=== PATIENT | female | born 1960 | race Caucasian/White ===

== ENCOUNTER 2022-10-16 11:39 | Emergency (ER) | payer MEDICARE, MEDICAID, SELFPAY ==
[2022-10-16 11:40] VITALS: BP 110/90; PULSE 103; RESP 20; TEMP 36.4; O2SAT 94; BMI 42.8
--- NOTE | 2022-10-16 11:52 | EKG12_ITS ---
Test Reason : Blood Pressure : / mmHG Vent. Rate : 079 BPM Atrial Rate : 079 BPM P-R Int : 194 ms QRS Dur : 084 ms QT Int : 404 ms P-R-T Axes : 043 006 042 degrees QTc Int : 463 ms Normal sinus rhythm Normal ECG Confirmed by ANDREW CAMARA, WISAM ([id number]), editor continuity and script ARUN DUEÑAS ([id number]) on 10/18/2022 1:07:14 PM Referred By: Confirmed By:WISAM MORALES MD
--- NOTE | 2022-10-16 11:52 | VDLE_ITS ---
Reason For Study: Bilateral leg swelling RIGHT LEFT GSV is normal. GSV is normal. CFV is compressible, spontaneous, phasic, CFV is compressible, spontaneous, phasic, competent and demonstrates normal competent, and demonstrates normal augmentation. augmentation. FV is compressible, spontaneous, phasic, FV is compressible, spontaneous, phasic, competent and demonstrates normal competent and demonstrates normal augmentation. augmentation. POP V is compressible, spontaneous, phasic, POP V is compressible, spontaneous, phasic, competent and demonstrates normal competent and demonstrates normal augmentation. augmentation. T/P Trunk is compressible. T/P Trunk is compressible. PTV is compressible. PTV is compressible. RT PerV is compressible. LT PerV is compressible. Procedure This is a venous duplex using B-mode, color flow and spectral Doppler. Exam performed in department. A preliminary report was called and/or faxed to Dr. Fraga. VL/Venous Duplex US - Anoop Extrem Interpretation Summary Deep veins of the bilateral lower extremities are patent and compressible segme ntally. There is no evidence of bilateral lower extremity deep vein thrombosis. The bilateral great saphenous veins appear patent and compressible segmentally. Ordering Physician: Gill Fraga Referring Physician: Zonia Chávez Performed By: Rocio Norwood RVT
--- NOTE | 2022-10-16 11:54 | EDS_ITS ---
HPI History of Present Illness Chief Complaint: Edema Informant: patient Onset/Context/Timing Onset: Days (4 to 5 days) Context: Gradual Onset Narrative Narrative: Patient presents secondary to bilateral lower extremity edema. She states she has been swollen from the knees down for the past 4 to 5 days. She does sit in a lift chair with her feet elevated during the day. She states she started seeping some clear fluid from her right leg today. She reports chronic shortness of breath that may be only slightly worse than baseline. No cough. No chest pain. She does not know of a history of CHF. [facility] Medical History (Updated 10/16/22 @ 13:[address] Gill Fraga MD) Anxiety and depression High cholesterol Hypertension Hypothyroidism Home Medications furosemide 40 mg tablet (Lasix) 40 mg PO DAILY #5 tabs 10/16/22 [Rx Last Taken Unknown] Allergy/AdvReac Type Severity Reaction Status Date / Time cefaclor [From Ceclor] Allergy Anaphylaxis Verified 10/16/22 11:43 codeine Allergy Anaphylaxis Verified 10/16/22 11:43 Penicillins Allergy Anaphylaxis Verified 10/16/22 11:43 Sulfa (Sulfonamide Allergy Anaphylaxis Verified 10/16/22 11:43 Antibiotics) Surgical History History of cholecystectomy History of hysterectomy History of shoulder replacement Hx of appendectomy S/P TKR (total knee replacement) Social History Smoking Status: Former smoker ROS ROS ED Constitutional Constitutional ED: Denies chills or fever(s) Eyes Eyes: Denies discharge from eye(s) ENT ENT ED: Denies discharge from eye(s), rhinorrhea or sore throat Cardiovascular Cardiovascular: Denies chest pain or palpitations Respiratory/Chest Respiratory/Chest: Reports dyspnea; Denies cough Gastrointestinal Gastrointestinal: Denies abdominal pain, nausea or vomiting Genitourinary Genitourinary ED: Denies difficulty urinating or dysuria Musculoskeletal Musculoskeletal: Reports other Details: Lower extremity edema ; Denies back pain or extremity pain Integumentary Denies Abrasions or rash Neurologic Neurologic: Reports paresthesias; Denies headache(s) or weakness Psychiatric Psychiatric: Denies anxiety or depression Allergic/Immunologic Allergic/Immunologic ED: Denies lip swelling or urticaria EXAM Physical Exam Const Vital Signs: 10/16/22 11:40 10/16/22 11:58 Temperature 97.6 F L Temperature Source Temporal Pulse Rate 103 H Respiratory Rate 20 H Respiratory Effort Short of Breath Respiratory Pattern Normal Blood Pressure 110/90 H Blood Pressure Mean 96 Pulse Ox 94 Oxygen Delivery Method Room Air Positive well nourished and well developed General Appearance ED: well developed HEENT Reports normocephalic and head/scalp atraumatic Eyes PERRL and EOMs intact bilaterally Neck supple Chest Wall inspection of chest normal and palpation of chest normal Resp normal respiratory effort and clear to auscultation bilaterally Cardio regular rate and regular rhythm GI normal to inspection, nondistended, normoactive bowel sounds Palpation: soft Extremity Extremity Narrative: 3+ bilateral lower extremity edema. No erythema or evidence of infection. Neuro oriented x3 Neuro Narrative: Paresthesias in the bilateral hands chronically. Currently being evaluated for carpal tunnel Sensorium / Orientation: alert Motor Exam: strength 5/5 throughout Psych mental status grossly normal Skin no rashes or lesions noted MDM MDM MDM Narrative Medical decision making narrative: EKG obtained to evaluate for cardiac arrhythmia/ischemia. Labwork obtained to evaluate for leukocytosis, anemia, and electrolyte derangement. Venous ultrasound of the lower extremities obtained to evaluate for DVT. Lab Data Labs: Laboratory Results - last 24 hr 10/16/22 11:55 WBC 8.0 RBC 3.67 L Hgb 11.2 L Hct 33.9 L MCV 92.4 MCH 30.5 MCHC 33.0 RDW Std Deviation 43.3 RDW Coeff of Vicki 12.8 Plt Count 238 MPV 10.1 Immature Gran % (Auto) 0.200 Neut % (Auto) 64.2 Lymph % (Auto) 17.0 L Lyman % (Auto) 15.5 H Eos % (Auto) 2.4 Baso % (Auto) 0.7 Absolute Neuts (auto) 5.2 Absolute Lymphs (auto) 1.36 Nucleated RBC % 0 Sodium 130 L Potassium 3.9 Chloride 97 L Carbon Dioxide 25.0 Anion Gap 8 BUN 24 H Creatinine 1.04 H Estim Creat Clear Calc 49.17 Est GFR (MDRD) Af Amer 69 Est GFR (MDRD) Non-Af 57 L BUN/Creatinine Ratio 23.1 H Glucose 91 Calcium 9.1 B-Natriuretic Peptide 79.8 Radiography Diagnostic Testing: Clinical Impression(s) from Imaging Studies Chest X-Ray 10/16/22 12:15 IMPRESSION: Mild degree of CHF. Electronically Signed: Dhruv Min MD at 12:25 EDT , EKG Initial EKG: Attestation: I personally reviewed and interpreted this EKG as follows: Interpretation: Sinus Rhythm (Sinus at 79 with no acute ischemia.) Treatment and Re-Evaluation :: CBC was normal white count 8.0 with a hemoglobin 11.2. Chemistry studies reveal sodium of 130 and a chloride of 97. I reviewed prior records and [facility] and in June of this year her sodium was also 130. BUN is 24 and creatinine is 1.04. BNP is 79. Portable chest x-ray per my interpretation reveals chronic changes with mild fluid overload. Radiology interpretation is reviewed and agrees. EKG reveals sinus rhythm. Test results discussed with the patient. Eloy wrap will be applied to the lower extremities for light compression. She was instructed on appropriate leg elevation. She will be treated with a 5-day burst of Lasix to help remove excessive fluid. At this time I see no evidence of infection in her legs but she was given warning signs for this. Return instructions are given. Discharge Plan Triage Chief Complaint: Edema ED Provider: Gill Fraga Dx/Rx/DC Orders Clinical Impression: Lymphedema Instructions: ED Lymphedema Prescriptions: New furosemide [Lasix] 40 mg tablet 40 mg PO DAILY Qty: 5 0RF Primary Care Provider: Zonia Chávez Referrals: Zonia Chávez, DO [Primary Care Provider] - 1-2 Weeks
--- NOTE | 2022-10-16 12:15 | RAD_ITS ---
STUDY: X-RAY CHEST REASON FOR EXAM: Female, 62 years old. sob TECHNIQUE: PA and lateral views of the chest. COMPARISON: None. FINDINGS: Mild degree of central vascular congestion. Bilateral apical pleural thickening. Normal size heart. Normal mediastinum and violeta. Normal visualized pulmonary arteries. There is atherosclerotic calcification of the aortic arch with tortuosity. There are diffuse degenerative changes of the visualized thoracic spine. Status post left reverse shoulder replacement. There is no demonstrated abnormality of the visualized soft tissue structures of the upper abdomen. RAD/Chest PA and Lateral IMPRESSION: Mild degree of CHF. Electronically Signed: Dhruv Min MD at 12:25 EDT ,
[2022-10-16 12:17] LABS: Absolute Lymphocyte Count 1.36 X10^3/uL (0.83-4.51); Absolute Neutrophil Count 5.2 X10^3/uL (2.0-7.7); Basophil# 0.06 X10^3/uL; Basophil% 0.7 % (0-1); Eosinophil# 0.19 X10^3/uL; Eosinophils% 2.4 % (0-5); Hematocrit 33.9 % (37-47); Hemoglobin 11.2 g/dL (12.0-15.0); Lymphocyte # 1.36 X10^3/ul (0.83-4.51); Mean Corpuscular Hgb 30.5 pg (27.0-32.0); Mean Corpuscular Volume 92.4 fL (81-99); Mean Platelet Vol. 10.1 fl (6.2-12.0); Monocyte# 1.24 X10^3/uL; Monocyte% 15.5 % (0-10); NRBC Flagged by Analyzer 0 % (0-5); Neutrophil # 5.15 X10^3/uL (2.7-7.7); Neutrophil % 64.2 % (47-70); Platelet Count 238 K/mm3 (150-450); RBC Distribution Width CV 12.8 % (11.6-14.6); RBC Distribution Width SD 43.3 fl (35.1-43.9); Red Blood Count 3.67 M/mm3 (4.2-5.4)
[2022-10-16 12:27] LABS: Anion Gap 8 (5-15); BUN 24 mg/dL (7-18); BUN/Creat Ratio 23.1 RATIO (10-20); Calcium,Total 9.1 mg/dL (8.5-10.1); Chloride 97 mmol/L (98-107); Creatinine, Serum 1.04 mg/dL (0.55-1.02); EST Glomerular Filtration Rate 57 mL/min (>60); Est Glom Filt Rate - Afr Amer 69 mL/min (>60); Estimated Creatinine Clearance 49.17 ml/min; Glucose 91 mg/dL (74-106); Potassium 3.9 mmol/L (3.5-5.1); Sodium Level 130 mmol/L (136-145)
[2022-10-16 12:54] LABS: BNP,B-Type NATRIURETIC PEPTIDE 79.8 pg/mL (0-100)
== END 2022-10-16 14:01 | disposition home or self-care (01) ==
PROVIDERS: Emergency Provider Emergency Medicine; PCP Family Medicine; Visit Provider Emergency Medicine
DX: I89.0 Lymphedema, not elsewhere classified (principal); I10 Essential (primary) hypertension; Z87.891 Personal history of nicotine dependence; E78.00 Pure hypercholesterolemia, unspecified; R60.0 Localized edema; R06.02 Shortness of breath
CPT/HCPCS: 71046; 80048; 83880; 85025; 93005; 93970; 99283; A4216

== ENCOUNTER 2022-11-05 13:00 | Outpatient (CLI) | payer MEDICARE, MEDICAID, SELFPAY ==
[2022-11-05 15:18] LABS: Absolute Lymphocyte Count 1.78 X10^3/uL (0.83-4.51); Absolute Neutrophil Count 4.3 X10^3/uL (2.0-7.7); Basophil# 0.07 X10^3/uL; Eosinophil# 0.13 X10^3/uL; Eosinophils% 1.8 % (0-5); Hematocrit 39.4 % (37-47); Hemoglobin 12.9 g/dL (12.0-15.0); Lymphocyte # 1.78 X10^3/ul (0.83-4.51); Lymphocyte % 25.1 % (19-41); Mean Corp Hgb Conc 32.7 g/dL (32-36); Mean Corpuscular Hgb 29.8 pg (27.0-32.0); Mean Platelet Vol. 9.7 fl (6.2-12.0); Monocyte# 0.79 X10^3/uL; Monocyte% 11.2 % (0-10); NRBC Flagged by Analyzer 0 % (0-5); Neutrophil # 4.28 X10^3/uL (2.7-7.7); Neutrophil % 60.5 % (47-70); Platelet Count 350 K/mm3 (150-450); RBC Distribution Width CV 13.2 % (11.6-14.6); RBC Distribution Width SD 43.8 fl (35.1-43.9); RET-HE 35.3 pg (30-35); Red Blood Count 4.33 M/mm3 (4.2-5.4); Reticulocyte Count 1.56 % (0.5-1.5); White Blood Count 7.1 K/mm3 (4.4-11.0)
[2022-11-05 15:50] LABS: Osmolality, Urine 278 mOsm/KG
[2022-11-05 16:02] LABS: Vitamin B12 490 pg/mL (211-911)
[2022-11-05 16:29] LABS: Microalbumin,Random Urine < 5.0 mg/L (NO RANGE EST.); Urine Sodium 70 mmol/L (Not Establ.)
[2022-11-05 16:50] LABS: AST(SGOT) 10 U/L (15-37); Alanine Aminotransfer ALT/SGPT 17 U/L (13-56); Albumin, Serum 3.8 g/dL (3.2-5.0); Alkaline Phosphatase 99 U/L (45-117); Anion Gap 8 (5-15); BUN 16 mg/dL (7-18); BUN/Creat Ratio 15.7 RATIO (10-20); Chloride 101 mmol/L (98-107); Cholesterol 144 mg/dL (200); Creatinine, Serum 1.02 mg/dL (0.55-1.02); EST Glomerular Filtration Rate 58 mL/min (>60); Est Glom Filt Rate - Afr Amer 70 mL/min (>60); Ferritin 107 ng/mL (8-252); Globulin 3.9 g/dL (2.2-4.2); Glucose 88 mg/dL (74-106); High Density Lipoprotein 64 mg/dL; Potassium 3.5 mmol/L (3.5-5.1); Protein, Total 7.7 g/dL (6.4-8.2); Sodium Level 135 mmol/L (136-145); Thyroid Stim Hormone (TSH) 1.89 uIU/mL (0.358-3.74); Triglycerides 75 mg/dL; Very Low Density Lipoprotein 15 mg/dL (5-40)
[2022-11-05 17:22] LABS: Hemoglobin A1c 5.9 % (3.8-5.6)
== END 2022-11-05 23:59 | disposition home or self-care (01) ==
LOC: MTLAB 13:01
PROVIDERS: PCP Family Medicine; Referring Provider Family Medicine; Visit Provider Family Medicine
DX: I10 Essential (primary) hypertension (principal); E03.9 Hypothyroidism, unspecified; D64.9 Anemia, unspecified; E78.2 Mixed hyperlipidemia; E87.1 Hypo-osmolality and hyponatremia; Z68.39 Body mass index [BMI] 39.0-39.9, adult; E66.9 Obesity, unspecified
CPT/HCPCS: 36415; 80053; 80061; 82043; 82570; 82607; 82728; 83036; 83935; 84300; 84443; 85025; 85045

== ENCOUNTER 2022-12-17 14:30 | Outpatient (RCR) | payer MEDICARE, MEDICAID, SELFPAY ==
--- NOTE | 2022-09-19 14:02 | HP.PTEVAL ---
Patient's Visit Information Visit Information Visit Information: ROSALINDA KINSEY is a 62 year old F referred to Physical Therapy by NELLY CRAMER with a diagnosis of Left Reverse TSA. Date of Evaluation: 09/19/22 Physical Therapist: Tawana Garcia DPT Visit Plan Frequency: 2x /Week Duration: 4 Weeks Plan: Left Shoulder Reverse TSA- Gentle Active/Passive ROM- 5 lbs max resistance and no wt bearing left arm til 09/18/22 HEP Given IE: Cane Flexion Seated, Cane Abd Seated, Cane Wall Wash Flexion Subjective Subjective: June 18 Left Reverse Total Shoulder By Dr. Wiley-she reports that she just moved to [place]. She has not been in formal PT but has been doing exercises from the MD (towel AAROM overhead, side to side and and circles). Worst: 06/19 Agg: using it too much. Eases: pain medication- Percocet but she takes them for her back- fdc use- pain mgmt. Best: 03/22. The pain is located around the whole shoulder- no radiating pain. She still has some numbness in her forearm and tingling in her hand- the MD is aware and they are planning to do an EMG. She is planning to see someone for her right shoulder. No neck pain, SALDAÑA, blurred vision or dizziness. Right hand dominate. Lives alone- fully I with all ADL's- challenged with washing her back. Sleep: in bed- not disturbed. Work: does not work. Goals: be able to use her arm better PMHx: HTN, thyroid issues, sleep issues, anxiety, depression. Meds: Percoset, potassium, vitamin D, rapamil, seraquip, trazadone, busbar, eviqor, losartin, copatan, synthroid, cholesterol medication Objective Objective: Posture: FH, RS- can correct with verbal and tactile cues but does not maintain Gait: decreased arm swing and trunk rotation Palpation: tender along upper trap, bicipital groove, down the bicep ROM: Cervical: WFL, Elbow/Wrist: WFL Shoulder: AROM: Flexion: 90 degrees Abd: 80 with compensation IR: lateral pocket, ER: 50 degrees- AAROM: Flexion: 140 degrees, Abd: 130 degrees Strength: Shoulder: isometric: 4/5 throughout, Elbow: 4+/5, Interior Design Director: Right: 40 Left: 30 Balance/Special Test Scores Quick DASH Score: 38.6350 Goals Goal 1:: Patient will be I with HEP and progression Goal Time Frame: 4-6 Weeks Goal 2:: Patient will maintain proper posture t/o tx session to demo increased scap s/s Goal Time Frame: 4-6 Weeks Goal 3:: Patient will demo full AROM of the left shoulder Goal Time Frame: 4-6 Weeks Goal 4:: Patient will report 80% improvement Goal Time Frame: 4-6 Weeks Rehabilitation Potential Physical Therapy Diagnosis: Patient presents s/p TSA Left 06/18/22- she has decreased ROM, scapular strength/stabilization and muscular endurance leading to poor posture and decreased participation in ADL's. Rehabilitation Potential: Good Anticipated Interventions Patient/Client Instruction: Educate patient on: Benefits of Fitness Program Therapeutic Exercise to Include: Strength training, Endurance training, Coordination, Agility training, Body mechanics, Postural training, Flexibilty training, Passive ROM, Active ROM, Dynamic Lumbar Stabilization and Scapular Strength/Stabilization For the Purpose of:: To improve muscle performance and motor function Manual Therapy Techniques to Include: Passive ROM and Soft tissue mobilization TENS: Yes Cryotherapy (ice pack, ice massage): Yes Thermo therapy (hot pack): Yes Ultrasound (thermal/non thermal): No Text: Thank you for the opportunity to evaluate your patient. For Medicare and Medicare HMO plans, please review the plan of care and approve it. It will need to be FAXED BACK to us at [phone] for Medicare purposes. For Medicare only, by signing this I certify the plan of care. Please let me know if there are questions or concerns regarding this plan of care. Physician Signature: Date:
--- NOTE | 2022-11-07 13:09 | HP.PTREVAL_ITS ---
Re-Evaluation Intro: NELLY CRAMER, It has been my pleasure to treat ROSALINDA VALE over the last 10 visits for Left Reverse TSA. Please see the progress note below for an update on the physical therapy plan of care! Subjective Subjective: Patient reports that the shoulder is sore today due to the weather- the pain comes and goes. Worst: 04/19. She feels that she is 70% better than she was. She feels that she is still weak- she feels that more PT is warranted. Objective Objective/Function: Posture: FH, RS- can correct with verbal and tactile cues but does not maintain Gait: no deviation noted- good arm swing and trunk rotation Palpation: tender along upper trap, bicipital groove ROM: Cervical: WFL, Elbow/Wrist: WFL Shoulder: AROM: Flexion: 120 degrees Abd: 90 IR: lateral pocket, ER: 50 degrees- AAROM: Flexion: 140 degrees, Abd: 130 degrees Strength: Shoulder: isometric: 4+/5 throughout, Elbow: 4+/5, Security And Compliance Analyst: Right: 40 Left: 30 Plan Plan Plan: 11/07/22: Continue 2x a week for 4 weeks with current POC Left Shoulder Reverse TSA- Gentle Active/Passive ROM- 5 lbs max resistance and no wt bearing left arm til 09/18/22 HEP Given IE: Cane Flexion Seated, Cane Abd Seated, Cane Wall Wash Flexion Balance/Gait/Functional tests Balance/Special Test Scores Quick DASH Score: 34.0900 Goals Goals Goal 1:: Patient will be I with HEP and progression Goal Time Frame: 4-6 Weeks Goal Progress: Progressing Goal 2:: Patient will maintain proper posture t/o tx session to demo increased scap s/s Goal Time Frame: 4-6 Weeks Goal Progress: Progressing Goal 3:: Patient will demo full AROM of the left shoulder Goal Time Frame: 4-6 Weeks Goal Progress: Progressing Goal 4:: Patient will report 80% improvement Goal Time Frame: 4-6 Weeks Goal Progress: Progressing Anticipated Interventions Anticipated Interventions Patient/Client Instruction: Educate patient on: Benefits of Fitness Program Therapeutic Exercise to Include: Strength training, Endurance training, Coordination, Agility training, Body mechanics, Postural training, Flexibilty training, Passive ROM, Active ROM, Dynamic Lumbar Stabilization and Scapular Strength/Stabilization For the Purpose of:: To improve muscle performance and motor function Manual Therapy Techniques to Include: Passive ROM and Soft tissue mobilization TENS: Yes Cryotherapy (ice pack, ice massage): Yes Thermo therapy (hot pack): Yes Ultrasound (thermal/non thermal): No Re-Evaluation Ending Re-evaluation ending: Please do not hesitate to contact me at [phone] by phone or if you have questions or concerns regarding this new plan of care! Sincerely, AYLA HanksT
--- NOTE | 2022-12-17 15:22 | HP.PTDCSUM ---
Discharge Summary D/C summary: It has been my pleasure to treat ROSALINDA VALE referred by NELLY CRAMER, with the diagnosis of Left Reverse TSA for a total of 18 visit(s). Discharge Date: 12/17/22 Please see the following information for a summary of their discharge status. Subjective Subjective: Doing well .able to do all my ADLS Pain Left Shoulder: Pain Intensity (Out of 10): 0 Overall Improvement % Improvement: 80 Objective Objective/Function: AROM: shoulder flexion 150 degrees ,120 degrees abduction , ER 80 degrees ,IR L1 MMT: IR/ER 4-/5 DELTPOID 3+/5 Goals Goal 1:: Patient will be I with HEP and progression Goal Progress: Goal Met Goal 2:: Patient will maintain proper posture t/o tx session to demo increased scap s/s Goal Progress: Goal Met Goal 3:: Patient will demo full AROM of the left shoulder Goal Progress: Progressing Goal 4:: Patient will report 80% improvement Goal Progress: Progressing Plan Plan: D/C D/C Information Discharge Comments: HEP d/c sentence: If there are questions or concerns regarding this patient's physical therapy, please feel free to call me at [phone]. Thank you for the referral of this patient. Sincerely, Iam Pack, PT, Cert MDT, OCS Balance/Gait/Functional tests Balance/Special Test Scores Quick DASH Score: 9.0900 Improvement % Improvement: 80
== END 2022-12-17 19:00 | disposition home or self-care (01) ==
LOC: PT 14:30
DX: Z96.612 Presence of left artificial shoulder joint (principal)
CPT/HCPCS: 97110; 97140; 97162; 97164; 97530

== ENCOUNTER → 2023-03-18 | Outpatient (CLI) | payer MEDICARE, MEDICAID, SELFPAY ==
[2023-03-18 14:43] LABS: Amphetamine Urine VISTA NEGATIVE (<1000 ng/mL); Barbiturate Urine VISTA NEGATIVE (< 200 ng/mL); Benzodiazepine Urine VISTA NEGATIVE (< 200 ng/mL); Cocaine Urine VISTA NEGATIVE (< 300 ng/mL); Ecstacy Urine VISTA NEGATIVE (< 500 ng/mL); Methadone Urine VISTA NEGATIVE (< 300 ng/mL); PCP Urine VISTA NEGATIVE (< 25 ng/mL); THC Urine VISTA NEGATIVE (< 50 ng/mL); Vista UDS pH Range 6
== END | disposition home or self-care (01) ==
LOC: LAB 12:34
PROVIDERS: PCP Family Medicine; Referring Provider Anesthesiology; Visit Provider Anesthesiology
DX: F11.20 Opioid dependence, uncomplicated (principal)
CPT/HCPCS: 80307

== ENCOUNTER → 2023-07-15 | Outpatient (CLI) | payer MEDICARE, MEDICAID, SELFPAY ==
[2023-07-15 18:16] LABS: Anion Gap 8 (5-15); BUN 20 mg/dL (7-18); BUN/Creat Ratio 17.7 RATIO (10-20); Calcium,Total 9.5 mg/dL (8.5-10.1); Chloride 93 mmol/L (98-107); Creatinine, Serum 1.13 mg/dL (0.55-1.02); EST Glomerular Filtration Rate 51 mL/min (>60); Est Glom Filt Rate - Afr Amer 62 mL/min (>60); Glucose 89 mg/dL (74-106); Potassium 3.3 mmol/L (3.5-5.1); Sodium Level 130 mmol/L (136-145)
== END | disposition home or self-care (01) ==
LOC: MTLAB 15:51
PROVIDERS: PCP Family Medicine; Referring Provider Family Medicine; Visit Provider Family Medicine
DX: I89.0 Lymphedema, not elsewhere classified (principal)
CPT/HCPCS: 36415; 80048

== ENCOUNTER 2023-09-09 16:00 | Outpatient (RCR) | payer MEDICARE, MEDICAID, SELFPAY ==
--- NOTE | 2023-03-24 09:59 | HP.PTEVAL_ITS ---
Patient's Visit Information Visit Information Visit Information: ROSALINDA VALE is a 62 year old F referred to Physical Therapy by Dr. Zia Patterson MD with a diagnosis of Pain in L shoulder. Date of Evaluation: 03/24/23 Physical Therapist: VANDANA Kaur Visit Plan Frequency: 2x /Week Duration: 2 Months Plan: 2X/ week for 8 weeks for neck stretching (especially on the L), c-spine AROM, postural exercises, RC strengthening. If insurance approves may do some MT to the L levator and trap region/US HEP: c-spine side bending stretch and levator stretch Subjective Subjective: Pt had her L TSR last June and then 2-3 weeks ago she started having aching and pain into her neck especially while sleeping and wakes up a couple times a night. She has no N&T. It is sharp pain. She has tingling in B hands and had CT surgery on the R hand and now has trigger finger and still needs CT surgery on the L. She has a little bit of weakness in her L arm but nothing new. Her pillow is older. It helps for her to get up at night and move it. She does not sleep on her L shoulder. She has neck pain that is now on the L side. R handed. Pain L shoulder pain: Pain Intensity (Out of 10): 4 Pain Intensity Range: 8 Comment: At night Neck pain: Pain Intensity (Out of 10): 4 Pain Intensity Range: 8 Objective Objective: R handed: R 15# and L 20# Plastic Parts Fabricator strength C-spine AROM: Rot L 50% (painful) and Rot R 100%, flex 100%, ext 10%, SB B 25% Bicep reflex 2+/3 UE AROM: L shoulder flex approx 160, ABD 100, ER 35, IR L1 R shoulder flex approx 160, ABD approx 120, ER R 65, IR T12 UE MMT: R shoulder flex 9 and L 6.1 R shoulder ABD 5.8 and 4.8 R shoulder ER 11.8 and L 8 R shoulder IR 8.2 and L 5.5 Posture: sits with rounded shoulders Palpation Extremely tight R mid trap and lower trap/LEVATOR.. tender to palpation and decreased C-spine ROM Balance/Special Test Scores Quick DASH Score: 36.3625 Goals Goal 1:: I HEP Goal Time Frame: 6-8 Weeks Goal 2:: Increase c-spine AROM (Rot L 50% (painful) and Rot R 100%, flex 100%, ext 10%, SB B 25%) Goal Time Frame: 6-8 Weeks Goal 3:: Increase posture Goal Time Frame: 6-8 Weeks Goal 4:: Decrease L sided neck and shoulder pain by 50% Goal Time Frame: 6-8 Weeks Goal 5:: Increase shoulder L strength (at time of the eval: R shoulder flex 9 and L 6.1 R shoulder ABD 5.8 and 4.8 R shoulder ER 11.8 and L 8 R shoulder IR 8.2 and L 5.5) Rehabilitation Potential Rehabilitation Potential: Good Anticipated Interventions Patient/Client Instruction: Educate patient on: Condition and Plan of Care For the Purpose of:: To decrease pain, To increase ROM, To improve nutrient delivery to tissue, To improve muscle performance and motor function, To improve ability to perform ADL's, To increase tolerance to activity/condition/position, To improve performance and independence with ADL's, To improve health of tissue, To decrease soft tissue restriction and To increase flexibility/ROM Therapeutic Exercise to Include: Strength training, Postural training, Flexibilty training, Passive ROM, Active ROM and Scapular Strength/Stabilization For the Purpose of:: To decrease pain, To decrease swelling/inflammation, To increase ROM, To improve nutrient delivery to tissue, To improve muscle performance and motor function, To improve ability to perform ADL's, To increase tolerance to activity/condition/position, To improve health of tissue, To d ecrease soft tissue restriction and To increase flexibility/ROM Manual Therapy Techniques to Include: Passive ROM, Functional dry needling and Soft tissue mobilization For the Purpose of:: To decrease pain, To increase ROM, To improve nutrient delivery to tissue, To improve muscle performance and motor function, To improve ability to perform ADL's, To improve health of tissue, To decrease soft tissue restriction and To increase flexibility/ROM Thermo therapy (hot pack): Yes Ultrasound (thermal/non thermal): Yes For the Purpose of:: To decrease pain, To decrease swelling/inflammation, To increase ROM and To improve nutrient delivery to tissue Text: Thank you for the opportunity to evaluate your patient. For Medicare and Medicare HMO plans, please review the plan of care and approve it. It will need to be FAXED BACK to us at [phone] for Medicare purposes. For Medicare only, by signing this I certify the plan of care. Please let me know if there are questions or concerns regarding this plan of c are. Physician Signature: Date:
--- NOTE | 2023-06-18 16:30 | HP.PTREVAL ---
Re-Evaluation Intro: Dr. Zia Patterson MD, It has been my pleasure to treat ROSALINDA VALE over the last 9 visits for Pain in L shoulder (L TSA June 2022). Please see the progress note below for an update on the physical therapy plan of care! Subjective Subjective: Pt reports that she is still having trouble with her L shoulder tightness. She has pain when she moves the arm in certain directions. She can only sleep on her shoulder for short periods of time. Therapy was helping her and then she started some medical issues and could not come for awhile and wants to continue with her Shoulder therapy Objective Objective/Function: Shoulder AROM L shoulder flex 121 L shoulder ABD 60 L shoulder IR greater trochanter R shoulder flex 7.7 and L 5.4 R shoulder ABD 8.1 and 3.4 R shoulder ER 8.6 and L 5.2 R shoulder IR 8.9 and L 5.2 c-spine AROM (Rot L 50% (still painful) and Rot R 100%, flex 100%, ext 10%, SB R 50 and L 25%) Plan Plan Plan: Ask for additional visits and shoulder rehab for 2X/ week for 8 weeks for neck stretching (especially on the L), c-spine AROM, postural exercises, RC strengthening. If insurance approves may do some MT to the L levator and trap region/US HEP: c-spine side bending stretch and levator stretch Balance/Gait/Functional tests Balance/Special Test Scores Quick DASH Score: 22.7250 Goals Goals Goal 1:: I HEP Goal Time Frame: 6-8 Weeks Goal 2:: Increase c-spine AROM (Rot L 50% (painful) and Rot R 100%, flex 100%, ext 10%, SB B 25%) Goal Time Frame: 6-8 Weeks Goal 3:: Increase posture Goal Time Frame: 6-8 Weeks Goal 4:: Decrease L sided neck and shoulder pain by 50% Goal Time Frame: 6-8 Weeks Goal 5:: Increase shoulder L strength (at time of the Re-eval: R shoulder flex 7.7 and L 5.4 R shoulder ABD 8.1 and 3.4 R shoulder ER 8.6 and L 5.2 R shoulder IR 8.9 and L 5.2) Goal Time Frame: 6-8 Weeks Goal 6:: Increase L shoulder AROM (at the time of the Re-eval: L shoulder flex 121 L shoulder ABD 60 L shoulder IR greater trochanter). Goal Time Frame: 6-8 Weeks Anticipated Interventions Anticipated Interventions Patient/Client Instruction: Educate patient on: Condition and Plan of Care For the Purpose of:: To decrease pain, To increase ROM, To improve nutrient delivery to tissue, To improve muscle performance and motor function, To improve ability to perform ADL's, To increase tolerance to activity/condition/position, To improve performance and independence with ADL's, To improve health of tissue, To decrease soft tissue restriction and To increase flexibility/ROM Therapeutic Exercise to Include: Strength training, Postural training, Flexibilty training, Passive ROM, Active ROM and Scapular Strength/Stabilization For the Purpose of:: To decrease pain, To decrease swelling/inflammation, To increase ROM, To improve nutrient delivery to tissue, To improve muscle performance and motor function, To improve ability to perform ADL's, To increase tolerance to activity/condition/position, To improve health of tissue, To decrease soft tissue restriction and To increase flexibility/ROM Manual Therapy Techniques to Include: Passive ROM, Functional dry needling and Soft tissue mobilization For the Purpose of:: To decrease pain, To increase ROM, To improve nutrient delivery to tissue, To improve muscle performance and motor function, To improve ability to perform ADL's, To improve health of tissue, To decrease soft tissue restriction and To increase flexibility/ROM Thermo therapy (hot pack): Yes Ultrasound (thermal/non thermal): Yes For the Purpose of:: To decrease pain, To decrease swelling/inflammation, To increase ROM and To improve nutrient delivery to tissue Re-Evaluation Ending Re-evaluation ending: Please do not hesitate to contact me at [phone] by phone or if you have questions or concerns regarding this new plan of care! Sincerely, Sangeetha Major, MPT
--- NOTE | 2023-06-18 16:51 | HP.PTEVAL_ITS ---
Patient's Visit Information Visit Information Visit Information: ROSALINDA VALE is a 62 year old F referred to Physical Therapy by Dr. Zia Patterson MD with a diagnosis of Pain in L shoulder (L TSA June 2022). Date of Evaluation: 03/24/23 Physical Therapist: VANDANA Kaur Visit Plan Frequency: 2x /Week Duration: 2 Months Plan: Ask for additional visits and shoulder rehab for 2X/ week for 8 weeks for neck stretching (especially on the L), c-spine AROM, postural exercises, RC strengthening. If insurance approves may do some MT to the L levator and trap region/US HEP: c-spine side bending stretch and levator stretch Subjective Subjective: Pt had her L TSR last June and then 2-3 weeks ago she started having aching and pain into her neck especially while sleeping and wakes up a couple times a night. She has no N&T. It is sharp pain. She has tingling in B hands and had CT surgery on the R hand and now has trigger finger and still needs CT surgery on the L. She has a little bit of weakness in her L arm but nothing new. Her pillow is older. It helps for her to get up at night and move it. She does not sleep on her L shoulder. She has neck pain that is now on the L side. R handed. Pain L shoulder pain: Pain Intensity (Out of 10): 6 Pain Intensity Range: 8 Comment: At night Neck pain: Pain Intensity (Out of 10): 0 Pain Intensity Range: 8 Objective Objective: R handed: R 15# and L 20# Electric Tape Slitter strength C-spine AROM: Rot L 50% (painful) and Rot R 100%, flex 100%, ext 10%, SB B 25% Bicep reflex 2+/3 UE AROM: L shoulder flex approx 160, ABD 100, ER 35, IR L1 R shoulder flex approx 160, ABD approx 120, ER R 65, IR T12 UE MMT: R shoulder flex 9 and L 6.1 R shoulder ABD 5.8 and 4.8 R shoulder ER 11.8 and L 8 R shoulder IR 8.2 and L 5.5 Posture: sits with rounded shoulders Palpation Extremely tight R mid trap and lower trap/LEVATOR.. tender to palpation and decreased C-spine ROM Balance/Special Test Scores Oswestry Low Back Score: 23 Quick DASH Score: 22.7250 Goals Goal 1:: I HEP Goal Time Frame: 6-8 Weeks Goal 2:: Increase c-spine AROM (Rot L 50% (painful) and Rot R 100%, flex 100%, ext 10%, SB B 25%) Goal Time Frame: 6-8 Weeks Goal 3:: Increase posture Goal Time Frame: 6-8 Weeks Goal 4:: Decrease L sided neck and shoulder pain by 50% Goal Time Frame: 6-8 Weeks Goal 5:: Increase shoulder L strength (at time of the Re-eval: R shoulder flex 7.7 and L 5.4 R shoulder ABD 8.1 and 3.4 R shoulder ER 8.6 and L 5.2 R shoulder IR 8.9 and L 5.2) Goal Time Frame: 6-8 Weeks Goal 6:: Increase L shoulder AROM (at the time of the Re-eval: L shoulder flex 121 L shoulder ABD 60 L shoulder IR greater trochanter). Goal Time Frame: 6-8 Weeks Rehabilitation Potential Rehabilitation Potential: Good Anticipated Interventions Patient/Client Instruction: Educate patient on: Condition and Plan of Care For the Purpose of:: To decrease pain, To increase ROM, To improve nutrient delivery to tissue, To improve muscle performance and motor function, To improve ability to perform ADL's, To increase tolerance to activity/condition/position, To improve performance and independence with ADL's, To improve health of tissue, To decrease soft tissue restriction and To increase flexibility/ROM Therapeutic Exercise to Include: Strength training, Postural training, Flexibilty training, Passive ROM, Active ROM and Scapular Strength/Stabilization For the Purpose of:: To decrease pain, To decrease swelling/inflammation, To increase ROM, To improve nutrient delivery to tissue, To improve muscle performance and motor function, To improve ability to perform ADL's, To increase tolerance to activity/condition/position, To improve health of tissue, To decrease soft tissue restriction and To increase flexibility/ROM Manual Therapy Techniques to Include: Passive ROM, Functional dry needling and Soft tissue mobilization For the Purpose of:: To decrease pain, To increase ROM, To improve nutrient delivery to tissue, To improve muscle performance and motor function, To improve ability to perform ADL's, To improve health of tissue, To decrease soft tissue restriction and To increase flexibility/ROM Thermo therapy (hot pack): Yes Ultrasound (thermal/non thermal): Yes For the Purpose of:: To decrease pain, To decrease swelling/inflammation, To increase ROM and To improve nutrient delivery to tissue Text: Thank you for the opportunity to evaluate your patient. For Medicare and Medicare HMO plans, please review the plan of care and approve it. It will need to be FAXED BACK to us at [phone] for Medicare purposes. For Medicare only, by signing this I certify the plan of care. Please let me know if there are questions or concerns regarding this plan of care. Physician Signature: Date:
--- NOTE | 2023-08-13 18:48 | HP.PTREVAL_ITS ---
Re-Evaluation Intro: Dr. Zia Patterson MD, It has been my pleasure to treat ROSALINDA VALE over the last 15 visits for Pain in L shoulder (L TSA June 2022). Please see the progress note below for an update on the physical therapy plan of care! Subjective Subjective: another started by mistake Objective Objective/Function: Rot L 75% and Rot R 100%, flex 100%, ext 50%, SB B 75%) R shoulder flex 7.7 and L 7.1 R shoulder ABD 8.1 and 3.4 R shoulder ER 8.6 and L 6 R shoulder IR 8.9 and L 7.8 : L shoulder flex 134 L shoulder ABD 160 Plan Plan Plan: Re-check with Sangeetha REYEST. Ask for additional visits and shoulder rehab for 2X/ week for 8 weeks for neck stretching (especially on the L), c-spine AROM, postural exercises, RC strengthening. If insurance approves may do some MT to the L levator and trap region/US HEP: c-spine side bending stretch and levator stretch Balance/Gait/Functional tests Balance/Special Test Scores Oswestry Low Back Score: 21 Quick DASH Score: 20.4525 Goals Goals Goal 1:: I HEP Goal Time Frame: 6-8 Weeks Goal Progress: Goal Met Goal 2:: Increase c-spine AROM (Rot L 50% (painful) and Rot R 100%, flex 100%, ext 10%, SB B 25%) Goal Time Frame: 6-8 Weeks Goal Progress: Goal Met Goal 3:: Increase posture Goal Time Frame: 6-8 Weeks Goal Progress: Progressing Goal 4:: Decrease L sided neck and shoulder pain by 50% Goal Time Frame: 6-8 Weeks Goal Progress: Goal Met Goal 5:: Increase shoulder L strength (at time of the Re-eval: R shoulder flex 7.7 and L 5.4 R shoulder ABD 8.1 and 3.4 R shoulder ER 8.6 and L 5.2 R shoulder IR 8.9 and L 5.2) Goal Time Frame: 6-8 Weeks Goal Progress: Goal Met Goal 6:: Increase L shoulder AROM (at the time of the Re-eval: L shoulder flex 121 L shoulder ABD 60 L shoulder IR greater trochanter). Goal Time Frame: 6-8 Weeks Goal Progress: Goal Met Anticipated Interventions Anticipated Interventions Patient/Client Instruction: Educate patient on: Condition and Plan of Care For the Purpose of:: To decrease pain, To increase ROM, To improve nutrient delivery to tissue, To improve muscle performance and motor function, To improve ability to perform ADL's, To increase tolerance to activity/condition/position, To improve performance and independence with ADL's, To improve health of tissue, To decrease soft tissue restriction and To increase flexibility/ROM Therapeutic Exercise to Include: Strength training, Postural training, Flexibilt y training, Passive ROM, Active ROM and Scapular Strength/Stabilization For the Purpose of:: To decrease pain, To decrease swelling/inflammation, To increase ROM, To improve nutrient delivery to tissue, To improve muscle performance and motor function, To improve ability to perform ADL's, To increase tolerance to activity/condition/position, To improve health of tissue, To decrease soft tissue restriction and To increase flexibility/ROM Manual Therapy Techniques to Include: Passive ROM, Functional dry needling and Soft tissue mobilization For the Purpose of:: To decrease pain, To increase ROM, To improve nutrient delivery to tissue, To improve muscle performance and motor function, To improve ability to perform ADL's, To improve health of tissue, To decrease soft tissue restriction and To increase flexibility/ROM Thermo therapy (hot pack): Yes Ultrasound (thermal/non thermal): Yes For the Purpose of:: To decrease pain, To decrease swelling/inflammation, To increase ROM and To improve nutrient delivery to tissue Re-Evaluation Ending Re-evaluation ending: Please do not hesitate to contact me at [phone] by phone or if you have questions or concerns regarding this new plan of care! Sincerely, VANDANA Kaur
== END 2023-09-09 19:00 | disposition home or self-care (01) ==
LOC: PT 16:00
PROVIDERS: PCP Family Medicine; Referring Provider Anesthesiology; Visit Provider Anesthesiology
DX: M25.512 Pain in left shoulder (principal)
CPT/HCPCS: 97035; 97110; 97113; 97140; 97162; 97164; 97530

== ENCOUNTER → 2023-09-16 | Outpatient (CLI) | payer MEDICARE, MEDICAID, SELFPAY ==
[2023-09-16 17:42] LABS: Absolute Neutrophil Count 4.8 X10^3/uL (2.0-7.7); Basophil# 0.07 X10^3/uL; Basophil% 0.9 % (0-1); Eosinophil# 0.11 X10^3/uL; Eosinophils% 1.4 % (0-5); Hematocrit 35.9 % (37-47); Hemoglobin 11.9 g/dL (12.0-15.0); Lymphocyte % 21.1 % (19-41); Mean Corp Hgb Conc 33.1 g/dL (32-36); Mean Corpuscular Hgb 30.4 pg (27.0-32.0); Mean Corpuscular Volume 91.8 fL (81-99); Mean Platelet Vol. 9.8 fl (6.2-12.0); Monocyte# 0.96 X10^3/uL; Monocyte% 12.6 % (0-10); NRBC Flagged by Analyzer 0 % (0-5); Neutrophil % 63.3 % (47-70); Platelet Count 250 K/mm3 (150-450); RBC Distribution Width CV 13.5 % (11.6-14.6); RBC Distribution Width SD 45.6 fl (35.1-43.9); Red Blood Count 3.91 M/mm3 (4.2-5.4); White Blood Count 7.6 K/mm3 (4.4-11.0)
[2023-09-16 17:53] LABS: ALB/GLOB Ratio 0.8 RATIO (0.9-2.4); AST(SGOT) 13 U/L (15-37); Alanine Aminotransfer ALT/SGPT 22 U/L (13-56); Albumin, Serum 3.3 g/dL (3.2-5.0); Alkaline Phosphatase 79 U/L (45-117); Anion Gap 9 (5-15); BUN 23 mg/dL (7-18); Chloride 94 mmol/L (98-107); EST Glomerular Filtration Rate 59 mL/min (>60); Est Glom Filt Rate - Afr Amer 72 mL/min (>60); Globulin 3.9 g/dL (2.2-4.2); Glucose 104 mg/dL (74-106); Potassium 3.3 mmol/L (3.5-5.1); Protein, Total 7.2 g/dL (6.4-8.2); Sodium Level 134 mmol/L (136-145)
[2023-09-16 20:25] LABS: BNP,B-Type NATRIURETIC PEPTIDE 24.6 pg/mL (0-100)
== END | disposition home or self-care (01) ==
LOC: MTLAB 16:37
PROVIDERS: PCP Family Medicine; Referring Provider Nurse Practitioner Family; Visit Provider Nurse Practitioner Family
DX: R06.02 Shortness of breath (principal)
CPT/HCPCS: 36415; 80053; 83880; 85025

== ENCOUNTER → 2023-09-23 | Outpatient (CLI) | payer MEDICARE, MEDICAID, SELFPAY ==
[2023-09-23 12:10] LABS: Absolute Lymphocyte Count 1.65 X10^3/uL (0.83-4.51); Absolute Neutrophil Count 3.4 X10^3/uL (2.0-7.7); Basophil# 0.06 X10^3/uL; Eosinophil# 0.13 X10^3/uL; Eosinophils% 2.2 % (0-5); Hematocrit 36.4 % (37-47); Hemoglobin 11.9 g/dL (12.0-15.0); Lymphocyte # 1.65 X10^3/ul (0.83-4.51); Lymphocyte % 27.7 % (19-41); Mean Corp Hgb Conc 32.7 g/dL (32-36); Mean Corpuscular Hgb 30.2 pg (27.0-32.0); Mean Corpuscular Volume 92.4 fL (81-99); Mean Platelet Vol. 10.1 fl (6.2-12.0); Monocyte# 0.67 X10^3/uL; Monocyte% 11.2 % (0-10); NRBC Flagged by Analyzer 0 % (0-5); Neutrophil # 3.43 X10^3/uL (2.7-7.7); Neutrophil % 57.6 % (47-70); Platelet Count 263 K/mm3 (150-450); RBC Distribution Width CV 13.9 % (11.6-14.6); RBC Distribution Width SD 47.4 fl (35.1-43.9); Red Blood Count 3.94 M/mm3 (4.2-5.4)
[2023-09-23 12:28] LABS: ALB/GLOB Ratio 0.8 RATIO (0.9-2.4); AST(SGOT) 17 U/L (15-37); Alanine Aminotransfer ALT/SGPT 25 U/L (13-56); Albumin, Serum 3.4 g/dL (3.2-5.0); Alkaline Phosphatase 77 U/L (45-117); Anion Gap 4 (5-15); BUN 15 mg/dL (7-18); BUN/Creat Ratio 14.3 RATIO (10-20); Calcium,Total 9.4 mg/dL (8.5-10.1); Chloride 97 mmol/L (98-107); Creatinine, Serum 1.05 mg/dL (0.55-1.02); EST Glomerular Filtration Rate 56 mL/min (>60); Est Glom Filt Rate - Afr Amer 68 mL/min (>60); Glucose 85 mg/dL (74-106); Magnesium 2.3 mg/dL (1.6-2.6); Potassium 4.4 mmol/L (3.5-5.1); Protein, Total 7.4 g/dL (6.4-8.2); Sodium Level 134 mmol/L (136-145)
[2023-09-23 13:15] LABS: Osmolality, Serum 278 mOsm/KG (280-301)
== END | disposition home or self-care (01) ==
LOC: MTLAB 09:12
PROVIDERS: PCP Family Medicine; Referring Provider Family Medicine; Visit Provider Family Medicine
DX: E87.6 Hypokalemia (principal); M79.89 Other specified soft tissue disorders
CPT/HCPCS: 36415; 80053; 83735; 83930; 85025

== ENCOUNTER → 2023-09-25 | Outpatient (CLI) | payer MEDICARE, MEDICAID, SELFPAY ==
[2023-09-25 12:08] LABS: Absolute Lymphocyte Count 1.49 X10^3/uL (0.83-4.51); Absolute Neutrophil Count 4.8 X10^3/uL (2.0-7.7); Basophil# 0.08 X10^3/uL; Basophil% 1.1 % (0-1); Eosinophil# 0.15 X10^3/uL; Hematocrit 38.7 % (37-47); Hemoglobin 12.4 g/dL (12.0-15.0); Lymphocyte # 1.49 X10^3/ul (0.83-4.51); Lymphocyte % 20.3 % (19-41); Mean Corpuscular Hgb 30.2 pg (27.0-32.0); Mean Corpuscular Volume 94.4 fL (81-99); Monocyte# 0.79 X10^3/uL; Monocyte% 10.7 % (0-10); NRBC Flagged by Analyzer 0 % (0-5); Neutrophil % 65.4 % (47-70); Platelet Count 284 K/mm3 (150-450); RBC Distribution Width SD 48.4 fl (35.1-43.9); White Blood Count 7.4 K/mm3 (4.4-11.0)
[2023-09-25 13:04] LABS: Anion Gap 7 (5-15); BUN 15 mg/dL (7-18); BUN/Creat Ratio 17.4 RATIO (10-20); Calcium,Total 9.6 mg/dL (8.5-10.1); Chloride 98 mmol/L (98-107); Creatinine, Serum 0.86 mg/dL (0.55-1.02); EST Glomerular Filtration Rate 70 mL/min (>60); Est Glom Filt Rate - Afr Amer 85 mL/min (>60); Glucose 96 mg/dL (74-106); Magnesium 2.6 mg/dL (1.6-2.6); Potassium 4.2 mmol/L (3.5-5.1); Sodium Level 135 mmol/L (136-145); T4 Free Direct 1.19 ng/dL (0.76-1.46); Thyroid Stim Hormone (TSH) 0.146 uIU/mL (0.358-3.740)
[2023-09-25 13:54] LABS: Hemoglobin A1c 5.4 % (3.8-5.6)
[2023-09-25 14:25] LABS: Osmolality, Serum 285 mOsm/KG (280-301)
== END | disposition home or self-care (01) ==
LOC: MTLAB 09:20
PROVIDERS: PCP Family Medicine; Referring Provider Family Medicine; Visit Provider Family Medicine
DX: R53.83 Other fatigue (principal); M79.89 Other specified soft tissue disorders; E87.6 Hypokalemia
CPT/HCPCS: 36415; 80048; 83036; 83735; 83930; 84439; 84443; 85025

== ENCOUNTER 2023-09-30 15:24 | Inpatient (IN) | payer MEDICARE, MEDICAID, SELFPAY ==
[2023-09-30] VITALS (18 sets, daily range): BP systolic 71–178; BP diastolic 43–111; PULSE 64–100; RESP 16–22; TEMP 35.7–37.2; O2SAT 89–100; BMI 37.7; BMI 47.3
--- NOTE | 2023-09-30 16:53 | CT_ITS ---
We are attempting to reach an attending provider to discuss findings. An addendum with communication details will be sent when the communication is complete. EXAM: CT ABDOMEN AND PELVIS WITH INTRAVENOUS CONTRAST CLINICAL INDICATION: abdominal pain TECHNIQUE: Helically acquired images were obtained of the abdomen and pelvis with intravenous contrast. CTDIvol = ( 17.07 ) mGy, DLP = ( 1270.48 ) mGycm This CT exam was performed using one or more of the following dose reduction techniques: automated exposure control, adjustment of the mA and/or kV according to patient size, and/or use of iterative reconstruction technique. CONTRAST: IV 75mL Isovue-370 COMPARISON: No relevant prior studies available. FINDINGS: LOWER THORAX: Unremarkable. Lung bases are clear. No cardiomegaly. No significant pericardial effusion. ABDOMEN: LIVER: Extensive portal venous gas. GALLBLADDER AND BILE DUCTS: Unremarkable. No calcified gallstones. No gallbladder distention or wall edema. No intra- or extrahepatic biliary ductal dilation. PANCREAS: Unremarkable. No focal cystic or solid mass. SPLEEN: Unremarkable. Normal size without focal cystic or solid mass. ADRENALS: Unremarkable. No nodules. KIDNEYS AND URETERS: Areas of bilateral renal scarring but no hydronephrosis. Small cyst of the right kidney. STOMACH AND BOWEL: Pneumatosis involving a loop of small bowel in the central abdomen. No stomach or bowel distention. No focal inflammatory change. PELVIS: APPENDIX: No evidence of acute appendicitis. BLADDER: Unremarkable. REPRODUCTIVE: Unremarkable as visualized. No mass. ABDOMEN and PELVIS: INTRAPERITONEAL SPACE: Pneumoperitoneum with with extensive gas is identified adjacent to central small bowel loops compatible with bowel perforation. No ascites or other fluid collection. BONES/JOINTS: Unremarkable. No suspicious lytic or blastic abnormality. SOFT TISSUES: Unremarkable. No discrete abdominal or pelvic wall hernia. VASCULATURE: Dense atherosclerotic calcifications of the nonaneurysmal aorta and iliac arteries and similar major branch vessels. LYMPH NODES: Unremarkable. No enlarged lymph nodes. OTHER FINDINGS: Moderate anterior wedge deformity of the L2 vertebral body status post vertebroplasty with cement extending into the L1-2 disc space and into the anterior endplate of the L1 vertebral body. CT/Abdomen/Pelvis W IV Cont ONLY IMPRESSION: Suspect small bowel ischemia complicated by local containing perforation at the central abdomen. Electronically Signed: Vince Guzman MD at 18:18 EDT ,
--- NOTE | 2023-09-30 16:55 | ED.VIS.GI ---
HPI HPI - GI History of Present Illness Chief Complaint: Nausea/Vomiting Narrative Narrative: 63-year-old female presents with nausea, vomiting, and diarrhea with abdominal pain that began after eating breakfast at 930 this morning. This was approximately 7-1/2 hours ago. Past abdominal surgery does include cholecystectomy remotely. She states that she began having pain afterwards. She had a few normal bowel movements and had an episode of diarrhea. She has been having episodes of nausea and vomiting since, stating that she has vomited multiple times throughout the day. She describes periumbilical abdominal pain diffusely, but denies any increase in abdominal bloating. [facility] Medical History Trigger finger, left ring finger Trigger finger, right ring finger Right carpal tunnel syndrome Bilateral carpal tunnel syndrome Hypothyroidism Anxiety and depression High cholesterol Hypertension Home Medications ?Medication ?Instructions ?Recorded ?Last Taken ?Type furosemide 40 mg tablet (Lasix) 40 mg PO DAILY #5 tabs 10/16/22 Unknown Rx buspirone 30 mg tablet 30 mg PO BID 04/28/23 Unknown History levothyroxine 125 mcg tablet 125 mcg PO QDAY 04/28/23 Unknown History losartan 100 1 tab PO QDAY 04/28/23 Unknown History mg-hydrochlorothiazide 12.5 mg tablet meloxicam 15 mg tablet 15 mg PO QDAY 04/28/23 Unknown History potassium citrate 99 mg capsule mg PO 04/28/23 Unknown History quetiapine 200 mg tablet 200 mg PO QHS 04/28/23 Unknown History tizanidine 4 mg tablet 4 mg PO TID 04/28/23 Unknown History trazodone 100 mg tablet 100 mg PO QHS 04/28/23 Unknown History venlafaxine 150 mg 150 mg PO QDAY 04/28/23 Unknown History capsule,extended release 24 hr verapamil 240 mg tablet,extended 240 mg PO QDAY 04/28/23 Unknown History release pregabalin 50 mg capsule mg PO 06/26/23 Unknown History Allergy/AdvReac Type Severity Reaction Status Date / Time cefaclor (From Ceclor) Allergy Anaphylaxis Verified 09/30/23 17:49 codeine Allergy Anaphylaxis Verified 09/30/23 17:49 paroxetine (From Paxil) Allergy Anaphylaxis Verified 09/30/23 17:49 Penicillins Allergy Anaphylaxis Verified 09/30/23 17:49 Sulfa (Sulfonamide Allergy Anaphylaxis Verified 09/30/23 17:49 Antibiotics) Surgical History S/P TKR (total knee replacement) History of shoulder replacement History of hysterectomy History of cholecystectomy Hx of appendectomy Social History household members: none Smoking Status: Current every day smoker tobacco type: cigarettes and e-cigarettes alcohol intake: never ROS ROS ED ROS Narrative Constitutional: No fever, no chills. HEENT: No sore throat. No neck pain. No loss of vision. No rhinorrhea. Cardiovascular: No chest pain. No palpitations. No pedal edema. Respiratory: No cough, no shortness of breath. Abdominal: Positive diffuse, periumbilical abdominal pain. Multiple episodes of nausea and vomiting, nonbloody. 1 episode of diarrhea. Genitourinary: No dysuria. No hematuria. Musculoskeletal: No myalgias. No arthralgias. Neurologic: No headaches. No dizziness. No lightheadedness. Skin: No rash. No change in color. Psychiatric: No depression. No anxiety. EXAM Physical Exam Narrative Exam Narrative: Afebrile. Vital signs noted. HEENT: Normocephalic. Atraumatic. PERRL, EOMI. Neck soft and supple. No point tenderness or step off. Cardiovascular: Regular rate and rhythm. No murmurs, rubs, or gallops appreciated. Respiratory: No tachypnea. Lungs clear to auscultation bilaterally. Gastrointestinal: Abdomen soft, diffuse tenderness to palpation with normoactive bowel sounds. No rebound or guarding. Neurological: Awake. Alert. Nonfocal, nonlateralizing. Skin: No rash. Normal color. No pallor. Musculoskeletal: No pedal edema. Full range of motion extremities. Const Vital Signs: 09/30/23 15:26 09/30/23 17:24 09/30/23 17:56 Temperature 96.3 F L Temperature Source Temporal Pulse Rate 81 97 Respiratory Rate 20 H 16 Blood Pressure 112/77 141/60 H Blood Pressure Mean 88 87 Pulse Ox 96 92 89 Oxygen Delivery Method Room Air Room Air Room Air Oxygen Flow Rate (L/min) 09/30/23 17:56 09/30/23 18:54 Temperature 97.8 F Temperature Source Pulse Rate 64 Respiratory Rate 16 Blood Pressure 136/78 H Blood Pressure Mean 97 Pulse Ox 94 99 Oxygen Delivery Method Nasal Cannula Oxygen Flow Rate (L/min) 2 MDM MDM MDM Narrative Medical decision making narrative: Differential diagnosis includes but not limited to pancreatitis versus gastroenteritis versus bowel obstruction versus colitis. Comprehensive workup was pursued. She has anaphylaxis to codeine but states she takes oral Vicodin after surgery. She will be dosed with fentanyl and ondansetron and bolused normal saline 1 L intravenously. I do feel that CT imaging is warranted to rule out obstruction or other pathology. I reviewed her laboratory work and she has normal white count of 10.8, hemoglobin 13.1 with hematocrit 38.5, platelet count normal at 293. Sodium is low at 131 with chloride 92 and potassium slightly low at 3.4 which may be secondary to her vomiting all day. She has a BUN of 22 and a creatinine of 1.61. Glucose elevated at 136 with a normal anion gap of 11. Lipase is normal at 28. I received a call from the radiologist regarding the CT of the abdomen and pelvis with IV contrast. There is evidence of small bowel ischemia with perforation. There is evidence of air in the portal venous system. Patient was discussed with Dr. Stephenson with general surgery. I did add a lactic acid, and also obtained an EKG which I interpreted independently as normal sinus rhythm at 98 bpm without ectopy or acute ST changes. No STEMI. She had been feeling mildly improved after a dose of narcotic pain medication but still had a tender abdomen. She was started on ciprofloxacin and Flagyl as well preoperatively as she has anaphylactic reactions to penicillin, cefaclor, and sulfa antibiotics. Disposition is admit/to the OR in stable condition. History & Record Review Discussion w/independent historian: Patient Lab Data Attestation: I reviewed the patient's lab results. Labs: Laboratory Results - last 24 hr 09/30/23 16:40 WBC 10.8 RBC 4.19 L Hgb 13.1 Hct 38.5 MCV 91.9 MCH 31.3 MCHC 34.0 RDW Std Deviation 46.3 H RDW Coeff of Vicki 13.5 Plt Count 293 MPV 9.8 Immature Gran % (Auto) 0.400 Neut % (Auto) 91.2 H Lymph % (Auto) 4.7 L [place] % (Auto) 3.3 Eos % (Auto) 0.1 Baso % (Auto) 0.3 Absolute Neuts (auto) 9.8 H Absolute Lymphs (auto) 0.50 L Nucleated RBC % 0 Sodium 131 L Potassium 3.4 L Chloride 92 L Carbon Dioxide 28.0 Anion Gap 11 BUN 22 H Creatinine 1.61 H Est GFR (MDRD) Af Amer 41 L Est GFR (MDRD) Non-Af 34 L BUN/Creatinine Ratio 13.7 Glucose 136 H Calcium 9.5 Total Bilirubin 0.40 AST 15 ALT 26 Alkaline Phosphatase 87 Total Protein 7.5 Albumin 3.7 Globulin 3.8 Albumin/Globulin Ratio 1.0 Lipase 28 Radiography Diagnostic Testing: Clinical Impression(s) from Imaging Studies Abdomen/Pelvis CT 09/30/23 16:53 IMPRESSION: Suspect small bowel ischemia complicated by local containing perforation at the central abdomen. Electronically Signed: Vince Guzman MD at 18:18 EDT , ADDENDUM: 09/30/23 1828 IMPRESSION: Suspect small bowel ischemia complicated by local containing perforation at the central abdomen. N.B. : The above Results were Read Back by Vince Guzman MD to Dirk Banda MD, and understanding confirmed on 09/30/2023 18:21:06 (ET). Electronically Signed: Vince Guzman MD at 18:18 EDT , ADDENDUM: 09/30/23 1830 IMPRESSION: undefined Management Discussion w/another healthcare provider: [employer] Furn[employer] Supervisor (Dr. Stephenson) and Radiologist (Dr. Guzman) Discharge Plan Dx/Rx/DC Orders Clinical Impression: Small bowel ischemia, Small bowel perforation Disposition Disposition: Acute Care Hospital [facility] Discharge Date/Time: 09/30/23 18:55
[2023-09-30 16:56] LABS: Absolute Neutrophil Count 9.8 X10^3/uL (2.0-7.7); Basophil# 0.03 X10^3/uL; Basophil% 0.3 % (0-1); Eosinophil# 0.01 X10^3/uL; Eosinophils% 0.1 % (0-5); Hematocrit 38.5 % (37-47); Hemoglobin 13.1 g/dL (12.0-15.0); Lymphocyte % 4.7 % (19-41); Mean Corpuscular Hgb 31.3 pg (27.0-32.0); Mean Corpuscular Volume 91.9 fL (81-99); Mean Platelet Vol. 9.8 fl (6.2-12.0); Monocyte# 0.36 X10^3/uL; Monocyte% 3.3 % (0-10); NRBC Flagged by Analyzer 0 % (0-5); Neutrophil # 9.81 X10^3/uL (2.7-7.7); Neutrophil % 91.2 % (47-70); POSITIVE DIFFERENTIAL YES; Platelet Count 293 K/mm3 (150-450); RBC Distribution Width CV 13.5 % (11.6-14.6); RBC Distribution Width SD 46.3 fl (35.1-43.9); Red Blood Count 4.19 M/mm3 (4.2-5.4); White Blood Count 10.8 K/mm3 (4.4-11.0)
[2023-09-30] MEDS: 0.9% Normal Saline (1000mL) 1,000 ML 999 ML IV (17:01)
[2023-09-30] MEDS: fentaNYL 100 MCG/2 ML Ampul 50 MCG IV (17:01)
[2023-09-30] MEDS: Ondansetron 4 MG/2 ML Vial IV (17:01)
[2023-09-30 17:05] LABS: AST(SGOT) 15 U/L (15-37); Alanine Aminotransfer ALT/SGPT 26 U/L (13-56); Albumin, Serum 3.7 g/dL (3.2-5.0); Alkaline Phosphatase 87 U/L (45-117); Anion Gap 11 (5-15); BUN 22 mg/dL (7-18); BUN/Creat Ratio 13.7 RATIO (10-20); Calcium,Total 9.5 mg/dL (8.5-10.1); Chloride 92 mmol/L (98-107); Creatinine, Serum 1.61 mg/dL (0.55-1.02); EST Glomerular Filtration Rate 34 mL/min (>60); Est Glom Filt Rate - Afr Amer 41 mL/min (>60); Globulin 3.8 g/dL (2.2-4.2); Glucose 136 mg/dL (74-106); Potassium 3.4 mmol/L (3.5-5.1); Protein, Total 7.5 g/dL (6.4-8.2); Sodium Level 131 mmol/L (136-145)
[2023-09-30 18:13] LABS: Lipase 28 U/L (13-75)
--- NOTE | 2023-09-30 18:34 | EKG12_ITS ---
Test Reason : PRE-OP Blood Pressure : / mmHG Vent. Rate : 098 BPM Atrial Rate : 098 BPM P-R Int : 170 ms QRS Dur : 072 ms QT Int : 322 ms P-R-T Axes : 050 006 077 degrees QTc Int : 411 ms Normal sinus rhythm Nonspecific ST and T wave abnormality Abnormal ECG Confirmed by RADHA CAMARA, JULIUS ([id number]), editorial writer ARUN DUEÑAS ([id number]) on 10/03/2023 6:37:33 AM Referred By: Calvin Stephenson Confirmed By:BENNETT GARCIA MD
--- NOTE | 2023-09-30 19:04 | PCM.PRE.AN2 ---
ASA Classification* ASA Classification ASA Classification: 3 and E Assessment & Plan Anesthesia* Anesthesia Assessment Anesthesia Assessment: Discussed sedation and/or anesthesia options, risks, benefits, and alternatives with patient/parents/legal guardian/POA. Questions invited. The patient/parents/legal guardian/POA seems to understand and agrees to proceed with anesthesia plan. Reviewed the physical assessment, medical history, allergy history and patient home medications list prior to surgery/procedure/anesthetic and documented any changes. Performed airway and anesthesia risk assessments. Anesthesia Type Anesthesia Type: General Anesthesia Focused Assessment* Temperature: 98.9 F Pulse Rate: 78 Blood Pressure: 178/76 Respiratory Rate: 16 Pulse Ox: 98 Airway Assessment Mouth opens: >3 cm Mallampati Score: II Focused Labs Anesthesia Preop lab: CBC WBC 10.8 K/mm3 (4.4-11.0) 09/30/23 16:40 RBC 4.19 M/mm3 (4.2-5.4) L 09/30/23 16:40 Hgb 13.1 g/dL (12.0-15.0) 09/30/23 16:40 Hct 38.5 % (37-47) 09/30/23 16:40 Plt Count 293 K/mm3 (150-450) 09/30/23 16:40 CHEMISTRY Potassium 3.4 mmol/L (3.5-5.1) L 09/30/23 16:40 Sodium 131 mmol/L (136-145) L 09/30/23 16:40 Magnesium 2.6 mg/dL (1.6-2.6) 09/25/23 09:30 BUN 22 mg/dL (7-18) H 09/30/23 16:40 Creatinine 1.61 mg/dL (0.55-1.02) H 09/30/23 16:40 Glucose 136 mg/dL (74-106) H 09/30/23 16:40 TSH 0.146 uIU/mL (0.358-3.740) L 09/25/23 09:30 COAG Pre-Assessment Diagnosis/Proposed Procedure Planned Operative Procedure(s): Exploratory Laparotomy, repair perforated bowel Anesthesia History 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 When Was Last Pacemaker Check QUESTION #4 FULL TEXT: You/Your Family Experience fever (hyperthermia) with Anesthesia Last Oral Intake Last Oral intake: Last Oral Intake NPO since Meds taken in AM with sips of water? 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 - traveling missionary: PONV - traveling missionary Female HX of Motion Sickness HX of N/V After Surgery Non-Smoker Duration of Surgery greater than 60 minutes Number of Risk Factors PONV Score Height & Weight Height & Weight: Anesthesia: Height & Weight Height 5 ft 5.5 in 09/30/23 15:26 Respiratory Assessment Respiratory Assessment - traveling missionary: Respiratory Tract Infection Hx - traveling missionary Hx Respiratory Tract Infection STOP Sleep Apnea STOP Sleep Apnea - traveling missionary: STOP Sleep Apnea - traveling missionary Hx Hypertension Yes 06/18/23 16:31 Hx Sleep Apnea CPAP BIPAP Do you snore loudly (louder than talking or can be heard Do you often feel tired/ fatigued/ sleepy during daytime? Has anyone observed you stop breathing during sleep? STOP Results QUESTION #5 FULL TEXT : Do you snore loudly (louder than talking or can be heard through closed doors)? 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 Specify any problems Hx of Preganancy in last 3 Months Nurse Filling Out Transfusion & Questions: Date: Time: Patient unable to answer at this time (ie. confused, unrespo /Reproduction History /Reproductive History - traveling missionary: /Reproductive Hx- traveling missionary Hx Now Gestational Age (in weeks): EDC: Hx Hx Para Hx Section SAB Active Medications Active Medications: Current Medications Generic Name Dose Route Start Last Admin Trade Name Freq PRN Reason Stop Dose Admin Ciprofloxacin 400 mg in 200 mls @ 200 mls/hr 09/30/23 18:35 Cipro IV 09/30/23 19:34 X1 ONE Metronidazole 500 mg in 100 mls @ 100 mls/hr 09/30/23 18:35 Flagyl IV 09/30/23 19:34 X1 ONE Lactated Ringer's 1,000 mls @ 125 mls/hr 09/30/23 18:45 IV .Q8H ROHITH PFSH Medical History Trigger finger, left ring finger Trigger finger, right ring finger Right carpal tunnel syndrome Bilateral carpal tunnel syndrome Hypothyroidism Anxiety and depression High cholesterol Hypertension Home Medications ?Medication ?Instructions ?Recorded ?Last Taken ?Type furosemide 40 mg tablet (Lasix) 40 mg PO DAILY #5 tabs 10/16/22 Unknown Rx buspirone 30 mg tablet 30 mg PO BID 04/28/23 Unknown History levothyroxine 125 mcg tablet 125 mcg PO QDAY 04/28/23 Unknown History losartan 100 1 tab PO QDAY 04/28/23 Unknown History mg-hydrochlorothiazide 12.5 mg tablet meloxicam 15 mg tablet 15 mg PO QDAY 04/28/23 Unknown History potassium citrate 99 mg capsule mg PO 04/28/23 Unknown History quetiapine 200 mg tablet 200 mg PO QHS 04/28/23 Unknown History tizanidine 4 mg tablet 4 mg PO TID 04/28/23 Unknown History trazodone 100 mg tablet 100 mg PO QHS 04/28/23 Unknown History venlafaxine 150 mg 150 mg PO QDAY 04/28/23 Unknown History capsule,extended release 24 hr verapamil 240 mg tablet,extended 240 mg PO QDAY 04/28/23 Unknown History release pregabalin 50 mg capsule mg PO 06/26/23 Unknown History Allergy/AdvReac Type Severity Reaction Status Date / Time cefaclor (From Ceclor) Allergy Anaphylaxis Verified 09/30/23 17:49 codeine Allergy Anaphylaxis Verified 09/30/23 17:49 paroxetine (From Paxil) Allergy Anaphylaxis Verified 09/30/23 17:49 Penicillins Allergy Anaphylaxis Verified 09/30/23 17:49 Sulfa (Sulfonamide Allergy Anaphylaxis Verified 09/30/23 17:49 Antibiotics) Surgical History S/P TKR (total knee replacement) History of shoulder replacement History of hysterectomy History of cholecystectomy Hx of appendectomy Social History household members: none Smoking Status: Current every day smoker tobacco type: cigarettes and e-cigarettes alcohol intake: never Review of Systems (Anesthesia) ROS Narrative System reviewed and no additional complaints, except as documented.
--- NOTE | 2023-09-30 19:05 | HP.PCM.SX_ITS ---
HPI - General HPI Narrative ROSALINDA VALE, is a 63 F who presents with severe abdominal pain that started overnight. She said she had some nausea and vomiting and diarrhea. She denies fevers or chills. [facility] Medical History Trigger finger, left ring finger Trigger finger, right ring finger Right carpal tunnel syndrome Bilateral carpal tunnel syndrome Hypothyroidism Anxiety and depression High cholesterol Hypertension Home Medications ?Medication ?Instructions ?Recorded ?Last Taken ?Type furosemide 40 mg tablet (Lasix) 40 mg PO DAILY #5 tabs 10/16/22 Unknown Rx buspirone 30 mg tablet 30 mg PO BID 04/28/23 Unknown History levothyroxine 125 mcg tablet 125 mcg PO QDAY 04/28/23 Unknown History losartan 100 1 tab PO QDAY 04/28/23 Unknown History mg-hydrochlorothiazide 12.5 mg tablet meloxicam 15 mg tablet 15 mg PO QDAY 04/28/23 Unknown History potassium citrate 99 mg capsule mg PO 04/28/23 Unknown History quetiapine 200 mg tablet 200 mg PO QHS 04/28/23 Unknown History tizanidine 4 mg tablet 4 mg PO TID 04/28/23 Unknown History trazodone 100 mg tablet 100 mg PO QHS 04/28/23 Unknown History venlafaxine 150 mg 150 mg PO QDAY 04/28/23 Unknown History capsule,extended release 24 hr verapamil 240 mg tablet,extended 240 mg PO QDAY 04/28/23 Unknown History release pregabalin 50 mg capsule mg PO 06/26/23 Unknown History Allergy/AdvReac Type Severity Reaction Status Date / Time cefaclor (From Ceclor) Allergy Anaphylaxis Verified 09/30/23 17:49 codeine Allergy Anaphylaxis Verified 09/30/23 17:49 paroxetine (From Paxil) Allergy Anaphylaxis Verified 09/30/23 17:49 Penicillins Allergy Anaphylaxis Verified 09/30/23 17:49 Sulfa (Sulfonamide Allergy Anaphylaxis Verified 09/30/23 17:49 Antibiotics) Surgical History S/P TKR (total knee replacement) History of shoulder replacement History of hysterectomy History of cholecystectomy Hx of appendectomy Social History household members: none Smoking Status: Current every day smoker tobacco type: cigarettes and e- cigarettes alcohol intake: never ROS Constitutional Constitutional: Denies anorexia, chills, fatigue or fever(s) Eyes Eyes: Denies blurry vision ENT HEENT: Denies abnormal hearing Respiratory/Chest Respiratory/Chest: Denies cough or dyspnea Gastrointestinal Gastrointestinal: Reports abdominal pain, diarrhea, nausea and vomiting; Denies constipation Genitourinary Genitourinary: Denies change in urinary stream Musculoskeletal Musculoskeletal: Denies abnormal gait Integumentary Integumentary: Denies new lesions Neurologic Neurologic: Denies abnormal gait Endocrine Endocrinology: Denies flushing Vital Signs Vital Signs Vital Signs: 09/30/23 15:26 09/30/23 17:24 09/30/23 17:56 Temperature 96.3 F L Temperature Source Temporal Pulse Rate 81 97 Respiratory Rate 20 H 16 Blood Pressure 112/77 141/60 H Blood Pressure Mean 88 87 Pulse Ox 96 92 89 Oxygen Delivery Method Room Air Room Air Room Air Oxygen Flow Rate (L/min) 09/30/23 17:56 09/30/23 18:54 09/30/23 19:02 Temperature 97.8 F 98.9 F Temperature Source Temporal Pulse Rate 64 78 Respiratory Rate 16 16 Blood Pressure 136/78 H 178/76 H Blood Pressure Mean 97 110 Pulse Ox 94 99 98 Oxygen Delivery Method Nasal Cannula Room Air Oxygen Flow Rate (L/min) 2 Physical Exam Const oriented x3 and no apparent distress Resp normal respiratory effort GI soft to palpation Palpation: tender Extremity normal to inspection Results Lab / Micro Data 09/30/23 16:40 09/30/23 16:40 Labs: Laboratory Results - last 24 hr 09/30/23 16:40: WBC 10.8, RBC 4.19 L, Hgb 13.1, Hct 38.5, MCV 91.9, MCH 31.3, MCHC 34.0, RDW Std Deviation 46.3 H, RDW Coeff of Vicki 13.5, Plt Count 293, MPV 9.8, Immature Gran % (Auto) 0.400, Neut % (Auto) 91.2 H, Lymph % (Auto) 4.7 L, [place] % (Auto) 3.3, Eos % (Auto) 0.1, Baso % (Auto) 0.3, Absolute Neuts (auto) 9.8 H, Absolute Lymphs (auto) 0.50 L, Nucleated RBC % 0, Sodium 131 L, Potassium 3.4 L, Chloride 92 L, Carbon Dioxide 28.0, Anion Gap 11, BUN 22 H, Creatinine 1.61 H, Est GFR (MDRD) Af Amer 41 L, Est GFR (MDRD) Non-Af 34 L, BUN/Creatinine Ratio 13.7, Glucose 136 H, Calcium 9.5, Total Bilirubin 0.40, AST 15, ALT 26, Alkaline Phosphatase 87, Total Protein 7.5, Albumin 3.7, Globulin 3.8, Albumin/Globulin Ratio 1.0, Lipase 28 Imaging Radiology Impression Abdomen/Pelvis CT 09/30/23 16:53 IMPRESSION: Suspect small bowel ischemia complicated by local containing perforation at the central abdomen. Electronically Signed: Vince Guzman MD at 18:18 EDT , ADDENDUM: 09/30/23 1828 IMPRESSION: Suspect small bowel ischemia complicated by local containing perforation at the central abdomen. N.B. : The above Results were Read Back by Vince Guzman MD to Dirk Banda MD, and understanding confirmed on 09/30/2023 18:21:06 (ET). Electronically Signed: Vince Guzman MD at 18:18 EDT , ADDENDUM: 09/30/23 1830 IMPRESSION: undefined Assessment & Plan Assessment/Plan (1) Small bowel perforation: PLAN: Patient presented with abdominal pain and CT scan revealed small bowel ischemia with perforation and portal venous gas. Still unsure as to the etiology of the ischemia. I discussed this with her and I discussed surgery. On CT the patient has portal venous gas and pneumatosis of small bowel with perforation. I discussed performing laparotomy with small bowel resection. I did discuss possibility of having to resect colon. I discussed the risk of surgery including but not limited to bleeding, infection, injury to other organs. Patient understands the risks and is willing to proceed. She will receive antibiotics in the emergency room. Calvin Stephenson MD Pager: [facility] [address] [place] [address], [address] [place] [address] Office:
--- NOTE | 2023-09-30 19:20 | COL._PTH ---
PATIENT: ROSALINDA VALE LOC: [facility] U#:[id number] AGE/SX: 63/F ROOM: ICU02 RE09/30/[address]: Dr. Calvin Stephenson MD : 1960 BED: 1 DIS: 10/01/2023 SPEC #: [id number] RECD: 10/01/23 09:22 STATUS: JH REQ #: [id number] DEBBIE: 09/30/23 19:[address]: Calvin Stephenson DEPT: SURGICAL PATHOLOGY RECD BY: Shanthi Jacobs ENTERED: 10/01/23 11:45 SP TYPE: COLON OTHR DR: MD Dr. Erik Fajardo MD Chalon Fike, MD Dr. Derek Brown, DO Dr. David P Myers, MD Dr. Edward Matheis, MD Dr. Gautam Baskaran, MD Dr. Yordanos Habtegebriel, MD Dr. Hemant Dand, MD Dr. Jose Ochoa, MD Dr. Kimber Foust, MD Dr. Lamia Aljundi, MD Dr. Pritam Ghosh, MD Dr. Pavan Irukulla, MD Dr. Saad Farooqi, MD Dr. Vikram Anand, MD Dr. William Haden, MD Tissues: Colon, NOS Procedures: Surgery Specimen Level HEADER OPERATION: Laparotomy with right hemicolectomy PRE-OP DIAGNOSIS: Small bowel perforation TISSUE SUBMITTED: Multiple bowel segments MICROSCOPIC DIAGNOSIS Multiple bowel segments, laparotomy with hemicolectomy and segmental small bowel resection: Segments of small and large bowel with extensive area of ischemic changes and hemorrhagic infarction involving mucosa and submucosa. Small bowel and colonic donut, no pathologic diagnosis. CHIRGA/ 10/03/2023 COMMENT Case has been reviewed in consultation with Dr. Bae who concurs with the above diagnosis. IDC:NABOR MICROSCOPIC DESCRIPTION Slides are reviewed. GROSS DESCRIPTION Received in fixative is one container labeled with the patient's name and designated Multiple bowel segments. The specimen consists of four segments of bowel. The largest segment of bowel consists of a large segment of small bowel and measures 87.0cm in length. Both resection margins are stapled. Attached mesenteric tissue measures up to 3.0cm in width. Serosal surface is pink, congested and dusky. Mucosa is markedly congested and hemorrhagic. Lumen contains hemorrhagic material. No mucosal lesion is identified. At one margin additional small segment of bowel is also noted with no connection with the lumen of the small bowel measuring 3.0cm in length. Second segment of bowel consists of segments of small bowel with [id number] anastomosis with a segment of cecum including ileocecal valve and small intestine and 8.0cm in length. The specimen is previously partially opened. Anastomosis appears to be intact. Cecal mucosa is markedly congested. Third segment of the bowel measures 10.0cm in length. A defect is noted in the center. Both resection margins are stapled. No mucosal lesion is identified. Focal area of mucosa is congested. Fourth segment of bowel appears to consist of donut shaped piece of tissue measuring 4.0 x 2.5 x 1.0cm. Sections will be submitted after additional fixation. . 10/01/2023 Sections of pericolonic adipose tissue and mesenteric tissue do not reveal any obvious enlarged lymph nodes. Resource Room Special Education Teacher sections are submitted in eleven cassettes as follows: 1-4- largest segment of bowel (1-resection margins, 2&3- small bowel, 4- mesenteric tissue and smaller segment of bowel adjacent to the resection margin and mesenteric tissue), 5-8- second largest piece of bowel with anastomosis (5&6- bowel segment, 7- ileocecal valve, 8- pericolonic adipose tissue), 9-10- third largest bowel tissue, 11- the smallest donut shape piece of tissue. . 10/02/2023 TC: 5 CPT:03279
[2023-09-30] MEDS: Ciprofloxacin 400 MG/200 ML BAG 200 MG IV (19:35)
[2023-09-30 19:38] LABS: Lactic Acid 1.9 mmol/L (0.4-1.9)
[2023-09-30] MEDS: metroNIDAZOLE 500 MG/100 ML BAG 100 MG IV (19:51)
--- NOTE | 2023-09-30 21:35 | PCM.OPRPT ---
Report of Operation Date of Procedure: 09/30/23 Pre-Operative Diagnosis: Small bowel ischemia with perforation Post-Operative Diagnosis: Small bowel and right colon ischemia Surgery/Procedure Performed:: Laparotomy with resection of distal small bowel and right colon Type of Anesthesia: General/Regional Specimen's removed: Several segments of small bowel and colon Estimated Blood Loss (mL): 100 Description of Procedure: Patient is brought back to the operating room and general anesthesia was induced. Munoz catheter was placed. Abdomen was prepped and draped in usual sterile fashion. Midline incision was made from the umbilicus up to the subxiphoid space and deepened to the fascia which was elevated and sharply incised. Fascia was then opened superiorly and inferiorly using electrocautery. Wound protector was placed. The bowel was delivered through the incision. There was clear necrosis of the distal small bowel and several segments. The cecum appeared normal externally and the proximal small bowel appeared normal. The proximal area of necrosis was divided using a SERGEI stapler. Enseal was used to come across the mesentery until the ileocecal valve was reached. Just distal to the ileocecal valve the stapler was used to staple across the cecum. When we attempted anastomosis it was apparent that the mucosa of the cecum was necrotic. Next a lot of work was taken to mobilize the right colon and mobilized the hepatic flexure. Once this was mobilized there was some bleeding posteriorly. Titanium clips were used to stop the bleeding. Next the colon was inspected by opening the colon wall until we reached healthy colon that was not necrotic this was in the proximal transverse colon. Where the bowel was healthy it was divided using an Endo SERGEI stapler and the LigaSure impact was used to take down all the mesentery and removed the specimens. Next an anastomosis was performed between the small bowel and the transverse colon and a [id number] functional end-to-end fashion with SERGEI stapler. The staple line was inspected as well as the mucosa and they were both appeared healthy with good bleeding. Next a TX 60 was used to close the enterostomy. A 3-0 silk was used to create a crotch stitch. The abdomen was copiously irrigated and suctioned dry and was inspected once more and found to be hemostatic. The wound protector was removed and gown and gloves were changed. The fascia was closed from the top and bottom meeting in the middle with #1 PDS suture in a running fashion. Subcutaneous tissue was irrigated and then the skin was closed with skin jj. Patient was awoken and taken to PACU in stable condition and tolerated the procedure well. She will be closely observed postoperatively for further signs of ischemia. Admit VTE Documentation VTE Mechan Device Prophylaxis: SCD's
--- NOTE | 2023-09-30 21:40 | PCM.POST.ANE ---
Anesthesia: Postop Eval I Current Vital Signs Temperature: 98.3 F Pulse Rate: 100 Blood Pressure: 119/89 Respiratory Rate: 17 Pulse Ox: 97 Assessment Airway patent: Yes Spontaneous unlabored respirations: Yes nausea: No Vomiting: No Anesthesia Complication: No Fluid Hydration Crystalloid volume administer (ml): 1,200 Total IV fluid infused: 1,200 Progress Note Anesthesia document: Postop Eval 1 completed: Yes
--- NOTE | 2023-09-30 21:41 | POSTOPAN2_ITS ---
Anesthesia Postop Eval I Sum Postop Eval Completion status Anesthesia document: Postop Eval 1 completed: Yes Anesthesia Postop Eval I Summary Anesthesia Postop Eval I Summary: Anesthesia Postop Eval I: Assessment Summary Airway patent Yes 09/30/23 21:41 SUPERVISOR CEMETERY WORKERS.JCOTE Spontaneous unlabored Yes 09/30/23 21:41 SUPERVISOR CEMETERY WORKERS.JCOTE respirations Mental status nausea No 09/30/23 21:41 SUPERVISOR CEMETERY WORKERS.JCOTE Vomiting No 09/30/23 21:41 SUPERVISOR CEMETERY WORKERS.JCOTE Anesthesia Postop Eval I: Fluid Summary Crystalloid volume administer 1,200 09/30/23 21:41 SUPERVISOR CEMETERY WORKERS.JCOTE (ml) Colloids volume administered ( ml) Blood Product volume administered (ml) Total IV fluid infused 1,200 09/30/23 21:41 SUPERVISOR CEMETERY WORKERS.JCOTE Anesthesia Postop Eval I: Summary Notes Anesthesia Complication No 09/30/23 21:41 SUPERVISOR CEMETERY WORKERS.JCOTE Anesthesia Complication Comment: Post-operative progress note Anesthesia: Postop Eval II Evaluation Mental status: Awake Pain Level: 2 nausea: No Vomiting: No
--- NOTE | 2023-09-30 21:41 | PCM.POSTANE2 ---
Anesthesia Postop Eval I Sum Postop Eval Completion status Anesthesia document: Postop Eval 1 completed: Yes Anesthesia Postop Eval I Summary Anesthesia Postop Eval I Summary: Anesthesia Postop Eval I: Assessment Summary Airway patent Yes 09/30/23 21:41 IT SECURITY SPECIALIST.JCOTE Spontaneous unlabored Yes 09/30/23 21:41 IT SECURITY SPECIALIST.JCOTE respirations Mental status nausea No 09/30/23 21:41 IT SECURITY SPECIALIST.JCOTE Vomiting No 09/30/23 21:41 IT SECURITY SPECIALIST.JCOTE Anesthesia Postop Eval I: Fluid Summary Crystalloid volume administer 1,200 09/30/23 21:41 IT SECURITY SPECIALIST.JCOTE (ml) Colloids volume administered ( ml) Blood Product volume administered (ml) Total IV fluid infused 1,200 09/30/23 21:41 IT SECURITY SPECIALIST.JCOTE Anesthesia Postop Eval I: Summary Notes Anesthesia Complication No 09/30/23 21:41 IT SECURITY SPECIALIST.JCOTE Anesthesia Complication Comment: Post-operative progress note Anesthesia: Postop Eval II Evaluation Mental status: Awake Pain Level: 2 nausea: No Vomiting: No
--- NOTE | 2023-09-30 23:50 | NURSING ---
Verification of home meds unsuccessful. Pt drowsy after procedure. Pt and family unable to accurately recall home meds. This RN asked if family can bring a list or home meds to hospital for verification, pt sister, Cris, stated she will bring them in the morning.
[2023-10-01] VITALS (32 sets, daily range): BP systolic 65–163; BP diastolic 36–100; PULSE 97–118; RESP 20–31; TEMP 36.1–37.6; O2SAT 91–100
[2023-10-01] MEDS: 0.9% Normal Saline (1000mL) 1,000 ML 100 ML IV ×2 (00:17→09:01)
[2023-10-01] MEDS: Ketorolac 15 MG/ML Vial IV ×2 (02:08→10:24)
--- NOTE | 2023-10-01 05:12 | EKG12_ITS ---
Test Reason : POST-OP Blood Pressure : / mmHG Vent. Rate : 110 BPM Atrial Rate : 110 BPM P-R Int : 162 ms QRS Dur : 078 ms QT Int : 344 ms P-R-T Axes : 033 -05 020 degrees QTc Int : 465 ms Sinus tachycardia Nonspecific ST and T wave abnormality Abnormal ECG When compared with ECG of 30-SEP-2023 18:57, MANUAL COMPARISON REQUIRED, DATA IS UNCONFIRMED Confirmed by RADHA CAMARA, JULIUS ([id number]), editor sound ARUN DUEÑAS ([id number]) on 10/03/2023 7:19:15 AM Referred By: Calvin Stephenson Confirmed By:BENNETT GARCIA MD
[2023-10-01] MEDS: 0.9% Normal Saline (500mL Bag) 500 ML 999 ML IV ×2 (05:14→06:55)
[2023-10-01 05:38] LABS: Absolute Lymphocyte Count 0.51 X10^3/uL (0.83-4.51); Absolute Neutrophil Count 3.4 X10^3/uL (2.0-7.7); Basophil# 0.02 X10^3/uL; Basophil% 0.4 % (0-1); Hematocrit 30.6 % (37-47); Hemoglobin 10.1 g/dL (12.0-15.0); Lymphocyte # 0.51 X10^3/ul (0.83-4.51); Lymphocyte % 10.7 % (19-41); Mean Corpuscular Hgb 30.3 pg (27.0-32.0); Mean Corpuscular Volume 91.9 fL (81-99); Monocyte# 0.79 X10^3/uL; Monocyte% 16.6 % (0-10); NRBC Flagged by Analyzer 0 % (0-5); Neutrophil # 3.43 X10^3/uL (2.7-7.7); Neutrophil % 71.9 % (47-70); POSITIVE DIFFERENTIAL YES; POSITIVE MORPHOLOGY YES; Platelet Count 227 K/mm3 (150-450); RBC Distribution Width CV 13.7 % (11.6-14.6); RBC Distribution Width SD 46.1 fl (35.1-43.9); Red Blood Count 3.33 M/mm3 (4.2-5.4); White Blood Count 4.8 K/mm3 (4.4-11.0)
[2023-10-01 05:53] LABS: Anion Gap 7 (5-15); BUN 23 mg/dL (7-18); BUN/Creat Ratio 16.5 RATIO (10-20); Calcium,Total 7.9 mg/dL (8.5-10.1); Chloride 101 mmol/L (98-107); Creatinine, Serum 1.39 mg/dL (0.55-1.02); EST Glomerular Filtration Rate 40 mL/min (>60); Est Glom Filt Rate - Afr Amer 49 mL/min (>60); Estimated Creatinine Clearance 56.55 ml/min; Glucose 98 mg/dL (74-106); Magnesium 1.4 mg/dL (1.6-2.6); Phosphorus 1.6 mg/dL (2.5-4.9); Potassium 3.6 mmol/L (3.5-5.1); Sodium Level 133 mmol/L (136-145)
[2023-10-01 06:01] LABS: Differential Indicated SCAN CRITERIA MET
[2023-10-01] MEDS: metroNIDAZOLE 500 MG/100 ML BAG 100 MG IV (06:13)
[2023-10-01] MEDS: Potassium Phosphate 30 MM in 0.9% Normal Saline (250mL Bag) 250 ML 42 MM IV (06:50)
[2023-10-01] MEDS: Magnesium Sulfate 2 GM in Dextrose 5%-Water (100mL Bag) 100 ML IV (06:50)
[2023-10-01] MEDS: fentaNYL 100 MCG/2 ML Ampul 50 MCG IV ×3 (06:52→10:25)
[2023-10-01] MEDS: 0.9% Saline Lock 10 ML Syringe IV (06:53)
--- NOTE | 2023-10-01 06:53 | CT_ITS ---
STUDY: CTA CHEST, ABDOMEN T PELVIS WITH CONTRAST REASON FOR EXAM: Female, 63 years old. colon ischemia s/p resection/pe -- arterial and venous phase through abdomen/pelvis. BOWEL RESECTION YESTERDAY RADIATION DOSAGE (If Supplied By Facility): CTDIvol = ( 25.07 ) mGy, DLP = ( 3953.40 ) mGycm TECHNIQUE: Transaxial imaging was performed following intravenous administration of IV 70mL [id number]-[id number]. Multiplanar coronal and sagittal images were reformatted. Individualized dose optimization techniques were used for this CT. COMPARISON: Comparison is made with prior study dated September 30, 2023. FINDINGS: CHEST Small bilateral pleural effusions with atelectasis and/or infiltration at the lung bases as well as in the posterior aspect of the right upper lobe. There are calcifications of the coronary arteries. Normal mediastinum. Normal hilar regions. Normal unenhanced pulmonary arteries. Normal aorta arch and descending thoracic aorta. There are degenerative changes of the thoracic spine. ABDOMEN Tiny intraperitoneal air seen anterior to the right lobe of the liver superiorly. There is decreased attenuation of the liver consistent with steatosis. At this time, there is no evidence of intrahepatic total venous air. The gallbladder is contracted. Normal spleen. Normal pancreas. Normal bilateral adrenal glands. Stable small right renal cyst. Normal left kidney. Normal visualized stomach. There is evidence of edematous changes within the distal small bowel. The patient is status post right hemicolectomy with postoperative changes within the peritoneal fat. Localized the extraluminal air collection is seen in the right lower quadrant at the operative site as well as in the mesenteric fat of the mesentery. There is diffuse atherosclerotic calcification of the abdominal aorta and its major visceral branches, without a demonstrated aneurysm. Normal inferior vena cava. Normal retroperitoneum. Postsurgical changes are seen in the anterior abdominal wall. Prior vertebral plasty of the L2 vertebra with loss of height. PELVIS A Munoz catheter is seen within a decompressed urinary bladder. A small amount of free fluid is seen in the cul-de-sac. Once again, calcific densities are seen along the dependent portion. Normal visualized small intestine. Normal visualized colon. There is no pelvic fluid. There is no pelvic lymphadenopathy or mass lesion. There is diffuse atherosclerotic calcification of the pelvic arteries. CT/CTA Chst, Abd, Pel W and/or WO IMPRESSION: Status post right hemicolectomy with postoperative changes seen at the operative site with a tiny collection of air at the operative site as well as in the root of the mesentery. No evidence of a portal venous air at this time. Bilateral atelectasis is worse in the right lung base with small bilateral pleural effusions. Small amount of free fluid in the cul-de-sac. Electronically Signed: Dhruv Min MD at 9:10 EDT ,
--- NOTE | 2023-10-01 07:21 | PCM.PN.BLA ---
Progress Note I was called this morning due to hypotension. We bolused the patient and ordered a stat CBC. Hemoglobin came back at 10 from 13 mL with rehydration. Patient is very painful but she only received Toradol overnight. She is hypotensive and I have transferred her to the ICU. I am consulting the ICU service. Patient was bolused again and was given fentanyl up in the ICU. She is getting a line placed. She will go down for a CTA of the chest abdomen pelvis to evaluate and if needed go back to surgery. Calvin Stephenson MD Pager: [facility] [address] [place] [address], [address] [place] [address] Office:
[2023-10-01] MEDS: Norepinephrine 8 MG in 0.9% Normal Saline (250mL Bag) 242 ML 9.4 MG CONT INF (07:25)
[2023-10-01] MEDS: Ondansetron 4 MG/2 ML Vial IV (07:27)
--- NOTE | 2023-10-01 07:50 | EX.PCM.CONCC ---
Assessment & Plan Assessment/Plan (1) Small bowel ischemia: (2) Small bowel perforation: PLAN: Plan RECOMMENDATIONS: 1. Vasopressor support to maintain a mean arterial pressure at or above 65 mmHg. 2. Obtain and send blood and urine cultures. 3. Continue antimicrobials. 4. Repeat H&H. Transfuse if hemoglobin drops below 7 g/dL. 5. Obtain repeat CT abdomen/pelvis. 6. Further recommendations per general surgery. IMPRESSIONS: 1. Undifferentiated shock The patient was transferred to the medical intensive care unit after she developed hypotension following surgery for small bowel and right colon ischemia, for which she underwent laparotomy with resection of distal small bowel and right colon. It is certainly plausible that the patient's hypotension may be secondary to worsening bowel ischemia. The patient has already been initiated on antimicrobials. Obstructive and cardiac etiologies seem unlikely at this time. Plan to continue supportive measures including vasopressors to maintain a mean arterial pressure at or above 65 mmHg. Blood and urine cultures have been collected. Empiric antibiotics will be continued, nonetheless. The patient is going to be taken for repeat CT abdomen/pelvis with further recommendations per general surgery. We will continue to monitor blood counts closely and transfuse if her hemoglobin drops below 7 g/dL. 2. Acute kidney injury Most likely prerenal in etiology in the setting of her acute presentation and subsequent shock. At the present time, the patient is clinically stable and maintaining adequate urine output. There is no current indication for renal replacement therapy. 3. Morbid obesity/hypothyroidism/anxiety/depression/hypertension/hyperlipidemia Complicates care, management, recovery and prognosis. The patient will remain n.p.o. for now. Continue to hold home antihypertensives. UPDATE: There are plans for transfer to [facility] for further evaluation, per general surgery. Report was provided to outside facility ICU staff. TIME: 42 minutes of critical care time, independent of procedures, was spent addressing the patient's undifferentiated shock, ischemic bowel, acute kidney injury, review of all data and collaboration with the care team. HPI Consult Data Date of Consult: 10/01/23 HPI Narrative Reason for Consultation: ICU management HPI Narrative: The patient is a 63-year-old female, with a history as outlined below, who presented to the emergency department via EMS on September 29 with abdominal pain which began shortly after eating breakfast earlier the same day. On presentation to the emergency department, the patient was documented to be afebrile and hemodynamically stable. Initial laboratory evaluation revealed a normal white blood cell count with a hemoglobin of 13.1 g/dL. Platelet count was within normal limits. Chemistry profile was notable for a sodium of 131, potassium of 3.4, chloride of 92 and creatinine of 1.6. Lactate was within normal limits. Liver function profile was unremarkable. CT abdomen/pelvis demonstrated findings concerning for small bowel ischemia. The patient was evaluated by general surgery and, given the findings of portal venous gas and pneumatosis of the small bowel with perforation, the decision was made to take the patient to surgery. On the evening of September 29, the patient underwent laparotomy with resection of distal small bowel and right colon. Estimated blood loss was 100 mL. The patient tolerated the procedure well. Although the patient initially returned to a non ICU floor, she developed hypotension overnight and was ultimately transferred to the intensive care unit earlier this morning. Her hemoglobin has remained stable, but she does report significant abdominal pain. She has received adequate fluid resuscitation, but has remained hemodynamically unstable. Therefore, following my initial evaluation of the patient this morning, a central venous catheter was placed and the patient was initiated on vasopressor support. [facility] Medical History Trigger finger, left ring finger Trigger finger, right ring finger Right carpal tunnel syndrome Bilateral carpal tunnel syndrome Hypothyroidism Anxiety and depression High cholesterol Hypertension Home Medications ?Medication ?Instructions ?Recorded ?Last Taken ?Type furosemide 40 mg tablet (Lasix) 40 mg PO DAILY #5 tabs 10/16/22 Unknown Rx buspirone 30 mg tablet 30 mg PO BID 04/28/23 Unknown History levothyroxine 125 mcg tablet 125 mcg PO QDAY 04/28/23 Unknown History losartan 100 1 tab PO QDAY 04/28/23 Unknown History mg-hydrochlorothiazide 12.5 mg tablet meloxicam 15 mg tablet 15 mg PO QDAY 04/28/23 Unknown History potassium citrate 99 mg capsule mg PO 04/28/23 Unknown History quetiapine 200 mg tablet 200 mg PO QHS 04/28/23 Unknown History tizanidine 4 mg tablet 4 mg PO TID 04/28/23 Unknown History trazodone 100 mg tablet 100 mg PO QHS 04/28/23 Unknown History venlafaxine 150 mg 150 mg PO QDAY 04/28/23 Unknown History capsule,extended release 24 hr verapamil 240 mg tablet,extended 240 mg PO QDAY 04/28/23 Unknown History release pregabalin 50 mg capsule mg PO 06/26/23 Unknown History Allergy/AdvReac Type Severity Reaction Status Date / Time cefaclor (From Ceclor) Allergy Anaphylaxis Verified 09/30/23 19:14 chlorhexidine Allergy Hives Verified 09/30/23 19:14 codeine Allergy Anaphylaxis Verified 09/30/23 19:14 paroxetine (From Paxil) Allergy Anaphylaxis Verified 09/30/23 19:14 Penicillins Allergy Anaphylaxis Verified 09/30/23 19:14 Sulfa (Sulfonamide Allergy Anaphylaxis Verified 09/30/23 19:14 Antibiotics) Surgical History S/P TKR (total knee replacement) History of shoulder replacement History of hysterectomy History of cholecystectomy Hx of appendectomy Social History household members: none Smoking Status: Current every day smoker tobacco type: cigarettes and e-cigarettes alcohol intake: never ROS ROS Narrative 10 systems were reviewed with pertinent positives as noted in the HPI above. Physical Exam Const alert Constitutional Narrative: Morbidly obese. Writhing around in bed. General Appearance: cooperative HEENT normocephalic and head/scalp atraumatic Eyes PERRL, EOMs intact bilaterally and conjunctivae normal Neck supple General: trachea midline and CVC in place Chest inspection of chest normal Resp Effort and Inspection: tachypneic Auscultation: diminished lung sounds Cardio S1 normal heart sound and S2 normal heart sound Rate: tachycardic GI soft to palpation Inspection: incision Palpation: tender Extremity no clubbing, cyanosis or edema Skin no rashes or lesions noted Neuro CN's II-XII intact bilaterally and no focal motor deficits Psych Mood & Affect: anxious Lab / Micro Data 10/01/23 07:50 10/01/23 05:30 Labs: Laboratory Results - last 24 hr 09/30/23 16:40: WBC 10.8, RBC 4.19 L, Hgb 13.1, Hct 38.5, MCV 91.9, MCH 31.3, MCHC 34.0, RDW Std Deviation 46.3 H, RDW Coeff of Vicki 13.5, Plt Count 293, MPV 9.8, Immature Gran % (Auto) 0.400, Neut % (Auto) 91.2 H, Lymph % (Auto) 4.7 L, Tama % (Auto) 3.3, Eos % (Auto) 0.1, Baso % (Auto) 0.3, Absolute Neuts (auto) 9.8 H, Absolute Lymphs (auto) 0.50 L, Nucleated RBC % 0, Sodium 131 L, Potassium 3.4 L, Chloride 92 L, Carbon Dioxide 28.0, Anion Gap 11, BUN 22 H, Creatinine 1.61 H, Est GFR (MDRD) Af Amer 41 L, Est GFR (MDRD) Non-Af 34 L, BUN/Creatinine Ratio 13.7, Glucose 136 H, Calcium 9.5, Total Bilirubin 0.40, AST 15, ALT 26, Alkaline Phosphatase 87, Total Protein 7.5, Albumin 3.7, Globulin 3.8, Albumin/Globulin Ratio 1.0, Lipase 28 09/30/23 18:25: Lactic Acid 1.9 10/01/23 05:30: WBC 4.8, RBC 3.33 L, Hgb 10.1 L, Hct 30.6 L, MCV 91.9, MCH 30.3, MCHC 33.0, RDW Std Deviation 46.1 H, RDW Coeff of Vicki 13.7, Plt Count 227, MPV 10.0, Immature Gran % (Auto) 0.400, Neut % (Auto) 71.9 H, Lymph % (Auto) 10.7 L, Tama % (Auto) 16.6 H, Eos % (Auto) 0.0, Baso % (Auto) 0.4, Absolute Neuts (auto) 3.4, Absolute Lymphs (auto) 0.51 L, Nucleated RBC % 0, Sodium 133 L, Potassium 3.6, Chloride 101, Carbon Dioxide 25.0, Anion Gap 7, BUN 23 H, Creatinine 1.39 H, Estim Creat Clear Calc 56.55, Est GFR (MDRD) Af Amer 49 L, Est GFR (MDRD) Non-Af 40 L, BUN/Creatinine Ratio 16.5, Glucose 98, Calcium 7.9 L, Phosphorus 1.6 L, Magnesium 1.4 L, Blood Type O POSITIVE, Antibody Screen NEGATIVE, Crossmatch See Detail Imaging Radiology Impression Abdomen/Pelvis CT 09/30/23 16:53 IMPRESSION: Suspect small bowel ischemia complicated by local containing perforation at the central abdomen. Electronically Signed: Vince Guzman MD at 18:18 EDT , ADDENDUM: 09/30/23 1828 IMPRESSION: Suspect small bowel ischemia complicated by local containing perforation at the central abdomen. N.B. : The above Results were Read Back by Vince Guzman MD to Dirk Banda MD, and understanding confirmed on 09/30/2023 18:21:06 (ET). Electronically Signed: Vince Guzman MD at 18:18 EDT , ADDENDUM: 09/30/23 1830 IMPRESSION: undefined Charges/Coding Procedures Hospitalists Procedures: [id number] Critical Care 1st Hr
--- NOTE | 2023-10-01 07:50 | PCM.OP.PRO ---
Procedure Report Date of Procedure: 10/01/23 Central Venous Catheter Indication: Hypotension Consent was obtained from: Patient A time-out was completed verifying correct patient, procedure, site, positioning, and special equipment if applicable. The patient was placed in a dependent position appropriate for central line placement based on the vein to be cannulated. The patient's right neck was prepped and draped in a sterile fashion. 1% lidocaine was used to anesthetize the surrounding skin area. A triple-lumen catheter was introduced into the right IJ using the Seldinger technique and under ultrasound guidance. The catheter was threaded smoothly over the guidewire and appropriate blood return was obtained. Each lumen of the catheter was evacuated of air and flushed with sterile saline. The catheter was then sutured in place to the skin and a sterile dressing applied. Chest x-ray to confirm appropriate positioning is pending. ULTRASOUND GUIDANCE STATEMENT (Vascular Access): I performed ultrasound image acquisition and interpretation for needle placement during the procedure. The vessel was identified and found to be free of thrombosis by compression technique. A safe point of entry was marked at the skin in an angle for axis was determined. The needle was guided by obtaining free-flowing fluid and by real-time visualization. Procedures Hospitalists Procedures: [id number] Insert Non-tunnel CV Cath
--- NOTE | 2023-10-01 07:52 | RAD_ITS ---
STUDY: X-RAY CHEST REASON FOR EXAM: Female, 63 years old. Central line placement TECHNIQUE: Single AP portable view of the chest. COMPARISON: Comparison is made with prior study dated October 16, 2022. FINDINGS: A right-sided central line is been placed. The tip is at the junction of the superior vena cava and right atrium. EKG electrodes are seen. There is elevation of the right hemidiaphragm. Mild degree of increased markings at the lung bases more prominent at the left lung base suggestive of atelectasis. There is no demonstrated pleural abnormality. Normal size heart. Normal mediastinum and violeta. Normal visualized pulmonary arteries. There is atherosclerotic calcification of the aortic arch with tortuosity. Normal visualized thoracic spine. Left shoulder replacement. There is no demonstrated abnormality of the visualized soft tissue structures of the upper abdomen. RAD/CXR for Line Placement IMPRESSION: The tip of the right-sided central line is at the junction of the superior vena cava and right atrium. Findings suggestive of mild bibasilar atelectasis more prominent at the left lung base. Electronically Signed: Dhruv Min MD at 8:04 EDT ,
[2023-10-01 07:57] LABS: Hematocrit 30.6 % (37-47); Hemoglobin 10.1 g/dL (12.0-15.0)
[2023-10-01 08:30] LABS: Differential Comment SCANNED
--- NOTE | 2023-10-01 09:15 | CASEMGMT ---
[facility] is as follows: [facility], [facility], [facility], [facility], [facility]), and . Deborah Núñez, Discharge Planning Asst.
--- NOTE | 2023-10-01 09:49 | PRO.PCM_ITS ---
Procedure Report Date of Procedure: 10/01/23 Arterial Line Indication: Hypotension Consent was obtained from: Patient A time-out was completed verifying correct patient, procedure, site, positioning, and special equipment if applicable. Jakob's test was performed to ensure adequate perfusion. The patient's right wrist was prepped and draped in the sterile fashion. 1% lidocaine was used to anesthetize the area. An 18- gauge arrow arterial line was introduced into the right radial artery. The catheter was threaded over the guidewire and the needle was removed with the appropriate pulsatile blood return. The catheter was then sutured in place to the skin and a sterile dressing applied. Perfusion to the extremity distal to the point of catheter insertion was checked and found to be adequate. ULTRASOUND GUIDANCE STATEMENT (Vascular Access): I perform ultrasound image acquisition and interpretation for needle placement during this procedure. The vessel was identified and found to be free of thrombosis by compression technique. A safe point of entry was marked at the skin and then angle for access was determined. The needle was guided by obtaining free-flowing fluid and by real-time visualization. Procedures Hospitalists Procedures: [id number] Insertion Catheter Artery
[2023-10-01] MEDS: Vasopressin 20 UNITS in 0.9% Normal Saline (50mL Bag) 24 ML 3 UNITS CONT INF (09:58)
--- NOTE | 2023-10-01 10:08 | PCM.PN.BLA ---
Progress Note Patient has now been started on pressors. I repeated a CT scan which did not show pneumatosis or galilea ischemia today. There is no large hematoma to indicate bleeding. Given the fact that she is now on pressors and still having extreme pain I would like to transfer her to [facility] for arteriogram. I discussed this with the surgeon on-call and he agreed to accept. I discussed this with the family as well and they are agreeable. Calvin Stephenson MD Pager: [facility] [address] [place] [address], [address] [place] [address] Office:
--- NOTE | 2023-10-01 14:33 | CHAPLAIN ---
Type of Pastoral Visit _x__ Initial Visit ___ Follow-up Visit ___ On-call Visit ___ General Patient Visit ___ Spiritual Assessment ___ Family Conference ___ Bereavement ___ Rapid Response ___ Code Blue ___ Other (describe below) Pastoral Care Referral From ___ Patient _x__ Family ___ Nurse ___ Physician ___ Chief Lifestyle Officer ___ Machine Skiver ___ Other (describe below) Sacrament/Intervention ___ Active listening ___ Anointing ___ Taoist ___ Bereavement ___ Communion ___ Nalini exploration ___ ___ Life review _x__ Prayer ___ Reconciliation ___ Sacrament of Sick _x__ Supportive presence ___ Wedding ___ Other (describe below) Pastoral Comments patient was being readied by transport team for life flight out to another hospital; sister of patient was with her in the room; offered support and presence to which both agreed; sister said we just need prayers; inquired of other support people and of any other needs for this time; stayed with patient until transport was ready to leave; pt expresses thanks for the supportive prayers (given silently)
== END 2023-10-01 11:43 | disposition short-term general hospital (02) | DRG 329 ==
LOC: ED 18:43 → SDC 19:00 → PCU 21:37 → SDC 21:45 → PCU 21:45 → ICU 10-01 07:43
PROVIDERS: Internal Medicine Critical Care Medicine; Admitting Provider Surgery; Emergency Provider Emergency Medicine; PCP Family Medicine; Referring Provider Surgery; Visit Provider Surgery
PROC: 0DTF0ZZ Resection of Right Large Intestine, Open Approach (ICD-10-PCS; CPT 49000; principal; 2023-09-30 19:00)
DX: K55.029 Acute infarction of small intestine, extent unspecified (principal); K63.1 Perforation of intestine (nontraumatic); N17.9 Acute kidney failure, unspecified; T81.10XA Postprocedural shock unspecified, initial encounter; E66.01 Morbid (severe) obesity due to excess calories; I10 Essential (primary) hypertension; F32.A Depression, unspecified; E03.9 Hypothyroidism, unspecified; R11.2 Nausea with vomiting, unspecified; K55.049 Acute infarction of large intestine, extent unspecified; E78.00 Pure hypercholesterolemia, unspecified; R19.7 Diarrhea, unspecified; F41.9 Anxiety disorder, unspecified; F17.210 Nicotine dependence, cigarettes, uncomplicated; F17.290 Nicotine dependence, other tobacco product, uncomplicated; Z79.1 Long term (current) use of non-steroidal anti-inflammatories (NSAID); Z79.890 Hormone replacement therapy; Z79.899 Other long term (current) drug therapy; Z90.49 Acquired absence of other specified parts of digestive tract; Y83.6 Removal of other organ (partial) (total) as the cause of abnormal reaction of the patient, or of later complication, without mention of misadventure at the time of the procedure; Y92.239 Unspecified place in hospital as the place of occurrence of the external cause
CPT/HCPCS: 36415; 71045; 71275; 74174; 74177; 80048; 80053; 83605; 83690; 83735; 84100; 85014; 85018; 85025; 86850; 86900; 86901; 86920; 87040; 87086; 87088; 88309; 93005; 97802; 99284; J7030; J7040; J7050; J7120; Q9967; A4216; C1751; J0744; J2405; J3490

== ENCOUNTER → 2023-10-16 | Outpatient (REF) | payer MEDICARE, MEDICAID, SELFPAY ==
[2023-10-16 08:57] LABS: Anion Gap 11 (5-15); BUN 5 mg/dL (7-18); BUN/Creat Ratio 6.3 RATIO (10-20); Calcium,Total 9.2 mg/dL (8.5-10.1); Chloride 97 mmol/L (98-107); Creatinine, Serum 0.79 mg/dL (0.55-1.02); EST Glomerular Filtration Rate 77 mL/min (>60); Est Glom Filt Rate - Afr Amer 93 mL/min (>60); Glucose 93 mg/dL (74-106); Potassium 3.7 mmol/L (3.5-5.1); Sodium Level 129 mmol/L (136-145)
== END ==
LOC: OLS.SW 05:00
PROVIDERS: PCP Family Medicine; Visit Provider Family Medicine
DX: K55.019 Acute (reversible) ischemia of small intestine, extent unspecified (principal)
CPT/HCPCS: 36415; 80048

== ENCOUNTER → 2023-11-18 | Outpatient (REF) | payer MEDICARE, MEDICAID, SELFPAY ==
[2023-11-18 09:06] LABS: Hematocrit 37.5 % (37-47); Hemoglobin 12.6 g/dL (12.0-15.0); Mean Corp Hgb Conc 33.6 g/dL (32-36); Mean Corpuscular Volume 89.3 fL (81-99); Mean Platelet Vol. 10.4 fl (6.2-12.0); Platelet Count 267 K/mm3 (150-450); RBC Distribution Width CV 14.5 % (11.6-14.6)
== END ==
LOC: OLS.SW 05:00
PROVIDERS: PCP Family Medicine; Visit Provider Family Medicine
DX: J44.9 Chronic obstructive pulmonary disease, unspecified (principal); E78.5 Hyperlipidemia, unspecified; E03.9 Hypothyroidism, unspecified; I50.30 Unspecified diastolic (congestive) heart failure
CPT/HCPCS: 36415; 85027

== ENCOUNTER 2023-11-19 08:08 | Inpatient (IN) | payer MEDICARE, MEDICAID, SELFPAY ==
[2023-11-19] VITALS (8 sets, daily range): BP systolic 107–137; BP diastolic 51–101; PULSE 79–100; RESP 14–28; TEMP 35.5–36.6; O2SAT 94–99; BMI 40.5; BMI 39.7
--- NOTE | 2023-11-19 08:19 | CT_ITS ---
STUDY: CT ABDOMEN AND PELVIS WITHOUT CONTRAST REASON FOR EXAM: Female, 63 years old. pain, vomiting, hx SBO RADIATION DOSAGE (If Supplied By Facility): CTDIvol = ( 24.66 ) mGy, DLP = ( 1275.45 ) mGycm TECHNIQUE: Transaxial images were obtained from the dome of the diaphragm to the symphysis pubis without oral contrast, and without intravenous contrast. Sagittal and coronal images were reconstructed. Individualized dose optimization techniques were used for this CT. COMPARISON: 10/01/2023 FINDINGS: The visualized lung bases are unremarkable. The visualized portions of the heart are within normal limits. Elevated right hemidiaphragm. Normal liver. There are surgical clips in the gallbladder fossa consistent with a prior cholecystectomy. Normal spleen. Normal pancreas. Normal bilateral adrenal glands. Normal right kidney. Normal left kidney. Normal visualized stomach. Normal small intestine. Status post right hemicolectomy. There is diffuse atherosclerotic calcification of the abdominal aorta, without a demonstrated aneurysm. Normal inferior vena cava. Normal retroperitoneum. Normal urinary bladder. There is a small umbilical hernia containing fat. Chronic compression fracture of L2 treated with vertebroplasty. CT/Abdomen/Pelvis without Cont IMPRESSION: No renal or ureteral stone. Electronically Signed: Eugene Carmichael MD at 10:47 EDT ,
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
[2023-11-19] MEDS: Ondansetron 4 MG/2 ML Vial IV (08:34)
[2023-11-19] MEDS: fentaNYL 100 MCG/2 ML Ampul 50 MCG IV (08:34)
[2023-11-19 08:50] LABS: Absolute Lymphocyte Count 1.23 X10^3/uL (0.83-4.51); Basophil# 0.05 X10^3/uL; Basophil% 0.4 % (0-1); Eosinophil# 0.04 X10^3/uL; Eosinophils% 0.3 % (0-5); Hematocrit 39.1 % (37-47); Hemoglobin 13.2 g/dL (12.0-15.0); Lymphocyte # 1.23 X10^3/ul (0.83-4.51); Lymphocyte % 10.6 % (19-41); Mean Corp Hgb Conc 33.8 g/dL (32-36); Mean Corpuscular Hgb 29.8 pg (27.0-32.0); Mean Corpuscular Volume 88.3 fL (81-99); Mean Platelet Vol. 10.5 fl (6.2-12.0); Monocyte# 1.13 X10^3/uL; Monocyte% 9.7 % (0-10); NRBC Flagged by Analyzer 0 % (0-5); Neutrophil # 9.02 X10^3/uL (2.7-7.7); Neutrophil % 77.5 % (47-70); Platelet Count 279 K/mm3 (150-450); RBC Distribution Width CV 14.6 % (11.6-14.6); RBC Distribution Width SD 46.5 fl (35.1-43.9); Red Blood Count 4.43 M/mm3 (4.2-5.4); White Blood Count 11.6 K/mm3 (4.4-11.0)
[2023-11-19 09:06] LABS: ALB/GLOB Ratio 0.9 RATIO (0.9-2.4); AST(SGOT) 7 U/L (15-37); Alanine Aminotransfer ALT/SGPT 13 U/L (13-56); Alkaline Phosphatase 143 U/L (45-117); Anion Gap 14 (5-15); BUN 68 mg/dL (7-18); BUN/Creat Ratio 14.2 RATIO (10-20); Calcium,Total 11.1 mg/dL (8.5-10.1); Chloride 91 mmol/L (98-107); Creatinine, Serum 4.78 mg/dL (0.55-1.02); EST Glomerular Filtration Rate 10 mL/min (>60); Est Glom Filt Rate - Afr Amer 12 mL/min (>60); Estimated Creatinine Clearance 15.04 ml/min; Globulin 4.3 g/dL (2.2-4.2); Glucose 75 mg/dL (74-106); Lipase 227 U/L (13-75); Potassium 5.7 mmol/L (3.5-5.1); Protein, Total 8.3 g/dL (6.4-8.2); Sodium Level 120 mmol/L (136-145)
--- NOTE | 2023-11-19 09:16 | EKG12_ITS ---
Test Reason : GI BLEED Blood Pressure : / mmHG Vent. Rate : 085 BPM Atrial Rate : 085 BPM P-R Int : 178 ms QRS Dur : 080 ms QT Int : 336 ms P-R-T Axes : 046 -03 090 degrees QTc Int : 399 ms Normal sinus rhythm T wave abnormality, consider anterolateral ischemia Abnormal ECG Confirmed by ANDREW CAMARA, WISAM ([id number]), editor magazine ARUN DUEÑAS ([id number]) on 11/21/2023 2:00:01 PM Referred By: Confirmed By:WISAM MORALES MD
[2023-11-19 09:18] LABS: Lactic Acid 0.9 mmol/L (0.4-1.9)
[2023-11-19] MEDS: 0.9% Normal Saline (1000mL) 1,000 ML 999 ML IV (09:34)
--- NOTE | 2023-11-19 11:17 | ED.RN ---
Dr. Paula bedside
--- NOTE | 2023-11-19 11:42 | NURSING ---
PCU HORTENC[facility], HYPERKALEMIA
--- NOTE | 2023-11-19 11:45 | PCM.HP.STD ---
HPI - General General Date of Admission: 11/19/23 Date of Service: 11/19/23 Chief Complaint: Nausea/Vomiting/Diarrhea HPI Narrative ROSALINDA VALE, is a 63 F who presented to the emergency department at [facility] on 11/19/2023 after being sent in by [facility] for what they called hematemesis. The patient had a recent admission here on 09/30/2023 through 10/01/2023 at which time she was admitted by general surgery and taken to the OR on the for a small bowel resection and partial colectomy of the right colon. This was performed for small bowel ischemia with perforation. She ultimately required transfer to tertiary center on 10/01/2023 and was transferred to [facility] in [place]. 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 Patient states ultimately she was discharged to [facility] after being at [facility] for ongoing rehab. She stated that her appetite was fine and she was actually doing quite well up until about 3 weeks ago. Family assists with her history and they tell me that she had a Pneumovax vaccine 3 weeks ago and since that point in time she has had nausea and vomiting, diarrhea and intermittent abdominal pain. Her p.o. intake has declined and the patient reports profuse watery diarrhea. She was on antibiotics both here and at outside hospital. She states she has been able to take her meds but she is unsure what is coming back up when she does vomit and is not clear on absorption. Given her ongoing decline and ongoing issues with vomiting and concern for hematemesis she was sent to the emergency department. Vital signs on presentation showed a temperature of 96, heart rate 87, blood pressure 128/110 with a repeat of 125/81, and pulse ox is 97% on room air at rest. CBC shows a mild leukocytosis with a white count 11.6, hemoglobin of 13.2 and a platelet count of 279,000. Her chemistry panel is markedly abnormal with a sodium of 120, potassium of 5.7, chloride of 91, bicarb of 16 with an anion gap of 14, BUN of 68 and a serum creatinine of 4.78 with a baseline serum creatinine of 0.7-0.9. Her calcium is 11.1. Liver functions are fairly unremarkable. Lipase was 227 and TSH was 85.7. EKG is stable when compared to previous and shows no changes concerning with her hyperkalemia. CT of the abdomen pelvis shows no marked abnormalities. She was given antiemetics, pain medication and IV fluids emergency department and request for admission was made. [facility] Medical History Heart failure Gastroenteritis Diarrhea Small bowel ischemia Small bowel perforation Trigger finger, left ring finger Trigger finger, right ring finger Right carpal tunnel syndrome Bilateral carpal tunnel syndrome Hypothyroidism Anxiety and depression High cholesterol Hypertension Home Medications ?Medication ?Instructions ?Recorded ?Last Taken ?Type buspirone 30 mg tablet 15 mg PO BID 04/28/23 Unknown History meloxicam 15 mg tablet 15 mg PO QDAY 04/28/23 Unknown History tizanidine 4 mg tablet 4 mg PO TID 04/28/23 Unknown History trazodone 100 mg tablet 100 mg PO QHS 04/28/23 Unknown History venlafaxine 150 mg 150 mg PO QDAY 04/28/23 Unknown History capsule,extended release 24 hr verapamil 240 mg tablet,extended 240 mg PO QDAY 04/28/23 Unknown History release atorvastatin 10 mg tablet 10 mg PO QHS 11/19/23 Unknown History bupropion HCl 200 mg tablet,12 hr 200 mg PO DAILY 11/19/23 Unknown History sustained-release cetirizine 10 mg tablet 10 mg PO QHS 11/19/23 Unknown History furosemide 40 mg tablet (Lasix) 80 mg PO DAILY 11/19/23 Unknown History levothyroxine 50 mcg tablet 50 mcg PO DAILY 11/19/23 Unknown History (Levo-T) losartan 100 mg tablet 100 mg PO DAILY 11/19/23 Unknown History melatonin 5 mg capsule 5 mg PO QHS 11/19/23 Unknown History omeprazole 20 mg capsule,delayed 20 mg PO DAILY 11/19/23 Unknown History release oxycodone 5 mg tablet 5 mg PO Q6H PRN pain 11/19/23 Unknown History potassium chloride 20 mEq 20 meq PO DAILY 11/19/23 Unknown History tablet,extended release spironolactone 50 mg tablet 50 mg PO DAILY 11/19/23 Unknown History Allergy/AdvReac Type Severity Reaction Status Date / Time cefaclor (From [facility]) Allergy Anaphylaxis Verified 11/19/23 08:45 chlorhexidine Allergy Hives Verified 11/19/23 08:45 codeine Allergy Anaphylaxis Verified 11/19/23 08:45 paroxetine (From Paxil) Allergy Anaphylaxis Verified 11/19/23 08:45 Penicillins Allergy Anaphylaxis Verified 11/19/23 08:45 Sulfa (Sulfonamide Allergy Anaphylaxis Verified 11/19/23 08:45 Antibiotics) Surgical History History of exploratory laparotomy S/P TKR (total knee replacement) History of shoulder replacement History of hysterectomy History of cholecystectomy Hx of appendectomy Social History household members: none Smoking Status: Former smoker alcohol intake: never ROS Constitutional Constitutional: Reports anorexia, fatigue and weakness; Denies change in weight, chills, fever(s), malaise, night sweats or other Eyes Eyes: Denies blurry vision, change in eye color, change in vision, discharge from eye(s), double vision, erythema, eye pain, loss of vision or other ENT HEENT: Denies abnormal hearing, dysphagia, ear pain, epistaxis, headache(s), hearing loss, nasal congestion, nasal discharge, post nasal drip, sinus pressure, sore throat or other Cardiovascular Cardiovascular: Denies chest pain, claudication, dyspnea on exertion, edema, lightheadedness, orthopnea, palpitations, paroxysmal nocturnal dyspnea, rapid heart rate, syncope or other Respiratory/Chest Respiratory/Chest: Denies cough, dyspnea, excessive phlegm production, hemoptysis, productive cough, shortness of breath at rest, shortness of breath with exertion, wheezing or other Gastrointestinal Gastrointestinal: Reports abdominal pain, diarrhea, nausea and vomiting; Denies coffee ground emesis, constipation, dyspepsia, hematemesis, hematochezia, loose stools, melena or other Genitourinary Genitourinary: Reports other Details: Decreased urine output ; Denies burning urination, difficulty urinating, dysuria, hematuria, nocturia, urinary frequency, urinary hesitancy, urinary incontinence or urinary urgency Musculoskeletal Musculoskeletal: Denies arthralgias, back pain, joint pain, joint stiffness, joint swelling, myalgias, neck pain or other Neurologic Neurologic: Denies abnormal gait, abnormal speech, confusion, disequilibrium, dizziness, focal weakness, headache(s), numbness, paresthesias, seizure-like activity, seizures, syncope, tingling, tremor(s) or other Psychiatric Psychiatric: Reports anxiety and depression; Denies homicidal ideation, suicidal ideation or other Endocrine Endocrinology: Reports cold intolerance; Denies change in body appearance, excessive sweating, heat intolerance, polydipsia, polyuria or other Hematologic/Lymphatic Hematologic/Lymphatic: Denies anemia, easy bleeding, easy bruising, lymphadenopathy or other Allergic/Immunologic Allergic/Immunologic: Denies rhinitis, hives, eczemia, asthma or other Vital Signs Vital Signs Vital Signs: 11/19/23 08:09 11/19/23 10:08 Temperature 96 F L Temperature Source Temporal Pulse Rate 87 86 Respiratory Rate 24 H 16 Blood Pressure 128/101 H 125/81 H Blood Pressure Mean 110 95 Pulse Ox 97 97 Oxygen Delivery Method Room Air Weight Weight: 114 kg Body Mass Index (BMI) 40.5 Physical Exam Const alert, oriented x3 and no apparent distress; Negative for average body habitus, healthy appearing or well nourished Constitutional Narrative: Ill-appearing but not toxic, morbidly obese, upper middle-aged, white female, lying in bed and appears older than stated age, currently appears comfortable, family at bedside General Appearance: cooperative HEENT normocephalic, head/scalp atraumatic and hearing grossly normal bilaterally HEENT Narrative: Mucous membranes are dry, Mallampati is 3, no thrush, edentulous Eyes PERRL, EOMs intact bilaterally and conjunctivae normal Eyes Narrative: No scleral icterus Neck no lymphadenopathy and supple Neck Narrative: Neck is short and thick, trachea midline Resp normal respiratory effort, no retractions, no use of accessory muscles and clear to auscultation bilaterally Auscultation: Negative for rales, rhonchi or wheezes Cardio regular rate, regular rhythm, S1 normal heart sound, S2 normal heart sound, no murmurs, no rub, no gallops and no clicks GI GI Narrative: Bowel sounds are slightly hypoactive, abdomen is nondistended and nontender, well-healing surgical incisions, abdomen is soft, tenderness noted mostly on the left side of the abdomen Extremity no clubbing, cyanosis or edema Skin no jaundice, no petechiae and no mottling Skin Narrative: Abnormal skin turgor with tenting Neuro oriented x3, moves all extremities and no focal motor deficits Neuro Narrative: Marked generalized weakness and debility with no focal deficits Speech: speech normal Psych Psych Narrative: Affect is flat and mood seems somewhat depressed appropriate for the current situation Results Lab / Micro Data 11/19/23 08:36 11/19/23 08:36 Labs: Laboratory Results - last 24 hr 11/19/23 08:36: WBC 11.6 H, RBC 4.43, Hgb 13.2, Hct 39.1, MCV 88.3, MCH 29.8, MCHC 33.8, RDW Std Deviation 46.5 H, RDW Coeff of Vicki 14.6, Plt Count 279, MPV 10.5, Immature Gran % (Auto) 1.500 H, Neut % (Auto) 77.5 H, Lymph % (Auto) 10.6 L, Doddridge % (Auto) 9.7, Eos % (Auto) 0.3, Baso % (Auto) 0.4, Absolute Neuts (auto) 9.0 H, Absolute Lymphs (auto) 1.23, Nucleated RBC % 0, Sodium 120 L, Potassium 5.7 H, Chloride 91 L, Carbon Dioxide 16.0 L, Anion Gap 14, BUN 68 H, Creatinine 4.78 H, Estim Creat Clear Calc 15.04, Est GFR (MDRD) Af Amer 12 L, Est GFR (MDRD) Non-Af 10 L, BUN/Creatinine Ratio 14.2, Glucose 75, Lactic Acid 0.9, Calcium 11.1 H, Total Bilirubin 0.40, AST 7 L, ALT 13, Alkaline Phosphatase 143 H, Total Protein 8.3 H, Albumin 4.0, Globulin 4.3 H, Albumin/Globulin Ratio 0.9, Lipase 227 H Rhythm Strip Rhythm Strip: Sinus Rhythm Rate: 85 Ectopy: None Imaging Radiology Impression Abdomen/Pelvis CT 11/19/23 08:19 IMPRESSION: No renal or ureteral stone. Electronically Signed: Eugene Carmichael MD at 10:47 EDT , Assessment & Plan Assessment/Plan (1) Diffuse abdominal pain: (2) Acute renal failure superimposed on chronic kidney disease: (3) Hyperkalemia, diminished renal excretion: (4) Metabolic acidosis: (5) Nausea & vomiting: (6) Diarrhea: (7) Dehydration: (8) Hyponatremia: (9) Hypercalcemia: (10) Elevated lipase: PLAN: Plan Abdominal pain/nausea/vomiting -Etiology is unclear -CT abdomen pelvis is unremarkable. -TSH is very abnormal at greater than 80 right now and this could contribute -Clear liquid diet with appropriate p.o. medications -Antiemetics as needed -Low-dose as needed Dilaudid for pain with renal dysfunction -Check Gastroccult -Consult general surgery -Patient underwent laparotomy with resection of the distal small bowel and right colon on 09/30/[address] Stephenson Diarrhea -Patient reports that she has been having profuse watery diarrhea -Has been on antibiotics -Check C. difficile -Check enteric panel -Check lactoferrin -If infectious etiologies are unremarkable we will add antimotility agents JENNIFER on CKD stage II -Overall baseline renal function appears to be between 0.7 and 0.9 -Appears markedly dehydrated -4.78 on presentation -Hold home losartan -Hold home Lasix -Hold home Aldactone -Aggressive hydration--> patient has received 1 L in the emergency department and will continue with 2 more liters of LR and then reevaluate for ongoing fluid requirements -No renal abnormalities on imaging -Check UA and urine sodium Hyponatremia -Appears to be hypovolemic hyponatremia -Sodium on presentation 120 -Will trend with every 6 hours BMP for now -If remains hyponatremic may need further workup -Patient has had decreased solute intake and it sounds like maybe some increased free water intake as well Acute metabolic acidosis -Serum bicarb on presentation to 16 -IV fluids with LR -Likely related to JENNIFER -Continue to monitor Hyperkalemia -Secondary to the above -Hold Aldactone and losartan -Trend -Anticipate should improve with hydration Elevated lipase -Likely related to the above -No significant abnormalities found on CT consistent with pancreatitis and exam is not consistent with pancreatitis Abnormal TSH with history of hypothyroidism -TSH is markedly elevated -Paperwork from nursing facility states she is on 50 mcg daily but per documentation had previously been on 125 mcg daily -Patient also states at the nursing facility they were giving her Synthroid with food -Hold home oral thyroid replacement therapy and give IV 75 mcg -Repeat free T4 in 72 hours and then hopeful to transition back to oral Synthroid -This may be confounding her digestive issues Mild hypercalcemia -Likely related to dehydration -Repeat in a.m. essential hypertension Generalized weakness and debility due to acute on chronic issues as noted above -PT/OT consultation -Case management/social work consultation for assistance with discharge planning -Patient will need placement but does not want to return to [facility] Essential hypertension/hyperlipidemia -Hold verapamil -Hold Aldactone -Hold losartan -As needed hydralazine every 6 hours for systolic blood pressure greater than 150 -Hold home statin for now GERD -Hold home oral omeprazole -Protonix 40 mg IV twice daily Recent small bowel resection/partial colectomy -No significant abnormalities on CT -Consult general surgery for assistance with the above issues Anxiety/depression/insomnia -Continue home venlafaxine -Continue home trazodone -Continue home BuSpar -Continue home Wellbutrin Morbid obesity -Complicates treatment, prognosis, outcomes -Highly suspect patient may have obstructive sleep apnea Would recommend outpatient polysomnography after discharge DVT prophylaxis -Heparin 5000 units 3 times daily CODE STATUS -DNR CCA okay for short-term intubation as per discussion with family at bedside prior to admission Charges/Coding Visit Charges Inpatient E&M: 68604 Init Hosp L3
[2023-11-19 13:18] LABS: T4 Free Direct 0.76 ng/dL (0.76-1.46)
[2023-11-19] MEDS: Lactated Ringers 1,000 ML 150 ML IV ×2 (14:08→20:49)
[2023-11-19] MEDS: 0.9% Saline Lock 10 ML Syringe IV (14:08)
[2023-11-19] MEDS: proCHLORPERazine 10 MG/2 ML Vial 5 MG IV (14:18)
[2023-11-19] MEDS: HYDROmorphone Inj 0.2 MG/ML SYRINGE IV (14:20)
[2023-11-19] MEDS: LEVOTHYROXINE SODIUM 100 MCG VIAL 75 MCG IV (15:16)
[2023-11-19] MEDS: Heparin Injection (Vial) 5,000 UNIT/ML VIAL 5000 UNIT SC ×2 (15:16→20:58)
[2023-11-19 15:51] LABS: Anion Gap 13 (5-15); BUN 63 mg/dL (7-18); BUN/Creat Ratio 15.3 RATIO (10-20); Calcium,Total 10.1 mg/dL (8.5-10.1); Chloride 96 mmol/L (98-107); Creatinine, Serum 4.13 mg/dL (0.55-1.02); EST Glomerular Filtration Rate 12 mL/min (>60); Est Glom Filt Rate - Afr Amer 14 mL/min (>60); Estimated Creatinine Clearance 16.77 ml/min; Glucose 74 mg/dL (74-106); Potassium 4.8 mmol/L (3.5-5.1); Sodium Level 124 mmol/L (136-145)
--- NOTE | 2023-11-19 17:03 | CASEMGMT ---
Social Work- A list of SNF providers in pt geographical area and within pt insurance network with medicare ratings was provided for pt review. SW will f/u after pt has had the opportunity to select three choices. ZACKARY Hills
[2023-11-19] MEDS: Pantoprazole Sodium 40 MG in 0.9% Normal Saline (100mL MB+) 100 ML 330 MG IV (20:56)
[2023-11-19 21:09] LABS: Mucous, Urine 0 SEEN /hpf (<or=2+)
[2023-11-19 21:19] LABS: Color, Urine Yellow (Yellow); Glucose, Dipstick Normal (Normal); Ketone-Dipstick 5 mg/dl (Negative); Leukocyte Esterase-Dipstick 500 /ul (Negative); Nitrite-Dipstick Negative (Negative); Occult Blood-Urine 10 /ul (Negative); Protein-Dipstick 15 mg/dl (Negative); Specific Gravity, Urine 1.015 (1.002-1.030); Urine Bilirubin Dipstick Negative (Negative); Urine Clarity Cloudy (Clear); Urine Urobilinogen Normal (Normal)
[2023-11-19 21:26] LABS: Urine Sodium 46 mmol/L (Not Establ.)
[2023-11-19 21:28] LABS: Anion Gap 14 (5-15); BUN 59 mg/dL (7-18); BUN/Creat Ratio 16.6 RATIO (10-20); Calcium,Total 9.9 mg/dL (8.5-10.1); Chloride 98 mmol/L (98-107); Creatinine, Serum 3.55 mg/dL (0.55-1.02); EST Glomerular Filtration Rate 14 mL/min (>60); Est Glom Filt Rate - Afr Amer 17 mL/min (>60); Estimated Creatinine Clearance 19.51 ml/min; Glucose 63 mg/dL (74-106); Potassium 4.5 mmol/L (3.5-5.1); Sodium Level 127 mmol/L (136-145)
[2023-11-19 21:47] LABS: Squamous Epithelial Cells - UA 0-5 SEEN /hpf (5-10)
[2023-11-19 21:48] LABS: White Blood Cells >100 SEEN /hpf (0-5)
[2023-11-19 21:50] LABS: Bacteria 3+ /hpf (None Seen); Red Blood Cells-Urine 0-5 SEEN /hpf (0-5)
[2023-11-20] VITALS (9 sets, daily range): BP systolic 107–129; BP diastolic 45–69; PULSE 82–92; RESP 15–19; TEMP 35.9–36.9; O2SAT 97–100; BMI 40.7
[2023-11-20 01:57] LABS: Bedside Glucose 77 mg/dL (74-106)
[2023-11-20 03:18] LABS: Absolute Lymphocyte Count 1.24 X10^3/uL (0.83-4.51); Absolute Neutrophil Count 6.1 X10^3/uL (2.0-7.7); Basophil# 0.06 X10^3/uL; Basophil% 0.7 % (0-1); Eosinophil# 0.14 X10^3/uL; Eosinophils% 1.7 % (0-5); Hematocrit 31.8 % (37-47); Hemoglobin 10.7 g/dL (12.0-15.0); Lymphocyte # 1.24 X10^3/ul (0.83-4.51); Lymphocyte % 14.7 % (19-41); Mean Corp Hgb Conc 33.6 g/dL (32-36); Mean Corpuscular Hgb 30.1 pg (27.0-32.0); Mean Corpuscular Volume 89.3 fL (81-99); Mean Platelet Vol. 10.2 fl (6.2-12.0); Monocyte# 0.84 X10^3/uL; NRBC Flagged by Analyzer 0 % (0-5); Neutrophil # 6.05 X10^3/uL (2.7-7.7); Neutrophil % 71.9 % (47-70); Platelet Count 222 K/mm3 (150-450); RBC Distribution Width CV 14.6 % (11.6-14.6); RBC Distribution Width SD 47.1 fl (35.1-43.9); Red Blood Count 3.56 M/mm3 (4.2-5.4); White Blood Count 8.4 K/mm3 (4.4-11.0)
[2023-11-20 03:31] LABS: Anion Gap 10 (5-15); BUN 54 mg/dL (7-18); BUN/Creat Ratio 17.6 RATIO (10-20); Calcium,Total 9.6 mg/dL (8.5-10.1); Chloride 98 mmol/L (98-107); Creatinine, Serum 3.06 mg/dL (0.55-1.02); EST Glomerular Filtration Rate 16 mL/min (>60); Est Glom Filt Rate - Afr Amer 20 mL/min (>60); Estimated Creatinine Clearance 22.64 ml/min; Glucose 88 mg/dL (74-106); Magnesium 1.5 mg/dL (1.6-2.6); Phosphorus 2.4 mg/dL (2.5-4.9); Sodium Level 126 mmol/L (136-145)
[2023-11-20] MEDS: Heparin Injection (Vial) 5,000 UNIT/ML VIAL 5000 UNIT SC ×3 (05:06→22:01)
[2023-11-20] MEDS: 0.9% Saline Lock 10 ML Syringe IV ×7 (05:07→20:05)
[2023-11-20] MEDS: tiZANidine HCl 2 MG Tablet 4 MG PO ×2 (05:07→22:02)
[2023-11-20] MEDS: Ondansetron 4 MG/2 ML Vial IV ×2 (05:43→20:05)
[2023-11-20] MEDS: Pantoprazole Sodium 40 MG in 0.9% Normal Saline (100mL MB+) 100 ML 330 MG IV ×2 (07:39→21:57)
[2023-11-20] MEDS: Lactated Ringers 1,000 ML 150 ML IV ×2 (07:39→17:46)
[2023-11-20] MEDS: Ciprofloxacin 400 MG/200 ML BAG 200 MG IV (08:05)
[2023-11-20] MEDS: Magnesium Sulfate 2 GM in Dextrose 5%-Water (100mL Bag) 100 ML IV (08:08)
[2023-11-20] MEDS: proCHLORPERazine 10 MG/2 ML Vial 5 MG IV ×2 (08:17→13:23)
[2023-11-20] MEDS: Venlafaxine XR 150 MG Capsule PO (08:19)
[2023-11-20] MEDS: busPIRone 15 MG TABLET PO ×2 (08:19→22:02)
--- NOTE | 2023-11-20 08:27 | CON.PCM.SX_ITS ---
Assessment & Plan Assessment/Plan (1) Dehydration: (2) Nausea & vomiting: PLAN: Plan The patient is having severe dehydration as she also had a very elevated TSH. She did have some emesis which was considered possibly fecal. She had a CT scan which did not show any signs of obstruction. She did have a bowel obstruction that appeared nonbloody. Her hemoglobin is stable. The patient was receiving a low-dose of Synthroid at her half-way so she was receiving IV to replete. Continue hydration and observation. No surgical intervention at this time. Calvin Stephenson MD Pager: [facility] [address] [place] [address], [address] [place] [address] Office: HPI Consult Data Date of Consult: 11/20/23 HPI Narrative HPI Narrative: ROSALINDA VALE, is a 63 F who presents with vomiting. There was concern for upper GI bleed. The patient has been very dehydrated and not eating or drinking at the half-way. She says she has been having a lot of nausea. [facility] Medical History Heart failure Gastroenteritis Diarrhea Small bowel ischemia Small bowel perforation Trigger finger, left ring finger Trigger finger, right ring finger Right carpal tunnel syndrome Bilateral carpal tunnel syndrome Hypothyroidism Anxiety and depression High cholesterol Hypertension Home Medications ?Medication ?Instructions ?Recorded ?Last Taken ?Type buspirone 30 mg tablet 15 mg PO BID 04/28/23 Unknown History tizanidine 4 mg tablet 4 mg PO TID 04/28/23 Unknown History trazodone 100 mg tablet 100 mg PO QHS 04/28/23 Unknown History venlafaxine 150 mg 150 mg PO QDAY 04/28/23 Unknown History capsule,extended release 24 hr verapamil 240 mg tablet,extended 240 mg PO QDAY 04/28/23 Unknown History release atorvastatin 10 mg tablet 10 mg PO QHS 11/19/23 Unknown History bupropion HCl 200 mg tablet,12 hr 200 mg PO DAILY 11/19/23 Unknown History sustained-release cetirizine 10 mg tablet 10 mg PO QHS 11/19/23 Unknown History furosemide 40 mg tablet (Lasix) 80 mg PO DAILY 11/19/23 Unknown History levothyroxine 50 mcg tablet 50 mcg PO DAILY 11/19/23 Unknown History (Levo-T) losartan 100 mg tablet 100 mg PO DAILY 11/19/23 Unknown History melatonin 5 mg capsule 5 mg PO QHS 11/19/23 Unknown History omeprazole 20 mg capsule,delayed 20 mg PO DAILY 11/19/23 Unknown History release oxycodone 5 mg tablet 5 mg PO Q6H PRN pain 11/19/23 Unknown History potassium chloride 20 mEq 20 meq PO DAILY 11/19/23 Unknown History tablet,extended release spironolactone 50 mg tablet 50 mg PO DAILY 11/19/23 Unknown History Allergy/AdvReac Type Severity Reaction Status Date / Time cefaclor (From Ceclor) Allergy Anaphylaxis Verified 11/19/23 08:45 chlorhexidine Allergy Hives Verified 11/19/23 08:45 codeine Allergy Anaphylaxis Verified 11/19/23 08:45 paroxetine (From Paxil) Allergy Anaphylaxis Verified 11/19/23 08:45 Penicillins Allergy Anaphylaxis Verified 11/19/23 08:45 Sulfa (Sulfonamide Allergy Anaphylaxis Verified 11/19/23 08:45 Antibiotics) Surgical History History of exploratory laparotomy S/P TKR (total knee replacement) History of shoulder replacement History of hysterectomy History of cholecystectomy Hx of appendectomy Social History household members: none Smoking Status: Former smoker alcohol intake: never ROS Review of Systems ROS Unobtainable: due to mental status Constitutional Constitutional: Reports anorexia Eyes Eyes: Denies blurry vision Psychiatric Psychiatric: Reports depression Hematologic/Lymphatic Hematologic/Lymphatic: Denies easy bleeding Physical Exam Const alert and no apparent distress HEENT normocephalic Eyes PERRL Resp normal respiratory effort GI soft to palpation and non-tender Lab / Micro Data 11/20/23 03:10 11/20/23 03:10 Labs: Laboratory Results - last 24 hr 11/19/23 08:36: WBC 11.6 H, RBC 4.43, Hgb 13.2, Hct 39.1, MCV 88.3, MCH 29.8, MCHC 33.8, RDW Std Deviation 46.5 H, RDW Coeff of Vicki 14.6, Plt Count 279, MPV 10.5, Immature Gran % (Auto) 1.500 H, Neut % (Auto) 77.5 H, Lymph % (Auto) 10.6 L, Pocahontas % (Auto) 9.7, Eos % (Auto) 0.3, Baso % (Auto) 0.4, Absolute Neuts (auto) 9.0 H, Absolute Lymphs (auto) 1.23, Nucleated RBC % 0, Sodium 120 L, Potassium 5.7 H, Chloride 91 L, Carbon Dioxide 16.0 L, Anion Gap 14, BUN 68 H, Creatinine 4.78 H, Estim Creat Clear Calc 15.04, Est GFR (MDRD) Af Amer 12 L, Est GFR (MDRD) Non-Af 10 L, BUN/Creatinine Ratio 14.2, Glucose 75, Lactic Acid 0.9, C alcium 11.1 H, Total Bilirubin 0.40, AST 7 L, ALT 13, Alkaline Phosphatase 143 H , Total Protein 8.3 H, Albumin 4.0, Globulin 4.3 H, Albumin/Globulin Ratio 0.9, Lipase 227 H, TSH 85.700 H, Free T4 0.76 11/19/23 15:05: Sodium 124 L, Potassium 4.8, Chloride 96 L, Carbon Dioxide 15.0 L, Anion Gap 13, BUN 63 H, Creatinine 4.13 H, Estim Creat Clear Calc 16.77, Est GFR (MDRD) Af Amer 14 L, Est GFR (MDRD) Non-Af 12 L, BUN/Creatinine Ratio 15.3, Glucose 74, Calcium 10.1 11/19/23 20:55: Sodium 127 L, Potassium 4.5, Chloride 98, Carbon Dioxide 15.0 L, Anion Gap 14, BUN 59 H, Creatinine 3.55 H, Estim Creat Clear Calc 19.51, Est GFR (MDRD) Af Amer 17 L, Est GFR (MDRD) Non-Af 14 L, BUN/Creatinine Ratio 16.6, G lucose 63 L, Calcium 9.9 11/19/23 21:00: Urine Color Yellow, Urine Clarity Cloudy, Urine pH 6.0, Ur Specific Bigelow 1.015, Urine Protein 15 H, Urine Glucose (UA) Normal, Urine Ketones 5 H, Urine Occult Blood 10 H, Urine Nitrite Negative, Urine Bilirubin Negative, Urine Urobilinogen Normal, Ur Leukocyte Esterase 500 H, Urine RBC 0-5 SEEN, Urine WBC >100 SEEN, Ur Squamous Epith Cells 0-5 SEEN, Urine Bacteria 3+, Urine Mucus 0 SEEN, Ur Random Sodium 46 11/20/23 01:33: POC Glucose 77 11/20/23 03:10: WBC 8.4, RBC 3.56 L, Hgb 10.7 L, Hct 31.8 L, MCV 89.3, MCH 30.1, MCHC 33.6, RDW Std Deviation 47.1 H, RDW Coeff of Vicki 14.6, Plt Count 222, MPV 10.2, Immature Gran % (Auto) 1.000 H, Neut % (Auto) 71.9 H, Lymph % (Auto) 14.7 L, Pocahontas % (Auto) 10.0, Eos % (Auto) 1.7, Baso % (Auto) 0.7, Absolute Neuts (auto) 6.1, Absolute Lymphs (auto) 1.24, Nucleated RBC % 0, Sodium 126 L, Potassium 4.0, Chloride 98, Carbon Dioxide 18.0 L, Anion Gap 10, BUN 54 H, C reatinine 3.06 H, Estim Creat Clear Calc 22.64, Est GFR (MDRD) Af Amer 20 L, Est GFR (MDRD) Non-Af 16 L, BUN/Creatinine Ratio 17.6, Glucose 88, Calcium 9.6, P hosphorus 2.4 L, Magnesium 1.5 L Micro: Microbiology 11/19/23 13:40 Stool Stool Lactoferrin - Final 11/19/23 13:40 Stool Enteric Bacteriology - Final 11/19/23 13:40 Stool Clostridioides difficile (PCR) - Final Rhythm Strip Rhythm Strip: Sinus Rhythm Rate: 85 Ectopy: None Imaging Radiology Impression Abdomen/Pelvis CT 11/19/23 08:19 IMPRESSION: No renal or ureteral stone. Electronically Signed: Eugene Carmichael MD at 10:47 EDT ,
[2023-11-20] MEDS: Sodium Phosphate/Na Biphos 21 MMOL in 0.9% Normal Saline (250mL Bag) 250 ML 84 MMOL IV (09:13)
--- NOTE | 2023-11-20 10:47 | CASEMGMT ---
Social Work- SW met with pt dtr; pt was sleeping. SW will revisit when pt is awake. Pt dtr will be in room until 13:00-14:00. ZACKARY Hills
[2023-11-20] MEDS: LEVOTHYROXINE SODIUM 100 MCG VIAL 75 MCG IV (11:18)
[2023-11-20] MEDS: Loperamide 2 MG Capsule PO (11:20)
--- NOTE | 2023-11-20 12:25 | CASEMGMT ---
Addendum entered by Thalia Chacon 11/20/23 13:42: TCU unable to accept referral. GUANAKO met with pt and ptr dtr who state [facility] and second choice and [facility] as third choice. DCA advised to complete referral for [facility]. GUANAKO remains available to follow. ZACKARY Hills Original Note: Social Work- GUANAKO met with pt and dtr to complete update HCPOA forms naming dtr, Renetta, as POA. Pt and Renetta shared pt experience at [facility] and reasons for not wanting to return. PT would like a referral to TCU and will come up with two alternates this afternoon. GUANAKO completed referral to TCU. ZACKARY Hills
[2023-11-20] MEDS: HYDROmorphone Inj 0.2 MG/ML SYRINGE IV ×2 (12:45→20:06)
--- NOTE | 2023-11-20 14:40 | CHAPLAIN ---
Type of Pastoral Visit _x__ Initial Visit ___ Follow-up Visit ___ On-call Visit ___ General Patient Visit ___ Spiritual Assessment ___ Family Conference ___ Bereavement ___ Rapid Response ___ Code Blue ___ Other (describe below) Pastoral Care Referral From _x__ Patient ___ Family ___ Nurse ___ Physician ___ Web Ui Designer ___ Forensic Materials Engineer ___ Other (describe below) Sacrament/Intervention _x__ Active listening ___ Anointing ___ Buddhist ___ Bereavement ___ Communion ___ Nalini exploration ___ ___ Life review _x__ Prayer ___ Reconciliation ___ Sacrament of Sick _x__ Supportive presence ___ Wedding ___ Other (describe below) Pastoral Comments reminded patient of the first encounter with her was when she was life flighted out for transfer; pt did not remember that meeting but discussed what has transpired since that time and the ongoing health issues that she is facing; pt is very expressive at her displeasure with recent stay in a SNF; pt is adamant about not going back to that facility; daughter is in the room and assures pt that there will be a different solution; pt states that she just wants to go home, that she misses her pet, etc.; pt and daughter both give thoughts on what could make this experience in the hospital better which is being able to have visits from her granddaughter; spoke with her RN about this suggestion; pt welcomed a prayer; onoing support offered
--- NOTE | 2023-11-20 15:41 | PCM.PN.HOSP ---
Reason for Visit Reason for Visit: Nausea/vomiting/diarrhea Subjective Subjective Patient still with nausea but no vomiting overnight. Still with loose stool/diarrhea. Infectious workup is negative so I did tell family we will go ahead and start some Imodium to decrease the frequency of this. I did talk to the family about her Synthroid being off with her TSH being greater than 80 and we will currently give her IV thyroid replacement until p.o. intake is more reliable. We also obtain a UA and it does look like she may have a urinary tract infection. Patient is complaining of dysuria today. Objective Data Objective Data Vital Signs: Vital Signs Temp Pulse Resp BP Pulse Ox O2 Del Method 96.7 F L 86 18 112/57 L 99 Room Air 11/20/23 13:00 11/20/23 13:00 11/20/23 13:00 11/20/23 13:00 11/20/23 13:00 11/20/23 13:00 Oxygen Delivery Method Room Air Weight: 112.7 kg Body Mass Index (BMI) 40.7 Intake & Output: Intake and Output for Last 24 Hours 11/18/23 11/19/23 11/20/23 23:59 23:59 23:59 Intake Total 2470 / 2750 2388.5 / 2388.5 Output Total 1000 / 1000 Balance 2470 / 2550 1388.5 / 1388.5 Medical Nutrition Assessment Dietitian: Malnutrition Criteria Met Start: 11/20/23 15:12 Freq: Status: Active Protocol: Document 11/20/23 15:12 SB (Rec: 11/20/23 15:13 SB [id number]) Nutrition Malnutrition Evidence of Malnutrition Exists Yes Malnutrition (severe): Acute Illness/Injury Evidenced By Suboptimal Energy Intake ( Severe),Weight Loss (Severe) Clinical Problem Acute Disease or Injury Related Malnutrition Etiology severe related to inadequate oral intake Signs/Symptoms as evidenced by 15% unintentional weight loss x 1. 5 months and PO meeting <50% of estimated nutrition needs x 3 weeks. Status Active Problem Recommendation Dietitian Recommendations/Changes Recommend advanced diet as tolerated to liberalized regular diet d/t signs and symptoms of malnutrition. Will order 120ml mixed kolb ensure clear TID with medpass. As diet is advanced, will order 120ml vanilla ensure plus high protein 4x daily with medpass. Will adjust ONS, as appetite improves. Reviewed and approved by Aliyah Pulliam, RD, LD. Lab / Micro Data 11/20/23 03:10 11/20/23 03:10 Labs: Laboratory Results - last 24 hr 11/19/23 15:05: Sodium 124 L, Potassium 4.8, Chloride 96 L, Carbon Dioxide 15.0 L, Anion Gap 13, BUN 63 H, Creatinine 4.13 H, Estim Creat Clear Calc 16.77, Est GFR (MDRD) Af Amer 14 L, Est GFR (MDRD) Non-Af 12 L, BUN/Creatinine Ratio 15.3, Glucose 74, Calcium 10.1 11/19/23 20:55: Sodium 127 L, Potassium 4.5, Chloride 98, Carbon Dioxide 15.0 L, Anion Gap 14, BUN 59 H, Creatinine 3.55 H, Estim Creat Clear Calc 19.51, Est GFR (MDRD) Af Amer 17 L, Est GFR (MDRD) Non-Af 14 L, BUN/Creatinine Ratio 16.6, Glucose 63 L, Calcium 9.9 11/19/23 21:00: Urine Color Yellow, Urine Clarity Cloudy, Urine pH 6.0, Ur Specific Kemmerer 1.015, Urine Protein 15 H, Urine Glucose (UA) Normal, Urine Ketones 5 H, Urine Occult Blood 10 H, Urine Nitrite Negative, Urine Bilirubin Negative, Urine Urobilinogen Normal, Ur Leukocyte Esterase 500 H, Urine RBC 0-5 SEEN, Urine WBC >100 SEEN, Ur Squamous Epith Cells 0-5 SEEN, Urine Bacteria 3+, Urine Mucus 0 SEEN, Ur Random Sodium 46 11/20/23 01:33: POC Glucose 77 11/20/23 03:10: WBC 8.4, RBC 3.56 L, Hgb 10.7 L, Hct 31.8 L, MCV 89.3, MCH 30.1, MCHC 33.6, RDW Std Deviation 47.1 H, RDW Coeff of Vicki 14.6, Plt Count 222, MPV 10.2, Immature Gran % (Auto) 1.000 H, Neut % (Auto) 71.9 H, Lymph % (Auto) 14.7 L, [place] % (Auto) 10.0, Eos % (Auto) 1.7, Baso % (Auto) 0.7, Absolute Neuts (auto) 6.1, Absolute Lymphs (auto) 1.24, Nucleated RBC % 0, Sodium 126 L, Potassium 4.0, Chloride 98, Carbon Dioxide 18.0 L, Anion Gap 10, BUN 54 H, Creatinine 3.06 H, Estim Creat Clear Calc 22.64, Est GFR (MDRD) Af Amer 20 L, Est GFR (MDRD) Non-Af 16 L, BUN/Creatinine Ratio 17.6, Glucose 88, Calcium 9.6, Phosphorus 2.4 L, Magnesium 1.5 L Micro: Microbiology 11/20/23 08:20 Stool Stool Occult Blood (AUSTEN) - Final Occult Blood Positive 11/19/23 13:40 Stool Stool Lactoferrin - Final 11/19/23 13:40 Stool Enteric Bacteriology - Final 11/19/23 13:40 Stool Clostridioides difficile (PCR) - Final Rhythm Strip Rhythm Strip: Sinus Rhythm Rate: 85 Ectopy: None Physical Exam Const alert, oriented x3 and no apparent distress; Negative for average body habitus, healthy appearing or well nourished Constitutional Narrative: Ill-appearing but not toxic, morbidly obese, upper middle-aged, white female, lying in bed and appears older than stated age, sleeping upon my arrival with daughter at bedside, patient does awaken for exam, appears fatigued General Appearance: cooperative HEENT normocephalic, head/scalp atraumatic, hearing grossly normal bilaterally and moist oral mucous membranes HEENT Narrative: Mallampati 3, patient is a dentulous, no thrush Eyes PERRL, EOMs intact bilaterally and conjunctivae normal Eyes Narrative: No scleral icterus Neck no lymphadenopathy and supple Neck Narrative: Neck is short and thick, trachea midline Resp normal respiratory effort, no retractions, no use of accessory muscles and clear to auscultation bilaterally Auscultation: Negative for rales, rhonchi or wheezes Cardio regular rate, regular rhythm, S1 normal heart sound, S2 normal heart sound, no murmurs, no rub, no gallops and no clicks GI normal to inspection, nondistended, normoactive bowel sounds and soft to palpation GI Narrative: Mild diffuse tenderness, midline incision is well-healed Extremity no clubbing, cyanosis or edema Skin no jaundice, no petechiae and no mottling Skin Narrative: Skin turgor is normalized with improved hydration status Neuro oriented x3, moves all extremities and no focal motor deficits Neuro Narrative: Marked generalized weakness and debility with no focal deficits Speech: speech normal Psych Psych Narrative: Affect remains flat patient still seems to be depressed and fatigued Assessment & Plan Assessment/Plan (1) Diffuse abdominal pain: (2) Acute renal failure superimposed on chronic kidney disease: (3) Hyperkalemia, diminished renal excretion: (4) Metabolic acidosis: (5) Nausea & vomiting: (6) Diarrhea: (7) Dehydration: (8) Hyponatremia: (9) Hypercalcemia: (10) Elevated lipase: PLAN: Plan Abdominal pain/nausea/vomiting -Etiology remains unclear -CT abdomen pelvis is unremarkable. -TSH is very abnormal at greater than 80 right now and this could contribute--> continue treatment with IV Synthroid -Continue clear liquid diet with appropriate p.o. medications -Continue antiemetics as needed -Low-dose as needed Dilaudid for pain with renal dysfunction -Cont Protonix BID -General Surgery is following-->d/w Seema--> may need EGD if not improved tomorrow -Patient underwent laparotomy with resection of the distal small bowel and right colon on 09/30/[address] Stephenson Diarrhea -Patient reports that she has been having profuse watery diarrhea-->? if related to bowel resection -only 2 bm since admission -Lactoferrin is positive -C. difficile and enteric panel are negative -Will start as needed Imodium Abnormal UA -Patient with dysuria -Suspect UTI -Culture sent -Patient with anaphylaxis taking penicillins so we will avoid penicillins and cephalosporins -Start ciprofloxacin with renally dosing 400 every 18 hours JENNIFER on CKD stage II -Overall baseline renal function appears to be between 0.7 and 0.9 -Appears markedly dehydrated -4.78 on presentation--> down to 3.06 today -Continue to hold home losartan -Continue to hold home Lasix -Continue to hold home Aldactone -Continue aggressive hydration--> continue IV fluids with 2 more liters of lactated Ringer's and recheck BMP at 1930 -UA is consistent with dehydration and shows signs of infection and urine sodium is a mixed picture at this point being 46 Hypomagnesemia/hypophosphatemia -Replacement given for both -Recheck lab in a.m. Severe malnutrition -Dietitian is following -Supplements added -Family will bring in some boost from home that she has liked drinking previously as well -Will liberalize diet once nausea is improved Hyponatremia -Appears to be hypovolemic hyponatremia -Sodium on presentation 120--> up to 126 today -Appears that she is chronically low with a baseline between 128 and 134 -Once more baseline may need further workup Acute metabolic acidosis -Resolving with improved serum bicarb -Continue IV fluids with LR -Likely related to JENNIFER -Repeat lab in a.m. Hyperkalemia -Resolved Elevated lipase -Likely related to the above -No significant abnormalities found on CT consistent with pancreatitis and exam is not consistent with pancreatitis Abnormal TSH with history of hypothyroidism -TSH is markedly elevated -Patient was on incorrect dose of 50 mcg with baseline dose of 125 mcg prior to hospital admission with surgery -Continue IV Synthroid 75 mcg -Repeat free T4 in 72 hours and then hopeful to transition back to oral Synthroid once p.o. status is improved -This may be confounding her digestive issues Mild hypercalcemia -Resolved Generalized weakness and debility due to acute on chronic issues as noted above -PT/OT following -Case management/social work consultation for assistance with discharge planning -Patient will need placement but does not want to return to [facility] Essential hypertension/hyperlipidemia -Continue to hold verapamil -Continue to hold Aldactone -Continue to hold losartan -As needed hydralazine every 6 hours for systolic blood pressure greater than 150 -Continue to hold home statin for now GERD -Continue Protonix 40 mg IV twice daily Recent small bowel resection/partial colectomy -No significant abnormalities on CT -General Surgery is following-appreciate assistance Anxiety/depression/insomnia -Continue home venlafaxine -Continue home trazodone -Continue home BuSpar -Continue home Wellbutrin Morbid obesity -Complicates treatment, prognosis, outcomes -Highly suspect patient may have obstructive sleep apnea Would recommend outpatient polysomnography after discharge DVT prophylaxis -Heparin 5000 units 3 times daily CODE STATUS -DNR CCA okay for short-term intubation as per discussion with family at bedside prior to admission Charges/Coding Visit Charges Inpatient E&M: 19529 Subs Hosp L3
[2023-11-20 19:41] LABS: Anion Gap 12 (5-15); BUN 39 mg/dL (7-18); BUN/Creat Ratio 18.9 RATIO (10-20); Calcium,Total 9.3 mg/dL (8.5-10.1); Chloride 100 mmol/L (98-107); Creatinine, Serum 2.06 mg/dL (0.55-1.02); EST Glomerular Filtration Rate 26 mL/min (>60); Est Glom Filt Rate - Afr Amer 31 mL/min (>60); Estimated Creatinine Clearance 34.08 ml/min; Glucose 68 mg/dL (74-106); Potassium 3.5 mmol/L (3.5-5.1); Sodium Level 129 mmol/L (136-145)
[2023-11-20] MEDS: Loratadine 10 MG Tablet PO (22:02)
[2023-11-20] MEDS: traZODone 100 MG Tablet PO (22:02)
[2023-11-21] VITALS (7 sets, daily range): BP systolic 99–118; BP diastolic 47–62; PULSE 76–86; RESP 16–20; TEMP 36.1–37.2; O2SAT 97–100; BMI 40.7
[2023-11-21] MEDS: Lactated Ringers 1,000 ML 150 ML IV (00:21)
[2023-11-21] MEDS: tiZANidine HCl 2 MG Tablet 4 MG PO ×3 (06:11→22:12)
[2023-11-21] MEDS: Heparin Injection (Vial) 5,000 UNIT/ML VIAL 5000 UNIT SC ×3 (06:11→22:12)
[2023-11-21 06:16] LABS: Hematocrit 27.9 % (37-47); Hemoglobin 9.2 g/dL (12.0-15.0); Mean Corpuscular Volume 90.9 fL (81-99); Mean Platelet Vol. 10.7 fl (6.2-12.0); Platelet Count 179 K/mm3 (150-450); RBC Distribution Width CV 14.7 % (11.6-14.6); RBC Distribution Width SD 49.2 fl (35.1-43.9); Red Blood Count 3.07 M/mm3 (4.2-5.4); White Blood Count 5.2 K/mm3 (4.4-11.0)
[2023-11-21 06:31] LABS: Anion Gap 9 (5-15); BUN 30 mg/dL (7-18); Calcium,Total 8.8 mg/dL (8.5-10.1); Chloride 102 mmol/L (98-107); Creatinine, Serum 1.67 mg/dL (0.55-1.02); EST Glomerular Filtration Rate 33 mL/min (>60); Est Glom Filt Rate - Afr Amer 40 mL/min (>60); Estimated Creatinine Clearance 42.03 ml/min; Glucose 63 mg/dL (74-106); Magnesium 1.8 mg/dL (1.6-2.6); Phosphorus 2.1 mg/dL (2.5-4.9); Potassium 3.4 mmol/L (3.5-5.1); Sodium Level 129 mmol/L (136-145)
--- NOTE | 2023-11-21 08:49 | CASEMGMT ---
Addendum entered by Deborah Núñez 11/21/23 14:03: [facility] declined d/t not bed availability. Deborah Núñez DC Planning Asst. Original Note: Discharge Planning Referral sent via [facility] to [facility]. Deborah Núñez DC Planning Asst.
[2023-11-21] MEDS: Lactated Ringers 1,000 ML 100 ML IV (08:57)
[2023-11-21] MEDS: Potassium Phosphate 40 MM in 0.9% Normal Saline (500mL Bag) 500 ML 62.5 MM IV (09:14)
[2023-11-21] MEDS: Dextrose 5%-Water (1000mL Bag) 1,000 ML 50 ML IV (09:15)
[2023-11-21] MEDS: Venlafaxine XR 150 MG Capsule PO (09:18)
[2023-11-21] MEDS: busPIRone 15 MG TABLET PO ×2 (09:18→22:11)
[2023-11-21] MEDS: Pantoprazole Sodium 40 MG in 0.9% Normal Saline (100mL MB+) 100 ML 330 MG IV ×2 (09:22→22:11)
[2023-11-21] MEDS: LEVOTHYROXINE SODIUM 100 MCG VIAL 75 MCG IV (09:22)
[2023-11-21] MEDS: Ciprofloxacin 400 MG/200 ML BAG 200 MG IV ×2 (10:11→22:11)
--- NOTE | 2023-11-21 14:03 | CASEMGMT ---
Addendum entered by Deborah Núñez 11/25/23 12:10: VM left for [facility] to cancel referral. Deborah Núñez DC Planning Asst. Addendum entered by Deborah Núñez 11/25/23 08:37: VM left for [facility] to check on status of referral. Deborah Núñez DC Planning Asst. Addendum entered by Deborah Núñez 11/24/23 09:35: Call placed to [facility] to check on status of referral. Both Mohini and Ava are out today for the holiday. SW updated. Deborah Núñez DC Planning Asst. Original Note: Discharge Planning Referral sent to [facility]. Deborah Núñez DC Planning Asst.
--- NOTE | 2023-11-21 14:17 | PCM.PN.HOSP ---
Reason for Visit Reason for Visit: Nausea/vomiting/diarrhea Subjective Subjective Patient states she is feeling better today. Still with some intermittent nausea but overall much improved. She would like to try some regular food and see how that goes. We did discuss that her TSH was markedly elevated this could be contributing to this. Objective Data Objective Data Vital Signs: Vital Signs Temp Pulse Resp BP Pulse Ox O2 Del Method 97.9 F 78 18 117/62 99 Room Air 11/21/23 08:30 11/21/23 08:30 11/21/23 08:30 11/21/23 08:30 11/21/23 08:30 11/21/23 08:30 Oxygen Delivery Method Room Air Weight: 112.7 kg Body Mass Index (BMI) 40.7 Intake & Output: Intake and Output for Last 24 Hours 11/19/23 11/20/23 11/21/23 23:59 23:59 23:59 Intake Total 2470 / 2750 3541.0 / 3901.0 2769 / 2769 Output Total 1300 / 1400 400 / 400 Balance 2470 / 2550 2241.0 / 2501.0 2369 / 2369 Medical Nutrition Assessment Dietitian: Malnutrition Criteria Met Start: 11/20/23 15:12 Freq: Status: Active Protocol: Document 11/20/23 15:12 SB (Rec: 11/20/23 15:13 SB [id number]) Nutrition Malnutrition Evidence of Malnutrition Exists Yes Malnutrition (severe): Acute Illness/Injury Evidenced By Suboptimal Energy Intake ( Severe),Weight Loss (Severe) Clinical Problem Acute Disease or Injury Related Malnutrition Etiology severe related to inadequate oral intake Signs/Symptoms as evidenced by 15% unintentional weight loss x 1. 5 months and PO meeting <50% of estimated nutrition needs x 3 weeks. Status Active Problem Recommendation Dietitian Recommendations/Changes Recommend advanced diet as tolerated to liberalized regular diet d/t signs and symptoms of malnutrition. Will order 120ml mixed kolb ensure clear TID with medpass. As diet is advanced, will order 120ml vanilla ensure plus high protein 4x daily with medpass. Will adjust ONS, as appetite improves. Reviewed and approved by Aliyah Pulliam, RD, LD. Lab / Micro Data 11/21/23 05:10 11/21/23 05:10 Labs: Laboratory Results - last 24 hr 11/20/23 19:18: Sodium 129 L, Potassium 3.5, Chloride 100, Carbon Dioxide 17.0 L, Anion Gap 12, BUN 39 H, Creatinine 2.06 H, Estim Creat Clear Calc 34.08, Est GFR (MDRD) Af Amer 31 L, Est GFR (MDRD) Non-Af 26 L, BUN/Creatinine Ratio 18.9, Glucose 68 L, Calcium 9.3 11/21/23 05:10: WBC 5.2, RBC 3.07 L, Hgb 9.2 L, Hct 27.9 L, MCV 90.9, MCH 30.0, MCHC 33.0, RDW Std Deviation 49.2 H, RDW Coeff of Vicki 14.7 H, Plt Count 179, MPV 10.7, Sodium 129 L, Potassium 3.4 L, Chloride 102, Carbon Dioxide 19.0 L, Anion Gap 9, BUN 30 H, Creatinine 1.67 H, Estim Creat Clear Calc 42.03, Est GFR (MDRD) Af Amer 40 L, Est GFR (MDRD) Non-Af 33 L, BUN/Creatinine Ratio 18.0, Glucose 63 L, Calcium 8.8, Phosphorus 2.1 L, Magnesium 1.8 Micro: Microbiology 11/19/23 21:00 Urine, Clean Catch Urine Culture - Preliminary GNR lactose collection systems foreman 11/20/23 08:20 Stool Stool Occult Blood (AUSTEN) - Final Occult Blood Positive 11/19/23 13:40 Stool Stool Lactoferrin - Final 11/19/23 13:40 Stool Enteric Bacteriology - Final 11/19/23 13:40 Stool Clostridioides difficile (PCR) - Final Rhythm Strip Rhythm Strip: Sinus Rhythm Rate: 85 Ectopy: None Physical Exam Const alert, oriented x3 and no apparent distress; Negative for average body habitus, healthy appearing or well nourished Constitutional Narrative: Morbidly obese, upper middle-aged, white female, sitting up in bed watching television, appears comfortable, nontoxic, appears much improved in the last 48 hours, states she would like to eat something General Appearance: cooperative HEENT normocephalic, head/scalp atraumatic, hearing grossly normal bilaterally and moist oral mucous membranes HEENT Narrative: Edentulous, Mallampati 2, no thrush Eyes PERRL, EOMs intact bilaterally and conjunctivae normal Eyes Narrative: No scleral icterus Neck no lymphadenopathy and supple Neck Narrative: Neck is short and thick, trachea midline Resp normal respiratory effort, no retractions, no use of accessory muscles and clear to auscultation bilaterally Auscultation: Negative for rales, rhonchi or wheezes Cardio regular rate, regular rhythm, S1 normal heart sound, S2 normal heart sound, no murmurs, no rub, no gallops and no clicks GI normal to inspection, nondistended, normoactive bowel sounds, soft to palpation and non-tender Extremity no clubbing, cyanosis or edema Skin skin turgor normal, no jaundice, no petechiae and no mottling Neuro oriented x3, moves all extremities and no focal motor deficits Neuro Narrative: Marked generalized weakness and debility with no focal deficits Speech: speech normal Psych affect normal Psych Narrative: Affect is much brighter today, less depressed, eye contact is good and patient interacts appropriately Assessment & Plan Assessment/Plan (1) Diffuse abdominal pain: (2) Acute renal failure superimposed on chronic kidney disease: (3) Hyperkalemia, diminished renal excretion: (4) Metabolic acidosis: (5) Nausea & vomiting: (6) Diarrhea: (7) Dehydration: (8) Hyponatremia: (9) Hypercalcemia: (10) Elevated lipase: PLAN: Plan Abdominal pain/nausea/vomiting -Resolving--> suspect multifactorial with hypothyroidism, UTI, and worsening renal function -Advance diet to regular and monitor for intake -Continue antiemetics as needed -Cont Protonix BID--> if does well today we will transition from IV to p.o. -General Surgery is following -Patient underwent laparotomy with resection of the distal small bowel and right colon on 09/30/[address] Stephenson Diarrhea -Patient only has 1 documented bowel movement daily since she has been here Gram-negative UTI -With improvement in renal function will transition ciprofloxacin to 400 every 12-->day 2/4 -Will narrow as able based on identification and sensitivities JENNIFER on CKD stage II -Overall baseline renal function appears to be between 0.7 and 0.9 -Appears markedly dehydrated -4.78 on presentation--> down to 1.67 -Continue to hold home losartan -Continue to hold home Lasix -Continue to hold home Aldactone -Will complete the current 2 L of fluids and repeat BMP in a.m. -P.o. intake as improved so I think we should be able to rely on her oral intake after these next 2 L Hypomagnesemia/hypophosphatemia/hypokalemia -2 g mag bolus -40 mmol K-Phos IV -Recheck lab in a.m. Severe malnutrition -Dietitian is following -Continue supplements -Start general liberalize diet Hyponatremia -120 on presentation and now up to 129 which is close to her baseline Acute metabolic acidosis -Patient continues to improve with regards to her acidosis as her renal function continues to improve -Repeat lab in a.m. Abnormal TSH with history of hypothyroidism -TSH greater than 80 on presentation -Patient was on incorrect dose of 50 mcg with baseline dose of 125 mcg prior to hospital admission with surgery -Continue IV Synthroid 75 mcg--> will transition back to oral tomorrow as long as p.o. intake is adequate -Repeat free T4 pending for a.m. Generalized weakness and debility due to acute on chronic issues as noted above -PT/OT following -Case management/social work consultation for assistance with discharge planning -Referral sent to [facility] awaiting acceptance -Will need pre-CERT so do not anticipate discharge over the weekend Essential hypertension/hyperlipidemia -Continue to hold verapamil -Continue to hold Aldactone -Continue to hold losartan -As needed hydralazine every 6 hours for systolic blood pressure greater than 150 -Continue to hold home statin for now GERD -Continue Protonix 40 mg IV twice daily--> if p.o. intake is good will transition to oral Protonix tomorrow Recent small bowel resection/partial colectomy -No significant abnormalities on CT -General Surgery is following-appreciate assistance Anxiety/depression/insomnia -Continue home venlafaxine -Continue home trazodone -Continue home BuSpar -Continue home Wellbutrin Morbid obesity -Complicates treatment, prognosis, outcomes -Highly suspect patient may have obstructive sleep apnea Would recommend outpatient polysomnography after discharge DVT prophylaxis -Heparin 5000 units 3 times daily CODE STATUS -DNR CCA okay for short-term intubation as per discussion with family at bedside prior to admission Charges/Coding Visit Charges Inpatient E&M: 63921 Subs Hosp L3
--- NOTE | 2023-11-21 14:50 | PCM.PN.SRG ---
Subjective Subjective Patient states she is doing better today. She states overall she feels better. She states that nausea is actually much improved today. She does state that she was able to eat some chicken for lunch and has not had any issues with nausea or vomiting. Objective Data Objective Data Vital Signs: Vital Signs Temp Pulse Resp BP Pulse Ox O2 Del Method 97.9 F 78 18 117/62 99 Room Air 11/21/23 08:30 11/21/23 08:30 11/21/23 08:30 11/21/23 08:30 11/21/23 08:30 11/21/23 08:30 Oxygen Delivery Method Room Air Weight: 248 lb 7.375 oz Body Mass Index (BMI) 40.7 Intake & Output: Intake and Output for Last 24 Hours 11/19/23 11/20/23 11/21/23 23:59 23:59 23:59 Intake Total 2470 / 2750 3541.0 / 3901.0 2769 / 2769 Output Total 1300 / 1400 400 / 400 Balance 2470 / 2550 2241.0 / 2501.0 2369 / 2369 Medical Nutrition Assessment Dietitian: Malnutrition Criteria Met Start: 11/20/23 15:12 Freq: Status: Active Protocol: Document 11/20/23 15:12 SB (Rec: 11/20/23 15:13 SB [id number]) Nutrition Malnutrition Evidence of Malnutrition Exists Yes Malnutrition (severe): Acute Illness/Injury Evidenced By Suboptimal Energy Intake ( Severe),Weight Loss (Severe) Clinical Problem Acute Disease or Injury Related Malnutrition Etiology severe related to inadequate oral intake Signs/Symptoms as evidenced by 15% unintentional weight loss x 1. 5 months and PO meeting <50% of estimated nutrition needs x 3 weeks. Status Active Problem Recommendation Dietitian Recommendations/Changes Recommend advanced diet as tolerated to liberalized regular diet d/t signs and symptoms of malnutrition. Will order 120ml mixed kolb ensure clear TID with medpass. As diet is advanced, will order 120ml vanilla ensure plus high protein 4x daily with medpass. Will adjust ONS, as appetite improves. Reviewed and approved by Aliyah Pulliam, EARL, LD. Lab / Micro Data 11/21/23 05:10 11/21/23 05:10 Labs: Laboratory Results - last 24 hr 11/20/23 19:18: Sodium 129 L, Potassium 3.5, Chloride 100, Carbon Dioxide 17.0 L, Anion Gap 12, BUN 39 H, Creatinine 2.06 H, Estim Creat Clear Calc 34.08, Est GFR (MDRD) Af Amer 31 L, Est GFR (MDRD) Non-Af 26 L, BUN/Creatinine Ratio 18.9, Glucose 68 L, Calcium 9.3 11/21/23 05:10: WBC 5.2, RBC 3.07 L, Hgb 9.2 L, Hct 27.9 L, MCV 90.9, MCH 30.0, MCHC 33.0, RDW Std Deviation 49.2 H, RDW Coeff of Vicki 14.7 H, Plt Count 179, MPV 10.7, Sodium 129 L, Potassium 3.4 L, Chloride 102, Carbon Dioxide 19.0 L, Anion Gap 9, BUN 30 H, Creatinine 1.67 H, Estim Creat Clear Calc 42.03, Est GFR (MDRD) Af Amer 40 L, Est GFR (MDRD) Non-Af 33 L, BUN/Creatinine Ratio 18.0, Glucose 63 L, Calcium 8.8, Phosphorus 2.1 L, Magnesium 1.8 Micro: Microbiology 11/19/23 21:00 Urine, Clean Catch Urine Culture - Preliminary GNR lactose sales project manager 11/20/23 08:20 Stool Stool Occult Blood (AUSTEN) - Final Occult Blood Positive 11/19/23 13:40 Stool Stool Lactoferrin - Final 11/19/23 13:40 Stool Enteric Bacteriology - Final 11/19/23 13:40 Stool Clostridioides difficile (PCR) - Final Rhythm Strip Rhythm Strip: Sinus Rhythm Rate: 85 Ectopy: None Physical Exam Const Constitutional Narrative: She is alert and oriented x 3. She is in no acute distress. Abdomen is soft nontender nondistended. Assessment & Plan Assessment/Plan (1) Nausea & vomiting: PLAN: The patient is a 63-year-old female with recent issues of nausea and vomiting. She states that this is going been going on for about 5 weeks. It was found that she was not receiving the correct dose of Synthroid recently. There was question of her possibly needing an EGD if her symptoms did not improve. She seems to be clinically improving in terms of her nausea although she did state that she also believes there may be some component of difficulty swallowing. At this point I would recommend continuing Synthroid. Will continue to evaluate level of nausea and questionable dysphagia complaint to determine if EGD is warranted during admission. This could potentially be performed Friday if necessary. Will continue to follow. Charges/Coding Visit Charges Inpatient E&M: 84694 Subs Hosp L2
[2023-11-21] MEDS: Magnesium Sulfate 2 GM in Dextrose 5%-Water (100mL Bag) 100 ML IV (16:56)
[2023-11-21] MEDS: HYDROmorphone Inj 0.2 MG/ML SYRINGE IV ×2 (17:02→22:12)
[2023-11-21] MEDS: Loratadine 10 MG Tablet PO (22:11)
[2023-11-21] MEDS: traZODone 100 MG Tablet PO (22:12)
[2023-11-22 03:00] VITALS: BP 91/57; PULSE 75; RESP 16; TEMP 37; O2SAT 100
[2023-11-22] MEDS: 0.9% Saline Lock 10 ML Syringe IV ×3 (05:56→12:50)
[2023-11-22] MEDS: Heparin Injection (Vial) 5,000 UNIT/ML VIAL 5000 UNIT SC ×3 (05:56→21:54)
[2023-11-22] MEDS: tiZANidine HCl 2 MG Tablet 4 MG PO ×3 (05:56→21:57)
[2023-11-22 06:00] VITALS: BMI 40.8
[2023-11-22 08:16] LABS: Hematocrit 26.8 % (37-47); Hemoglobin 8.7 g/dL (12.0-15.0); Mean Corp Hgb Conc 32.5 g/dL (32-36); Mean Corpuscular Hgb 29.8 pg (27.0-32.0); Mean Corpuscular Volume 91.8 fL (81-99); Mean Platelet Vol. 11.1 fl (6.2-12.0); Platelet Count 172 K/mm3 (150-450); RBC Distribution Width CV 14.6 % (11.6-14.6); RBC Distribution Width SD 49.3 fl (35.1-43.9); Red Blood Count 2.92 M/mm3 (4.2-5.4); White Blood Count 4.9 K/mm3 (4.4-11.0)
[2023-11-22] MEDS: Ciprofloxacin 400 MG/200 ML BAG 200 MG IV ×2 (09:06→21:58)
[2023-11-22] MEDS: Pantoprazole Sodium 40 MG in 0.9% Normal Saline (100mL MB+) 100 ML 330 MG IV (09:06)
[2023-11-22 09:09] VITALS: BP 78/46; PULSE 68; RESP 16; TEMP 36.7; O2SAT 99
[2023-11-22] MEDS: busPIRone 15 MG TABLET PO ×2 (09:35→21:56)
[2023-11-22] MEDS: Venlafaxine XR 150 MG Capsule PO (09:36)
[2023-11-22 09:42] LABS: Anion Gap 7 (5-15); BUN 17 mg/dL (7-18); BUN/Creat Ratio 14.7 RATIO (10-20); Calcium,Total 8.4 mg/dL (8.5-10.1); Chloride 101 mmol/L (98-107); Creatinine, Serum 1.16 mg/dL (0.55-1.02); EST Glomerular Filtration Rate 50 mL/min (>60); Est Glom Filt Rate - Afr Amer 60 mL/min (>60); Estimated Creatinine Clearance 60.64 ml/min; Glucose 76 mg/dL (74-106); Phosphorus 2.9 mg/dL (2.5-4.9); Potassium 3.9 mmol/L (3.5-5.1); Sodium Level 128 mmol/L (136-145)
[2023-11-22] MEDS: SimETHICONE 80 MG Chewable Tablet PO ×4 (10:38→21:56)
[2023-11-22] MEDS: 0.9% Normal Saline (1000mL) 1,000 ML 999 ML IV (10:39)
--- NOTE | 2023-11-22 11:37 | PCM.PN.HOSP ---
Reason for Visit Reason for Visit: Nausea/vomiting/diarrhea Subjective Subjective Patient is complaining of a little bit of left lower quadrant pain and gassiness. We did give her some Gas-X. She is eating some she states her appetite is not great. She does not like Ensure so she refuses to drink those. She did indicate she would try some Magic cup so we will start Magic cup 3 times a day of chocolate. Family is also bringing boost in. We did discuss eating small frequent meals throughout the day. Objective Data Objective Data Vital Signs: Vital Signs Temp Pulse Resp BP Pulse Ox O2 Del Method 98.0 F 68 16 78/46 L 99 Room Air 11/22/23 09:09 11/22/23 09:09 11/22/23 09:09 11/22/23 09:09 11/22/23 09:09 11/22/23 09:09 Oxygen Delivery Method Room Air Weight: 113.1 kg Body Mass Index (BMI) 40.8 Intake & Output: Intake and Output for Last 24 Hours 11/20/23 11/21/23 11/22/23 23:59 23:59 23:59 Intake Total 3541.0 / 3901.0 4624.0033 / 4624.0033 310 / 310 Output Total 1300 / 1400 700 / 900 500 / 500 Balance 2241.0 / 2501.0 3924.0033 / 3724.0033 -190 / -190 Medical Nutrition Assessment Dietitian: Malnutrition Criteria Met Start: 11/20/23 15:12 Freq: Status: Active Protocol: Document 11/20/23 15:12 SB (Rec: 11/20/23 15:13 SB [id number]) Nutrition Malnutrition Evidence of Malnutrition Exists Yes Malnutrition (severe): Acute Illness/Injury Evidenced By Suboptimal Energy Intake ( Severe),Weight Loss (Severe) Clinical Problem Acute Disease or Injury Related Malnutrition Etiology severe related to inadequate oral intake Signs/Symptoms as evidenced by 15% unintentional weight loss x 1. 5 months and PO meeting <50% of estimated nutrition needs x 3 weeks. Status Active Problem Recommendation Dietitian Recommendations/Changes Recommend advanced diet as tolerated to liberalized regular diet d/t signs and symptoms of malnutrition. Will order 120ml mixed kolb ensure clear TID with medpass. As diet is advanced, will order 120ml vanilla ensure plus high protein 4x daily with medpass. Will adjust ONS, as appetite improves. Reviewed and approved by Aliyah Pulliam, RD, LD. Lab / Micro Data 11/22/23 07:12 11/22/23 07:12 Labs: Laboratory Results - last 24 hr 11/22/23 07:12: WBC 4.9, RBC 2.92 L, Hgb 8.7 L, Hct 26.8 L, MCV 91.8, MCH 29.8, MCHC 32.5, RDW Std Deviation 49.3 H, RDW Coeff of Vicki 14.6, Plt Count 172, MPV 11.1, Sodium 128 L, Potassium 3.9, Chloride 101, Carbon Dioxide 20.0 L, Anion Gap 7, BUN 17, Creatinine 1.16 H, Estim Creat Clear Calc 60.64, Est GFR (MDRD) Af Amer 60, Est GFR (MDRD) Non-Af 50 L, BUN/Creatinine Ratio 14.7, Glucose 76, Calcium 8.4 L, Phosphorus 2.9, Magnesium 2.0 Micro: Microbiology 11/19/23 21:00 Urine, Clean Catch Urine Culture - Final Klebsiella pneumoniae sp pneum 11/20/23 08:20 Stool Stool Occult Blood (AUSTEN) - Final Occult Blood Positive 11/19/23 13:40 Stool Stool Lactoferrin - Final 11/19/23 13:40 Stool Enteric Bacteriology - Final 11/19/23 13:40 Stool Clostridioides difficile (PCR) - Final Rhythm Strip Rhythm Strip: Sinus Rhythm Rate: 85 Ectopy: None Physical Exam Const alert, oriented x3 and no apparent distress; Negative for average body habitus, healthy appearing or well nourished Constitutional Narrative: Morbidly obese, upper middle-aged, white female, sitting up in bed with nursing and speech therapy at the bedside, appears well, nontoxic appearing, appears if she is feeling much better overall General Appearance: cooperative HEENT normocephalic, head/scalp atraumatic and moist oral mucous membranes HEENT Narrative: Mallampati 3, edentulous, no thrush Resp normal respiratory effort, no retractions, no use of accessory muscles and clear to auscultation bilaterally Auscultation: Negative for rales, rhonchi or wheezes Cardio regular rate, regular rhythm, S1 normal heart sound, S2 normal heart sound, no murmurs, no rub, no gallops and no clicks GI normal to inspection, nondistended, normoactive bowel sounds and soft to palpation GI Narrative: Mild tenderness left lower quadrant Extremity no clubbing, cyanosis or edema Neuro oriented x3, moves all extremities and no focal motor deficits Neuro Narrative: Marked generalized weakness and debility with no focal deficits Speech: speech normal Psych affect normal Psych Narrative: Interacts appropriately, very pleasant Assessment & Plan Assessment/Plan (1) Diffuse abdominal pain: (2) Acute renal failure superimposed on chronic kidney disease: (3) Hyperkalemia, diminished renal excretion: (4) Metabolic acidosis: (5) Nausea & vomiting: (6) Diarrhea: (7) Dehydration: (8) Hyponatremia: (9) Hypercalcemia: (10) Elevated lipase: PLAN: Plan Abdominal pain/nausea/vomiting -Resolved -suspect was multifactorial with hypothyroidism, UTI, and worsening renal function -Advance diet to regular and monitor for intake -Transition to p.o. Protonix daily -General Surgery is following -Patient underwent laparotomy with resection of the distal small bowel and right colon on 09/30/[address] Stephenson -Depending on patient may proceed with EGD on Friday Diarrhea -Patient only has 1 documented bowel movement daily since she has been here Klebsiella pneumoniae UTI -Continue Cipro IV 400 twice daily day 3 of 4 -Dysuria has resolved JENNIFER on CKD stage II -Overall baseline renal function appears to be between 0.7 and 0.9 -Appears markedly dehydrated -4.78 on presentation--> down to 1.16 -Continue to hold home losartan -Continue to hold home Lasix -Continue to hold home Aldactone -Discontinue IV fluids and monitor for oral intake Hypotension -Unclear if this is accurate -Patient has good radial pulses and has no symptoms that would be consistent with hypotension -Continue to monitor -Continue to hold home antihypertensives Hypomagnesemia/hypophosphatemia/hypokalemia - resolved Severe malnutrition -Dietitian is following -Continue supplements but transition to Magic cup as patient does not like Ensure and refuses to drink them -Continue liberalize diet Hyponatremia - remains stable Acute metabolic acidosis -Almost resolved Abnormal TSH with history of hypothyroidism -TSH greater than 80 on presentation -Patient was on incorrect dose of 50 mcg with baseline dose of 125 mcg prior to hospital admission with surgery -Continue IV Synthroid 75 mcg--> DC IV Synthroid and start oral Synthroid tomorrow Generalized weakness and debility due to acute on chronic issues as noted above -PT/OT following -Case management/social work consultation for assistance with discharge planning -Referral sent to [facility] awaiting acceptance -Will need pre-CERT so do not anticipate discharge over the weekend Essential hypertension/hyperlipidemia -Continue to hold verapamil -Continue to hold Aldactone -Continue to hold losartan -As needed hydralazine every 6 hours for systolic blood pressure greater than 150 -Continue to hold home statin for now GERD -D/C IV Protonix and start p.o. 40 daily Recent small bowel resection/partial colectomy -No significant abnormalities on CT -General Surgery is following-appreciate assistance Anxiety/depression/insomnia -Continue home venlafaxine -Continue home trazodone -Continue home BuSpar -Continue home Wellbutrin Morbid obesity -Complicates treatment, prognosis, outcomes -Highly suspect patient may have obstructive sleep apnea Would recommend outpatient polysomnography after discharge DVT prophylaxis -Heparin 5000 units 3 times daily CODE STATUS -DNR CCA okay for short-term intubation as per discussion with family at bedside prior to admission Charges/Coding Visit Charges Inpatient E&M: 26509 Subs Hosp L2
--- NOTE | 2023-11-22 12:01 | PN.SURG_ITS ---
Subjective Subjective Patient states that nausea continues to improve and seems to be essentially resolved at this point. She also states that her swallowing is improving as well. Otherwise she offered no new issues or complaints to speak of. Objective Data Objective Data Vital Signs: Vital Signs Temp Pulse Resp BP Pulse Ox O2 Del Method 98.0 F 68 16 78/46 L 99 Room Air 11/22/23 09:09 11/22/23 09:09 11/22/23 09:09 11/22/23 09:09 11/22/23 09:09 11/22/23 09:09 Oxygen Delivery Method Room Air Weight: 249 lb 5.485 oz Body Mass Index (BMI) 40.8 Intake & Output: Intake and Output for Last 24 Hours 11/20/23 11/21/23 11/22/23 23:59 23:59 23:59 Intake Total 3541.0 / 3901.0 4624.0033 / 4624.0033 310 / 310 Output Total 1300 / 1400 700 / 900 500 / 500 Balance 2241.0 / 2501.0 3924.0033 / 3724.0033 -190 / -190 Medical Nutrition Assessment Dietitian: Malnutrition Criteria Met Start: 11/20/23 15:12 Freq: Status: Active Protocol: Document 11/20/23 15:12 SB (Rec: 11/20/23 15:13 SB [id number]) Nutrition Malnutrition Evidence of Malnutrition Exists Yes Malnutrition (severe): Acute Illness/Injury Evidenced By Suboptimal Energy Intake ( Severe),Weight Loss (Severe) Clinical Problem Acute Disease or Injury Related Malnutrition Etiology severe related to inadequate oral intake Signs/Symptoms as evidenced by 15% unintentional weight loss x 1. 5 months and PO meeting <50% of estimated nutrition needs x 3 weeks. Status Active Problem Recommendation Dietitian Recommendations/Changes Recommend advanced diet as tolerated to liberalized regular diet d/t signs and symptoms of malnutrition. Will order 120ml mixed kolb ensure clear TID with medpass. As diet is advanced, will order 120ml vanilla ensure plus high protein 4x daily with medpass. Will adjust ONS, as appetite improves. Reviewed and approved by Aliyah Pulliam RD, LD. Lab / Micro Data 11/22/23 07:12 11/22/23 07:12 Labs: Laboratory Results - last 24 hr 11/22/23 07:12: WBC 4.9, RBC 2.92 L, Hgb 8.7 L, Hct 26.8 L, MCV 91.8, MCH 29.8, MCHC 32.5, RDW Std Deviation 49.3 H, RDW Coeff of Vicki 14.6, Plt Count 172, MPV 11.1, Sodium 128 L, Potassium 3.9, Chloride 101, Carbon Dioxide 20.0 L, Anion Gap 7, BUN 17, Creatinine 1.16 H, Estim Creat Clear Calc 60.64, Est GFR (MDRD) Af Amer 60, Est GFR (MDRD) Non-Af 50 L, BUN/Creatinine Ratio 14.7, Glucose 76, C alcium 8.4 L, Phosphorus 2.9, Magnesium 2.0 Micro: Microbiology 11/19/23 21:00 Urine, Clean Catch Urine Culture - Final Klebsiella pneumoniae sp pneum 11/20/23 08:20 Stool Stool Occult Blood (AUSTEN) - Final Occult Blood Positive 11/19/23 13:40 Stool Stool Lactoferrin - Final 11/19/23 13:40 Stool Enteric Bacteriology - Final 11/19/23 13:40 Stool Clostridioides difficile (PCR) - Final Rhythm Strip Rhythm Strip: Sinus Rhythm Rate: 85 Ectopy: None Physical Exam Const oriented x3 and no apparent distress Resp normal respiratory effort GI normal to inspection, nondistended, normoactive bowel sounds Assessment & Plan Assessment/Plan (1) Nausea & vomiting: PLAN: Plan PLAN: The patient is a 63-year-old female with recent issues of nausea and vomiting. She states that this is going been going on for about 5 weeks. It was found that she was not receiving the correct dose of Synthroid recently. There was question of her possibly needing an EGD if her symptoms did not improve. She seems to be clinically improving in terms of her nausea although she did state that she also believes there may be some component of difficulty swallowing. I suspect her cause for nausea and vomiting is likely multifactorial. At this point I would recommend continuing Synthroid. Will continue to evaluate level of nausea and questionable dysphagia complaint to determine if EGD is warranted during admission. This could potentially be performed Friday if necessary. Will continue to follow but suspect she may not even need EGD as all of her symptoms seem to be steadily resolving. Will continue to monitor and follow closely. Charges/Coding Visit Charges Inpatient E&M: 66969 Subs Hosp L2
[2023-11-22] MEDS: LEVOTHYROXINE SODIUM 100 MCG VIAL 75 MCG IV (12:50)
[2023-11-22 12:56] VITALS: BP 98/45; PULSE 75; RESP 16; TEMP 36.7; O2SAT 99
[2023-11-22 18:18] VITALS: BP 81/48; PULSE 63; RESP 16; TEMP 36.4; O2SAT 100
[2023-11-22] MEDS: oxyCODONE 5 MG Tablet 2.5 MG PO (18:43)
[2023-11-22 21:49] VITALS: BP 100/52; PULSE 67; RESP 16; TEMP 35.9; O2SAT 99
[2023-11-22] MEDS: Loratadine 10 MG Tablet PO (21:56)
[2023-11-22] MEDS: traZODone 100 MG Tablet PO (21:56)
[2023-11-23 03:42] VITALS: BP 99/52; PULSE 61; RESP 16; TEMP 35.7; O2SAT 97
[2023-11-23 04:05] VITALS: BMI 43.2
[2023-11-23] MEDS: tiZANidine HCl 2 MG Tablet 4 MG PO ×3 (05:56→21:10)
[2023-11-23] MEDS: Heparin Injection (Vial) 5,000 UNIT/ML VIAL 5000 UNIT SC ×3 (05:56→21:09)
[2023-11-23] MEDS: Levothyroxine 125 MCG Tablet PO (05:56)
[2023-11-23 07:17] LABS: Hemoglobin 8.7 g/dL (12.0-15.0); Mean Corp Hgb Conc 32.2 g/dL (32-36); Mean Corpuscular Hgb 29.6 pg (27.0-32.0); Mean Corpuscular Volume 91.8 fL (81-99); Mean Platelet Vol. 11.1 fl (6.2-12.0); Platelet Count 159 K/mm3 (150-450); RBC Distribution Width CV 14.9 % (11.6-14.6); Red Blood Count 2.94 M/mm3 (4.2-5.4); White Blood Count 4.7 K/mm3 (4.4-11.0)
[2023-11-23 07:45] LABS: Anion Gap 7 (5-15); BUN 11 mg/dL (7-18); BUN/Creat Ratio 9.2 RATIO (10-20); Calcium,Total 8.3 mg/dL (8.5-10.1); Chloride 102 mmol/L (98-107); EST Glomerular Filtration Rate 48 mL/min (>60); Est Glom Filt Rate - Afr Amer 58 mL/min (>60); Estimated Creatinine Clearance 60.56 ml/min; Glucose 85 mg/dL (74-106); Potassium 3.6 mmol/L (3.5-5.1); Sodium Level 130 mmol/L (136-145); T4 Free Direct 0.79 ng/dL (0.76-1.46)
[2023-11-23] MEDS: Ciprofloxacin 400 MG/200 ML BAG 200 MG IV ×2 (09:09→21:09)
[2023-11-23] MEDS: 0.9% Saline Lock 10 ML Syringe IV ×2 (09:09→21:16)
[2023-11-23] MEDS: busPIRone 15 MG TABLET PO ×2 (09:11→21:09)
[2023-11-23] MEDS: Venlafaxine XR 150 MG Capsule PO (09:11)
[2023-11-23] MEDS: Pantoprazole Sodium 40 MG Tablet PO (09:12)
[2023-11-23] MEDS: SimETHICONE 80 MG Chewable Tablet PO ×4 (09:12→21:10)
[2023-11-23 09:19] VITALS: BP 92/48; PULSE 63; RESP 14; TEMP 36.5; O2SAT 99
[2023-11-23] MEDS: Lactated Ringers 1,000 ML 999 ML IV (10:30)
--- NOTE | 2023-11-23 12:33 | PN.SURG_ITS ---
Subjective Subjective Patient continues to improve. She denies any nausea or vomiting or dysphagia at this point. She seems to be tolerating diet without difficulty Objective Data Objective Data Vital Signs: Vital Signs Temp Pulse Resp BP Pulse Ox O2 Del Method 97.7 F L 63 14 92/48 L 99 Room Air 11/23/23 09:19 11/23/23 09:19 11/23/23 09:19 11/23/23 09:19 11/23/23 09:19 11/23/23 09:19 Oxygen Delivery Method Room Air Weight: 263 lb 14.293 oz Body Mass Index (BMI) 43.2 Intake & Output: Intake and Output for Last 24 Hours 11/21/23 11/22/23 11/23/23 23:59 23:59 23:59 Intake Total 4624.0033 / 4624.0033 1830 / 1830 1440 / 1440 Output Total 700 / 900 500 / 500 400 / 400 Balance 3924.0033 / 3724.0033 1330 / 1330 1040 / 1040 Medical Nutrition Assessment Dietitian: Malnutrition Criteria Met Start: 11/20/23 15:12 Freq: Status: Active Protocol: Document 11/20/23 15:12 SB (Rec: 11/20/23 15:13 SB [id number]) Nutrition Malnutrition Evidence of Malnutrition Exists Yes Malnutrition (severe): Acute Illness/Injury Evidenced By Suboptimal Energy Intake ( Severe),Weight Loss (Severe) Clinical Problem Acute Disease or Injury Related Malnutrition Etiology severe related to inadequate oral intake Signs/Symptoms as evidenced by 15% unintentional weight loss x 1. 5 months and PO meeting <50% of estimated nutrition needs x 3 weeks. Status Active Problem Recommendation Dietitian Recommendations/Changes Recommend advanced diet as tolerated to liberalized regular diet d/t signs and symptoms of malnutrition. Will order 120ml mixed kolb ensure clear TID with medpass. As diet is advanced, will order 120ml vanilla ensure plus high protein 4x daily with medpass. Will adjust ONS, as appetite improves. Reviewed and approved by Aliyah Pulliam RD, LD. Lab / Micro Data 11/23/23 06:32 11/23/23 06:32 Labs: Laboratory Results - last 24 hr 11/23/23 06:32: WBC 4.7, RBC 2.94 L, Hgb 8.7 L, Hct 27.0 L, MCV 91.8, MCH 29.6, MCHC 32.2, RDW Std Deviation 50.0 H, RDW Coeff of Vicki 14.9 H, Plt Count 159, MPV 11.1, Sodium 130 L, Potassium 3.6, Chloride 102, Carbon Dioxide 21.0, Anion Gap 7, BUN 11, Creatinine 1.20 H, Estim Creat Clear Calc 60.56, Est GFR (MDRD) Af Amer 58 L, Est GFR (MDRD) Non-Af 48 L, BUN/Creatinine Ratio 9.2 L, Glucose 85, C alcium 8.3 L, Free T4 0.79 Micro: Microbiology 11/19/23 21:00 Urine, Clean Catch Urine Culture - Final Klebsiella pneumoniae sp pneum 11/20/23 08:20 Stool Stool Occult Blood (AUSTEN) - Final Occult Blood Positive 11/19/23 13:40 Stool Stool Lactoferrin - Final 11/19/23 13:40 Stool Enteric Bacteriology - Final 11/19/23 13:40 Stool Clostridioides difficile (PCR) - Final Rhythm Strip Rhythm Strip: Sinus Rhythm Rate: 85 Ectopy: None Physical Exam Const oriented x3 and no apparent distress GI normal to inspection, nondistended, normoactive bowel sounds, soft to palpation and non-tender Assessment & Plan Assessment/Plan (1) Nausea & vomiting: PLAN: Plan PLAN: The patient is a 63-year-old female with recent issues of nausea and vomiting. She states that this is going been going on for about 5 weeks. It was found that she was not receiving the correct dose of Synthroid recently. There was question of her possibly needing an EGD if her symptoms did not improve. I suspect her cause for nausea and vomiting is likely multifactorial. At this point her nausea and vomiting have completely resolved. She has been tolerating diet. I do not feel that EGD is warranted at this point. Hospitalist is in agreement as well. Continue diet as tolerated. Will continue to follow.
[2023-11-23 14:08] VITALS: BP 108/53; PULSE 63; RESP 14; TEMP 36.4; O2SAT 99
--- NOTE | 2023-11-23 14:09 | PN.HOSP_ITS ---
Reason for Visit Reason for Visit: Nausea/vomiting/diarrhea Subjective Subjective Patient p.o. intake is still been poor and her participation with therapy has not been great. Sister at bedside today and we discussed the importance of trying to get adequate nutrition and participating in therapy with regards to goals of getting home. The patient did voice understanding but also had a lot of excuses as to why she did not want to do these things. Her sister states that she will try to get her do as much as possible and understand the importance of this. No specific complaints at this time. Objective Data Objective Data Vital Signs: Vital Signs Temp Pulse Resp BP Pulse Ox O2 Del Method 97.6 F L 63 14 108/53 L 99 Room Air 11/23/23 14:08 11/23/23 14:08 11/23/23 14:08 11/23/23 14:08 11/23/23 14:08 11/23/23 14:08 Oxygen Delivery Method Room Air Weight: 119.7 kg Body Mass Index (BMI) 43.2 Intake & Output: Intake and Output for Last 24 Hours 11/21/23 11/22/23 11/23/23 23:59 23:59 23:59 Intake Total 4624.0033 / 4624.0033 1830 / 1830 1440 / 1440 Output Total 700 / 900 500 / 500 400 / 400 Balance 3924.0033 / 3724.0033 1330 / 1330 1040 / 1040 Medical Nutrition Assessment Dietitian: Malnutrition Criteria Met Start: 11/20/23 15:12 Freq: Status: Active Protocol: Document 11/20/23 15:12 SB (Rec: 11/20/23 15:13 SB [id number]) Nutrition Malnutrition Evidence of Malnutrition Exists Yes Malnutrition (severe): Acute Illness/Injury Evidenced By Suboptimal Energy Intake ( Severe),Weight Loss (Severe) Clinical Problem Acute Disease or Injury Related Malnutrition Etiology severe related to inadequate oral intake Signs/Symptoms as evidenced by 15% unintentional weight loss x 1. 5 months and PO meeting <50% of estimated nutrition needs x 3 weeks. Status Active Problem Recommendation Dietitian Recommendations/Changes Recommend advanced diet as tolerated to liberalized regular diet d/t signs and symptoms of malnutrition. Will order 120ml mixed kolb ensure clear TID with medpass. As diet is advanced, will order 120ml vanilla ensure plus high protein 4x daily with medpass. Will adjust ONS, as appetite improves. Reviewed and approved by Aliyah Pulliam, EARL, LD. Lab / Micro Data 11/23/23 06:32 11/23/23 06:32 Labs: Laboratory Results - last 24 hr 11/23/23 06:32: WBC 4.7, RBC 2.94 L, Hgb 8.7 L, Hct 27.0 L, MCV 91.8, MCH 29.6, MCHC 32.2, RDW Std Deviation 50.0 H, RDW Coeff of Vicki 14.9 H, Plt Count 159, MPV 11.1, Sodium 130 L, Potassium 3.6, Chloride 102, Carbon Dioxide 21.0, Anion Gap 7, BUN 11, Creatinine 1.20 H, Estim Creat Clear Calc 60.56, Est GFR (MDRD) Af Amer 58 L, Est GFR (MDRD) Non-Af 48 L, BUN/Creatinine Ratio 9.2 L, Glucose 85, C alcium 8.3 L, Free T4 0.79 Micro: Microbiology 11/19/23 21:00 Urine, Clean Catch Urine Culture - Final Klebsiella pneumoniae sp pneum 11/20/23 08:20 Stool Stool Occult Blood (AUSTEN) - Final Occult Blood Positive 11/19/23 13:40 Stool Stool Lactoferrin - Final 11/19/23 13:40 Stool Enteric Bacteriology - Final 11/19/23 13:40 Stool Clostridioides difficile (PCR) - Final Rhythm Strip Rhythm Strip: Sinus Rhythm Rate: 85 Ectopy: None Physical Exam Const alert, oriented x3 and no apparent distress; Negative for average body habitus, healthy appearing or well nourished Constitutional Narrative: Morbidly obese, upper middle-aged, white female, sitting up in bed, sister at bedside, nursing at bedside, appears comfortable, nontoxic General Appearance: cooperative HEENT normocephalic, head/scalp atraumatic and moist oral mucous membranes HEENT Narrative: Edentulous, Mallampati 3, no thrush Resp normal respiratory effort, no retractions, no use of accessory muscles and clear to auscultation bilaterally Auscultation: Negative for rales, rhonchi or wheezes Cardio regular rate, regular rhythm, S1 normal heart sound, S2 normal heart sound, no murmurs, no rub, no gallops and no clicks GI normal to inspection, nondistended, normoactive bowel sounds, soft to palpation and non-tender Extremity no clubbing, cyanosis or edema Neuro oriented x3 and moves all extremities Neuro Narrative: Marked generalized weakness and debility with no focal deficits Speech: speech normal Psych affect normal Psych Narrative: Interacts appropriately, very pleasant Assessment & Plan Assessment/Plan (1) Diffuse abdominal pain: (2) Acute renal failure superimposed on chronic kidney disease: (3) Hyperkalemia, diminished renal excretion: (4) Metabolic acidosis: (5) Nausea & vomiting: (6) Diarrhea: (7) Dehydration: (8) Hyponatremia: (9) Hypercalcemia: (10) Elevated lipase: PLAN: Plan Abdominal pain/nausea/vomiting -Resolved -suspect was multifactorial with hypothyroidism, UTI, and worsening renal function -Advance diet to regular and monitor for intake -Transition to p.o. Protonix daily -General Surgery is following -Patient underwent laparotomy with resection of the distal small bowel and right colon on 09/30/[address] Stephenson -Depending on patient may proceed with EGD on Friday Diarrhea -Resolved Klebsiella pneumoniae UTI -Continue Cipro IV 400 twice daily-today is day day 4 of 4 and antibiotics are to be completed JENNIFER on CKD stage II -Overall baseline renal function appears to be between 0.7 and 0.9 -Appears markedly dehydrated -4.78 on presentation--> down to 1.2 -Continue to hold home losartan -Continue to hold home Lasix -Continue to hold home Aldactone Hypotension -Resolved Severe malnutrition -Dietitian is following -Continue supplements but transition to Magic cup as patient does not like Ensure and refuses to drink them -Continue liberalize diet Hyponatremia - remains stable and at baseline Acute metabolic acidosis -Resolved Abnormal TSH with history of hypothyroidism -TSH greater than 80 on presentation -Patient was on incorrect dose of 50 mcg with baseline dose of 125 mcg prior to hospital admission with surgery -Continue Synthroid 125 mcg orally Generalized weakness and debility due to acute on chronic issues as noted above -PT/OT following -Case management/social work consultation for assistance with discharge planning -Referral sent to [facility] awaiting acceptance -Will need pre-CERT so do not anticipate discharge over the weekend Essential hypertension/hyperlipidemia -Continue to hold verapamil -Continue to hold Aldactone -Continue to hold losartan -As needed hydralazine every 6 hours for systolic blood pressure greater than 150 -Continue to hold home statin for now GERD -Continue p.o. Protonix Recent small bowel resection/partial colectomy -No significant abnormalities on CT -General Surgery is following-appreciate assistance Anxiety/depression/insomnia -Continue home venlafaxine -Continue home trazodone -Continue home BuSpar -Continue home Wellbutrin Morbid obesity -Complicates treatment, prognosis, outcomes -Highly suspect patient may have obstructive sleep apnea Would recommend outpatient polysomnography after discharge DVT prophylaxis -Heparin 5000 units 3 times daily CODE STATUS -DNR CCA okay for short-term intubation as per discussion with family at bedside prior to admission Charges/Coding Visit Charges Inpatient E&M: 27672 Subs Hosp L2
[2023-11-23 21:04] VITALS: BP 102/62; PULSE 64; RESP 16; TEMP 35.8; O2SAT 98
[2023-11-23] MEDS: traZODone 100 MG Tablet PO (21:09)
[2023-11-23] MEDS: Loratadine 10 MG Tablet PO (21:10)
[2023-11-24 02:55] VITALS: BMI 43.1
[2023-11-24 03:21] VITALS: BP 107/64; PULSE 64; RESP 18; TEMP 35.8; O2SAT 99
--- NOTE | 2023-11-24 04:47 | NURSING ---
Hospitalist note reads, Depending on patient may proceed with EGD on Friday. Dr. Weller's note states he doesn't feel patient would need to proceed with this. Out of an abundance of caution, pt placed in NPO status at 0000 on 11/23 given uncertainty of plan for procedure. Pt expressed dissatisfaction to primary RN with being made NPO. This RN to room to discuss NPO status with patient. Patient states she spoke with Dr. Weller who felt she didn't need to have a scope. She states she wasn't going to sign for it. Explained to patient that if the plan changed and she ended up having a scope, it may need delayed in light of PO intake. Considering all that was discussed, NPO status removed as pt is adamant that the plan is for her not to have a scope today. Updated pt primary RN.
[2023-11-24] MEDS: Heparin Injection (Vial) 5,000 UNIT/ML VIAL 5000 UNIT SC ×3 (05:35→20:36)
[2023-11-24] MEDS: Levothyroxine 125 MCG Tablet PO (05:35)
[2023-11-24] MEDS: tiZANidine HCl 2 MG Tablet 4 MG PO ×3 (05:35→20:37)
[2023-11-24 07:07] LABS: Hemoglobin 9.1 g/dL (12.0-15.0); Mean Corp Hgb Conc 32.5 g/dL (32-36); Mean Corpuscular Hgb 29.8 pg (27.0-32.0); Mean Corpuscular Volume 91.8 fL (81-99); Platelet Count 172 K/mm3 (150-450); RBC Distribution Width CV 14.7 % (11.6-14.6); RBC Distribution Width SD 49.2 fl (35.1-43.9); Red Blood Count 3.05 M/mm3 (4.2-5.4); White Blood Count 5.2 K/mm3 (4.4-11.0)
--- NOTE | 2023-11-24 07:32 | PN.SURG_ITS ---
Subjective Subjective The patient had an uneventful weekend. She is still having poor p.o. intake but she insist that she is having okay p.o. intake for her. She is not having any abdominal pain. She denies nausea. Objective Data Objective Data Vital Signs: Vital Signs Temp Pulse Resp BP Pulse Ox O2 Del Method 96.4 F L 64 18 107/64 99 Room Air 11/24/23 03:21 11/24/23 03:21 11/24/23 03:21 11/24/23 03:21 11/24/23 03:21 11/24/23 03:21 Oxygen Delivery Method Room Air Weight: 263 lb 3.711 oz Body Mass Index (BMI) 43.1 Intake & Output: Intake and Output for Last 24 Hours 11/22/23 11/23/23 11/24/23 23:59 23:59 23:59 Intake Total 1830 / 1830 1640 / 1640 Output Total 500 / 500 400 / 400 Balance 1330 / 1330 1240 / 1240 Medical Nutrition Assessment Dietitian: Malnutrition Criteria Met Start: 11/20/23 15:12 Freq: Status: Active Protocol: Document 11/20/23 15:12 SB (Rec: 11/20/23 15:13 SB [id number]) Nutrition Malnutrition Evidence of Malnutrition Exists Yes Malnutrition (severe): Acute Illness/Injury Evidenced By Suboptimal Energy Intake ( Severe),Weight Loss (Severe) Clinical Problem Acute Disease or Injury Related Malnutrition Etiology severe related to inadequate oral intake Signs/Symptoms as evidenced by 15% unintentional weight loss x 1. 5 months and PO meeting <50% of estimated nutrition needs x 3 weeks. Status Active Problem Recommendation Dietitian Recommendations/Changes Recommend advanced diet as tolerated to liberalized regular diet d/t signs and symptoms of malnutrition. Will order 120ml mixed kolb ensure clear TID with medpass. As diet is advanced, will order 120ml vanilla ensure plus high protein 4x daily with medpass. Will adjust ONS, as appetite improves. Reviewed and approved by Aliyah Pulliam RD, LD. Lab / Micro Data 11/24/23 06:07 11/23/23 06:32 Labs: Laboratory Results - last 24 hr 11/23/23 06:32: Sodium 130 L, Potassium 3.6, Chloride 102, Carbon Dioxide 21.0, Anion Gap 7, BUN 11, Creatinine 1.20 H, Estim Creat Clear Calc 60.56, Est GFR (MDRD) Af Amer 58 L, Est GFR (MDRD) Non-Af 48 L, BUN/Creatinine Ratio 9.2 L, Glucose 85, Calcium 8.3 L, Free T4 0.79 11/24/23 06:07: WBC 5.2, RBC 3.05 L, Hgb 9.1 L, Hct 28.0 L, MCV 91.8, MCH 29.8, MCHC 32.5, RDW Std Deviation 49.2 H, RDW Coeff of Vicki 14.7 H, Plt Count 172, MPV 11.0 Micro: Microbiology 11/19/23 21:00 Urine, Clean Catch Urine Culture - Final Klebsiella pneumoniae sp pneum 11/20/23 08:20 Stool Stool Occult Blood (AUSTEN) - Final Occult Blood Positive 11/19/23 13:40 Stool Stool Lactoferrin - Final 11/19/23 13:40 Stool Enteric Bacteriology - Final 11/19/23 13:40 Stool Clostridioides difficile (PCR) - Final Rhythm Strip Rhythm Strip: Sinus Rhythm Rate: 85 Ectopy: None Physical Exam Const oriented x3 and no apparent distress Resp normal respiratory effort GI soft to palpation and non-tender Assessment & Plan Assessment/Plan (1) Dehydration: PLAN: Patient presented with acute dehydration and hypothyroidism. The patient has been started on Synthroid and she denies nausea or vomiting. She says she is drinking and taking in enough p.o. that she normally takes. She is refusing EGD at this time but she does not think will be anything wrong. She is okay for discharge back to her long-term. Calvin Stephenson MD Pager: [facility] [address] [place] [address], [address] [place] [address] Office:
[2023-11-24 07:39] LABS: Anion Gap 10 (5-15); BUN 8 mg/dL (7-18); BUN/Creat Ratio 8.2 RATIO (10-20); Calcium,Total 8.5 mg/dL (8.5-10.1); Chloride 100 mmol/L (98-107); Creatinine, Serum 0.98 mg/dL (0.55-1.02); EST Glomerular Filtration Rate 61 mL/min (>60); Est Glom Filt Rate - Afr Amer 73 mL/min (>60); Estimated Creatinine Clearance 74.05 ml/min; Glucose 84 mg/dL (74-106); Potassium 3.8 mmol/L (3.5-5.1); Sodium Level 129 mmol/L (136-145)
[2023-11-24 08:55] VITALS: BP 102/54; PULSE 65; RESP 18; TEMP 36.8; O2SAT 100
[2023-11-24] MEDS: Venlafaxine XR 150 MG Capsule PO (08:56)
[2023-11-24] MEDS: Pantoprazole Sodium 40 MG Tablet PO (08:56)
[2023-11-24] MEDS: busPIRone 15 MG TABLET PO ×2 (08:56→20:38)
[2023-11-24] MEDS: SimETHICONE 80 MG Chewable Tablet PO ×4 (08:59→20:38)
--- NOTE | 2023-11-24 09:27 | PCM.PN.HOSP ---
Reason for Visit Reason for Visit: Diagnoses Hypercalcemia (11/19/23) Dehydration (11/19/23) Hypo-osmolality and hyponatremia (11/19/23) Acidosis, unspecified (11/19/23) Hyperkalemia (11/19/23) Acute kidney failure, unspecified (11/19/23) Chronic kidney disease, unspecified (11/19/23) Generalized abdominal pain (11/19/23) Nausea with vomiting, unspecified (11/19/23) Diarrhea, unspecified (11/19/23) Abnormal levels of other serum enzymes (11/19/23) Subjective Subjective Patient is a 63-year-old lady resident of [facility] brought to the emergency department with nausea vomiting and diarrhea as well as generalized weakness. Was also found to have abnormal urinalysis consistent with UTI. Admitted to a monitored bed for further management Objective Data Objective Data Vital Signs: Vital Signs Temp Pulse Resp BP Pulse Ox O2 Del Method 98.3 F 65 18 102/54 L 100 Room Air 11/24/23 08:55 11/24/23 08:55 11/24/23 08:55 11/24/23 08:55 11/24/23 08:55 11/24/23 08:55 Oxygen Delivery Method Room Air Weight: 119.4 kg Body Mass Index (BMI) 43.1 Intake & Output: Intake and Output for Last 24 Hours 11/22/23 11/23/23 11/24/23 23:59 23:59 23:59 Intake Total 1830 / 1830 1640 / 1640 Output Total 500 / 500 400 / 400 Balance 1330 / 1330 1240 / 1240 Medical Nutrition Assessment Dietitian: Malnutrition Criteria Met Start: 11/20/23 15:12 Freq: Status: Active Protocol: Document 11/20/23 15:12 SB (Rec: 11/20/23 15:13 SB [id number]) Nutrition Malnutrition Evidence of Malnutrition Exists Yes Malnutrition (severe): Acute Illness/Injury Evidenced By Suboptimal Energy Intake ( Severe),Weight Loss (Severe) Clinical Problem Acute Disease or Injury Related Malnutrition Etiology severe related to inadequate oral intake Signs/Symptoms as evidenced by 15% unintentional weight loss x 1. 5 months and PO meeting <50% of estimated nutrition needs x 3 weeks. Status Active Problem Recommendation Dietitian Recommendations/Changes Recommend advanced diet as tolerated to liberalized regular diet d/t signs and symptoms of malnutrition. Will order 120ml mixed kolb ensure clear TID with medpass. As diet is advanced, will order 120ml vanilla ensure plus high protein 4x daily with medpass. Will adjust ONS, as appetite improves. Reviewed and approved by Aliyah Pulliam RD, LD. Lab / Micro Data 11/24/23 06:07 11/24/23 06:07 Labs: Laboratory Results - last 24 hr 11/24/23 06:07: WBC 5.2, RBC 3.05 L, Hgb 9.1 L, Hct 28.0 L, MCV 91.8, MCH 29.8, MCHC 32.5, RDW Std Deviation 49.2 H, RDW Coeff of Vicki 14.7 H, Plt Count 172, MPV 11.0, Sodium 129 L, Potassium 3.8, Chloride 100, Carbon Dioxide 19.0 L, Anion Gap 10, BUN 8, Creatinine 0.98, Estim Creat Clear Calc 74.05, Est GFR (MDRD) Af Amer 73, Est GFR (MDRD) Non-Af 61, BUN/Creatinine Ratio 8.2 L, Glucose 84, Calcium 8.5 Micro: Microbiology 11/19/23 21:00 Urine, Clean Catch Urine Culture - Final Klebsiella pneumoniae sp pneum 11/20/23 08:20 Stool Stool Occult Blood (AUSTEN) - Final Occult Blood Positive 11/19/23 13:40 Stool Stool Lactoferrin - Final 11/19/23 13:40 Stool Enteric Bacteriology - Final 11/19/23 13:40 Stool Clostridioides difficile (PCR) - Final Rhythm Strip Rhythm Strip: Sinus Rhythm Rate: 85 Ectopy: None Physical Exam Narrative GENERAL: cooperative HEENT: Atraumatic; normocephalic EYES; Anicteric, Normal Conjunctiva NECK; supple, normal thyroid, RESPIRATORY: Diminished to auscultation CARDIOVASCULAR: Regular S1 S2, GI: soft, normoactive bowel sounds, : No Renal angle tenderness; EXTREMITIES: No edema, no clubbing, MUSCULOSKELETAL: no muscle wasting NEURO: Awake; no lateralizing signs. SKIN: No Rash PSYCH; Flat affect Assessment & Plan Assessment/Plan (1) Diffuse abdominal pain: (2) Acute renal failure superimposed on chronic kidney disease: (3) Hyperkalemia, diminished renal excretion: (4) Metabolic acidosis: (5) Nausea & vomiting: (6) Diarrhea: (7) Dehydration: (8) Hyponatremia: (9) Hypercalcemia: (10) Elevated lipase: PLAN: Plan Patient is a 63-year-old lady resident of extended care facility brought to the emergency department with nausea vomiting and diarrhea as well as generalized weakness. Was also found to have abnormal urinalysis consistent with UTI. Admitted to a monitored bed for further management 1. Acute gastroenteritis ? Resolved with symptomatic management 2. Acute cystitis with Klebsiella pneumonia ? Patient was managed with ciprofloxacin 3. Recent partial colectomy involving the right colon ? On 09/30/2023 on account of ischemic colitis with bowel perforation. Procedure was performed by Dr. Stephenson. Consult was placed to him for possible EGD patient offered declined at this point #4. Hyponatremia ? Secondary to hypovolemic hyponatremia resuscitated with IV fluids with subsequent monitoring of electrolyte ordered 5. Hypothyroidism ? Patient is on levothyroxine home dose continued 6. GERD On PPI 7. Class II obesity with BMI 43.4 ? Complicating care weight loss advised 8. Essential hypertension ? Antihypertensives held on admission given relatively low blood pressure which has since resolved 9. Dyslipidemia ?Patient is on statin therapy, continued at home dose 10. Depression with anxiety ? Patient is on probation buspirone as well as venlafaxine continue 11. Physical deconditioning ? Requested for PT OT eval and certified social workers in health care to assist with discharge planning 12. DVT prophylaxis ? Subcu heparin Time spent in the patient's overall evaluation,decision-making process, review of diagnostic data, adjustment of management, discussion with other providers, nursing nursing and ancillary staff involved in patient's care documentation, 40 Minutes Charges/Coding Visit Charges Inpatient E&M: 72826 Subs Hosp L2
--- NOTE | 2023-11-24 10:02 | CASEMGMT ---
[facility] admissions staff is not in today due to the holiday (). Therefore, they will not be able to let us know if they can accept patient or start pre-cert. This GUANAKO and GUANAKO Danielson went to patient's room. Introduced selves and role at [facility]. SW explained [facility] has said no and [facility] is not available today. SW explained that physician feels she is medically ready. SW asked if she and her daughter had any other choices. Patient said they did not. Patient then called her daughter. SW then explained situation to patient's daughter. She asked about [facility]. [facility] is not in the list, but we can check. SW offered to email her the list and she said that would be helpful. Her email is [email or web address]. GUANAKO emailed the list to patient's daughter. GUANAKO will also confirm [facility] is not in network. Joann Morse MEAT PACKER [employer]AC[employer] FORMS DEVELOPER
--- NOTE | 2023-11-24 10:35 | CASEMGMT ---
GUANAKO received an email from patient's daughter Renetta. Renetta asked GUANAKO to send a referral to [facility]. GUANAKO asked Deborah to send a referral to [facility]. Joann CAMPO
--- NOTE | 2023-11-24 10:56 | CASEMGMT ---
Addendum entered by Deborah Núñez 11/25/23 08:37: [facility] declined d/t no available beds. Deborah Núñez DC Planning Asst. Original Note: Discharge Planning Referral sent to [facility] [place] via [facility]. Deborah Núñez DC Planning Asst.
--- NOTE | 2023-11-24 11:02 | CASEMGMT ---
Discharge Planning Msg sent to [facility] via [facility] requesting passr records. Deborah Núñez DC Planning Asst.
--- NOTE | 2023-11-24 11:27 | CASEMGMT ---
Addendum entered by Deborah Núñez 11/24/23 13:00: [facility] has no available beds. Deborah Núñez DC Planning Asst. Original Note: Discharge Planning Note sent to [facility] to check on bed availability. Deborah Núñez DC Planning Asst.
--- NOTE | 2023-11-24 14:10 | CASEMGMT ---
[facility] is full. GUANAKO sent patient's daughter Renetta an email letting her know that [facility] and [facility] are both full. Await response. Joann Morse MSW JAHAIRA
[2023-11-24 14:55] VITALS: BP 96/66; PULSE 56; RESP 18; TEMP 36.4; O2SAT 100
--- NOTE | 2023-11-24 15:09 | CASEMGMT ---
Addendum entered by Deborah Núñez 11/26/23 09:02: Updates sent to [facility]. Precert is pending. Deborah Núñez DC Planning Asst. Addendum entered by Deborah Núñez 11/25/23 10:11: [facility] has accepted. SW updated. Deborah Núñez DC Planning Asst. Original Note: Discharge Planning Referral sent via [facility] to [facility]. Deborah Núñez DC Planning Asst.
[2023-11-24 20:35] VITALS: BP 128/50; PULSE 75; RESP 18; TEMP 35.8; O2SAT 100
[2023-11-24] MEDS: Loratadine 10 MG Tablet PO (20:37)
[2023-11-24] MEDS: traZODone 100 MG Tablet PO (20:37)
[2023-11-25 03:00] VITALS: BP 117/67; PULSE 71; RESP 18; TEMP 36; O2SAT 98
[2023-11-25 04:50] VITALS: BMI 43.2
[2023-11-25] MEDS: Heparin Injection (Vial) 5,000 UNIT/ML VIAL 5000 UNIT SC ×3 (05:46→20:21)
[2023-11-25] MEDS: tiZANidine HCl 2 MG Tablet 4 MG PO ×3 (05:47→20:24)
[2023-11-25] MEDS: Levothyroxine 125 MCG Tablet PO (05:47)
[2023-11-25] MEDS: HYDROmorphone Inj 0.2 MG/ML SYRINGE IV ×2 (05:51→20:26)
[2023-11-25] MEDS: 0.9% Saline Lock 10 ML Syringe IV ×3 (05:52→20:37)
--- NOTE | 2023-11-25 07:30 | PN.SURG_ITS ---
Subjective Subjective Patient evaluated resting comfortably in bed. She notes having a good dinner last night. She denies any nausea, vomiting associated with dinner. She notes abdominal soreness however this is from coughing. She notes muscle discomfort not true pain. She is in good spirits this morning and is excited for her breakfast to come. Objective Data Objective Data Vital Signs: Vital Signs Temp Pulse Resp BP Pulse Ox O2 Del Method 96.8 F L 71 18 117/67 98 Room Air 11/25/23 03:00 11/25/23 03:00 11/25/23 03:00 11/25/23 03:00 11/25/23 03:00 11/25/23 03:00 Oxygen Delivery Method Room Air Weight: 263 lb 7.238 oz Body Mass Index (BMI) 43.2 Intake & Output: Intake and Output for Last 24 Hours 11/23/23 11/24/23 11/25/23 23:59 23:59 23:59 Intake Total 1640 / 1640 Output Total 400 / 400 500 / 500 530 / 530 Balance 1240 / 1240 -500 / -500 -530 / -530 Medical Nutrition Assessment Dietitian: Malnutrition Criteria Met Start: 11/20/23 15:12 Freq: Status: Active Protocol: Document 11/24/23 15:56 SB (Rec: 11/24/23 15:56 SB [id number]) Nutrition Malnutrition Evidence of Malnutrition Exists Yes Malnutrition (severe): Acute Illness/Injury Evidenced By Suboptimal Energy Intake ( Severe),Weight Loss (Severe) Clinical Problem Acute Disease or Injury Related Malnutrition Etiology severe related to inadequate oral intake Signs/Symptoms as evidenced by 10% unintentional weight loss x 1. 5 months and PO meeting <50% of estimated nutrition needs x 3 weeks. Status Active Problem Recommendation Dietitian Recommendations/Changes Continue regular diet d/t signs and symptoms of malnutrition. Will d/c 120ml mixed kolb ensure clear TID with medpass and chocolate magic cup with meals. Will order orange creme magic cup with lunch and dinner. Will adjust ONS, as appetite improves. Will monitor weight, as available. Reviewed and approved by Indiana Carias RD, LD. Lab / Micro Data 11/24/23 06:07 11/24/23 06:07 Labs: Laboratory Results - last 24 hr 11/24/23 06:07: Sodium 129 L, Potassium 3.8, Chloride 100, Carbon Dioxide 19.0 L , Anion Gap 10, BUN 8, Creatinine 0.98, Estim Creat Clear Calc 74.05, Est GFR (MDRD) Af Amer 73, Est GFR (MDRD) Non-Af 61, BUN/Creatinine Ratio 8.2 L, Glucose 84, Calcium 8.5 Micro: Microbiology 11/19/23 21:00 Urine, Clean Catch Urine Culture - Final Klebsiella pneumoniae sp pneum 11/20/23 08:20 Stool Stool Occult Blood ([facility]EN) - Final Occult Blood Positive 11/19/23 13:40 Stool Stool Lactoferrin - Final 11/19/23 13:40 Stool Enteric Bacteriology - Final 11/19/23 13:40 Stool Clostridioides difficile (PCR) - Final Rhythm Strip Rhythm Strip: Sinus Rhythm Rate: 85 Ectopy: None Physical Exam GI GI Narrative: Abdomen- soft, obese, nontender Assessment & Plan Assessment/Plan (1) Dehydration: PLAN: I am following this patient in conjunction with Dr. Stephenson. He has also evaluated this patient. Patient is overall improved Nausea and vomiting have resolved Patient is ready for discharge back to the correction from a surgical standpoint Charges/Coding Visit Charges Inpatient E&M: 04483 Subs Hosp L1 (post-op; no charge)
[2023-11-25 09:35] VITALS: BP 106/50; PULSE 66; RESP 16; TEMP 36.8; O2SAT 99
[2023-11-25] MEDS: busPIRone 15 MG TABLET PO ×2 (09:40→20:25)
[2023-11-25] MEDS: Pantoprazole Sodium 40 MG Tablet PO (09:40)
[2023-11-25] MEDS: Venlafaxine XR 150 MG Capsule PO (09:40)
[2023-11-25] MEDS: SimETHICONE 80 MG Chewable Tablet PO ×4 (09:40→20:22)
[2023-11-25 10:33] LABS: Absolute Lymphocyte Count 1.29 X10^3/uL (0.83-4.51); Absolute Neutrophil Count 2.4 X10^3/uL (2.0-7.7); Basophil# 0.04 X10^3/uL; Basophil% 0.9 % (0-1); Eosinophil# 0.14 X10^3/uL; Eosinophils% 3.1 % (0-5); Hematocrit 28.2 % (37-47); Hemoglobin 9.1 g/dL (12.0-15.0); Lymphocyte # 1.29 X10^3/ul (0.83-4.51); Lymphocyte % 28.7 % (19-41); Mean Corp Hgb Conc 32.3 g/dL (32-36); Mean Corpuscular Hgb 29.6 pg (27.0-32.0); Mean Corpuscular Volume 91.9 fL (81-99); Mean Platelet Vol. 10.6 fl (6.2-12.0); Monocyte# 0.61 X10^3/uL; Monocyte% 13.6 % (0-10); NRBC Flagged by Analyzer 0 % (0-5); Neutrophil # 2.36 X10^3/uL (2.7-7.7); Neutrophil % 52.6 % (47-70); Platelet Count 159 K/mm3 (150-450); RBC Distribution Width CV 14.6 % (11.6-14.6); RBC Distribution Width SD 49.1 fl (35.1-43.9); Red Blood Count 3.07 M/mm3 (4.2-5.4); White Blood Count 4.5 K/mm3 (4.4-11.0)
[2023-11-25 11:29] LABS: Anion Gap 8 (5-15); BUN 6 mg/dL (7-18); BUN/Creat Ratio 5.3 RATIO (10-20); Calcium,Total 8.3 mg/dL (8.5-10.1); Chloride 101 mmol/L (98-107); Creatinine, Serum 1.13 mg/dL (0.55-1.02); EST Glomerular Filtration Rate 51 mL/min (>60); Est Glom Filt Rate - Afr Amer 62 mL/min (>60); Estimated Creatinine Clearance 64.25 ml/min; Glucose 112 mg/dL (74-106); Magnesium 1.4 mg/dL (1.6-2.6); Phosphorus 2.7 mg/dL (2.5-4.9); Potassium 3.2 mmol/L (3.5-5.1); Sodium Level 130 mmol/L (136-145)
--- NOTE | 2023-11-25 11:55 | CASEMGMT ---
GUANAKO called [facility] ([facility]) to check if they can accept patient. GUANAKO was told [facility] is gone and [facility] is out on the floor. Unfortunately, patient is medically ready for discharge and we have an accepting facility. GUANAKO let patient's daughter know via email that we have contacted [facility] several times this am and still do not have an answer as to whether or not they can take patient. We will have to move forward with the accepting facility, [facility]. GUANAKO did explain if they are unhappy with [facility] then [facility] can assist with making a referral to [facility]. GUANAKO then asked [facility] to start the pre-cert. Plan: [facility] pending insurance approval. Joann Morse ANGLE SHEARER JAHAIRA
--- NOTE | 2023-11-25 13:16 | PN.HOSP_ITS ---
Reason for Visit Reason for Visit: Diagnoses Hypercalcemia (11/19/23) Dehydration (11/19/23) Hypo-osmolality and hyponatremia (11/19/23) Acidosis, unspecified (11/19/23) Hyperkalemia (11/19/23) Acute kidney failure, unspecified (11/19/23) Chronic kidney disease, unspecified (11/19/23) Generalized abdominal pain (11/19/23) Nausea with vomiting, unspecified (11/19/23) Diarrhea, unspecified (11/19/23) Abnormal levels of other serum enzymes (11/19/23) Subjective Subjective Patient seen had a relatively uneventful night. Awaiting insurance approval [facility] Objective Data Objective Data Vital Signs: Vital Signs Temp Pulse Resp BP Pulse Ox O2 Del Method 98.2 F 66 16 106/50 L 99 Room Air 11/25/23 09:35 11/25/23 09:35 11/25/23 09:35 11/25/23 09:35 11/25/23 09:35 11/25/23 09:35 Oxygen Delivery Method Room Air Weight: 119.5 kg Body Mass Index (BMI) 43.2 Intake & Output: Intake and Output for Last 24 Hours 11/23/23 11/24/23 11/25/23 23:59 23:59 23:59 Intake Total 1640 / 1640 Output Total 400 / 400 500 / 500 530 / 530 Balance 1240 / 1240 -500 / -500 -530 / -530 Medical Nutrition Assessment Dietitian: Malnutrition Criteria Met Start: 11/20/23 15:12 Freq: Status: Active Protocol: Document 11/24/23 15:56 SB (Rec: 11/24/23 15:56 SB [id number]) Nutrition Malnutrition Evidence of Malnutrition Exists Yes Malnutrition (severe): Acute Illness/Injury Evidenced By Suboptimal Energy Intake ( Severe),Weight Loss (Severe) Clinical Problem Acute Disease or Injury Related Malnutrition Etiology severe related to inadequate oral intake Signs/Symptoms as evidenced by 10% unintentional weight loss x 1. 5 months and PO meeting <50% of estimated nutrition needs x 3 weeks. Status Active Problem Recommendation Dietitian Recommendations/Changes Continue regular diet d/t signs and symptoms of malnutrition. Will d/c 120ml mixed kolb ensure clear TID with medpass and chocolate magic cup with meals. Will order orange creme magic cup with lunch and dinner. Will adjust ONS, as appetite improves. Will monitor weight, as available. Reviewed and approved by Indiana Carias RD, LD. Lab / Micro Data 11/25/23 10:11/25/23 10: Labs: Laboratory Results - last 24 hr 11/25/23 10:26: WBC 4.5, RBC 3.07 L, Hgb 9.1 L, Hct 28.2 L, MCV 91.9, MCH 29.6, MCHC 32.3, RDW Std Deviation 49.1 H, RDW Coeff of Vicki 14.6, Plt Count 159, MPV 10.6, Immature Gran % (Auto) 1.100 H, Neut % (Auto) 52.6, Lymph % (Auto) 28.7, M krista % (Auto) 13.6 H, Eos % (Auto) 3.1, Baso % (Auto) 0.9, Absolute Neuts (auto) 2.4, Absolute Lymphs (auto) 1.29, Nucleated RBC % 0, Sodium 130 L, Potassium 3.2 L, Chloride 101, Carbon Dioxide 21.0, Anion Gap 8, BUN 6 L, Creatinine 1.13 H, Estim Creat Clear Calc 64.25, Est GFR (MDRD) Af Amer 62, Est GFR (MDRD) Non-Af 51 L, BUN/Creatinine Ratio 5.3 L, Glucose 112 H, Calcium 8.3 L, Phosphorus 2.7, Magnesium 1.4 L Micro: Microbiology 11/19/23 21:00 Urine, Clean Catch Urine Culture - Final Klebsiella pneumoniae sp pneum 11/20/23 08:20 Stool Stool Occult Blood ([facility]) - Final Occult Blood Positive 11/19/23 13:40 Stool Stool Lactoferrin - Final 11/19/23 13:40 Stool Enteric Bacteriology - Final 11/19/23 13:40 Stool Clostridioides difficile (PCR) - Final Rhythm Strip Rhythm Strip: Sinus Rhythm Rate: 85 Ectopy: None Physical Exam Narrative GENERAL: cooperative HEENT: Atraumatic; normocephalic EYES; Anicteric, Normal Conjunctiva NECK; supple, normal thyroid, RESPIRATORY: Diminished to auscultation CARDIOVASCULAR: Regular S1 S2, GI: soft, normoactive bowel sounds, : No Renal angle tenderness; EXTREMITIES: No edema, no clubbing, MUSCULOSKELETAL: no muscle wasting NEURO: Awake; no lateralizing signs. SKIN: No Rash PSYCH; Flat affect Assessment & Plan Assessment/Plan (1) Diffuse abdominal pain: (2) Acute renal failure superimposed on chronic kidney disease: (3) Hyperkalemia, diminished renal excretion: (4) Metabolic acidosis: (5) Nausea & vomiting: (6) Diarrhea: (7) Dehydration: (8) Hyponatremia: (9) Hypercalcemia: (10) Elevated lipase: PLAN: Plan Patient is a 63-year-old lady resident of [facility] brought to the emergency department with nausea vomiting and diarrhea as well as generalized weakness. Was also found to have abnormal urinalysis consistent with UTI. Admitted to a monitored bed for further management 1. Acute gastroenteritis ? Resolved with symptomatic management 2. Acute cystitis with Klebsiella pneumonia ? Patient was managed with ciprofloxacin 3. Recent partial colectomy involving the right colon ? On 09/30/2023 on account of ischemic colitis with bowel perforation. Procedure was performed by Dr. Stephenson. Consult was placed to him for possible EGD patient offered declined at this point #4. Hyponatremia ? Secondary to hypovolemic hyponatremia resuscitated with IV fluids with subsequent monitoring of electrolyte ordered 5. Hypothyroidism ? Patient is on levothyroxine home dose continued 6. GERD On PPI 7. Class II obesity with BMI 43.4 ? Complicating care weight loss advised 8. Essential hypertension ? Antihypertensives held on admission given relatively low blood pressure which has since resolved 9. Dyslipidemia ?Patient is on statin therapy, continued at home dose 10. Depression with anxiety ? Patient is on probation buspirone as well as venlafaxine continue 11. Physical deconditioning ? Requested for PT OT eval and social work instructor to assist with discharge planning 12. DVT prophylaxis ? Subcu heparin 13. Severe malnutrition ? Related to inadequate oral intake as evidenced by 10% unintentional weight loss x 1.5 months and PO meeting <50% of estimated nutrition needs x 3 weeks. Continue regular diet d/t signs and symptoms of malnutrition. Will d/c 120ml mixed kolb ensure clear TID with medpass and chocolate magic cup with meals. Will order orange creme magic cup with lunch and dinner. Will adjust ONS, as appetite improves. Will monitor weight, as available. Time spent in the patient's overall evaluation,decision-making process, review of diagnostic data, adjustment of management, discussion with other providers, nursing nursing and ancillary staff involved in patient's care documentation, 36 Minutes Charges/Coding Visit Charges Inpatient E&M: 41414 Subs Hosp L2
[2023-11-25 15:06] VITALS: BP 102/50; PULSE 58; RESP 14; TEMP 36.7; O2SAT 100
[2023-11-25 19:30] VITALS: BP 110/58; PULSE 71; RESP 16; TEMP 36.4; O2SAT 99
[2023-11-25] MEDS: traZODone 100 MG Tablet PO (20:22)
[2023-11-25] MEDS: Loratadine 10 MG Tablet PO (20:25)
[2023-11-25] MEDS: Ondansetron 4 MG/2 ML Vial IV (20:37)
[2023-11-26 03:50] VITALS: BP 121/51; PULSE 71; RESP 16; TEMP 36.6; O2SAT 98
[2023-11-26 04:56] VITALS: BMI 43.2
[2023-11-26] MEDS: Levothyroxine 125 MCG Tablet PO (06:12)
[2023-11-26] MEDS: Heparin Injection (Vial) 5,000 UNIT/ML VIAL 5000 UNIT SC ×2 (06:12→13:15)
[2023-11-26 06:50] LABS: Absolute Neutrophil Count 2.5 X10^3/uL (2.0-7.7); Basophil# 0.04 X10^3/uL; Basophil% 0.8 % (0-1); Eosinophil# 0.17 X10^3/uL; Eosinophils% 3.4 % (0-5); Hematocrit 27.1 % (37-47); Hemoglobin 9.1 g/dL (12.0-15.0); Lymphocyte % 28.3 % (19-41); Mean Corp Hgb Conc 33.6 g/dL (32-36); Mean Corpuscular Hgb 30.6 pg (27.0-32.0); Mean Corpuscular Volume 91.2 fL (81-99); Mean Platelet Vol. 11.1 fl (6.2-12.0); Monocyte# 0.83 X10^3/uL; Monocyte% 16.8 % (0-10); NRBC Flagged by Analyzer 0 % (0-5); Neutrophil # 2.45 X10^3/uL (2.7-7.7); Neutrophil % 49.5 % (47-70); Platelet Count 189 K/mm3 (150-450); RBC Distribution Width CV 14.6 % (11.6-14.6); Red Blood Count 2.97 M/mm3 (4.2-5.4)
[2023-11-26 07:15] LABS: Anion Gap 11 (5-15); BUN 7 mg/dL (7-18); BUN/Creat Ratio 5.5 RATIO (10-20); Calcium,Total 8.2 mg/dL (8.5-10.1); Chloride 101 mmol/L (98-107); Creatinine, Serum 1.28 mg/dL (0.55-1.02); EST Glomerular Filtration Rate 44 mL/min (>60); Est Glom Filt Rate - Afr Amer 54 mL/min (>60); Estimated Creatinine Clearance 56.78 ml/min; Glucose 111 mg/dL (74-106); Sodium Level 131 mmol/L (136-145)
[2023-11-26] MEDS: SimETHICONE 80 MG Chewable Tablet PO ×2 (08:57→13:14)
[2023-11-26] MEDS: tiZANidine HCl 2 MG Tablet 4 MG PO ×2 (08:57→13:14)
[2023-11-26] MEDS: busPIRone 15 MG TABLET PO (08:58)
[2023-11-26] MEDS: Pantoprazole Sodium 40 MG Tablet PO (08:58)
[2023-11-26] MEDS: Venlafaxine XR 150 MG Capsule PO (08:58)
[2023-11-26] MEDS: proCHLORPERazine 10 MG/2 ML Vial 5 MG IV (09:03)
[2023-11-26] MEDS: 0.9% Saline Lock 10 ML Syringe IV ×4 (09:04→13:24)
--- NOTE | 2023-11-26 09:13 | PCM.PN.HOSP ---
Reason for Visit Reason for Visit: Diagnoses Hypercalcemia (11/19/23) Dehydration (11/19/23) Hypo-osmolality and hyponatremia (11/19/23) Acidosis, unspecified (11/19/23) Hyperkalemia (11/19/23) Acute kidney failure, unspecified (11/19/23) Chronic kidney disease, unspecified (11/19/23) Generalized abdominal pain (11/19/23) Nausea with vomiting, unspecified (11/19/23) Diarrhea, unspecified (11/19/23) Abnormal levels of other serum enzymes (11/19/23) Subjective Subjective Patient seen has significant abnormalities including hypokalemia and hypomagnesemia correction initiated Objective Data Objective Data Vital Signs: Vital Signs Temp Pulse Resp BP Pulse Ox O2 Del Method 98 F 71 16 121/51 H 98 Room Air 11/26/23 03:50 11/26/23 03:50 11/26/23 03:50 11/26/23 03:50 11/26/23 03:50 11/26/23 03:50 Oxygen Delivery Method Room Air Weight: 119.7 kg Body Mass Index (BMI) 43.2 Intake & Output: Intake and Output for Last 24 Hours 11/24/23 11/25/23 11/26/23 23:59 23:59 23:59 Intake Total 440 / 840 580 / 580 Output Total 500 / 500 1130 / 1930 1200 / 1200 Balance -500 / -500 -690 / -1090 -620 / -620 Medical Nutrition Assessment Dietitian: Malnutrition Criteria Met Start: 11/20/23 15:12 Freq: Status: Active Protocol: Document 11/24/23 15:56 SB (Rec: 11/24/23 15:56 SB [id number]) Nutrition Malnutrition Evidence of Malnutrition Exists Yes Malnutrition (severe): Acute Illness/Injury Evidenced By Suboptimal Energy Intake ( Severe),Weight Loss (Severe) Clinical Problem Acute Disease or Injury Related Malnutrition Etiology severe related to inadequate oral intake Signs/Symptoms as evidenced by 10% unintentional weight loss x 1. 5 months and PO meeting <50% of estimated nutrition needs x 3 weeks. Status Active Problem Recommendation Dietitian Recommendations/Changes Continue regular diet d/t signs and symptoms of malnutrition. Will d/c 120ml mixed kolb ensure clear TID with medpass and chocolate magic cup with meals. Will order orange creme magic cup with lunch and dinner. Will adjust ONS, as appetite improves. Will monitor weight, as available. Reviewed and approved by Indiana Carias RD, LD. Lab / Micro Data 11/26/23 05:36 11/26/23 05:36 Labs: Laboratory Results - last 24 hr 11/25/23 10:26: WBC 4.5, RBC 3.07 L, Hgb 9.1 L, Hct 28.2 L, MCV 91.9, MCH 29.6, MCHC 32.3, RDW Std Deviation 49.1 H, RDW Coeff of Vicki 14.6, Plt Count 159, MPV 10.6, Immature Gran % (Auto) 1.100 H, Neut % (Auto) 52.6, Lymph % (Auto) 28.7, [place] % (Auto) 13.6 H, Eos % (Auto) 3.1, Baso % (Auto) 0.9, Absolute Neuts (auto) 2.4, Absolute Lymphs (auto) 1.29, Nucleated RBC % 0, Sodium 130 L, Potassium 3.2 L, Chloride 101, Carbon Dioxide 21.0, Anion Gap 8, BUN 6 L, Creatinine 1.13 H, Estim Creat Clear Calc 64.25, Est GFR (MDRD) Af Amer 62, Est GFR (MDRD) Non-Af 51 L, BUN/Creatinine Ratio 5.3 L, Glucose 112 H, Calcium 8.3 L, Phosphorus 2.7, Magnesium 1.4 L 11/26/23 05:36: WBC 5.0, RBC 2.97 L, Hgb 9.1 L, Hct 27.1 L, MCV 91.2, MCH 30.6, MCHC 33.6, RDW Std Deviation 49.0 H, RDW Coeff of Vicki 14.6, Plt Count 189, MPV 11.1, Immature Gran % (Auto) 1.200 H, Neut % (Auto) 49.5, Lymph % (Auto) 28.3, [place] % (Auto) 16.8 H, Eos % (Auto) 3.4, Baso % (Auto) 0.8, Absolute Neuts (auto) 2.5, Absolute Lymphs (auto) 1.40, Nucleated RBC % 0, Sodium 131 L, Potassium 3.0 L, Chloride 101, Carbon Dioxide 19.0 L, Anion Gap 11, BUN 7, Creatinine 1.28 H, Estim Creat Clear Calc 56.78, Est GFR (MDRD) Af Amer 54 L, Est GFR (MDRD) Non-Af 44 L, BUN/Creatinine Ratio 5.5 L, Glucose 111 H, Calcium 8.2 L Micro: Microbiology 11/19/23 21:00 Urine, Clean Catch Urine Culture - Final Klebsiella pneumoniae sp pneum 11/20/23 08:20 Stool Stool Occult Blood ([facility]) - Final Occult Blood Positive 11/19/23 13:40 Stool Stool Lactoferrin - Final 11/19/23 13:40 Stool Enteric Bacteriology - Final 11/19/23 13:40 Stool Clostridioides difficile (PCR) - Final Rhythm Strip Rhythm Strip: Sinus Rhythm Rate: 85 Ectopy: None Physical Exam Narrative GENERAL: cooperative HEENT: Atraumatic; normocephalic EYES; Anicteric, Normal Conjunctiva NECK; supple, normal thyroid, RESPIRATORY: Diminished to auscultation CARDIOVASCULAR: Regular S1 S2, GI: soft, normoactive bowel sounds, : No Renal angle tenderness; EXTREMITIES: No edema, no clubbing, MUSCULOSKELETAL: no muscle wasting NEURO: Awake; no lateralizing signs. SKIN: No Rash PSYCH; Flat affect Assessment & Plan Assessment/Plan (1) Diffuse abdominal pain: (2) Acute renal failure superimposed on chronic kidney disease: (3) Hyperkalemia, diminished renal excretion: (4) Metabolic acidosis: (5) Nausea & vomiting: (6) Diarrhea: (7) Dehydration: (8) Hyponatremia: (9) Hypercalcemia: (10) Elevated lipase: PLAN: Plan Patient is a 63-year-old lady resident of [facility] brought to the emergency department with nausea vomiting and diarrhea as well as generalized weakness. Was also found to have abnormal urinalysis consistent with UTI. Admitted to a monitored bed for further management 1. Acute gastroenteritis ? Resolved with symptomatic management 2. Acute cystitis with Klebsiella pneumonia ? Patient was managed with ciprofloxacin 3. Recent partial colectomy involving the right colon ? On 09/30/2023 on account of ischemic colitis with bowel perforation. Procedure was performed by Dr. Stephenson. Consult was placed to him for possible EGD patient offered declined at this point 4. Hyponatremia ? Secondary to hypovolemic hyponatremia resuscitated with IV fluids with subsequent monitoring of electrolyte ordered ? 11/26/2023; patient sodium levels continue to improve 131 as of today 5. Hypothyroidism ? Patient is on levothyroxine home dose continued 6. GERD On PPI 7. Class II obesity with BMI 43.4 ? Complicating care weight loss advised 8. Essential hypertension ? Antihypertensives held on admission given relatively low blood pressure which has since resolved 9. Dyslipidemia ?Patient is on statin therapy, continued at home dose 10. Depression with anxiety ? Patient is on probation buspirone as well as venlafaxine continue 11. Physical deconditioning ? Requested for PT OT eval and social services analyst to assist with discharge planning 12. DVT prophylaxis ? Subcu heparin 13. Severe malnutrition ? Related to inadequate oral intake as evidenced by 10% unintentional weight loss x 1.5 months and PO meeting <50% of estimated nutrition needs x 3 weeks. Continue regular diet d/t signs and symptoms of malnutrition. Will d/c 120ml mixed kolb ensure clear TID with medpass and chocolate magic cup with meals. Will order orange creme magic cup with lunch and dinner. Will adjust ONS, as appetite improves. Will monitor weight, as available. 14. Hypokalemia -Corrected per protocol 15. Hypomagnesemia -Corrected for protocol 16. Anemia ? Secondary to chronic disorder monitoring H&H and transfuse if patient becomes symptomatic or hemoglobin falls below 7 Time spent in the patient's overall evaluation,decision-making process, review of diagnostic data, adjustment of management, discussion with other providers, nursing nursing and ancillary staff involved in patient's care documentation, 36 Minutes Charges/Coding Visit Charges Inpatient E&M: 40129 Subs Hosp L2
--- NOTE | 2023-11-26 09:14 | CASEMGMT ---
Discharge Planning [facility] has obtained auth to admit. SW updated. Deborah Núñez DC Planning Asst.
[2023-11-26 09:22] VITALS: BP 114/54; PULSE 84; RESP 14; TEMP 37.1; O2SAT 100
--- NOTE | 2023-11-26 09:46 | PCM.TXEXTCAR ---
Diet Diet Order/Speech Therapy: 11/24/23 04:45 Diet: Regular - General Type of Dietary Supplement:: Magic Cup Dessert Diet Comments: orange magic cup Problem/Diagnosis (1) Diffuse abdominal pain: Status: Acute Code(s): R10.84 - Generalized abdominal pain (2) Acute renal failure superimposed on chronic kidney disease: Status: Chronic Code(s): N17.9 - Acute kidney failure, unspecified; N18.9 - Chronic kidney disease, unspecified (3) Hyperkalemia, diminished renal excretion: Status: Acute Code(s): E87.5 - Hyperkalemia (4) Metabolic acidosis: Status: Acute Code(s): E87.20 - Acidosis, unspecified (5) Nausea & vomiting: Status: Acute Code(s): R11.2 - Nausea with vomiting, unspecified (6) Diarrhea: Status: Acute Code(s): R19.7 - Diarrhea, unspecified (7) Dehydration: Status: Acute Code(s): E86.0 - Dehydration (8) Hyponatremia: Status: Acute Code(s): E87.1 - Hypo-osmolality and hyponatremia (9) Hypercalcemia: Status: Acute Code(s): E83.52 - Hypercalcemia (10) Elevated lipase: Status: Acute Code(s): R74.8 - Abnormal levels of other serum enzymes Plan Patient is a 63-year-old lady resident of [facility] brought to the emergency department with nausea vomiting and diarrhea as well as generalized weakness. Was also found to have abnormal urinalysis consistent with UTI. Admitted to a monitored bed for further management 1. Acute gastroenteritis ? Resolved with symptomatic management 2. Acute cystitis with Klebsiella pneumonia ? Patient was managed with ciprofloxacin 3. Recent partial colectomy involving the right colon ? On 09/30/2023 on account of ischemic colitis with bowel perforation. Procedure was performed by Dr. Stephenson. Consult was placed to him for possible EGD patient offered declined at this point 4. Hyponatremia ? Secondary to hypovolemic hyponatremia resuscitated with IV fluids with subsequent monitoring of electrolyte ordered ? 11/26/2023; patient sodium levels continue to improve 131 as of today 5. Hypothyroidism ? Patient is on levothyroxine home dose continued 6. GERD On PPI 7. Class II obesity with BMI 43.4 ? Complicating care weight loss advised 8. Essential hypertension ? Antihypertensives held on admission given relatively low blood pressure which has since resolved 9. Dyslipidemia ?Patient is on statin therapy, continued at home dose 10. Depression with anxiety ? Patient is on probation buspirone as well as venlafaxine continue 11. Physical deconditioning ? Requested for PT OT eval and social problems specialist to assist with discharge planning 12. DVT prophylaxis ? Subcu heparin 13. Severe malnutrition ? Related to inadequate oral intake as evidenced by 10% unintentional weight loss x 1.5 months and PO meeting <50% of estimated nutrition needs x 3 weeks. Continue regular diet d/t signs and symptoms of malnutrition. Will d/c 120ml mixed kolb ensure clear TID with medpass and chocolate magic cup with meals. Will order orange creme magic cup with lunch and dinner. Will adjust ONS, as appetite improves. Will monitor weight, as available. 14. Hypokalemia -Corrected per protocol 15. Hypomagnesemia -Corrected for protocol 16. Anemia ? Secondary to chronic disorder monitoring H&H and transfuse if patient becomes symptomatic or hemoglobin falls below 7 Time spent in the patient's overall evaluation,decision-making process, review of diagnostic data, adjustment of management, discussion with other providers, nursing nursing and ancillary staff involved in patient's care documentation, 36 Minutes Allergies/Procedures Done in Hospital Allergies cefaclor (From Ceclor) Allergy (Verified 11/19/23 08:45) Anaphylaxis chlorhexidine Allergy (Verified 11/19/23 08:45) Hives codeine Allergy (Verified 11/19/23 08:45) Anaphylaxis paroxetine (From Paxil) Allergy (Verified 11/19/23 08:45) Anaphylaxis Penicillins Allergy (Verified 11/19/23 08:45) Anaphylaxis Sulfa (Sulfonamide Antibiotics) Allergy (Verified 11/19/23 08:45) Anaphylaxis Type of Care/Length of Stay Estimated LOS: Convalescent Care Less Than 30 days Type of Care Needed: Skilled Rehab Potential: Good Prognosis: Good Additional Orders/Day of Discharge Day of Discharge: 11/26/23 Dietary and Speech Recommendations Dietitian Recommendations/Changes: Continue regular diet d/t signs and symptoms of malnutrition. Will d/c 120ml mixed kolb ensure clear TID with medpass and chocolate magic cup with meals. Will order orange creme magic cup with lunch and dinner. Will adjust ONS, as appetite improves. Will monitor weight, as available. Reviewed and approved by Indiana Carias RD, LD. Discharge Plan Admission Admit Date/Time: 11/19/23 11:48 Attending Provider: Christoph Echeverria Primary Care Provider: Chaparro Mejia Consulting Providers: Calvin Stephenson; Belinda Doran; Martita Griffith Discharge Orders/Prescriptions Prescriptions: New levothyroxine 125 mcg Tablet 125 mcg PO DAILY@0600 Qty: 0 0RF loperamide 2 mg Capsule 2 mg PO Q4H PRN PRN (Reason: Diarrhea/Loose Stools) Qty: 0 0RF sennosides-docusate sodium [Stimulant Laxative Plus] 8.6-50 mg Tablet 2 tab PO BID PRN PRN (Reason: Constipation) Qty: 0 0RF potassium chloride 20 mEq Tablet,Er Particles/Crystals 20 meq PO BIDCM Qty: 0 0RF magnesium chloride [Mag 64] 64 mg Tablet,Delayed Release (Dr/Ec) 128 mg PO BID Qty: 0 0RF Continued verapamil 240 mg tablet extended release 240 mg PO QDAY venlafaxine 150 mg capsule,extended release 24hr 150 mg PO QDAY buspirone 30 mg tablet 15 mg PO BID trazodone 100 mg tablet 100 mg PO QHS tizanidine 4 mg tablet 4 mg PO TID atorvastatin 10 mg tablet 10 mg PO QHS bupropion HCl 200 mg tablet sustained-release 12 hr 200 mg PO DAILY cetirizine 10 mg tablet 10 mg PO QHS melatonin 5 mg capsule 5 mg PO QHS omeprazole 20 mg capsule,delayed release(DR/EC) 20 mg PO DAILY furosemide [Lasix] 40 mg tablet 40 mg PO DAILY Qty: 30 0RF Discontinued levothyroxine [Levo-T] 50 mcg tablet 50 mcg PO DAILY losartan 100 mg tablet 100 mg PO DAILY oxycodone 5 mg tablet 5 mg PO Q6H PRN (Reason: pain) spironolactone 50 mg tablet 50 mg PO DAILY potassium chloride 20 mEq tablet extended release 20 meq PO DAILY Referrals / Follow Up: Chaparro Mejia MD [Primary Care Provider] - Disposition Disposition (needs filled in before D/C Order can be placed): Retirement Facility
--- NOTE | 2023-11-26 09:56 | DS.PCM_ITS ---
Providers Date of Admission: 11/19/23 Date of Discharge: 11/26/23 Primary Care Physician: Chaparro Mejia MD Consultations 11/19/23 13:28 Consult: General Surgery Routine Consulting Provider: Calvin Stephenson Reason for Consult: nausea and vomiting with recent SBR/Colectomy EMERGENT Consult: No MD Notified: Yes Date Notified: 11/19/23 Time Notified: 11:50 Method of Notification: Text Reason For Visit: JENNIFER/NAUSEA AND VOMITING/DEHYDRATION/HYPERKALEMIA Diagnosis Discharge Diagnosis (1) Diffuse abdominal pain: Status: Acute Code(s): R10.84 - Generalized abdominal pain (2) Acute renal failure superimposed on chronic kidney disease: Status: Chronic Code(s): N17.9 - Acute kidney failure, unspecified; N18.9 - Chronic kidney disease, unspecified (3) Hyperkalemia, diminished renal excretion: Status: Acute Code(s): E87.5 - Hyperkalemia (4) Metabolic acidosis: Status: Acute Code(s): E87.20 - Acidosis, unspecified (5) Nausea & vomiting: Status: Acute Code(s): R11.2 - Nausea with vomiting, unspecified (6) Diarrhea: Status: Acute Code(s): R19.7 - Diarrhea, unspecified (7) Dehydration: Status: Acute Code(s): E86.0 - Dehydration (8) Hyponatremia: Status: Acute Code(s): E87.1 - Hypo-osmolality and hyponatremia (9) Hypercalcemia: Status: Acute Code(s): E83.52 - Hypercalcemia (10) Elevated lipase: Status: Acute Code(s): R74.8 - Abnormal levels of other serum enzymes Plan Patient is a 63-year-old lady resident of [facility] brought to the emergency department with nausea vomiting and diarrhea as well as generalized weakness. Was also found to have abnormal urinalysis consistent with UTI. Admitted to a monitored bed for further management 1. Acute gastroenteritis ? Resolved with symptomatic management 2. Acute cystitis with Klebsiella pneumonia ? Patient was managed with ciprofloxacin 3. Recent partial colectomy involving the right colon ? On 09/30/2023 on account of ischemic colitis with bowel perforation. Procedure was performed by Dr. Stephenson. Consult was placed to him for possible EGD patient offered declined at this point 4. Hyponatremia ? Secondary to hypovolemic hyponatremia resuscitated with IV fluids with subsequent monitoring of electrolyte ordered ? 11/26/2023; patient sodium levels continue to improve 131 as of today 5. Hypothyroidism ? Patient is on levothyroxine home dose continued 6. GERD On PPI 7. Class II obesity with BMI 43.4 ? Complicating care weight loss advised 8. Essential hypertension ? Antihypertensives held on admission given relatively low blood pressure which has since resolved 9. Dyslipidemia ?Patient is on statin therapy, continued at home dose 10. Depression with anxiety ? Patient is on probation buspirone as well as venlafaxine continue 11. Physical deconditioning ? Requested for PT OT eval and social media senior associate to assist with discharge planning 12. DVT prophylaxis ? Subcu heparin 13. Severe malnutrition ? Related to inadequate oral intake as evidenced by 10% unintentional weight loss x 1.5 months and PO meeting <50% of estimated nutrition needs x 3 weeks. Continue regular diet d/t signs and symptoms of malnutrition. Will d/c 120ml mixed kolb ensure clear TID with medpass and chocolate magic cup with meals. Will order orange creme magic cup with lunch and dinner. Will adjust ONS, as appetite improves. Will monitor weight, as available. 14. Hypokalemia -Corrected per protocol 15. Hypomagnesemia -Corrected for protocol 16. Anemia ? Secondary to chronic disorder monitoring H&H and transfuse if patient becomes symptomatic or hemoglobin falls below 7 Time spent in the patient's overall evaluation,decision-making process, review of diagnostic data, adjustment of management, discussion with other providers, nursing nursing and ancillary staff involved in patient's care documentation, 36 Minutes Medications at Discharge Home Medications buspirone 30 mg tablet 15 mg PO BID 04/28/23 tizanidine 4 mg tablet 4 mg PO TID 04/28/23 trazodone 100 mg tablet 100 mg PO QHS 04/28/23 venlafaxine 150 mg capsule,extended release 24 hr 150 mg PO QDAY 04/28/23 verapamil 240 mg tablet,extended release 240 mg PO QDAY 04/28/23 atorvastatin 10 mg tablet 10 mg PO QHS 11/19/23 bupropion HCl 200 mg tablet,12 hr sustained-release 200 mg PO DAILY 11/19/23 cetirizine 10 mg tablet 10 mg PO QHS 11/19/23 melatonin 5 mg capsule 5 mg PO QHS 11/19/23 omeprazole 20 mg capsule,delayed release 20 mg PO DAILY 11/19/23 levothyroxine 125 mcg tablet 125 mcg PO DAILY@0600 #0 tabs 11/23/23 furosemide 40 mg tablet (Lasix) 40 mg PO DAILY #30 tabs 11/26/23 loperamide 2 mg capsule 2 mg PO Q4H PRN PRN Diarrhea/Loose Stools #0 caps 11/26/23 magnesium chloride 64 mg (magnesium chloride) tablet,delayed release (Mag 64) 128 mg (2 x 64 mg) PO BID #0 tabs 11/26/23 potassium chloride 20 mEq tablet,extended release(part/cryst) 20 meq PO BIDCM #0 tabs 11/26/23 sennosides 8.6 mg-docusate sodium 50 mg tablet (Stimulant Laxative Plus) 2 tab PO BID PRN PRN Constipation #0 tabs 11/26/23 Hospital Course Summary of Care Provided Minutes Spent on Discharge: 36 Physical Exam Narrative GENERAL: cooperative HEENT: Atraumatic; normocephalic EYES; Anicteric, Normal Conjunctiva NECK; supple, normal thyroid, RESPIRATORY: Diminished to auscultation CARDIOVASCULAR: Regular S1 S2, GI: soft, normoactive bowel sounds, : No Renal angle tenderness; EXTREMITIES: No edema, no clubbing, MUSCULOSKELETAL: no muscle wasting NEURO: Awake; no lateralizing signs. SKIN: No Rash PSYCH; Flat affect Medical Records Data Medical Nutrition Assessment Dietitian: Malnutrition Criteria Met Start: 11/20/23 15:12 Freq: Status: Active Protocol: Document 11/24/23 15:56 SB (Rec: 11/24/23 15:56 [id number]) Nutrition Malnutrition Evidence of Malnutrition Exists Yes Malnutrition (severe): Acute Illness/Injury Evidenced By Suboptimal Energy Intake ( Severe),Weight Loss (Severe) Clinical Problem Acute Disease or Injury Related Malnutrition Etiology severe related to inadequate oral intake Signs/Symptoms as evidenced by 10% unintentional weight loss x 1. 5 months and PO meeting <50% of estimated nutrition needs x 3 weeks. Status Active Problem Recommendation Dietitian Recommendations/Changes Continue regular diet d/t signs and symptoms of malnutrition. Will d/c 120ml mixed kolb ensure clear TID with medpass and chocolate magic cup with meals. Will order orange creme magic cup with lunch and dinner. Will adjust ONS, as appetite improves. Will monitor weight, as available. Reviewed and approved by Indiana Carias, RD, LD. Weight / BMI Weight Weight: 119.7 kg Body Mass Index (BMI) 43.2 ABG / Lab / Microbiology Data 11/26/23 05:36 11/26/23 05:36 Laboratory: Laboratory Results - last 24 hr 11/25/23 10:26: WBC 4.5, RBC 3.07 L, Hgb 9.1 L, Hct 28.2 L, MCV 91.9, MCH 29.6, MCHC 32.3, RDW Std Deviation 49.1 H, RDW Coeff of Vicki 14.6, Plt Count 159, MPV 10.6, Immature Gran % (Auto) 1.100 H, Neut % (Auto) 52.6, Lymph % (Auto) 28.7, M krista % (Auto) 13.6 H, Eos % (Auto) 3.1, Baso % (Auto) 0.9, Absolute Neuts (auto) 2.4, Absolute Lymphs (auto) 1.29, Nucleated RBC % 0, Sodium 130 L, Potassium 3.2 L, Chloride 101, Carbon Dioxide 21.0, Anion Gap 8, BUN 6 L, Creatinine 1.13 H, Estim Creat Clear Calc 64.25, Est GFR (MDRD) Af Amer 62, Est GFR (MDRD) Non-Af 51 L, BUN/Creatinine Ratio 5.3 L, Glucose 112 H, Calcium 8.3 L, Phosphorus 2.7, Magnesium 1.4 L 11/26/23 05:36: WBC 5.0, RBC 2.97 L, Hgb 9.1 L, Hct 27.1 L, MCV 91.2, MCH 30.6, MCHC 33.6, RDW Std Deviation 49.0 H, RDW Coeff of Vicki 14.6, Plt Count 189, MPV 11.1, Immature Gran % (Auto) 1.200 H, Neut % (Auto) 49.5, Lymph % (Auto) 28.3, M krista % (Auto) 16.8 H, Eos % (Auto) 3.4, Baso % (Auto) 0.8, Absolute Neuts (auto) 2.5, Absolute Lymphs (auto) 1.40, Nucleated RBC % 0, Sodium 131 L, Potassium 3.0 L, Chloride 101, Carbon Dioxide 19.0 L, Anion Gap 11, BUN 7, Creatinine 1.28 H, Estim Creat Clear Calc 56.78, Est GFR (MDRD) Af Amer 54 L, Est GFR (MDRD) Non-Af 44 L, BUN/Creatinine Ratio 5.5 L, Glucose 111 H, Calcium 8.2 L Microbiology: Microbiology 11/19/23 21:00 Urine, Clean Catch Urine Culture - Final Klebsiella pneumoniae sp pneum 11/20/23 08:20 Stool Stool Occult Blood (AUSTEN) - Final Occult Blood Positive 11/19/23 13:40 Stool Stool Lactoferrin - Final 11/19/23 13:40 Stool Enteric Bacteriology - Final 11/19/23 13:40 Stool Clostridioides difficile (PCR) - Final D/C Instructions Discharge Diet: No restrictions Discharge Activity: Return to Normal Activity Call your doctor if you observe: Fever of 101 or Higher, Shortness of breath, Fainting spells and Chest pain Meaningful Use Info Meaningful Use Meaningful Use Diagnoses (Choose all that apply): None applicable Ischemic Stroke Statin Dosing Therapy Reference: STATIN DOSE THERAPY REFERENCE: * Patients > 75 years receive moderate or high dose statin therapy. * Patients 75 years or YOUNGER should receive HIGH intensity statin dose unless contraindicated. You will be required to document reason for non-treatment if statin daily dose does not meet guidelines. HIGH DOSE STATIN THERAPY DAILY Atorvastatin > than or = to 40 mg Rosuvastatin > than or = to 20 mg Amlodipine + Atorvastatin > than or = to 2.5/40 mg Ezetimibe + Simvastatin 10/80 mg Simvastatin 80mg Discharge Plan Admission Admit Date/Time: 11/19/23 11:48 Attending Provider: Christoph Echeverria Primary Care Provider: Chaparro Mejia Consulting Providers: Calvin Stephenson; Belinda Doran; Martita Griffith Discharge Orders/Prescriptions Prescriptions: New levothyroxine 125 mcg Tablet 125 mcg PO DAILY@0600 Qty: 0 0RF loperamide 2 mg Capsule 2 mg PO Q4H PRN PRN (Reason: Diarrhea/Loose Stools) Qty: 0 0RF sennosides-docusate sodium [Stimulant Laxative Plus] 8.6-50 mg Tablet 2 tab PO BID PRN PRN (Reason: Constipation) Qty: 0 0RF potassium chloride 20 mEq Tablet,Er Particles/Crystals 20 meq PO BIDCM Qty: 0 0RF magnesium chloride [Mag 64] 64 mg Tablet,Delayed Release (Dr/Ec) 128 mg PO BID Qty: 0 0RF Continued verapamil 240 mg tablet extended release 240 mg PO QDAY venlafaxine 150 mg capsule,extended release 24hr 150 mg PO QDAY buspirone 30 mg tablet 15 mg PO BID trazodone 100 mg tablet 100 mg PO QHS tizanidine 4 mg tablet 4 mg PO TID atorvastatin 10 mg tablet 10 mg PO QHS bupropion HCl 200 mg tablet sustained-release 12 hr 200 mg PO DAILY cetirizine 10 mg tablet 10 mg PO QHS melatonin 5 mg capsule 5 mg PO QHS omeprazole 20 mg capsule,delayed release(DR/EC) 20 mg PO DAILY furosemide [Lasix] 40 mg tablet 40 mg PO DAILY Qty: 30 0RF Discontinued levothyroxine [Levo-T] 50 mcg tablet 50 mcg PO DAILY losartan 100 mg tablet 100 mg PO DAILY oxycodone 5 mg tablet 5 mg PO Q6H PRN (Reason: pain) spironolactone 50 mg tablet 50 mg PO DAILY potassium chloride 20 mEq tablet extended release 20 meq PO DAILY Referrals / Follow Up: Chaparro Mejia MD [Primary Care Provider] - Disposition Disposition (needs filled in before D/C Order can be placed): Long-Term Facility Charges/Coding Visit Charges Inpatient E&M: 53890 Disch Hosp >30min
[2023-11-26] MEDS: Potassium Chloride Oral Tablet 20 MEQ 40 MEQ PO (10:18)
[2023-11-26] MEDS: Magnesium Chloride 64 MG Delay Rel.Tablet 128 MG PO (10:18)
--- NOTE | 2023-11-26 10:26 | CASEMGMT ---
Patient has been approved to go to [facility]. Per physician patient is hesitant. SW called patient's daughter and left her a voice mail requesting a return call. SW also sent her an email letting her know patient was approved and will move to [facility] today. SW did re-emphasize in the email that if patient is unhappy the facility can assist with moving patient to another facility. This SW and GUANAKO Danielson met with patient. Much time spent in the room providing support to patient on the move to a new facility after she had such a bad experience. SW's were supportive and provided encouragement. By the end of the conversation patient seemed to be more at ease. SW let patient know when a time is arranged she will be notified. Plan: d/c to [facility] under skilled level of care. Physicians will transport patient via wheelchair van. Joann CAMPO
[2023-11-26] MEDS: Magnesium Sulfate 2 GM in Dextrose 5%-Water (100mL Bag) 100 ML IV (10:46)
--- NOTE | 2023-11-26 10:57 | CASEMGMT ---
Discharge Planning Discharge orders, signed med list, and transport time sent to [facility] via [facility]. Physicians will transport by wheelchair at 12p. Nursing, SW, and patient updated. VM left for patients daughter (Renetta). Deborah Núñez DC Planning Asst.
--- NOTE | 2023-11-26 11:31 | CASEMGMT ---
Patient's transport time was changed to 130 due to a medication being administered. SW notified pocket secretary assembler and charge attendant. Patient was sleeping so SW did not wake her. SW will notify RN. Deborah d/c strike planning applications will notify [facility]. Plan: d/c to [facility] under skilled level of care. Physicians will transport patient via wheelchair van. Joann Morse ARBOREAL SCIENTIST YARN SIZER
[2023-11-26] MEDS: HYDROmorphone Inj 0.2 MG/ML SYRINGE IV (13:23)
[2023-11-26] MEDS: Ondansetron 4 MG/2 ML Vial IV (13:23)
[2023-11-26 13:30] VITALS: BP 109/62; PULSE 72; RESP 18; TEMP 37; O2SAT 99
== END 2023-11-26 13:45 | disposition skilled nursing facility (03) | DRG 391 ==
LOC: ED 11:57 → ICU 13:01 → PCU 11-20 18:51
PROVIDERS: Admitting Provider Internal Medicine; Emergency Provider Emergency Medicine; PCP Family Medicine; Visit Provider Internal Medicine
DX: K52.9 Noninfective gastroenteritis and colitis, unspecified (principal); E43 Unspecified severe protein-calorie malnutrition; J15.0 Pneumonia due to Klebsiella pneumoniae; E87.20 Acidosis, unspecified; E87.1 Hypo-osmolality and hyponatremia; E87.21 Acute metabolic acidosis; I13.0 Hypertensive heart and chronic kidney disease with heart failure and stage 1 through stage 4 chronic kidney disease, or unspecified chronic kidney disease; Z68.41 Body mass index [BMI] 40.0-44.9, adult; N17.9 Acute kidney failure, unspecified; N39.0 Urinary tract infection, site not specified; N30.00 Acute cystitis without hematuria; B96.1 Klebsiella pneumoniae [K. pneumoniae] as the cause of diseases classified elsewhere; Z66 Do not resuscitate; E86.0 Dehydration; N18.9 Chronic kidney disease, unspecified; E03.9 Hypothyroidism, unspecified; F32.A Depression, unspecified; I50.9 Heart failure, unspecified; E66.01 Morbid (severe) obesity due to excess calories; E78.00 Pure hypercholesterolemia, unspecified; E83.52 Hypercalcemia; E87.5 Hyperkalemia; K21.9 Gastro-esophageal reflux disease without esophagitis; G47.33 Obstructive sleep apnea (adult) (pediatric); N18.2 Chronic kidney disease, stage 2 (mild); E87.6 Hypokalemia; E78.5 Hyperlipidemia, unspecified; F41.9 Anxiety disorder, unspecified; Z79.891 Long term (current) use of opiate analgesic; Z87.891 Personal history of nicotine dependence; Z79.2 Long term (current) use of antibiotics; Z90.710 Acquired absence of both cervix and uterus; Z79.890 Hormone replacement therapy; E66.812 Obesity, class 2
CPT/HCPCS: 36415; 74176; 80048; 80053; 81001; 82274; 82962; 83605; 83630; 83690; 83735; 84100; 84300; 84439; 84443; 85025; 85027; 87077; 87086; 87088; 87186; 87493; 87506; 92526; 92610; 93005; 94668; 97162; 97166; 97530; 97535; 97802; 97803; 99284; 99406; J7030; J7040; J7050; J7120; A4216; J0744; J2405

== ENCOUNTER 2023-12-01 14:46 | Emergency (ER) | payer MEDICARE, MEDICAID, SELFPAY ==
[2023-12-01 14:46] VITALS: BP 138/82; PULSE 99; RESP 22; TEMP 36.1; O2SAT 97
--- NOTE | 2023-12-01 15:30 | EX.ED.DYSGE1 ---
HPI History of Present Illness Chief Complaint: Abd Pain [facility] Medical History Heart failure Gastroenteritis Diarrhea Small bowel ischemia Small bowel perforation Trigger finger, left ring finger Trigger finger, right ring finger Right carpal tunnel syndrome Bilateral carpal tunnel syndrome Hypothyroidism Anxiety and depression High cholesterol Hypertension Home Medications ?Medication ?Instructions ?Recorded ?Last Taken ?Type buspirone 30 mg tablet 15 mg PO BID 04/28/23 Unknown History tizanidine 4 mg tablet 4 mg PO TID 04/28/23 Unknown History trazodone 100 mg tablet 100 mg PO QHS 04/28/23 Unknown History venlafaxine 150 mg 150 mg PO QDAY 04/28/23 Unknown History capsule,extended release 24 hr verapamil 240 mg tablet,extended 240 mg PO QDAY 04/28/23 Unknown History release atorvastatin 10 mg tablet 10 mg PO QHS 11/19/23 Unknown History bupropion HCl 200 mg tablet,12 hr 200 mg PO DAILY 11/19/23 Unknown History sustained-release cetirizine 10 mg tablet 10 mg PO QHS 11/19/23 Unknown History melatonin 5 mg capsule 5 mg PO QHS 11/19/23 Unknown History omeprazole 20 mg capsule,delayed 20 mg PO DAILY 11/19/23 Unknown History release levothyroxine 125 mcg tablet 125 mcg PO DAILY@0600 #0 tabs 11/23/23 Unknown Rx furosemide 40 mg tablet (Lasix) 40 mg PO DAILY #30 tabs 11/26/23 Unknown Rx loperamide 2 mg capsule 2 mg PO Q4H PRN PRN Diarrhea/Loose 11/26/23 Unknown Rx Stools #0 caps magnesium chloride 64 mg 128 mg (2 x 64 mg) PO BID #0 tabs 11/26/23 Unknown Rx (magnesium chloride) tablet,delayed release (Mag 64) potassium chloride 20 mEq 20 meq PO BIDCM #0 tabs 11/26/23 Unknown Rx tablet,extended release(part/cryst) sennosides 8.6 mg-docusate sodium 2 tab PO BID PRN PRN Constipation 11/26/23 Unknown Rx 50 mg tablet (Stimulant Laxative #0 tabs Plus) Allergy/AdvReac Type Severity Reaction Status Date / Time cefaclor (From [facility]) Allergy Anaphylaxis Verified 11/19/23 08:45 chlorhexidine Allergy Hives Verified 11/19/23 08:45 codeine Allergy Anaphylaxis Verified 11/19/23 08:45 paroxetine (From Paxil) Allergy Anaphylaxis Verified 11/19/23 08:45 Penicillins Allergy Anaphylaxis Verified 11/19/23 08:45 Sulfa (Sulfonamide Allergy Anaphylaxis Verified 11/19/23 08:45 Antibiotics) Surgical History History of exploratory laparotomy S/P TKR (total knee replacement) History of shoulder replacement History of hysterectomy History of cholecystectomy Hx of appendectomy Social History household members: none Smoking Status: Former smoker alcohol intake: never EXAM Physical Exam Const Vital Signs: 12/01/23 14:46 12/01/23 16:46 Temperature 97.0 F L Temperature Source Temporal Pulse Rate 99 88 Respiratory Rate 22 H 18 Blood Pressure 138/82 H 125/67 H Blood Pressure Mean 100 86 Pulse Ox 97 98 Oxygen Delivery Method Room Air Room Air MDM MDM MDM Narrative Medical decision making narrative: HISTORY OF PRESENT ILLNESS: 63-year-old female presents with lower abdominal pain. Seen last week for the same complaint. States has been unable to pee all day. Notes last bowel movement was just before arrival. No melena hematochezia noted. No recent abdominal surgery. Notes vomiting. Denies hematemesis or any bilious nature to her vomitus. Denies chest pain or shortness of breath. REVIEW OF SYSTEMS: Pertinent positives: Abdominal pain nausea vomit Pertinent negatives: Fever, chest pain, shortness of breath PHYSICAL EXAM: Nursing triage notes reviewed, Vital signs reviewed Constitutional: please see mdm HENT: MMM Eyes: Pupils equal round and reactive to light, Extraocular muscles intact Neck: No stridor, no JVD, full neck ROM Lungs: Clear to auscultation, No wheezing or rales. No increased work of breathing, no conversational dyspnea, no accessory muscle use, no nasal flaring. No respiratory distress noted Heart: Regular rate and rhythm, No murmurs, No rubs and No gallops, 2+ distal pulses (radial, femoral, posterior tibial) in all extremities Abdomen: Exam limited by body habitus, obese abdomen, soft, diffuse tenderness but no, rigidity, rebound or guarding, no obvious peritoneal signs, no palpable pulsatile abdominal masses, no auscultated abdominal bruit : No CVAT Extremities: No edema Neuro: No focal neurological deficits, cranial nerves II through XII intact, 5/5 strength in all extremities. Intact sensation to light touch in all extremities, 2+ reflexes bilateral patella tendons. Normal gait. No ataxia. Skin: No rash or lesions noted MEDICAL DECISION MAKING: Chief Complaint: Abdominal pain External records reviewed: Reviewed prior allergies, medical problems, vital signs, current medications. Reviewed CT scan from 11/19/2023: No renal stone or ureteral stone noted at that time Factors affecting care: CKD, bowel perforation history of elevated lipase, diffuse abdominal pain, Social determinants of health: none History obtained from others: none Consults: none MDM Narrative: The patient was initially hemodynamically stable, afebrile and nontoxic-appearing abdominal exam with midline surgical scars clean dry intact. Exam limited by body habitus. No obvious peritoneal signs however I considered the following differential diagnosis: AAA, small bowel obstruction, abdominal perforation, appendicitis, pancreatitis, hepatobiliary pathology (acute cholecystitis), mesenteric ischemia, pathology (ie nephrolithiasis, pyelonephritis). ALL IMAGES (IF OBTAINED) HAVE BEEN PERSONALLY REVIEWED AND INTERPRETED BY MYSELF. CT scan abdomen pelvis shows no evidence of perforation obstruction or other acute surgical emergency CBC was reassuring no evidence of leukocytosis to suggest significant relations, noted mild chronic anemia that is improved from baseline, no thrombocytopenia CMP with mild hyponatremia, hypokalemia, there is no evidence of metabolic acidosis or endorgan hypoperfusion, noted improved CKD, no evidence hepatobiliary obstruction Lipase is wnl indicating no pancreatic inflammation. Bladder scan negative for urinary retention The patient and/or family, caregivers express understanding. The patient and/or family, caregivers agrees with the plan. Shared decision making: I will have a discussion with the patient and or visitors regarding risk/benefits of further testing or admission. They will be made aware of of the risk/benefits inherent in this decision they will be given the opportunity to voice understanding. Total critical care time today provided was at least 0 [] minutes. This excludes separately billable procedures. Critical care time (if documented) is secondary to the patient having high probability of clinically significant/life threatening deterioration in the patient's condition which required my urgent intervention. Impression: 1. Abdominal pain 2. History abdominal surgery 3. Nausea and vomiting Dispo: [] This note was generated with Dragon dictation software. It may contain incorrect words, spelling, and punctuation that were not noted in review of the chart prior to signing. Lab Data Labs: Laboratory Results - last 24 hr 12/01/23 15:36 WBC 6.9 RBC 3.60 L Hgb 10.8 L Hct 31.9 L MCV 88.6 MCH 30.0 MCHC 33.9 RDW Std Deviation 46.6 H RDW Coeff of Vicki 14.4 Plt Count 338 MPV 9.4 Immature Gran % (Auto) 0.700 Neut % (Auto) 62.0 Lymph % (Auto) 22.8 [place] % (Auto) 12.7 H Eos % (Auto) 0.9 Baso % (Auto) 0.9 Absolute Neuts (auto) 4.3 Absolute Lymphs (auto) 1.58 Nucleated RBC % 0 Sodium 133 L Potassium 3.4 L Chloride 97 L Carbon Dioxide 23.0 Anion Gap 13 BUN 4 L Creatinine 1.43 H Est GFR (MDRD) Af Amer 47 L Est GFR (MDRD) Non-Af 39 L BUN/Creatinine Ratio 2.8 L Glucose 112 H Calcium 9.5 Total Bilirubin 0.40 Direct Bilirubin 0.16 AST 12 L ALT 17 Alkaline Phosphatase 137 H Total Protein 6.8 Albumin 2.8 L Globulin 4.0 Lipase 59 Radiography Diagnostic Testing: Clinical Impression(s) from Imaging Studies Abdomen/Pelvis CT 12/01/23 15:43 IMPRESSION: Prior surgery at the ascending colon with mild adjacent mesenteric stranding. Right renal cyst. Small fatty umbilical hernia. Electronically Signed: Gian Frausto DO at 17:18 EDT Reading Location ID and State: [facility] / [place] Tel [phone], Service support , Discharge Plan Triage Chief Complaint: Abd Pain ED Provider: Tyrese Hardy Dx/Rx/DC Orders Prescriptions: No Action verapamil 240 mg tablet extended release 240 mg PO QDAY venlafaxine 150 mg capsule,extended release 24hr 150 mg PO QDAY buspirone 30 mg tablet 15 mg PO BID trazodone 100 mg tablet 100 mg PO QHS tizanidine 4 mg tablet 4 mg PO TID atorvastatin 10 mg tablet 10 mg PO QHS bupropion HCl 200 mg tablet sustained-release 12 hr 200 mg PO DAILY cetirizine 10 mg tablet 10 mg PO QHS melatonin 5 mg capsule 5 mg PO QHS omeprazole 20 mg capsule,delayed release(DR/EC) 20 mg PO DAILY levothyroxine 125 mcg Tablet 125 mcg PO DAILY@0600 Qty: 0 0RF loperamide 2 mg Capsule 2 mg PO Q4H PRN PRN (Reason: Diarrhea/Loose Stools) Qty: 0 0RF sennosides-docusate sodium [Stimulant Laxative Plus] 8.6-50 mg Tablet 2 tab PO BID PRN PRN (Reason: Constipation) Qty: 0 0RF potassium chloride 20 mEq Tablet,Er Particles/Crystals 20 meq PO BIDCM Qty: 0 0RF magnesium chloride [Mag 64] 64 mg Tablet,Delayed Release (Dr/Ec) 128 mg PO BID Qty: 0 0RF furosemide [Lasix] 40 mg tablet 40 mg PO DAILY Qty: 30 0RF Primary Care Provider: Chaparro Mejia Referrals: Chaparro Mejia MD [Primary Care Provider] - Print Language: Cook Islander
[2023-12-01] MEDS: Ondansetron 4 MG/2 ML Vial IV (15:40)
[2023-12-01] MEDS: Ketorolac 15 MG/ML Vial IV (15:41)
--- NOTE | 2023-12-01 15:43 | CT_ITS ---
STUDY: CT ABDOMEN AND PELVIS WITH CONTRAST REASON FOR EXAM: Female, 63 years old. lower abdominal pain RADIATION DOSAGE (If Supplied By Facility): CTDIvol = ( 16.92 ) mGy, DLP = ( 1335.02 ) mGycm TECHNIQUE: Transaxial images were obtained from the dome of the diaphragm to the symphysis pubis without oral contrast. IV 100mL Isovue-300 was administered. Sagittal and coronal images were reconstructed. Individualized dose optimization techniques were used for this CT. COMPARISON: None. FINDINGS: The visualized lung bases are unremarkable. The visualized portions of the heart are within normal limits. Normal liver. Status post cholecystectomy. No significant dilatation of the extrahepatic biliary system. Normal spleen. Stable metallic artifact at the head of the pancreas. Normal bilateral adrenal glands. 1.2 cm cyst in the right kidney. Normal left kidney. Normal visualized stomach. Normal small intestine. Prior surgery at the ascending colon with mild adjacent mesenteric stranding. The appendix is nonvisualized. Calcified abdominal aorta. Normal inferior vena cava. Normal retroperitoneum. Normal urinary bladder. Small fatty umbilical hernia. Stable mild compression of L2 with vertebroplasty. CT/Abdomen/Pelvis W IV Cont ONLY IMPRESSION: Prior surgery at the ascending colon with mild adjacent mesenteric stranding. Right renal cyst. Small fatty umbilical hernia. Electronically Signed: Gian Frausto DO at 17:18 EDT ,
[2023-12-01] MEDS: Morphine 4 MG/ML Syringe IV ×2 (15:51→18:53)
[2023-12-01 16:01] LABS: Absolute Lymphocyte Count 1.58 X10^3/uL (0.83-4.51); Absolute Neutrophil Count 4.3 X10^3/uL (2.0-7.7); Basophil# 0.06 X10^3/uL; Basophil% 0.9 % (0-1); Eosinophil# 0.06 X10^3/uL; Eosinophils% 0.9 % (0-5); Hematocrit 31.9 % (37-47); Hemoglobin 10.8 g/dL (12.0-15.0); Lymphocyte # 1.58 X10^3/ul (0.83-4.51); Lymphocyte % 22.8 % (19-41); Mean Corp Hgb Conc 33.9 g/dL (32-36); Mean Corpuscular Volume 88.6 fL (81-99); Mean Platelet Vol. 9.4 fl (6.2-12.0); Monocyte# 0.88 X10^3/uL; Monocyte% 12.7 % (0-10); NRBC Flagged by Analyzer 0 % (0-5); Platelet Count 338 K/mm3 (150-450); RBC Distribution Width CV 14.4 % (11.6-14.6); RBC Distribution Width SD 46.6 fl (35.1-43.9); White Blood Count 6.9 K/mm3 (4.4-11.0)
[2023-12-01 16:16] LABS: AST(SGOT) 12 U/L (15-37); Alanine Aminotransfer ALT/SGPT 17 U/L (13-56); Albumin, Serum 2.8 g/dL (3.2-5.0); Alkaline Phosphatase 137 U/L (45-117); Anion Gap 13 (5-15); BUN 4 mg/dL (7-18); BUN/Creat Ratio 2.8 RATIO (10-20); Bilirubin, Direct 0.16 mg/dL (0.00-0.30); Calcium,Total 9.5 mg/dL (8.5-10.1); Chloride 97 mmol/L (98-107); Creatinine, Serum 1.43 mg/dL (0.55-1.02); EST Glomerular Filtration Rate 39 mL/min (>60); Est Glom Filt Rate - Afr Amer 47 mL/min (>60); Glucose 112 mg/dL (74-106); Lipase 59 U/L (13-75); Potassium 3.4 mmol/L (3.5-5.1); Protein, Total 6.8 g/dL (6.4-8.2); Sodium Level 133 mmol/L (136-145)
[2023-12-01 16:46] VITALS: BP 125/67; PULSE 88; RESP 18; O2SAT 98
[2023-12-01] MEDS: 0.9% Normal Saline (1000mL) 1,000 ML 999 ML IV (17:53)
[2023-12-01 18:00] VITALS: BP 130/77; PULSE 83; RESP 16; O2SAT 98
[2023-12-01 20:00] VITALS: BP 144/73; PULSE 88; RESP 16; O2SAT 98
[2023-12-01 20:07] LABS: Mucous, Urine 0 SEEN /hpf (<or=2+); Red Blood Cells-Urine 0 SEEN /hpf (0-5)
[2023-12-01 20:13] LABS: Color, Urine Yellow (Yellow); Glucose, Dipstick Normal (Normal); Ketone-Dipstick 5 mg/dl (Negative); Leukocyte Esterase-Dipstick 25 /ul (Negative); Nitrite-Dipstick Negative (Negative); Occult Blood-Urine 10 /ul (Negative); Protein-Dipstick 30 mg/dl (Negative); Specific Gravity, Urine 1.005 (1.002-1.030); Urine Bilirubin Dipstick Negative (Negative); Urine Clarity Sl. Cloudy (Clear); Urine Urobilinogen 1 mg/dl (Normal); Urine pH 6.5 (5.0 - 8.0)
[2023-12-01 20:20] LABS: Bacteria RARE /hpf (None Seen); Squamous Epithelial Cells - UA 10-25 SEEN /hpf (5-10); White Blood Cells 0-5 SEEN /hpf (0-5)
[2023-12-01] MEDS: Famotidine 200 MG/20 ML MDV 20 MG in 0.9% Normal Saline (Pres. free 8 ML 300 MG IV (21:15)
[2023-12-01 22:54] VITALS: BP 140/72; PULSE 81; RESP 15; TEMP 36.6; O2SAT 98
== END 2023-12-01 22:55 | disposition home or self-care (01) ==
PROVIDERS: Emergency Provider Emergency Medicine; PCP Family Medicine; Visit Provider Emergency Medicine
DX: R10.30 Lower abdominal pain, unspecified (principal); I13.0 Hypertensive heart and chronic kidney disease with heart failure and stage 1 through stage 4 chronic kidney disease, or unspecified chronic kidney disease; I50.9 Heart failure, unspecified; R11.2 Nausea with vomiting, unspecified; E87.1 Hypo-osmolality and hyponatremia; E87.6 Hypokalemia; D64.9 Anemia, unspecified; N18.9 Chronic kidney disease, unspecified; E03.9 Hypothyroidism, unspecified; F41.9 Anxiety disorder, unspecified; F32.A Depression, unspecified; E78.00 Pure hypercholesterolemia, unspecified; G56.03 Carpal tunnel syndrome, bilateral upper limbs; Z88.0 Allergy status to penicillin; Z88.2 Allergy status to sulfonamides; Z87.19 Personal history of other diseases of the digestive system; Z90.49 Acquired absence of other specified parts of digestive tract; Z96.619 Presence of unspecified artificial shoulder joint; Z96.659 Presence of unspecified artificial knee joint; Z79.899 Other long term (current) drug therapy; Z79.890 Hormone replacement therapy; Z87.891 Personal history of nicotine dependence; Z98.890 Other specified postprocedural states
CPT/HCPCS: 74177; 80048; 80076; 81001; 83690; 85025; 96361; 96365; 96374; 96375; 96376; 99284; J7030; P9612; Q9967; A4216; J2405; J3490

== ENCOUNTER 2023-12-25 20:08 | Emergency (ER) | payer MEDICARE, MEDICAID, SELFPAY ==
[2023-12-25 20:09] VITALS: BP 151/70; PULSE 89; RESP 16; TEMP 36.9; O2SAT 96; BMI 39.4
--- NOTE | 2023-12-25 20:30 | CT_ITS ---
STUDY: CT BRAIN WITHOUT CONTRAST REASON FOR EXAM: Female, 63 years old. head trauma RADIATION DOSAGE (If Supplied By Facility): CTDIvol = ( 44.99 ) mGy, DLP = ( 829.85 ) mGycm TECHNIQUE: Transaxial CT imaging of the brain was performed without administration of intravenous contrast material. Individualized dose optimization techniques were used for this CT. The protocol utilizes one or more of the following dose reduction techniques: automated exposure control, adjustment of mA and/or kV according to patient size,and/or use of iterative reconstruction technique. COMPARISON: No relevant priors. FINDINGS: Subcutaneous hematoma left parietal scalp. Normal calvarium. Normal size ventricles and extra-axial spaces for the patient''s age. Normal white matter tracts of the cerebral hemispheres. Normal basal ganglia and thalami. Normal brainstem. Normal cerebellum. There is no intracranial hemorrhage. There are no findings of an acute ischemic infarction. Normal visualized paranasal sinuses. CT/Brain/Head without Contrast IMPRESSION: Scalp hematoma. No intracranial injury noted. Electronically Signed: Jose Reddy MD at 21:37 EST ,
--- NOTE | 2023-12-25 20:30 | CT_ITS ---
STUDY: CT FACIAL BONES WITHOUT CONTRAST REASON FOR EXAM: Female, 63 years old. trauma RADIATION DOSAGE (If Supplied By Facility): CTDIvol = ( 29.38 ) mGy, DLP = ( 540.11 ) mGycm TECHNIQUE: The patient was scanned in a multi detector CT scanner. Sagittal and coronal images were reconstructed. Individualized dose optimization techniques were used for this CT. The protocol utilizes one or more of the following dose reduction techniques: automated exposure control, adjustment of mA and/or kV according to patient size,and/or use of iterative reconstruction technique. COMPARISON: None. FINDINGS: Normal soft tissue structures. Intracranial atherosclerosis. Normal orbital pepper and orbital contents. Normal nasal bones and anterior nasal spine. Normal facial bones. There is no demonstrated fracture. Normal visualized paranasal sinuses. CT/Sinus/Facial Bone IMPRESSION: No fracture Electronically Signed: Jose Reddy MD at 21:39 EST ,
--- NOTE | 2023-12-25 20:30 | CT_ITS ---
STUDY: CT CERVICAL SPINE WITHOUT CONTRAST REASON FOR EXAM: Female, 63 years old. trauma RADIATION DOSAGE (If Supplied By Facility): CTDIvol = ( 27.34 ) mGy, DLP = ( 489.72 ) mGycm TECHNIQUE: High resolution transaxial imaging was performed without contrast material. Sagittal and coronal images were reconstructed. Individualized dose optimization techniques were used for this CT. The protocol utilizes one or more of the following dose reduction techniques: automated exposure control, adjustment of mA and/or kV according to patient size,and/or use of iterative reconstruction technique. COMPARISON: None FINDINGS: Normal craniovertebral junction. Normal anterior atlantoaxial articulation. Normal odontoid process. Mild scoliosis or torticollis. Normal cervical lordosis. Normal vertebral bodies and posterior osseous elements. C2-3: Normal endplates. Normal disc height and morphology. Normal central canal and intervertebral neuroforamina. C3-4: Normal endplates. Decreased disc height and morphology. Normal central canal and intervertebral neuroforamina. C4-5: Normal endplates. Normal disc height and morphology. Normal central canal and intervertebral neuroforamina. C5-6: Normal endplates. Normal disc height and morphology. Normal central canal and intervertebral neuroforamina. C6-7: Normal endplates. Normal disc height and morphology. Normal central canal and intervertebral neuroforamina. C7-T1: Normal endplates. Normal disc height and morphology. Normal central canal and intervertebral neuroforamina. Normal visualized soft tissue structures. Calcified plaque in the carotids bilaterally. CT/Spine Cervical without Contras IMPRESSION: No fracture Electronically Signed: Jose Reddy MD at 21:46 EST ,
--- NOTE | 2023-12-25 20:33 | EDS_ITS ---
HPI HPI - Fall History of Present Illness Chief Complaint: Fall Informant: patient Occured/Mechanism Occurred: Today and Hours Usually ambulates: Without assistance Pain/Injury Pain Location: head and face Quality of Pain: Sharp Maximum Severity: Moderate Narrative Narrative: 63-year-old female history of hypertension was going up 2 steps to the home lost her balance fell backwards striking her head. Complaining of posterior head left facial pain. No LOC. No blood thinners. Brought in by squad. C-collar in place. Denies other complaints. Denies recent illness. Prior similar symptoms: No Recent Illness/Hospitalization: Yes [facility], [facility] Medical History Heart failure Gastroenteritis Diarrhea Small bowel ischemia Small bowel perforation Trigger finger, left ring finger Trigger finger, right ring finger Right carpal tunnel syndrome Bilateral carpal tunnel syndrome Hypothyroidism Anxiety and depression High cholesterol Hypertension Home Medications ?Medication ?Instructions ?Recorded ?Last Taken ?Type buspirone 30 mg tablet 15 mg PO BID 04/28/23 Unknown History tizanidine 4 mg tablet 4 mg PO TID 04/28/23 Unknown History trazodone 100 mg tablet 100 mg PO QHS 04/28/23 Unknown History venlafaxine 150 mg 150 mg PO QDAY 04/28/23 Unknown History capsule,extended release 24 hr verapamil 240 mg tablet,extended 240 mg PO QDAY 04/28/23 Unknown History release atorvastatin 10 mg tablet 10 mg PO QHS 11/19/23 Unknown History bupropion HCl 200 mg tablet,12 hr 200 mg PO DAILY 11/19/23 Unknown History sustained-release cetirizine 10 mg tablet 10 mg PO QHS 11/19/23 Unknown History melatonin 5 mg capsule 5 mg PO QHS 11/19/23 Unknown History omeprazole 20 mg capsule,delayed 20 mg PO DAILY 11/19/23 Unknown History release levothyroxine 125 mcg tablet 125 mcg PO DAILY@0600 #0 tabs 11/23/23 Unknown Rx furosemide 40 mg tablet (Lasix) 40 mg PO DAILY #30 tabs 11/26/23 Unknown Rx loperamide 2 mg capsule 2 mg PO Q4H PRN PRN Diarrhea/Loose 11/26/23 Unknown Rx Stools #0 caps magnesium chloride 64 mg 128 mg (2 x 64 mg) PO BID #0 tabs 11/26/23 Unknown Rx (magnesium chloride) tablet,delayed release (Mag 64) potassium chloride 20 mEq 20 meq PO BIDCM #0 tabs 11/26/23 Unknown Rx tablet,extended release(part/cryst) sennosides 8.6 mg-docusate sodium 2 tab PO BID PRN PRN Constipation 11/26/23 Unknown Rx 50 mg tablet (Stimulant Laxative #0 tabs Plus) ondansetron 4 mg disintegrating 4 mg PO Q8H PRN PRN Nausea #10 tabs 12/01/23 Unknown Rx tablet loratadine 10 mg disintegrating 10 mg PO QHS 12/25/23 Unknown History tablet (Alavert) oxycodone 5 mg tablet 5 mg PO Q6H PRN PRN pain 12/25/23 Unknown History Allergy/AdvReac Type Severity Reaction Status Date / Time cefaclor (From Ceclor) Allergy Anaphylaxis Verified 12/25/23 20:12 chlorhexidine Allergy Hives Verified 12/25/23 20:12 codeine Allergy Anaphylaxis Verified 12/25/23 20:12 paroxetine (From Paxil) Allergy Anaphylaxis Verified 12/25/23 20:12 Penicillins Allergy Anaphylaxis Verified 12/25/23 20:12 Sulfa (Sulfonamide Allergy Anaphylaxis Verified 12/25/23 20:12 Antibiotics) Surgical History History of exploratory laparotomy S/P TKR (total knee replacement) History of shoulder replacement History of hysterectomy History of cholecystectomy Hx of appendectomy Social History household members: none Smoking Status: Former smoker alcohol intake: never ROS ROS ED ROS Narrative Denies recent illness. Constitutional Constitutional ED: Denies chills or fever(s) Eyes Eyes: Denies blurry vision ENT ENT ED: Denies ear pain Cardiovascular Cardiovascular: Denies chest pain Respiratory/Chest Respiratory/Chest: Denies cough Gastrointestinal Gastrointestinal: Denies abdominal pain Genitourinary Genitourinary ED: Denies dysuria Musculoskeletal Musculoskeletal: Denies arthralgias Integumentary Denies abscess Neurologic Neurologic: Reports headache(s) Psychiatric Psychiatric: Denies anxiety Endocrine Endocrinology: Denies polydipsia or polyphagia Hematologic/Lymphatic Hematologic/Lymphatic: Denies easy bleeding Allergic/Immunologic Allergic/Immunologic ED: Denies mouth swelling EXAM Physical Exam Narrative Exam Narrative: 63-year-old female vital signs stable afebrile. Lying in bed. Emotionally upset and tearful. No one else present in the room. H EENT exam pupils round reactive light. Extra motions are intact. Mild contusion left cheek. Tender. No bony deformity. Pupils round reactive light. Contusion left posterior scalp. No blood or laceration. C-spine nontender. Trachea midline. C-collar in place. Lungs clear to auscultation bilaterally. Heart regular rhythm rate about 90 no murmur. Chest wall and ribs nontender. Abdomen soft nontender. Pelvic girdle intact. Moving all 4 extremities. 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 Dorsi plantarflexion intact. Normal range of motion. No deformity. No bony tenderness. Neurologically she is awake and alert. No focal motor deficits. Answering questions and following commands. Const Vital Signs: 12/25/23 20:09 12/25/23 20:12 12/25/23 22:09 Temperature 98.4 F Temperature Source Oral Pulse Rate 89 84 Respiratory Rate 16 18 Respiratory Effort Normal Non-Labored Respiratory Depth Normal Respiratory Pattern Normal Blood Pressure 151/70 H 139/70 H Blood Pressure Mean 97 93 Pulse Ox 96 95 Oxygen Delivery Method Room Air Room Air Positive well nourished, well developed and obese; Negative for cachectic, contractures or unkempt General Appearance ED: well developed and NAD; Negative for unkempt, cachectic or contractures Nutritional Appearance: obese; Negative for cachectic HEENT Reports normocephalic trauma, contusion and tenderness; Negative for atraumatic Eyes PERRL and EOMs intact bilaterally General Eye ED: Negative for pale conjunctiva or scleral icterus Neck No full ROM, no lymphadenopathy and supple Neck Narrative: C-collar in place. No C-spine tenderness. General: Negative for tenderness Chest Wall inspection of chest normal and palpation of chest normal Resp normal respiratory effort, no retractions and clear to auscultation bilaterally Auscultation: Negative for rales, rhonchi, wheezes, diminished lung sounds or other Cardio regular rate, regular rhythm, S1 normal heart sound, S2 normal heart sound and no murmurs GI non-tender, non-distended and no masses Palpation: soft; Negative for guarding or rebound tenderness present Back/Spine no CVA tenderness Neuro oriented x3 and CN's II-XII intact bilaterally [place] Coma Scale: document GCS findings Spontaneous Obeys Commands Oriented 15 Sensorium / Orientation: alert, oriented to person, oriented to place and oriented to time; Negative for orientation impaired, confused, lethargic or stuporous Motor Exam: strength 5/5 throughout Psych mental status grossly normal and thought process normal Appearance: Negative for unkempt Mood & Affect: anxious and tearful Skin Lesions: no lesions Rashes: no rashes MDM MDM MDM Narrative Medical decision making narrative: 63-year-old female lost her balance fell from the second step to the floor injuring her head. CAT scan of her head facial bones and neck will be obtained. She complaining of left facial tenderness. She had a recent hypokalemia I will check screening labs. She will be given for morphine and Zofran for pain and nausea. Repeat exam patient is doing well at 10:15 PM. We went over her lab results and CAT scans. She will be ambulated. Given oral potassium here. Discharged to home on potassium. And outpatient follow-up.Patient is on potassium replacement at home. She has had hypokalemia in the past. Repeat exam otherwise is unchanged. She is comfortable being discharged to home. History & Record Review Discussion w/independent historian: Patient Additional record(s) reviewed:: Prior inpatient record, Prior outpatient record, Prior ED visit and Prior labs Lab Data Attestation: I reviewed the patient's lab results. Lab results narrative: CBC shows a white count of 6. H&H 10.9 and 31.6. Platelets 356. Electrolytes show sodium 133. Potassium of 2.5. Gap 13. BUN of 7 and creatinine of 1.27. Glucose 93. Consistent with prior labs and prior hypokalemia. Labs: Laboratory Results - last 24 hr 12/25/23 20:34 WBC 6.3 RBC 3.62 L Hgb 10.9 L Hct 31.6 L MCV 87.3 MCH 30.1 MCHC 34.5 RDW Std Deviation 49.1 H RDW Coeff of Vicki 15.3 H Plt Count 356 MPV 9.5 Immature Gran % (Auto) 0.500 Neut % (Auto) 57.7 Lymph % (Auto) 26.2 Morrow % (Auto) 13.4 H Eos % (Auto) 1.6 Baso % (Auto) 0.6 Absolute Neuts (auto) 3.6 Absolute Lymphs (auto) 1.65 Nucleated RBC % 0 Sodium 133 L Potassium 2.5 L* Chloride 94 L Carbon Dioxide 27.0 Anion Gap 13 BUN 7 Creatinine 1.27 H Estim Creat Clear Calc 53.88 Est GFR (MDRD) Af Amer 54 L Est GFR (MDRD) Non-Af 45 L BUN/Creatinine Ratio 5.5 L Glucose 93 Calcium 8.1 L Radiography Diagnostic Testing: Clinical Impression(s) from Imaging Studies Brain CT 12/25/23 20:30 IMPRESSION: Scalp hematoma. No intracranial injury noted. Electronically Signed: Jose Reddy MD at 21:37 EST Reading Location ID and State: [facility] / [place] Tel , Service support , Cervical Spine CT 12/25/23 20:30 IMPRESSION: No fracture Electronically Signed: Jose Reddy MD at 21:46 EST Reading Location ID and State: [facility] / [place] Tel , Service support , Facial/Sinus 12/25/23 20:30 IMPRESSION: No fracture Electronically Signed: Jose Reddy MD at 21:39 EST Reading Location ID and State: [facility] / [place] Tel , Service support , Discharge Plan Triage Chief Complaint: Fall ED Provider: Krunal Bhandari Dx/Rx/DC Orders Clinical Impression: Fall, Closed head injury, Hematoma of scalp, Chronic hypokalemia Instructions: ED Head Injury (Adult), ED Hypokalemia Prescriptions: No Action verapamil 240 mg tablet extended release 240 mg PO QDAY venlafaxine 150 mg capsule,extended release 24hr 150 mg PO QDAY buspirone 30 mg tablet 15 mg PO BID trazodone 100 mg tablet 100 mg PO QHS tizanidine 4 mg tablet 4 mg PO TID atorvastatin 10 mg tablet 10 mg PO QHS bupropion HCl 200 mg tablet sustained-release 12 hr 200 mg PO DAILY cetirizine 10 mg tablet 10 mg PO QHS melatonin 5 mg capsule 5 mg PO QHS omeprazole 20 mg capsule,delayed release(DR/EC) 20 mg PO DAILY levothyroxine 125 mcg Tablet 125 mcg PO DAILY@0600 Qty: 0 0RF loperamide 2 mg Capsule 2 mg PO Q4H PRN PRN (Reason: Diarrhea/Loose Stools) Qty: 0 0RF sennosides-docusate sodium [Stimulant Laxative Plus] 8.6-50 mg Tablet 2 tab PO BID PRN PRN (Reason: Constipation) Qty: 0 0RF potassium chloride 20 mEq Tablet,Er Particles/Crystals 20 meq PO BIDCM Qty: 0 0RF magnesium chloride [Mag 64] 64 mg Tablet,Delayed Release (Dr/Ec) 128 mg PO BID Qty: 0 0RF furosemide [Lasix] 40 mg tablet 40 mg PO DAILY Qty: 30 0RF ondansetron 4 mg tablet,disintegrating 4 mg PO Q8H PRN PRN (Reason: Nausea) Qty: 10 0RF loratadine [Alavert] 10 mg tablet,disintegrating 10 mg PO QHS oxycodone 5 mg tablet 5 mg PO Q6H PRN PRN (Reason: pain) Primary Care Provider: Chaparro Mejia Referrals: Chaparro Mejia MD [Primary Care Provider] - 3-5 Days Activity Restrictions/Additional Instructions: Ice to your scalp. Tylenol for pain. Follow-up with your doctor to be reexamined and to ensure your potassium is improving. It was 2.5 again tonight. Print Language: Persian Disposition Disposition: Home, Self Care
[2023-12-25] MEDS: Morphine 4 MG/ML Syringe IV (20:38)
[2023-12-25] MEDS: Ondansetron 4 MG/2 ML Vial IV (20:38)
[2023-12-25 20:39] LABS: Absolute Lymphocyte Count 1.65 X10^3/uL (0.83-4.51); Absolute Neutrophil Count 3.6 X10^3/uL (2.0-7.7); Basophil# 0.04 X10^3/uL; Basophil% 0.6 % (0-1); Eosinophils% 1.6 % (0-5); Hematocrit 31.6 % (37-47); Hemoglobin 10.9 g/dL (12.0-15.0); Lymphocyte # 1.65 X10^3/ul (0.83-4.51); Lymphocyte % 26.2 % (19-41); Mean Corp Hgb Conc 34.5 g/dL (32-36); Mean Corpuscular Hgb 30.1 pg (27.0-32.0); Mean Corpuscular Volume 87.3 fL (81-99); Mean Platelet Vol. 9.5 fl (6.2-12.0); Monocyte# 0.84 X10^3/uL; Monocyte% 13.4 % (0-10); NRBC Flagged by Analyzer 0 % (0-5); Neutrophil # 3.63 X10^3/uL (2.7-7.7); Neutrophil % 57.7 % (47-70); Platelet Count 356 K/mm3 (150-450); RBC Distribution Width CV 15.3 % (11.6-14.6); RBC Distribution Width SD 49.1 fl (35.1-43.9); Red Blood Count 3.62 M/mm3 (4.2-5.4); White Blood Count 6.3 K/mm3 (4.4-11.0)
[2023-12-25 20:56] LABS: Anion Gap 13 (5-15); BUN 7 mg/dL (7-18); BUN/Creat Ratio 5.5 RATIO (10-20); Calcium,Total 8.1 mg/dL (8.5-10.1); Chloride 94 mmol/L (98-107); Creatinine, Serum 1.27 mg/dL (0.55-1.02); EST Glomerular Filtration Rate 45 mL/min (>60); Est Glom Filt Rate - Afr Amer 54 mL/min (>60); Estimated Creatinine Clearance 53.88 ml/min; Glucose 93 mg/dL (74-106); Potassium 2.5 mmol/L (3.5-5.1); Sodium Level 133 mmol/L (136-145)
[2023-12-25 22:09] VITALS: BP 139/70; PULSE 84; RESP 18; O2SAT 95
[2023-12-25 22:20] VITALS: BP 145/74; PULSE 78; RESP 18; TEMP 36.5; O2SAT 96
[2023-12-25] MEDS: Potassium Chloride Oral Tablet 20 MEQ 60 MEQ PO (22:26)
== END 2023-12-25 22:37 | disposition home or self-care (01) ==
PROVIDERS: Emergency Provider Emergency Medicine; PCP Family Medicine; Referring Provider Emergency Medicine; Visit Provider Emergency Medicine
DX: S00.03XA Contusion of scalp, initial encounter (principal); I11.0 Hypertensive heart disease with heart failure; I50.9 Heart failure, unspecified; E87.6 Hypokalemia; W10.9XXA Fall (on) (from) unspecified stairs and steps, initial encounter; Y92.009 Unspecified place in unspecified non-institutional (private) residence as the place of occurrence of the external cause; E03.9 Hypothyroidism, unspecified; F41.9 Anxiety disorder, unspecified; F32.A Depression, unspecified; E66.9 Obesity, unspecified; E78.00 Pure hypercholesterolemia, unspecified; G56.03 Carpal tunnel syndrome, bilateral upper limbs; Z88.2 Allergy status to sulfonamides; Z88.0 Allergy status to penicillin; Z90.49 Acquired absence of other specified parts of digestive tract; Z87.19 Personal history of other diseases of the digestive system; Z79.899 Other long term (current) drug therapy; Z79.890 Hormone replacement therapy; Z96.659 Presence of unspecified artificial knee joint; Z96.619 Presence of unspecified artificial shoulder joint; Z87.891 Personal history of nicotine dependence
CPT/HCPCS: 70450; 70486; 72125; 80048; 85025; 96374; 96375; 99284; A4216; J2405

== ENCOUNTER → 2023-12-30 | Outpatient (CLI) | payer MEDICARE, MEDICAID, SELFPAY ==
[2023-12-30 18:00] LABS: Anion Gap 11 (5-15); BUN 4 mg/dL (7-18); BUN/Creat Ratio 3.4 RATIO (10-20); Calcium,Total 9.4 mg/dL (8.5-10.1); Chloride 98 mmol/L (98-107); Creatinine, Serum 1.16 mg/dL (0.55-1.02); EST Glomerular Filtration Rate 50 mL/min (>60); Est Glom Filt Rate - Afr Amer 60 mL/min (>60); Glucose 96 mg/dL (74-106); Potassium 2.8 mmol/L (3.5-5.1); Sodium Level 134 mmol/L (136-145)
[2023-12-30 18:11] LABS: International Normalized Ratio 1.1
[2024-01-02 10:10] LABS: Antithrombin 3 Function 99 % (75-135); Factor VIII Activity 221 % (56-140); Protein C, Functional 133 % (73-180); Protein S, Free 121 % (61-136); Protein S, Total 97 % (60-150); VWD Studies Interp Report Note (.); von Willebrand Factor (vWF) Ag 297 % (50-200); von Willebrand Factor Activity 193 % (50-200)
== END | disposition home or self-care (01) ==
LOC: MTLAB 13:54
PROVIDERS: PCP Family Medicine; Referring Provider Family Medicine; Visit Provider Family Medicine
DX: R79.1 Abnormal coagulation profile (principal); E87.6 Hypokalemia
CPT/HCPCS: 36415; 80048; 85240; 85245; 85246; 85300; 85303; 85305; 85306; 85610

== ENCOUNTER 2024-01-01 17:48 | Outpatient (RCR) | payer MEDICARE, MEDICAID, SELFPAY ==
[2024-01-01 17:50] LABS: Mucous, Urine 0 SEEN /hpf (<or=2+); Red Blood Cells-Urine 0 SEEN /hpf (0-5); Squamous Epithelial Cells - UA 0 SEEN /hpf (5-10)
[2024-01-01 18:08] LABS: Color, Urine Yellow (Yellow); Glucose, Dipstick Normal (Normal); Ketone-Dipstick Negative (Negative); Leukocyte Esterase-Dipstick 500 /ul (Negative); Nitrite-Dipstick Negative (Negative); Occult Blood-Urine 25 /ul (Negative); Protein-Dipstick 30 mg/dl (Negative); Specific Gravity, Urine 1.005 (1.002-1.030); Urine Bilirubin Dipstick Negative (Negative); Urine Clarity Cloudy (Clear); Urine Urobilinogen 1 mg/dl (Normal)
[2024-01-01 18:49] LABS: Bacteria 4+ /hpf (None Seen); White Blood Cells >100 SEEN /hpf (0-5)
== END 2024-01-10 23:59 ==
LOC: LABSPEC 17:48
PROVIDERS: PCP Family Medicine; Visit Provider Family Medicine
DX: N39.0 Urinary tract infection, site not specified (principal)
CPT/HCPCS: 81001; 87077; 87086; 87088; 87186

== ENCOUNTER 2024-01-02 18:38 | Inpatient (IN) | payer MEDICARE, MEDICAID, SELFPAY ==
[2024-01-02 18:39] VITALS: BP 158/74; PULSE 101; RESP 18; TEMP 37.6; O2SAT 99; BMI 39.6
[2024-01-02] MEDS: 0.9% Normal Saline (1000mL) 1,000 ML 1000 ML IV (19:44)
[2024-01-02] MEDS: Ondansetron 4 MG/2 ML Vial IV (19:44)
[2024-01-02 20:07] LABS: Absolute Lymphocyte Count 1.49 X10^3/uL (0.83-4.51); Absolute Neutrophil Count 4.1 X10^3/uL (2.0-7.7); Basophil# 0.06 X10^3/uL; Basophil% 0.9 % (0-1); Eosinophil# 0.02 X10^3/uL; Eosinophils% 0.3 % (0-5); Hematocrit 33.7 % (37-47); Hemoglobin 10.9 g/dL (12.0-15.0); Lymphocyte # 1.49 X10^3/ul (0.83-4.51); Lymphocyte % 22.4 % (19-41); Mean Corp Hgb Conc 32.3 g/dL (32-36); Mean Corpuscular Volume 89.6 fL (81-99); Mean Platelet Vol. 9.3 fl (6.2-12.0); NRBC Flagged by Analyzer 0 % (0-5); Neutrophil # 4.07 X10^3/uL (2.7-7.7); Neutrophil % 61.1 % (47-70); Platelet Count 355 K/mm3 (150-450); RBC Distribution Width CV 15.6 % (11.6-14.6); RBC Distribution Width SD 51.9 fl (35.1-43.9); Red Blood Count 3.76 M/mm3 (4.2-5.4); White Blood Count 6.7 K/mm3 (4.4-11.0)
[2024-01-02 20:25] LABS: AST(SGOT) 25 U/L (15-37); Alanine Aminotransfer ALT/SGPT 29 U/L (13-56); Albumin, Serum 2.6 g/dL (3.2-5.0); Alkaline Phosphatase 127 U/L (45-117); Anion Gap 11 (5-15); BUN 9 mg/dL (7-18); BUN/Creat Ratio 10.1 RATIO (10-20); Bilirubin, Direct 0.33 mg/dL (0.00-0.30); Calcium,Total 8.5 mg/dL (8.5-10.1); Chloride 102 mmol/L (98-107); Creatinine, Serum 0.89 mg/dL (0.55-1.02); EST Glomerular Filtration Rate 67 mL/min (>60); Est Glom Filt Rate - Afr Amer 81 mL/min (>60); Estimated Creatinine Clearance 77.08 ml/min; Globulin 3.6 g/dL (2.2-4.2); Glucose 88 mg/dL (74-106); Lipase 31 U/L (13-75); Magnesium 1.3 mg/dL (1.6-2.6); Potassium 2.8 mmol/L (3.5-5.1); Protein, Total 6.2 g/dL (6.4-8.2); Sodium Level 137 mmol/L (136-145)
[2024-01-02 20:39] VITALS: BP 142/81; PULSE 101; RESP 18; TEMP 37.3; O2SAT 97
[2024-01-02 20:59] LABS: Color, Urine Yellow (Yellow); Glucose, Dipstick Normal (Normal); Ketone-Dipstick 5 mg/dl (Negative); Leukocyte Esterase-Dipstick 500 /ul (Negative); Nitrite-Dipstick Positive (Negative); Occult Blood-Urine 10 /ul (Negative); Protein-Dipstick 15 mg/dl (Negative); Specific Gravity, Urine 1.015 (1.002-1.030); Urine Bilirubin Dipstick Negative (Negative); Urine Clarity Clear (Clear); Urine Urobilinogen Normal (Normal)
[2024-01-02 21:06] LABS: Bacteria 2+ /hpf (None Seen); Mucous, Urine 1+ /hpf (<or=2+); Red Blood Cells-Urine 0-5 SEEN /hpf (0-5); Squamous Epithelial Cells - UA 0-5 SEEN /hpf (5-10); White Blood Cells 10-25 SEEN /hpf (0-5)
[2024-01-02 21:34] VITALS: BP 150/72; PULSE 101; RESP 14; RESP 16; TEMP 37; O2SAT 98
[2024-01-02 21:39] LABS: Troponin-I HS 233 pg/mL (3.0-54.0)
[2024-01-02] MEDS: Magnesium Sulfate 2 GM in Dextrose 5%-Water (100mL Bag) 100 ML IV (21:44)
[2024-01-02] MEDS: metroNIDAZOLE 100 ML 150 MG IV (21:55)
[2024-01-02 22:00] VITALS: BP 127/65; PULSE 105; RESP 14; O2SAT 98
[2024-01-02] MEDS: Acetaminophen 325 MG Tablet 650 MG PO (22:02)
[2024-01-02] MEDS: Metoclopramide 10 MG/2 ML Vial 5 MG IV (22:02)
[2024-01-02] MEDS: Ciprofloxacin 400 MG/200 ML BAG 200 MG IV (22:11)
[2024-01-02] MEDS: Enoxaparin 120 MG/0.8 ML Syringe SC (22:11)
[2024-01-02] MEDS: Aspirin 325 MG Tablet PO (22:14)
[2024-01-02 22:39] LABS: Lactic Acid 0.6 mmol/L (0.4-1.9)
[2024-01-02 22:47] VITALS: BMI 37.5
[2024-01-02 22:49] LABS: Phosphorus 2.5 mg/dL (2.5-4.9)
[2024-01-02 22:59] VITALS: BP 158/64; PULSE 108; RESP 18; TEMP 36.1; O2SAT 99
[2024-01-02] MEDS: Potassium Chloride Oral Tablet 20 MEQ 60 MEQ PO (23:11)
[2024-01-02] MEDS: Lactated Ringers 1,000 ML 70 ML IV (23:24)
[2024-01-02] MEDS: Scopolamine 1mg/72hr Patch 1 PATCH TD (23:26)
[2024-01-02] MEDS: 0.9% Saline Lock 10 ML Syringe IV (23:28)
[2024-01-03 01:36] LABS: Troponin-I HS 154 pg/mL (3.0-54.0)
[2024-01-03] MEDS: oxyCODONE 5 MG Tablet PO ×2 (02:12→21:37)
[2024-01-03 05:19] VITALS: BMI 37.5
[2024-01-03 05:23] VITALS: BP 129/68; PULSE 105; RESP 16; TEMP 36.2; O2SAT 97
[2024-01-03] MEDS: Levothyroxine 125 MCG Tablet PO (05:24)
[2024-01-03] MEDS: metroNIDAZOLE 500 MG/100 ML BAG 100 MG IV ×3 (05:24→21:31)
[2024-01-03] MEDS: 0.9% Saline Lock 10 ML Syringe IV ×2 (05:24→21:37)
[2024-01-03] MEDS: Mag Hydrox/Al Hydrox/Simeth 30 ML UDC PO (05:29)
[2024-01-03 05:48] LABS: Absolute Lymphocyte Count 2.16 X10^3/uL (0.83-4.51); Absolute Neutrophil Count 2.6 X10^3/uL (2.0-7.7); Basophil# 0.06 X10^3/uL; Eosinophil# 0.11 X10^3/uL; Eosinophils% 1.8 % (0-5); Hematocrit 29.8 % (37-47); Hemoglobin 9.6 g/dL (12.0-15.0); Lymphocyte # 2.16 X10^3/ul (0.83-4.51); Lymphocyte % 35.4 % (19-41); Mean Corp Hgb Conc 32.2 g/dL (32-36); Mean Corpuscular Hgb 29.4 pg (27.0-32.0); Mean Corpuscular Volume 91.1 fL (81-99); Monocyte# 1.11 X10^3/uL; Monocyte% 18.2 % (0-10); NRBC Flagged by Analyzer 0 % (0-5); Neutrophil # 2.63 X10^3/uL (2.7-7.7); Neutrophil % 43.1 % (47-70); Platelet Count 303 K/mm3 (150-450); RBC Distribution Width CV 15.7 % (11.6-14.6); RBC Distribution Width SD 52.1 fl (35.1-43.9); Red Blood Count 3.27 M/mm3 (4.2-5.4); White Blood Count 6.1 K/mm3 (4.4-11.0)
[2024-01-03 06:11] LABS: ALB/GLOB Ratio 0.7 RATIO (0.9-2.4); AST(SGOT) 23 U/L (15-37); Alanine Aminotransfer ALT/SGPT 26 U/L (13-56); Albumin, Serum 2.2 g/dL (3.2-5.0); Alkaline Phosphatase 105 U/L (45-117); Anion Gap 8 (5-15); BUN 7 mg/dL (7-18); BUN/Creat Ratio 8.3 RATIO (10-20); Calcium,Total 7.7 mg/dL (8.5-10.1); Chloride 104 mmol/L (98-107); Creatinine, Serum 0.84 mg/dL (0.55-1.02); EST Glomerular Filtration Rate 72 mL/min (>60); Est Glom Filt Rate - Afr Amer 87 mL/min (>60); Estimated Creatinine Clearance 79.27 ml/min; Globulin 3.1 g/dL (2.2-4.2); Glucose 93 mg/dL (74-106); Protein, Total 5.3 g/dL (6.4-8.2); Sodium Level 135 mmol/L (136-145)
[2024-01-03] MEDS: Ondansetron 4 MG/2 ML Vial IV ×2 (08:59→21:37)
[2024-01-03] MEDS: Ciprofloxacin 200 MG/100 ML BAG 100 MG IV ×2 (09:04→22:46)
[2024-01-03] MEDS: Cyanocobalamin 500 MCG Tablet 1000 MCG PO (09:12)
[2024-01-03] MEDS: Verapamil SR 240 MG Tablet PO (09:12)
[2024-01-03] MEDS: Pantoprazole Sodium 40 MG Tablet PO (09:13)
[2024-01-03] MEDS: buPROPion (SR) 100 MG TABLET.SA 200 MG PO (09:13)
[2024-01-03] MEDS: Aspirin 81 MG TAB.CHEW PO (09:14)
[2024-01-03] MEDS: Lactobacillis Acidophilus 1 CAP PO ×4 (09:14→21:30)
[2024-01-03] MEDS: busPIRone 15 MG TABLET PO ×2 (09:14→21:30)
[2024-01-03] MEDS: Venlafaxine XR 150 MG Capsule PO (09:14)
[2024-01-03 09:57] LABS: Magnesium 2.1 mg/dL (1.6-2.6); Troponin-I HS 133 pg/mL (3.0-54.0)
[2024-01-03 11:20] VITALS: BP 150/72; PULSE 94; RESP 16; TEMP 36.6; O2SAT 98
[2024-01-03] MEDS: Potassium Phosphate 21 MM in 0.9% Normal Saline (250mL Bag) 250 ML 84 MM IV (11:46)
[2024-01-03] MEDS: Ferrous Sulfate 325 MG Tablet PO (13:23)
[2024-01-03 17:20] VITALS: BP 146/76; PULSE 96; RESP 16; TEMP 36.6; O2SAT 98
[2024-01-03] MEDS: Potassium Chloride Oral Tablet 20 MEQ 40 MEQ PO (17:42)
[2024-01-03 18:00] VITALS: BP 146/76; PULSE 96; RESP 16; TEMP 36.6; O2SAT 98
[2024-01-03] MEDS: Loratadine 10 MG Tablet PO (21:30)
[2024-01-03] MEDS: traZODone 100 MG Tablet PO (21:30)
[2024-01-03] MEDS: Atorvastatin Calcium 10 MG Tablet PO (21:31)
[2024-01-03] MEDS: MELATONIN 10 MG TABLET 5 MG PO (21:31)
[2024-01-03 21:43] VITALS: BP 120/59; PULSE 92; RESP 20; TEMP 36.8; O2SAT 99
[2024-01-03] MEDS: tiZANidine HCl 2 MG Tablet 4 MG PO (21:47)
[2024-01-04 04:45] VITALS: BP 99/45; PULSE 78; RESP 20; TEMP 36.7; O2SAT 94
[2024-01-04] MEDS: Levothyroxine 125 MCG Tablet PO (05:24)
[2024-01-04] MEDS: metroNIDAZOLE 500 MG/100 ML BAG 100 MG IV (05:24)
[2024-01-04] MEDS: Enoxaparin 40 MG/0.4 ML Syringe SC (05:24)
[2024-01-04 05:25] VITALS: BMI 38.8
[2024-01-04] MEDS: Aspirin 81 MG TAB.CHEW PO (08:46)
[2024-01-04] MEDS: Venlafaxine XR 150 MG Capsule PO (08:46)
[2024-01-04] MEDS: Cyanocobalamin 500 MCG Tablet 1000 MCG PO (08:46)
[2024-01-04] MEDS: Potassium Chloride Oral Tablet 20 MEQ 40 MEQ PO ×2 (08:46→17:41)
[2024-01-04] MEDS: buPROPion (SR) 100 MG TABLET.SA 200 MG PO (08:46)
[2024-01-04] MEDS: busPIRone 15 MG TABLET PO ×2 (08:47→21:25)
[2024-01-04] MEDS: Verapamil SR 240 MG Tablet PO (08:47)
[2024-01-04] MEDS: Lactobacillis Acidophilus 1 CAP PO ×4 (08:47→21:25)
[2024-01-04] MEDS: Pantoprazole Sodium 40 MG Tablet PO (08:47)
[2024-01-04] MEDS: Ciprofloxacin 200 MG/100 ML BAG 100 MG IV (08:56)
[2024-01-04] MEDS: Lactated Ringers 1,000 ML 100 ML IV (08:59)
[2024-01-04 09:26] VITALS: BP 108/68; PULSE 64; RESP 16; TEMP 37.1; O2SAT 98
[2024-01-04 10:45] VITALS: BP 108/68; PULSE 61; RESP 16; TEMP 37.1; O2SAT 98
[2024-01-04] MEDS: Ferrous Sulfate 325 MG Tablet PO (12:56)
[2024-01-04] MEDS: MethylPREDNISolone 125 MG/2 ML Vial 60 MG IV (13:54)
[2024-01-04 15:00] VITALS: BP 117/63; PULSE 78; RESP 16; TEMP 36.6; O2SAT 94
[2024-01-04] MEDS: Meropenem 1 GM in 0.9% Normal Saline (100mL MB+) 100 ML IV ×2 (15:38→21:25)
[2024-01-04 21:20] VITALS: BP 124/67; PULSE 86; RESP 16; TEMP 36.7; O2SAT 97
[2024-01-04] MEDS: MELATONIN 10 MG TABLET 5 MG PO (21:24)
[2024-01-04] MEDS: oxyCODONE 5 MG Tablet PO (21:24)
[2024-01-04] MEDS: Atorvastatin Calcium 10 MG Tablet PO (21:25)
[2024-01-04] MEDS: Ondansetron 4 MG/2 ML Vial IV (21:26)
[2024-01-04] MEDS: 0.9% Saline Lock 10 ML Syringe IV (21:26)
[2024-01-04] MEDS: traZODone 50 MG Tablet PO (21:27)
[2024-01-05 03:40] VITALS: BP 142/75; PULSE 94; RESP 18; TEMP 36.5; O2SAT 95
[2024-01-05 04:19] VITALS: BMI 39.2
[2024-01-05] MEDS: Mag Hydrox/Al Hydrox/Simeth 30 ML UDC PO ×3 (05:15→18:02)
[2024-01-05] MEDS: Lidocaine 2% Viscous15 ML UDC 15 ML PO (05:15)
[2024-01-05] MEDS: Enoxaparin 40 MG/0.4 ML Syringe SC (05:16)
[2024-01-05] MEDS: Levothyroxine 125 MCG Tablet PO (05:17)
[2024-01-05] MEDS: Ondansetron 4 MG/2 ML Vial IV (05:19)
[2024-01-05] MEDS: Meropenem 1 GM in 0.9% Normal Saline (100mL MB+) 100 ML IV ×3 (05:20→22:39)
[2024-01-05] MEDS: oxyCODONE 5 MG Tablet PO ×2 (05:39→11:54)
[2024-01-05 07:53] LABS: Absolute Lymphocyte Count 1.11 X10^3/uL (0.83-4.51); Absolute Neutrophil Count 6.8 X10^3/uL (2.0-7.7); Basophil# 0.01 X10^3/uL; Basophil% 0.1 % (0-1); Hematocrit 34.1 % (37-47); Hemoglobin 10.6 g/dL (12.0-15.0); Lymphocyte # 1.11 X10^3/ul (0.83-4.51); Lymphocyte % 12.6 % (19-41); Mean Corp Hgb Conc 31.1 g/dL (32-36); Mean Corpuscular Volume 93.2 fL (81-99); Mean Platelet Vol. 9.8 fl (6.2-12.0); Monocyte# 0.79 X10^3/uL; NRBC Flagged by Analyzer 0 % (0-5); Neutrophil # 6.84 X10^3/uL (2.7-7.7); Neutrophil % 77.8 % (47-70); Platelet Count 362 K/mm3 (150-450); RBC Distribution Width CV 15.8 % (11.6-14.6); RBC Distribution Width SD 54.1 fl (35.1-43.9); Red Blood Count 3.66 M/mm3 (4.2-5.4); White Blood Count 8.8 K/mm3 (4.4-11.0)
[2024-01-05 07:57] LABS: Anion Gap 6 (5-15); BUN 4 mg/dL (7-18); BUN/Creat Ratio 4.7 RATIO (10-20); Calcium,Total 8.4 mg/dL (8.5-10.1); Chloride 106 mmol/L (98-107); Creatinine, Serum 0.86 mg/dL (0.55-1.02); EST Glomerular Filtration Rate 71 mL/min (>60); Est Glom Filt Rate - Afr Amer 86 mL/min (>60); Estimated Creatinine Clearance 79.32 ml/min; Glucose 111 mg/dL (74-106); Potassium 5.3 mmol/L (3.5-5.1); Sodium Level 132 mmol/L (136-145)
[2024-01-05 09:37] VITALS: BP 143/85; PULSE 110; RESP 17; TEMP 36.6; O2SAT 94
[2024-01-05] MEDS: Pantoprazole Sodium 40 MG Tablet PO (09:50)
[2024-01-05] MEDS: buPROPion (SR) 100 MG TABLET.SA 200 MG PO (09:50)
[2024-01-05] MEDS: Aspirin 81 MG TAB.CHEW PO (09:50)
[2024-01-05] MEDS: Lactobacillis Acidophilus 1 CAP PO ×4 (09:50→22:43)
[2024-01-05] MEDS: busPIRone 15 MG TABLET PO ×2 (09:50→22:41)
[2024-01-05] MEDS: Cyanocobalamin 500 MCG Tablet 1000 MCG PO (09:50)
[2024-01-05] MEDS: Sodium Polystyrene Sulfonate 15 GM/60 ML UDC PO (09:51)
[2024-01-05] MEDS: 0.9% Saline Lock 10 ML Syringe IV (09:51)
[2024-01-05] MEDS: Venlafaxine XR 150 MG Capsule PO (09:51)
[2024-01-05] MEDS: Verapamil SR 240 MG Tablet PO (09:51)
[2024-01-05] MEDS: Ferrous Sulfate 325 MG Tablet PO (11:55)
[2024-01-05] MEDS: tiZANidine HCl 2 MG Tablet 4 MG PO (13:36)
[2024-01-05 16:00] VITALS: BP 100/59; PULSE 94; RESP 17; TEMP 36.6; O2SAT 95
[2024-01-05 21:14] VITALS: BP 108/63; PULSE 94; RESP 18; TEMP 36.6; O2SAT 92
[2024-01-05] MEDS: traZODone 50 MG Tablet PO (22:42)
[2024-01-05] MEDS: Atorvastatin Calcium 10 MG Tablet PO (22:42)
[2024-01-05] MEDS: Scopolamine 1mg/72hr Patch 1 PATCH TD (22:43)
[2024-01-05] MEDS: MELATONIN 10 MG TABLET 5 MG PO (22:43)
[2024-01-06 03:06] VITALS: BMI 39.4
[2024-01-06 03:15] VITALS: BP 120/61; PULSE 97; RESP 18; TEMP 36.7; O2SAT 94
[2024-01-06] MEDS: Levothyroxine 125 MCG Tablet PO (05:47)
[2024-01-06] MEDS: Enoxaparin 40 MG/0.4 ML Syringe SC (05:47)
[2024-01-06] MEDS: Meropenem 1 GM in 0.9% Normal Saline (100mL MB+) 100 ML IV (05:47)
[2024-01-06] MEDS: 0.9% Saline Lock 10 ML Syringe IV ×2 (05:48→23:21)
[2024-01-06 07:36] LABS: Absolute Lymphocyte Count 1.17 X10^3/uL (0.83-4.51); Absolute Neutrophil Count 5.8 X10^3/uL (2.0-7.7); Basophil# 0.06 X10^3/uL; Basophil% 0.8 % (0-1); Eosinophils% 1.3 % (0-5); Hematocrit 31.6 % (37-47); Hemoglobin 9.8 g/dL (12.0-15.0); Lymphocyte # 1.17 X10^3/ul (0.83-4.51); Lymphocyte % 14.8 % (19-41); Mean Corpuscular Volume 96.6 fL (81-99); Mean Platelet Vol. 9.7 fl (6.2-12.0); Monocyte# 0.76 X10^3/uL; Monocyte% 9.6 % (0-10); NRBC Flagged by Analyzer 0 % (0-5); Neutrophil # 5.76 X10^3/uL (2.7-7.7); Neutrophil % 72.9 % (47-70); Platelet Count 247 K/mm3 (150-450); RBC Distribution Width CV 16.4 % (11.6-14.6); RBC Distribution Width SD 58.1 fl (35.1-43.9); Red Blood Count 3.27 M/mm3 (4.2-5.4); White Blood Count 7.9 K/mm3 (4.4-11.0)
[2024-01-06 07:53] LABS: Anion Gap 7 (5-15); BUN 7 mg/dL (7-18); BUN/Creat Ratio 8.8 RATIO (10-20); Chloride 107 mmol/L (98-107); Creatinine, Serum 0.79 mg/dL (0.55-1.02); EST Glomerular Filtration Rate 77 mL/min (>60); Est Glom Filt Rate - Afr Amer 93 mL/min (>60); Estimated Creatinine Clearance 85.44 ml/min; Glucose 80 mg/dL (74-106); Potassium 5.2 mmol/L (3.5-5.1); Sodium Level 134 mmol/L (136-145)
[2024-01-06 09:15] VITALS: BP 122/51; PULSE 108; RESP 18; TEMP 36.8; O2SAT 95
[2024-01-06] MEDS: Lactobacillis Acidophilus 1 CAP PO ×4 (09:27→23:20)
[2024-01-06] MEDS: Loperamide 2 MG Capsule PO (09:27)
[2024-01-06] MEDS: oxyCODONE 5 MG Tablet PO ×2 (09:27→18:51)
[2024-01-06] MEDS: Pantoprazole Sodium 40 MG Tablet PO (09:28)
[2024-01-06] MEDS: Ferrous Sulfate 325 MG Tablet PO (09:28)
[2024-01-06] MEDS: Cyanocobalamin 500 MCG Tablet 1000 MCG PO (09:28)
[2024-01-06] MEDS: Aspirin 81 MG TAB.CHEW PO (09:28)
[2024-01-06] MEDS: buPROPion (SR) 100 MG TABLET.SA 200 MG PO (09:28)
[2024-01-06] MEDS: Verapamil SR 240 MG Tablet PO (09:28)
[2024-01-06] MEDS: Venlafaxine XR 150 MG Capsule PO (09:28)
[2024-01-06] MEDS: busPIRone 15 MG TABLET PO ×2 (09:28→23:20)
[2024-01-06] MEDS: DiphenhydrAMINE 25 MG Capsule 50 MG PO (11:35)
[2024-01-06] MEDS: Ceftriaxone 1 GM/50 ML BAG IV (12:02)
[2024-01-06 14:08] VITALS: BP 117/59; PULSE 96; RESP 16; TEMP 36.7; O2SAT 96
[2024-01-06 15:10] VITALS: PULSE 100
[2024-01-06] MEDS: tiZANidine HCl 2 MG Tablet 4 MG PO (18:48)
[2024-01-06 22:10] VITALS: BP 109/66; PULSE 77; RESP 18; TEMP 36.6; O2SAT 92
[2024-01-06] MEDS: Atorvastatin Calcium 10 MG Tablet PO (23:20)
[2024-01-06] MEDS: traZODone 50 MG Tablet PO (23:20)
[2024-01-06] MEDS: MELATONIN 10 MG TABLET 5 MG PO (23:21)
[2024-01-07 03:04] VITALS: BMI 39.4
[2024-01-07 04:15] VITALS: BP 126/57; PULSE 87; RESP 16; TEMP 36.9; O2SAT 93
[2024-01-07] MEDS: Enoxaparin 40 MG/0.4 ML Syringe SC (05:04)
[2024-01-07] MEDS: Levothyroxine 125 MCG Tablet PO (05:04)
[2024-01-07 09:31] VITALS: BP 135/64; PULSE 96; RESP 16; TEMP 37.2; O2SAT 98
[2024-01-07] MEDS: Aspirin 81 MG TAB.CHEW PO (10:11)
[2024-01-07] MEDS: busPIRone 15 MG TABLET PO (10:11)
[2024-01-07] MEDS: Lactobacillis Acidophilus 1 CAP PO ×2 (10:11→13:25)
[2024-01-07] MEDS: Venlafaxine XR 150 MG Capsule PO (10:12)
[2024-01-07] MEDS: Verapamil SR 240 MG Tablet PO (10:12)
[2024-01-07] MEDS: Cyanocobalamin 500 MCG Tablet 1000 MCG PO (10:13)
[2024-01-07] MEDS: Pantoprazole Sodium 40 MG Tablet PO (10:13)
[2024-01-07] MEDS: buPROPion (SR) 100 MG TABLET.SA 200 MG PO (10:13)
[2024-01-07] MEDS: Ferrous Sulfate 325 MG Tablet PO (10:14)
[2024-01-07] MEDS: Ceftriaxone 1 GM/50 ML BAG IV (10:17)
[2024-01-07 10:45] LABS: Absolute Lymphocyte Count 1.15 X10^3/uL (0.83-4.51); Absolute Neutrophil Count 5.3 X10^3/uL (2.0-7.7); Basophil# 0.07 X10^3/uL; Basophil% 0.9 % (0-1); Eosinophil# 0.13 X10^3/uL; Eosinophils% 1.7 % (0-5); Hematocrit 31.4 % (37-47); Hemoglobin 10.1 g/dL (12.0-15.0); Lymphocyte # 1.15 X10^3/ul (0.83-4.51); Lymphocyte % 15.4 % (19-41); Mean Corp Hgb Conc 32.2 g/dL (32-36); Mean Corpuscular Hgb 30.1 pg (27.0-32.0); Mean Corpuscular Volume 93.5 fL (81-99); Mean Platelet Vol. 9.6 fl (6.2-12.0); Monocyte# 0.84 X10^3/uL; Monocyte% 11.2 % (0-10); NRBC Flagged by Analyzer 0 % (0-5); Neutrophil # 5.26 X10^3/uL (2.7-7.7); Neutrophil % 70.3 % (47-70); Platelet Count 256 K/mm3 (150-450); RBC Distribution Width SD 54.8 fl (35.1-43.9); Red Blood Count 3.36 M/mm3 (4.2-5.4); White Blood Count 7.5 K/mm3 (4.4-11.0)
[2024-01-07 11:50] LABS: Anion Gap 8 (5-15); BUN 9 mg/dL (7-18); BUN/Creat Ratio 9.3 RATIO (10-20); Calcium,Total 8.4 mg/dL (8.5-10.1); Chloride 102 mmol/L (98-107); Creatinine, Serum 0.97 mg/dL (0.55-1.02); EST Glomerular Filtration Rate 61 mL/min (>60); Est Glom Filt Rate - Afr Amer 74 mL/min (>60); Glucose 116 mg/dL (74-106); Potassium 4.6 mmol/L (3.5-5.1); Sodium Level 131 mmol/L (136-145)
[2024-01-07 14:37] VITALS: BP 153/72; PULSE 98; RESP 18; TEMP 36.8; O2SAT 100
== END 2024-01-07 15:34 | disposition home health service (06) | DRG 689 ==
LOC: ED 19:26 → PCU 22:20
PROVIDERS: Internal Medicine; Admitting Provider Internal Medicine; Emergency Provider Emergency Medicine; PCP Family Medicine; Visit Provider Student in an Organized Health Care Education/Training Program
DX: N30.00 Acute cystitis without hematuria (principal); E43 Unspecified severe protein-calorie malnutrition; I24.89 Other forms of acute ischemic heart disease; E87.1 Hypo-osmolality and hyponatremia; E88.09 Other disorders of plasma-protein metabolism, not elsewhere classified; E66.01 Morbid (severe) obesity due to excess calories; E03.9 Hypothyroidism, unspecified; I10 Essential (primary) hypertension; D50.9 Iron deficiency anemia, unspecified; F41.8 Other specified anxiety disorders; E78.00 Pure hypercholesterolemia, unspecified; E87.6 Hypokalemia; K21.9 Gastro-esophageal reflux disease without esophagitis; M17.10 Unilateral primary osteoarthritis, unspecified knee; M62.838 Other muscle spasm; E83.42 Hypomagnesemia; K52.9 Noninfective gastroenteritis and colitis, unspecified; M19.019 Primary osteoarthritis, unspecified shoulder; E87.5 Hyperkalemia; B96.1 Klebsiella pneumoniae [K. pneumoniae] as the cause of diseases classified elsewhere; G89.4 Chronic pain syndrome; Z88.1 Allergy status to other antibiotic agents; Z88.0 Allergy status to penicillin; Z88.2 Allergy status to sulfonamides; Z90.49 Acquired absence of other specified parts of digestive tract; Z87.19 Personal history of other diseases of the digestive system; Z86.79 Personal history of other diseases of the circulatory system; Z79.899 Other long term (current) drug therapy; Z96.659 Presence of unspecified artificial knee joint; Z87.891 Personal history of nicotine dependence; Z87.440 Personal history of urinary (tract) infections; Z68.39 Body mass index [BMI] 39.0-39.9, adult; Z79.890 Hormone replacement therapy; Z98.890 Other specified postprocedural states; Z96.619 Presence of unspecified artificial shoulder joint; Z90.710 Acquired absence of both cervix and uterus
CPT/HCPCS: 36415; 70450; 74177; 80048; 80053; 80076; 81001; 83605; 83630; 83690; 83735; 84100; 84443; 84484; 85025; 85240; 85245; 85246; 85300; 85303; 85305; 85306; 85610; 87040; 87077; 87086; 87088; 87177; 87186; 87209; 87493; 87506; 93005; 93306; 94668; 97110; 97162; 97166; 97530; 97535; 97802; 97803; 99285; J2185; J7030; J7050; J7120; Q9957; Q9967; A4216; J0744; J2405

== ENCOUNTER 2024-01-19 05:05 | Day surgery (SDC) | payer MEDICARE, MEDICAID, SELFPAY ==
[2024-01-19] VITALS (9 sets, daily range): BP systolic 103–146; BP diastolic 67–83; PULSE 41–84; RESP 14–18; TEMP 36.2–36.4; O2SAT 96–100; BMI 39.1
--- NOTE | 2024-01-19 | GASB_PTH ---
PATIENT: ROSALINDA VALE LOC: EN U#:[id number] AGE/SX: 63/F ROOM: RE01/19/[address]: Dr. Madi Reeder DO : 1960 BED: DIS: 01/19/2024 SPEC #: [id number] RECD: 01/19/24 10:07 STATUS: JH RECirilo #: [id number] DEBBIE: 01/19/24 00:[address]: Madi Reeder DEPT: SURGICAL PATHOLOGY RECD BY: Ivan Gonzalez ENTERED: 01/19/24 10:08 SP TYPE: Gastric Bx OTHR DR: Chaparro Mejia MD Tissues: A - Duodenum, NOS B - Gastric mucous membrane C - Esophageal mucous membrane Procedures: Special Stain Group I Surgery Specimen Level IV Alcian Blue/PAS (control) HEADER OPERATION: EGD with biopsies PRE-OP DIAGNOSIS: Nausea/vomiting TISSUE SUBMITTED: A- Duodenal biopsy, B- Gastric body, C- Distal esophagus biopsy MICROSCOPIC DIAGNOSIS A. Duodenum, biopsy: Focal gastric metaplasia. Benign mucosal lipomatous infiltrate. B. Gastric body, biopsy: Mild chronic gastritis. See comment. C. Distal esophagus, biopsy; Gastroesophageal junction mucosa with mild chronic inflammation. 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 No evidence of dysplasia. See comment. 01/20/2024 COMMENT B. The results of immunohistochemistry for Helicobacter pylori will be reported separately ([id number]). C. Alcian blue/PAS stain with matched control supports the above diagnosis. MICROSCOPIC DESCRIPTION Slides are reviewed. GROSS DESCRIPTION A. Received in fixative is one container labeled with the patient's name and designated Duodenal biopsy. The specimen consists of two irregular fragments of light robledo soft tissue that in aggregate measure 0.7 x 0.5 x 0.1 cm. The specimen is totally submitted in one cassette. B. Received in fixative is one container labeled with the patient's name and designated Gastric body biopsy. The specimen consists of two irregular fragments of light robledo soft tissue that in aggregate measure 0.6 x 0.6 x 0.1 cm. The specimen is totally submitted in one cassette. C. Received in fixative is one container labeled with the patient's name and designated Distal esophagus biopsy. The specimen consists of multiple irregular fragments of light robledo soft tissue that in aggregate measure 1.0 x 0.3 x 0.1 cm. The specimen is totally submitted in one cassette. 01/19/2024 TC:3 CPT:[id number],01859
--- NOTE | 2024-01-19 06:30 | IMM_PTH ---
PATIENT: ROSALINDA VALE LOC: EN U#:[id number] AGE/SX: 63/F ROOM: RE01/19/[address]: Dr. Madi Reeder DO : 1960 BED: DIS: 01/19/2024 SPEC #: [id number] RECD: 01/19/24 10:33 STATUS: JH REQ #: [id number] DEBBIE: 01/19/24 06:[address]: Madi Reeder DEPT: IMMUNOHISTOCHEMISTRY RECD BY: Merlin Pena ENTERED: 01/19/24 10:33 SP TYPE: IMMUNO OTHR DR: Chaparro Mejia MD Tissues: B - Gastric mucous membrane Procedures: H Pylori (initial) PHYSICIAN & INSTITUTION [place] [id number] SPECIMEN INFORMATION: Tissue Source: B- Gastric body biopsy Clinical Info: Nausea/vomiting Specimen Number: [id number] CPT code: 06357 METHODOLOGY: Deparaffinized sections of prefer/formalin-fixed tissue or PAP/DQ stained slides are incubated with monoclonal/polyclonal antibodies/oligonucleotide probes. Localization is made via biotin free immunoperoxidase method. Appropriate controls are performed and reacted as expected. Results on target cell population are indicated in the following table: RESULTS: ANTIBODY / CLONE RESULT Block B H Pylori (polyclonal) negative These tests were developed and their performance characteristics determined by [facility]. They may not have been cleared or approved by the U.S. Food and Drug Administration. The FDA has determined that such clearance or approval is not necessary. The above immunohistochemical/dualISH markers are ordered and reviewed by the Pathologist. INTERPRETATION: B. Gastric body, biopsy: Negative for Helicobacter pylori organisms. 01/20/2024
--- NOTE | 2024-01-19 06:41 | HP.PCM_ITS ---
History and Physical Date of Admission: 01/19/24 Nurse's Note: Stomach pain and nausea is the biggest problem. This is all a result of surgery that she just went through. Lost 60 pounds as a result which is a lot of muscle. Gets really bad dizzy spells. Has fallen as a result of being dizzy. Prone to bleeding, none in stool or emesis. Complete diarrhea all of the time. [facility] Medical History Heart failure Gastroenteritis Diarrhea Small bowel ischemia Small bowel perforation Trigger finger, left ring finger Trigger finger, right ring finger Right carpal tunnel syndrome Bilateral carpal tunnel syndrome Hypothyroidism Anxiety and depression High cholesterol Hypertension Surgical History History of exploratory laparotomy S/P TKR (total knee replacement) History of shoulder replacement History of hysterectomy History of cholecystectomy Hx of appendectomy Social History household members: none Smoking Status: Former smoker alcohol intake: never HPI HPI Chief Complaint: n/v Details: ROSALINDA VALE, is a 63 F who presents to the office today for establishment with [facility]. Pt is s/p partial colectomy 10.01.23 after having ischemic colitis. Since then she has had issues with n/v, heartburn and diarrhea. She is having daily nausea and will vomit a few times per day but this is not happening every day. She has lost about 60 lbs since her surgery due to the vomiting and diarrhea. She has never had an EGD before but there was discussion of getting one while she was in the hospital but this was never done. Her diarrhea is daily and she has not had a solid bm since the surgery. She will have a bm very shortly after she eats. Surgery has cleared her and she referred here to us for further evaluation. [facility] ED visit 12.25.23 w/ hypokalemia, repleted and discharged home ROS Const Constitutional: Positive for fatigue, frequent falls, headache(s), weakness and weight change; No fever(s) ENT ENT: Positive for headache(s); No difficulty swallowing Cardio Cardiology: Positive for leg pain with exertion Gastro GI: Positive for abdominal pain, bloating, change in bowel habits, diarrhea, heartburn, Vomiting blood/hematemesis and nausea/dyspepsia; No belching, change in stool character, coffee ground emesis, constipation, cramping, difficulty swallowing, feeling full early, excessive flatus, incontinent of stools, Blood in stool, loose stools, Black,tarry stools, pain with swallowing, vomiting or other Musc Musculoskeletal: Positive for abnormal gait, joint pain, joint swelling, muscle cramps, muscle weakness, decreased muscle mass, stiffness, Arthritis, restless legs and leg pain with exertion Skin Skin: Positive for dry skin, itchy eyes and rash; No yellowing of the eye Neuro Neurology: Positive for abnormal gait, behavioral changes, dizziness, weakness, frequent falls, headache(s) and restless legs Psych Psychiatric: Positive for anxiety, Positive for behavioral changes, Positive for depression, Positive for paranoia, Positive for Compulsive Behavior, Positive for obsessions/compulsions and Positive for other (combative) Endo Endocrine: Positive for fatigue and weight change Aller/Imm Allergy/Immunologic: Positive for itchy eyes Dante/Lymp Hematologic/Lymphatic: Positive for easy bleeding and easy bruising Exam Const General: cooperative and comfortable Nutritional Appearance: average body habitus and well nourished [facility] Head: normal to inspection Ears: hearing grossly normal bilaterally Nose: external nose normal Face and sinus: normal facial exam Mouth: oral mucosae normal Throat: posterior oropharynx normal Eyes General: appearance normal, both eyes and all related structures Neck Neck: normal visual inspection Chest Chest palpation & inspection: normal inspection of the chest and normal palpation of entire chest wall Resp Effort & Inspection: normal respiratory effort Auscultation: Bilateral: Clear to Auscultation Cardio Palpation: normal PMI Rate: regular rate Rhythm: regular rhythm GI Inspection: normal to inspection Auscultation: normal bowel sounds Percussion: normal to percussion Palpation: no hepatosplenomegaly Skin General: no rashes or lesions noted Neuro General: patient alert Extrem General: normal to inspection Psych Affect: normal affect Assessment and Plan Assessment and Plan (1) Nausea and vomiting: Plan: This is a 63 yo female pt s/p partial colectomy after ischemic colitis here today for evaluation of n/v and heartburn. This has been going on since her surgery. She will need to undergo EGD to assess her stomach and esophagus for GERD, ulcer or inflammation. She will start Protonix. PCP prescribed this. -EGD -Protonix -f/u as needed I have examined the patient and the H&P has been reviewed. There are no clinical changes since date of exam.
--- NOTE | 2024-01-19 06:41 | PCM.PRE.AN2 ---
ASA Classification* ASA Classification ASA Classification: 3 Assessment & Plan Anesthesia* Anesthesia Assessment Anesthesia Assessment: Discussed sedation and/or anesthesia options, risks, benefits, and alternatives with patient/parents/legal guardian/POA. Questions invited. The patient/parents/legal guardian/POA seems to understand and agrees to proceed with anesthesia plan. Reviewed the physical assessment, medical history, allergy history and patient home medications list prior to surgery/procedure/anesthetic and documented any changes. Performed airway and anesthesia risk assessments. Anesthesia Type Anesthesia Type: MAC Anesthesia Focused Assessment* Temperature: 97.2 F Pulse Rate: 41 Blood Pressure: 146/71 Respiratory Rate: 16 Pulse Ox: 100 Airway Assessment Mouth opens: >3 cm Mallampati Score: II Focused Labs Anesthesia Preop lab: CBC WBC 7.5 K/mm3 (4.4-11.0) 01/07/24 10:35 RBC 3.36 M/mm3 (4.2-5.4) L 01/07/24 10:35 Hgb 10.1 g/dL (12.0-15.0) L 01/07/24 10:35 Hct 31.4 % (37-47) L 01/07/24 10:35 Plt Count 256 K/mm3 (150-450) 01/07/24 10:35 CHEMISTRY Potassium 4.6 mmol/L (3.5-5.1) 01/07/24 10:35 Sodium 131 mmol/L (136-145) L 01/07/24 10:35 Magnesium 2.1 mg/dL (1.6-2.6) 01/03/24 09:18 Phosphorus 2.5 mg/dL (2.5-4.9) 01/02/24 22:30 BUN 9 mg/dL (7-18) 01/07/24 10:35 Creatinine 0.97 mg/dL (0.55-1.02) 01/07/24 10:35 Glucose 116 mg/dL (74-106) H 01/07/24 10:35 POC Glucose 77 mg/dL (74-106) 11/20/23 01:33 TSH 3.540 uIU/mL (0.358-3.740) 01/03/24 05:15 COAG PT 14.0 SECONDS (11.7-14.9) 12/30/23 13:57 Pre-Assessment Diagnosis/Proposed Procedure Planned Operative Procedure(s): EGD Anesthesia History 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 When Was Last Pacemaker Check QUESTION #4 FULL TEXT: You/Your Family Experience fever (hyperthermia) with Anesthesia Last Oral Intake Last Oral intake: Last Oral Intake NPO since 23:00 01/19/24 05:51 Meds taken in AM with sips of No 01/19/24 05:51 water? 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 - job placement officer: PONV - job placement officer Female Yes 01/14/24 12:48 HX of Motion Sickness No 01/14/24 12:48 HX of N/V After Surgery Yes 01/14/24 12:48 Non-Smoker Yes 01/14/24 12:48 Duration of Surgery greater No 01/14/24 12:48 than 60 minutes Number of Risk Factors 3 01/14/24 12:48 PONV Score Moderate Risk 01/14/24 12:48 Height & Weight Height & Weight: Anesthesia: Height & Weight Height 5 ft 5 in 01/19/24 05:51 Weight: 106.594 kg 01/19/24 05:51 Body Mass Index (BMI) 39.1 01/19/24 05:51 Respiratory Assessment Respiratory Assessment - job placement officer: Respiratory Tract Infection Hx - job placement officer Hx Respiratory Tract Infection No 01/14/24 12:48 STOP Sleep Apnea STOP Sleep Apnea - job placement officer: STOP Sleep Apnea - job placement officer Hx Hypertension Yes: CONTROLLED WITH MED 01/14/24 12:48 Hx Sleep Apnea No 01/14/24 12:48 CPAP No 01/14/24 12:48 BIPAP No 01/14/24 12:48 Do you snore loudly (louder No 01/14/24 12:48 than talking or can be heard Do you often feel tired/ No 01/14/24 12:48 fatigued/ sleepy during daytime? Has anyone observed you stop No 01/14/24 12:48 breathing during sleep? STOP Results Negative 01/14/24 12:48 QUESTION #5 FULL TEXT : Do you snore loudly (louder than talking or can be heard through closed doors)? Tobacco Use History Tobacco Use History - job placement officer: Tobacco Use History - job placement officer Tobacco Use Smoking Status Former smoker 01/14/24 12:48 Hx Tobacco Use Yes 01/14/24 12:48 Years Smoking Packs Smoked per Day Smoking Cessation Date was Yes - quit smoking within 15 01/14/24 12:48 within the last 15 years years Hx Smoking Cessation Date 08/10/22 01/14/24 12:48 Hx Smoking Cessation No 01/14/24 12:48 Counseling Hematologic Medial History Hematologic Hx - job placement officer: Hematologic Medical Hx - admissions counselor Hx of Blood Transfusion No 01/14/24 12:48 Hx of Transfusion in last 3 No 01/14/24 12:48 Months Date of Last Transfusion (if within last 3 months) Ever experience any problems No 01/14/24 12:48 with transfusion(s)? Specify any problems Hx of Preganancy in last 3 N/A 01/14/24 12:48 Months Nurse Filling Out Transfusion NBUCHER 01/14/24 12:48 & Questions: Date: 01/14/24 01/14/24 12:48 Time: 12:50 01/14/24 12:48 Patient unable to answer at this time (ie. confused, unrespo /Reproduction History /Reproductive History - job placement officer: /Reproductive Hx- job placement officer Hx Now Gestational Age (in weeks): EDC: Hx Hx Para Hx Section SAB No 01/14/24 12:48 PFSH Medical History No natural teeth Wears glasses Depression Anxiety Walker as ambulation aid Arthritis Low iron Excessive bleeding Restless legs Heartburn Shortness of breath on exertion Former smoker History of echocardiogram Hypoalbuminemia Obesity (BMI 30-39.9) Suspected inflammatory bowel disease Elevated troponin Heart failure Gastroenteritis Diarrhea Small bowel perforation Small bowel ischemia Trigger finger, left ring finger Trigger finger, right ring finger Right carpal tunnel syndrome Bilateral carpal tunnel syndrome Hypothyroidism Anxiety and depression High cholesterol Hypertension Home Medications ?Medication ?Instructions ?Recorded ?Last Taken ?Type buspirone 30 mg tablet 15 mg PO BID anxiety 04/28/23 Unknown History tizanidine 4 mg tablet 4 mg PO TID muscle relaxer 04/28/23 Unknown History trazodone 100 mg tablet 100 mg PO QHS sleep 04/28/23 Unknown History venlafaxine 150 mg 150 mg PO QDAY mental health 04/28/23 Unknown History capsule,extended release 24 hr atorvastatin 10 mg tablet 10 mg PO QHS cholesterol 11/19/23 Unknown History bupropion HCl 200 mg tablet,12 hr 200 mg PO DAILY mental health 11/19/23 Unknown History sustained-release melatonin 5 mg capsule 5 mg PO QHS sleep 11/19/23 Unknown History levothyroxine 125 mcg tablet 125 mcg PO DAILY@0600 thyroid #0 11/23/23 Unknown Rx tabs furosemide 40 mg tablet (Lasix) 40 mg PO DAILY diuretic #30 tabs 11/26/23 Unknown Rx loperamide 2 mg capsule 2 mg PO Q4H PRN PRN Diarrhea/Loose 11/26/23 Unknown Rx Stools #0 caps sennosides 8.6 mg-docusate sodium 2 tab PO BID PRN PRN Constipation 11/26/23 Unknown Rx 50 mg tablet (Stimulant Laxative #0 tabs Plus) ondansetron 4 mg disintegrating 4 mg PO Q8H PRN PRN Nausea #10 tabs 12/01/23 Unknown Rx tablet loratadine 10 mg disintegrating 10 mg PO QHS allergies 12/25/23 Unknown History tablet (Alavert) hydroxyzine HCl 25 mg tablet 25 mg PO BID PRN anxiety 12/31/23 Unknown History losartan 100 1 tab PO QDAY blood pressure 12/31/23 Unknown History mg-hydrochlorothiazide 12.5 mg tablet mecobalamin (vitamin B12) 1,000 1,000 mcg PO QDAY vitamin 12/31/23 Unknown History mcg chewable tablet (B12 Active) pantoprazole 40 mg tablet,delayed 40 mg PO QDAY reflux 12/31/23 Unknown History release (Protonix) cefdinir 300 mg capsule 300 mg PO BID #10 caps 01/07/24 Unknown Rx Allergy/AdvReac Type Severity Reaction Status Date / Time cefaclor (From Ceclor) Allergy Anaphylaxis Verified 01/19/24 05:50 chlorhexidine Allergy Hives Verified 01/19/24 05:50 codeine Allergy Anaphylaxis Verified 01/19/24 05:50 paroxetine (From Paxil) Allergy Anaphylaxis Verified 01/19/24 05:50 Penicillins Allergy Anaphylaxis Verified 01/19/24 05:50 Sulfa (Sulfonamide Allergy Anaphylaxis Verified 01/19/24 05:50 Antibiotics) magnesium sulfate AdvReac Severe Nausea/Vom/ Verified 01/19/24 05:50 Diarrhea Surgical History History of carpal tunnel release of both wrists History of exploratory laparotomy S/P TKR (total knee replacement) History of shoulder replacement History of hysterectomy History of cholecystectomy Hx of appendectomy Social History household members: none Smoking Status: Former smoker alcohol intake: never Review of Systems (Anesthesia) ROS Narrative System reviewed and no additional complaints, except as documented.
--- NOTE | 2024-01-19 07:05 | OP.EGD_ITS ---
Patient Name: Migdalia Alvarado Procedure Date: 01/19/2024 6:04 AM Date of : 1960 Age: 63 Procedure: Upper GI endoscopy Indications: Epigastric abdominal pain Providers: Madi Reeder DO Referring MD: Chaparro Mejia Md Medicines: Monitored Anesthesia Care Patient Profile: This is a 63 year old female. Refer to note in patient chart for documentation of history and physical. Patient has symptoms of chronic epigastric abdominal pain, chronic nausea and chronic vomiting. Complications: No immediate complications. Procedure: Pre-Anesthesia Assessment: - Prior to the procedure, a History and Physical was performed, and patient medications and allergies were reviewed. The patient is competent. The risks and benefits of the procedure and the sedation options and risks were discussed with the patient. All questions were answered and informed consent was obtained. Patient identification and proposed procedure were verified by the physician in the pre-procedure area. Mental Status Examination: alert and oriented. Airway Examination: normal oropharyngeal airway and neck mobility. Respiratory Examination: clear to auscultation. CV Examination: normal. Prophylactic Antibiotics: The patient does not require prophylactic antibiotics. Prior Anticoagulants: The patient has taken no anticoagulant or antiplatelet agents except for NSAID medication. ASA Grade Assessment: II - A patient with mild systemic disease. After reviewing the risks and benefits, the patient was deemed in satisfactory condition to undergo the procedure. The anesthesia plan was to use monitored anesthesia care (MAC). Immediately prior to administration of medications, the patient was re-assessed for adequacy to receive sedatives. The heart rate, respiratory rate, oxygen saturations, blood pressure, adequacy of pulmonary ventilation, and response to care were monitored throughout the procedure. The physical status of the patient was re-assessed after the procedure. After obtaining informed consent, the endoscope was passed under direct vision. Throughout the procedure, the patient's blood pressure, pulse, and oxygen saturations were monitored continuously. The Endoscope was introduced through the mouth, and advanced to the second part of duodenum. The upper GI endoscopy was accomplished without difficulty. The patient tolerated the procedure well. Scope In: 6:55:39 AM Scope Out: 6:59:33 AM Total Procedure Duration Time 0 hours 3 minutes 54 seconds Findings: LA Grade A (one or more mucosal breaks less than 5 mm, not extending between tops of 2 mucosal folds) esophagitis with no bleeding was found 36 to 39 cm from the incisors. Biopsies were taken with a cold forceps for histology. Verification of patient identification for the specimen was done. Estimated blood loss was minimal. Patchy mildly erythematous mucosa without bleeding was found in the gastric body. Biopsies were taken with a cold forceps for histology. Verification of patient identification for the specimen was done. Estimated blood loss was minimal. Biopsies were taken with a cold forceps for Helicobacter pylori testing. Verification of patient identification for the specimen was done. Estimated blood loss was minimal. Patchy mildly erythematous mucosa without active bleeding and with no stigmata of bleeding was found in the duodenal bulb. Biopsies were taken with a cold forceps for histology. Verification of patient identification for the specimen was done. Estimated blood loss was minimal. Impression: - LA Grade A reflux esophagitis with no bleeding. Biopsied. - Erythematous mucosa in the gastric body. Biopsied. - Erythematous duodenopathy. Biopsied. Recommendation: - Discharge patient to home. - Resume previous diet. - Continue present medications. - Await pathology results. Procedure Code(s): --- Professional --- 87754, Esophagogastroduodenoscopy, flexible, transoral; with biopsy, single or multiple CPT copyright 2021 [employer]. All rights reserved. The codes documented in this report are preliminary and upon hcc coders review may be revised to meet current compliance requirements. Madi Reeder DO 01/19/2024 7:04:04 AM This report has been signed electronically. Number of Addenda: 0 Note Initiated On: 01/19/2024 6:04 AM
--- NOTE | 2024-01-19 07:05 | OP.CCLET_ITS ---
01/19/2024 Chaparro Mejia Md Re : Upper GI endoscopy procedure for Migdalia Alvarado Dear Jackie This procedure was performed on Friday, January 19, 2024. My impressions and recommendations are as follows: Impressions : - LA Grade A reflux esophagitis with no bleeding. Biopsied. - Erythematous mucosa in the gastric body. Biopsied. - Erythematous duodenopathy. Biopsied. Recommendations : - Discharge patient to home. - Resume previous diet. - Continue present medications. - Await pathology results. My findings are described in the full procedure note, which is enclosed. If I can be of further assistance, please feel free to contact me at . Sincerely, Madi Reeder, 01/19/2024 7:04:04 AM This report has been signed electronically.
--- NOTE | 2024-01-19 07:11 | PCM.POST.ANE ---
Anesthesia: Postop Eval I Current Vital Signs Temperature: 97.4 F Pulse Rate: 84 Blood Pressure: 103/76 Respiratory Rate: 18 Pulse Ox: 100 Oxygen Delivery Method: Room Air Assessment Airway patent: Yes Spontaneous unlabored respirations: Yes Mental status: Awake nausea: No Vomiting: No Anesthesia Complication: No Fluid Hydration Crystalloid volume administer (ml): 30 Total IV fluid infused: 30 Progress Note Anesthesia document: Postop Eval 1 completed: Yes
--- NOTE | 2024-01-19 07:25 | PCM.POSTANE2 ---
Anesthesia Postop Eval I Sum Postop Eval Completion status Anesthesia document: Postop Eval 1 completed: Yes Anesthesia Postop Eval I Summary Anesthesia Postop Eval I Summary: Anesthesia Postop Eval I: Assessment Summary Airway patent Yes 01/19/24 07:12 [email or web address] Spontaneous unlabored Yes 01/19/24 07:12 [email or web address] respirations Mental status Awake 01/19/24 07:12 [email or web address] nausea No 01/19/24 07:12 [email or web address] Vomiting No 01/19/24 07:12 [email or web address] Anesthesia Postop Eval I: Fluid Summary Crystalloid volume administer 30 01/19/24 07:12 [email or web address] (ml) Colloids volume administered ( ml) Blood Product volume administered (ml) Total IV fluid infused 30 01/19/24 07:12 [email or web address] Anesthesia Postop Eval I: Summary Notes Anesthesia Complication No 01/19/24 07:12 [email or web address] Anesthesia Complication Comment: Post-operative progress note Anesthesia: Postop Eval II Evaluation Mental status: Awake Pain Level: 0 nausea: No Vomiting: No
== END 2024-01-19 08:00 | disposition home or self-care (01) ==
LOC: EN 05:08 → AC 05:09
PROVIDERS: PCP Family Medicine; Referring Provider Family Medicine; Visit Provider Internal Medicine Gastroenterology
PROC: 0DJ08ZZ Inspection of Upper Intestinal Tract, Via Natural or Artificial Opening Endoscopic (ICD-10-PCS; CPT 43235; principal; 2024-01-19 06:25)
DX: K22.70 Barrett's esophagus without dysplasia (principal); I11.0 Hypertensive heart disease with heart failure; I50.9 Heart failure, unspecified; K31.A0 Gastric intestinal metaplasia, unspecified; K29.50 Unspecified chronic gastritis without bleeding; K21.00 Gastro-esophageal reflux disease with esophagitis, without bleeding; F41.9 Anxiety disorder, unspecified; F32.A Depression, unspecified; E66.9 Obesity, unspecified; E61.1 Iron deficiency; E03.9 Hypothyroidism, unspecified; E78.00 Pure hypercholesterolemia, unspecified; G56.03 Carpal tunnel syndrome, bilateral upper limbs; G25.81 Restless legs syndrome; Z88.2 Allergy status to sulfonamides; Z88.0 Allergy status to penicillin; Z68.39 Body mass index [BMI] 39.0-39.9, adult; Z87.19 Personal history of other diseases of the digestive system; Z90.49 Acquired absence of other specified parts of digestive tract; Z96.659 Presence of unspecified artificial knee joint; Z96.619 Presence of unspecified artificial shoulder joint; Z87.891 Personal history of nicotine dependence; Z79.899 Other long term (current) drug therapy
CPT/HCPCS: 43239; 88305; 88312; 88342; A4216; J2405

== ENCOUNTER 2024-01-22 18:11 | Inpatient (IN) | payer MEDICARE, MEDICAID, SELFPAY ==
[2024-01-22 18:12] VITALS: BP 86/52; PULSE 76; RESP 26; TEMP 35.9; O2SAT 99; BMI 39.4
--- NOTE | 2024-01-22 18:38 | EKG12_ITS ---
Test Reason : FALL Blood Pressure : */* mmHG Vent. Rate : 73 BPM Atrial Rate : * BPM P-R Int : * ms QRS Dur : 92 ms QT Int : 628 ms P-R-T Axes : * -8 137 degrees QTcB Int : 691 ms Critical Test Result: Long QTc Sinus rhythm Baseline artifact Minimal voltage criteria for LVH, may be normal variant ( R in aVL ) ST & T wave abnormality, consider inferior ischemia ST & T wave abnormality, consider anterolateral ischemia Abnormal ECG Confirmed by RADHA CAMARA, JULIUS ([id number]), supervising editor trailer YARI KWONG ([id number]) on 01/28/2024 1:26:42 P M Referred By: Confirmed By: JULIUS GARCIA MD
[2024-01-22] MEDS: 0.9% Normal Saline (1000mL) 1,000 ML 1000 ML IV (18:52)
[2024-01-22] MEDS: Diphth,Pertuss(Acell),Tet Vac 0.5 ML Vial IM (18:52)
--- NOTE | 2024-01-22 19:00 | CT_ITS ---
STUDY: CT CERVICAL SPINE WITHOUT CONTRAST REASON FOR EXAM: Female, 63 years old. Trauma RADIATION DOSAGE (If Supplied By Facility): CTDIvol = ( 31.07 ) mGy, DLP = ( 626.49 ) mGycm TECHNIQUE: High resolution transaxial imaging was performed without contrast material. Sagittal and coronal images were reconstructed. Individualized dose optimization techniques were used for this CT. COMPARISON: None FINDINGS: Normal craniovertebral junction. There are degenerative changes of the anterior atlantoaxial articulation. Normal odontoid process. There is reversal of the normal cervical lordosis. There is no acute fracture. Normal vertebral bodies and posterior osseous elements. C2-3: Normal endplates. Normal disc height and morphology. Normal central canal and intervertebral neuroforamina. C3-4: Disc space narrowing with endplate change. Spurring asymmetric to the right. Mild facet spurring. No canal stenosis. Right foraminal narrowing. C4-5: Normal endplates. Normal disc height and morphology. Facet spurring on the left Normal central canal and intervertebral neuroforamina. C5-6: Disc space narrowing. Spurring asymmetric to the right. Mild facet spurring. No canal stenosis. Right foraminal narrowing. C6-7: Disc space narrowing. Mild spurring. No canal stenosis. Mild right foraminal narrowing. C7-T1: Normal endplates. Normal disc height and morphology. Normal central canal and intervertebral neuroforamina. Normal visualized soft tissue structures. There are fibrotic densities at the lung apices. There are atherosclerotic calcifications. CT/Spine Cervical without Contras IMPRESSION: Multilevel degenerative changes, as described above. Electronically Signed: Josh Camargo MD at 20:53 EST ,
--- NOTE | 2024-01-22 19:00 | CT_ITS ---
STUDY: CT BRAIN WITHOUT CONTRAST REASON FOR EXAM: Female, 63 years old. Trauma RADIATION DOSAGE (If Supplied By Facility): CTDIvol = ( 44.99 ) mGy, DLP = ( 796.11 ) mGycm TECHNIQUE: Transaxial CT imaging of the brain was performed without administration of intravenous contrast material. Individualized dose optimization techniques were used for this CT. COMPARISON: January 02, 2024 FINDINGS: Normal soft tissue structures. Normal calvarium. There is a partially dehiscent left jugular bulb. Normal size ventricles and extra-axial spaces for the patient''s age. Normal white matter tracts of the cerebral hemispheres. Normal basal ganglia and thalami. Normal brainstem. Normal cerebellum. There is no intracranial hemorrhage. There are no findings of an acute ischemic infarction. Normal visualized paranasal sinuses. CT/Brain/Head without Contrast IMPRESSION: Normal unenhanced CT scan of the brain. Electronically Signed: Josh Camargo MD at 20:46 EST ,
--- NOTE | 2024-01-22 19:00 | ED.RN ---
Patient transported to CT
--- NOTE | 2024-01-22 19:05 | RAD_ITS ---
STUDY: X-RAY CHEST REASON FOR EXAM: Female, 63 years old. Dizziness TECHNIQUE: Frontal and lateral views of the chest. COMPARISON: None. FINDINGS: The lungs are clear and expanded. There is no demonstrated pleural abnormality. Normal size heart. Normal mediastinum and violeta. Normal visualized pulmonary arteries. There is atherosclerotic calcification of the aortic arch. Normal visualized thoracic spine. There is reverse total left shoulder replacement. There is no demonstrated abnormality of the visualized soft tissue structures of the upper abdomen. RAD/Chest PA and Lateral IMPRESSION: No acute cardiopulmonary disease. Electronically Signed: Josh Camargo MD at 20:58 EST ,
[2024-01-22 19:07] LABS: Absolute Lymphocyte Count 2.36 X10^3/uL (0.83-4.51); Basophil# 0.08 X10^3/uL; Basophil% 1.1 % (0-1); Eosinophil# 0.12 X10^3/uL; Eosinophils% 1.7 % (0-5); Hematocrit 33.2 % (37-47); Hemoglobin 11.7 g/dL (12.0-15.0); Lymphocyte # 2.36 X10^3/ul (0.83-4.51); Lymphocyte % 32.5 % (19-41); Mean Corp Hgb Conc 35.2 g/dL (32-36); Mean Corpuscular Hgb 29.7 pg (27.0-32.0); Mean Corpuscular Volume 84.3 fL (81-99); Mean Platelet Vol. 11.2 fl (6.2-12.0); Monocyte# 0.68 X10^3/uL; Monocyte% 9.4 % (0-10); NRBC Flagged by Analyzer 0 % (0-5); Neutrophil # 3.99 X10^3/uL (2.7-7.7); Neutrophil % 54.7 % (47-70); Platelet Count 351 K/mm3 (150-450); RBC Distribution Width CV 14.2 % (11.6-14.6); RBC Distribution Width SD 43.8 fl (35.1-43.9); Red Blood Count 3.94 M/mm3 (4.2-5.4); White Blood Count 7.3 K/mm3 (4.4-11.0)
[2024-01-22 19:16] LABS: D-Dimer Quantitative (DVT/PE) 0.36 FEU/ug/m (0.27-0.49)
[2024-01-22 19:27] LABS: Anion Gap 15 (5-15); BUN 12 mg/dL (7-18); BUN/Creat Ratio 6.6 RATIO (10-20); Calcium,Total 9.2 mg/dL (8.5-10.1); Chloride 86 mmol/L (98-107); Creatinine, Serum 1.83 mg/dL (0.55-1.02); EST Glomerular Filtration Rate 29 mL/min (>60); Est Glom Filt Rate - Afr Amer 36 mL/min (>60); Estimated Creatinine Clearance 37.39 ml/min; Glucose 118 mg/dL (74-106); Potassium 1.9 mmol/L (3.5-5.1); Sodium Level 125 mmol/L (136-145); Troponin-I HS (w/2H Reflex) 106 pg/mL (3.0-54.0)
--- NOTE | 2024-01-22 19:41 | ED.VIS.FALL ---
HPI HPI - Fall History of Present Illness Chief Complaint: Fall Narrative Narrative: Chief complaint and HPI: Mechanical fall and chronic dizziness. 63-year-old female with history of HLD, HTN, anxiety, depression, hyponatremia presents for evaluation after a mechanical fall. Patient states approximately 1 month ago she had a mechanical fall. She states she hit her head. She states since then she has had continuous dizziness/lightheadedness. She states that she has had multiple CT scans of the brain that have been negative. Patient states that her dizziness is constant but intermittently worsens. She states it was worse today. She states while ambulating to her chair she lost her balance due to her dizziness and she fell. She fell mostly on her right upper extremity. Denies hitting her head. No LOC. Denies headache, blurry vision, facial pain, neck pain, chest pain, shortness of breath, nausea, vomiting, diarrhea dysuria, numbness/tingling, focal weakness or deficits. Patient states that she has chronic abdominal pain but is not worse than her baseline. She does have a skin abrasion to the right forearm. Unknown if up-to-date on tetanus. Patient states she has been eating and drinking well. Patient states she used her life alert button to call for help. On EMS arrival, patient was found to be hypotensive. Review of systems: See HPI Medications: As listed on the chart Allergies: As listed on the chart PFSH: Per chart Vital signs: As listed on the chart. Reviewed. Physical exam: Gen: A&O x3, NAD Head: Normocephalic, atraumatic Eyes: No sclera icterus, conjunctiva clear, PERRL, EOMI ENT: TMs clear BL, dry mucous membranes, no swelling/lacerations/blood in the mouth or the nares, No nasal septal hematoma, no facial tenderness Neck: Trachea midline, No JVD, Nontender CV: RRR, no murmurs, no chest wall TTP Resp: Lungs CTA BL, no w/r/c GI: Abd soft, non-distended, nontender, no r/r/g Musc: Full ROM but generalized weakness, no deformity, no spinal TTP, no jez step-offs Skin: Warm, skin tear to the right forearm Neuro: Alert, oriented, grossly intact, sensation intact, GCS 15 Psych: Cooperative, appropriate mood and affect [facility] Medical History No natural teeth Wears glasses Depression Anxiety Walker as ambulation aid Arthritis Low iron Excessive bleeding Restless legs Heartburn Shortness of breath on exertion Former smoker History of echocardiogram Hypoalbuminemia Obesity (BMI 30-39.9) Suspected inflammatory bowel disease Elevated troponin Heart failure Gastroenteritis Diarrhea Small bowel perforation Small bowel ischemia Trigger finger, left ring finger Trigger finger, right ring finger Right carpal tunnel syndrome Bilateral carpal tunnel syndrome Hypothyroidism Anxiety and depression High cholesterol Hypertension Home Medications ?Medication ?Instructions ?Recorded ?Last Taken ?Type buspirone 30 mg tablet 15 mg PO BID anxiety 04/28/23 Unknown History tizanidine 4 mg tablet 4 mg PO TID muscle relaxer 04/28/23 Unknown History trazodone 100 mg tablet 100 mg PO QHS sleep 04/28/23 Unknown History venlafaxine 150 mg 150 mg PO QDAY mental health 04/28/23 Unknown History capsule,extended release 24 hr atorvastatin 10 mg tablet 10 mg PO QHS cholesterol 11/19/23 Unknown History bupropion HCl 200 mg tablet,12 hr 200 mg PO DAILY mental health 11/19/23 Unknown History sustained-release melatonin 5 mg capsule 5 mg PO QHS sleep 11/19/23 Unknown History levothyroxine 125 mcg tablet 125 mcg PO DAILY@0600 thyroid #0 11/23/23 Unknown Rx tabs furosemide 40 mg tablet (Lasix) 40 mg PO DAILY diuretic #30 tabs 11/26/23 Unknown Rx loperamide 2 mg capsule 2 mg PO Q4H PRN PRN Diarrhea/Loose 11/26/23 Unknown Rx Stools #0 caps sennosides 8.6 mg-docusate sodium 2 tab PO BID PRN PRN Constipation 11/26/23 Unknown Rx 50 mg tablet (Stimulant Laxative #0 tabs Plus) ondansetron 4 mg disintegrating 4 mg PO Q8H PRN PRN Nausea #10 tabs 12/01/23 Unknown Rx tablet loratadine 10 mg disintegrating 10 mg PO QHS allergies 12/25/23 Unknown History tablet (Alavert) hydroxyzine HCl 25 mg tablet 25 mg PO BID PRN anxiety 12/31/23 Unknown History losartan 100 1 tab PO QDAY blood pressure 12/31/23 Unknown History mg-hydrochlorothiazide 12.5 mg tablet mecobalamin (vitamin B12) 1,000 1,000 mcg PO QDAY vitamin 12/31/23 Unknown History mcg chewable tablet (B12 Active) pantoprazole 40 mg tablet,delayed 40 mg PO QDAY reflux 12/31/23 Unknown History release (Protonix) cefdinir 300 mg capsule 300 mg PO BID #10 caps 01/07/24 Unknown Rx ferrous sulfate PO 01/22/24 Unknown History potassium chloride 20 mEq 20 meq PO BID 01/22/24 Unknown History tablet,extended release verapamil 240 mg tablet,extended 240 mg PO DAILY 01/22/24 Unknown History release Allergy/AdvReac Type Severity Reaction Status Date / Time cefaclor (From Ceclor) Allergy Anaphylaxis Verified 01/22/24 18:16 chlorhexidine Allergy Hives Verified 01/22/24 18:16 codeine Allergy Anaphylaxis Verified 01/22/24 18:16 paroxetine (From Paxil) Allergy Anaphylaxis Verified 01/22/24 18:16 Penicillins Allergy Anaphylaxis Verified 01/22/24 18:16 Sulfa (Sulfonamide Allergy Anaphylaxis Verified 01/22/24 18:16 Antibiotics) magnesium sulfate AdvReac Severe Nausea/Vom/ Verified 01/22/24 18:16 Diarrhea Surgical History History of carpal tunnel release of both wrists History of exploratory laparotomy S/P TKR (total knee replacement) History of shoulder replacement History of hysterectomy History of cholecystectomy Hx of appendectomy Social History household members: none Smoking Status: Former smoker alcohol intake: never EXAM Physical Exam Const Vital Signs: 01/22/24 18:12 01/22/24 18:16 01/22/24 20:23 Temperature 96.7 F L Temperature Source Temporal Pulse Rate 76 74 Respiratory Rate 26 H 14 Respiratory Effort Normal Respiratory Depth Normal Respiratory Pattern Normal Blood Pressure 86/52 L 120/58 L Blood Pressure Mean 63 78 Pulse Ox 99 95 Oxygen Delivery Method Room Air Room Air 01/22/24 22:00 Temperature Temperature Source Pulse Rate 77 Respiratory Rate 17 Respiratory Effort Respiratory Depth Respiratory Pattern Blood Pressure 108/63 Blood Pressure Mean 78 Pulse Ox 100 Oxygen Delivery Method Room Air MDM MDM MDM Narrative Medical decision making narrative: 63-year-old female with history of HLD, HTN, anxiety, depression, hyponatremia presents for evaluation after a mechanical fall. Patient states that she lost her balance due to chronic dizziness after a closed head injury 1 month ago. On arrival, patient is hypotensive with SBP in the 80s. She denies any complaints other than her dizziness. She states that she has been eating and drinking well although she has dry mucous membranes. Differential diagnosis includes but is not limited to concussion, contusion, fracture, electrolyte abnormality, JENNIFER, dehydration, ACS, pneumonia, UTI. Fluids started. Laboratory workup ordered including imaging. NS bolus ordered. EKG and chest x-ray reviewed see below. CBC without leukocytosis. Patient has baseline anemia. BMP shows findings of dehydration including hyponatremia of 125, hypokalemia of 1.9-repeat 2.1, JENNIFER with creatinine of 1.83, hypomagnesia of 1.1, lactic acid of 5. Another NS bolus ordered including IV potassium and IV magnesium. UA negative for UTI. D-dimer unremarkable. CT of the head and cervical spine without traumatic injury or acute process. On reevaluation, patient's blood pressure has improved. Patient will warrant admission. Patient was educated on her findings. She originally refused admission due to concerns about feeding her cat. I told her that it is unsafe to leave and can result in permanent bodily harm such as . Patient has agreed to stay overnight. Hospitalist accepted admission. EKG: Interpreted by me/EM physician: EKG shows normal sinus rhythm with a heart rate of 73. There is a lot of movement artifact. No acute ischemic changes. Diagnostic: Interpreted by me/EM physician: Chest x-ray without pneumonia, effusion, cardiomegaly, pneumothorax Impression: 1. Mechanical fall 2. Dizziness 3. JENNIFER 4. Hypovolemic hypotension, resolved 5. Severe hypokalemia 6. Severe hypomagnesia 7. Acute on chronic hyponatremia 8. Right forearm skin tear Lab Data Labs: Laboratory Results - last 24 hr 01/22/24 01/22/24 01/22/24 19:00 20:00 20:18 WBC 7.3 RBC 3.94 L Hgb 11.7 L Hct 33.2 L MCV 84.3 MCH 29.7 MCHC 35.2 RDW Std Deviation 43.8 RDW Coeff of Vicki 14.2 Plt Count 351 MPV 11.2 Immature Gran % (Auto) 0.600 Neut % (Auto) 54.7 Lymph % (Auto) 32.5 [place] % (Auto) 9.4 Eos % (Auto) 1.7 Baso % (Auto) 1.1 H Absolute Neuts (auto) 4.0 Absolute Lymphs (auto) 2.36 Nucleated RBC % 0 D-Dimer Quant (PE/DVT) 0.36 Sodium 125 L Potassium 1.9 L* 2.1 L* Chloride 86 L Carbon Dioxide 24.0 Anion Gap 15 BUN 12 Creatinine 1.83 H Estim Creat Clear Calc 37.39 Est GFR (MDRD) Af Amer 36 L Est GFR (MDRD) Non-Af 29 L BUN/Creatinine Ratio 6.6 L Glucose 118 H Lactic Acid 5.0 H* Calcium 9.2 Magnesium 1.1 L Troponin I High Sens 106 H Urine Color Yellow Urine Clarity Clear Urine pH 7.0 Ur Specific [place] 1.005 Urine Protein Negative Urine Glucose (UA) Normal Urine Ketones Negative Urine Occult Blood Negative Urine Nitrite Negative Urine Bilirubin Negative Urine Urobilinogen Normal Ur Leukocyte Esterase 100 H Urine RBC 0 SEEN Urine WBC 0-5 SEEN Ur Squamous Epith Cells 5-10 SEEN Urine Bacteria 1+ Urine Mucus 0 SEEN 01/22/24 21:21 WBC RBC Hgb Hct MCV MCH MCHC RDW Std Deviation RDW Coeff of Vicki Plt Count MPV Immature Gran % (Auto) Neut % (Auto) Lymph % (Auto) [place] % (Auto) Eos % (Auto) Baso % (Auto) Absolute Neuts (auto) Absolute Lymphs (auto) Nucleated RBC % D-Dimer Quant (PE/DVT) Sodium Potassium Chloride Carbon Dioxide Anion Gap BUN Creatinine Estim Creat Clear Calc Est GFR (MDRD) Af Amer Est GFR (MDRD) Non-Af BUN/Creatinine Ratio Glucose Lactic Acid Calcium Magnesium Troponin I High Sens 85 H Urine Color Urine Clarity Urine pH Ur Specific [place] Urine Protein Urine Glucose (UA) Urine Ketones Urine Occult Blood Urine Nitrite Urine Bilirubin Urine Urobilinogen Ur Leukocyte Esterase Urine RBC Urine WBC Ur Squamous Epith Cells Urine Bacteria Urine Mucus Radiography Diagnostic Testing: Clinical Impression(s) from Imaging Studies Brain CT 01/22/24 19:00 IMPRESSION: Normal unenhanced CT scan of the brain. Electronically Signed: Josh Camargo MD at 20:46 EST , Cervical Spine CT 01/22/24 19:00 IMPRESSION: Multilevel degenerative changes, as described above. Electronically Signed: Josh Camargo MD at 20:53 EST , Chest X-Ray 01/22/24 19:05 IMPRESSION: No acute cardiopulmonary disease. Electronically Signed: Josh Camargo MD at 20:58 EST , Discharge Plan Disposition Disposition: Acute Care Hospital [facility] Discharge Date/Time: 01/22/24 22:49
--- NOTE | 2024-01-22 19:44 | EKG12_ITS ---
Test Reason : REPEAT EKG Blood Pressure : */* mmHG Vent. Rate : 73 BPM Atrial Rate : 73 BPM P-R Int : 156 ms QRS Dur : 90 ms QT Int : 366 ms P-R-T Axes : 8 -6 212 degrees QTcB Int : 403 ms Normal sinus rhythm Left ventricular hypertrophy with repolarization abnormality ( R in aVL ) Abnormal ECG Confirmed by RADHA CAMARA, JULIUS ([id number]), publications editor YARI KWONG ([id number]) on 01/28/2024 1:27:00 P M Referred By: Lilia Confirmed By: JULIUS GARCIA MD
--- NOTE | 2024-01-22 19:51 | ED.RN ---
notified Thomas about pt abnormal lab values, repeat K ordered.
[2024-01-22 20:22] LABS: Mucous, Urine 0 SEEN /hpf (<or=2+); Red Blood Cells-Urine 0 SEEN /hpf (0-5)
[2024-01-22 20:23] VITALS: BP 120/58; PULSE 74; RESP 14; O2SAT 95
[2024-01-22 20:23] LABS: Color, Urine Yellow (Yellow); Glucose, Dipstick Normal (Normal); Ketone-Dipstick Negative (Negative); Leukocyte Esterase-Dipstick 100 /ul (Negative); Nitrite-Dipstick Negative (Negative); Occult Blood-Urine Negative /ul (Negative); Protein-Dipstick Negative (Negative); Specific Gravity, Urine 1.005 (1.002-1.030); Urine Bilirubin Dipstick Negative (Negative); Urine Clarity Clear (Clear); Urine Urobilinogen Normal (Normal)
[2024-01-22 20:34] LABS: Magnesium 1.1 mg/dL (1.6-2.6); Potassium 2.1 mmol/L (3.5-5.1)
[2024-01-22 20:37] LABS: Bacteria 1+ /hpf (None Seen); Squamous Epithelial Cells - UA 5-10 SEEN /hpf (5-10); White Blood Cells 0-5 SEEN /hpf (0-5)
[2024-01-22 21:02] LABS: Reflex Troponin-HS? (from REC) Y
[2024-01-22] MEDS: Potassium Chloride 10mEq/100mL 10 MEQ/100 ML IV.SOLN. 100 MEQ IV BOLUS ×2 (21:43→23:31)
[2024-01-22] MEDS: 0.9% Normal Saline (1000mL) 1,000 ML 999 ML IV (21:43)
[2024-01-22 21:45] LABS: Troponin-I HS 85 pg/mL (3.0-54.0)
[2024-01-22 22:00] VITALS: BP 108/63; PULSE 77; RESP 17; O2SAT 100
--- NOTE | 2024-01-22 22:18 | HP.PCM.HOS_ITS ---
HPI - General General Date of Admission: 01/22/24 Date of Service: 01/22/24 Chief Complaint: Dizziness, fall. 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 following significant history of bowel ischemia with perforation requiring significant intervention, Obesity, CKD stage II per GFR trending, Chronic Hyponatremia, recent discharge 01/07/2024 following acute complicated Klebsiella urinary tract infection discharged on oral cefdinir and following this noted 01/19/2024 upper endoscopy with noted LA grade a reflux esophagitis with no bleeding, erythematous mucosa of the gastric body as well as erythematous duodenopathy all biopsied with no medication changes at that time and diet resumed who is now presenting to the [facility] ED on 01/22/2024 with mechanical fall with chronic underlying dizziness unfortunately intermittently worsening including on day of presentation noting to have been ambulating to her chair when she lost her balance and fell onto her right upper extremity with no loss of consciousness or head trauma with stable chronic abdominal discomfort that is baseline and not worsened with appropriate oral intake but given fall prompted life alert button with EMS evaluation notable for hypotension prompting ED evaluation to be cautious. From review of records 01/07/2024 discharge her potassium had been discontinued at that time but it had also during the admission been elevated. Workup in the ED included T96.7, heart rate 76, BP initially 86/52, respiratory rate 20, 99% on room air with most recent repeat vitals heart rate 74, BP 120/58, respiratory rate 14, 95% on room air, CBC with WBC 7.3, hemoglobin 0.7, MCV 84.3, platelet 351 without marked shift, D-dimer 0.36, BMP with sodium 125, potassium initially 1.9 with repeat 2.1, chloride 86, BUN/creatinine 12/1.83, GFR 29, glucose 118, lactic acid 5.0, calcium 9.2, magnesium 1.1, troponin initial 106 with repeat 85 but prior to this on 01/03/2024 had been elevated at 133, urinalysis not marked appearing, CT of the brain with no acute intracranial findings, CT cervical spine with multilevel degenerative changes with no acute findings, chest x-ray with no acute cardiopulmonary findings. In the ED patient ministered potassium 40 mill equivalent IV, magnesium 2 g IV, 2 L normal saline, Tylenol 1000 mg p.o. x 1. PFSH Medical History No natural teeth Wears glasses Depression Anxiety Walker as ambulation aid Arthritis Low iron Excessive bleeding Restless legs Heartburn Shortness of breath on exertion Former smoker History of echocardiogram Hypoalbuminemia Obesity (BMI 30-39.9) Suspected inflammatory bowel disease Elevated troponin Heart failure Gastroenteritis Diarrhea Small bowel perforation Small bowel ischemia Trigger finger, left ring finger Trigger finger, right ring finger Right carpal tunnel syndrome Bilateral carpal tunnel syndrome Hypothyroidism Anxiety and depression High cholesterol Hypertension Home Medications ?Medication ?Instructions ?Recorded ?Last Taken ?Type buspirone 30 mg tablet 15 mg PO BID anxiety 04/28/23 Unknown History tizanidine 4 mg tablet 4 mg PO TID muscle relaxer 04/28/23 Unknown History trazodone 100 mg tablet 100 mg PO QHS sleep 04/28/23 Unknown History venlafaxine 150 mg 150 mg PO QDAY mental health 04/28/23 Unknown History capsule,extended release 24 hr atorvastatin 10 mg tablet 10 mg PO QHS cholesterol 11/19/23 Unknown History bupropion HCl 200 mg tablet,12 hr 200 mg PO DAILY mental health 11/19/23 Unknown History sustained-release melatonin 5 mg capsule 5 mg PO QHS sleep 11/19/23 Unknown History levothyroxine 125 mcg tablet 125 mcg PO DAILY@0600 thyroid #0 11/23/23 Unknown Rx tabs furosemide 40 mg tablet (Lasix) 40 mg PO DAILY diuretic #30 tabs 11/26/23 Unknown Rx loperamide 2 mg capsule 2 mg PO Q4H PRN PRN Diarrhea/Loose 11/26/23 Unknown Rx Stools #0 caps sennosides 8.6 mg-docusate sodium 2 tab PO BID PRN PRN Constipation 11/26/23 Unknown Rx 50 mg tablet (Stimulant Laxative #0 tabs Plus) ondansetron 4 mg disintegrating 4 mg PO Q8H PRN PRN Nausea #10 tabs 12/01/23 Unknown Rx tablet loratadine 10 mg disintegrating 10 mg PO QHS allergies 12/25/23 Unknown History tablet (Alavert) hydroxyzine HCl 25 mg tablet 25 mg PO BID PRN anxiety 12/31/23 Unknown History losartan 100 1 tab PO QDAY blood pressure 12/31/23 Unknown History mg-hydrochlorothiazide 12.5 mg tablet mecobalamin (vitamin B12) 1,000 1,000 mcg PO QDAY vitamin 12/31/23 Unknown History mcg chewable tablet (B12 Active) pantoprazole 40 mg tablet,delayed 40 mg PO QDAY reflux 12/31/23 Unknown History release (Protonix) cefdinir 300 mg capsule 300 mg PO BID #10 caps 01/07/24 Unknown Rx ferrous sulfate PO 01/22/24 Unknown History potassium chloride 20 mEq 20 meq PO BID 01/22/24 Unknown History tablet,extended release verapamil 240 mg tablet,extended 240 mg PO DAILY 01/22/24 Unknown History release Allergy/AdvReac Type Severity Reaction Status Date / Time cefaclor (From Ceclor) Allergy Anaphylaxis Verified 01/22/24 18:16 chlorhexidine Allergy Hives Verified 01/22/24 18:16 codeine Allergy Anaphylaxis Verified 01/22/24 18:16 paroxetine (From Paxil) Allergy Anaphylaxis Verified 01/22/24 18:16 Penicillins Allergy Anaphylaxis Verified 01/22/24 18:16 Sulfa (Sulfonamide Allergy Anaphylaxis Verified 01/22/24 18:16 Antibiotics) magnesium sulfate AdvReac Severe Nausea/Vom/ Verified 01/22/24 18:16 Diarrhea Family History Mother Heart disease Father Heart disease Surgical History History of carpal tunnel release of both wrists History of exploratory laparotomy S/P TKR (total knee replacement) History of shoulder replacement History of hysterectomy History of cholecystectomy Hx of appendectomy Social History household members: none Smoking Status: Former smoker alcohol intake: never substance use type: does not use ROS ROS Narrative Admission Review of Systems: CONSTITUTIONAL: No weight loss, fever, chills, + weakness or fatigue. HEENT: + LH/dizziness. Eyes: No visual loss, blurred vision, double vision or yellow sclerae. Ears, Nose, Throat: No hearing loss, sneezing, congestion, runny nose or sore throat. SKIN: No rash or itching, lesions, wounds. CARDIOVASCULAR: +Chronic edema, LH/Dizziness. No chest pain, chest pressure or chest discomfort, palpitations, orthopnea, syncopal events. RESPIRATORY: No shortness of breath, cough or sputum, wheezing, hemoptysis. GASTROINTESTINAL: + Chronic N/V, diarrhea. No anorexia, abdominal pain, melena, BRBPR. GENITOURINARY: No dysuria, frequency, urgency or retention. NEUROLOGICAL: + LH/dizziness w/ fall. No headache, syncope, paralysis, ataxia, numbness or tingling in the extremities, focal weakness, change in bowel or bladder control, seizure. MUSCULOSKELETAL: + muscle, back pain, joint pain or stiffness. HEMATOLOGIC: + Chronic anemia, easy bleeding/bruising. LYMPHATICS: No enlarged nodes. No history of splenectomy. PSYCHIATRIC: + History of anxiety and depression. ENDOCRINOLOGIC: No reports of sweating, cold or heat intolerance. No polyuria or polydipsia. ALLERGIES: + History of anaphylaxis and hives. Vital Signs Vital Signs Vital Signs: 01/22/24 18:12 01/22/24 18:16 01/22/24 20:23 Temperature 96.7 F L Temperature Source Temporal Pulse Rate 76 74 Respiratory Rate 26 H 14 Respiratory Effort Normal Respiratory Depth Normal Respiratory Pattern Normal Blood Pressure 86/52 L 120/58 L Blood Pressure Mean 63 78 Pulse Ox 99 95 Oxygen Delivery Method Room Air Room Air 01/22/24 22:00 Temperature Temperature Source Pulse Rate 77 Respiratory Rate 17 Respiratory Effort Respiratory Depth Respiratory Pattern Blood Pressure 108/63 Blood Pressure Mean 78 Pulse Ox 100 Oxygen Delivery Method Room Air Weight Weight: 237 lb 7.005 oz Body Mass Index (BMI) 39.4 Physical Exam Narrative Physical Examination: General: Awake, alert, oriented x 3 and cooperative, laying in the bed, no acute distress, notes eager for discharge and reports already that she intends to go home in the morning. Skin: Normal color, normal turgor, no icterus, no cyanosis except occasional stage ecchymoses, significant bilateral lower extremity venous stasis skin changes. HEENT: AT/NC, EOMI, PERRLA, moderately dry MM, no carotid bruits or JVD noted. Lungs: Diminished, greater bases, mildly increased respiratory rate but no distress, no rales, ronchi or wheezing. Heart: Regular rate and rhythm; no gallop, rub audible. Abdomen: Soft, obese, NTTP, ND, hyperactive BS, no appreciated HSM. Extremities: No cyanosis, no clubbing, see skin, chronic bilateral lower extremity pedal to mid granado edema. Neurological: Patient awake, alert, oriented as noted x 3, cognitive function intact; pupils equally reactive to light and accommodation, cranial nerves gross normal, moving all 4 extremities, no focal deficits, strength moderately to severely globally creased. Psychiatric: Affect appears fatigued, no acute evidence of depressive or anxiety feelings but does have underlying history, eager to go home. Results Lab / Micro Data 01/22/24 19:00 01/22/24 20:00 Labs: Laboratory Results - last 24 hr 01/22/24 19:00: WBC 7.3, RBC 3.94 L, Hgb 11.7 L, Hct 33.2 L, MCV 84.3, MCH 29.7, MCHC 35.2, RDW Std Deviation 43.8, RDW Coeff of Vicki 14.2, Plt Count 351, MPV 11.2, Immature Gran % (Auto) 0.600, Neut % (Auto) 54.7, Lymph % (Auto) 32.5, Ransom % (Auto) 9.4, Eos % (Auto) 1.7, Baso % (Auto) 1.1 H, Absolute Neuts (auto) 4.0, Absolute Lymphs (auto) 2.36, Nucleated RBC % 0, D-Dimer Quant (PE/DVT) 0.36, Sodium 125 L, Potassium 1.9 L*, Chloride 86 L, Carbon Dioxide 24.0, Anion Gap 15, BUN 12, Creatinine 1.83 H, Estim Creat Clear Calc 37.39, Est GFR (MDRD) Af Amer 36 L, Est GFR (MDRD) Non-Af 29 L, BUN/Creatinine Ratio 6.6 L, Glucose 118 H, Lactic Acid 5.0 H*, Calcium 9.2, Troponin I High Sens 106 H 01/22/24 20:00: Potassium 2.1 L*, Magnesium 1.1 L 01/22/24 20:18: Urine Color Yellow, Urine Clarity Clear, Urine pH 7.0, Ur Specific [place] 1.005, Urine Protein Negative, Urine Glucose (UA) Normal, Urine Ketones Negative, Urine Occult Blood Negative, Urine Nitrite Negative, Urine Bilirubin Negative, Urine Urobilinogen Normal, Ur Leukocyte Esterase 100 H, Urine RBC 0 SEEN, Urine WBC 0-5 SEEN, Ur Squamous Epith Cells 5-10 SEEN, Urine Bacteria 1+, Urine Mucus 0 SEEN 01/22/24 21:21: Troponin I High Sens 85 H Imaging Radiology Impression Brain CT 01/22/24 19:00 IMPRESSION: Normal unenhanced CT scan of the brain. Electronically Signed: Josh Camargo MD at 20:46 EST , Cervical Spine CT 01/22/24 19:00 IMPRESSION: Multilevel degenerative changes, as described above. Electronically Signed: Josh Camargo MD at 20:53 EST , Chest X-Ray 01/22/24 19:05 IMPRESSION: No acute cardiopulmonary disease. Electronically Signed: Josh Camargo MD at 20:58 EST , Assessment & Plan Assessment/Plan (1) JENNIFER (acute kidney injury): PLAN: Plan The patient is a 63 y/o F w/ PMHx: Chronic Hyponatremia, Anxiety and Depression, GERD, HTN, HLD, Short gut syndrome following significant history of bowel ischemia with perforation requiring significant intervention, Obesity, CKD stage II per GFR trending, Chronic Hyponatremia, recent discharge 01/07/2024 following acute complicated Klebsiella urinary tract infection discharged on oral cefdinir and following this noted 01/19/2024 upper endoscopy with noted LA grade a reflux esophagitis with no bleeding, erythematous mucosa of the gastric body as well as erythematous duodenopathy all biopsied with no medication changes at that time and diet resumed who is now presenting to the [facility] ED on 01/22/2024 with mechanical fall with chronic underlying dizziness unfortunately intermittently worsening including on day of presentation noting to have been ambulating to her chair when she lost her balance and fell onto her right upper extremity with no loss of consciousness or head trauma with stable chronic abdominal discomfort that is baseline and not worsened with appropriate oral intake but given fall prompted life alert button with EMS evaluation notable for hypotension prompting ED evaluation to be cautious. #1. Mechanical fall, debility, dizziness suspected secondary to significant electrolyte abnormalities with acute kidney injury on CKD stage II as noted with significant acute on chronic hyponatremia, hypokalemia and hypomagnesemia suspected secondary to short gut with dehydration component with notable lactic acidosis felt secondary to severe dehydration: Will admit to PCU, maintain on fall precautions, continue to cycle cardiac enzymes although similar and improved from previously, will not repeat echocardiogram was performed during recent admission, will continue to trend BMP and magnesium levels to make sure that this is improving, will also obtain phosphorus level, will hold nephrotoxic medications and diuretic therapy, will continue to aggressively hydrate, will obtain orthostatics in AM to be cautious, we utilize loperamide but may need to use additional agents that this is not persisting. Given recent admission although patient notes diarrhea is stable chronic severe will obtain cdiff to be cautious. PT/OT/case management consulted for discharge planning. At discharge given history of severe diarrhea chronically unfortunately diuretics are may be not the best option for this patient therefore hypertensive regimen will need to be reviewed and likely adjusted. #2. Acute kidney injury on CKD stage II per previous record GFR trending: Secondary to suspected poor intake and possibly medications concurrently. Admission BUN/Cr 12/1.83, GFR 29, prior baseline creatinine noted to be 0.8-1.1. Will continue to aggressively hydrate, hold nephrotoxic medications and repeat chemistry in AM. If no improvement would consider FeNa and renal ultrasound assessment. #3. Acute on Chronic Hyponatremia: Suspected hypovolemic component in this situation given severity of labs as well as hypochloremia, admission sodium 125, during recent presentation sodium levels primarily ranged 132-135 however per review of records she has dropped into the lower 120s previously, chloride 86, will continue aggressive hydration and repeat CMP in a.m., holding diuretics as noted. #4. Hypokalemia: Admission K+ 2.1, magnesium also low at 1.1 with supplementation given, will repeat BMP serially to assure resolution. #5. Hypomagnesemia: Magnesium 1.1, 2 g IV initiated per ED physician, will give an additional 2 g and repeat magnesium level in AM. #6. Chronically elevated troponin, unclear significance: Improved since recent presentation, no chest pain complaints, EKG with no acute evidence of ischemia, 01/02/2024 troponin 233 and now upon current presentation 01/22/2024 troponin 106 with repeat delta 85, will maintain on telemetry and continue to cycle be cautious. Given elevation during recent previous admission echocardiogram was obtained 01/03/2024 with EF 55 to 60%, normal LV systolic function with no significant valvular abnormality. #7. Chronic normocytic anemia: Admission hemoglobin 11.7, MCV 84.3, baseline hemoglobin most recently 01/07/2024 hemoglobin 10.1, appears primarily 9-10 range, will continue to trend CBC. #8. Hypertension: Holding patient diuretics and losartan given JENNIFER as well as significant hyponatremia, resume once appropriate, as needed IV hydralazine in the interim. #10. Hyperlipidemia: We will continue patient home statin therapy. #11. Hypothyroidism: We will continue patient home levothyroxine regimen. #12. Anxiety and depression: Patient is on chronic venlafaxine, may be somewhat contributing but suspect more hypovolemic component, will continue but low threshold to alter if needed. Will continue Wellbutrin and BuSpar home regimen. Clarifying his patient is also listed being on as needed hydroxyzine. #13. Obesity: Weight loss and lifestyle changes encouraged. #14. GERD: Continue patient on PPI. #15. DVT prophylaxis: Heparin. #16. CODE status: Patient CHRISTINE is her daughter and living will is currently in place. Discussed CODE status at length including difference between FULL code, DNR-CCA and DNR-CC status. Following discussions about the differences in these status, requested DNR-CCA with allowance of short-term intubation. Advanced Care Planning Face to Face Time: 16 minutes. Charges/Coding Visit Charges Inpatient E&M: 83943 Init Hosp L3 Procedures Hospitalists Procedures: 83181 Advncd Care Plan 30 Min
[2024-01-22] MEDS: Magnesium Sulfate 2 GM in Dextrose 5%-Water (100mL Bag) 100 ML IV (22:34)
[2024-01-22] MEDS: Ondansetron 4 MG/2 ML Vial IV (22:34)
[2024-01-22 22:39] VITALS: BP 128/75; PULSE 77; RESP 20; TEMP 36.2; O2SAT 99
[2024-01-22 23:06] VITALS: BP 134/56; PULSE 76; RESP 18; TEMP 36.5; O2SAT 97; BMI 36.5
[2024-01-22] MEDS: 0.9% Normal Saline (1000mL) 1,000 ML 100 ML IV (23:45)
[2024-01-22 23:47] VITALS: O2SAT 97
[2024-01-22] MEDS: hydrOXYzine PAM 25 MG Capsule PO (23:48)
[2024-01-22] MEDS: MELATONIN 3 MG TABLET PO (23:48)
[2024-01-23] MEDS: Potassium Chloride Oral Tablet 20 MEQ 40 MEQ PO
[2024-01-23 00:31] LABS: Reflex Lactate? Y
[2024-01-23] MEDS: Potassium Chloride 10mEq/100mL 10 MEQ/100 ML IV.SOLN. 100 MEQ IV BOLUS ×2 (00:51→03:44)
[2024-01-23] MEDS: oxyCODONE 5 MG Tablet PO ×2 (01:08→22:36)
[2024-01-23] MEDS: traZODone 100 MG Tablet PO ×2 (01:08→21:18)
[2024-01-23 01:43] LABS: Lactic Acid 1.5 mmol/L (0.4-1.9)
[2024-01-23 01:45] LABS: Anion Gap 12 (5-15); BUN 10 mg/dL (7-18); BUN/Creat Ratio 6.9 RATIO (10-20); Calcium,Total 8.4 mg/dL (8.5-10.1); Chloride 93 mmol/L (98-107); Creatinine, Serum 1.44 mg/dL (0.55-1.02); EST Glomerular Filtration Rate 39 mL/min (>60); Est Glom Filt Rate - Afr Amer 47 mL/min (>60); Estimated Creatinine Clearance 47.14 ml/min; Glucose 100 mg/dL (74-106); Potassium 2.1 mmol/L (3.5-5.1); Sodium Level 128 mmol/L (136-145); Troponin-I HS 85 pg/mL (3.0-54.0)
[2024-01-23] MEDS: Magnesium Sulfate 2 GM in Dextrose 5%-Water (100mL Bag) 100 ML IV (02:13)
[2024-01-23 03:00] VITALS: BP 138/61; PULSE 76; RESP 18; TEMP 36.6; O2SAT 96
[2024-01-23] MEDS: Levothyroxine 125 MCG Tablet PO (05:55)
[2024-01-23 06:00] VITALS: BMI 36.5
[2024-01-23 06:46] LABS: Absolute Lymphocyte Count 1.88 X10^3/uL (0.83-4.51); Absolute Neutrophil Count 4.6 X10^3/uL (2.0-7.7); Basophil# 0.05 X10^3/uL; Basophil% 0.7 % (0-1); Eosinophil# 0.18 X10^3/uL; Eosinophils% 2.4 % (0-5); Hematocrit 28.6 % (37-47); Hemoglobin 9.8 g/dL (12.0-15.0); Lymphocyte # 1.88 X10^3/ul (0.83-4.51); Lymphocyte % 24.8 % (19-41); Mean Corp Hgb Conc 34.3 g/dL (32-36); Mean Corpuscular Hgb 29.4 pg (27.0-32.0); Mean Corpuscular Volume 85.9 fL (81-99); Mean Platelet Vol. 10.7 fl (6.2-12.0); Monocyte# 0.85 X10^3/uL; Monocyte% 11.2 % (0-10); NRBC Flagged by Analyzer 0 % (0-5); Neutrophil # 4.58 X10^3/uL (2.7-7.7); Neutrophil % 60.2 % (47-70); Platelet Count 334 K/mm3 (150-450); RBC Distribution Width CV 14.3 % (11.6-14.6); RBC Distribution Width SD 44.3 fl (35.1-43.9); Red Blood Count 3.33 M/mm3 (4.2-5.4); White Blood Count 7.6 K/mm3 (4.4-11.0)
[2024-01-23] MEDS: 0.9% Normal Saline (1000mL) 1,000 ML 100 ML IV (06:56)
[2024-01-23 07:31] LABS: ALB/GLOB Ratio 0.9 RATIO (0.9-2.4); AST(SGOT) 34 U/L (15-37); Alanine Aminotransfer ALT/SGPT 24 U/L (13-56); Albumin, Serum 2.6 g/dL (3.2-5.0); Alkaline Phosphatase 71 U/L (45-117); Anion Gap 10 (5-15); BUN 9 mg/dL (7-18); BUN/Creat Ratio 6.7 RATIO (10-20); Calcium,Total 8.3 mg/dL (8.5-10.1); Chloride 96 mmol/L (98-107); Creatinine, Serum 1.35 mg/dL (0.55-1.02); EST Glomerular Filtration Rate 42 mL/min (>60); Est Glom Filt Rate - Afr Amer 51 mL/min (>60); Estimated Creatinine Clearance 50.28 ml/min; Globulin 2.8 g/dL (2.2-4.2); Glucose 96 mg/dL (74-106); Magnesium 2.9 mg/dL (1.6-2.6); Potassium 2.3 mmol/L (3.5-5.1); Protein, Total 5.4 g/dL (6.4-8.2); Sodium Level 130 mmol/L (136-145)
[2024-01-23 09:00] VITALS: BP 117/51; PULSE 80; RESP 17; TEMP 36.5; O2SAT 96
[2024-01-23] MEDS: buPROPion (SR) 100 MG TABLET.SA 200 MG PO (09:09)
[2024-01-23] MEDS: busPIRone 15 MG TABLET PO ×2 (09:09→21:18)
[2024-01-23] MEDS: Pantoprazole Sodium 40 MG Tablet PO (09:09)
[2024-01-23] MEDS: Potassium Chloride Oral Tablet 20 MEQ PO ×2 (09:09→21:19)
[2024-01-23] MEDS: Venlafaxine XR 150 MG Capsule PO (09:09)
[2024-01-23] MEDS: Verapamil SR 240 MG Tablet PO (09:09)
[2024-01-23] MEDS: Potassium Chloride Oral Tablet 20 MEQ 60 MEQ PO (10:43)
--- NOTE | 2024-01-23 10:47 | NURSING ---
Patient refusing orthostatic BPs at this time. Patient stated she would do it later when she is ready to get back into the bed from the chair.
--- NOTE | 2024-01-23 11:03 | CASEMGMT ---
SHWETHA GALLARDO chart review: Patient was admitted on 01/02/24 and DC 01/07/24 for UTI, IBD, Hypokalemia, N/V, Hypomagesemia. See Assessment from 01/03/24. Patient was DC to home with antibiotics, HHC services, and to complete upper endoscopy which was already scheduled. Pt states she picked up antibiotics and completed medication as ordered. Pt states did not follow up with PCP, intends to call when DC home to schedule an appointment. Pt states did go to endoscopy on 01/19/24 for procedure. Pt returned to hospital 01/22/24 after a mechanical fall. Pt was admitted to PCU for hyponatremia, hypokalemia, and JENNIFER. SHWETHA GALLARDO into patient room, pt sitting in chair in no distress. Pt appears groggy, answers all questions appropriately. Pt states she felt off, thought she just needed to eat something and fell trying to get herself some food. Pt confirms has rollator and DME at home, denies any DME needs at this time. SHWETHA GALLARDO discussed DC plan with patient, she would like to return home with [facility], denies wanting placement. Pt states someone came out to her house this week to discuss starting to get an aide 1X week. SHWETHA GALLARDO believes this might have been manager community outreach. Pt denies additional questions or concerns at this time. Notified SHWETHA GALLARDO and GUANAKO on floor of patient preference for DC plan.
--- NOTE | 2024-01-23 14:56 | CHAPLAIN ---
Type of Pastoral Visit _x__ Initial Visit ___ Follow-up Visit ___ On-call Visit ___ General Patient Visit ___ Spiritual Assessment ___ Family Conference ___ Bereavement ___ Rapid Response ___ Code Blue ___ Other (describe below) Pastoral Care Referral From _x__ Patient ___ Family ___ Nurse ___ Physician ___ Dolphin Trainer ___ Facilities Maintenance Supervisor ___ Other (describe below) Sacrament/Intervention _x__ Active listening ___ Anointing ___ Restoration ___ Bereavement ___ Communion ___ Nalini exploration ___ ___ Life review ___ Prayer ___ Reconciliation ___ Sacrament of Sick _x__ Supportive presence ___ Wedding ___ Other (describe below) Pastoral Comments patient has been seen before in recent and previous admissions; pt states right away that she will not be staying overnight because my cat needs to be fed; pt is focused on her cat and declares that she is fine, just was clumsy and fell down, so I am fine; pt lives alone and she believes that she will be fine there
[2024-01-23 15:00] VITALS: BP 103/52; PULSE 74; PULSE 76; RESP 17; TEMP 36.4; O2SAT 94
--- NOTE | 2024-01-23 15:37 | PN.HOSP_ITS ---
Subjective Subjective No issues overnight, C. difficile testing is negative. Objective Data Objective Data Vital Signs: Vital Signs Temp Pulse Resp BP Pulse Ox O2 Del Method 97.5 F L 76 17 103/52 L 94 Room Air 01/23/24 15:00 01/23/24 15:00 01/23/24 15:00 01/23/24 15:00 01/23/24 15:00 01/23/24 15:00 Oxygen Delivery Method Room Air Weight: 226 lb 6.636 oz Body Mass Index (BMI) 36.5 Intake & Output: Intake and Output for Last 24 Hours 01/22/24 01/23/24 01/24/24 03:59 03:59 03:59 Intake Total 2464.00 / 2464.00 1049.00 / 1049.00 Output Total 400 / 400 750 / 750 Balance 2064.00 / 2064.00 299.00 / 299.00 Lab / Micro Data 01/23/24 06:12 01/23/24 06:12 Labs: Laboratory Results - last 24 hr 01/22/24 19:00: WBC 7.3, RBC 3.94 L, Hgb 11.7 L, Hct 33.2 L, MCV 84.3, MCH 29.7, MCHC 35.2, RDW Std Deviation 43.8, RDW Coeff of Vicki 14.2, Plt Count 351, MPV 11.2, Immature Gran % (Auto) 0.600, Neut % (Auto) 54.7, Lymph % (Auto) 32.5, Roane % (Auto) 9.4, Eos % (Auto) 1.7, Baso % (Auto) 1.1 H, Absolute Neuts (auto) 4.0, Absolute Lymphs (auto) 2.36, Nucleated RBC % 0, D-Dimer Quant (PE/DVT) 0.36, Sodium 125 L, Potassium 1.9 L*, Chloride 86 L, Carbon Dioxide 24.0, Anion Gap 15, BUN 12, Creatinine 1.83 H, Estim Creat Clear Calc 37.39, Est GFR (MDRD) Af Amer 36 L, Est GFR (MDRD) Non-Af 29 L, BUN/Creatinine Ratio 6.6 L, Glucose 118 H, Lactic Acid 5.0 H*, Calcium 9.2, Troponin I High Sens 106 H 01/22/24 20:00: Potassium 2.1 L*, Phosphorus 3.0, Magnesium 1.1 L 01/22/24 20:18: Urine Color Yellow, Urine Clarity Clear, Urine pH 7.0, Ur Specific [place] 1.005, Urine Protein Negative, Urine Glucose (UA) Normal, Urine Ketones Negative, Urine Occult Blood Negative, Urine Nitrite Negative, Urine Bilirubin Negative, Urine Urobilinogen Normal, Ur Leukocyte Esterase 100 H, Urine RBC 0 SEEN, Urine WBC 0-5 SEEN, Ur Squamous Epith Cells 5-10 SEEN, Urine Bacteria 1+, Urine Mucus 0 SEEN 01/22/24 21:21: Troponin I High Sens 85 H 01/23/24 00:59: Sodium 128 L, Potassium 2.1 L*, Chloride 93 L, Carbon Dioxide 23.0, Anion Gap 12, BUN 10, Creatinine 1.44 H, Estim Creat Clear Calc 47.14, Est GFR (MDRD) Af Amer 47 L, Est GFR (MDRD) Non-Af 39 L, BUN/Creatinine Ratio 6.9 L, Glucose 100, Lactic Acid 1.5, Calcium 8.4 L, Troponin I High Sens 85 H 01/23/24 06:12: WBC 7.6, RBC 3.33 L, Hgb 9.8 L, Hct 28.6 L, MCV 85.9, MCH 29.4, MCHC 34.3, RDW Std Deviation 44.3 H, RDW Coeff of Vicki 14.3, Plt Count 334, MPV 10.7, Immature Gran % (Auto) 0.700, Neut % (Auto) 60.2, Lymph % (Auto) 24.8, M krista % (Auto) 11.2 H, Eos % (Auto) 2.4, Baso % (Auto) 0.7, Absolute Neuts (auto) 4.6, Absolute Lymphs (auto) 1.88, Nucleated RBC % 0, Sodium 130 L, Potassium 2.3 L*, Chloride 96 L, Carbon Dioxide 23.0, Anion Gap 10, BUN 9, Creatinine 1.35 H, Estim Creat Clear Calc 50.28, Est GFR (MDRD) Af Amer 51 L, Est GFR (MDRD) Non-Af 42 L, BUN/Creatinine Ratio 6.7 L, Glucose 96, Calcium 8.3 L, Magnesium 2.9 H, Total Bilirubin 0.60, AST 34, ALT 24, Alkaline Phosphatase 71, Total Protein 5.4 L, Albumin 2.6 L, Globulin 2.8, Albumin/Globulin Ratio 0.9 Micro: Microbiology 01/23/24 13:40 Stool Clostridioides difficile (PCR) - Final Radiography Diagnostic Testing: Radiology Impression Brain CT 01/22/24 19:00 IMPRESSION: Normal unenhanced CT scan of the brain. Electronically Signed: Josh Camargo MD at 20:46 EST Reading Location ID and State: [address] [place] [address] , Service support , Cervical Spine CT 01/22/24 19:00 IMPRESSION: Multilevel degenerative changes, as described above. Electronically Signed: Josh Camargo MD at 20:53 EST Reading Location ID and State: [address] [place] [address] , Service support , Chest X-Ray 01/22/24 19:05 IMPRESSION: No acute cardiopulmonary disease. Electronically Signed: Josh Camargo MD at 20:58 EST Reading Location ID and State: [address] [place] [address] , Service support , Physical Exam Narrative General: Resting comfortably, Cooperative, No apparent distress HEENT: Atraumatic, PERRLA, EOMI, Normocephalic Oral: Moist Mucosa Neck: Supple, No JVD Lungs: Clear to auscultation, Normal air movement, No rhonchi, No wheeze, No rales Cardiovascular: Regular rate, Regular Rhythm, Normal S1, Normal S2, No murmurs Abdomen: Soft, Non Tender, Non-Distended, No Hepato-splenomegaly Extremities: No edema, Capillary Refill Less than 3 Seconds Skin: No rashes, No breakdown Musculoskeletal: No Tenderness to Palpation of Joints or Extremities Neurological: No focal neurological deficits, Motor Exam 5/5 strength throughout, Sensory exam intact to light touch and pain Psych/Mental Status: Normal Affect, Appropriate Assessment & Plan Assessment/Plan (1) JENNIFER (acute kidney injury): PLAN: Plan #1. Mechanical fall, debility, dizziness suspected secondary to significant electrolyte abnormalities with acute kidney injury on CKD stage II as noted with significant acute on chronic hyponatremia, hypokalemia and hypomagnesemia suspected secondary to short gut with dehydration component with notable lactic acidosis felt secondary to severe dehydration: Will admit to PCU, maintain on fall precautions, continue to cycle cardiac enzymes although similar and improved from previously, will not repeat echocardiogram was performed during recent admission, will continue to trend BMP and magnesium levels to make sure that this is improving, will also obtain phosphorus level, will hold nephrotoxic medications and diuretic therapy, will continue to aggressively hydrate, will obtain orthostatics in AM to be cautious, we utilize loperamide but may need to use additional agents that this is not persisting. Given recent admission although patient notes diarrhea is stable chronic severe will obtain cdiff to be cautious. PT/OT/case management consulted for discharge planning. At discharge given history of severe diarrhea chronically unfortunately diuretics are may be not the best option for this patient therefore hypertensive regimen will need to be reviewed and likely adjusted. 01/23/2024: Renal function is improving as are electrolytes, continue with IV fluids and hydration, will continue to encourage p.o. intake. Magnesium corrected to 2.9 and phosphorus was normal on admission #2. Chronically elevated troponin, unclear significance: Improved since recent presentation, no chest pain complaints, EKG with no acute evidence of ischemia, 01/02/2024 troponin 233 and now upon current presentation 01/22/2024 troponin 106 with repeat delta 85, will maintain on telemetry and continue to cycle be cautious. Given elevation during recent previous admission echocardiogram was obtained 01/03/2024 with EF 55 to 60%, normal LV systolic function with no significant valvular abnormality. #3. Chronic normocytic anemia: Admission hemoglobin 11.7, MCV 84.3, baseline hemoglobin most recently 01/07/2024 hemoglobin 10.1, appears primarily 9-10 range, will continue to trend CBC. #4. Hypertension: Holding patient diuretics and losartan given JENNIFER as well as significant hyponatremia, resume once appropriate, as needed IV hydralazine in the interim. #5. Hyperlipidemia: We will continue patient home statin therapy. #6. Hypothyroidism: We will continue patient home levothyroxine regimen. #7. Anxiety and depression: Patient is on chronic venlafaxine, may be somewhat contributing but suspect more hypovolemic component, will continue but low threshold to alter if needed. Will continue Wellbutrin and BuSpar home regimen. Clarifying his patient is also listed being on as needed hydroxyzine. #8. Obesity: Weight loss and lifestyle changes encouraged. #9. GERD: Continue patient on PPI. DVT: Heparin Charges/Coding Visit Charges Inpatient E&M: 92930 Subs Hosp L2
[2024-01-23] MEDS: 0.9% Normal Saline (1000mL) 1,000 ML 75 ML IV (16:29)
[2024-01-23 21:00] VITALS: BP 113/55; PULSE 75; RESP 18; TEMP 36.6; O2SAT 99
[2024-01-23] MEDS: Loratadine 10 MG Tablet PO (21:18)
[2024-01-23] MEDS: Atorvastatin Calcium 10 MG Tablet PO (21:19)
[2024-01-23] MEDS: Heparin Injection (Vial) 5,000 UNIT/ML VIAL 5000 UNIT SC (21:19)
[2024-01-23] MEDS: MELATONIN 10 MG TABLET 5 MG PO (21:19)
[2024-01-24 03:00] VITALS: BP 118/62; PULSE 76; RESP 18; TEMP 36.6; O2SAT 99
[2024-01-24 05:06] VITALS: BMI 37.6
[2024-01-24] MEDS: 0.9% Saline Lock 10 ML Syringe IV (05:40)
[2024-01-24] MEDS: Levothyroxine 125 MCG Tablet PO (05:40)
[2024-01-24 06:52] VITALS: O2SAT 95
[2024-01-24 07:34] LABS: Absolute Lymphocyte Count 1.97 X10^3/uL (0.83-4.51); Absolute Neutrophil Count 3.7 X10^3/uL (2.0-7.7); Basophil# 0.07 X10^3/uL; Eosinophil# 0.38 X10^3/uL; Eosinophils% 5.6 % (0-5); Hematocrit 28.2 % (37-47); Hemoglobin 9.4 g/dL (12.0-15.0); Lymphocyte # 1.97 X10^3/ul (0.83-4.51); Lymphocyte % 28.9 % (19-41); Mean Corp Hgb Conc 33.3 g/dL (32-36); Mean Corpuscular Hgb 29.7 pg (27.0-32.0); Mean Platelet Vol. 10.3 fl (6.2-12.0); Monocyte# 0.69 X10^3/uL; Monocyte% 10.1 % (0-10); NRBC Flagged by Analyzer 0 % (0-5); Neutrophil # 3.67 X10^3/uL (2.7-7.7); Platelet Count 301 K/mm3 (150-450); RBC Distribution Width CV 14.6 % (11.6-14.6); RBC Distribution Width SD 47.6 fl (35.1-43.9); Red Blood Count 3.17 M/mm3 (4.2-5.4); White Blood Count 6.8 K/mm3 (4.4-11.0)
[2024-01-24 08:04] LABS: Anion Gap 7 (5-15); BUN 6 mg/dL (7-18); BUN/Creat Ratio 4.7 RATIO (10-20); Calcium,Total 7.9 mg/dL (8.5-10.1); Chloride 104 mmol/L (98-107); Creatinine, Serum 1.27 mg/dL (0.55-1.02); EST Glomerular Filtration Rate 45 mL/min (>60); Est Glom Filt Rate - Afr Amer 54 mL/min (>60); Estimated Creatinine Clearance 54.31 ml/min; Glucose 80 mg/dL (74-106); Potassium 3.2 mmol/L (3.5-5.1); Sodium Level 135 mmol/L (136-145)
[2024-01-24 08:40] VITALS: BP 127/57; PULSE 77; RESP 18; TEMP 36.8; O2SAT 98
[2024-01-24 08:43] VITALS: PULSE 80
[2024-01-24] MEDS: Heparin Injection (Vial) 5,000 UNIT/ML VIAL 5000 UNIT SC (08:56)
[2024-01-24] MEDS: Pantoprazole Sodium 40 MG Tablet PO (08:57)
[2024-01-24] MEDS: buPROPion (SR) 100 MG TABLET.SA 200 MG PO (08:57)
[2024-01-24] MEDS: Verapamil SR 240 MG Tablet PO (08:57)
[2024-01-24] MEDS: Venlafaxine XR 150 MG Capsule PO (08:58)
[2024-01-24] MEDS: Potassium Chloride Oral Tablet 20 MEQ PO ×2 (08:58→10:29)
[2024-01-24] MEDS: busPIRone 15 MG TABLET PO (10:29)
--- NOTE | 2024-01-24 12:47 | DCINST_ITS ---
Discharge Instructions Diet Discharge Diet: 2000 Calorie Control Diet DC O2, CPAP, BIPAP needs Additional Home O2 Discharge instructions: No Dressing / Incision Discharge Activity: No Restrictions Follow Up Care Test Results: Test results from this visit will be discussed in further detail at your follow- up appointment, if applicable. Discharge Plan Admission Admit Date/Time: 01/22/24 22:18 Primary Reason for Your Visit: dizziness with a fall Attending Provider: Rosendo Avalos Primary Care Provider: Chaparro Mejia Consulting Providers: Kassie Hunt; Zia Cornejo Instructions Additional Instructions / Restrictions: Please wait until Friday to restart your home Lasix and losartan?hydrochlorothiazide medications. Continue all other home medications as normal. Please have repeat labs drawn in 5 to 7 days to ensure you are kidney function and potassium level have continued to improve. Discharge Orders/Prescriptions Prescriptions: Continued venlafaxine 150 mg capsule,extended release 24hr 150 mg PO QDAY buspirone 30 mg tablet 15 mg PO BID trazodone 100 mg tablet 100 mg PO QHS tizanidine 4 mg tablet 4 mg PO TID pantoprazole [Protonix] 40 mg tablet,delayed release (DR/EC) 40 mg PO QDAY hydroxyzine HCl 25 mg tablet 25 mg PO BID PRN (Reason: anxiety) mecobalamin (vitamin B12) [B12 Active] 1,000 mcg tablet,chewable 1,000 mcg PO QDAY atorvastatin 10 mg tablet 10 mg PO QHS bupropion HCl 200 mg tablet sustained-release 12 hr 200 mg PO DAILY melatonin 5 mg capsule 5 mg PO QHS levothyroxine 125 mcg Tablet 125 mcg PO DAILY@0600 Qty: 0 0RF loperamide 2 mg Capsule 2 mg PO Q4H PRN PRN (Reason: Diarrhea/Loose Stools) Qty: 0 0RF sennosides-docusate sodium [Stimulant Laxative Plus] 8.6-50 mg Tablet 2 tab PO BID PRN PRN (Reason: Constipation) Qty: 0 0RF ondansetron 4 mg tablet,disintegrating 4 mg PO Q8H PRN PRN (Reason: Nausea) Qty: 10 0RF loratadine [Alavert] 10 mg tablet,disintegrating 10 mg PO QHS potassium chloride 20 mEq tablet extended release 20 meq PO BID verapamil 240 mg tablet extended release 240 mg PO DAILY Held losartan-hydrochlorothiazide 100-12.5 mg tablet 1 tab PO QDAY Hold Instructions: Resume on 01/27/24. furosemide [Lasix] 40 mg tablet 40 mg PO DAILY Qty: 30 0RF Hold Instructions: Resume on 01/27/24. Discontinued cefdinir 300 mg capsule 300 mg PO BID Qty: 10 0RF ferrous sulfate PO Other Ambulatory Orders: Basic Metabolic Profile (BMP) (Routine) Timeframe: 5 Days Facility: [facility] - Location: Laboratory Ordered By: Dr. Rosendo Avalos Referrals / Follow Up: Chaparro Mejia MD [Primary Care Provider] - Disposition Disposition (needs filled in before D/C Order can be placed): Home, Self Care
--- NOTE | 2024-01-24 12:51 | DS.PCM_ITS ---
Providers Date of Admission: 01/22/24 Date of Discharge: 01/24/24 Primary Care Physician: Chaparro Mejia MD Reason For Visit: FALL, HYPONATREMIA, HYPOKALEMIA, JENNIFER Diagnosis Discharge Diagnosis (1) JENNIFER (acute kidney injury): Status: Acute Code(s): N17.9 - Acute kidney failure, unspecified Medications at Discharge Home Medications buspirone 30 mg tablet 15 mg PO BID anxiety 04/28/23 tizanidine 4 mg tablet 4 mg PO TID muscle relaxer 04/28/23 trazodone 100 mg tablet 100 mg PO QHS sleep 04/28/23 venlafaxine 150 mg capsule,extended release 24 hr 150 mg PO QDAY mental health 04/28/23 atorvastatin 10 mg tablet 10 mg PO QHS cholesterol 11/19/23 bupropion HCl 200 mg tablet,12 hr sustained-release 200 mg PO DAILY mental health 11/19/23 melatonin 5 mg capsule 5 mg PO QHS sleep 11/19/23 levothyroxine 125 mcg tablet 125 mcg PO DAILY@0600 thyroid #0 tabs 11/23/23 furosemide 40 mg tablet (Lasix) 40 mg PO DAILY diuretic #30 tabs 11/26/23 loperamide 2 mg capsule 2 mg PO Q4H PRN PRN Diarrhea/Loose Stools #0 caps 11/26/23 sennosides 8.6 mg-docusate sodium 50 mg tablet (Stimulant Laxative Plus) 2 tab PO BID PRN PRN Constipation #0 tabs 11/26/23 ondansetron 4 mg disintegrating tablet 4 mg PO Q8H PRN PRN Nausea #10 tabs 12/01/23 loratadine 10 mg disintegrating tablet (Alavert) 10 mg PO QHS allergies 12/25/23 hydroxyzine HCl 25 mg tablet 25 mg PO BID PRN anxiety 12/31/23 losartan 100 mg-hydrochlorothiazide 12.5 mg tablet 1 tab PO QDAY blood pressure 12/31/23 mecobalamin (vitamin B12) 1,000 mcg chewable tablet (B12 Active) 1,000 mcg PO QDAY vitamin 12/31/23 pantoprazole 40 mg tablet,delayed release (Protonix) 40 mg PO QDAY reflux 12/31/23 potassium chloride 20 mEq tablet,extended release 20 meq PO BID 01/22/24 verapamil 240 mg tablet,extended release 240 mg PO DAILY 01/22/24 Hospital Course Operations None Procedures - (Chest x-ray, CT cervical spine, CT brain) Summary of Care Provided Minutes Spent on Discharge: 35 Hospital Course: Patient is a 63-year-old female who presented [facility] ED on 01/22/2024 with dizziness and a fall at home. Hospital course as noted below. Patient discharged home with home health care in stable condition on 01/23. 1. JENNIFER on CKD stage II, improving ? Creatinine 1.83 on admit, baseline 0.8. Presumed prerenal secondary to dehydration. Improved with heavy IV fluid resuscitation on admit and holding home diuretics. Creatinine 1.27 on day of discharge, recommended that patient continue to hold home Lasix and losartan?hydrochlorothiazide until Friday 01/26 and have a repeat BMP done that day to confirm creatinine had returned back to baseline. 2. Severe hypokalemia, improving; hypomagnesemia, resolved ? Potassium 1.9 on admit. Magnesium 1.1, phosphorus normal. Presume secondary to dehydration and GI losses in setting of short gut syndrome. Magnesium much improved with IV replacement. Potassium improved significantly with p.o. replacement. Potassium 3.2 on day of discharge, recommended patient continue to take home potassium 20 mEq twice daily and have repeat BMP checked in 3 to 5 days after discharge to ensure potassium meds continued to improve. 3. Mechanical fall with mild acute debility ? PT/OT/case management followed. Patient stable for discharge home with home health care. 4. Hyponatremia, resolved ? Sodium 125 on admit, chloride 86. Presume secondary to dehydration. Resolved with IV fluid resuscitation. 5. Elevated lactic acid, resolved ? Lactic acid 5.0 on admit. Presume secondary to dehydration, resolved with IV fluid resuscitation. Chronic medical conditions: ? Class II obesity: BMI 37 on admit. Complicated hospital course, care and prognosis. ? Chronic anemia: Hemoglobin remained stable at baseline 9-10 during hospitalization. ? Hypertension: Held home losartan hydrochlorothiazide and Lasix during hospitalization and recommended patient restart these on Friday 01/26 after discharge. Continue home verapamil. ? Hyperlipidemia: Continue home statin. ? Hypothyroidism: Continue home Synthroid. ? Anxiety/depression: Continue home BuSpar, bupropion, and venlafaxine. ? GERD: Continue home PPI. ? Short gut syndrome Total clinical time spent by myself addressing the patient's medical issues, reviewing all the data, and collaborating with patient's care team: 35 minutes. Physical Exam Narrative General: Resting comfortably, Cooperative, No apparent distress HEENT: Atraumatic, PERRLA, EOMI, Normocephalic Oral: Moist Mucosa Neck: Supple, No JVD Lungs: Clear to auscultation, Normal air movement, No rhonchi, No wheeze, No rales Cardiovascular: Regular rate, Regular Rhythm, Normal S1, Normal S2, No murmurs Abdomen: Soft, Non Tender, Non-Distended, No Hepato-splenomegaly Extremities: No edema, Capillary Refill Less than 3 Seconds Skin: No rashes, No breakdown Musculoskeletal: No Tenderness to Palpation of Joints or Extremities Neurological: No focal neurological deficits, Motor Exam 5/5 strength throughout, Sensory exam intact to light touch and pain Psych/Mental Status: Normal Affect, Appropriate Weight / BMI Weight Weight: 105.8 kg Body Mass Index (BMI) 37.6 ABG / Lab / Microbiology Data 01/24/24 07:20 01/24/24 07:20 Laboratory: Laboratory Results - last 24 hr 01/24/24 07:20: WBC 6.8, RBC 3.17 L, Hgb 9.4 L, Hct 28.2 L, MCV 89.0, MCH 29.7, MCHC 33.3, RDW Std Deviation 47.6 H, RDW Coeff of Vicki 14.6, Plt Count 301, MPV 10.3, Immature Gran % (Auto) 0.400, Neut % (Auto) 54.0, Lymph % (Auto) 28.9, M krista % (Auto) 10.1 H, Eos % (Auto) 5.6 H, Baso % (Auto) 1.0, Absolute Neuts (auto) 3.7, Absolute Lymphs (auto) 1.97, Nucleated RBC % 0, Sodium 135 L, P otassium 3.2 L, Chloride 104, Carbon Dioxide 24.0, Anion Gap 7, BUN 6 L, C reatinine 1.27 H, Estim Creat Clear Calc 54.31, Est GFR (MDRD) Af Amer 54 L, Est GFR (MDRD) Non-Af 45 L, BUN/Creatinine Ratio 4.7 L, Glucose 80, Calcium 7.9 L Microbiology: Microbiology 01/23/24 13:40 Stool Clostridioides difficile (PCR) - Final D/C Instructions Discharge Diet: 2000 Calorie Control Diet DC O2, CPAP, BIPAP Needs Additional Home O2 Discharge instructions: No DC home with Oxygen: No Meaningful Use Info Meaningful Use Meaningful Use Diagnoses (Choose all that apply): None applicable Ischemic Stroke Statin Dosing Therapy Reference: STATIN DOSE THERAPY REFERENCE: * Patients > 75 years receive moderate or high dose statin therapy. * Patients 75 years or YOUNGER should receive HIGH intensity statin dose unless contraindicated. You will be required to document reason for non-treatment if statin daily dose does not meet guidelines. HIGH DOSE STATIN THERAPY DAILY Atorvastatin > than or = to 40 mg Rosuvastatin > than or = to 20 mg Amlodipine + Atorvastatin > than or = to 2.5/40 mg Ezetimibe + Simvastatin 10/80 mg Simvastatin 80mg Discharge Plan Admission Admit Date/Time: 01/22/24 22:18 Primary Reason for Your Visit: dizziness with a fall Attending Provider: Rosendo Avalos Primary Care Provider: Chaparro Mejia Consulting Providers: Kassie Hunt; Zia Cornejo Instructions Additional Instructions / Restrictions: Please wait until Friday to restart your home Lasix and losartan?hydrochlorothiazide medications. Continue all other home medications as normal. Please have repeat labs drawn in 5 to 7 days to ensure you are kidney function and potassium level have continued to improve. Discharge Orders/Prescriptions Prescriptions: Continued venlafaxine 150 mg capsule,extended release 24hr 150 mg PO QDAY buspirone 30 mg tablet 15 mg PO BID trazodone 100 mg tablet 100 mg PO QHS tizanidine 4 mg tablet 4 mg PO TID pantoprazole [Protonix] 40 mg tablet,delayed release (DR/EC) 40 mg PO QDAY hydroxyzine HCl 25 mg tablet 25 mg PO BID PRN (Reason: anxiety) mecobalamin (vitamin B12) [B12 Active] 1,000 mcg tablet,chewable 1,000 mcg PO QDAY atorvastatin 10 mg tablet 10 mg PO QHS bupropion HCl 200 mg tablet sustained-release 12 hr 200 mg PO DAILY melatonin 5 mg capsule 5 mg PO QHS levothyroxine 125 mcg Tablet 125 mcg PO DAILY@0600 Qty: 0 0RF loperamide 2 mg Capsule 2 mg PO Q4H PRN PRN (Reason: Diarrhea/Loose Stools) Qty: 0 0RF sennosides-docusate sodium [Stimulant Laxative Plus] 8.6-50 mg Tablet 2 tab PO BID PRN PRN (Reason: Constipation) Qty: 0 0RF ondansetron 4 mg tablet,disintegrating 4 mg PO Q8H PRN PRN (Reason: Nausea) Qty: 10 0RF loratadine [Alavert] 10 mg tablet,disintegrating 10 mg PO QHS potassium chloride 20 mEq tablet extended release 20 meq PO BID verapamil 240 mg tablet extended release 240 mg PO DAILY Held losartan-hydrochlorothiazide 100-12.5 mg tablet 1 tab PO QDAY Hold Instructions: Resume on 01/27/24. furosemide [Lasix] 40 mg tablet 40 mg PO DAILY Qty: 30 0RF Hold Instructions: Resume on 01/27/24. Discontinued cefdinir 300 mg capsule 300 mg PO BID Qty: 10 0RF ferrous sulfate PO Other Ambulatory Orders: Basic Metabolic Profile (BMP) (Routine) Timeframe: 5 Days Facility: [facility] - Location: Laboratory Ordered By: Dr. Rosendo Avalos Referrals / Follow Up: Chaparro Mejia MD [Primary Care Provider] - Disposition Disposition (needs filled in before D/C Order can be placed): Home, Self Care Charges/Coding Visit Charges Inpatient E&M: 83276 Disch Hosp >30min
--- NOTE | 2024-01-24 14:25 | CASEMGMT ---
Social Work Charge nurse reports pt does not have a ride home. Phone call to Provide a Ride through [employer]. SW spoke with Felecia and transportation was arranged for 2:45 pickle sorter at the front enterance. Transportation provided through [employer]. Confirmation #[id number]. Charge nurse updated. ZACKARY Ramirez
--- NOTE | 2024-01-24 15:18 | NURSING ---
Patient was taken down to front enterance by JOSE Valle. Pt had forgotten her purse and MEETING PLANNER retrieved from the room. Upon her return, the cableman told her that he 'didn't have time for this'. Pt became tearful and cableman left without pt. Pt was requesting her daughter be contacted. This RN attempted to reach daughter jer via number listed and left a basic message on her voicemail. Santiago TADEO
== END 2024-01-24 16:54 | disposition home or self-care (01) | DRG 683 ==
LOC: ED 21:49 → PCU 22:29
PROVIDERS: Family Medicine; Admitting Provider Family Medicine; Emergency Provider Surgery; PCP Family Medicine; Visit Provider Hospitalist
DX: N17.9 Acute kidney failure, unspecified (principal); I24.89 Other forms of acute ischemic heart disease; E87.20 Acidosis, unspecified; E87.1 Hypo-osmolality and hyponatremia; K90.829 Short bowel syndrome, unspecified; D64.9 Anemia, unspecified; S51.811A Laceration without foreign body of right forearm, initial encounter; Z66 Do not resuscitate; E03.9 Hypothyroidism, unspecified; F32.A Depression, unspecified; I12.9 Hypertensive chronic kidney disease with stage 1 through stage 4 chronic kidney disease, or unspecified chronic kidney disease; G25.81 Restless legs syndrome; E66.812 Obesity, class 2; E86.0 Dehydration; N18.2 Chronic kidney disease, stage 2 (mild); F41.9 Anxiety disorder, unspecified; W19.XXXA Unspecified fall, initial encounter; E78.00 Pure hypercholesterolemia, unspecified; M19.90 Unspecified osteoarthritis, unspecified site; I95.9 Hypotension, unspecified; E87.6 Hypokalemia; E83.42 Hypomagnesemia; K21.00 Gastro-esophageal reflux disease with esophagitis, without bleeding; E86.1 Hypovolemia; E87.8 Other disorders of electrolyte and fluid balance, not elsewhere classified; K29.50 Unspecified chronic gastritis without bleeding; K31.A19 Gastric intestinal metaplasia without dysplasia, unspecified site; Y92.009 Unspecified place in unspecified non-institutional (private) residence as the place of occurrence of the external cause; R53.81 Other malaise; R10.9 Unspecified abdominal pain; G89.29 Other chronic pain; Z88.0 Allergy status to penicillin; Z88.2 Allergy status to sulfonamides; Z68.37 Body mass index [BMI] 37.0-37.9, adult; Z87.891 Personal history of nicotine dependence; Z87.19 Personal history of other diseases of the digestive system; Z79.899 Other long term (current) drug therapy; Z79.890 Hormone replacement therapy; Z96.659 Presence of unspecified artificial knee joint; Z90.49 Acquired absence of other specified parts of digestive tract; Z96.619 Presence of unspecified artificial shoulder joint; Z87.440 Personal history of urinary (tract) infections
CPT/HCPCS: 36415; 70450; 71046; 72125; 80048; 80053; 81001; 83605; 83735; 84100; 84132; 84484; 85025; 85379; 87493; 88305; 88312; 88342; 90715; 93005; 97162; 97166; 97530; 99285; A4216; J2405

== ENCOUNTER → 2024-01-28 | Outpatient (CLI) | payer MEDICARE, MEDICAID, SELFPAY ==
[2024-01-28 16:00] LABS: Anion Gap 7 (5-15); BUN 7 mg/dL (7-18); BUN/Creat Ratio 7.1 RATIO (10-20); Calcium,Total 8.9 mg/dL (8.5-10.1); Chloride 101 mmol/L (98-107); Creatinine, Serum 0.99 mg/dL (0.55-1.02); EST Glomerular Filtration Rate 60 mL/min (>60); Est Glom Filt Rate - Afr Amer 73 mL/min (>60); Glucose 111 mg/dL (74-106); Potassium 4.4 mmol/L (3.5-5.1); Sodium Level 131 mmol/L (136-145)
== END | disposition home or self-care (01) ==
LOC: MTLAB 13:31
PROVIDERS: PCP Family Medicine; Referring Provider Hospitalist; Visit Provider Hospitalist
DX: N17.9 Acute kidney failure, unspecified (principal)
CPT/HCPCS: 36415; 80048

== ENCOUNTER 2024-02-03 13:00 | Outpatient (RCR) | payer MEDICARE, MEDICAID, SELFPAY | END 2024-02-03 18:00 | disposition home or self-care (01) | LOC: HHLAB 13:00 | PROVIDERS: PCP Family Medicine; Referring Provider Family Medicine; Visit Provider Family Medicine | DX: N17.9 Acute kidney failure, unspecified (principal) | CPT/HCPCS: 87077; 87086; 87088; 87186 ==

== ENCOUNTER 2024-03-10 01:22 | Inpatient (IN) | payer MEDICARE, MEDICAID, SELFPAY ==
[2024-03-10] VITALS (12 sets, daily range): BP systolic 54–135; BP diastolic 27–84; PULSE 74–95; RESP 12–22; TEMP 36–37.1; O2SAT 95–100; BMI 34.4; BMI 32.7
--- NOTE | 2024-03-10 02:29 | RAD_ITS ---
PROCEDURE: CHEST 1 VIEW (PORTABLE) REASON FOR EXAM: Weakness. Nausea and vomiting TECHNIQUE: AP portable view of the chest . COMPARISON: 01/22/2024 FINDINGS: Mildly elevated right hemidiaphragm. Lungs are well aerated. Minimal atelectasis within the lung ba ses. No focal airspace consolidation, pneumothorax or pleural effusion is seen. Remaining lung markings otherwise appears c lear. Heart size and great vessels are stable. Osseous thorax appears intact. Side bending towards the right, which may be pos itional. Reverse shoulder arthroplasty on the left, stable. EKG wires overlie the chest. RAD/Chest 1 View (Portable) IMPRESSION: No acute cardiopulmonary process identified. Stable chest Reading Location: [facility]
[2024-03-10 02:42] LABS: Absolute Neutrophil Count 3.9 X10^3/uL (2.0-7.7); Basophil# 0.07 X10^3/uL; Basophil% 1.1 % (0-1); Eosinophil# 0.14 X10^3/uL; Eosinophils% 2.2 % (0-5); Hematocrit 31.3 % (37-47); Hemoglobin 10.5 g/dL (12.0-15.0); Mean Corp Hgb Conc 33.5 g/dL (32-36); Mean Corpuscular Hgb 29.7 pg (27.0-32.0); Mean Corpuscular Volume 88.4 fL (81-99); Mean Platelet Vol. 10.4 fl (6.2-12.0); Monocyte# 0.94 X10^3/uL; Monocyte% 14.9 % (0-10); NRBC Flagged by Analyzer 0 % (0-5); Neutrophil # 3.92 X10^3/uL (2.7-7.7); Platelet Count 240 K/mm3 (150-450); RBC Distribution Width CV 14.5 % (11.6-14.6); RBC Distribution Width SD 46.5 fl (35.1-43.9); Red Blood Count 3.54 M/mm3 (4.2-5.4); White Blood Count 6.3 K/mm3 (4.4-11.0)
[2024-03-10 03:17] LABS: Lactic Acid 1.8 mmol/L (0.4-1.9)
[2024-03-10 03:19] LABS: AST(SGOT) 19 U/L (15-37); Alanine Aminotransfer ALT/SGPT 20 U/L (13-56); Albumin, Serum 2.5 g/dL (3.2-5.0); Alkaline Phosphatase 103 U/L (45-117); Anion Gap 15 (5-15); BUN 14 mg/dL (7-18); BUN/Creat Ratio 7.7 RATIO (10-20); Bilirubin, Direct 0.15 mg/dL (0.00-0.30); Calcium,Total 9.2 mg/dL (8.5-10.1); Chloride 101 mmol/L (98-107); Creatinine, Serum 1.83 mg/dL (0.55-1.02); EST Glomerular Filtration Rate 29 mL/min (>60); Est Glom Filt Rate - Afr Amer 36 mL/min (>60); Estimated Creatinine Clearance 35.95 ml/min; Globulin 3.8 g/dL (2.2-4.2); Glucose 135 mg/dL (74-106); Lipase 31 U/L (13-75); Magnesium 1.4 mg/dL (1.6-2.6); Potassium 2.7 mmol/L (3.5-5.1); Protein, Total 6.3 g/dL (6.4-8.2); Sodium Level 131 mmol/L (136-145)
[2024-03-10] MEDS: 0.9% Normal Saline (1000mL) 1,000 ML 999 ML IV (03:23)
[2024-03-10] MEDS: Ondansetron 4 MG/2 ML Vial IV (03:24)
[2024-03-10] MEDS: Magnesium Sulfate 2 GM in Dextrose 5%-Water (100mL Bag) 100 ML IV (03:32)
--- NOTE | 2024-03-10 03:53 | CT_ITS ---
PROCEDURE: ABDOMEN/PELVIS WITHOUT CONT REASON FOR EXAM: Nausea and vomiting and weakness x1 hour. TECHNIQUE: Abdomen and pelvis CT without intravenous contrast. IV CONTRAST: None COMPARISON: 01/02/2024 FINDINGS: Noncontrast technique limits evaluation of the abdominal and pelvic viscera. Lung bases: Trace atelectasis within the right middle lobe. Liver: Unenhanced liver appears intact. Gallbladder: Surgically absent. Spleen: Unremarkable. Not enlarged. Pancreas: Unremarkable. Dystrophic calcification near the pancreatic neck. Adrenals: No adrenal masses are identified. Kidneys: No calcifications or obstructive uropathy involving the bilateral collecting systems. Bladder: Mildly distended. No bladder calculi identified. Reproductive Organs: Suspect prior hysterectomy Bowel: No bowel obstruction. Postsurgical changes involving the right colon. No pericolonic inflamm atory changes. Appendix: Surgically absent. Lymph nodes: No suspicious lymph node enlargement. Vasculature: Vascular calcifications throughout the abdominal aorta and iliac arteries. Peritoneum / Retroperitoneum: No ascites. No free air. Small 1.7 x 1.8 cm fat containing umbilical h ernia. No bowel loop involvement. Bones: Chronic appearing mild compression deformity involving the L2 vertebral level, with vertebropl asty cement. CT/Abdomen/Pelvis without Cont IMPRESSION: 1. No calcifications or obstructive uropathy involving the bilateral collecting systems. 2. Small fat containing umbilical hernia measures 1.7 x 1.8 cm. No bowel loop involvement. 3. No bowel obstruction. Evidence of right-sided hemicolectomy. 4. Additional findings, as detailed above One or more dose reduction techniques were used (e.g., Automated exposure contr ol, adjustment of the mA and/or kV according to patient size, use of iterative reconstruction technique). [facility]
[2024-03-10 05:03] LABS: Mucous, Urine 0 SEEN /hpf (<or=2+); Red Blood Cells-Urine 0 SEEN /hpf (0-5)
[2024-03-10 05:09] LABS: Color, Urine Yellow (Yellow); Glucose, Dipstick Normal (Normal); Ketone-Dipstick Negative (Negative); Leukocyte Esterase-Dipstick 500 /ul (Negative); Nitrite-Dipstick Negative (Negative); Occult Blood-Urine 10 /ul (Negative); Protein-Dipstick 15 mg/dl (Negative); Urine Bilirubin Dipstick Negative (Negative); Urine Clarity Cloudy (Clear); Urine Urobilinogen Normal (Normal)
[2024-03-10 05:39] LABS: Bacteria 4+ /hpf (None Seen); Squamous Epithelial Cells - UA 0-5 SEEN /hpf (5-10); White Blood Cells 0-5 SEEN /hpf (0-5)
[2024-03-10] MEDS: Meclizine 12.5 MG Tablet PO (06:18)
[2024-03-10] MEDS: Nitrofurantoin Macrocrystals 100 MG Capsule PO (06:19)
--- NOTE | 2024-03-10 07:30 | EDS_ITS ---
HPI History of Present Illness Chief Complaint: Weakness Informant: patient Narrative Narrative: Patient is 63-year-old female with past medical history of hypertension hyperlipidemia hypothyroidism and previous small bowel obstruction requiring right hemicolectomy. She states that she was up walking to and from the bathroom last night when she felt lightheaded and weak. She states that she is also had dysuria and is unsure if the weakness is due to infection or dehydration or simply the fact she took her nighttime sleeping pill prior to the event occurring and therefore comes in for evaluation [facility] Medical History No natural teeth Wears glasses Depression Anxiety Walker as ambulation aid Arthritis Low iron Excessive bleeding Restless legs Heartburn Shortness of breath on exertion Former smoker History of echocardiogram Hypoalbuminemia Obesity (BMI 30-39.9) Suspected inflammatory bowel disease Elevated troponin Heart failure Gastroenteritis Diarrhea Small bowel perforation Small bowel ischemia Trigger finger, left ring finger Trigger finger, right ring finger Right carpal tunnel syndrome Bilateral carpal tunnel syndrome Hypothyroidism Anxiety and depression High cholesterol Hypertension Home Medications ?Medication ?Instructions ?Recorded ?Last Taken ?Type buspirone 30 mg tablet 15 mg PO BID anxiety 04/28/23 Unknown History tizanidine 4 mg tablet 4 mg PO TID muscle relaxer 04/28/23 Unknown History trazodone 100 mg tablet 100 mg PO QHS sleep 04/28/23 Unknown History venlafaxine 150 mg 150 mg PO QDAY mental health 04/28/23 Unknown History capsule,extended release 24 hr atorvastatin 10 mg tablet 10 mg PO QHS cholesterol 11/19/23 Unknown History bupropion HCl 200 mg tablet,12 hr 200 mg PO DAILY mental health 11/19/23 Unknown History sustained-release melatonin 5 mg capsule 5 mg PO QHS sleep 11/19/23 Unknown History levothyroxine 125 mcg tablet 125 mcg PO DAILY@0600 thyroid #0 11/23/23 Unknown Rx tabs furosemide 40 mg tablet (Lasix) 40 mg PO DAILY diuretic #30 tabs 11/26/23 Unknown Rx loperamide 2 mg capsule 2 mg PO Q4H PRN PRN Diarrhea/Loose 11/26/23 Unknown Rx Stools #0 caps sennosides 8.6 mg-docusate sodium 2 tab PO BID PRN PRN Constipation 11/26/23 Unknown Rx 50 mg tablet (Stimulant Laxative #0 tabs Plus) ondansetron 4 mg disintegrating 4 mg PO Q8H PRN PRN Nausea #10 tabs 12/01/23 Unknown Rx tablet loratadine 10 mg disintegrating 10 mg PO QHS allergies 12/25/23 Unknown History tablet (Alavert) hydroxyzine HCl 25 mg tablet 25 mg PO BID PRN anxiety 12/31/23 Unknown History losartan 100 1 tab PO QDAY blood pressure 12/31/23 Unknown History mg-hydrochlorothiazide 12.5 mg tablet mecobalamin (vitamin B12) 1,000 1,000 mcg PO QDAY vitamin 12/31/23 Unknown History mcg chewable tablet (B12 Active) pantoprazole 40 mg tablet,delayed 40 mg PO QDAY reflux 12/31/23 Unknown History release (Protonix) potassium chloride 20 mEq 20 meq PO BID 01/22/24 Unknown History tablet,extended release verapamil 240 mg tablet,extended 240 mg PO DAILY 01/22/24 Unknown History release Allergy/AdvReac Type Severity Reaction Status Date / Time cefaclor (From Ceclor) Allergy Anaphylaxis Verified 01/22/24 18:16 chlorhexidine Allergy Hives Verified 01/22/24 18:16 codeine Allergy Anaphylaxis Verified 01/22/24 18:16 paroxetine (From Paxil) Allergy Anaphylaxis Verified 01/22/24 18:16 Penicillins Allergy Anaphylaxis Verified 01/22/24 18:16 Sulfa (Sulfonamide Allergy Anaphylaxis Verified 01/22/24 18:16 Antibiotics) magnesium sulfate AdvReac Severe Nausea/Vom/ Verified 01/22/24 18:16 Diarrhea Family History Mother Heart disease Father Heart disease Surgical History History of carpal tunnel release of both wrists History of exploratory laparotomy S/P TKR (total knee replacement) History of shoulder replacement History of hysterectomy History of cholecystectomy Hx of appendectomy Social History household members: none Smoking Status: Former smoker alcohol intake: never substance use type: does not use ROS ROS ED Constitutional Constitutional ED: Denies chills or fever(s) Eyes Eyes: Denies change in vision ENT ENT ED: Denies sore throat Cardiovascular Cardiovascular: Denies chest pain or palpitations Respiratory/Chest Respiratory/Chest: Denies cough or dyspnea Gastrointestinal Gastrointestinal: Reports nausea and vomiting; Denies abdominal pain or diarrhea Genitourinary Genitourinary ED: Reports dysuria Musculoskeletal Musculoskeletal: Denies myalgias Integumentary Denies rash Neurologic Neurologic: Reports weakness; Denies headache(s) Psychiatric Psychiatric: Reports anxiety and depression Hematologic/Lymphatic Hematologic/Lymphatic: Denies easy bleeding or easy bruising EXAM Physical Exam Const Vital Signs: 03/10/24 01:23 03/10/24 01:23 03/10/24 02:20 Temperature 96.8 F L 98 F Temperature Source Temporal Axillary Pulse Rate 82 74 Respiratory Rate 18 12 Respiratory Pattern Normal Blood Pressure 87/55 L 54/27 L Blood Pressure Mean 65 36 Pulse Ox 95 99 Oxygen Delivery Method Room Air Room Air 03/10/24 02:26 03/10/24 04:00 03/10/24 06:00 Temperature 98 F Temperature Source Pulse Rate 92 88 92 Respiratory Rate 18 20 H 22 H Respiratory Pattern Blood Pressure 109/82 H 117/44 L 112/48 L Blood Pressure Mean 91 68 69 Pulse Ox 100 100 100 Oxygen Delivery Method Room Air Room Air Positive well nourished, well developed and obese General Appearance ED: well developed; Negative for pallor Nutritional Appearance: obese HEENT Reports dry mucous membranes HEENT Narrative: No tongue or lip swelling no oral lesions no airway edema or compromise No findings to suggest infection in the posterior pharynx Mouth ED: Yes dry mucous membranes Mouth: dry mucous membranes Eyes PERRL and EOMs intact bilaterally General Eye ED: Negative for scleral icterus Neck supple Neck Narrative: No nuchal rigidity or meningeal signs noted Resp normal respiratory effort and clear to auscultation bilaterally Resp Narrative: Breath sounds are diminished rapid overall clear to auscultation without signs of respiratory distress Cardio regular rate and regular rhythm GI non-tender, non-distended and no masses GI Narrative: Abdomen is soft nontender nondistended with normal active bowel sounds no voluntary guarding or rigidity or pulsatile mass Auscultation: normoactive bowel sounds Palpation: soft Extremity normal to inspection Extremity Narrative: Pelvis is stable there is no shortening or external rotation of either lower extremity Negative Homans' sign bilaterally Neuro oriented x3, CN's II-XII intact bilaterally and no sensory deficits noted Sensorium / Orientation: alert Psych Mood & Affect: depressed Skin no rashes or lesions noted and No skin turgor normal Skin Narrative: Skin turgor is increased General Skin Exam: Negative for pallor MDM MDM MDM Narrative Medical decision making narrative: Patient initially providing to the ER awake and alert but with mild hypotension. Physical exam shows findings consistent with dehydration and therefore she was given IV fluid boluses which did help resolve the hypotension. With concern for acute kidney injury from the dehydration basic blood work was obtained as well as concern potential acute blood loss anemia or severe electrolyte abnormality. As she reported generalized weakness there is concern for viral infection such as COVID influenza or RSV and with dysuria there is concern for UTI or uroseps is. Patient's white blood cell count is normal and she is afebrile going against a septic presentation there is no left shift either. However her kidney function has elevated to a creatinine of 1.85 which is approximately 1 point above baseline consistent with JENNIFER. Potassium and magnesium supplementation is low as well. Therefore magnesium was provided initially as 2 g through an IV route. I discussed with patient with her JENNIFER and [place] abnormalities and generalized weakness she should be admitted to the hospital. She states she has a cat at home and cannot be admitted. Therefore at the end of the workup we attempted to ambulate the patient and she stated that she was still too fatigued and tired to go home and she felt like she should be placed in the hospital. Therefore medicine was contacted and they do agree to accept the patient at this time. She received 1 L of fluid and was placed on a 250 mL/h fluid regimen. Initially she was given oral Macrobid as she requested to go home for her UTI but when she was admitted to the hospital IV Cipro was started based on her multiple medical allergies. 2 g of IV magnesium was replaced while in the ER and then as this should be a normal value potassium supplementation by IV route was administered as well. This plan of care was discussed with the patient and she is agreeable to it and with improved vitals she is otherwise safe for the medical floor and does not need ICU evaluation History & Record Review Discussion w/independent historian: Patient Lab Data Attestation: I reviewed the patient's lab results. Labs: Laboratory Results - last 24 hr 03/10/24 03/10/24 02:15 04:50 WBC 6.3 RBC 3.54 L Hgb 10.5 L Hct 31.3 L MCV 88.4 MCH 29.7 MCHC 33.5 RDW Std Deviation 46.5 H RDW Coeff of Vicki 14.5 Plt Count 240 MPV 10.4 Immature Gran % (Auto) 0.800 Neut % (Auto) 62.0 Lymph % (Auto) 19.0 [place] % (Auto) 14.9 H Eos % (Auto) 2.2 Baso % (Auto) 1.1 H Absolute Neuts (auto) 3.9 Absolute Lymphs (auto) 1.20 Nucleated RBC % 0 Sodium 131 L Potassium 2.7 L* Chloride 101 Carbon Dioxide 15.0 L Anion Gap 15 BUN 14 Creatinine 1.83 H Estim Creat Clear Calc 35.95 Est GFR (MDRD) Af Amer 36 L Est GFR (MDRD) Non-Af 29 L BUN/Creatinine Ratio 7.7 L Glucose 135 H Lactic Acid 1.8 Calcium 9.2 Magnesium 1.4 L Total Bilirubin 0.30 Direct Bilirubin 0.15 AST 19 ALT 20 Alkaline Phosphatase 103 Total Protein 6.3 L Albumin 2.5 L Globulin 3.8 Lipase 31 Urine Color Yellow Urine Clarity Cloudy Urine pH 6.0 Ur Specific [place] 1.010 Urine Protein 15 H Urine Glucose (UA) Normal Urine Ketones Negative Urine Occult Blood 10 H Urine Nitrite Negative Urine Bilirubin Negative Urine Urobilinogen Normal Ur Leukocyte Esterase 500 H Urine RBC 0 SEEN Urine WBC 0-5 SEEN Ur Squamous Epith Cells 0-5 SEEN Urine Bacteria 4+ Urine Mucus 0 SEEN Radiography Diagnostic Testing: Clinical Impression(s) from Imaging Studies Chest X-Ray 03/10/24 02:29 IMPRESSION: No acute cardiopulmonary process identified. Stable chest [facility]domen/Pelvis CT 03/10/24 03:53 IMPRESSION: 1. No calcifications or obstructive uropathy involving the bilateral collecting systems. 2. Small fat containing umbilical hernia measures 1.7 x 1.8 cm. No bowel loop involvement. 3. No bowel obstruction. Evidence of right-sided hemicolectomy. 4. Additional findings, as detailed above One or more dose reduction techniques were used (e.g., Automated exposure control, adjustment of the mA and/or kV according to patient size, use of iterative reconstruction technique). Reading Location: [facility] Chest x-ray as interpreted by the emergency medicine physician reveals no acute infiltrate pneumothorax or pleural effusion Management Discussion w/another healthcare provider: Hospitalist Discharge Plan Triage Chief Complaint: Weakness ED Provider: Vince June Dx/Rx/DC Orders Clinical Impression: Acute dehydration, Hyponatremia, JENNIFER (acute kidney injury), UTI (urinary tract infection) Prescriptions: No Action venlafaxine 150 mg capsule,extended release 24hr 150 mg PO QDAY buspirone 30 mg tablet 15 mg PO BID trazodone 100 mg tablet 100 mg PO QHS tizanidine 4 mg tablet 4 mg PO TID pantoprazole [Protonix] 40 mg tablet,delayed release (DR/EC) 40 mg PO QDAY losartan-hydrochlorothiazide 100-12.5 mg tablet 1 tab PO QDAY hydroxyzine HCl 25 mg tablet 25 mg PO BID PRN (Reason: anxiety) mecobalamin (vitamin B12) [B12 Active] 1,000 mcg tablet,chewable 1,000 mcg PO QDAY atorvastatin 10 mg tablet 10 mg PO QHS bupropion HCl 200 mg tablet sustained-release 12 hr 200 mg PO DAILY melatonin 5 mg capsule 5 mg PO QHS levothyroxine 125 mcg Tablet 125 mcg PO DAILY@0600 Qty: 0 0RF loperamide 2 mg Capsule 2 mg PO Q4H PRN PRN (Reason: Diarrhea/Loose Stools) Qty: 0 0RF sennosides-docusate sodium [Stimulant Laxative Plus] 8.6-50 mg Tablet 2 tab PO BID PRN PRN (Reason: Constipation) Qty: 0 0RF furosemide [Lasix] 40 mg tablet 40 mg PO DAILY Qty: 30 0RF ondansetron 4 mg tablet,disintegrating 4 mg PO Q8H PRN PRN (Reason: Nausea) Qty: 10 0RF loratadine [Alavert] 10 mg tablet,disintegrating 10 mg PO QHS potassium chloride 20 mEq tablet extended release 20 meq PO BID verapamil 240 mg tablet extended release 240 mg PO DAILY Primary Care Provider: Chaparro Mejia Referrals: Chaparro Mejia MD [Primary Care Provider] - Print Language: Icelandic Disposition Disposition: Acute Care Hospital [facility]
--- NOTE | 2024-03-10 07:32 | PCM.HP.STD ---
HPI - General General Date of Admission: 03/10/24 Date of Service: 03/10/24 Chief Complaint: Nausea vomiting HPI Narrative ROASLINDA VALE, is a 63 F who presented to the emergency department at [facility] 03/10/2024 with a chief complaints of weakness. The patient states she was walking to the bathroom last evening when she felt lightheaded and weak. She also has been having some dysuria and frequency. She did take a sleeping pill prior to bedtime and felt like her weakness was related to this. She also is complaining of some intermittent nausea vomiting and abdominal pain which is acute on chronic issue for her. She had an EGD done on 01/19/2024 that showed grade a esophagitis, erythematous mucosa in the gastric body and erythematous duodenopathy which was biopsied but no other acute findings. She does have history of bowel resection within the last 12 months. The etiology for her nausea vomiting is unclear. She states she has been compliant with her medications as able. Vital signs on presentation showed temperature of 96.8, heart rate 82, blood pressure initially was 87/55 but after 1 L IV fluids she was found to be 109/82, respiratory was 18 and pulse ox was 95% on room air. CBC showed normal white count with a chronic stable anemia of a hemoglobin of 10.5 with a baseline of 9-10. She does appear to be mildly hemoconcentrated. Chemistry panel showed mild hyponatremia with sodium 131, hypokalemia with potassium of 2.7, serum bicarb of 15 with a normal anion gap. Her serum creatinine was 1.83 and a baseline of 0.8-1.0. Her glucose was 135. Her magnesium was 1.4. Liver functions unremarkable. Lipase was normal. Her UA is suggestive of infection with leuk esterase, and 4+ bacteria, she does have a few white cells seen but not loaded. Urine culture was sent by the emergency department and she was started on ciprofloxacin due to multiple antibiotic allergies. She was given aggressive IV fluids and potassium and magnesium were replaced. [facility] Medical History Anemia No natural teeth Wears glasses Depression Anxiety Walker as ambulation aid Arthritis Low iron Excessive bleeding Restless legs Heartburn Shortness of breath on exertion Former smoker History of echocardiogram Hypoalbuminemia Obesity (BMI 30-39.9) Suspected inflammatory bowel disease Elevated troponin Heart failure Gastroenteritis Diarrhea Small bowel perforation Small bowel ischemia Trigger finger, left ring finger Trigger finger, right ring finger Right carpal tunnel syndrome Bilateral carpal tunnel syndrome Hypothyroidism Anxiety and depression High cholesterol Hypertension Home Medications ?Medication ?Instructions ?Recorded ?Last Taken ?Type buspirone 30 mg tablet 15 mg PO BID anxiety 04/28/23 Unknown History tizanidine 4 mg tablet 4 mg PO TID muscle relaxer 04/28/23 Unknown History trazodone 100 mg tablet 100 mg PO QHS sleep 04/28/23 Unknown History venlafaxine 150 mg 150 mg PO QDAY mental health 04/28/23 Unknown History capsule,extended release 24 hr bupropion HCl 200 mg tablet,12 hr 200 mg PO DAILY mental health 11/19/23 Unknown History sustained-release melatonin 5 mg capsule 5 mg PO QHS sleep 11/19/23 Unknown History levothyroxine 125 mcg tablet 125 mcg PO DAILY@0600 thyroid #0 11/23/23 Unknown Rx tabs sennosides 8.6 mg-docusate sodium 2 tab PO BID PRN PRN Constipation 11/26/23 Unknown Rx 50 mg tablet (Stimulant Laxative #0 tabs Plus) hydroxyzine HCl 25 mg tablet 25 mg PO TID PRN PRN anxiety 12/31/23 Unknown History losartan 100 1 tab PO QDAY blood pressure 12/31/23 Unknown History mg-hydrochlorothiazide 12.5 mg tablet mecobalamin (vitamin B12) 1,000 1,000 mcg PO QDAY vitamin 12/31/23 Unknown History mcg chewable tablet (B12 Active) pantoprazole 40 mg tablet,delayed 40 mg PO Q12H reflux 12/31/23 Unknown History release (Protonix) potassium chloride 20 mEq 20 meq PO DAILY electrolyte 01/22/24 Unknown History tablet,extended release fexofenadine 180 mg tablet 180 mg PO DAILY allergies 03/10/24 Unknown History ([place] [facility]) furosemide 40 mg tablet (Lasix) 40 mg PO LUNCH diuretic 03/10/24 Unknown History promethazine 12.5 mg tablet 12.5 mg PO BID PRN PRN Extreme 03/10/24 Unknown History nausea rosuvastatin 5 mg tablet 5 mg PO QHS cholesterol 03/10/24 Unknown History spironolactone 50 mg tablet 50 mg PO DAILY BP 03/10/24 Unknown History Allergy/AdvReac Type Severity Reaction Status Date / Time cefaclor (From Ceclor) Allergy Anaphylaxis Verified 01/22/24 18:16 chlorhexidine Allergy Hives Verified 01/22/24 18:16 codeine Allergy Anaphylaxis Verified 01/22/24 18:16 paroxetine (From Paxil) Allergy Anaphylaxis Verified 01/22/24 18:16 Penicillins Allergy Anaphylaxis Verified 01/22/24 18:16 Sulfa (Sulfonamide Allergy Anaphylaxis Verified 01/22/24 18:16 Antibiotics) magnesium sulfate AdvReac Severe Nausea/Vom/ Verified 01/22/24 18:16 Diarrhea Family History Mother Heart disease Father Heart disease Surgical History History of carpal tunnel release of both wrists History of exploratory laparotomy S/P TKR (total knee replacement) History of shoulder replacement History of hysterectomy History of cholecystectomy Hx of appendectomy Social History household members: none Smoking Status: Former smoker alcohol intake: never substance use type: does not use ROS Constitutional Constitutional: Denies anorexia, change in weight, chills, fatigue, fever(s), malaise, night sweats, weakness or other Eyes Eyes: Denies blurry vision, change in eye color, change in vision, discharge from eye(s), double vision, erythema, eye pain, loss of vision or other ENT HEENT: Denies abnormal hearing, dysphagia, ear pain, epistaxis, headache(s), hearing loss, nasal congestion, nasal discharge, post nasal drip, sinus pressure, sore throat or other Cardiovascular Cardiovascular: Denies chest pain, claudication, dyspnea on exertion, edema, lightheadedness, orthopnea, palpitations, paroxysmal nocturnal dyspnea, rapid heart rate, syncope or other Respiratory/Chest Respiratory/Chest: Denies cough, dyspnea, excessive phlegm production, hemoptysis, productive cough, shortness of breath at rest, shortness of breath with exertion, wheezing or other Gastrointestinal Gastrointestinal: Reports abdominal pain, nausea and vomiting; Denies coffee ground emesis, constipation, diarrhea, dyspepsia, hematemesis, hematochezia, loose stools, melena or other Genitourinary Genitourinary: Reports burning urination and urinary frequency; Denies difficulty urinating, dysuria, hematuria, nocturia, urinary hesitancy, urinary incontinence, urinary urgency or other Musculoskeletal Musculoskeletal: Denies arthralgias, back pain, joint pain, joint stiffness, joint swelling, myalgias, neck pain or other Neurologic Neurologic: Reports disequilibrium; Denies abnormal gait, abnormal speech, confusion, dizziness, focal weakness, headache(s), numbness, paresthesias, seizure-like activity, seizures, syncope, tingling, tremor(s) or other Psychiatric Psychiatric: Reports anxiety and depression; Denies homicidal ideation, suicidal ideation or other Endocrine Endocrinology: Denies change in body appearance, cold intolerance, excessive sweating, heat intolerance, polydipsia, polyuria or other Hematologic/Lymphatic Hematologic/Lymphatic: Denies anemia, easy bleeding, easy bruising, lymphadenopathy or other Allergic/Immunologic Allergic/Immunologic: Denies rhinitis, hives, eczemia, asthma or other Vital Signs Vital Signs Vital Signs: 03/10/24 01:23 03/10/24 01:23 03/10/24 02:20 Temperature 96.8 F L 98 F Temperature Source Temporal Axillary Pulse Rate 82 74 Respiratory Rate 18 12 Respiratory Pattern Normal Blood Pressure 87/55 L 54/27 L Blood Pressure Mean 65 36 Pulse Ox 95 99 Oxygen Delivery Method Room Air Room Air 03/10/24 02:26 03/10/24 04:00 03/10/24 06:00 Temperature 98 F Temperature Source Pulse Rate 92 88 92 Respiratory Rate 18 20 H 22 H Respiratory Pattern Blood Pressure 109/82 H 117/44 L 112/48 L Blood Pressure Mean 91 68 69 Pulse Ox 100 100 100 Oxygen Delivery Method Room Air Room Air Weight Weight: 96.8 kg Body Mass Index (BMI) 34.4 Physical Exam Const alert, oriented x3 and no apparent distress; Negative for average body habitus or healthy appearing Constitutional Narrative: Obese, white female, sitting up in bed, currently appears comfortable, nontoxic General Appearance: cooperative HEENT normocephalic, head/scalp atraumatic, hearing grossly normal bilaterally and moist oral mucous membranes HEENT Narrative: Edentulous, Mallampati 3, no thrush Eyes EOMs intact bilaterally and conjunctivae normal Eyes Narrative: No scleral icterus Neck supple Neck Narrative: Trachea midline, neck is short and thick to have bigger Resp normal respiratory effort, no retractions, no use of accessory muscles and clear to auscultation bilaterally Auscultation: Negative for rales, rhonchi or wheezes Cardio regular rate, regular rhythm, S1 normal heart sound, S2 normal heart sound, no murmurs, no rub, no gallops and no clicks GI normal to inspection, nondistended, normoactive bowel sounds, soft to palpation and non-tender Extremity no clubbing, cyanosis or edema Extremity Narrative: 2+ pedal and radial pulses Neuro oriented x3, moves all extremities and no focal motor deficits Speech: speech normal Psych affect normal Psych Narrative: Very pleasant, interacts appropriately Results Lab / Micro Data 03/10/24 02:15 03/10/24 12:44 Labs: Laboratory Results - last 24 hr 03/10/24 02:15: WBC 6.3, RBC 3.54 L, Hgb 10.5 L, Hct 31.3 L, MCV 88.4, MCH 29.7, MCHC 33.5, RDW Std Deviation 46.5 H, RDW Coeff of Vicki 14.5, Plt Count 240, MPV 10.4, Immature Gran % (Auto) 0.800, Neut % (Auto) 62.0, Lymph % (Auto) 19.0, [place] % (Auto) 14.9 H, Eos % (Auto) 2.2, Baso % (Auto) 1.1 H, Absolute Neuts (auto) 3.9, Absolute Lymphs (auto) 1.20, Nucleated RBC % 0, Sodium 131 L, Potassium 2.7 L*, Chloride 101, Carbon Dioxide 15.0 L, Anion Gap 15, BUN 14, Creatinine 1.83 H, Estim Creat Clear Calc 35.95, Est GFR (MDRD) Af Amer 36 L, Est GFR (MDRD) Non-Af 29 L, BUN/Creatinine Ratio 7.7 L, Glucose 135 H, Lactic Acid 1.8, Calcium 9.2, Magnesium 1.4 L, Total Bilirubin 0.30, Direct Bilirubin 0.15, AST 19, ALT 20, Alkaline Phosphatase 103, Total Protein 6.3 L, Albumin 2.5 L, Globulin 3.8, Lipase 31 03/10/24 04:50: Urine Color Yellow, Urine Clarity Cloudy, Urine pH 6.0, Ur Specific [place] 1.010, Urine Protein 15 H, Urine Glucose (UA) Normal, Urine Ketones Negative, Urine Occult Blood 10 H, Urine Nitrite Negative, Urine Bilirubin Negative, Urine Urobilinogen Normal, Ur Leukocyte Esterase 500 H, Urine RBC 0 SEEN, Urine WBC 0-5 SEEN, Ur Squamous Epith Cells 0-5 SEEN, Urine Bacteria 4+, Urine Mucus 0 SEEN Micro: Microbiology 03/10/24 03:28 Mucosa - Nasopharyngeal SARS-CoV-2, Influenza & RSV (PCR) - Final Imaging Radiology Impression Chest X-Ray 03/10/24 02:29 IMPRESSION: No acute cardiopulmonary process identified. Stable chest Reading Location: [facility] Abdomen/Pelvis CT 03/10/24 03:53 IMPRESSION: 1. No calcifications or obstructive uropathy involving the bilateral collecting systems. 2. Small fat containing umbilical hernia measures 1.7 x 1.8 cm. No bowel loop involvement. 3. No bowel obstruction. Evidence of right-sided hemicolectomy. 4. Additional findings, as detailed above One or more dose reduction techniques were used (e.g., Automated exposure control, adjustment of the mA and/or kV according to patient size, use of iterative reconstruction technique). Reading Location: [facility] Assessment & Plan Assessment/Plan (1) Acute dehydration: (2) JENNIFER (acute kidney injury): (3) Nausea and vomiting: (4) Hyponatremia: (5) Hypokalemia: (6) Hypomagnesemia: (7) Metabolic acidosis: (8) Abnormal finding on urinalysis: PLAN: Plan Abdominal pain/nausea/vomiting -This has been reoccurring -Had recent EGD that was fairly unremarkable -Will check gastric emptying study as etiology remains unclear -It occurs so significantly she comes in with dehydration and JENNIFER recurrently Abnormal UA -UTI suspected -Will utilize Cipro as patient has multiple antibiotic allergies -Culture pending JENNIFER on CKD stage II secondary to dehydration -Overall baseline renal function appears to be between 0.7 and 0.9 -1.83 on presentation and appears prerenal -Aggressive IV fluids -hold home losartan -hold home Lasix -hold home Aldactone Non-anion gap metabolic acidosis -Suspect related to GI losses and dehydration Hypokalemia -Aggressive replacement -Recheck in a.m. -Magnesium replacement in progress Hypomagnesemia -Patient has been given 2 g of magnesium -Recheck in a.m. Hyponatremia -Likely related to volume depletion -Aggressive IV fluids -Will repeat in a.m. Hypothyroidism -Continue home Synthroid -Check TSH Essential hypertension/hyperlipidemia -hold verapamil -hold Aldactone -Continue to hold losartan -Continue home statin GERD -Continue p.o. Protonix History of small bowel resection/partial colectomy -No current issues Anxiety/depression/insomnia -Continue home venlafaxine -Continue home trazodone -Continue home BuSpar -Continue home Wellbutrin Obesity -Complicates treatment, prognosis, outcomes -Recommend weight loss -BMI is 32.7 DVT prophylaxis -Subcu Lovenox 40 mg daily CODE STATUS -DNR CCA okay for short-term intubation as per discussion with family at bedside prior to admission Charges/Coding Visit Charges Inpatient E&M: 55460 Init Hosp L2
[2024-03-10] MEDS: Potassium Chloride 10mEq/100mL 10 MEQ/100 ML IV.SOLN. 100 MEQ IV BOLUS ×8 (07:43→17:21)
[2024-03-10] MEDS: 0.9% Normal Saline (1000mL) 1,000 ML 250 ML IV (07:45)
[2024-03-10] MEDS: Ciprofloxacin 200 MG/100 ML BAG 100 MG IV (09:26)
[2024-03-10] MEDS: Cyanocobalamin 500 MCG Tablet 1000 MCG PO (11:34)
[2024-03-10] MEDS: Venlafaxine XR 150 MG Capsule PO (11:35)
[2024-03-10] MEDS: busPIRone 15 MG TABLET PO ×2 (11:35→21:59)
[2024-03-10] MEDS: buPROPion (SR) 100 MG TABLET.SA 200 MG PO (11:35)
[2024-03-10] MEDS: Lactated Ringers 1,000 ML 100 ML IV ×2 (11:36→22:51)
[2024-03-10] MEDS: 0.9% Saline Lock 10 ML Syringe IV (11:41)
[2024-03-10] MEDS: Enoxaparin 40 MG/0.4 ML Syringe SC (11:41)
--- NOTE | 2024-03-10 11:45 | CASEMGMT ---
SHWETHA GALLARDO Assessment: SHWETHA GALLARDO to room to meet with pt for initial transition planning/care coordination assessment. SHWETHA GALLARDO introduced self and role at [facility], pt voices understanding and consents to assessment. Pt is A&O and answers all questions appropriately at this time. Pt resting in bed in no distress. Care providers, pharmacy, and demographics verified/updated. Strata: 3 PCP: Dr Mejia Specialists: KACIE Gallo; psych in [place] Preferred Pharmacy: [facility] @ discharge. Otherwise, pt goes to [facility] in [place] Insurance: [employer] Prescription Benefit: yes LNOK: Renetta Patel dtr Living Arrangements: Pt lives alone in a ground level apt/senior care with no steps to enter. Pt states she has a Rocio GALLARDO ([phone]). She has aides 8 hrs/week, usually / from 10-11. She receives 14 home-delivered meal Q 2 wks and has medical alert button. The aides assist w/bathing/dressing, laundry, and cleaning. Pt manages her own medications. Pt states she has a cat that her neighbor is checking on while pt is in the hospital. Pt denies other concerns at home. Transportation: Pt states she has not been allowed to drive since September. She states she is not sure if her daughter will be able to take her home @ discharge, and if not, she is not sure how she will get home. Pt does use [id number] for transportation through her insurance and this may need to be arranged @ pr to take pt home. DME: lift chair, rollator, medical alert. She has a W/C available, if needed. She just received a tub bench, but states it's not the right one, I need an extended tub bench. Pt states the tub bench was billed through her insurance. SHWETHA GALLARDO informed pt her insurance most likely will not cover for another tub bench and advised her to f/u with Rocio GALLARDO, re: need of a different tub bench. She voices understanding. She states she can still use the one she has, with assistance of aides that assist her w/bathing. HHC/SNF: Pt [facility] been to [facility] and [facility]. Pt is active with [facility], SN. Pt would like to resume w/[facility] @ dc and declines wanting list of other HHC options. Pt states no concerns with going home at time of dc. Pt states no further concerns/needs. CM to follow. Advised pt to ask CM if any further question/concerns/needs arise, voices understanding. Plan: Home w/[facility], SN. CM to follow for possible need to add PT/OT. Obinna MANRIQUEZN RN CM
--- NOTE | 2024-03-10 11:52 | CHAPLAIN ---
Type of Pastoral Visit _x__ Initial Visit ___ Follow-up Visit ___ On-call Visit ___ General Patient Visit ___ Spiritual Assessment ___ Family Conference ___ Bereavement ___ Rapid Response ___ Code Blue ___ Other (describe below) Pastoral Care Referral From _x__ Patient ___ Family ___ Nurse ___ Physician ___ Silverware Etcher ___ Sas Analyst ___ Other (describe below) Sacrament/Intervention _x__ Active listening ___ Anointing ___ Protestant ___ Bereavement ___ Communion ___ Nalini exploration ___ ___ Life review ___ Prayer ___ Reconciliation ___ Sacrament of Sick _x__ Supportive presence ___ Wedding ___ Other (describe below) Pastoral Comments supportive presence with this repeat patient; pt is given opportunity to speak her frustrations; pt is worried about her cat but a neighbor called that can care for it; pt is disappointed to miss a grandsons birthday and a now third time rescheduled appointment; pt states that I dont' think the One up there is listening and brief exploration of those spiritual thoughts
[2024-03-10 13:21] LABS: Anion Gap 11 (5-15); BUN 11 mg/dL (7-18); BUN/Creat Ratio 7.4 RATIO (10-20); Calcium,Total 8.9 mg/dL (8.5-10.1); Chloride 107 mmol/L (98-107); Creatinine, Serum 1.48 mg/dL (0.55-1.02); EST Glomerular Filtration Rate 38 mL/min (>60); Est Glom Filt Rate - Afr Amer 45 mL/min (>60); Estimated Creatinine Clearance 43.28 ml/min; Glucose 95 mg/dL (74-106); Potassium 2.7 mmol/L (3.5-5.1); Sodium Level 135 mmol/L (136-145)
[2024-03-10] MEDS: Menthol/Lanolin/Calamine/Znox 113 GM Tube 1 APPLIC TOPICAL ×2 (13:57→22:51)
[2024-03-10] MEDS: 0.9% Normal Saline (100mL Bag) 100 ML 15 ML IV (18:40)
[2024-03-10] MEDS: Ciprofloxacin 400 MG/200 ML BAG 200 MG IV (21:52)
[2024-03-10] MEDS: Loratadine 10 MG Tablet PO (21:59)
[2024-03-10] MEDS: traZODone 100 MG Tablet PO (21:59)
[2024-03-10] MEDS: MELATONIN 10 MG TABLET 5 MG PO (21:59)
[2024-03-10] MEDS: Atorvastatin Calcium 10 MG Tablet PO (22:50)
[2024-03-10] MEDS: Pantoprazole Sodium 40 MG Tablet PO (22:50)
[2024-03-11] VITALS (7 sets, daily range): BP systolic 103–140; BP diastolic 61–88; PULSE 82–103; RESP 15–18; TEMP 36.5–36.8; O2SAT 95–100
--- NOTE | 2024-03-11 07:00 | NM_ITS ---
PROCEDURE: GASTRIC EMPTYING STUDY REASON FOR EXAM: Recurrent nausea and vomiting TECHNIQUE: Nuclear medicine solid phase gastric emptying study. Delayed imaging out to 60 minutes, only, was obtained, reportedly due to patient difficulty in cooperating, including due to pain.. RADIOPHARMACEUTICAL: 1.2 mCi technetium 99 M sulfur colloid, in oatmeal. Unfortunately, the patient was unable to eat more than 1/4 of the oatmeal portion provided. COMPARISON: None. FINDINGS: A limited study was performed. At the 60 minute timeframe, 23% gastric emptying was seen, which is within the normal range. By linear fit, estimated gastric emptying half time of 171.3 minutes. NM/Gastric Emptying Study IMPRESSION: Limited examination, with only 60 minute imaging obtained, and only 1/4 of the food portion ingested. Given this limitation, a normal amount of gastric emptying was seen and projected. Reading Location: [id number]
[2024-03-11 07:30] LABS: Absolute Lymphocyte Count 1.48 X10^3/uL (0.83-4.51); Absolute Neutrophil Count 2.8 X10^3/uL (2.0-7.7); Basophil# 0.06 X10^3/uL; Basophil% 1.1 % (0-1); Eosinophil# 0.17 X10^3/uL; Eosinophils% 3.2 % (0-5); Hematocrit 28.2 % (37-47); Hemoglobin 9.4 g/dL (12.0-15.0); Lymphocyte # 1.48 X10^3/ul (0.83-4.51); Lymphocyte % 27.9 % (19-41); Mean Corp Hgb Conc 33.3 g/dL (32-36); Mean Corpuscular Hgb 29.4 pg (27.0-32.0); Mean Corpuscular Volume 88.1 fL (81-99); Mean Platelet Vol. 10.3 fl (6.2-12.0); Monocyte# 0.79 X10^3/uL; Monocyte% 14.9 % (0-10); NRBC Flagged by Analyzer 0 % (0-5); Neutrophil % 52.7 % (47-70); Platelet Count 275 K/mm3 (150-450); RBC Distribution Width CV 14.5 % (11.6-14.6); RBC Distribution Width SD 46.4 fl (35.1-43.9); White Blood Count 5.3 K/mm3 (4.4-11.0)
[2024-03-11] MEDS: Menthol/Lanolin/Calamine/Znox 113 GM Tube 1 APPLIC TOPICAL ×3 (07:44→21:57)
[2024-03-11] MEDS: Ciprofloxacin 400 MG/200 ML BAG 200 MG IV (09:26)
[2024-03-11] MEDS: Enoxaparin 40 MG/0.4 ML Syringe SC (09:26)
[2024-03-11 09:32] LABS: ALB/GLOB Ratio 0.7 RATIO (0.9-2.4); AST(SGOT) 23 U/L (15-37); Alanine Aminotransfer ALT/SGPT 18 U/L (13-56); Albumin, Serum 2.3 g/dL (3.2-5.0); Alkaline Phosphatase 94 U/L (45-117); Anion Gap 8 (5-15); BUN 7 mg/dL (7-18); BUN/Creat Ratio 6.5 RATIO (10-20); Calcium,Total 8.8 mg/dL (8.5-10.1); Chloride 109 mmol/L (98-107); Creatinine, Serum 1.07 mg/dL (0.55-1.02); EST Glomerular Filtration Rate 55 mL/min (>60); Est Glom Filt Rate - Afr Amer 66 mL/min (>60); Estimated Creatinine Clearance 59.86 ml/min; Globulin 3.1 g/dL (2.2-4.2); Glucose 77 mg/dL (74-106); Magnesium 1.8 mg/dL (1.6-2.6); Phosphorus 2.7 mg/dL (2.5-4.9); Protein, Total 5.4 g/dL (6.4-8.2); Sodium Level 136 mmol/L (136-145); Thyroid Stim Hormone (TSH) 0.683 uIU/mL (0.358-3.740)
[2024-03-11] MEDS: busPIRone 15 MG TABLET PO ×2 (11:59→21:57)
[2024-03-11] MEDS: oxyCODONE 5 MG Tablet PO (11:59)
[2024-03-11] MEDS: Pantoprazole Sodium 40 MG Tablet PO ×2 (11:59→21:57)
[2024-03-11] MEDS: Verapamil SR 240 MG Tablet PO (12:00)
[2024-03-11] MEDS: Cyanocobalamin 500 MCG Tablet 1000 MCG PO (12:00)
[2024-03-11] MEDS: buPROPion (SR) 100 MG TABLET.SA 200 MG PO (12:00)
[2024-03-11] MEDS: Venlafaxine XR 150 MG Capsule PO (12:00)
[2024-03-11] MEDS: Potassium Chloride Oral Tablet 20 MEQ 60 MEQ PO (12:06)
[2024-03-11] MEDS: Ondansetron 4 MG/2 ML Vial IV (16:13)
--- NOTE | 2024-03-11 16:32 | CASEMGMT ---
Patient has order for discharge. SHWETHA GALLARDO updated [facility], adding PT/OT to order, resumption of care planned for Friday or Friday. SHWETHA GALLARDO in to discuss needs at discharge. Patient updated regarding resumption of HHC. Patient denies additional needs at discharge. Patient is currently on phone to schedule transport with [facility] [employer] [facility]. SHWETHA GALLARDO updated discharge plan.
--- NOTE | 2024-03-11 16:59 | PCM.PN.HOSP ---
Reason for Visit Reason for Visit: Lightheadedness Subjective Subjective Patient states she is having a little nausea right now. Is getting some Zofran. Has been able to eat without difficulty all day. We discussed the results of the gastric emptying study and however not complete that she was not able to comply with the entire study the limited study that we do have was unremarkable. The plan was for discharge today however she is unable to get a ride and we are unable to provide a ride so she will need to stay till tomorrow. Objective Data Objective Data Vital Signs: Vital Signs Temp Pulse Resp BP Pulse Ox O2 Del Method 98.2 F 95 18 140/62 H 100 Room Air 03/11/24 14:00 03/11/24 14:00 03/11/24 14:00 03/11/24 14:00 03/11/24 14:00 03/11/24 14:00 Oxygen Delivery Method Room Air Weight: 91.9 kg Body Mass Index (BMI) 32.7 Intake & Output: Intake and Output for Last 24 Hours 03/09/24 03/10/24 03/11/24 23:59 23:59 23:59 Intake Total 4007.25 / 4207.25 1520 / 1520 Output Total 1550 / 1550 Balance 4007.25 / 4207.25 -30 / -30 Lab / Micro Data 03/11/24 04:27 03/11/24 04:27 Labs: Laboratory Results - last 24 hr 03/11/24 04:27: WBC 5.3, RBC 3.20 L, Hgb 9.4 L, Hct 28.2 L, MCV 88.1, MCH 29.4, MCHC 33.3, RDW Std Deviation 46.4 H, RDW Coeff of Vicki 14.5, Plt Count 275, MPV 10.3, Immature Gran % (Auto) 0.200, Neut % (Auto) 52.7, Lymph % (Auto) 27.9, [place] % (Auto) 14.9 H, Eos % (Auto) 3.2, Baso % (Auto) 1.1 H, Absolute Neuts (auto) 2.8, Absolute Lymphs (auto) 1.48, Nucleated RBC % 0, Sodium 136, Potassium 3.0 L, Chloride 109 H, Carbon Dioxide 19.0 L, Anion Gap 8, BUN 7, Creatinine 1.07 H, Estim Creat Clear Calc 59.86, Est GFR (MDRD) Af Amer 66, Est GFR (MDRD) Non-Af 55 L, BUN/Creatinine Ratio 6.5 L, Glucose 77, Calcium 8.8, Phosphorus 2.7, Magnesium 1.8, Total Bilirubin 0.20, AST 23, ALT 18, Alkaline Phosphatase 94, Total Protein 5.4 L, Albumin 2.3 L, Globulin 3.1, Albumin/Globulin Ratio 0.7 L, TSH 0.683 Micro: Microbiology 03/10/24 04:50 Urine, Catheterized Urine Culture - 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 Given this limitation, a normal amount of gastric emptying was seen and projected. Reading Location: [address] Physical Exam Const alert, oriented x3, no apparent distress and well nourished; Negative for average body habitus or healthy appearing Constitutional Narrative: Obese, white female, sitting up in bed, currently appears comfortable, nontoxic, nursing at bedside General Appearance: cooperative HEENT normocephalic, head/scalp atraumatic, hearing grossly normal bilaterally and moist oral mucous membranes HEENT Narrative: Mallampati 3, no thrush Eyes Eyes Narrative: No scleral icterus Resp normal respiratory effort, no retractions, no use of accessory muscles and clear to auscultation bilaterally Auscultation: Negative for rales, rhonchi or wheezes Cardio regular rate, regular rhythm, S1 normal heart sound, S2 normal heart sound, no murmurs, no rub, no gallops and no clicks GI normal to inspection, nondistended, normoactive bowel sounds, soft to palpation and non-tender Extremity no clubbing, cyanosis or edema Extremity Narrative: 2+ pedal and radial pulses Neuro oriented x3, moves all extremities and no focal motor deficits Speech: speech normal Psych affect normal Psych Narrative: Very pleasant, interacts appropriately Assessment & Plan Assessment/Plan (1) Acute dehydration: (2) JENNIFER (acute kidney injury): (3) Nausea and vomiting: (4) Hyponatremia: (5) Hypokalemia: (6) Hypomagnesemia: (7) Metabolic acidosis: (8) Abnormal finding on urinalysis: PLAN: Plan Abdominal pain/nausea/vomiting -This has been reoccurring -Had recent EGD that was fairly unremarkable -Patient unable to do complete gastric emptying study however limited study was unremarkable -Add scopolamine patch -Discontinue Zofran and start Haldol 1 mg 3 times daily -Will need to follow-up with GI as an outpatient after discharge Gram-negative UTI -Awaiting species identification -Continue ciprofloxacin as patient has multiple allergies -Finalized culture pending JENNIFER on CKD stage II secondary to dehydration -Overall baseline renal function appears to be between 0.7 and 0.9 -1.83 on presentation and appears prerenal -Aggressive IV fluids -hold home losartan -hold home Lasix -hold home Aldactone Non-anion gap metabolic acidosis -Suspect related to GI losses and dehydration Hypokalemia -Still bit low at 3.0 -60 mEq given today Recheck in a.m. Hypomagnesemia -Patient has been given 2 g of magnesium -Recheck in a.m. Hypothyroidism -Continue home Synthroid -TSH is within normal limits Essential hypertension/hyperlipidemia -Continue home verapamil -Will discontinue Aldactone at discharge -Discontinue losartan/HCTZ at discharge -Continue home statin GERD -Continue p.o. Protonix History of small bowel resection/partial colectomy -No current issues Anxiety/depression/insomnia -Continue home venlafaxine -Continue home trazodone -Continue home BuSpar -Continue home Wellbutrin Obesity -Complicates treatment, prognosis, outcomes -Recommend weight loss -BMI is 32.7 DVT prophylaxis -Subcu Lovenox 40 mg daily CODE STATUS -DNR CCA okay for short-term intubation as per discussion with family at bedside prior to admission Disposition: -Patient was ready medically for discharge today but unable to find a ride for her and no family available to take her home. Will plan for discharge tomorrow Charges/Coding Visit Charges Inpatient E&M: 22755 Subs Hosp L2
[2024-03-11] MEDS: Scopolamine 1mg/72hr Patch 1 PATCH TD (17:36)
--- NOTE | 2024-03-11 18:39 | NURSING ---
Patient had ride arranged with provide a ride. Provide a ride called the nurses station to tell us that they were not coming. Lead Programmer Analyst of unit scheduled an appointment for the patient to be picked up at 6:15 am. Reviewed discharge with patient, IV and tele removed, provider aware of IV and tele removal, orders placed for okay with no tele or IV overnight.
[2024-03-11] MEDS: traZODone 100 MG Tablet PO (21:57)
[2024-03-11] MEDS: Loratadine 10 MG Tablet PO (21:57)
[2024-03-11] MEDS: Haloperidol 1 MG Tablet PO (21:57)
[2024-03-11] MEDS: Atorvastatin Calcium 10 MG Tablet PO (21:57)
[2024-03-11] MEDS: MELATONIN 10 MG TABLET 5 MG PO (21:58)
[2024-03-12 02:10] VITALS: BP 116/52; PULSE 87; RESP 16; TEMP 37.3; O2SAT 96
--- NOTE | 2024-03-12 09:40 | CASEMGMT ---
RN CM: Call received from pt's PAULINA Wagner. Update on dc and post-acute services including [facility] with PT/OT addition provided. DC summary sent via encrypted email to Mariely for continuity and transition of care facilitation. Tamica Del Rio RN AC
--- NOTE | 2024-03-12 16:24 | PCM.DC.SUM ---
Providers Date of Admission: 03/10/24 Date of Discharge: 03/12/24 Primary Care Physician: Chaparro Mejia MD Reason For Visit: JENNIFER/HYPOKALEMIA Diagnosis Discharge Diagnosis (1) Acute dehydration: Status: Acute Code(s): E86.0 - Dehydration (2) JENNIFER (acute kidney injury): Status: Acute Code(s): N17.9 - Acute kidney failure, unspecified (3) Nausea and vomiting: Status: Acute Code(s): R11.2 - Nausea with vomiting, unspecified (4) Hyponatremia: Status: Acute Code(s): E87.1 - Hypo-osmolality and hyponatremia (5) Hypokalemia: Status: Acute Code(s): E87.6 - Hypokalemia (6) Hypomagnesemia: Status: Acute Code(s): E83.42 - Hypomagnesemia (7) Metabolic acidosis: Status: Acute Code(s): E87.20 - Acidosis, unspecified (8) Abnormal finding on urinalysis: Status: Acute Code(s): R82.90 - Unspecified abnormal findings in urine Medications at Discharge Home Medications buspirone 30 mg tablet 15 mg PO BID anxiety 04/28/23 tizanidine 4 mg tablet 4 mg PO TID muscle relaxer 04/28/23 trazodone 100 mg tablet 100 mg PO QHS sleep 04/28/23 venlafaxine 150 mg capsule,extended release 24 hr 150 mg PO QDAY mental health 04/28/23 bupropion HCl 200 mg tablet,12 hr sustained-release 200 mg PO DAILY mental health 11/19/23 melatonin 5 mg capsule 5 mg PO QHS sleep 11/19/23 levothyroxine 125 mcg tablet 125 mcg PO DAILY@0600 thyroid #0 tabs 11/23/23 hydroxyzine HCl 25 mg tablet 25 mg PO TID PRN PRN anxiety 12/31/23 mecobalamin (vitamin B12) 1,000 mcg chewable tablet (B12 Active) 1,000 mcg PO QDAY vitamin 12/31/23 pantoprazole 40 mg tablet,delayed release (Protonix) 40 mg PO Q12H reflux 12/31/23 potassium chloride 20 mEq tablet,extended release 20 meq PO DAILY electrolyte 01/22/24 fexofenadine 180 mg tablet ([place] Allergy) 180 mg PO DAILY allergies 03/10/24 promethazine 12.5 mg tablet 12.5 mg PO BID PRN PRN Extreme nausea 03/10/24 rosuvastatin 5 mg tablet 5 mg PO QHS cholesterol 03/10/24 ciprofloxacin HCl 250 mg tablet 250 mg PO BID #6 tabs 03/11/24 haloperidol 1 mg tablet 1 mg PO TID #14 tabs 03/11/24 scopolamine base 1 mg over 3 days transdermal patch 1 patch transdermal Q3D #4 ea 03/11/24 verapamil 240 mg tablet,extended release 240 mg PO DAILY #30 tabs 03/11/24 Hospital Course Operations None Procedures - (Chest x-ray/CT abdomen pelvis/gastric emptying study) Summary of Care Provided Hospital Course: ROSALINDA VALE, is a 63 F who presented to the emergency department at [facility] 03/10/2024 with a chief complaints of weakness. The patient states she was walking to the bathroom last evening when she felt lightheaded and weak. She also has been having some dysuria and frequency. She did take a sleeping pill prior to bedtime and felt like her weakness was related to this. She also is complaining of some intermittent nausea vomiting and abdominal pain which is acute on chronic issue for her. She had an EGD done on 01/19/2024 that showed grade a esophagitis, erythematous mucosa in the gastric body and erythematous duodenopathy which was biopsied but no other acute findings. She does have history of bowel resection within the last 12 months. The etiology for her nausea vomiting is unclear. She states she has been compliant with her medications as able. Vital signs on presentation showed temperature of 96.8, heart rate 82, blood pressure initially was 87/55 but after 1 L IV fluids she was found to be 109/82, respiratory was 18 and pulse ox was 95% on room air. CBC showed normal white count with a chronic stable anemia of a hemoglobin of 10.5 with a baseline of 9-10. She does appear to be mildly hemoconcentrated. Chemistry panel showed mild hyponatremia with sodium 131, hypokalemia with potassium of 2.7, serum bicarb of 15 with a normal anion gap. Her serum creatinine was 1.83 and a baseline of 0.8-1.0. Her glucose was 135. Her magnesium was 1.4. Liver functions unremarkable. Lipase was normal. Her UA is suggestive of infection with leuk esterase, and 4+ bacteria, she does have a few white cells seen but not loaded. Urine culture was sent by the emergency department and she was started on ciprofloxacin due to multiple antibiotic allergies. She was given aggressive IV fluids and potassium and magnesium were replaced. Her nausea and vomiting improved. She still was having some intermittent issues. Given this, we prescribed scopolamine patches and Haldol and discontinued her Zofran and Phenergan. Gastric emptying study was not a wonderful study as she was not able to complete all of the oral intake however, the portions that we were able to complete were unremarkable. I am still unclear why she is having ongoing nausea and vomiting. I have asked her to follow-up with Dr. Reeder and have asked her to call to make an appointment to be seen in the next 2 weeks. She keeps having recurrent admissions where she comes in with JENNIFER and electrolyte disturbances related to persistent nausea vomiting and diarrhea. We discontinued her losartan, Lasix, and Aldactone as she was not experiencing hypertension and I suspect these medications in conjunction with her nausea vomiting are precipitating further JENNIFER and electrolyte abnormalities. Urine culture did show Klebsiella urinary tract infection so she was discharged with antibiotic course utilizing ciprofloxacin to complete an oral medication course. Vascular follow-up with her primary care care physician in the next 1 to 2 weeks. Discharge diagnoses: Klebsiella UTI Abdominal pain-resolved Nausea and vomiting-resolving JENNIFER-resolved CKD stage II Dehydration Non-anion gap metabolic acidosis-resolved Hypokalemia-resolved Hypomagnesemia-resolved Hypothyroidism Essential hypertension Hyperlipidemia GERD History of small bowel resection Partial colectomy Anxiety Depression Insomnia Obesity Weight / BMI Weight Weight: 91.9 kg Body Mass Index (BMI) 32.7 ABG / Lab / Microbiology Data 03/11/24 04:27 03/11/24 04:27 Laboratory: Laboratory Results - last 24 hr 03/11/24 04:27: WBC 5.3, RBC 3.20 L, Hgb 9.4 L, Hct 28.2 L, MCV 88.1, MCH 29.4, MCHC 33.3, RDW Std Deviation 46.4 H, RDW Coeff of Vicki 14.5, Plt Count 275, MPV 10.3, Immature Gran % (Auto) 0.200, Neut % (Auto) 52.7, Lymph % (Auto) 27.9, [place] % (Auto) 14.9 H, Eos % (Auto) 3.2, Baso % (Auto) 1.1 H, Absolute Neuts (auto) 2.8, Absolute Lymphs (auto) 1.48, Nucleated RBC % 0, Sodium 136, Potassium 3.0 L, Chloride 109 H, Carbon Dioxide 19.0 L, Anion Gap 8, BUN 7, Creatinine 1.07 H, Estim Creat Clear Calc 59.86, Est GFR (MDRD) Af Amer 66, Est GFR (MDRD) Non-Af 55 L, BUN/Creatinine Ratio 6.5 L, Glucose 77, Calcium 8.8, Phosphorus 2.7, Magnesium 1.8, Total Bilirubin 0.20, AST 23, ALT 18, Alkaline Phosphatase 94, Total Protein 5.4 L, Albumin 2.3 L, Globulin 3.1, Albumin/Globulin Ratio 0.7 L, TSH 0.683 Microbiology: Microbiology 03/10/24 04:50 Urine, Catheterized Urine Culture - Final Klebsiella oxytoca 03/10/24 03:28 Mucosa - Nasopharyngeal SARS-CoV-2, Influenza & RSV (PCR) - Final Radiography Diagnostic Testing: Radiology Impression Gastric Emptying Nuclear Medicine 03/11/24 07:00 IMPRESSION: Limited examination, with only 60 minute imaging obtained, and only 1/4 of the food portion ingested. Given this limitation, a normal amount of gastric emptying was seen and projected. Reading Location: [address] D/C Instructions DC O2, CPAP, BIPAP Needs Home O2 Discharge instructions: No Meaningful Use Info Meaningful Use Meaningful Use Diagnoses (Choose all that apply): None applicable Ischemic Stroke Statin Dosing Therapy Reference: STATIN DOSE THERAPY REFERENCE: * Patients > 75 years receive moderate or high dose statin therapy. * Patients 75 years or YOUNGER should receive HIGH intensity statin dose unless contraindicated. You will be required to document reason for non-treatment if statin daily dose does not meet guidelines. HIGH DOSE STATIN THERAPY DAILY Atorvastatin > than or = to 40 mg Rosuvastatin > than or = to 20 mg Amlodipine + Atorvastatin > than or = to 2.5/40 mg Ezetimibe + Simvastatin 10/80 mg Simvastatin 80mg Discharge Plan Admission Admit Date/Time: 03/10/24 07:32 Primary Reason for Your Visit: Lightheadedness Attending Provider: Belinda Doran Primary Care Provider: Chaparro Mejia Discharge Orders/Prescriptions Prescriptions: New verapamil 240 mg Tablet Extended Release 240 mg PO DAILY Qty: 30 0RF haloperidol 1 mg tablet 1 mg PO TID Qty: 14 0RF scopolamine base 1 mg over 3 days patch 3 day 1 patch transdermal Q3D Qty: 4 0RF ciprofloxacin HCl 250 mg tablet 250 mg PO BID Qty: 6 0RF Continued venlafaxine 150 mg capsule,extended release 24hr 150 mg PO QDAY buspirone 30 mg tablet 15 mg PO BID trazodone 100 mg tablet 100 mg PO QHS tizanidine 4 mg tablet 4 mg PO TID pantoprazole [Protonix] 40 mg tablet,delayed release (DR/EC) 40 mg PO Q12H hydroxyzine HCl 25 mg tablet 25 mg PO TID PRN PRN (Reason: anxiety) mecobalamin (vitamin B12) [B12 Active] 1,000 mcg tablet,chewable 1,000 mcg PO QDAY bupropion HCl 200 mg tablet sustained-release 12 hr 200 mg PO DAILY melatonin 5 mg capsule 5 mg PO QHS levothyroxine 125 mcg Tablet 125 mcg PO DAILY@0600 Qty: 0 0RF rosuvastatin 5 mg tablet 5 mg PO QHS fexofenadine [[place] Allergy] 180 mg tablet 180 mg PO DAILY promethazine 12.5 mg tablet 12.5 mg PO BID PRN PRN (Reason: Extreme nausea) Rx Instructions: 3 doses during day; last dose no later than 4 hr before bedtime potassium chloride 20 mEq tablet extended release 20 meq PO DAILY Discontinued losartan-hydrochlorothiazide 100-12.5 mg tablet 1 tab PO QDAY spironolactone 50 mg tablet 50 mg PO DAILY furosemide [Lasix] 40 mg tablet 40 mg PO LUNCH Referrals / Follow Up: Chaparro Mejia MD [Primary Care Provider] - In 1 Week Madi Reeder DO [Med Staff - Active Staff] - Within 2 Weeks (Call tomorrow for appt) Disposition Disposition (needs filled in before D/C Order can be placed): Home, Self Care
== END 2024-03-12 06:46 | disposition home or self-care (01) | DRG 683 ==
LOC: ED 07:41 → PCU 07:44
PROVIDERS: Admitting Provider Internal Medicine; Emergency Provider Emergency Medicine; PCP Family Medicine; Visit Provider Internal Medicine
DX: N17.9 Acute kidney failure, unspecified (principal); E87.20 Acidosis, unspecified; I13.0 Hypertensive heart and chronic kidney disease with heart failure and stage 1 through stage 4 chronic kidney disease, or unspecified chronic kidney disease; N39.0 Urinary tract infection, site not specified; Z66 Do not resuscitate; E03.9 Hypothyroidism, unspecified; Z68.32 Body mass index [BMI] 32.0-32.9, adult; R11.2 Nausea with vomiting, unspecified; E86.0 Dehydration; I50.9 Heart failure, unspecified; E83.42 Hypomagnesemia; E87.6 Hypokalemia; E78.5 Hyperlipidemia, unspecified; K21.9 Gastro-esophageal reflux disease without esophagitis; N18.2 Chronic kidney disease, stage 2 (mild); E66.9 Obesity, unspecified; Z87.891 Personal history of nicotine dependence; Z88.1 Allergy status to other antibiotic agents
CPT/HCPCS: 36415; 71045; 74176; 78264; 80048; 80053; 80076; 81001; 83605; 83690; 83735; 84100; 84443; 85025; 87077; 87086; 87088; 87186; 87631; 94668; 97162; 97166; 97530; 97535; 97802; 99285; A9541; A4216; J0744; J2405

== ENCOUNTER 2024-03-16 18:45 | Emergency (ER) | payer MEDICARE, MEDICAID, SELFPAY ==
[2024-03-16 18:48] VITALS: BP 160/57; PULSE 81; RESP 16; TEMP 36.6; O2SAT 98
--- NOTE | 2024-03-16 19:37 | CT_ITS ---
PROCEDURE: CT BRAIN WITHOUT CONTRAST REASON FOR EXAM: FELL AND HIT HEAD. DIZZINESS. HEADACHE. TECHNIQUE: Contiguous axial scans of 3.75 mm slice thicknesses with sagittal and coronal reconstruction images. One or more dose reduction techniques were utilized (e.g., automated exposure control, adjustment of mA and/or kv according to patient size, use of iterative reconstruction technique). COMPARISON: CT BRAIN DATED 01/22/2024. FINDINGS: No intraparenchymal hemorrhage. No abnormal areas of encephalomalacia. No mass effect or midline shift. Neri-white matter differentiation is normal. Ventricles and cisterns are appropriate size for patient's age. No extra-axial fluid collections. Cerebellum and posterior fossa unremarkable. Paranasal sinuses normal. Mastoid air cells are normal. Calvarium unremarkable. Soft tissues unremarkable. CT/Brain/Head without Contrast IMPRESSION: No acute intracranial abnormalities are demonstrated. Reading Location: [facility]
--- NOTE | 2024-03-16 20:57 | EDS_ITS ---
HPI History of Present Illness Chief Complaint: Fall Detail of Chief Complaint: Fall after using commode Informant: patient Onset/Context/Timing Onset: Today and Hours Mechanism/Context: Blunt Injury and Fall Location of pain/injuries: - (Occiput) Quality of Pain: Dull, Aching and Throbbing Location: Occiput Current Severity: Severe Maximum Severity: Severe Worsened by: Palpation Relieved by: Nothing Associated Symptoms Associated Symptoms: Positive for Loss of consciousness (Patient states she was dazed. She is not amnestic.); Negative for Parasthesias, Weakness, Loss of function or Inability to ambulate Narrative Narrative: Patient is a 63-year-old female. She fell after using the commode. She was on the commode. She states she got lightheaded. She stood up. She felt more lightheaded. She did not lock her walker. Because she did not lock her walker it moved and she fell hitting the back of her head. She states she was dazed. She states she has a severe headache. She denies double vision, blurred vision loss of vision. Nuys photophobia or sonophobia. She denies neck pain. Denies paresthesia, anesthesia motors upper lower extremity. Denies trouble with speech or swallowing. She denies cardiac respiratory symptoms. She denies black or maroon-colored stool. Patient is asking for something other than Tylenol for headache. Patient was informed I need to review the CAT scan before ordering anything since I do not believe she needs an IV. Prior similar symptoms: No Recent Illness/Hospitalization: No [facility] Medical History Anemia No natural teeth Wears glasses Depression Anxiety Walker as ambulation aid Arthritis Low iron Excessive bleeding Restless legs Heartburn Shortness of breath on exertion Former smoker History of echocardiogram Hypoalbuminemia Obesity (BMI 30-39.9) Suspected inflammatory bowel disease Elevated troponin Heart failure Gastroenteritis Diarrhea Small bowel perforation Small bowel ischemia Trigger finger, left ring finger Trigger finger, right ring finger Right carpal tunnel syndrome Bilateral carpal tunnel syndrome Hypothyroidism Anxiety and depression High cholesterol Hypertension Home Medications ?Medication ?Instructions ?Recorded ?Last Taken ?Type buspirone 30 mg tablet 15 mg PO BID anxiety 4 Unknown History tizanidine 4 mg tablet 4 mg PO TID muscle relaxer 0 04/28/23 Unknown History trazodone 100 mg tablet 100 mg PO QHS sleep 04/28/23 Unknown History venlafaxine 150 mg 150 mg PO QDAY mental health 04/28/23 Unknown History capsule,extended release 24 hr bupropion HCl 200 mg tablet,12 hr 200 mg PO DAILY [facility] 11/19/23 Unknown History sustained-release melatonin 5 mg capsule 5 mg PO QHS sleep 11/19/23 U nknown History levothyroxine 125 mcg tablet 125 mcg PO DAILY@0600 thy roid #0 11/23/23 Unknown Rx tabs hydroxyzine HCl 25 mg tablet 25 mg PO TID PRN PRN anxi ety 12/31/23 Unknown History mecobalamin (vitamin B12) 1,000 1,000 mcg PO QDAY ludivina min 12/31/23 Unknown History mcg chewable tablet (B12 Active) pantoprazole 40 mg tablet,delayed 40 mg PO Q12H reflux 12/31/23 Unknown History release (Protonix) potassium chloride 20 mEq 20 meq PO DAILY electrolyte 01/22/24 Unknown History tablet,extended release fexofenadine 180 mg tablet 180 mg PO DAILY allergies 0 03/10/24 Unknown History ([facility]) promethazine 12.5 mg tablet 12.5 mg PO BID PRN PRN Ext dwayne 03/10/24 Unknown History nausea rosuvastatin 5 mg tablet 5 mg PO QHS cholesterol 02/11 11/04 Unknown History ciprofloxacin HCl 250 mg tablet 250 mg PO BID #6 tabs 03/11/24 Unknown Rx haloperidol 1 mg tablet 1 mg PO TID #14 tabs 5 Unknown Rx scopolamine base 1 mg over 3 days 1 patch transdermal Q3D #4 ea 03/11/24 Unknown Rx transdermal patch verapamil 240 mg tablet,extended 240 mg PO DAILY #30 t abs 03/11/24 Unknown Rx release Allergy/AdvReac Type Severity Reaction Status Date / Time cefaclor (From Ceclor) Allergy Anaphylaxis Verified 03/16/24 18:54 chlorhexidine Allergy Hives Verified 03/16/24 18:54 codeine Allergy Anaphylaxis Verified 03/16/24 18:54 paroxetine (From Paxil) Allergy Anaphylaxis Verified 03/16/24 18:54 Penicillins Allergy Anaphylaxis Verified 03/16/24 18:54 Sulfa (Sulfonamide Allergy Anaphylaxis Verified 03/16/24 18:54 Antibiotics) magnesium sulfate AdvReac Severe Nausea/Vom/ Verified 03/16/24 18:54 Diarrhea Family History Mother Heart disease Father Heart disease Surgical History History of carpal tunnel release of both wrists History of exploratory laparotomy S/P TKR (total knee replacement) History of shoulder replacement History of hysterectomy History of cholecystectomy Hx of appendectomy Social History household members: none Smoking Status: Former smoker alcohol intake: never substance use type: does not use ROS ROS ED Constitutional Constitutional ED: Denies chills, fever(s) or subjective Eyes Eyes: Denies blurry vision or change in vision ENT ENT ED: Reports other Details: Denies epistaxis or dental trauma. Cardiovascular Cardiovascular: Denies chest pain or palpitations Respiratory/Chest Respiratory/Chest: Denies cough, dyspnea or dyspnea on exertion Gastrointestinal Gastrointestinal: Denies abdominal pain, melena or nausea Genitourinary Genitourinary ED: Denies hematuria Musculoskeletal Musculoskeletal: Denies back pain or neck pain Integumentary Reports other Details: Skin tear dorsal surface left wrist radial side. Neurologic Neurologic: Reports headache(s); Denies paresthesias or weakness Psychiatric Psychiatric: Reports anxiety and depression Hematologic/Lymphatic Hematologic/Lymphatic: Denies easy bleeding or easy bruising EXAM Physical Exam Const Vital Signs: 03/16/24 18:48 03/16/24 19:37 Temperature 97.8 F Temperature Source Oral Pulse Rate 81 Respiratory Rate 16 Respiratory Effort Normal Non-Labored Respiratory Depth Normal Respiratory Pattern Normal Blood Pressure 160/57 H Blood Pressure Mean 91 Pulse Ox 98 Oxygen Delivery Method Room Air Room Air Positive well nourished and well developed Constitutional Narrative: Patient began to cry after I examined her because of the severe head pain that was made worse when I palpated the occipital hematoma. Prior to me palpating her scalp she was not tearful. General Appearance ED: well developed HEENT Reports TM's clear HEENT Narrative: No dental trauma. trauma and tenderness Nose: Negative for septum abnormal Tympanic Membrane ED: Yes TM's clear Eyes PERRL and EOMs intact bilaterally General Eye ED: Yes other Other Details: No subconjunctival hemorrhage. Chest Wall inspection of chest normal and palpation of chest normal Resp normal respiratory effort and clear to auscultation bilaterally Cardio regular rhythm, S1 normal heart sound, S2 normal heart sound and no murmurs Rate: regular rate Back/Spine normal to inspection and no thoracic nor lumbar tenderness Extremity Extremity Narrative: Multiple bruises and abrasions from prior falls and skin tear as previously documented Neuro oriented x3, CN's II-XII intact bilaterally, moves all extremities, no focal motor deficits and no sensory deficits noted Reymundo Coma Scale: document GCS findings Spontaneous Obeys Commands Oriented 15 Sensorium / Orientation: alert Deep Tendon Reflexes: Rt Triceps (C7): 2+, Lt Triceps (C7): 2+, Rt Biceps (C5, C6): 2+, Lt Biceps (C5, C6): 2+, Rt Brachioradialis (C6): 2+, Lt Brachioradialis (C6): 2+, Rt Patellar (L4): 2+, Lt Patellar (L4): 2+, Rt Ankle (S1): 2+ and Lt Ankle (S1): 2+ Deep Tendon Reflexes Back: Rt Patellar (L4): 2+, Lt Patellar (L4): 2+, Rt Ankle (S1): 2+ and Lt Ankle (S1): 2+ Plantar Reflex: Downgoing: bilateral (There is no Babinski sign noted right or left.) Psych Mood & Affect: tearful Skin Skin Narrative: Prior bruises and skin tear as previously documented MDM MDM MDM Narrative Medical decision making narrative: Per the [facility] CT head rule imaging of the head is warranted. Therefore will order CT of the head without contrast. C-spine was cleared per [facility] criteria. Skin tear will require a dressing and bacitracin. There is no concern for fracture of the hand or wrist. There is no point tenderness. Median, radial and ulnar function intact. Radiography Diagnostic Testing: Clinical Impression(s) from Imaging Studies Brain CT 03/16/24 19:37 IMPRESSION: No acute intracranial abnormalities are demonstrated. [facility] There is evidence of a hematoma occipital area. This is extracranial. There is no intracranial abnormality noted. Treatment and Re-Evaluation Narrative: Patient was treated with Tylenol for her occipital hematoma. Discharge Plan Triage Chief Complaint: Fall ED Provider: Kb Castro Dx/Rx/DC Orders Clinical Impression: Concussion with loss of consciousness, Hematoma of occipital surface of head, Injury due to fall, Vasovagal near-syncope Instructions: ED Concussion, ED Hematoma, ED Near-Fainting- Vagal Reaction Prescriptions: No Action venlafaxine 150 mg capsule,extended release 24hr 150 mg PO QDAY buspirone 30 mg tablet 15 mg PO BID trazodone 100 mg tablet 100 mg PO QHS tizanidine 4 mg tablet 4 mg PO TID pantoprazole [Protonix] 40 mg tablet,delayed release (DR/EC) 40 mg PO Q12H hydroxyzine HCl 25 mg tablet 25 mg PO TID PRN PRN (Reason: anxiety) mecobalamin (vitamin B12) [B12 Active] 1,000 mcg tablet,chewable 1,000 mcg PO QDAY bupropion HCl 200 mg tablet sustained-release 12 hr 200 mg PO DAILY melatonin 5 mg capsule 5 mg PO QHS levothyroxine 125 mcg Tablet 125 mcg PO DAILY@0600 Qty: 0 0RF rosuvastatin 5 mg tablet 5 mg PO QHS fexofenadine [[facility]] 180 mg tablet 180 mg PO DAILY promethazine 12.5 mg tablet 12.5 mg PO BID PRN PRN (Reason: Extreme nausea) Rx Instructions: 3 doses during day; last dose no later than 4 hr before bedtime verapamil 240 mg Tablet Extended Release 240 mg PO DAILY Qty: 30 0RF haloperidol 1 mg tablet 1 mg PO TID Qty: 14 0RF scopolamine base 1 mg over 3 days patch 3 day 1 patch transdermal Q3D Qty: 4 0RF ciprofloxacin HCl 250 mg tablet 250 mg PO BID Qty: 6 0RF potassium chloride 20 mEq tablet extended release 20 meq PO DAILY Primary Care Provider: Chaparro Mejia Referrals: Chaparro Mejia MD [Primary Care Provider] - 1 Week if not improving Activity Restrictions/Additional Instructions: 1. Take Tylenol for your headache 2. Apply ice to the back your head 6 times a day Print Language: Pashto Disposition Disposition: Home, Self Care
[2024-03-16 21:50] VITALS: BP 118/99; PULSE 99; RESP 18; TEMP 36.7; O2SAT 100
[2024-03-16 23:54] VITALS: PULSE 75; RESP 18; O2SAT 97
--- NOTE | 2024-03-16 23:54 | ED.RN ---
The patient was c/o pain and requesting oxy. Dr Castro did not prescribe oxy and we do not have any record of her being prescribed it for her home meds. Per Dr Castro's d/c instructions, tylenol for pain. This RN spoke with Dr June since Dr Castro had left for the night and Dr June denied oxy as well. The patient is aware and is currently crying. Pt declined tylenol.
== END 2024-03-17 00:45 | disposition home or self-care (01) ==
PROVIDERS: Emergency Provider Emergency Medicine; PCP Family Medicine; Visit Provider Emergency Medicine
DX: S06.0X0A Concussion without loss of consciousness, initial encounter (principal); S00.03XA Contusion of scalp, initial encounter; S61.512A Laceration without foreign body of left wrist, initial encounter; R55 Syncope and collapse; W18.39XA Other fall on same level, initial encounter; I10 Essential (primary) hypertension; F41.9 Anxiety disorder, unspecified; F32.A Depression, unspecified; E03.9 Hypothyroidism, unspecified; E78.00 Pure hypercholesterolemia, unspecified; G56.03 Carpal tunnel syndrome, bilateral upper limbs; G25.81 Restless legs syndrome; Z88.1 Allergy status to other antibiotic agents; Z88.2 Allergy status to sulfonamides; Z88.0 Allergy status to penicillin; Z79.899 Other long term (current) drug therapy; Z79.890 Hormone replacement therapy; Z87.891 Personal history of nicotine dependence
CPT/HCPCS: 70450; 99285; A4216

== ENCOUNTER 2024-03-17 12:49 | Outpatient (RCR) | payer MEDICARE, MEDICAID, SELFPAY ==
[2024-03-17 13:34] VITALS: BP 119/60; PULSE 93; RESP 16; TEMP 36.3; BMI 32.5
--- NOTE | 2024-03-17 14:53 | HP.PCM_ITS ---
History of Present Illness Date of Service: 03/17/24 Chief Complaint: Bilateral ischial/buttock ulcer clusters and left hand skin tear History of Wound: Patient is 63 year old female who presents with bilateral ischial/buttock ulcer clusters that she has had since September after she had surgery to remove a portion of her colon. She states that they are very painful. She has been placing barrier cream on them. She states that she uses a walker/rollator to walk. She spends a lot of time sitting. She fell yesterday and hit her head and obtained a skin tear on her left dorsal hand, proximal to her thumb. She went to the ED and was discharged home. She has a history of small bowel perforation, anxiety, depression, HTN, hyperlipidemia, trigger finger of bilateral ring fingers, bilateral carpal tunnel syndrome, fall. Today she denies fever, chills, nausea or vomiting. She comes in for further evaluation of her bilateral buttock ulcers and her left hand skin tear. Progress of Wound: Bilateral buttocks/ischium with cluster of superficial scabbing. Very tender to palpation. Left hand skin tear with bruising surrounding it. Skin tear is stable and pink. [facility]LY [facility] Medical History Anemia No natural teeth Wears glasses Depression Anxiety Walker as ambulation aid Arthritis Low iron Excessive bleeding Restless legs Heartburn Shortness of breath on exertion Former smoker History of echocardiogram Hypoalbuminemia Obesity (BMI 30-39.9) Suspected inflammatory bowel disease Elevated troponin Heart failure Gastroenteritis Diarrhea Small bowel perforation Small bowel ischemia Trigger finger, left ring finger Trigger finger, right ring finger Right carpal tunnel syndrome Bilateral carpal tunnel syndrome Hypothyroidism Anxiety and depression High cholesterol Hypertension Home Medications ?Medication ?Instructions ?Recorded ?Last Taken ?Type buspirone 30 mg tablet 15 mg PO BID anxiety 4 Unknown History tizanidine 4 mg tablet 4 mg PO TID muscle relaxer 0 04/28/23 Unknown History trazodone 100 mg tablet 100 mg PO QHS sleep 04/28/23 Unknown History venlafaxine 150 mg 150 mg PO QDAY mental health 04/28/23 Unknown History capsule,extended release 24 hr bupropion HCl 200 mg tablet,12 hr 200 mg PO DAILY [facility] 11/19/23 Unknown History sustained-release melatonin 5 mg capsule 5 mg PO QHS sleep 11/19/23 U nknown History levothyroxine 125 mcg tablet 125 mcg PO DAILY@0600 thy roid #0 11/23/23 Unknown Rx tabs hydroxyzine HCl 25 mg tablet 25 mg PO TID PRN PRN anxi ety 12/31/23 Unknown History mecobalamin (vitamin B12) 1,000 1,000 mcg PO QDAY ludivina min 12/31/23 Unknown History mcg chewable tablet (B12 Active) pantoprazole 40 mg tablet,delayed 40 mg PO Q12H reflux 12/31/23 Unknown History release (Protonix) potassium chloride 20 mEq 20 meq PO DAILY electrolyte 01/22/24 Unknown History tablet,extended release fexofenadine 180 mg tablet 180 mg PO DAILY allergies 0 03/10/24 Unknown History ([facility]) promethazine 12.5 mg tablet 12.5 mg PO BID PRN PRN Ext dwayne 03/10/24 Unknown History nausea rosuvastatin 5 mg tablet 5 mg PO QHS cholesterol 02/11 11/04 Unknown History ciprofloxacin HCl 250 mg tablet 250 mg PO BID #6 tabs 03/11/24 Unknown Rx haloperidol 1 mg tablet 1 mg PO TID #14 tabs 5 Unknown Rx scopolamine base 1 mg over 3 days 1 patch transdermal Q3D #4 ea 03/11/24 Unknown Rx transdermal patch verapamil 240 mg tablet,extended 240 mg PO DAILY #30 t abs 03/11/24 Unknown Rx release Allergy/AdvReac Type Severity Reaction Status Date / Time cefaclor (From Ceclor) Allergy Anaphylaxis Verified 03/17/24 13:34 chlorhexidine Allergy Hives Verified 03/17/24 13:34 codeine Allergy Anaphylaxis Verified 03/17/24 13:34 paroxetine (From Paxil) Allergy Anaphylaxis Verified 03/17/24 13:34 Penicillins Allergy Anaphylaxis Verified 03/17/24 13:34 Sulfa (Sulfonamide Allergy Anaphylaxis Verified 03/17/24 13:34 Antibiotics) magnesium sulfate AdvReac Severe Nausea/Vom/ Verified 03/17/24 13:34 Diarrhea Family History Mother Heart disease Father Heart disease Surgical History History of carpal tunnel release of both wrists History of exploratory laparotomy S/P TKR (total knee replacement) History of shoulder replacement History of hysterectomy History of cholecystectomy Hx of appendectomy Social History household members: none Smoking Status: Former smoker alcohol intake: never substance use type: does not use ROS Constitutional Constitutional: Reports as per HPI; Denies chills or fever(s) Eyes Eyes: Reports none ENT HEENT: Reports none Cardiovascular Cardiovascular: Denies chest pain or dyspnea Respiratory/Chest Respiratory/Chest: Denies cough or dyspnea Gastrointestinal Gastrointestinal: Reports as per HPI Genitourinary Genitourinary: Reports none Musculoskeletal Musculoskeletal: Reports as per HPI Integumentary Integumentary: Reports as per HPI, skin ulcer and wounds Neurologic Neurologic: Reports as per HPI and abnormal gait Psychiatric Psychiatric: Reports as per HPI and anxiety Endocrine Endocrinology: Reports none Hematologic/Lymphatic Hematologic/Lymphatic: Reports none Vital Signs Vital Signs Vital Signs: 03/17/24 13:34 Temperature 97.4 F L Temperature Source Temporal Pulse Rate 93 Respiratory Rate 16 Blood Pressure 119/60 Blood Pressure Mean 79 Blood Pressure Source Monitor Blood Pressure Position Semi-Fowlers Blood Pressure Location Left Arm Oxygen Delivery Method Room Air Weight Weight: 202 lb Body Mass Index (BMI) 32.5 Physical Exam Const alert and oriented x3 General Appearance: cooperative HEENT normocephalic HEENT Narrative: Has bruise from where she hit her head yestday. Eyes General Eye: normal appearance of both eyes Lymph Lymphatic: no lymphedema noted Resp normal respiratory effort, normal air movement and clear to auscultation bilaterally Effort and Inspection: able to speak in complete sentences Cardio regular rate and regular rhythm Peripheral Pulses: pulses 2+ throughout Extremity normal capillary refill Skin Wound Narrative: Bilateral buttocks/ischium cluster with superficial scabbing, removed the scabbing and no open wounds at this time. Very tender to palpation. Left hand skin tear with bruising surrounding it. Skin tear is stable and pink. Neuro oriented x3 Speech: speech normal Psych thought process normal and cooperative Debridement Note Debridement Note No debridement was completed: No debridement was completed today Post-Debridement Measurements and Additional Note: Post-Debridement Measurements/Treatment WC - Nurse 1 - General Ulcer Assessment Start: 03/17/24 13:27 Freq: Status: Active Protocol: [email or web address] Activity Type Activity Date Activity User E-sign Co-sign Detail Recorded Client Recorded Date Recorded By Document 03/17/24 13:34 KW [id number] 03/17/24 13:56 KW 03/17/24 13:34 WC - Today's Visit Information Type of service Initial Visit Arrival Mode Wheelchair Patient Identification Verified (Name & Yes ) Height and Weight Height 5 ft 6 in Weight 202 lb Weight in Pounds 202.0 lbs Weight Measurement Method Estimated by Patient Body Mass Index (BMI) 32.5 BMI Classification Obese Vital Signs Temperature (97.8 F-99.1 F) 97.4 F L Temperature Source Temporal Pulse Rate (60-100) 93 Pulse Location Monitor Respiratory Rate (12-18) 16 Respiratory rate source Observation Oxygen Delivery Method Room Air Blood Pressure (90/60-120/80) 119/60 Blood Pressure Mean 79 Source Monitor Position Semi-Fowlers Blood Pressure Location Left Arm History Since Last Visit- (Skip if this is Patient's initial visit) Left Footwear Regular Shoe Right Footwear Regular Shoe Pain Scale: 0-10 Numeric Is Patient Pain Free? No buttocks -Description Sharp Communication Assessment Preferred language Welsh Audio Visual Tech Required No Able to Read Yes Able to Write Yes Communication Tools None Caregiver Communication Skills No Impairment Impairment Right Hearing Abillity Normal Left Hearing Abillity Normal Visual Assistive Devices Glasses Teaching Assessment Preferences Verbal,Written, Demonstration Barriers to Learning None Readiness To Learn Excellent Willingness to Engage in Self Management High Activies Readiness to Engage in Self Management High Activities Anxiety Level Calm Cooperation Cooperative Perception Coherent Interest in Health Problem Asks Questions Education Importance Acknowledges Need Does Patient Smoke tobacco or other No substances Smoking Status Former smoker Is Patient Diabetic No Functional Assessment Recent Decline in Ability to Perform Ambulation, Bathing, Transferring Culture/Congregational/Lead Care Manager Cultural/Congregational Needs that may affect No Treatment Plan Would you allow our hospital computer clerk to No meet you for the purpose of spiritual/ emotional support? Lead Care Manager to contact place of congregational No WC - Nurse 1 - General Ulcer Measurement Start: 03/17/24 13:27 Freq: Status: Active Protocol: Activity Type Activity Date Activity User E-sign Co-sign Detail Recorded Client Recorded Date Recorded By Document 03/17/24 13:34 KW [id number] 03/17/24 13:56 [email or web address] 03/17/24 13:34 Wound Center Nurse 1 #3 lt hand -Current Size (cm) - Length 2 -Current Size (cm) - Width 1.5 -Current Size (cm) - Depth 0.1 -Total Square Cm 3.0 -Exudate Amt Small -Exudate Type Serosanguineous -Wound Margin Distinct, Outline Attached -Granulation Amt Large (67-100%) -Granulation Quality [place],Red -Necrosis Amt Small (1-33%) -Necrotic Tissue Type Eschar -Texture (Emi-wound Skin Appearance) Assessed -Moisture (Emi-wound Skin Appearance) Assessed -Color (Emi-wound Skin Appearance) Assessed, Ecchymosis -Temperature (Emi-wound Skin No Abnormality Appearance) (Pt Warm) -Tenderness on Palpation (Emi-wound No Skin Appearance) -Ulcer Cleansing Rinsed/ Irrigated with Saline -Foul Odor after Cleansing No -Anesthetic Used 5% Lidocaine Gel #2 r buttocks -Current Size (cm) - Length 0.3 -Current Size (cm) - Width 0.3 -Current Size (cm) - Depth 0.1 -Total Square Cm 0.09 -Exudate Amt Small -Exudate Type Serosanguineous -Wound Margin Distinct, Outline Attached -Granulation Amt Small (1-33%) -Granulation Quality [place] -Necrosis Amt Large (67-100%) -Necrotic Tissue Type Adherent Slough -Texture (Emi-wound Skin Appearance) Assessed -Moisture (Emi-wound Skin Appearance) Assessed -Color (Emi-wound Skin Appearance) Assessed -Temperature (Emi-wound Skin No Abnormality Appearance) (Pt Warm) -Tenderness on Palpation (Emi-wound No Skin Appearance) -Ulcer Cleansing Rinsed/ Irrigated with Saline -Foul Odor after Cleansing No -Anesthetic Used 5% Lidocaine Gel #1 lt buttocks -Current Size (cm) - Length 0.3 -Current Size (cm) - Width 1.5 -Current Size (cm) - Depth 0.1 -Total Square Cm 0.45 -Exudate Amt Small -Exudate Type Serosanguineous -Wound Margin Distinct, Outline Attached -Granulation Amt Small (1-33%) -Granulation Quality [place] -Necrosis Amt Medium (34-66%) -Necrotic Tissue Type Adherent Slough -Texture (Emi-wound Skin Appearance) Assessed -Moisture (Emi-wound Skin Appearance) Assessed -Color (Emi-wound Skin Appearance) Assessed, Ecchymosis -Temperature (Emi-wound Skin No Abnormality Appearance) (Pt Warm) -Tenderness on Palpation (Emi-wound No Skin Appearance) -Ulcer Cleansing Rinsed/ Irrigated with Saline -Foul Odor after Cleansing No -Anesthetic Used 5% Lidocaine Gel WC - Nurse 2 - General Ulcer CM Notes Start: 03/17/24 13:27 Freq: Status: Active Protocol: Activity Type Activity Date Activity User E-sign Co-sign Detail Recorded Client Recorded Date Recorded By Document 03/17/24 14:09 [id number] 03/17/24 14:15 03/17/24 14:09 Wound Center Nurse 2 #3 lt hand -Time 14:09 -Correct Patient Yes -Correct Side, Site, Position Yes -Correct Procedure No -Procedure Performed No -Post Debridement (cm) - Length 3.5 -Post Debridement (cm) - Width 1.0 -Post Debridement (cm) - Depth 0.1 -Total Square (Post) (cm) 3.50 -Tunneling No -Undermining/Tunneling No -Circular Undermining No -Wound/Ulcer Outcome Not Healed -Ulcer Cleansing Not Cleansed -Foul Odor after Cleansing No -Bioengineered Tissue No -Bleeding Controlled with NA -Wound Comment(s) this is an acute wound from a fall yesterday #2 r buttocks -Time 14:10 -Correct Patient Yes -Correct Side, Site, Position Yes -Correct Procedure No -Procedure Performed No -Post Debridement (cm) - Length 0.5 -Post Debridement (cm) - Width 0.5 -Post Debridement (cm) - Depth 0.1 -Total Square (Post) (cm) 0.25 -Tunneling No -Undermining/Tunneling No -Circular Undermining No -Bleeding Controlled with NA -Wound Comment(s) Just a scab #1 lt buttocks -Time 14:10 -Correct Patient Yes -Correct Side, Site, Position Yes -Correct Procedure No -Procedure Performed No -Post Debridement (cm) - Length 0.5 -Post Debridement (cm) - Width 1.0 -Post Debridement (cm) - Depth 0.1 -Total Square (Post) (cm) 0.50 -Tunneling No -Undermining/Tunneling No -Circular Undermining No -Foul Odor after Cleansing No -Bioengineered Tissue No -Bleeding Controlled with NA -Wound Comment(s) scab Pain Scale: 0-10 Numeric Is Patient Pain Free? Yes - Nurse 3 - General Ulcer D/C NN Start: 03/17/24 13:27 Freq: Status: Active Protocol: Activity Type Activity Date Activity User E-sign Co-sign Detail Recorded Client Recorded Date Recorded By Document 03/17/24 14:24 KW [id number] 03/17/24 14:25 KW 03/17/24 14:24 Wound Care Center Nurse 3 #3 lt hand -Other Dressing atb ointment -Primary Dressing Covered/Secured with Dry Gauze & Roll Gauze, Secured with Tape #2 r buttocks -Other Dressing mirian #1 lt buttocks -Other Dressing mirian Pain Scale: 0-10 Numeric Is Patient Pain Free? Yes WC - Visit Discharge Discharge Condition Stable Ambulatory Status Wheelchair Transportation Private Auto Medication Reconcilliation completed & No provided to patient/care provider Clinical Summary of Care Provided Yes Charges/Coding Visit Charges Office Visits / Consults: [id number] OV L3 Est 20min Assessment/Plan Assessment/Plan (1) Decubitus ulcer of left ischial area: CODE(S): L89.329 - Pressure ulcer of left buttock, unspecified stage QUALIFIERS: Pressure injury stage: stage 1 Qualified Code(s): L89.321 - Pressure ulcer of left buttock, stage 1 (2) Decubitus ulcer of right ischial area: CODE(S): L89.319 - Pressure ulcer of right buttock, unspecified stage QUALIFIERS: Pressure injury stage: stage 1 Qualified Code(s): L89.311 - Pressure ulcer of right buttock, stage 1 (3) Skin tear of left hand without complication: CODE(S): S61.412A - Laceration without foreign body of left hand, initial encounter QUALIFIERS: Encounter type: initial encounter Qualified Code(s): S61.412A - Laceration without foreign body of left hand, initial encounter PLAN: Plan Patient evaluated at the wound healing center today. She was very anxious and tearful during the exam and when removing the old scabbing that had overhang and was causing most of her discomfort. Wound Care - Bilateral ischial/buttock areas continue to use barrier cream at least once a day and as needed. Wash area daily with soap and water. Encouraged to off load as much as possible. With her sitting for long periods of time, that is impacting the pressure on these areas. For her left dorsal hand skin tear - place antibiotic ointment daily and cover with gauze and cling. Wash with soap and water at the time of the dressing changes. Follow up 2 weeks. Call or come in sooner if develop any concerns.
--- NOTE | 2024-03-18 09:41 | WC ---
PHOTO 03/17/24 LEFT HAND
== END 2024-04-09 23:59 | disposition home or self-care (01) ==
LOC: WC 12:49
PROVIDERS: PCP Family Medicine; Referring Provider Family Medicine; Visit Provider Nurse Practitioner Family
DX: L89.321 Pressure ulcer of left buttock, stage 1 (principal); Z87.891 Personal history of nicotine dependence; E78.5 Hyperlipidemia, unspecified; S61.412A Laceration without foreign body of left hand, initial encounter; F41.9 Anxiety disorder, unspecified; E03.9 Hypothyroidism, unspecified; Z90.49 Acquired absence of other specified parts of digestive tract; F32.A Depression, unspecified; L89.311 Pressure ulcer of right buttock, stage 1; I10 Essential (primary) hypertension; Z91.81 History of falling; Z90.710 Acquired absence of both cervix and uterus; Z90.79 Acquired absence of other genital organ(s)
CPT/HCPCS: 99213; G0463

== ENCOUNTER 2024-03-20 15:42 | Inpatient (IN) | payer MEDICARE, MEDICAID, SELFPAY ==
[2024-03-20 15:44] VITALS: BP 148/86; PULSE 96; RESP 20; TEMP 36.5; O2SAT 100
--- NOTE | 2024-03-20 16:38 | EDS_ITS ---
HPI History of Present Illness Chief Complaint: Nausea/Vomiting/Diarrhea Narrative Narrative: 63-year-old female presents with nausea, vomiting, and diarrhea as well as feeling lightheaded. She states that she always has diarrhea secondary to her having bowel ischemia. She only has half her colon and partial small bowel. She states she was nauseated yesterday, and vomited today. She denies any blood in her emesis. States she does not feel well and thinks that her potassium may be low from all the vomiting. She is post to be supplementing potassium at home as well. She complains of diffuse abdominal pain, and the nausea and vomiting, not feeling well. No blood in her stool. She only had 2-3 episodes of loose stools today. [facility] Medical History Nausea and vomiting Anemia No natural teeth Wears glasses Depression Anxiety Walker as ambulation aid Arthritis Low iron Excessive bleeding Restless legs Heartburn Shortness of breath on exertion Former smoker History of echocardiogram Hypoalbuminemia Obesity (BMI 30-39.9) Suspected inflammatory bowel disease Elevated troponin Heart failure Gastroenteritis Diarrhea Small bowel perforation Small bowel ischemia Trigger finger, left ring finger Trigger finger, right ring finger Right carpal tunnel syndrome Bilateral carpal tunnel syndrome Hypothyroidism Anxiety and depression High cholesterol Hypertension Home Medications ?Medication ?Instructions ?Recorded ?Last Taken ?Type buspirone 30 mg tablet 15 mg PO BID anxiety 4 Unknown History tizanidine 4 mg tablet 4 mg PO TID muscle relaxer 0 04/28/23 Unknown History trazodone 100 mg tablet 100 mg PO QHS sleep 04/28/23 Unknown History venlafaxine 150 mg 150 mg PO QDAY mental health 04/28/23 Unknown History capsule,extended release 24 hr bupropion HCl 200 mg tablet,12 hr 200 mg PO DAILY [facility] 11/19/23 Unknown History sustained-release melatonin 5 mg capsule 5 mg PO QHS sleep 11/19/23 U nknown History levothyroxine 125 mcg tablet 125 mcg PO DAILY@0600 thy roid #0 11/23/23 Unknown Rx tabs hydroxyzine HCl 25 mg tablet 25 mg PO TID PRN PRN anxi ety 12/31/23 Unknown History mecobalamin (vitamin B12) 1,000 1,000 mcg PO QDAY ludivina min 12/31/23 Unknown History mcg chewable tablet (B12 Active) pantoprazole 40 mg tablet,delayed 40 mg PO Q12H reflux 12/31/23 Unknown History release (Protonix) potassium chloride 20 mEq 20 meq PO DAILY electrolyte 01/22/24 Unknown History tablet,extended release fexofenadine 180 mg tablet 180 mg PO DAILY allergies 0 03/10/24 Unknown History ([facility]) promethazine 12.5 mg tablet 12.5 mg PO BID PRN PRN Ext dwayne 03/10/24 Unknown History nausea rosuvastatin 5 mg tablet 5 mg PO QHS cholesterol 02/11 11/04 Unknown History ciprofloxacin HCl 250 mg tablet 250 mg PO BID #6 tabs 03/11/24 Unknown Rx haloperidol 1 mg tablet 1 mg PO TID #14 tabs 5 Unknown Rx scopolamine base 1 mg over 3 days 1 patch transdermal Q3D #4 ea 03/11/24 Unknown Rx transdermal patch verapamil 240 mg tablet,extended 240 mg PO DAILY #30 t abs 03/11/24 Unknown Rx release Allergy/AdvReac Type Severity Reaction Status Date / Time cefaclor (From Ceclor) Allergy Anaphylaxis Verified 03/20/24 15:46 chlorhexidine Allergy Hives Verified 03/20/24 15:46 codeine Allergy Anaphylaxis Verified 03/20/24 15:46 paroxetine (From Paxil) Allergy Anaphylaxis Verified 03/20/24 15:46 Penicillins Allergy Anaphylaxis Verified 03/20/24 15:46 Sulfa (Sulfonamide Allergy Anaphylaxis Verified 03/20/24 15:46 Antibiotics) magnesium sulfate AdvReac Severe Nausea/Vom/ Verified 03/20/24 15:46 Diarrhea Family History Mother Heart disease Father Heart disease Surgical History History of carpal tunnel release of both wrists History of exploratory laparotomy S/P TKR (total knee replacement) History of shoulder replacement History of hysterectomy History of cholecystectomy Hx of appendectomy Social History household members: none Smoking Status: Former smoker alcohol intake: never substance use type: does not use ROS ROS ED ROS Narrative Constitutional: No fever, no chills. HEENT: No sore throat. No neck pain. No loss of vision. No rhinorrhea. Cardiovascular: No chest pain. No palpitations. No pedal edema. Respiratory: No cough, no shortness of breath. Abdominal: Positive abdominal pain. Positive nausea and vomiting. Nausea began yesterday. Vomiting began today. Chronic diarrhea. Genitourinary: No dysuria. No hematuria. Musculoskeletal: No myalgias. No arthralgias. Neurologic: No headaches. Positive lightheadedness and dizziness. Psychiatric: No depression. No anxiety. EXAM Physical Exam Narrative Exam Narrative: Afebrile. Vital signs noted. Mild anxiety noted on examination. HEENT examination is grossly unremarkable, moist mucous membranes. Producing tears. Cardiovascular examination feels a regular rate and rhythm. Lungs are clear to auscultation bilaterally. The abdomen is soft with minimal diffuse tenderness to palpation, no guarding or rebound, positive bowel sounds. Neurological examination is nonfocal and nonlateralizing. Psychiatric examination does show mild anxiety and she is tearful on examination. Const Vital Signs: 03/20/24 15:44 03/20/24 18:12 Temperature 97.7 F L Temperature Source Temporal Pulse Rate 96 85 Respiratory Rate 20 H 16 Blood Pressure 148/86 H 160/99 H Blood Pressure Mean 106 119 Pulse Ox 100 98 Oxygen Delivery Method Room Air Room Air MDM MDM MDM Narrative Medical decision making narrative: Differential diagnosis includes but not limited to gastroenteritis versus colitis versus ischemic bowel versus pancreatitis. She may have dehydration or electrolyte imbalance as well from her chronic diarrhea. I reviewed her prior records. She does have a magnesium allergy but it causes nausea, vomiting, and diarrhea rather than anaphylaxis. We reviewed her laboratory work and she has normal white count of 6.3 with hemoglobin stable at 10.6, hematocrit 32.5, platelet count normal at 319. Electrolyte panel is significant for glucose of 91 with sodium 136, potassium low at 2.9, BUN of 2 and creatinine 0.98. I added a magnesium and it is also low at 1.4. Patient states she cannot take oral magnesium and does not think that she had IV magnesium previously. Lipase is 20. Hence I doubt pancreatit is. I reviewed the radiology report of the CT of the abdomen and pelvis which shows no acute process, no obstruction, no colonic thickening. Urinalysis is negative for ketones, negative for infection. I do not feel antibiotics are indicated. Patient states that she usually supplements potassium at home and takes 1 pill daily. She states he usually gets admitted until her electrolyte disturbance has resolved. I discussed the patient with Dr. Hunt for observation on [facility]Sur telemetry as potassium will be given initially. Disposition is assigned observation. Patient is in stable condition. History & Record Review Discussion w/independent historian: Patient Lab Data Attestation: I reviewed the patient's lab results. Labs: Laboratory Results - last 24 hr 03/20/24 03/20/24 16:52 17:13 WBC 6.3 RBC 3.59 L Hgb 10.6 L Hct 32.5 L MCV 90.5 MCH 29.5 MCHC 32.6 RDW Std Deviation 50.1 H RDW Coeff of Vicki 15.0 H Plt Count 319 MPV 10.0 Immature Gran % (Auto) 0.500 Neut % (Auto) 57.3 Lymph % (Auto) 24.4 [place] % (Auto) 15.1 H Eos % (Auto) 1.7 Baso % (Auto) 1.0 Absolute Neuts (auto) 3.6 Absolute Lymphs (auto) 1.54 Nucleated RBC % 0 Sodium 136 Potassium 2.9 L Chloride 105 Carbon Dioxide 21.0 Anion Gap 10 BUN 2 L Creatinine 0.98 Estim Creat Clear Calc 69.12 Est GFR (MDRD) Af Amer 73 Est GFR (MDRD) Non-Af 60 BUN/Creatinine Ratio 2.0 L Glucose 91 Calcium 8.5 Magnesium 1.4 L Total Bilirubin 0.50 AST 38 H ALT 31 Alkaline Phosphatase 118 H Total Protein 6.2 L Albumin 2.5 L Globulin 3.7 Albumin/Globulin Ratio 0.7 L Lipase 20 L Urine Color Yellow Urine Clarity Clear Urine pH 6.0 Ur Specific [place] 1.020 Urine Protein 15 H Urine Glucose (UA) Normal Urine Ketones Negative Urine Occult Blood Negative Urine Nitrite Negative Urine Bilirubin Negative Urine Urobilinogen Normal Ur Leukocyte Esterase Negative Urine RBC 0-5 SEEN Urine WBC 0-5 SEEN Ur Squamous Epith Cells 5-10 SEEN Urine Bacteria 0 SEEN Hyaline Casts 0-5 SEEN Urine Mucus 2+ Radiography Diagnostic Testing: Clinical Impression(s) from Imaging Studies Abdomen/Pelvis CT 03/20/24 16:38 IMPRESSION: 1. No acute abnormality of the abdomen and pelvis. 2. Mild fatty hypertrophy of the submucosal layer of the transverse colon, which can be seen in chronic inflammatory conditions or within the limits of normal. 3. Prior right hemicolectomy, cholecystectomy and hysterectomy. Reading Location: [facility] Discharge Plan Dx/Rx/DC Orders Clinical Impression: Diarrhea, Hypokalemia, Hypomagnesemia, Nausea and vomiting Disposition Disposition: Acute Care Hospital [facility]
--- NOTE | 2024-03-20 16:38 | CT_ITS ---
PROCEDURE: ABDOMEN/PELVIS W IV CONT ONLY REASON FOR EXAM: Nausea, vomiting and diarrhea TECHNIQUE: Abdomen and pelvis CT with intravenous contrast. Multiplanar reconstructions were performed. COMPARISON: March 10, 2024 FINDINGS: Lower chest: Unremarkable. Liver: Focal area of hypoattenuation adjacent to the falciform ligament is likely due to focal fatty infiltration. Biliary/gallbladder: Prior cholecystectomy. No biliary dilatation. Pancreas: Diffuse pancreatic atrophy. Spleen: Unremarkable. Adrenal glands: Unremarkable. Kidneys: 1.3 cm cyst in the interpolar region of the right kidney. No nephrolithiasis or hydronephrosis. Gastrointestinal/peritoneum: Postoperative changes of a right hemicolectomy.No dilated loops of bowel. There is mild fatty hypertrophy of the submucosal layer of the transverse colon. No free air or free fluid. Vascular: Unremarkable. Lymph nodes: No enlarged lymph nodes by CT size criteria. Pelvic organs: Prior hysterectomy. Bladder: Unremarkable. Bones: Chronic vertebral compression fracture at L2 with vertebroplasty cement present. Soft tissues: Tiny fat containing umbilical hernia measuring 1.7 cm. Midline surgical scar present. CT/Abdomen/Pelvis W IV Cont ONLY IMPRESSION: 1. No acute abnormality of the abdomen and pelvis. 2. Mild fatty hypertrophy of the submucosal layer of the transverse colon, whic h can be seen in chronic inflammatory conditions or within the limits of normal. 3. Prior right hemicolectomy, cholecystectomy and hysterectomy. Reading Location[facility]
[2024-03-20 16:54] VITALS: BMI 36.3
[2024-03-20] MEDS: Ondansetron 4 MG/2 ML Vial IV ×2 (16:57→22:46)
[2024-03-20] MEDS: 0.9% Normal Saline (1000mL) 1,000 ML 999 ML IV (16:58)
[2024-03-20 17:02] LABS: Absolute Lymphocyte Count 1.54 X10^3/uL (0.83-4.51); Absolute Neutrophil Count 3.6 X10^3/uL (2.0-7.7); Basophil# 0.06 X10^3/uL; Eosinophil# 0.11 X10^3/uL; Eosinophils% 1.7 % (0-5); Hematocrit 32.5 % (37-47); Hemoglobin 10.6 g/dL (12.0-15.0); Lymphocyte # 1.54 X10^3/ul (0.83-4.51); Lymphocyte % 24.4 % (19-41); Mean Corp Hgb Conc 32.6 g/dL (32-36); Mean Corpuscular Hgb 29.5 pg (27.0-32.0); Mean Corpuscular Volume 90.5 fL (81-99); Monocyte# 0.95 X10^3/uL; Monocyte% 15.1 % (0-10); NRBC Flagged by Analyzer 0 % (0-5); Neutrophil # 3.61 X10^3/uL (2.7-7.7); Neutrophil % 57.3 % (47-70); Platelet Count 319 K/mm3 (150-450); RBC Distribution Width SD 50.1 fl (35.1-43.9); Red Blood Count 3.59 M/mm3 (4.2-5.4); White Blood Count 6.3 K/mm3 (4.4-11.0)
[2024-03-20 17:21] LABS: ALB/GLOB Ratio 0.7 RATIO (0.9-2.4); AST(SGOT) 38 U/L (15-37); Alanine Aminotransfer ALT/SGPT 31 U/L (13-56); Albumin, Serum 2.5 g/dL (3.2-5.0); Alkaline Phosphatase 118 U/L (45-117); Anion Gap 10 (5-15); BUN 2 mg/dL (7-18); Calcium,Total 8.5 mg/dL (8.5-10.1); Chloride 105 mmol/L (98-107); Creatinine, Serum 0.98 mg/dL (0.55-1.02); EST Glomerular Filtration Rate 60 mL/min (>60); Est Glom Filt Rate - Afr Amer 73 mL/min (>60); Estimated Creatinine Clearance 69.12 ml/min; Globulin 3.7 g/dL (2.2-4.2); Glucose 91 mg/dL (74-106); Lipase 20 U/L (73-393); Potassium 2.9 mmol/L (3.5-5.1); Protein, Total 6.2 g/dL (6.4-8.2); Sodium Level 136 mmol/L (136-145)
[2024-03-20 17:25] LABS: Bacteria 0 SEEN /hpf (None Seen)
[2024-03-20 17:41] LABS: Magnesium 1.4 mg/dL (1.6-2.6)
[2024-03-20 17:45] LABS: Color, Urine Yellow (Yellow); Glucose, Dipstick Normal (Normal); Ketone-Dipstick Negative (Negative); Leukocyte Esterase-Dipstick Negative /ul (Negative); Nitrite-Dipstick Negative (Negative); Occult Blood-Urine Negative /ul (Negative); Protein-Dipstick 15 mg/dl (Negative); Urine Bilirubin Dipstick Negative (Negative); Urine Clarity Clear (Clear); Urine Urobilinogen Normal (Normal)
[2024-03-20] MEDS: Potassium Chloride Oral Tablet 20 MEQ 40 MEQ PO (18:08)
[2024-03-20 18:12] VITALS: BP 160/99; PULSE 85; RESP 16; O2SAT 98
[2024-03-20 18:12] LABS: Hyaline Cast 0-5 SEEN /lpf (0-5)
[2024-03-20 18:13] LABS: Red Blood Cells-Urine 0-5 SEEN /hpf (0-5); Squamous Epithelial Cells - UA 5-10 SEEN /hpf (5-10); White Blood Cells 0-5 SEEN /hpf (0-5)
[2024-03-20 18:14] LABS: Mucous, Urine 2+ /hpf (<or=2+)
--- NOTE | 2024-03-20 18:48 | ED.RN ---
Pt refusing to walk to restroom, this RN stated We are going to have to walk you to the bathroom before you go home. PT started crying stating Why cant I get admitted? This RN placed a purewick and stated we will see what the results say.
[2024-03-20 20:00] VITALS: BP 142/47; PULSE 106; RESP 20; TEMP 36.3; O2SAT 98
--- NOTE | 2024-03-20 20:05 | HP.PCM.HOS_ITS ---
HPI - General General Date of Admission: 03/20/24 Date of Service: 03/20/24 Chief Complaint: N/V/D HPI Narrative The patient is a 63 y/o F w/ PMHx: Hypothyroidism, Chronic Hyponatremia, Anxiety and Depression, GERD, HTN, HLD, Short gut syndrome following significant history of bowel ischemia with perforation requiring significant intervention, Obesity, CKD stage II per GFR trending, Chronic Hyponatremia, Bilateral ischial/buttock ulcer clusters and left hand skin tear following with Wound Care with last visit noted 03/17/24 with plan for recommended barrier cream, daily soap and water assessment, offloading with follow-up in 2 weeks who presents to the [facility] ED on 03/20/2024 with history of onset nausea, emesis and diffuse abdominal cramping with general fatigue malaise with 2-3 episodes of loose stools on day of presentation noting that she does have chronic diarrhea secondary to history of bowel resection with bowel ischemic history however this is worsened and given fatigue and malaise prompted ED evaluation be cautious. She notes difficulty with potassium as well as magnesium oral toleration. She notes generally not feeling well prompting eventual evaluation. Workup in the ED included T97.7 Temporally, heart rate 96, BP 140/86, respirate 20, 100% room air with most recent repeat vitals heart rate 85, BP 1 6599, respiratory rate 16, 98% room air, CBC with WC 6.3, hemoglobin 10.6, MCV 90.5, platelet 319 without shift, CMP with potassium 2.9, magnesium 1.4, BUN/creatinine 2/0.98, GFR 60, hepatic profile with AST/LT 38/31, alk phos 118, urinalysis with evidence of dehydration with gravity mildly elevated 1.020 otherwise unremarkable, CT abdomen and pelvis with no acute intra-abdominal findings with mild fatty hypertrophy at the submucosal layer of the transverse colon seen in chronic inflammatory conditions or within limits of normal, evidence of prior right hemicolectomy, cholecystectomy and hysterectomy. In the ED patient ministered potassium 40 mill equivalent p.o. x 1, potassium 40 mill equivalents IV initiated, Zofran 4 mg IV x 1 and 1 L normal saline. [facility] Medical History Nausea and vomiting Anemia No natural teeth Wears glasses Depression Anxiety Walker as ambulation aid Arthritis Low iron Excessive bleeding Restless legs Heartburn Shortness of breath on exertion Former smoker History of echocardiogram Hypoalbuminemia Obesity (BMI 30-39.9) Suspected inflammatory bowel disease Elevated troponin Heart failure Gastroenteritis Diarrhea Small bowel perforation Small bowel ischemia Trigger finger, left ring finger Trigger finger, right ring finger Right carpal tunnel syndrome Bilateral carpal tunnel syndrome Hypothyroidism Anxiety and depression High cholesterol Hypertension Home Medications ?Medication ?Instructions ?Recorded ?Last Taken ?Type buspirone 30 mg tablet 15 mg PO BID anxiety 4 Unknown History tizanidine 4 mg tablet 4 mg PO TID muscle relaxer 0 04/28/23 Unknown History trazodone 100 mg tablet 100 mg PO QHS sleep 04/28/23 Unknown History venlafaxine 150 mg 150 mg PO QDAY mental health 04/28/23 Unknown History capsule,extended release 24 hr bupropion HCl 200 mg tablet,12 hr 200 mg PO DAILY [facility] 11/19/23 Unknown History sustained-release melatonin 5 mg capsule 5 mg PO QHS sleep 11/19/23 U nknown History levothyroxine 125 mcg tablet 125 mcg PO DAILY@0600 thy roid #0 11/23/23 Unknown Rx tabs hydroxyzine HCl 25 mg tablet 25 mg PO TID PRN PRN anxi ety 12/31/23 Unknown History mecobalamin (vitamin B12) 1,000 1,000 mcg PO QDAY ludivina min 12/31/23 Unknown History mcg chewable tablet (B12 Active) pantoprazole 40 mg tablet,delayed 40 mg PO DAILY reflu x 12/31/23 Unknown History release (Protonix) potassium chloride 20 mEq 20 meq PO BID electrolyte Unknown History tablet,extended release fexofenadine 180 mg tablet 180 mg PO DAILY allergies 0 03/10/24 Unknown History ([facility]) rosuvastatin 5 mg tablet 5 mg PO QHS cholesterol 02/11 11/04 Unknown History verapamil 240 mg tablet,extended 240 mg PO DAILY #30 t abs 03/11/24 Unknown Rx release Allergy/AdvReac Type Severity Reaction Status Date / Time cefaclor (From Ceclor) Allergy Anaphylaxis Verified 03/20/24 15:46 chlorhexidine Allergy Hives Verified 03/20/24 15:46 codeine Allergy Anaphylaxis Verified 03/20/24 15:46 paroxetine (From Paxil) Allergy Anaphylaxis Verified 03/20/24 15:46 Penicillins Allergy Anaphylaxis Verified 03/20/24 15:46 Sulfa (Sulfonamide Allergy Anaphylaxis Verified 03/20/24 15:46 Antibiotics) magnesium sulfate AdvReac Severe Nausea/Vom/ Verified 03/20/24 15:46 Diarrhea Family History Mother Heart disease Father Heart disease Surgical History History of carpal tunnel release of both wrists History of exploratory laparotomy S/P TKR (total knee replacement) History of shoulder replacement History of hysterectomy History of cholecystectomy Hx of appendectomy Social History household members: none Smoking Status: Former smoker alcohol intake: never substance use type: does not use ROS ROS Narrative Admission Review of Systems: CONSTITUTIONAL: No weight loss, fever, chills, + weakness or fatigue. HEENT: + Chronic issues with lightheadedness/dizziness. Eyes: No visual loss, blurred vision, double vision or yellow sclerae. Ears, Nose, Throat: No hearing loss, sneezing, congestion, runny nose or sore throat. SKIN: No rash or itching, lesions except + BL buttock/ischial blister ulcers, very staged ecchymoses with history of falls. CARDIOVASCULAR: +Chronic edema. No chest pain, chest pressure or chest discomfort, palpitations, orthopnea, syncopal events. RESPIRATORY: No shortness of breath, cough or sputum, wheezing, hemoptysis. GASTROINTESTINAL: + Acute on chronic N/V, diarrhea, abdominal cramping, decreased appetite/anorexia. No melena, BRBPR. GENITOURINARY: No dysuria, frequency, urgency or retention. NEUROLOGICAL: + History of frequent falls, chronic issues with lightheadedness/dizziness. No headache, syncope, paralysis, ataxia, numbness or tingling in the extremities, focal weakness, change in bowel or bladder control, seizure. MUSCULOSKELETAL: + muscle, back pain, joint pain or stiffness. HEMATOLOGIC: + Chronic anemia, easy bleeding/bruising. LYMPHATICS: No enlarged nodes. No history of splenectomy. PSYCHIATRIC: + History of anxiety and depression. ENDOCRINOLOGIC: No reports of sweating, cold or heat intolerance. No polyuria or polydipsia. ALLERGIES: + History of anaphylaxis, hives. Vital Signs Vital Signs Vital Signs: 03/20/24 15:44 03/20/24 18:12 Temperature 97.7 F L Temperature Source Temporal Pulse Rate 96 85 Respiratory Rate 20 H 16 Blood Pressure 148/86 H 160/99 H Blood Pressure Mean 106 119 Pulse Ox 100 98 Oxygen Delivery Method Room Air Room Air Weight Weight: 225 lb 8.526 oz Body Mass Index (BMI) 36.3 Physical Exam Narrative Physical Examination: General: Awake, alert, oriented x 3 and cooperative, laying in the bed, fatigued, complaining of burning to her arm, IV potassium currently being administered and discussed that would rate would be decreased. Skin: Normal color, normal turgor, no icterus, no cyanosis except occasional stage ecchymoses, significant bilateral lower extremity venous stasis skin changes. HEENT: AT/NC, EOMI, PERRLA, mildly to moderately dry MM, no carotid bruits or JVD noted. Lungs: Diminished, greater bases, appropriate effort, no rales, ronchi or wheezing. Heart: Regular rate and rhythm; no gallop, rub audible. Abdomen: Soft, obese, NTTP with no rebound or guarding, nondistended, hyperactive BS, no HSM. Extremities: No cyanosis, no clubbing, see skin, chronic bilateral lower extremity, stable. Neurological: Patient awake, alert, oriented as noted as noted, cognitive function intact; pupils equally reactive to light and accommodation, cranial nerves grossly normal, moving all 4 extremities, no focal deficits, strength moderately to severely globally decreased secondary to acute presentation. Psychiatric: Affect appears fatigued, mood somewhat labile with discussions regarding admission as she notes she is tired of frequently having to present to the hospital, does have underlying anxiety depression. Results Lab / Micro Data 03/20/24 16:52 03/20/24 16:52 Labs: Laboratory Results - last 24 hr 03/20/24 16:52: WBC 6.3, RBC 3.59 L, Hgb 10.6 L, Hct 32.5 L, MCV 90.5, MCH 29.5, MCHC 32.6, RDW Std Deviation 50.1 H, RDW Coeff of Vicki 15.0 H, Plt Count 319, MPV 10.0, Immature Gran % (Auto) 0.500, Neut % (Auto) 57.3, Lymph % (Auto) 24.4, M krista % (Auto) 15.1 H, Eos % (Auto) 1.7, Baso % (Auto) 1.0, Absolute Neuts (auto) 3.6, Absolute Lymphs (auto) 1.54, Nucleated RBC % 0, Sodium 136, Potassium 2.9 L , Chloride 105, Carbon Dioxide 21.0, Anion Gap 10, BUN 2 L, Creatinine 0.98, Estim Creat Clear Calc 69.12, Est GFR (MDRD) Af Amer 73, Est GFR (MDRD) Non-Af 60, BUN/Creatinine Ratio 2.0 L, Glucose 91, Calcium 8.5, Magnesium 1.4 L, Total Bilirubin 0.50, AST 38 H, ALT 31, Alkaline Phosphatase 118 H, Total Protein 6.2 L, Albumin 2.5 L, Globulin 3.7, Albumin/Globulin Ratio 0.7 L, Lipase 20 L 03/20/24 17:13: Urine Color Yellow, Urine Clarity Clear, Urine pH 6.0, Ur Specific [place] 1.020, Urine Protein 15 H, Urine Glucose (UA) Normal, Urine Ketones Negative, Urine Occult Blood Negative, Urine Nitrite Negative, Urine Bilirubin Negative, Urine Urobilinogen Normal, Ur Leukocyte Esterase Negative, Urine RBC 0-5 SEEN, Urine WBC 0-5 SEEN, Ur Squamous Epith Cells 5-10 SEEN, Urine Bacteria 0 SEEN, Hyaline Casts 0-5 SEEN, Urine Mucus 2+ Imaging Radiology Impression Abdomen/Pelvis CT 03/20/24 16:38 IMPRESSION: 1. No acute abnormality of the abdomen and pelvis. 2. Mild fatty hypertrophy of the submucosal layer of the transverse colon, which can be seen in chronic inflammatory conditions or within the limits of normal. 3. Prior right hemicolectomy, cholecystectomy and hysterectomy. Reading Location: [facility] Assessment & Plan Assessment/Plan (1) Nausea and vomiting: PLAN: Plan The patient is a 63 y/o F w/ PMHx: Hypothyroidism, Chronic Hyponatremia, Anxiety and Depression, GERD, HTN, HLD, Short gut syndrome following significant history of bowel ischemia with perforation requiring significant intervention, Obesity, CKD stage II per GFR trending, Chronic Hyponatremia, Bilateral ischial/buttock ulcer clusters and left hand skin tear following with Wound Care with last visit noted 03/17/24 with plan for recommended barrier cream, daily soap and water assessment, offloading with follow-up in 2 weeks who presents to the [facility] ED on 03/20/2024 with history of onset nausea, emesis and diffuse abdominal cramping with general fatigue malaise with 2-3 episodes of loose stools on day of presentation noting that she does have chronic diarrhea secondary to history of bowel resection with bowel ischemic history but given fatigue and malaise. #1. N/V/D, unclear etiology, potentially electrolyte deficiency related complicated by underlying short gut versus acute gastroenteritis: Admit medical surgical floor, will maintain on hydration, to be cautious will obtain c diff, stool cx, procalcitonin requested, will maintain on clears on IV PPI, not start antibiotics at this time given unclear source pending stool studies as may be viral gastroenteritis. Anti-emetics, pain regimen PRN. #2. Chronic Kidney Disease Stage II per GFR trending, unclear subtype: Admission BUN/Cr 2/0.98, GFR currently 60 but is vastly, baseline renal function 0.8-1.1, repeat BMP in AM. #3. Hypokalemia: Admission K+ 2.9 w/ supplementation ordered per ED, magnesium also low at 1.4 with supplementation also being administered, will repeat BMP in AM. #4. Hypomagnesemia: Magnesium 1.4, 2 g IV initiated, repeat magnesium level in AM. #5. Chronic normocytic anemia: Admission hemoglobin 10.6, MCV 90.5, baseline hemoglobin 9-10 range, will continue to trend CBC. #6. Hypertension: Continue home verapamil regimen, hold if necessary,. IV hydralazine. #7. Hyperlipidemia: Continue statin therapy. #8. Hypothyroidism: Continue patient home levothyroxine regimen. #9. Anxiety and depression: We will continue patient home venlafaxine, trazodone, hydroxyzine as well as Haldol and BuSpar in addition to bupropion but going to verify that she is actually on all these medications prior to initiating. #10. Obesity: Weight loss and lifestyle changes encouraged. #11. GERD: Will temporally place on IV PPI. #12. Bilateral ischial/buttock ulcer clusters: Encourage continued daily evaluation, offloading, wound RN consulted, positional changes encouraged. #13. DVT prophylaxis: Lovenox. #13. CODE status: Patient CHRISTINE is her daughter and living will is currently in place. Discussed CODE status at length including difference between FULL code, DNR-CCA and DNR-CC status. Following discussions about the differences in these status, requested DNR-CCA with allowance of short-term intubation. Charges/Coding Visit Charges Inpatient E&M: 48431 Init Hosp L3
[2024-03-20] MEDS: Potassium Chloride 10mEq/100mL 10 MEQ/100 ML IV.SOLN. 100 MEQ IV BOLUS ×2 (20:11→22:06)
[2024-03-20 21:22] VITALS: BMI 35.4
[2024-03-20 22:00] LABS: Phosphorus 3.1 mg/dL (2.5-4.9)
[2024-03-20] MEDS: 0.9% Normal Saline (1000mL) 1,000 ML 100 ML IV (22:14)
[2024-03-20] MEDS: Pantoprazole Sodium 40 MG in 0.9% Normal Saline (100mL MB+) 100 ML 330 MG IV (22:18)
[2024-03-20] MEDS: busPIRone 15 MG TABLET PO (22:22)
[2024-03-20] MEDS: Potassium Chloride Oral Tablet 20 MEQ PO (22:22)
[2024-03-20] MEDS: tiZANidine HCl 2 MG Tablet 4 MG PO (22:23)
[2024-03-20] MEDS: Menthol/Lanolin/Calamine/Znox 113 GM Tube 1 APPLIC TOPICAL (22:23)
[2024-03-20] MEDS: Atorvastatin Calcium 10 MG Tablet PO (22:23)
[2024-03-20] MEDS: traZODone 100 MG Tablet PO (22:23)
[2024-03-20] MEDS: MELATONIN 10 MG TABLET 5 MG PO (22:23)
[2024-03-20 22:34] LABS: Procalcitonin 0.07 ng/mL (0.00-0.09)
[2024-03-20] MEDS: Magnesium Sulfate 2 GM in Dextrose 5%-Water (100mL Bag) 100 ML IV (22:48)
[2024-03-21] VITALS (17 sets, daily range): BP systolic 71–94; BP diastolic 35–45; PULSE 50–68; RESP 16–18; TEMP 36.2–36.4; O2SAT 95–100; BMI 35.4
[2024-03-21] MEDS: Potassium Chloride 10mEq/100mL 10 MEQ/100 ML IV.SOLN. 100 MEQ IV BOLUS ×2 (00:12→01:51)
[2024-03-21] MEDS: 0.9% Normal Saline (1000mL) 1,000 ML 999 ML IV ×2 (04:30→23:04)
--- NOTE | 2024-03-21 04:30 | PCM.HOSP.N ---
Hospitalist Note Patient with BP 76/44, poor urine output. Will administer 1L NS bolus and reassess.
[2024-03-21] MEDS: Levothyroxine 125 MCG Tablet PO (05:45)
[2024-03-21] MEDS: tiZANidine HCl 2 MG Tablet 4 MG PO ×2 (05:45→14:47)
--- NOTE | 2024-03-21 07:31 | PCM.PN.HOSP ---
Reason for Visit Reason for Visit: Diagnoses Nausea with vomiting, unspecified (03/20/24) Subjective Subjective Patient is a 63-year-old lady resident of [facility] brought to the emergency department with nausea vomiting and diarrhea as well as generalized weakness. Patient was found to have significant electrolyte abnormalities including hypokalemia and hypomagnesemia admitted to a monitored bed for further management Objective Data Objective Data Vital Signs: Vital Signs Temp Pulse Resp BP Pulse Ox O2 Del Method 97.2 F L 54 L 16 94/44 L 95 Room Air 03/21/24 06:04 03/21/24 07:17 03/21/24 06:04 03/21/24 06:43 03/21/24 06:04 03/21/24 06:04 Oxygen Delivery Method Room Air Weight: 96.615 kg Body Mass Index (BMI) 35.4 Intake & Output: Intake and Output for Last 24 Hours 03/19/24 03/20/24 03/21/24 23:59 23:59 23:59 Intake Total 1310 / 1460 2080.67 / 2080.67 Balance 1310 / 1460 2080.67 / 2080.67 Lab / Micro Data 03/20/24 16:52 03/20/24 16:52 Labs: Laboratory Results - last 24 hr 03/20/24 16:52: WBC 6.3, RBC 3.59 L, Hgb 10.6 L, Hct 32.5 L, MCV 90.5, MCH 29.5, MCHC 32.6, RDW Std Deviation 50.1 H, RDW Coeff of Vicki 15.0 H, Plt Count 319, MPV 10.0, Immature Gran % (Auto) 0.500, Neut % (Auto) 57.3, Lymph % (Auto) 24.4, Bee % (Auto) 15.1 H, Eos % (Auto) 1.7, Baso % (Auto) 1.0, Absolute Neuts (auto) 3.6, Absolute Lymphs (auto) 1.54, Nucleated RBC % 0, Sodium 136, Potassium 2.9 L, Chloride 105, Carbon Dioxide 21.0, Anion Gap 10, BUN 2 L, Creatinine 0.98, Estim Creat Clear Calc 69.12, Est GFR (MDRD) Af Amer 73, Est GFR (MDRD) Non-Af 60, BUN/Creatinine Ratio 2.0 L, Glucose 91, Calcium 8.5, Phosphorus 3.1, Magnesium 1.4 L, Total Bilirubin 0.50, AST 38 H, ALT 31, Alkaline Phosphatase 118 H, Total Protein 6.2 L, Albumin 2.5 L, Globulin 3.7, Albumin/Globulin Ratio 0.7 L, Lipase 20 L 03/20/24 17:13: Urine Color Yellow, Urine Clarity Clear, Urine pH 6.0, Ur Specific [place] 1.020, Urine Protein 15 H, Urine Glucose (UA) Normal, Urine Ketones Negative, Urine Occult Blood Negative, Urine Nitrite Negative, Urine Bilirubin Negative, Urine Urobilinogen Normal, Ur Leukocyte Esterase Negative, Urine RBC 0-5 SEEN, Urine WBC 0-5 SEEN, Ur Squamous Epith Cells 5-10 SEEN, Urine Bacteria 0 SEEN, Hyaline Casts 0-5 SEEN, Urine Mucus 2+ 03/20/24 22:02: Procalcitonin 0.07 Radiography Diagnostic Testing: Radiology Impression Abdomen/Pelvis CT 03/20/24 16:38 IMPRESSION: 1. No acute abnormality of the abdomen and pelvis. 2. Mild fatty hypertrophy of the submucosal layer of the transverse colon, which can be seen in chronic inflammatory conditions or within the limits of normal. 3. Prior right hemicolectomy, cholecystectomy and hysterectomy. Reading Location: [facility] Physical Exam Narrative GENERAL: cooperative HEENT: Atraumatic; normocephalic EYES; Anicteric, Normal Conjunctiva NECK; supple, normal thyroid, RESPIRATORY: Diminished to auscultation CARDIOVASCULAR: Regular S1 S2, GI: soft, normoactive bowel sounds, : No Renal angle tenderness; EXTREMITIES: No edema, no clubbing, MUSCULOSKELETAL: no muscle wasting NEURO: Awake; no lateralizing signs. SKIN: No Rash PSYCH; Flat affect Assessment & Plan Assessment/Plan (1) Nausea and vomiting: PLAN: Plan Patient is a 63-year-old lady resident of extended care facility brought to the emergency department with nausea vomiting and diarrhea as well as generalized weakness. Patient was found to have significant electrolyte abnormalities including hypokalemia and hypomagnesemia admitted to a monitored bed for further management 1. Acute gastroenteritis ? Admitted to regular nursing floor, Enteric pathogen panel stool sample sent. Symptomatic treatment with IV fluid antinausea medication and pain meds subsequently initiated 2. Dehydration ? Secondary to above patient resuscitated with IV fluid response to therapy being monitored with daily BMPs 3. Hypokalemia ? Given potassium replacement response to therapy monitor with repeat K levels in a.m. 4. Hypomagnesemia ? Corrected per protocol repeat labs ordered for follow-up 5. Hypothyroidism ? Patient is on levothyroxine home dose continued 6. GERD On PPI 7. Class II obesity with BMI 35.4 ? Complicating care weight loss advised 8. Essential hypertension ? Antihypertensives held on admission given relatively low blood pressure which has since resolved 9. Dyslipidemia ?Patient is on statin therapy, continued at home dose 10. Depression with anxiety ? Patient is on probation buspirone as well as venlafaxine continue 11. Anemia ? Secondary to chronic disorder monitoring H&H and transfuse if patient becomes symptomatic or hemoglobin falls below 7 12. Physical deconditioning ? Requested for PT OT eval and social studies department chair to assist with discharge planning 13. Unstageable bilateral ischial/buttock decubitus ulcers present on admission ? Consult placed to wound care nurse 14. History of t partial colectomy involving the right colon ? On 09/30/2023 on account of ischemic colitis with bowel perforation. Procedure was performed by Dr. Stephenson. 15. DVT prophylaxis ? Subcu Lovenox Charges/Coding Visit Charges Inpatient E&M: 02139 [facility] Hosp L3
[2024-03-21] MEDS: 0.9% Saline Lock 10 ML Syringe IV ×2 (08:57→17:42)
[2024-03-21] MEDS: Pantoprazole Sodium 40 MG in 0.9% Normal Saline (100mL MB+) 100 ML 330 MG IV ×2 (08:57→21:45)
[2024-03-21] MEDS: Potassium Chloride Oral Tablet 20 MEQ 40 MEQ PO (08:58)
[2024-03-21] MEDS: Loratadine 10 MG Tablet PO (08:59)
[2024-03-21] MEDS: buPROPion (SR) 100 MG TABLET.SA 200 MG PO (08:59)
[2024-03-21] MEDS: Venlafaxine XR 150 MG Capsule PO (09:00)
[2024-03-21] MEDS: Enoxaparin 40 MG/0.4 ML Syringe SC (09:00)
[2024-03-21] MEDS: busPIRone 15 MG TABLET PO ×2 (09:00→21:49)
[2024-03-21 09:03] LABS: Absolute Lymphocyte Count 1.22 X10^3/uL (0.83-4.51); Absolute Neutrophil Count 2.6 X10^3/uL (2.0-7.7); Basophil# 0.06 X10^3/uL; Basophil% 1.3 % (0-1); Eosinophil# 0.17 X10^3/uL; Eosinophils% 3.6 % (0-5); Hematocrit 25.1 % (37-47); Lymphocyte # 1.22 X10^3/ul (0.83-4.51); Lymphocyte % 26.1 % (19-41); Mean Corp Hgb Conc 31.9 g/dL (32-36); Mean Corpuscular Hgb 29.3 pg (27.0-32.0); Mean Corpuscular Volume 91.9 fL (81-99); Monocyte# 0.65 X10^3/uL; Monocyte% 13.9 % (0-10); NRBC Flagged by Analyzer 0 % (0-5); Neutrophil # 2.56 X10^3/uL (2.7-7.7); Neutrophil % 54.9 % (47-70); Platelet Count 229 K/mm3 (150-450); RBC Distribution Width CV 15.4 % (11.6-14.6); RBC Distribution Width SD 51.8 fl (35.1-43.9); Red Blood Count 2.73 M/mm3 (4.2-5.4); White Blood Count 4.7 K/mm3 (4.4-11.0)
[2024-03-21 09:20] LABS: ALB/GLOB Ratio 0.6 RATIO (0.9-2.4); AST(SGOT) 39 U/L (15-37); Alanine Aminotransfer ALT/SGPT 25 U/L (13-56); Albumin, Serum 1.8 g/dL (3.2-5.0); Alkaline Phosphatase 89 U/L (45-117); Anion Gap 10 (5-15); BUN 2 mg/dL (7-18); BUN/Creat Ratio 2.5 RATIO (10-20); Calcium,Total 7.8 mg/dL (8.5-10.1); Chloride 111 mmol/L (98-107); Creatinine, Serum 0.79 mg/dL (0.55-1.02); EST Glomerular Filtration Rate 78 mL/min (>60); Est Glom Filt Rate - Afr Amer 94 mL/min (>60); Estimated Creatinine Clearance 80.62 ml/min; Globulin 2.8 g/dL (2.2-4.2); Glucose 89 mg/dL (74-106); Potassium 4.3 mmol/L (3.5-5.1); Protein, Total 4.6 g/dL (6.4-8.2); Sodium Level 138 mmol/L (136-145)
[2024-03-21] MEDS: Magnesium Sulfate 2 GM in Dextrose 5%-Water (100mL Bag) 100 ML IV (10:20)
[2024-03-21] MEDS: Menthol/Lanolin/Calamine/Znox 113 GM Tube 1 APPLIC TOPICAL ×4 (10:21→21:49)
[2024-03-21] MEDS: Potassium Chloride Oral Tablet 20 MEQ PO ×3 (10:21→21:49)
[2024-03-21] MEDS: oxyCODONE 5 MG Tablet PO (10:27)
[2024-03-21] MEDS: 0.9% Normal Saline (500mL Bag) 500 ML IV ×2 (15:42→17:42)
[2024-03-21] MEDS: Atorvastatin Calcium 10 MG Tablet PO (21:49)
[2024-03-21] MEDS: traZODone 100 MG Tablet PO (21:49)
[2024-03-21] MEDS: MELATONIN 10 MG TABLET 5 MG PO (21:50)
--- NOTE | 2024-03-21 22:44 | PN.HOSP_ITS ---
Hospitalist Note Patient with poor intake, GI ongoing symptoms, recurrent decreased BP. Will given additional IVF bolus and will trial midodrine. Encourage oral intake. Continue antiemetic regimen. Enteric/cdiff negative. Has loperamide and encouraged staff physical therapist to utilize.
[2024-03-21] MEDS: Midodrine HCl 5 MG Tablet 10 MG PO (23:05)
[2024-03-21] MEDS: Loperamide 2 MG Capsule PO (23:05)
[2024-03-22] VITALS (13 sets, daily range): BP systolic 82–111; BP diastolic 40–48; PULSE 56–72; RESP 16–18; TEMP 36.4–37.2; O2SAT 97–98; BMI 37.2
[2024-03-22] MEDS: Levothyroxine 125 MCG Tablet PO (06:11)
[2024-03-22] MEDS: tiZANidine HCl 2 MG Tablet 4 MG PO (06:16)
[2024-03-22 06:48] LABS: Absolute Lymphocyte Count 0.84 X10^3/uL (0.83-4.51); Absolute Neutrophil Count 3.8 X10^3/uL (2.0-7.7); Basophil# 0.05 X10^3/uL; Basophil% 0.9 % (0-1); Eosinophil# 0.17 X10^3/uL; Hematocrit 25.2 % (37-47); Lymphocyte # 0.84 X10^3/ul (0.83-4.51); Lymphocyte % 14.7 % (19-41); Mean Corp Hgb Conc 31.7 g/dL (32-36); Mean Corpuscular Hgb 29.3 pg (27.0-32.0); Mean Corpuscular Volume 92.3 fL (81-99); Mean Platelet Vol. 10.3 fl (6.2-12.0); Monocyte# 0.79 X10^3/uL; Monocyte% 13.8 % (0-10); NRBC Flagged by Analyzer 0 % (0-5); Neutrophil # 3.84 X10^3/uL (2.7-7.7); Neutrophil % 67.2 % (47-70); Platelet Count 227 K/mm3 (150-450); RBC Distribution Width CV 15.8 % (11.6-14.6); RBC Distribution Width SD 53.4 fl (35.1-43.9); Red Blood Count 2.73 M/mm3 (4.2-5.4); White Blood Count 5.7 K/mm3 (4.4-11.0)
[2024-03-22 07:22] LABS: AST(SGOT) 34 U/L (15-37); Alanine Aminotransfer ALT/SGPT 26 U/L (13-56); Albumin, Serum 1.8 g/dL (3.2-5.0); Alkaline Phosphatase 96 U/L (45-117); Anion Gap 6 (5-15); BUN 2 mg/dL (7-18); BUN/Creat Ratio 2.6 RATIO (10-20); Bilirubin, Direct 0.27 mg/dL (0.00-0.30); Calcium,Total 7.7 mg/dL (8.5-10.1); Chloride 110 mmol/L (98-107); Creatinine, Serum 0.76 mg/dL (0.55-1.02); EST Glomerular Filtration Rate 81 mL/min (>60); Est Glom Filt Rate - Afr Amer 98 mL/min (>60); Glucose 85 mg/dL (74-106); Magnesium 2.2 mg/dL (1.6-2.6); Phosphorus 2.5 mg/dL (2.5-4.9); Potassium 4.8 mmol/L (3.5-5.1); Protein, Total 4.8 g/dL (6.4-8.2); Sodium Level 133 mmol/L (136-145)
[2024-03-22 08:31] LABS: Ferritin 332 ng/mL (8-252); Iron 45 ug/dL (50-170); Iron Binding Capacity,Total 153 ug/dL (250-450); PERCENT IRON SATURATION 29.4 % (15.0-55.0)
[2024-03-22] MEDS: Potassium Chloride Oral Tablet 20 MEQ PO ×4 (09:38→21:05)
[2024-03-22] MEDS: Midodrine HCl 5 MG Tablet 10 MG PO ×3 (09:39→16:48)
[2024-03-22] MEDS: Venlafaxine XR 150 MG Capsule PO (09:40)
[2024-03-22] MEDS: busPIRone 15 MG TABLET PO ×2 (09:40→21:04)
[2024-03-22] MEDS: Enoxaparin 40 MG/0.4 ML Syringe SC (09:40)
[2024-03-22] MEDS: Menthol/Lanolin/Calamine/Znox 113 GM Tube 1 APPLIC TOPICAL ×4 (09:40→21:04)
[2024-03-22] MEDS: buPROPion (SR) 100 MG TABLET.SA 200 MG PO (09:40)
[2024-03-22] MEDS: Loratadine 10 MG Tablet PO (09:40)
[2024-03-22] MEDS: 0.9% Saline Lock 10 ML Syringe IV (09:41)
[2024-03-22] MEDS: Pantoprazole Sodium 40 MG in 0.9% Normal Saline (100mL MB+) 100 ML 330 MG IV ×2 (10:05→21:04)
--- NOTE | 2024-03-22 12:00 | CASEMGMT ---
SHWETHA GALLARDO Readmission Note Previous Admission: 03/10/24-03/12/24 Diagnosis: JENNIFER, hypokalemia DC Disposition: Home with [facility] Current Admission: 03/21/24 Current Diagnosis: N/V/D, electrolyte disturbances On previous admission, pt c/o weakness and fell walking to bathroom. Pt had EGD and recommended to f/u with Dr. Reeder in 2wks. Pt was dc'd on antibiotic for UTI also. Pt was seen in the ER on 03/16/24 for a fall with recommendation of tylenol and ice to head. Pt seen [facility] on 03/17/24 for wound to bilat ischial/buttock ulcer- Recommended barrier cream. Pt had L hand skin tear from fall prior day with recommendation to use atb ointment and cover. SHWETHA GALLARDO into pt room, pt lying in bed in no distress with nurse at bedside. Pt states she [facility] has been seeing her and she has an aide 8 hours a day on Friday. Pt has not made an appt with Dr. Reeder yet and is agreeable to this being done for her and she will then schedule [employer] for transport to the appt. Pt states she has been taking her medications as ordered. She states she does the barrier cream to her buttock wound and her hand skin tear is now closed. Pt states that she thinks her C and aide is enough for her at home. She states she just needs to know her limits. She states since her surgery, she overdoes it. Discussed multiple admissions. Pt states I am fine, really. Pt would like to resume her [facility], she denies need for a list of other options of agencies. Pt denies any further needs at this time. DC Plan: [facility] resuming SN, PT, OT and [facility].
--- NOTE | 2024-03-22 12:30 | PCM.PN.HOSP ---
Subjective Subjective No issues overnight, still feels little bit drowsy Objective Data Objective Data Vital Signs: Vital Signs Temp Pulse Resp BP Pulse Ox O2 Del Method 98.8 F 56 L 18 86/44 L 98 Room Air 03/22/24 11:51 03/22/24 11:51 03/22/24 11:51 03/22/24 11:51 03/22/24 11:51 03/22/24 11:51 Oxygen Delivery Method Room Air Weight: 223 lb 5.252 oz Body Mass Index (BMI) 37.2 Intake & Output: Intake and Output for Last 24 Hours 03/21/24 03/22/24 03/23/24 03:59 03:59 03:59 Intake Total 1764 / 1764 7750.67 / 7750.67 260 / 260 Output Total 475 / 475 180 / 180 Balance 1764 / 1764 7275.67 / 7275.67 80 / 80 Medical Nutrition Assessment Dietitian: Malnutrition Criteria Met Start: 03/21/24 15:44 Freq: Status: Active Protocol: Document 03/21/24 15:44 CHARISMA (Rec: 03/21/24 15:44 [facility] [id number]) Nutrition Malnutrition Evidence of Yes Malnutrition Exists Malnutrition (severe Chronic ): Evidenced By Suboptimal Energy Intake (Severe),Weight Loss (Severe) Clinical Problem Chronic Disease or Condition Related Malnutrition Etiology related to physiological changes limiting oral intakes Signs/Symptoms as evidenced by significant weight loss of 9.0% or 21lb x 2 months since 01/24/24 weight of 233lb and decreased appetite and oral intakes x 5 months meeting less than or equal to 50% of estimated nutrient needs. Status Active Problem Recommendation Dietitian Recommend Regular - General diet upon advancement as Recommendations/ tolerated to provide liberalization and promote oral Changes intakes. Pt is not interested in any ONS at this time. Encouraged oral intakes, especially protein, to aid in wound healing. Will continue to follow, monitor oral intakes and modify nutrition interventions as needed. Lab / Micro Data 03/22/24 06:07 03/22/24 06:07 Labs: Laboratory Results - last 24 hr 03/22/24 06:07: WBC 5.7, RBC 2.73 L, Hgb 8.0 L, Hct 25.2 L, MCV 92.3, MCH 29.3, MCHC 31.7 L, RDW Std Deviation 53.4 H, RDW Coeff of Vicki 15.8 H, Plt Count 227, MPV 10.3, Immature Gran % (Auto) 0.400, Neut % (Auto) 67.2, Lymph % (Auto) 14.7 L, [place] % (Auto) 13.8 H, Eos % (Auto) 3.0, Baso % (Auto) 0.9, Absolute Neuts (auto) 3.8, Absolute Lymphs (auto) 0.84, Nucleated RBC % 0, Sodium 133 L, Potassium 4.8, Chloride 110 H, Carbon Dioxide 17.0 L, Anion Gap 6, BUN 2 L, Creatinine 0.76, Estim Creat Clear Calc 82.70, Est GFR (MDRD) Af Amer 98, Est GFR (MDRD) Non-Af 81, BUN/Creatinine Ratio 2.6 L, Glucose 85, Calcium 7.7 L, Phosphorus 2.5, Magnesium 2.2, Iron 45 L, TIBC 153 L, Iron Saturation 29.4, Ferritin 332 H, Total Bilirubin 0.40, Direct Bilirubin 0.27, AST 34, ALT 26, Alkaline Phosphatase 96, Total Protein 4.8 L, Albumin 1.8 L, Globulin 3.0 Micro: Microbiology 03/21/24 12:45 Stool Enteric Bacteriology - Final 03/21/24 12:45 Stool Clostridioides difficile (PCR) - Final Physical Exam Narrative General: Drowsy, Oriented x3, Cooperative, No apparent distress HEENT: Atraumatic, PERRLA, EOMI, Normocephalic Oral: Moist Mucosa Neck: Supple, No JVD Lungs: Diminished, Normal air movement, No rhonchi, No wheeze, No rales Cardiovascular: Regular rate, Regular Rhythm, Normal S1, Normal S2, No murmurs Abdomen: Soft, Non Tender, Non-Distended, No Hepato-splenomegaly Extremities: Edema, Capillary Refill Less than 3 Seconds Skin: No rashes, No breakdown Musculoskeletal: No Tenderness to Palpation of Joints or Extremities Neurological: No focal neurological deficits, Motor Exam 5/5 strength throughout, Sensory exam intact to light touch and pain Psych/Mental Status: Flat Assessment & Plan Assessment/Plan (1) Nausea and vomiting: PLAN: Plan 1. Acute gastroenteritis with dehydration and electrolyte derangements ? Admitted to regular nursing floor, Enteric pathogen panel stool sample sent. Symptomatic treatment with IV fluid antinausea medication and pain meds subsequently initiated ? Renal function is at baseline ? Continue with IV fluid ? Blood pressures are low, will hold blood pressure medications and continue with midodrine ? Electrolytes have been replaced and normalized 5. Hypothyroidism ? Patient is on levothyroxine home dose continued 6. GERD On PPI 8. Essential hypertension ? Antihypertensives held on admission given relatively low blood pressure which has since resolved ? Continue with midodrine 9. Dyslipidemia ?Patient is on statin therapy, continued at home dose 10. Depression with anxiety ? Patient is on buspirone as well as venlafaxine continue 11. Anemia ? Secondary to chronic disorder monitoring H&H and transfuse if patient becomes symptomatic or hemoglobin falls below 7 ? Iron studies are unremarkable today 12. Physical deconditioning ? Requested for PT OT eval and secondary social studies teacher to assist with discharge planning 13. Unstageable bilateral ischial/buttock decubitus ulcers present on admission ? Consult placed to wound care nurse 14. History of t partial colectomy involving the right colon ? On 09/30/2023 on account of ischemic colitis with bowel perforation. Procedure was performed by Dr. Stephenson. DVT: Lovenox Charges/Coding Visit Charges Inpatient E&M: 66191 Subs Hosp L2
--- NOTE | 2024-03-22 13:35 | WOUNDNOTE ---
wound photo: buttocks
--- NOTE | 2024-03-22 16:00 | CHAPLAIN ---
Type of Pastoral Visit ___ Initial Visit ___ Follow-up Visit ___ On-call Visit ___ General Patient Visit ___ Spiritual Assessment ___ Family Conference ___ Bereavement ___ Rapid Response ___ Code Blue ___ Other (describe below) Pastoral Care Referral From ___ Patient ___ Family ___ Nurse ___ Physician ___ Java Programmer ___ Neuro Ophthalmologist ___ Other (describe below) Sacrament/Intervention ___ Active listening ___ Anointing ___ Orthodoxy ___ Bereavement ___ Communion ___ Nalini exploration ___ ___ Life review ___ Prayer ___ Reconciliation ___ Sacrament of Sick ___ Supportive presence ___ Wedding ___ Other (describe below) Pastoral Comments paitient is sleeping and was not awakened at this time
[2024-03-22] MEDS: Atorvastatin Calcium 10 MG Tablet PO (21:05)
[2024-03-22] MEDS: traZODone 100 MG Tablet PO (21:05)
[2024-03-22] MEDS: MELATONIN 10 MG TABLET 5 MG PO (21:05)
[2024-03-23] VITALS (10 sets, daily range): BP systolic 89–144; BP diastolic 37–64; PULSE 58–92; RESP 14–20; TEMP 36.4–37.1; O2SAT 96–97; BMI 38.1
[2024-03-23] MEDS: oxyCODONE 5 MG Tablet PO (02:25)
[2024-03-23] MEDS: 0.9% Saline Lock 10 ML Syringe IV (02:26)
[2024-03-23] MEDS: Levothyroxine 125 MCG Tablet PO (04:47)
[2024-03-23] MEDS: Midodrine HCl 5 MG Tablet 10 MG PO ×3 (04:47→16:15)
[2024-03-23 06:36] LABS: Absolute Neutrophil Count 3.4 X10^3/uL (2.0-7.7); Basophil# 0.04 X10^3/uL; Basophil% 0.7 % (0-1); Eosinophil# 0.11 X10^3/uL; Hematocrit 27.7 % (37-47); Hemoglobin 8.5 g/dL (12.0-15.0); Lymphocyte % 21.4 % (19-41); Mean Corp Hgb Conc 30.7 g/dL (32-36); Mean Corpuscular Hgb 29.1 pg (27.0-32.0); Mean Corpuscular Volume 94.9 fL (81-99); Mean Platelet Vol. 10.4 fl (6.2-12.0); Monocyte# 0.83 X10^3/uL; Monocyte% 14.8 % (0-10); NRBC Flagged by Analyzer 0 % (0-5); Neutrophil % 60.7 % (47-70); Platelet Count 226 K/mm3 (150-450); RBC Distribution Width CV 15.6 % (11.6-14.6); Red Blood Count 2.92 M/mm3 (4.2-5.4); White Blood Count 5.6 K/mm3 (4.4-11.0)
[2024-03-23 07:00] LABS: Anion Gap 6 (5-15); BUN 2 mg/dL (7-18); BUN/Creat Ratio 2.5 RATIO (10-20); Chloride 110 mmol/L (98-107); Creatinine, Serum 0.79 mg/dL (0.55-1.02); EST Glomerular Filtration Rate 78 mL/min (>60); Est Glom Filt Rate - Afr Amer 94 mL/min (>60); Glucose 86 mg/dL (74-106); Potassium 4.3 mmol/L (3.5-5.1); Sodium Level 135 mmol/L (136-145)
[2024-03-23 07:07] LABS: Phosphorus 2.7 mg/dL (2.5-4.9)
--- NOTE | 2024-03-23 09:36 | CASEMGMT ---
Social Work- SW received a message from Rocio Cruz, [facility] , who reports that pt receives 14 meals every other week, has aides Tuesdays and for four hours, and has a medical alert. Rocio requests discharge paperwork be faxed to her at : [phone]. GUANAKO called Rocio at [phone] to collaborate and left a voicemail. GUANAKO remains available to follow. ZACKARY [place]
[2024-03-23] MEDS: Enoxaparin 40 MG/0.4 ML Syringe SC (10:37)
[2024-03-23] MEDS: buPROPion (SR) 100 MG TABLET.SA 200 MG PO (10:37)
[2024-03-23] MEDS: Potassium Chloride Oral Tablet 20 MEQ PO ×2 (10:38→16:18)
[2024-03-23] MEDS: Venlafaxine XR 150 MG Capsule PO (10:39)
[2024-03-23] MEDS: Loratadine 10 MG Tablet PO (10:39)
[2024-03-23] MEDS: busPIRone 15 MG TABLET PO (10:40)
[2024-03-23] MEDS: Menthol/Lanolin/Calamine/Znox 113 GM Tube 1 APPLIC TOPICAL ×2 (10:40→16:15)
--- NOTE | 2024-03-23 11:29 | PCM.PN.HOSP ---
Subjective Subjective Still feels fatigue but blood pressure and hemoglobin is better today than it was yesterday Objective Data Objective Data Vital Signs: Vital Signs Temp Pulse Resp BP Pulse Ox O2 Del Method 97.9 F 76 14 121/45 H 96 Room Air 03/23/24 10:19 03/23/24 10:19 03/23/24 10:19 03/23/24 10:19 03/23/24 10:19 03/23/24 10:19 Oxygen Delivery Method Room Air Weight: 228 lb 13.437 oz Body Mass Index (BMI) 38.1 Intake & Output: Intake and Output for Last 24 Hours 03/22/24 03/23/24 03/24/24 03:59 03:59 03:59 Intake Total 7750.67 / 7750.67 370 / 370 Output Total 475 / 475 1280 / 1280 Balance 7275.67 / 7275.67 -910 / -910 Medical Nutrition Assessment Dietitian: Malnutrition Criteria Met Start: 03/21/24 15:44 Freq: Status: Active Protocol: Document 03/21/24 15:44 CHARISMA (Rec: 03/21/24 15:44 [facility] [id number]) Nutrition Malnutrition Evidence of Yes Malnutrition Exists Malnutrition (severe Chronic ): Evidenced By Suboptimal Energy Intake (Severe),Weight Loss (Severe) Clinical Problem Chronic Disease or Condition Related Malnutrition Etiology related to physiological changes limiting oral intakes Signs/Symptoms as evidenced by significant weight loss of 9.0% or 21lb x 2 months since 01/24/24 weight of 233lb and decreased appetite and oral intakes x 5 months meeting less than or equal to 50% of estimated nutrient needs. Status Active Problem Recommendation Dietitian Recommend Regular - General diet upon advancement as Recommendations/ tolerated to provide liberalization and promote oral Changes intakes. Pt is not interested in any ONS at this time. Encouraged oral intakes, especially protein, to aid in wound healing. Will continue to follow, monitor oral intakes and modify nutrition interventions as needed. Lab / Micro Data 03/23/24 06:17 03/23/24 06:17 Labs: Laboratory Results - last 24 hr 03/23/24 06:17: WBC 5.6, RBC 2.92 L, Hgb 8.5 L, Hct 27.7 L, MCV 94.9, MCH 29.1, MCHC 30.7 L, RDW Std Deviation 55.0 H, RDW Coeff of Vicki 15.6 H, Plt Count 226, MPV 10.4, Immature Gran % (Auto) 0.400, Neut % (Auto) 60.7, Lymph % (Auto) 21.4, [place] % (Auto) 14.8 H, Eos % (Auto) 2.0, Baso % (Auto) 0.7, Absolute Neuts (auto) 3.4, Absolute Lymphs (auto) 1.20, Nucleated RBC % 0, Sodium 135 L, Potassium 4.3, Chloride 110 H, Carbon Dioxide 19.0 L, Anion Gap 6, BUN 2 L, Creatinine 0.79, Estim Creat Clear Calc 83.80, Est GFR (MDRD) Af Amer 94, Est GFR (MDRD) Non-Af 78, BUN/Creatinine Ratio 2.5 L, Glucose 86, Calcium 8.0 L, Phosphorus 2.7, Magnesium 2.0 Micro: Microbiology 03/21/24 12:45 Stool Enteric Bacteriology - Final 03/21/24 12:45 Stool Clostridioides difficile (PCR) - Final Physical Exam Narrative General: Alert, Oriented x3, Cooperative, No apparent distress HEENT: Atraumatic, PERRLA, EOMI, Normocephalic Oral: Moist Mucosa Neck: Supple, No JVD Lungs: Diminished, Normal air movement, No rhonchi, No wheeze, No rales Cardiovascular: Regular rate, Regular Rhythm, Normal S1, Normal S2, No murmurs Abdomen: Soft, Non Tender, Non-Distended, No Hepato-splenomegaly Extremities: Edema, Capillary Refill Less than 3 Seconds Skin: No rashes, No breakdown Musculoskeletal: No Tenderness to Palpation of Joints or Extremities Neurological: No focal neurological deficits, Motor Exam 5/5 strength throughout, Sensory exam intact to light touch and pain Psych/Mental Status: Flat Assessment & Plan Assessment/Plan (1) Nausea and vomiting: PLAN: Plan 1. Acute gastroenteritis with dehydration and electrolyte derangements ? Admitted to regular nursing floor, Enteric pathogen panel stool sample sent. Symptomatic treatment with IV fluid antinausea medication and pain meds subsequently initiated ? Renal function is at baseline ? Continue with IV fluid ? Blood pressures are low, will hold blood pressure medications and continue with midodrine ? Electrolytes have been replaced and normalized 5. Hypothyroidism ? Patient is on levothyroxine home dose continued 6. GERD ? Stable ?On PPI 8. Essential hypertension ? Antihypertensives held on admission given relatively low blood pressure which has since resolved ? Continue with midodrine 9. Dyslipidemia ?Patient is on statin therapy, continued at home dose 10. Depression with anxiety ? Patient is on buspirone as well as venlafaxine continue 11. Anemia ? Secondary to chronic disorder monitoring H&H and transfuse if patient becomes symptomatic or hemoglobin falls below 7 ? Iron studies are unremarkable today 12. Physical deconditioning ? Requested for PT OT eval and elementary school social worker to assist with discharge planning 13. Unstageable bilateral ischial/buttock decubitus ulcers present on admission ? Consult placed to wound care nurse 14. History of t partial colectomy involving the right colon ? On 09/30/2023 on account of ischemic colitis with bowel perforation. Procedure was performed by Dr. Stephenson. DVT: Lovejocelynx Charges/Coding Visit Charges Inpatient E&M: 85918 Subs Hosp L2
--- NOTE | 2024-03-23 11:46 | NURSING ---
This RN is aware of Vital Signs obtained this morning by Idalia Jean
--- NOTE | 2024-03-23 14:46 | CHAPLAIN ---
Type of Pastoral Visit ___ Initial Visit ___ Follow-up Visit ___ On-call Visit ___ General Patient Visit ___ Spiritual Assessment ___ Family Conference ___ Bereavement ___ Rapid Response ___ Code Blue ___ Other (describe below) Pastoral Care Referral From ___ Patient ___ Family ___ Nurse ___ Physician ___ Criminal Justice Teacher ___ Camera Person ___ Other (describe below) Sacrament/Intervention ___ Active listening ___ Anointing ___ Judaism ___ Bereavement ___ Communion ___ Nalini exploration ___ ___ Life review ___ Prayer ___ Reconciliation ___ Sacrament of Sick ___ Supportive presence ___ Wedding ___ Other (describe below) Pastoral Comments patient was asleep and was not disturbed; left a calling card
[2024-03-23] MEDS: tiZANidine HCl 2 MG Tablet 4 MG PO (16:15)
[2024-03-23] MEDS: Pantoprazole Sodium 40 MG Tablet PO (16:18)
[2024-03-24] VITALS (11 sets, daily range): BP systolic 99–122; BP diastolic 38–55; PULSE 56–74; RESP 18–22; TEMP 36.5–37; O2SAT 94–99; BMI 39.0
[2024-03-24] MEDS: MELATONIN 10 MG TABLET 5 MG PO ×2 (00:24→22:12)
[2024-03-24] MEDS: busPIRone 15 MG TABLET PO ×3 (00:25→22:12)
[2024-03-24] MEDS: traZODone 100 MG Tablet PO ×2 (00:25→22:13)
[2024-03-24] MEDS: Menthol/Lanolin/Calamine/Znox 113 GM Tube 1 APPLIC TOPICAL ×5 (00:25→22:14)
[2024-03-24] MEDS: Atorvastatin Calcium 10 MG Tablet PO ×2 (00:25→22:12)
[2024-03-24] MEDS: tiZANidine HCl 2 MG Tablet 4 MG PO ×4 (00:25→22:12)
[2024-03-24] MEDS: Levothyroxine 125 MCG Tablet PO (06:08)
[2024-03-24 06:41] LABS: Absolute Lymphocyte Count 1.32 X10^3/uL (0.83-4.51); Absolute Neutrophil Count 3.5 X10^3/uL (2.0-7.7); Basophil# 0.03 X10^3/uL; Basophil% 0.5 % (0-1); Eosinophil# 0.13 X10^3/uL; Eosinophils% 2.2 % (0-5); Hematocrit 26.5 % (37-47); Hemoglobin 8.4 g/dL (12.0-15.0); Lymphocyte # 1.32 X10^3/ul (0.83-4.51); Lymphocyte % 22.3 % (19-41); Mean Corp Hgb Conc 31.7 g/dL (32-36); Mean Corpuscular Hgb 29.4 pg (27.0-32.0); Mean Corpuscular Volume 92.7 fL (81-99); Mean Platelet Vol. 11.1 fl (6.2-12.0); Monocyte# 0.87 X10^3/uL; Monocyte% 14.7 % (0-10); NRBC Flagged by Analyzer 0.3 % (0-5); Neutrophil # 3.54 X10^3/uL (2.7-7.7); Platelet Count 226 K/mm3 (150-450); RBC Distribution Width CV 15.6 % (11.6-14.6); RBC Distribution Width SD 53.6 fl (35.1-43.9); Red Blood Count 2.86 M/mm3 (4.2-5.4); White Blood Count 5.9 K/mm3 (4.4-11.0)
[2024-03-24 07:13] LABS: Anion Gap 6 (5-15); BUN 2 mg/dL (7-18); Calcium,Total 8.3 mg/dL (8.5-10.1); Chloride 105 mmol/L (98-107); Creatinine, Serum 0.67 mg/dL (0.55-1.02); EST Glomerular Filtration Rate 94 mL/min (>60); Est Glom Filt Rate - Afr Amer 114 mL/min (>60); Estimated Creatinine Clearance 84.91 ml/min; Glucose 101 mg/dL (74-106); Potassium 4.3 mmol/L (3.5-5.1); Sodium Level 132 mmol/L (136-145)
--- NOTE | 2024-03-24 09:41 | PN.HOSP_ITS ---
Subjective Subjective No issues overnight, still fatigued Objective Data Objective Data Vital Signs: Vital Signs Temp Pulse Resp BP Pulse Ox O2 Del Method 97.7 F L 62 22 H 122/45 H 94 Room Air 03/24/24 07:45 03/24/24 07:45 03/24/24 07:45 03/24/24 07:45 03/24/24 07:45 03/24/24 07:45 Oxygen Delivery Method Room Air Weight: 234 lb 5.622 oz Body Mass Index (BMI) 39.0 Intake & Output: Intake and Output for Last 24 Hours 03/23/24 03/24/24 03/25/24 03:59 03:59 03:59 Intake Total 370 / 370 720 / 720 Output Total 1280 / 1280 1950 / 1950 200 / 200 Balance -910 / -910 -1230 / -1230 -200 / -200 Medical Nutrition Assessment Dietitian: Malnutrition Criteria Met Start: 03/21/24 15:44 Freq: Status: Active Protocol: Document 03/21/24 15:44 TARI (Rec: 03/21/24 15:44 TARI [id number]) Nutrition Malnutrition Evidence of Yes Malnutrition Exists Malnutrition (severe Chronic ): Evidenced By Suboptimal Energy Intake (Severe),Weight Loss (Severe) Clinical Problem Chronic Disease or Condition Related Malnutrition Etiology related to physiological changes limiting oral intakes Signs/Symptoms as evidenced by significant weight loss of 9.0% or 21lb x 2 months since 01/24/24 weight of 233lb and decreased appetite and oral intakes x 5 months meeting less than or equal to 50% of estimated nutrient needs. Status Active Problem Recommendation Dietitian Recommend Regular - General diet upon advancement as Recommendations/ tolerated to provide liberalization and promote oral Changes intakes. Pt is not interested in any ONS at this time. Encouraged oral intakes, especially protein, to aid in wound healing. Will continue to follow, monitor oral intakes and modify nutrition interventions as needed. Lab / Micro Data 03/24/24 06:07 03/24/24 06:07 Labs: Laboratory Results - last 24 hr 03/24/24 06:07: WBC 5.9, RBC 2.86 L, Hgb 8.4 L, Hct 26.5 L, MCV 92.7, MCH 29.4, MCHC 31.7 L, RDW Std Deviation 53.6 H, RDW Coeff of Vicki 15.6 H, Plt Count 226, MPV 11.1, Immature Gran % (Auto) 0.300, Neut % (Auto) 60.0, Lymph % (Auto) 22.3, [place] % (Auto) 14.7 H, Eos % (Auto) 2.2, Baso % (Auto) 0.5, Absolute Neuts (auto) 3.5, Absolute Lymphs (auto) 1.32, Nucleated RBC % 0.3, Sodium 132 L, Potassium 4.3, Chloride 105, Carbon Dioxide 20.0 L, Anion Gap 6, BUN 2 L, Creatinine 0.67, Estim Creat Clear Calc 84.91, Est GFR (MDRD) Af Amer 114, Est GFR (MDRD) Non-Af 94, BUN/Creatinine Ratio 3.0 L, Glucose 101, Calcium 8.3 L Micro: Microbiology 03/21/24 12:45 Stool Enteric Bacteriology - Final 03/21/24 12:45 Stool Clostridioides difficile (PCR) - Final Physical Exam Narrative General: Alert, Oriented x3, Cooperative, No apparent distress HEENT: Atraumatic, PERRLA, EOMI, Normocephalic Oral: Moist Mucosa Neck: Supple, No JVD Lungs: Diminished, Normal air movement, No rhonchi, No wheeze, No rales Cardiovascular: Regular rate, Regular Rhythm, Normal S1, Normal S2, No murmurs Abdomen: Soft, Non Tender, Non-Distended, No Hepato-splenomegaly Extremities: Edema, Capillary Refill Less than 3 Seconds Skin: No rashes, No breakdown Musculoskeletal: No Tenderness to Palpation of Joints or Extremities Neurological: No focal neurological deficits, Motor Exam 5/5 strength throughout, Sensory exam intact to light touch and pain Psych/Mental Status: Flat Assessment & Plan Assessment/Plan (1) Nausea and vomiting: PLAN: Plan 1. Acute gastroenteritis with dehydration and electrolyte derangements ?Enteric pathogen panel is negative as is C. difficile ? Renal function is at baseline ?IV fluids have been completed, she does feel little bit overloaded and she used to be both on Lasix and Aldactone, may need to start low-dose Lasix while continuing her midodrine ? Blood pressures are low, will hold blood pressure medications and continue with midodrine ? Electrolytes have been replaced and normalized 2. Hypothyroidism ? Patient is on levothyroxine home dose continued 3. GERD ? Stable ?On PPI 4. Essential hypertension ? Antihypertensives held on admission given relatively low blood pressure which has since resolved ? May need to reinstitute some low-dose Lasix, continue to hold her verapamil ? Continue with midodrine 5. Dyslipidemia ?Patient is on statin therapy, continued at home dose 6. Depression with anxiety ? Patient is on buspirone as well as venlafaxine continue 7. Anemia ? Secondary to chronic disorder monitoring H&H and transfuse if patient becomes symptomatic or hemoglobin falls below 7 ? Iron studies are unremarkable today 8. Physical deconditioning ? Requested for PT OT eval and oncology social worker to assist with discharge planning 9. Unstageable bilateral ischial/buttock decubitus ulcers present on admission ? Consult placed to wound care nurse 9. History of t partial colectomy involving the right colon ? On 09/30/2023 on account of ischemic colitis with bowel perforation. Procedure was performed by Dr. Stephenson. DVT: Lovenox Charges/Coding Visit Charges Inpatient E&M: 58951 Subs Hosp L2
[2024-03-24] MEDS: Midodrine HCl 5 MG Tablet 10 MG PO ×3 (09:58→17:24)
[2024-03-24] MEDS: Loratadine 10 MG Tablet PO (09:59)
[2024-03-24] MEDS: buPROPion (SR) 100 MG TABLET.SA 200 MG PO (09:59)
[2024-03-24] MEDS: Potassium Chloride Oral Tablet 20 MEQ PO ×2 (09:59→17:25)
[2024-03-24] MEDS: Enoxaparin 40 MG/0.4 ML Syringe SC (09:59)
[2024-03-24] MEDS: Venlafaxine XR 150 MG Capsule PO (09:59)
[2024-03-24] MEDS: Furosemide 20 MG Tablet PO (10:03)
[2024-03-24] MEDS: Pantoprazole Sodium 40 MG Tablet PO (10:04)
--- NOTE | 2024-03-24 14:36 | CASEMGMT ---
No OT recommended, updated MARCOS order for HHC for SN, PT and GRIP.
--- NOTE | 2024-03-24 15:50 | CASEMGMT ---
Social Work- SW received a call from [facility], who reports concerns that pt has been having anxiety and panic attacks. SW met with pt to discuss. SW introduced self and role. Pt pleasant and agreeable. Pt reports that she has four kids, ages 59-36, nine grand kids ages 32-1, and one great grandson who is 1 year of age. Pt reports that she has good family support from her kids and grand kids as well as other family. Pt reports that she came to hospital for multiple falls in which she only has 2 seconds warning before her legs give out. Pt reports that since at the hospital, her blood pressure has been low, which she feels may be the seo associate to her falls. Pt reports that she is going to use her points from insurance to get a finger pulse ox and blood pressure cuff. Pt reports that she would like to increase her aide hours through [facility] as well. Pt denies any anxiety or panic attacks at the hospital or at home. Pt denies feeling short of breath, like she is spinning or dizzy, having sweaty palms, hot in the face, etc. Pt declined any need for mental health resources at this time. SW remains available to follow and encouraged pt to let staff know if she has any concerns with anxiety in the future. ZACKARY Hills
--- NOTE | 2024-03-24 16:07 | NURSING ---
All documentation by student nurses Adenike Leo and Ifeoma Knox reviewed by nursing department chairperson Gill MANRIQUEZN, RN.
[2024-03-25 01:28] VITALS: BP 119/58; PULSE 62; RESP 18; TEMP 37.1; O2SAT 95
[2024-03-25 04:59] VITALS: PULSE 65
[2024-03-25 05:40] VITALS: BP 114/42; PULSE 64; RESP 18; TEMP 36.9; O2SAT 97
[2024-03-25] MEDS: tiZANidine HCl 2 MG Tablet 4 MG PO ×2 (05:44→15:33)
[2024-03-25] MEDS: Levothyroxine 125 MCG Tablet PO (05:44)
[2024-03-25 05:47] VITALS: BMI 39.0
[2024-03-25 06:57] LABS: Absolute Lymphocyte Count 1.03 X10^3/uL (0.83-4.51); Absolute Neutrophil Count 2.9 X10^3/uL (2.0-7.7); Basophil# 0.03 X10^3/uL; Basophil% 0.6 % (0-1); Eosinophil# 0.16 X10^3/uL; Eosinophils% 3.2 % (0-5); Hemoglobin 8.7 g/dL (12.0-15.0); Lymphocyte # 1.03 X10^3/ul (0.83-4.51); Lymphocyte % 20.6 % (19-41); Mean Corp Hgb Conc 32.2 g/dL (32-36); Mean Corpuscular Hgb 29.7 pg (27.0-32.0); Mean Corpuscular Volume 92.2 fL (81-99); Mean Platelet Vol. 11.5 fl (6.2-12.0); Monocyte# 0.87 X10^3/uL; Monocyte% 17.4 % (0-10); NRBC Flagged by Analyzer 0 % (0-5); Neutrophil # 2.87 X10^3/uL (2.7-7.7); Neutrophil % 57.6 % (47-70); Platelet Count 205 K/mm3 (150-450); RBC Distribution Width CV 15.3 % (11.6-14.6); RBC Distribution Width SD 51.8 fl (35.1-43.9); Red Blood Count 2.93 M/mm3 (4.2-5.4)
[2024-03-25 07:39] VITALS: BP 140/68; PULSE 62; RESP 16; TEMP 37.4; O2SAT 96
[2024-03-25 07:45] LABS: Anion Gap 9 (5-15); BUN 2 mg/dL (7-18); BUN/Creat Ratio 2.8 RATIO (10-20); Calcium,Total 8.6 mg/dL (8.5-10.1); Chloride 101 mmol/L (98-107); Creatinine, Serum 0.72 mg/dL (0.55-1.02); EST Glomerular Filtration Rate 86 mL/min (>60); Est Glom Filt Rate - Afr Amer 104 mL/min (>60); Estimated Creatinine Clearance 84.91 ml/min; Glucose 116 mg/dL (74-106); Potassium 3.9 mmol/L (3.5-5.1); Sodium Level 132 mmol/L (136-145)
[2024-03-25] MEDS: Potassium Chloride Oral Tablet 20 MEQ PO (07:52)
[2024-03-25] MEDS: Midodrine HCl 5 MG Tablet 10 MG PO ×2 (07:52→10:59)
[2024-03-25] MEDS: busPIRone 15 MG TABLET PO (10:57)
[2024-03-25] MEDS: Loratadine 10 MG Tablet PO (10:57)
[2024-03-25] MEDS: Enoxaparin 40 MG/0.4 ML Syringe SC (10:58)
[2024-03-25] MEDS: Furosemide 20 MG Tablet PO (10:58)
[2024-03-25] MEDS: Venlafaxine XR 150 MG Capsule PO (10:58)
[2024-03-25] MEDS: Pantoprazole Sodium 40 MG Tablet PO (10:59)
[2024-03-25] MEDS: buPROPion (SR) 100 MG TABLET.SA 200 MG PO (10:59)
[2024-03-25] MEDS: Menthol/Lanolin/Calamine/Znox 113 GM Tube 1 APPLIC TOPICAL (11:00)
[2024-03-25] MEDS: oxyCODONE 5 MG Tablet PO (11:02)
--- NOTE | 2024-03-25 11:45 | DCINST_ITS ---
Discharge Instructions Diet Discharge Diet: Low fat / Low cholesterol and 6 Cup Fluid Restriction DC O2, CPAP, BIPAP needs Home O2 Discharge instructions: No Dressing / Incision Discharge Activity: Return to Normal Activity Dressing / Incision Call your doctor if you observe: Fever of 101 or Higher, Shortness of breath, Dizziness, Fainting spells, Swelling in the ankles, Chest pain and Increased palpitations (irregular heartbeat) Follow Up Care Test Results: Test results from this visit will be discussed in further detail at your follow- up appointment, if applicable. Discharge Plan Admission Admit Date/Time: 03/21/24 11:46 Attending Provider: Zia Cornejo Primary Care Provider: Chaparro Mejia Consulting Providers: Kassie Hunt; Christoph Echeverria Instructions Additional Instructions / Restrictions: Follow-up with your PCP in 3 to 5 days to monitor your electrolytes, renal function and your blood pressure. I did start you on midodrine which increases your blood pressure and I do recommend holding your verapamil. Given your history of having too much fluid on you, I did restart your Lasix at a low dose of 20 mg daily. Discharge Orders/Prescriptions Prescriptions: New furosemide 20 mg Tablet 20 mg PO DAILY 30 Days Qty: 30 0RF midodrine 10 mg tablet 10 mg PO TIDCM 15 Days Qty: 45 0RF Continued venlafaxine 150 mg capsule,extended release 24hr 150 mg PO QDAY buspirone 30 mg tablet 15 mg PO BID trazodone 100 mg tablet 100 mg PO QHS tizanidine 4 mg tablet 4 mg PO TID pantoprazole [Protonix] 40 mg tablet,delayed release (DR/EC) 40 mg PO DAILY hydroxyzine HCl 25 mg tablet 25 mg PO TID PRN PRN (Reason: anxiety) mecobalamin (vitamin B12) [B12 Active] 1,000 mcg tablet,chewable 1,000 mcg PO QDAY bupropion HCl 200 mg tablet sustained-release 12 hr 200 mg PO DAILY melatonin 5 mg capsule 5 mg PO QHS levothyroxine 125 mcg Tablet 125 mcg PO DAILY@0600 Qty: 0 0RF rosuvastatin 5 mg tablet 5 mg PO QHS fexofenadine [[place] Allergy] 180 mg tablet 180 mg PO DAILY potassium chloride 20 mEq tablet extended release 20 meq PO BID calcium carbonate [Tums] 200 mg calcium (500 mg) tablet,chewable 400 mg PO Q4H PRN (Reason: heartburn) Held verapamil 240 mg Tablet Extended Release 240 mg PO DAILY Qty: 30 0RF Hold Instructions: Resume on 04/08/24. Referrals / Follow Up: Chaparro Mejia MD [Primary Care Provider] - Within 1 Week Disposition Disposition (needs filled in before D/C Order can be placed): Home, Self Care
--- NOTE | 2024-03-25 12:34 | CASEMGMT ---
SHWETHA GALLARDO NOTE: Discharge order is in. Call placed to [facility] and left re: same. Obinna NASH RN CM
--- NOTE | 2024-03-25 13:28 | CASEMGMT ---
Addendum entered by Benita Sahni 03/25/24 15:43: Per Aguila, meds have been delivered to pt's room. Addendum entered by Benita Sahni 03/25/24 15:14: Call placed to Cesar in the pharmacy. He states will get medications ready and have them delivered to pt's room. Per [facility], pt was able to reach [id number] and she scheduled transport home, pick-up will be any time from now until 5 PM. Addendum entered by Benita Sahni 03/25/24 15:07: Rocio from [facility] called this RN PAULINA back. She states they were @ lunch and are not having phone issues. Made aware [facility] retail will need to call them to have Rx's transferred. SHWETHA GALLARDO attempted to call [facility] again while Rocio still on the line and still getting a busy signal. [facility] retail pharmacy not able to call [facility]. Rocio states will cancel the Rx's @ [facility]. SHWETHA GALALRDO notified Dr Cornejo of need for new Rx's to be sent to [facility] retail pharmacy. Addendum entered by Benita Sahni 03/25/24 14:49: Pt made aware Dr Cornejo states he will still be discharging home today. Pt states, That's fine. She states would like meds delivered to her room from [facility] pharmacy. Call placed to Cesar in the pharmacy. He states he has been unable to reach [facility] pharmacy to have medications transferred, as it keeps ringing busy. SHWETHA GALLARDO attempted as well and also get a busy signal. Call placed to [facility]. They will go to the pharmacy and ask them to call this RN PAULINA back. Addendum entered by Benita Sahni 03/25/24 14:38: Per Ebony, PT, she worked w/pt today and states she feels pt is safe to discharge home today, stating she was able to get up and ambulate on her own w/use of walker, SBA. SHWETHA GALLARDO back to room. Pt sitting up in chair. Discussed therapy and how she did. She states Well they tell me I did okay, but I don't know. I'm so afraid of falling. Pt states she feels like she needs to walk more/gain more strength and does not feel safe to discharge home today but that she would be okay to discharge tomorrow. Dr Cornejo made aware of above. He states pt will be discharged home today. Original Note: SHWETHA GALLARDO NOTE: Discharge order is in. RN CM to room. Pt sitting up in chair in room. Pt made aware dc order is in. Pt then stated, I don't know if I'm strong enough to go home today. My legs are still so weak. SHWETHA GALLARDO spoke w/JOSE Rome, who states she and another KEYBOARD INSTRUMENT REPAIRER assisted pt up to [facility] and pt had wanted to walk around the bed to the chair, but she c/o her legs being so weak, so they used a W/C to take her from [facility] around the bed to the recliner chair in her room. SHWETHA GALLARDO spoke w/therapy who states will have recreation therapy director come work w/pt today to evaluate for safety/determine if pt safe to discharge home alone today. Pt made aware Rx's have been sent to [facility]'s. She states she would like to get them from [facility] pharmacy instead. Call placed to the pharmacy and they were made aware to have Rx's transferred to [facility]. Pt also states she does not have a ride home today, if she would end up discharging home today. SHWETHA GALLARDO informed her [id number] does same-day transports for hospital discharges. Pt made aware appts have been made w/Dr Mejia (03/29 @ 3:40 PM) and also Dr Reeder (03/30 @ 3 PM). She was made aware these would be on her d/c instructions and she also placed the appts in her phone at this time. She states she will call [id number] and arrange for transportation for these appts. Obinna NASH RN, CM
[2024-03-25 14:44] VITALS: BP 122/80; PULSE 62; RESP 20; TEMP 37.1; O2SAT 98
--- NOTE | 2024-03-25 14:53 | CASEMGMT ---
Addendum entered by Thalia Chacon 03/25/24 16:57: GUANAKO called [id number] to verify miner pick time. GUANAKO received notice that pt ride is waiting at the main entrance. GUANAKO notified bedside nurse who reports that pt was taken to main entrance 15 minutes ago by aides. secretary receptionist verified pt was picked up. ZACKARY Hills Original Note: Social Work- GUANAKO faxed discharge instructions to Rocio, case investigator [facility]. GUANAKO called and left a voicemail for Rocio as well. Plan: Home with resumption of [facility] services ZACKARY Hills
--- NOTE | 2024-03-25 17:02 | PCM.DC.SUM ---
Providers Date of Admission: 03/21/24 Primary Care Physician: Chaparro Mejia MD Consultations 03/20/24 21:34 Consult: Onc/Wound/molder closed molds Routine Comment: Reason for Consult:: Bilateral ischial/buttock ulcer clusters Reason For Visit: N/V/D, ELECTROLYTE DISTURBANCES Diagnosis Discharge Diagnosis (1) Nausea and vomiting: Status: Acute Code(s): R11.2 - Nausea with vomiting, unspecified Medications at Discharge Home Medications buspirone 30 mg tablet 15 mg PO BID anxiety 04/28/23 tizanidine 4 mg tablet 4 mg PO TID muscle relaxer 04/28/23 trazodone 100 mg tablet 100 mg PO QHS sleep 04/28/23 venlafaxine 150 mg capsule,extended release 24 hr 150 mg PO QDAY mental health 04/28/23 bupropion HCl 200 mg tablet,12 hr sustained-release 200 mg PO DAILY mental health 11/19/23 melatonin 5 mg capsule 5 mg PO QHS sleep 11/19/23 levothyroxine 125 mcg tablet 125 mcg PO DAILY@0600 thyroid #0 tabs 11/23/23 hydroxyzine HCl 25 mg tablet 25 mg PO TID PRN PRN anxiety 12/31/23 mecobalamin (vitamin B12) 1,000 mcg chewable tablet (B12 Active) 1,000 mcg PO QDAY vitamin 12/31/23 pantoprazole 40 mg tablet,delayed release (Protonix) 40 mg PO DAILY reflux 12/31/23 potassium chloride 20 mEq tablet,extended release 20 meq PO BID electrolyte 01/22/24 fexofenadine 180 mg tablet ([place] Allergy) 180 mg PO DAILY allergies 03/10/24 rosuvastatin 5 mg tablet 5 mg PO QHS cholesterol 03/10/24 verapamil 240 mg tablet,extended release 240 mg PO DAILY #30 tabs 03/11/24 Held on 03/25/24. Instructions: Resume on 04/08/24. 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 requiring significant intervention, Obesity, CKD stage II per GFR trending, Chronic Hyponatremia, Bilateral ischial/buttock ulcer clusters and left hand skin tear following with Wound Care with last visit noted 03/17/24 with plan for recommended barrier cream, daily soap and water assessment, offloading with follow-up in 2 weeks who presents to the [facility] ED on 03/20/2024 with history of onset nausea, emesis and diffuse abdominal cramping with general fatigue malaise with 2-3 episodes of loose stools on day of presentation noting that she does have chronic diarrhea secondary to history of bowel resection with bowel ischemic history however this is worsened and given fatigue and malaise prompted ED evaluation be cautious. She notes difficulty with potassium as well as magnesium oral toleration. She notes generally not feeling well prompting eventual evaluation. Workup in the ED included T97.7 Temporally, heart rate 96, BP 140/86, respirate 20, 100% room air with most recent repeat vitals heart rate 85, BP 1 6599, respiratory rate 16, 98% room air, CBC with WC 6.3, hemoglobin 10.6, MCV 90.5, platelet 319 without shift, CMP with potassium 2.9, magnesium 1.4, BUN/creatinine 2/0.98, GFR 60, hepatic profile with AST/LT 38/31, alk phos 118, urinalysis with evidence of dehydration with gravity mildly elevated 1.020 otherwise unremarkable, CT abdomen and pelvis with no acute intra-abdominal findings with mild fatty hypertrophy at the submucosal layer of the transverse colon seen in chronic inflammatory conditions or within limits of normal, evidence of prior right hemicolectomy, cholecystectomy and hysterectomy. In the ED patient ministered potassium 40 mill equivalent p.o. x 1, potassium 40 mill equivalents IV initiated, Zofran 4 mg IV x 1 and 1 L normal saline. Hospital Course: 1. Dehydration and electrolyte derangements ?Enteric pathogen panel is negative as is C. difficile ? Renal function is at baseline ?IV fluids have been completed, she does feel little bit overloaded and she used to be both on Lasix and Aldactone, may need to start low-dose Lasix while continuing her midodrine ? Blood pressures are low, will hold blood pressure medications and continue with midodrine ? Electrolytes have been replaced and normalized 03/25/2024: She is very sensitive to fluid volumes as she got some IV fluids here during this admission which then led to significant edema and weeping in her arms and her legs. Blood pressures remained low even with IV fluid resuscitation. She was started on midodrine which has allowed us to diurese her a little bit. Today she was feeling much better and I tried to convince her to go to a half-way for therapy and observation which she refused. I discussed with her the plan for discharge today and she expressed understanding of the risks and benefits of going home and initially was okay with going home in the morning until in the evening she changed her mind and said that she would like to stay 1 more day however I discussed with her there is no further test to do. I discussed with her primary care physician that when I was approaching her issues and atypical manner and I discharged her with midodrine and p.o. Lasix to help increase her blood pressure and to promote gentle diuresis. She was normally on 40 mg of p.o. Lasix about a week and a half ago, this will be decreased to 20 mg daily. I did urge her PCP to evaluate her sooner rather than later to make any adjustments to her medications and have a closer outpatient monitoring since she refused to go to half-way. Currently it is unclear as to why she continues to have nausea and vomiting, in discussion with colleagues she has refused in the past to proceed with gastric emptying studies for further clarification. Stool studies were negative on this admission as well. I do recommend holding her verapamil until she is able to follow-up with her PCP. 2. Hypothyroidism ? Patient is on levothyroxine home dose continued 3. GERD ? Stable ?On PPI 4. Essential hypertension ? Antihypertensives held on admission given relatively low blood pressure which has since resolved ? May need to reinstitute some low-dose Lasix, continue to hold her verapamil ? Continue with midodrine 03/25/2024: I discharged her today on 10 mg of midodrine p.o. 3 times daily to allow for adjustments by her PCP potentially go down to 5 mg 3 times daily versus just 10 mg daily. They are aware and stated they would make a note to follow-up with her in the next 3 to 5 days. Lab work and vital signs today on discharge were unremarkable 5. Dyslipidemia ?Patient is on statin therapy, continued at home dose 6. Depression with anxiety ? Patient is on buspirone as well as venlafaxine continue 7. Anemia ? Secondary to chronic disorder monitoring H&H and transfuse if patient becomes symptomatic or hemoglobin falls below 7 ? Iron studies are unremarkable today 8. Physical deconditioning ? Requested for PT OT eval and child welfare social worker to assist with discharge planning 9. Unstageable bilateral ischial/buttock decubitus ulcers present on admission ? Consult placed to wound care nurse 9. History of t partial colectomy involving the right colon ? On 09/30/2023 on account of ischemic colitis with bowel perforation. Procedure was performed by Dr. Stephenson. Physical Exam Narrative General: Alert, Oriented x3, Cooperative, No apparent distress HEENT: Atraumatic, PERRLA, EOMI, Normocephalic Oral: Moist Mucosa Neck: Supple, No JVD Lungs: Diminished, Normal air movement, No rhonchi, No wheeze, No rales Cardiovascular: Regular rate, Regular Rhythm, Normal S1, Normal S2, No murmurs Abdomen: Soft, Non Tender, Non-Distended, No Hepato-splenomegaly Extremities: Edema, Capillary Refill Less than 3 Seconds Skin: No rashes, No breakdown Musculoskeletal: No Tenderness to Palpation of Joints or Extremities Neurological: No focal neurological deficits, Motor Exam 5/5 strength throughout, Sensory exam intact to light touch and pain Psych/Mental Status: Flat Weight / BMI Weight Weight: 234 lb 5.622 oz Body Mass Index (BMI) 39.0 ABG / Lab / Microbiology Data 03/25/24 05:48 03/25/24 05:48 Laboratory: Laboratory Results - last 24 hr 03/25/24 05:48: WBC 5.0, RBC 2.93 L, Hgb 8.7 L, Hct 27.0 L, MCV 92.2, MCH 29.7, MCHC 32.2, RDW Std Deviation 51.8 H, RDW Coeff of Vicki 15.3 H, Plt Count 205, MPV 11.5, Immature Gran % (Auto) 0.600, Neut % (Auto) 57.6, Lymph % (Auto) 20.6, [place] % (Auto) 17.4 H, Eos % (Auto) 3.2, Baso % (Auto) 0.6, Absolute Neuts (auto) 2.9, Absolute Lymphs (auto) 1.03, Nucleated RBC % 0, Sodium 132 L, Potassium 3.9, Chloride 101, Carbon Dioxide 22.0, Anion Gap 9, BUN 2 L, Creatinine 0.72, Estim Creat Clear Calc 84.91, Est GFR (MDRD) Af Amer 104, Est GFR (MDRD) Non-Af 86, BUN/Creatinine Ratio 2.8 L, Glucose 116 H, Calcium 8.6 Microbiology: Microbiology 03/21/24 12:45 Stool Enteric Bacteriology - Final 03/21/24 12:45 Stool Clostridioides difficile (PCR) - Final D/C Instructions Discharge Diet: Low fat / Low cholesterol and 6 Cup Fluid Restriction Call your doctor if you observe: Fever of 101 or Higher, Shortness of breath, Dizziness, Fainting spells, Swelling in the ankles, Chest pain and Increased palpitations (irregular heartbeat) DC O2, CPAP, BIPAP Needs Home O2 Discharge instructions: No Meaningful Use Info Meaningful Use Meaningful Use Diagnoses (Choose all that apply): None applicable Ischemic Stroke Statin Dosing Therapy Reference: STATIN DOSE THERAPY REFERENCE: * Patients > 75 years receive moderate or high dose statin therapy. * Patients 75 years or YOUNGER should receive HIGH intensity statin dose unless contraindicated. You will be required to document reason for non-treatment if statin daily dose does not meet guidelines. HIGH DOSE STATIN THERAPY DAILY Atorvastatin > than or = to 40 mg Rosuvastatin > than or = to 20 mg Amlodipine + Atorvastatin > than or = to 2.5/40 mg Ezetimibe + Simvastatin 10/80 mg Simvastatin 80mg Discharge Plan Admission Admit Date/Time: 03/21/24 11:46 Attending Provider: Zia Cornejo Primary Care Provider: Chaparro Mejia Consulting Providers: Kassie Hunt; Christoph Echeverria Instructions Additional Instructions / Restrictions: Follow-up with your PCP in 3 to 5 days to monitor your electrolytes, renal function and your blood pressure. I did start you on midodrine which increases your blood pressure and I do recommend holding your verapamil. Given your history of having too much fluid on you, I did restart your Lasix at a low dose of 20 mg daily. Discharge Orders/Prescriptions Prescriptions: New furosemide 20 mg Tablet 20 mg PO DAILY 30 Days Qty: 30 0RF midodrine 10 mg tablet 10 mg PO TIDCM 15 Days Qty: 45 0RF Continued venlafaxine 150 mg capsule,extended release 24hr 150 mg PO QDAY buspirone 30 mg tablet 15 mg PO BID trazodone 100 mg tablet 100 mg PO QHS tizanidine 4 mg tablet 4 mg PO TID pantoprazole [Protonix] 40 mg tablet,delayed release (DR/EC) 40 mg PO DAILY hydroxyzine HCl 25 mg tablet 25 mg PO TID PRN PRN (Reason: anxiety) mecobalamin (vitamin B12) [B12 Active] 1,000 mcg tablet,chewable 1,000 mcg PO QDAY bupropion HCl 200 mg tablet sustained-release 12 hr 200 mg PO DAILY melatonin 5 mg capsule 5 mg PO QHS levothyroxine 125 mcg Tablet 125 mcg PO DAILY@0600 Qty: 0 0RF rosuvastatin 5 mg tablet 5 mg PO QHS fexofenadine [[place] Allergy] 180 mg tablet 180 mg PO DAILY potassium chloride 20 mEq tablet extended release 20 meq PO BID calcium carbonate [Tums] 200 mg calcium (500 mg) tablet,chewable 400 mg PO Q4H PRN (Reason: heartburn) Held verapamil 240 mg Tablet Extended Release 240 mg PO DAILY Qty: 30 0RF Hold Instructions: Resume on 04/08/24. Referrals / Follow Up: Chaparro Mejia MD [Primary Care Provider] - 03/29/24 3:40 pm Madi Reeder DO [Med Staff - Active Staff] - 03/30/24 3:00 pm Disposition Disposition (needs filled in before D/C Order can be placed): Home, Self Care Charges/Coding Visit Charges Inpatient E&M: 13564 Disch Hosp >30min
== END 2024-03-25 16:27 | disposition home or self-care (01) | DRG 391 ==
LOC: ED 20:09 → MS3 20:15
PROVIDERS: Internal Medicine; Admitting Provider Family Medicine; Emergency Provider Emergency Medicine; PCP Family Medicine; Visit Provider Family Medicine
DX: A08.4 Viral intestinal infection, unspecified (principal); E43 Unspecified severe protein-calorie malnutrition; E87.1 Hypo-osmolality and hyponatremia; K90.829 Short bowel syndrome, unspecified; L89.45 Pressure ulcer of contiguous site of back, buttock and hip, unstageable; D63.8 Anemia in other chronic diseases classified elsewhere; Z66 Do not resuscitate; E86.0 Dehydration; E03.9 Hypothyroidism, unspecified; I12.9 Hypertensive chronic kidney disease with stage 1 through stage 4 chronic kidney disease, or unspecified chronic kidney disease; E66.9 Obesity, unspecified; F41.8 Other specified anxiety disorders; E78.00 Pure hypercholesterolemia, unspecified; E87.6 Hypokalemia; E83.42 Hypomagnesemia; K21.9 Gastro-esophageal reflux disease without esophagitis; N18.2 Chronic kidney disease, stage 2 (mild); R60.0 Localized edema; T47.3X5A Adverse effect of saline and osmotic laxatives, initial encounter; Z88.0 Allergy status to penicillin; Z88.2 Allergy status to sulfonamides; Z88.8 Allergy status to other drugs, medicaments and biological substances; Z87.891 Personal history of nicotine dependence; Z87.19 Personal history of other diseases of the digestive system; Z79.899 Other long term (current) drug therapy; Z79.890 Hormone replacement therapy; Z90.49 Acquired absence of other specified parts of digestive tract; Z68.39 Body mass index [BMI] 39.0-39.9, adult
CPT/HCPCS: 36415; 74177; 80048; 80053; 80076; 81001; 82728; 83540; 83550; 83690; 83735; 84100; 84145; 85025; 87493; 87506; 97116; 97161; 97165; 97530; 97802; 99285; P9612; Q9967; A4216; J2405

== ENCOUNTER 2024-03-27 16:04 | Inpatient (IN) | payer MEDICARE, MEDICAID, SELFPAY ==
[2024-03-27] VITALS (13 sets, daily range): BP systolic 102–160; BP diastolic 58–130; PULSE 79–109; RESP 16–47; TEMP 36.3–36.7; O2SAT 93–99; BMI 36.7; BMI 36.0
--- NOTE | 2024-03-27 16:23 | CT_ITS ---
PROCEDURE: ABDOMEN/PELVIS WITH CONTRAST REASON FOR EXAM: Abdominal pain TECHNIQUE: Abdomen and pelvis CT with intravenous contrast. Multiplanar reconstructions were performed. COMPARISON: 03/20/2024 FINDINGS: Lower chest: Trace bilateral pleural effusions are present with bibasilar atelectasis. Liver: Hepatic steatosis is likely. There is an area of focal fatty infiltration adjacent to the falciform ligament. Biliary/gallbladder: Prior cholecystectomy. Pancreas: Unremarkable. Spleen: Unremarkable. Adrenal glands: Unremarkable. Kidneys: There is a small cyst in the right kidney. No renal calculus or hydronephrosis identified. Gastrointestinal/peritoneum: Postoperative changes present of a right-sided colonic resection.New colonic wall thickening is present at the sigmoid colon with hyperemia of the mucosa. Colonic wall thickening is present to a lesser degree at the transverse and descending colon. Dilated loops of small bowel are present without a distinct transition point, measuring up to 3 cm in diameter. No free air or free fluid. Vascular: [id number] scattered atherosclerotic calcifications are present of the aortoiliac vessels. There is likely a moderate stenosis of the distal aorta and left common iliac artery. Lymph nodes: No enlarged lymph nodes by CT size criteria. Pelvic organs: Prior hysterectomy. Bladder: Unremarkable. Bones: Unremarkable. Soft tissues: Unremarkable. CT/Abdomen/Pelvis WITH Contrast IMPRESSION: 1. Colonic wall thickening involving the transverse, descending and sigmoid col on, possibly due to acute infectious or inflammatory colitis. 2. Dilated small bowel loops are present in the right lower quadrant without a transition point, likely due to ileus. 3. Prior right-sided colonic resection, cholecystectomy and hysterectomy. 4. Trace bilateral pleural effusions with bibasilar atelectasis Reading Location: [facility]
--- NOTE | 2024-03-27 16:23 | EKG12_ITS ---
Test Reason : Blood Pressure : */* mmHG Vent. Rate : 82 BPM Atrial Rate : 82 BPM P-R Int : 154 ms QRS Dur : 74 ms QT Int : 400 ms P-R-T Axes : 40 10 2 degrees QTcB Int : 467 ms Sinus rhythm with Premature atrial complexes with Aberrant conduction Nonspecific ST and T wave abnormality Abnormal ECG Confirmed by RADHA CAMARA, JULIUS ([id number]), editorial specialist YARI KWONG ([id number]) on 03/29/2024 8:21:43 AM Referred By: Christoph Coronel Confirmed By: JULIUS GARCAI MD
--- NOTE | 2024-03-27 16:23 | EDS_ITS ---
HPI History of Present Illness Chief Complaint: Nausea/Vomiting Detail of Chief Complaint: Vomiting and abdominal pain Informant: patient Narrative Narrative: Patient presents with vomiting and abdominal pain that started yesterday evening. Patient describes diffuse abdominal discomfort. She has been vomiting multiple times. She states she always has chronic diarrhea. She tells me she was just discharged from the hospital 2 days ago and was admitted for similar illness. They took her off her water pill at that time. Patient states that they could not find an etiology of her symptoms. She denies fever. She denies urinary symptoms. [facility] Medical History Nausea and vomiting Anemia No natural teeth Wears glasses Depression Anxiety Walker as ambulation aid Arthritis Low iron Excessive bleeding Restless legs Heartburn Shortness of breath on exertion Former smoker History of echocardiogram Hypoalbuminemia Obesity (BMI 30-39.9) Suspected inflammatory bowel disease Elevated troponin Heart failure Gastroenteritis Diarrhea Small bowel perforation Small bowel ischemia Trigger finger, left ring finger Trigger finger, right ring finger Right carpal tunnel syndrome Bilateral carpal tunnel syndrome Hypothyroidism Anxiety and depression High cholesterol Hypertension Home Medications ?Medication ?Instructions ?Recorded ?Last Taken ?Type buspirone 30 mg tablet 15 mg PO BID anxiety 4 Unknown History tizanidine 4 mg tablet 4 mg PO TID muscle relaxer 0 04/28/23 Unknown History trazodone 100 mg tablet 100 mg PO QHS sleep 04/28/23 Unknown History venlafaxine 150 mg 150 mg PO QDAY mental health 04/28/23 Unknown History capsule,extended release 24 hr bupropion HCl 200 mg tablet,12 hr 200 mg PO DAILY [facility] 11/19/23 Unknown History sustained-release melatonin 5 mg capsule 5 mg PO QHS sleep 11/19/23 U nknown History levothyroxine 125 mcg tablet 125 mcg PO DAILY@0600 thy roid #0 11/23/23 Unknown Rx tabs hydroxyzine HCl 25 mg tablet 25 mg PO TID PRN PRN anxi ety 12/31/23 Unknown History mecobalamin (vitamin B12) 1,000 1,000 mcg PO QDAY ludivina min 12/31/23 Unknown History mcg chewable tablet (B12 Active) pantoprazole 40 mg tablet,delayed 40 mg PO DAILY reflu x 12/31/23 Unknown History release (Protonix) potassium chloride 20 mEq 20 meq PO BID electrolyte Unknown History tablet,extended release fexofenadine 180 mg tablet 180 mg PO DAILY allergies 0 03/10/24 Unknown History ([place] [facility]) rosuvastatin 5 mg tablet 5 mg PO QHS cholesterol 02/11 11/04 Unknown History verapamil 240 mg tablet,extended 240 mg PO DAILY #30 t abs 03/11/24 Unknown Rx release Held on 03/25/24. Instructions: Resume on 04/08/24. calcium carbonate (Tums) 400 mg PO Q4H PRN heartburn 03/23/24 Unknown History furosemide 20 mg tablet 20 mg PO DAILY 30 days #30 t abs 03/25/24 Unknown Rx midodrine 10 mg tablet 10 mg PO TIDCM 15 days #45 t abs 03/25/24 Unknown Rx Allergy/AdvReac Type Severity Reaction Status Date / Time codeine Allergy Mild Vomiting Verified 03/27/24 16:06 cefaclor (From Ceclor) Allergy Anaphylaxis Verified 03/27/24 16:06 chlorhexidine Allergy Hives Verified 03/27/24 16:06 paroxetine (From Paxil) Allergy Anaphylaxis Verified 03/27/24 16:06 Penicillins Allergy Anaphylaxis Verified 03/27/24 16:06 Sulfa (Sulfonamide Allergy Anaphylaxis Verified 03/27/24 16:06 Antibiotics) magnesium sulfate AdvReac Severe Nausea/Vom/ Verified 03/27/24 16:06 Diarrhea magnesium AdvReac Intermediate nausea/vomi Verified 03/27/24 16:06 ting Family History Mother Heart disease Father Heart disease Surgical History History of carpal tunnel release of both wrists History of exploratory laparotomy S/P TKR (total knee replacement) History of shoulder replacement History of hysterectomy History of cholecystectomy Hx of appendectomy Social History household members: none Smoking Status: Former smoker alcohol intake: never substance use type: does not use ROS ROS ED Review of Systems ROS Unobtainable: other Constitutional Constitutional ED: Reports lethargy; Denies chills, fever(s), sweats or weight loss Eyes Eyes: Denies blurry vision, change in vision or diplopia ENT ENT ED: Denies rhinorrhea or sore throat Cardiovascular Cardiovascular: Denies chest pain, orthopnea or racing heartbeat Respiratory/Chest Respiratory/Chest: Denies cough, dyspnea, dyspnea on exertion, orthopnea or sputum Gastrointestinal Gastrointestinal: Reports abdominal pain, nausea and vomiting; Denies diarrhea Genitourinary Genitourinary ED: Denies dysuria, hematuria or urinary frequency Musculoskeletal Musculoskeletal: Denies arthralgias, back pain, myalgias or neck pain Integumentary Denies abscess, Abrasions or rash Neurologic Neurologic: Denies headache(s) or weakness Psychiatric Psychiatric: Denies anxiety, depression or suicidal thoughts Endocrine Endocrinology: Denies polydipsia, polyphagia or polyuria Hematologic/Lymphatic Hematologic/Lymphatic: Denies easy bleeding, easy bruising or lymphadenopathy Allergic/Immunologic Allergic/Immunologic ED: Denies mouth swelling, tongue swelling or urticaria EXAM Physical Exam Const Vital Signs: 03/27/24 16:05 03/27/24 16:12 03/27/24 16:15 Temperature 97.4 F L Temperature Source Oral Pulse Rate 79 82 Respiratory Rate 16 47 H Blood Pressure 135/59 H 148/115 H Blood Pressure Mean 84 126 Pulse Ox 99 Oxygen Delivery Method Room Air 03/27/24 16:30 03/27/24 16:45 03/27/24 18:11 Temperature Temperature Source Pulse Rate 80 93 Respiratory Rate 25 H 32 H 29 H Blood Pressure 160/130 H Blood Pressure Mean 141 Pulse Ox 98 97 95 Oxygen Delivery Method Room Air 03/27/24 18:15 03/27/24 18:16 03/27/24 18:30 Temperature Temperature Source Pulse Rate 91 97 91 Respiratory Rate 22 H 20 H 22 H Blood Pressure 139/68 H 146/58 H Blood Pressure Mean 88 82 Pulse Ox 95 93 96 Oxygen Delivery Method Room Air Room Air Positive well nourished and well developed General Appearance ED: well developed and NAD HEENT Reports TM's clear and moist mucous membranes normocephalic and atraumatic; Negative for trauma or tenderness Tympanic Membrane ED: Yes TM's clear Eyes PERRL and EOMs intact bilaterally General Eye ED: Negative for pale conjunctiva or scleral icterus Neck no lymphadenopathy, supple and no JVD General: Negative for tenderness Chest Wall inspection of chest normal and palpation of chest normal Chest: Negative for tenderness Resp normal respiratory effort and clear to auscultation bilaterally Effort and Inspection: Negative for respiratory distress or pain with movement Auscultation: Negative for rhonchi, wheezes or diminished lung sounds Cardio regular rate, regular rhythm, S1 normal heart sound, S2 normal heart sound and no murmurs Peripheral Pulses: pulses 2+ throughout GI normal to inspection, nondistended, normoactive bowel sounds, soft to palpation, non-distended and no masses GI Narrative: Patient morbidly obese. She has diffuse tenderness on exam. She has mild guarding. There is no rebound or rigidity. Back/Spine no CVA tenderness and no thoracic nor lumbar tenderness Extremity Extremity Narrative: +3 edema both lower extremities General Extremety ED: Negative for edema General Extremity: Negative for edema Neuro oriented x3, CN's II-XII intact bilaterally, no sensory deficits noted and gait normal Sensorium / Orientation: awake, alert, oriented to person, oriented to place and oriented to time Motor Exam: strength 5/5 throughout and strength abnormal Psych mental status grossly normal Skin no rashes or lesions noted and no wounds MDM MDM MDM Narrative Medical decision making narrative: Patient presents with vomiting and diarrhea and abdominal pain. She was admitt ed recently for similar complaints. She has been dealing with these issues for over 6 months. She has had multiple testing. No etiologies been found. Patient had a fall a few weeks ago and hit her head. She thinks she may have had imaging of her brain at that time and was told she just had a hematoma to her head. Patient has had prior appendectomy, cholecystectomy, hysterectomy. IV established. CBC with differential white count 4.8 with hemoglobin 9.1 and platelet count of 312. Chemistries unremarkable other than a depressed potassium at 3.1 for which I did give her 40 mEq of potassium chloride p.o. Patient was medicated with Zofran and was given 4 mg of morphine IV. Lactate was elevated 2.3. Urinalysis ordered and pending. CT scan of the brain without contrast was unremarkable. CT scan of the abdomen pelvis showed thickening of the transverse colon and consistent with colitis. Patient also had some distended bowel loops in the right lower quadrant which may be indicative of an ileus but no transition point to indicate a bowel obstruction. I was able to review the medical record and she had stool studies sent for enteric pathogen's during her last visit that were negative and she was negative for C. difficile as well at that time. Patient will be admitted for pain control as well as fluids and antiemetics as she continues to feel poorly and does not feel she can go home as she lives alone and does not think she manage Lab Data Attestation: I reviewed the patient's lab results. Labs: Laboratory Results - last 24 hr 03/27/24 17:10 WBC 4.8 RBC 3.09 L Hgb 9.1 L Hct 28.0 L MCV 90.6 MCH 29.4 MCHC 32.5 RDW Std Deviation 51.2 H RDW Coeff of Vicki 15.5 H Plt Count 312 MPV 10.8 Immature Gran % (Auto) 0.400 Neut % (Auto) 50.9 Lymph % (Auto) 25.5 Kent % (Auto) 21.1 H Eos % (Auto) 1.5 Baso % (Auto) 0.6 Absolute Neuts (auto) 2.4 Absolute Lymphs (auto) 1.21 Nucleated RBC % 0 Sodium 135 L Potassium 3.1 L Chloride 101 Carbon Dioxide 25.0 Anion Gap 9 BUN 1 L Creatinine 0.70 Estim Creat Clear Calc 82.17 Est GFR (MDRD) Af Amer 108 Est GFR (MDRD) Non-Af 89 BUN/Creatinine Ratio 1.4 L Glucose 95 Lactic Acid 2.3 H* Calcium 8.3 L Total Bilirubin 0.50 AST 28 ALT 25 Alkaline Phosphatase 156 H Troponin I High Sens 13 Total Protein 5.6 L Albumin 2.0 L Globulin 3.6 Albumin/Globulin Ratio 0.6 L EKG Initial EKG: Attestation: I personally reviewed and interpreted this EKG as follows: Comments: Sinus rhythm with ventricular rate of [address] changes Discharge Plan Triage Chief Complaint: Nausea/Vomiting ED Provider: Jhonathan Coronado Dx/Rx/DC Orders Clinical Impression: Abdominal pain, Hypokalemia, Colitis, Ileus Prescriptions: No Action venlafaxine 150 mg capsule,extended release 24hr 150 mg PO QDAY buspirone 30 mg tablet 15 mg PO BID trazodone 100 mg tablet 100 mg PO QHS tizanidine 4 mg tablet 4 mg PO TID pantoprazole [Protonix] 40 mg tablet,delayed release (DR/EC) 40 mg PO DAILY hydroxyzine HCl 25 mg tablet 25 mg PO TID PRN PRN (Reason: anxiety) mecobalamin (vitamin B12) [B12 Active] 1,000 mcg tablet,chewable 1,000 mcg PO QDAY bupropion HCl 200 mg tablet sustained-release 12 hr 200 mg PO DAILY melatonin 5 mg capsule 5 mg PO QHS levothyroxine 125 mcg Tablet 125 mcg PO DAILY@0600 Qty: 0 0RF rosuvastatin 5 mg tablet 5 mg PO QHS fexofenadine [[place] Allergy] 180 mg tablet 180 mg PO DAILY verapamil 240 mg Tablet Extended Release 240 mg PO DAILY Qty: 30 0RF potassium chloride 20 mEq tablet extended release 20 meq PO BID calcium carbonate [Tums] 200 mg calcium (500 mg) tablet,chewable 400 mg PO Q4H PRN (Reason: heartburn) furosemide 20 mg Tablet 20 mg PO DAILY 30 Days Qty: 30 0RF midodrine 10 mg tablet 10 mg PO TIDCM 15 Days Qty: 45 0RF Primary Care Provider: Chaparro Mejia Referrals: Chaparro Mejia MD [Primary Care Provider] - Print Language: Bulgarian Disposition Disposition: Acute Care Hospital [facility]
[2024-03-27] MEDS: 0.9% Normal Saline (1000mL) 1,000 ML 999 ML IV (17:12)
[2024-03-27] MEDS: Ondansetron 4 MG/2 ML Vial IV ×2 (17:12→19:38)
[2024-03-27 17:26] LABS: Absolute Lymphocyte Count 1.21 X10^3/uL (0.83-4.51); Absolute Neutrophil Count 2.4 X10^3/uL (2.0-7.7); Basophil# 0.03 X10^3/uL; Basophil% 0.6 % (0-1); Eosinophil# 0.07 X10^3/uL; Eosinophils% 1.5 % (0-5); Hemoglobin 9.1 g/dL (12.0-15.0); Lymphocyte # 1.21 X10^3/ul (0.83-4.51); Lymphocyte % 25.5 % (19-41); Mean Corp Hgb Conc 32.5 g/dL (32-36); Mean Corpuscular Hgb 29.4 pg (27.0-32.0); Mean Corpuscular Volume 90.6 fL (81-99); Mean Platelet Vol. 10.8 fl (6.2-12.0); Monocyte% 21.1 % (0-10); NRBC Flagged by Analyzer 0 % (0-5); Neutrophil # 2.42 X10^3/uL (2.7-7.7); Neutrophil % 50.9 % (47-70); Platelet Count 312 K/mm3 (150-450); RBC Distribution Width CV 15.5 % (11.6-14.6); RBC Distribution Width SD 51.2 fl (35.1-43.9); Red Blood Count 3.09 M/mm3 (4.2-5.4); White Blood Count 4.8 K/mm3 (4.4-11.0)
[2024-03-27 17:59] LABS: ALB/GLOB Ratio 0.6 RATIO (0.9-2.4); AST(SGOT) 28 U/L (15-37); Alanine Aminotransfer ALT/SGPT 25 U/L (13-56); Alkaline Phosphatase 156 U/L (45-117); Anion Gap 9 (5-15); BUN 1 mg/dL (7-18); BUN/Creat Ratio 1.4 RATIO (10-20); Calcium,Total 8.3 mg/dL (8.5-10.1); Chloride 101 mmol/L (98-107); EST Glomerular Filtration Rate 89 mL/min (>60); Est Glom Filt Rate - Afr Amer 108 mL/min (>60); Estimated Creatinine Clearance 82.17 ml/min; Globulin 3.6 g/dL (2.2-4.2); Glucose 95 mg/dL (74-106); Potassium 3.1 mmol/L (3.5-5.1); Protein, Total 5.6 g/dL (6.4-8.2); Sodium Level 135 mmol/L (136-145); Troponin-I HS 13 pg/mL (3.0-54.0)
[2024-03-27 18:03] LABS: Lactic Acid 2.3 mmol/L (0.4-1.9)
--- NOTE | 2024-03-27 18:13 | CT_ITS ---
EXAM: BRAIN/HEAD WITHOUT CONTRAST CLINICAL HISTORY: Confusion, mental status change COMPARISON: 03/16/2024 TECHNIQUE: Noncontrast images of the head with multiplanar reconstructions. Dose reduction techniques were used including intermediate exposure control (AEC),iterative reconstruction technique, and/or mA and/or KV dose adjustments based on patient's size. FINDINGS: No acute intracranial hemorrhage. No loss of rosas-white differentiation.The ventricles and sulci are normal in appearance. The osseous structures are unremarkable. No soft tissue abnormality identified. Mucous is present in the sphenoid sinus. CT/Brain/Head without Contrast IMPRESSION: 1. No acute intracranial abnormality. 2. Acute sphenoid sinusitis. Reading Location: [facility]
[2024-03-27] MEDS: Potassium Chloride Oral Tablet 20 MEQ 40 MEQ PO (18:16)
[2024-03-27] MEDS: Morphine 4 MG/ML Syringe IV (19:38)
--- NOTE | 2024-03-27 20:20 | PCM.HP.STD ---
[facility] - General General Date of Admission: 03/27/24 Date of Service: 03/27/24 Chief Complaint: Nausea, Vomiting, Abdominal Pain and Non-bloody Diarrhea. HPI Narrative ROSALINDA ALVARADO, is a 63 F with a past medical history of essential hypertension; on verapamil, losartan-hydrochlorothiazide and furosemide, hyperlipidemia; on rosuvastatin, hypothyroidism; on levothyroxine, obesity; with BMI of 36.7 this admission, history of CHF, history of hyponatremia, history of small bowel ischemia with perforation, history of exploratory laparotomy (09/2023), MANUEL, depression with anxiety; on buspirone, trazodone, bupropion, venlafaxine and as needed hydroxyzine, history of muscle spasms; on tizanidine TID, history of CTS, history of trigger finger and the fourth digit of both hands, GERD; on Protonix, listed allergy to PCN; (anaphylaxis), listed allergy to sulfonamide antibiotics (anaphylaxis), listed allergy to Paxil (anaphylaxis), listed allergy to Ceclor (anaphylaxis), listed allergy to chlorhexidine (hives), OA; with TKR and total shoulder replacement with chronic pain syndrome on as needed oxycodone every 6 hours and recent admission here from March 20, 2024 to March 25, 2024 for treatment of abdominal pain with generalized fatigue and malaise causing diarrhea presumed to be secondary to history of bowel resection with ischemic bowel history causing dehydration and electrolyte derangements complicated by bilateral ischial/buttock ulcer clusters and Left hand skin tear with chronic ~3+ bilateral lower extremity edema followed by Wound Care with last visit noted on March 17, 2024 who now re-presents to [facility] ER complaining of continued nausea, vomiting, abdominal pain and nonbloody diarrhea with confusion. Ms. Alvarado reports ongoing nausea and vomiting with bilious emesis complicated by diffuse abdominal pain that is unrelenting. She states she has chronic nonbloody diarrhea and her stool studies from last admission were markedly negative - yet her severe symptoms persist. A review of her records revealed pathology specimen obtained from Laparotomy with Right Hemicolectomy (done for small bowel perforation) from January 2024 showed segments of small and large bowel with extensive area of ischemic changes and hemorrhagic infarction involving mucosa and submucosa with small bowel and colonic donut and no pathologic diagnosis. She denies associated fever, chills, dysuria, chest pain, shortness of breath, headache or focal motor neurologic deficits but she does admit to confusion. In the ER she was noted to have CT evidence of colonic wall thickening involving the transverse, descending and sigmoid colon possibly due to Acute Infectious or Inflammatory Colitis with dilated small bowel loops in the Right lower quadrant without a transition point likely due to Ileus with evidence of a prior Right-sided colonic resection, cholecystectomy and hysterectomy along with trace bilateral pleural effusions with bibasilar atelectasis plus she underwent head CT which revealed no acute intracranial abnormality but did show an Acute Sphenoid Sinusitis complicated by laboratory evidence of Lactic Acidosis of 2.3 mmol/L plus Hypokalemia of 3.1 mmol/L and Hypomagnesemia of 1.4 mg/dL present on admission compounded by evidence of Severe Acute Protein-Calorie Malnutrition with Severe Hypoalbuminemia 2 g/dL present on admission all combining to cause clinical evidence of Acute Metabolic Encephalopathy in the setting of an overall pattern of serial readmission for similar pattern of illness. She was then admitted to the general medical floor for ongoing care for a stay that is expected to extend beyond 2 midnights. [facility] Medical History (Updated 03/27/24 @ 23:[address] Christoph Coronel, DO) Obesity (BMI 30-39.9) Nausea and vomiting Anemia No natural teeth Wears glasses Depression Anxiety Walker as ambulation aid Arthritis Low iron Excessive bleeding Restless legs Heartburn Shortness of breath on exertion Former smoker History of echocardiogram Hypoalbuminemia Suspected inflammatory bowel disease Elevated troponin Heart failure Gastroenteritis Diarrhea Small bowel perforation Small bowel ischemia Trigger finger, left ring finger Trigger finger, right ring finger Right carpal tunnel syndrome Bilateral carpal tunnel syndrome Hypothyroidism Anxiety and depression High cholesterol Hypertension Home Medications ?Medication ?Instructions ?Recorded ?Last Taken ?Type buspirone 30 mg tablet 15 mg PO BID anxiety 04/28/23 Unknown History tizanidine 4 mg tablet 4 mg PO TID muscle relaxer 04/28/23 Unknown History trazodone 100 mg tablet 100 mg PO QHS sleep 04/28/23 Unknown History venlafaxine 150 mg 150 mg PO QDAY mental health 04/28/23 Unknown History capsule,extended release 24 hr bupropion HCl 200 mg tablet,12 hr 200 mg PO DAILY mental health 11/19/23 Unknown History sustained-release melatonin 5 mg capsule 5 mg PO QHS sleep 11/19/23 Unknown History levothyroxine 125 mcg tablet 125 mcg PO DAILY@0600 thyroid #0 11/23/23 Unknown Rx tabs mecobalamin (vitamin B12) 1,000 1,000 mcg PO QDAY vitamin 12/31/23 Unknown History mcg chewable tablet (B12 Active) pantoprazole 40 mg tablet,delayed 40 mg PO BID reflux 12/31/23 Unknown History release (Protonix) potassium chloride 20 mEq 20 meq PO BID electrolyte 01/22/24 Unknown History tablet,extended release fexofenadine 180 mg tablet 180 mg PO DAILY allergies 03/10/24 Unknown History ([place] Allergy) rosuvastatin 5 mg tablet 5 mg PO QHS cholesterol 03/10/24 Unknown History verapamil 240 mg tablet,extended 240 mg PO DAILY blood pressure #30 03/11/24 Unknown Rx release tabs Held on 03/25/24. Instructions: Resume on 04/08/24. calcium carbonate (Tums) 400 mg PO Q4H PRN heartburn 03/23/24 Unknown History furosemide 20 mg tablet 20 mg PO DAILY water pill 30 days 03/25/24 Unknown Rx #30 tabs midodrine 10 mg tablet 10 mg PO TIDCM blood pressure 15 03/25/24 Unknown Rx days #45 tabs Allergy/AdvReac Type Severity Reaction Status Date / Time codeine Allergy Mild Vomiting Verified 03/27/24 16:06 cefaclor (From Ceclor) Allergy Anaphylaxis Verified 03/27/24 16:06 chlorhexidine Allergy Hives Verified 03/27/24 16:06 paroxetine (From Paxil) Allergy Anaphylaxis Verified 03/27/24 16:06 Penicillins Allergy Anaphylaxis Verified 03/27/24 16:06 Sulfa (Sulfonamide Allergy Anaphylaxis Verified 03/27/24 16:06 Antibiotics) magnesium sulfate AdvReac Severe Nausea/Vom/ Verified 03/27/24 16:06 Diarrhea magnesium AdvReac Intermediate nausea/vomi Verified 03/27/24 16:06 ting Family History Mother Heart disease Father Heart disease Surgical History History of carpal tunnel release of both wrists History of exploratory laparotomy S/P TKR (total knee replacement) History of shoulder replacement History of hysterectomy History of cholecystectomy Hx of appendectomy Social History household members: none Smoking Status: Former smoker alcohol intake: never substance use type: does not use ROS ROS Narrative Review of Systems: Constitutional: Patient admits to lethargy and confusion but she denies fever, chills or weight loss. Eyes: Patient denies changes in vision or discharge from eyes. ENT: Patient denies runny nose, sore throat or ear pain. Resp: Patient denies shortness of breath or cough. CV: Patient denies chest pain, palpitations or heart racing but she does admit to chronic lower extremity edema. GI: Patient admits to diffuse abdominal pain that is cramping in nature and intermittent but severe with nausea and vomiting with bilious emesis plus chronic nonbloody diarrhea. : Patient denies dysuria, hematuria or urinary frequency. MSK: Patient denies arthralgias or myalgias. Skin: Patient denies rash but has chronic bilateral buttock/ischial wounds essentially unchanged from previous. Psych: Patient denies symptoms of uncontrolled depression or anxiety. Neuro: Patient denies headache, paresthesias or focal neurologic deficits. Allergy: Patient denies lip swelling, tongue swelling and urticaria. Hematology: Patient denies easy bleeding or easy bruisability. Endocrinology: Patient denies polyuria, polydipsia or polyphagia. 14 point review systems otherwise negative except for positives noted above in HPI. Vital Signs Vital Signs Vital Signs: 03/27/24 16:05 03/27/24 16:12 03/27/24 16:15 Temperature 97.4 F L Temperature Source Oral Pulse Rate 79 82 Respiratory Rate 16 47 H Blood Pressure 135/59 H 148/115 H Blood Pressure Mean 84 126 Pulse Ox 99 Oxygen Delivery Method Room Air 03/27/24 16:30 03/27/24 16:45 03/27/24 18:11 Temperature Temperature Source Pulse Rate 80 93 Respiratory Rate 25 H 32 H 29 H Blood Pressure 160/130 H Blood Pressure Mean 141 Pulse Ox 98 97 95 Oxygen Delivery Method Room Air 03/27/24 18:15 03/27/24 18:16 03/27/24 18:30 Temperature Temperature Source Pulse Rate 91 97 91 Respiratory Rate 22 H 20 H 22 H Blood Pressure 139/68 H 146/58 H Blood Pressure Mean 88 82 Pulse Ox 95 93 96 Oxygen Delivery Method Room Air Room Air 03/27/24 20:13 Temperature Temperature Source Pulse Rate 96 Respiratory Rate 36 H Blood Pressure 149/111 H Blood Pressure Mean 123 Pulse Ox 98 Oxygen Delivery Method Weight Weight: 220 lb 10.923 oz Body Mass Index (BMI) 36.7 Physical Exam Const alert and oriented x3 Constitutional Narrative: Patient appears moderately distressed and chronically ill. General Appearance: cooperative HEENT normocephalic, head/scalp atraumatic, hearing grossly normal bilaterally and moist oral mucous membranes Eyes PERRL, EOMs intact bilaterally and conjunctivae normal Neck no lymphadenopathy and supple Resp normal respiratory effort, no retractions, no use of accessory muscles and clear to auscultation bilaterally Cardio regular rate and regular rhythm GI GI Narrative: Patient has diffuse tenderness to palpation over entire abdomen with mild guarding but no rebound or rigidity with normoactive bowel sounds. Extremity Extremity Narrative: ~3+ bilateral lower extremity edema. Skin Skin Narrative: Patient has evidence of rash. Neuro oriented x3, CN's II-XII intact bilaterally, moves all extremities and no focal motor deficits Sensorium / Orientation: awake, alert, oriented to person, oriented to place and oriented to time Speech: speech normal Psych affect normal Results Medical Records Data Attestation: I reviewed the patient's medical records Lab / Micro Data Attestation: I reviewed the patient's lab results. 03/28/24 05:35 03/28/24 05:35 Labs: Laboratory Results - last 24 hr 03/27/24 17:10: WBC 4.8, RBC 3.09 L, Hgb 9.1 L, Hct 28.0 L, MCV 90.6, MCH 29.4, MCHC 32.5, RDW Std Deviation 51.2 H, RDW Coeff of Vicki 15.5 H, Plt Count 312, MPV 10.8, Immature Gran % (Auto) 0.400, Neut % (Auto) 50.9, Lymph % (Auto) 25.5, Rolette % (Auto) 21.1 H, Eos % (Auto) 1.5, Baso % (Auto) 0.6, Absolute Neuts (auto) 2.4, Absolute Lymphs (auto) 1.21, Nucleated RBC % 0, Sodium 135 L, Potassium 3.1 L, Chloride 101, Carbon Dioxide 25.0, Anion Gap 9, BUN 1 L, Creatinine 0.70, Estim Creat Clear Calc 82.17, Est GFR (MDRD) Af Amer 108, Est GFR (MDRD) Non-Af 89, BUN/Creatinine Ratio 1.4 L, Glucose 95, Lactic Acid 2.3 H*, Calcium 8.3 L, Total Bilirubin 0.50, AST 28, ALT 25, Alkaline Phosphatase 156 H, Troponin I High Sens 13, Total Protein 5.6 L, Albumin 2.0 L, Globulin 3.6, Albumin/Globulin Ratio 0.6 L Imaging Radiology Impression Abdomen/Pelvis CT 03/27/24 16:23 IMPRESSION: 1. Colonic wall thickening involving the transverse, descending and sigmoid colon, possibly due to acute infectious or inflammatory colitis. 2. Dilated small bowel loops are present in the right lower quadrant without a transition point, likely due to ileus. 3. Prior right-sided colonic resection, cholecystectomy and hysterectomy. 4. Trace bilateral pleural effusions with bibasilar atelectasis Reading Location: [facility] Brain CT 03/27/24 18:13 IMPRESSION: 1. No acute intracranial abnormality. 2. Acute sphenoid sinusitis. Reading Location: [facility] Assessment & Plan Assessment/Plan (1) Colitis: (2) Chronic diarrhea: (3) Nausea and vomiting: QUALIFIERS: Vomiting type: unspecified Qualified Code(s): R11.2 - Nausea with vomiting, unspecified (4) Abdominal pain: QUALIFIERS: Abdominal location: unspecified location Qualified Code(s): R10.9 - Unspecified abdominal pain (5) Acute sphenoidal sinusitis, unspecified: QUALIFIERS: Recurrence: not specified as recurrent Qualified Code(s): J01.30 - Acute sphenoidal sinusitis, unspecified (6) Lactic acidosis: (7) Hypokalemia: (8) Hypomagnesemia: (9) Hypoalbuminemia due to protein-calorie malnutrition: (10) Acute metabolic encephalopathy: (11) Obesity (BMI 30-39.9): PLAN: Plan 1. Suspected [id number] Inflammatory Colitis with Chronic Non-bloody Diarrhea and Intractable Nausea and Vomiting with abdominal Pain and corresponding CT evidence of colonic wall thickening involving the transverse, descending and sigmoid colon possibly due to Acute Infectious or Inflammatory Colitis with dilated small bowel loops in the Right lower quadrant without a transition point likely due to Ileus with evidence of a prior Right-sided colonic resection, cholecystectomy and hysterectomy along with trace bilateral pleural effusions with bibasilar atelectasis in the setting of multiple admissions for this complaint with negative evaluations and pathology specimen obtained from Laparotomy with Right Hemicolectomy (done for small bowel perforation) from January 2024 showed segments of small and large bowel with extensive area of ischemic changes and hemorrhagic infarction involving mucosa and submucosa with small bowel and colonic donut and no pathologic diagnosis - Admit to general medical floor. Start empiric antibiotic treatment with IV levofloxacin and IV metronidazole plus start IV Solu-Medrol. Start Protonix 40 mg IV daily. Keep strict n.p.o. for now. Give IV ketorolac as needed for [id number] (level 1-5/10) pain or fever. Give hydromorphone IV as needed for severe (level 6-10/10) pain. Give ondansetron IV as needed for nausea and vomiting. Give promethazine IM for breakthrough nausea and vomiting. Place scopolamine patch for persistent nausea. Check SUDEEP panel, ESR and CRP to evaluate for underlying autoimmunity and inflammation. Finally, we will consult personalized living manager nurse to see patient on rounds in a.m. for specific autoimmune/inflammatory colitis workup with no recent colonoscopy noted and help appreciated in advance. 2. Head CT which revealed no acute intracranial abnormality but did show an Acute Sphenoid Sinusitis complicating #1 - Antibiotics used to treat #1 should cover this as well. 3. Lactic Acidosis of 2.3 mmol/L likely arising from #1 - Continue volume resuscitation and care plan as outlined above and then recheck lactate to confirm improvement. 4. Hypokalemia of 3.1 mmol/L and Hypomagnesemia 1.4 mg/dL present on admission presumed to be due to #1 - Give supplemental IV KCl and then recheck level in AM to follow trend. Give 2g magnesium sulfate IV x 1 and recheck level in a.m. to ensure repletion. 5. Severe Acute Protein-Calorie Malnutrition with Severe Hypoalbuminemia 2 g/dL present on admission adding to the medical complexity of #1 - #4 - We will consult dietitian to see patient on-rounds in AM for formal malnutrition screening with help appreciated in advance. 6. Acute Metabolic Encephalopathy attributable to #1 - #5 - Checked TSH, B12, Folate, UDS and GRACIE to evaluate for potentially reversible causes of confusion with TSH noted to be suppressed at 0.315 ?IU/mL (with free T4 and free T3 pending) and UDS positive for MDMA (Ecstasy). I then queried the pharmacist on-call to review patient's list of medications to see if anything would trigger a pulse positive for MDMA (Ecstasy) with the medical literature describing false positive MDMA test due to trazodone. 7. Obesity; with BMI of 36.7 this admission adding to the burden of disease outlined from #1 - #6 - Weight loss will be recommended. Check TSH. This complicates her case and may hamper recovery. 8. Recent admission here from March 20, 2024 to March 25, 2024 for treatment of abdominal pain with generalized fatigue and malaise causing diarrhea presumed to be secondary to history of bowel resection with ischemic bowel history causing dehydration and electrolyte derangements complicated by bilateral ischial/buttock ulcer clusters and Left hand skin tear with chronic ~3+ bilateral lower extremity edema followed by Wound Care with last visit noted on March 17, 2024 - Noted. Wound RN consulted to see patient on-rounds in AM with help appreciated in advance. PT/OT and Case Management to consult and treat on-rounds in AM for further recommendations with help appreciated in advance. 9. History of small bowel ischemia with perforation - Noted. 10. Essential Hypertension; on verapamil, losartan-hydrochlorothiazide and furosemide - Hold scheduled antihypertensives at this time. Give hydralazine IV prn systolic blood pressure > 160 mmHg. 11. Hyperlipidemia; on rosuvastatin - Hold statin until patient resumes oral intake. 12. Hypothyroidism; on levothyroxine - Hold oral medication and give IV levothyroxine if NPO status is protracted. 13. History of CHF - Stable. 14. History of hyponatremia - Stable with serum sodium of 135 mmol/L present on admission. 15. MANUEL - Stable with hemoglobin of 9.1 g/dL and MCV of 90.6 fL present on admission. 16. Depression with anxiety; on buspirone, trazodone, bupropion, venlafaxine and as needed hydroxyzine - Give as needed IM hydroxyzine for breakthrough symptoms while patient NPO. Restart previous regimen when patient is able to resume oral intake. 17. History of muscle spasms; on tizanidine TID - Noted. 18. History of CTS - Noted. 19. History of trigger finger and the fourth digit of both hands - Noted for the sake of completeness. 20. GERD; on pantoprazole BID - Patient on IV pantoprazole for #1. 21. Listed allergy to PCN; (anaphylaxis) - Noted. We will avoid this class of agents. 22. Listed allergy to sulfonamide antibiotics (anaphylaxis) - Noted. We will also avoid this agents. 23. Listed allergy to Ceclor (anaphylaxis) - Noted. 24. Listed allergy to Paxil (anaphylaxis) - Noted. 25. Listed allergy to chlorhexidine (hives) - Noted. 26. OA; with TKR and total shoulder replacement with chronic pain syndrome previously on as needed oxycodone every 6 hours - Patient on IV hydromorphone prn for severe pain as noted above in #1. 27. DVT prophylaxis - SCD's only at this time with hopeful impending colonoscopy this admission. Total time: Approximately (but not less than) 75 minutes. Charges/Coding Visit Charges Inpatient E&M: 72976 Init Hosp L3
[2024-03-27 21:21] LABS: Reflex Lactate? Y
[2024-03-27 21:50] LABS: Bacteria 0 SEEN /hpf (None Seen); Mucous, Urine 0 SEEN /hpf (<or=2+)
[2024-03-27 21:52] LABS: Color, Urine Yellow (Yellow); Glucose, Dipstick Normal (Normal); Ketone-Dipstick Negative (Negative); Leukocyte Esterase-Dipstick 100 /ul (Negative); Nitrite-Dipstick Negative (Negative); Occult Blood-Urine Negative /ul (Negative); Protein-Dipstick Negative (Negative); Urine Bilirubin Dipstick Negative (Negative); Urine Clarity Clear (Clear); Urine Urobilinogen Normal (Normal)
[2024-03-27] MEDS: Pantoprazole Sodium 40 MG in 0.9% Normal Saline (100mL MB+) 100 ML 330 MG IV (22:09)
[2024-03-27] MEDS: Scopolamine 1mg/72hr Patch 1 PATCH TD (22:10)
[2024-03-27] MEDS: metroNIDAZOLE 500 MG/100 ML BAG 100 MG IV (22:12)
[2024-03-27] MEDS: KCL 20MEQ in 0.9% NS 20 MEQ/1,000 ML IV.SOLN. 125 MEQ IV (22:16)
[2024-03-27 22:24] LABS: Red Blood Cells-Urine 0 SEEN /hpf (0-5); Squamous Epithelial Cells - UA 0-5 SEEN /hpf (5-10); White Blood Cells 0-5 SEEN /hpf (0-5)
--- NOTE | 2024-03-27 23:57 | CT_ITS ---
PROCEDURE: EXTREMITY LOWER WITHOUT CONTRA REASON FOR EXAM: Left knee pain TECHNIQUE: CT without intravenous contrast of the left knee. COMPARISON: None. FINDINGS: Bones: No evidence of fracture. Left total knee arthroplasty. No evidence of loosening. Streak artifact limits evaluation. Joints: Joint space(s) preserved. No subluxation or dislocation. Soft Tissues: Unremarkable. CT/Extremity Lower without Contra IMPRESSION: Left total knee arthroplasty with no acute osseous abnormality or hardware fail ure. One or more dose reduction techniques were used (e.g., Automated exposure contr ol, adjustment of the mA and/or kV according to patient size, use of iterative reconstruction technique). Reading Location: [facility]
[2024-03-28] VITALS (7 sets, daily range): BP systolic 109–134; BP diastolic 59–85; PULSE 96–109; RESP 16–18; TEMP 36.7–36.9; O2SAT 93–97; BMI 36.1
[2024-03-28 00:02] LABS: Erythrocyte Sedimentation Rate 25 mm/hr (0-30)
[2024-03-28 00:05] LABS: Amphetamine Urine NEGATIVE (<1000 ng/mL); Barbiturate Urine VISTA NEGATIVE (< 200 ng/mL); Benzodiazepine Urine VISTA NEGATIVE (< 200 ng/mL); Cocaine Urine VISTA NEGATIVE (< 300 ng/mL); Ecstacy Urine VISTA POSITIVE (< 500 ng/mL); Methadone Urine VISTA NEGATIVE (< 300 ng/mL); Opiates Urine NEGATIVE (< 300 ng/mL); PCP Urine NEGATIVE (< 25 ng/mL); THC Urine VISTA NEGATIVE (< 50 ng/mL); Vista UDS pH Range 5
[2024-03-28] MEDS: levoFLOXacin IV 750 MG/150 ML BAG 100 MG IV ×2 (00:06→22:40)
[2024-03-28] MEDS: DiphenhydrAMINE 50 MG/ML Syringe 25 MG IV ×4 (00:07→20:56)
[2024-03-28 00:20] LABS: Ferritin 422 ng/mL (8-252); Iron 70 ug/dL (50-170); Iron Binding Capacity,Total 138 ug/dL (250-450); Magnesium 1.4 mg/dL (1.6-2.6); PERCENT IRON SATURATION 50.7 % (15.0-55.0); Thyroid Stim Hormone (TSH) 0.315 uIU/mL (0.358-3.740)
[2024-03-28] MEDS: Ketorolac 15 MG/ML Vial IV (00:38)
[2024-03-28] MEDS: Ondansetron 4 MG/2 ML Vial IV ×3 (00:39→21:26)
[2024-03-28 00:45] LABS: Alcohol, Blood (Medical)-Serum < 3.0 mg/dL
[2024-03-28 00:54] LABS: Lactic Acid 1.1 mmol/L (0.4-1.9)
[2024-03-28 01:36] LABS: Free T3 1.8 pg/mL (2.18-3.98); T4 Free Direct 2.37 ng/dL (0.76-1.46)
[2024-03-28] MEDS: Magnesium Sulfate 2 GM in Dextrose 5%-Water (100mL Bag) 100 ML IV (02:33)
[2024-03-28] MEDS: HYDROmorphone 1 MG/ML Syringe IV (03:22)
[2024-03-28] MEDS: metroNIDAZOLE 500 MG/100 ML BAG 100 MG IV ×3 (05:01→20:58)
[2024-03-28] MEDS: KCL 20MEQ in 0.9% NS 20 MEQ/1,000 ML IV.SOLN. 125 MEQ IV (05:01)
[2024-03-28 05:46] LABS: Absolute Lymphocyte Count 0.47 X10^3/uL (0.83-4.51); Absolute Neutrophil Count 2.3 X10^3/uL (2.0-7.7); Basophil# 0.01 X10^3/uL; Basophil% 0.3 % (0-1); Hematocrit 25.7 % (37-47); Hemoglobin 8.4 g/dL (12.0-15.0); Lymphocyte # 0.47 X10^3/ul (0.83-4.51); Lymphocyte % 15.7 % (19-41); Mean Corp Hgb Conc 32.7 g/dL (32-36); Mean Corpuscular Hgb 29.2 pg (27.0-32.0); Mean Corpuscular Volume 89.2 fL (81-99); Mean Platelet Vol. 10.2 fl (6.2-12.0); Monocyte# 0.19 X10^3/uL; Monocyte% 6.3 % (0-10); NRBC Flagged by Analyzer 0 % (0-5); Neutrophil # 2.31 X10^3/uL (2.7-7.7); POSITIVE DIFFERENTIAL YES; Platelet Count 312 K/mm3 (150-450); RBC Distribution Width CV 15.3 % (11.6-14.6); Red Blood Count 2.88 M/mm3 (4.2-5.4)
[2024-03-28 06:10] LABS: ALB/GLOB Ratio 0.5 RATIO (0.9-2.4); AST(SGOT) 136 U/L (15-37); Alanine Aminotransfer ALT/SGPT 41 U/L (13-56); Albumin, Serum 1.9 g/dL (3.2-5.0); Alkaline Phosphatase 175 U/L (45-117); Anion Gap 10 (5-15); BUN 1 mg/dL (7-18); BUN/Creat Ratio 1.3 RATIO (10-20); Calcium,Total 8.2 mg/dL (8.5-10.1); Chloride 104 mmol/L (98-107); Creatinine, Serum 0.75 mg/dL (0.55-1.02); EST Glomerular Filtration Rate 82 mL/min (>60); Est Glom Filt Rate - Afr Amer 99 mL/min (>60); Estimated Creatinine Clearance 81.33 ml/min; Globulin 3.7 g/dL (2.2-4.2); Glucose 107 mg/dL (74-106); Phosphorus 3.9 mg/dL (2.5-4.9); Potassium 3.5 mmol/L (3.5-5.1); Protein, Total 5.6 g/dL (6.4-8.2); Sodium Level 137 mmol/L (136-145)
[2024-03-28 06:25] LABS: Differential Indicated SCAN CRITERIA MET
--- NOTE | 2024-03-28 08:25 | PN.HOSP_ITS ---
Reason for Visit Reason for Visit: Diagnoses Unspecified protein-calorie malnutrition (03/27/24) Obesity, unspecified (03/27/24) Hypomagnesemia (03/27/24) Acidosis, unspecified (03/27/24) Hypokalemia (03/27/24) Other disorders of plasma-protein metabolism, not elsewhere classified (03/27/24) Metabolic encephalopathy (03/27/24) Acute sphenoidal sinusitis, unspecified (03/27/24) Noninfective gastroenteritis and colitis, unspecified (03/27/24) Unspecified abdominal pain (03/27/24) Nausea with vomiting, unspecified (03/27/24) Subjective Subjective Still with abdominal pain. No further nausea and vomiting. Objective Data Objective Data Vital Signs: Vital Signs Temp Pulse Resp BP Pulse Ox O2 Del Method 36.7 C 102 H 16 109/59 L 97 Room Air 03/28/24 05:08 03/28/24 05:08 03/28/24 05:08 03/28/24 05:08 03/28/24 05:08 03/28/24 05:08 Oxygen Delivery Method Room Air Weight: 98.2 kg Body Mass Index (BMI) 36.1 Intake & Output: Intake and Output for Last 24 Hours 03/26/24 03/27/24 03/28/24 23:59 23:59 23:59 Intake Total 1210 / 1210 1497.75 / 1497.75 Output Total 800 / 800 Balance 1210 / 1210 697.75 / 697.75 Lab / Micro Data 03/28/24 05:35 03/28/24 05:35 Labs: Laboratory Results - last 24 hr 03/27/24 17:10: WBC 4.8, RBC 3.09 L, Hgb 9.1 L, Hct 28.0 L, MCV 90.6, MCH 29.4, MCHC 32.5, RDW Std Deviation 51.2 H, RDW Coeff of Vicki 15.5 H, Plt Count 312, MPV 10.8, Immature Gran % (Auto) 0.400, Neut % (Auto) 50.9, Lymph % (Auto) 25.5, M krista % (Auto) 21.1 H, Eos % (Auto) 1.5, Baso % (Auto) 0.6, Absolute Neuts (auto) 2.4, Absolute Lymphs (auto) 1.21, Nucleated RBC % 0, ESR 25, Sodium 135 L, P otassium 3.1 L, Chloride 101, Carbon Dioxide 25.0, Anion Gap 9, BUN 1 L, Creatinine 0.70, Estim Creat Clear Calc 82.17, Est GFR (MDRD) Af Amer 108, Est GFR (MDRD) Non-Af 89, BUN/Creatinine Ratio 1.4 L, Glucose 95, Lactic Acid 2.3 H* , Calcium 8.3 L, Magnesium 1.4 L, Iron 70, TIBC 138 L, Iron Saturation 50.7, F erritin 422 H, Total Bilirubin 0.50, AST 28, ALT 25, Alkaline Phosphatase 156 H, Troponin I High Sens 13, Total Protein 5.6 L, Albumin 2.0 L, Globulin 3.6, A lbumin/Globulin Ratio 0.6 L, Folate 3.10, TSH 0.315 L 03/27/24 21:45: Urine Color Yellow, Urine Clarity Clear, Urine pH 6.0, Ur Specific [place] 1.010, Urine Protein Negative, Urine Glucose (UA) Normal, Urine Ketones Negative, Urine Occult Blood Negative, Urine Nitrite Negative, Urine Bilirubin Negative, Urine Urobilinogen Normal, Ur Leukocyte Esterase 100 H, Urine RBC 0 SEEN, Urine WBC 0-5 SEEN, Ur Squamous Epith Cells 0-5 SEEN, Urine Bacteria 0 SEEN, Urine Mucus 0 SEEN, Urine Opiates Screen NEGATIVE, Urine Methadone Screen NEGATIVE, Ur Barbiturates Screen NEGATIVE, Ur Phencyclidine Scrn NEGATIVE, Ur Amphetamines Screen NEGATIVE, MDMA (Ecstasy) Screen POSITIVE H , U Benzodiazepines Scrn NEGATIVE, Urine Cocaine Screen NEGATIVE, U Cannabinoids Screen NEGATIVE, Ur Drug Screen Comment 03/28/24 00:11: Lactic Acid 1.1, Free T4 2.37 H, Free T3 pg/dL 1.8 L, Ethyl Alcohol < 3.0, TORY-1 Antibody TNP 03/28/24 00:11: TORY-1 Antibody Cancelled, SS-A/Ro IgG Antibody TNP 03/28/24 00:11: SS-A/Ro IgG Antibody Cancelled, SS-B/La IgG Antibody TNP 03/28/24 00:11: SS-B/La IgG Antibody Cancelled, Sm (Quan) Antibody TNP 03/28/24 00:11: Sm (Quan) Antibody Cancelled, SUPERVISOR OF OPERATIONS Antibody TNP 03/28/24 00:11: SUPERVISOR [employer]PERATIONS Antibody Cancelled, Scl-70 Scleroderma Ab Cancelled, Double Strand DNA Ab Cancelled, Antichromatin Antibodies TNP 03/28/24 00:11: Antichromatin Antibodies Cancelled, Centromere B Antibody TNP 03/28/24 00:11: Centromere B Antibody Cancelled 03/28/24 05:35: WBC 3.0 L, RBC 2.88 L, Hgb 8.4 L, Hct 25.7 L, MCV 89.2, MCH 29.2, MCHC 32.7, RDW Std Deviation 50.0 H, RDW Coeff of Vicki 15.3 H, Plt Count 312, MPV 10.2, Immature Gran % (Auto) 0.700, Neut % (Auto) 77.0 H, Lymph % (Auto) 15.7 L, [place] % (Auto) 6.3, Eos % (Auto) 0.0, Baso % (Auto) 0.3, Absolute Neuts (auto) 2.3, Absolute Lymphs (auto) 0.47 L, Nucleated RBC % 0, Diff Path Review June, Sodium 137, Potassium 3.5, Chloride 104, Carbon Dioxide 22.0, Anion Gap 10, BUN 1 L, Creatinine 0.75, Estim Creat Clear Calc 81.33, Est GFR (MDRD) Af Amer 99, Est GFR (MDRD) Non-Af 82, BUN/Creatinine Ratio 1.3 L, Glucose 107 H, Calcium 8.2 L, Phosphorus 3.9, Total Bilirubin 0.70, AST 136 H, ALT 41, A lkaline Phosphatase 175 H, Total Protein 5.6 L, Albumin 1.9 L, Globulin 3.7, A lbumin/Globulin Ratio 0.5 L Radiography Diagnostic Testing: Radiology Impression Abdomen/Pelvis CT 03/27/24 16:23 IMPRESSION: 1. Colonic wall thickening involving the transverse, descending and sigmoid colon, possibly due to acute infectious or inflammatory colitis. 2. Dilated small bowel loops are present in the right lower quadrant without a transition point, likely due to ileus. 3. Prior right-sided colonic resection, cholecystectomy and hysterectomy. 4. Trace bilateral pleural effusions with bibasilar atelectasis [facility] 03/27/24 18:13 IMPRESSION: 1. No acute intracranial abnormality. 2. Acute sphenoid sinusitis. Reading Location: [facility] Lower Extremity CT 03/27/24 23:57 IMPRESSION: Left total knee arthroplasty with no acute osseous abnormality or hardware failure. One or more dose reduction techniques were used (e.g., Automated exposure control, adjustment of the mA and/or kV according to patient size, use of iterative reconstruction technique). [facility] Physical Exam Const alert and no apparent distress Constitutional Narrative: playing on her phone during entire encounter. Resp normal respiratory effort, no retractions, no use of accessory muscles and clear to auscultation bilaterally Cardio regular rate, regular rhythm, S1 normal heart sound and S2 normal heart sound GI non-tender and non-distended Neuro Sensorium / Orientation: awake, alert, oriented to person and oriented to place Psych affect normal Assessment & Plan Assessment/Plan (1) Colitis: (2) Chronic diarrhea: (3) Acute metabolic encephalopathy: PLAN: Plan Colitis * Had similar symptoms during earlier hospitalization this month. Enteric pathogens and C. diff negative. CT on the was unremarkable. * CT from 03/27 showed Colonic wall thickening of the trasverse, descending and sigmoid colon. Infectious v inflammatory. * On empiric abx with levofloxacin and metronidazole. SUDEEP, ANCA, CRP ordered. Recheck enteric pathogen and Cdiff. GI consulted. Nausea and vomiting * has been an ongoing problem. Unclear if this is related to the colitis or something else. * She had a gastric emptying study on 03/11/2024, that was limited as she could only ingest 25% of the food, but at 60 minutes appeared unremarkable. * continue w PRN antiemetics. LE edema * probably due to 3rd spacing from protein calorie malnutrition. * continue furosemide Hyperthyroidism * low TSH and elevated FT4. Hold levothyroxine for now. Encephalopathy * head CT negative * hold potentiating medications * MDMA on UDS, likely false positive from antidepression medications. Chronic conditions: * obesity class II: complicates care and recovery * Depression: hold meds until more alert. DVT prophylaxis - SCD's only at this time with hopeful impending colonoscopy this admission. Charges/Coding Visit Charges Inpatient E&M: 82713 Subs Hosp L2
[2024-03-28] MEDS: oxyCODONE 5 MG Tablet PO ×2 (09:50→20:56)
[2024-03-28] MEDS: 0.9% Normal Saline (100mL Bag) 100 ML 15 ML IV (13:47)
[2024-03-28] MEDS: 0.9% Saline Lock 10 ML Syringe IV ×2 (13:48→14:28)
--- NOTE | 2024-03-28 18:52 | CON.PCM.GI_ITS ---
HPI Consult Data Date of Consult: 03/28/24 HPI Narrative Reason for Consultation: diarrhea HPI Narrative: ROSALINDA VALE, is a 63 F with a history of small bowel ischemia with perforation, history of exploratory laparotomy (09/2023). She has no previous history of hypercoagulable disorder. She has no family history of hypercoagulable disorder. She has no history of cardiac arrhythmia. She was here approximately a week ago for worsening nausea vomiting. No etiology was found. She presented back to the emergency room on 03/27/2024 complaining of continued nausea, vomiting, abdominal pain and nonbloody diarrhea with confusion. She reports ongoing nausea and vomiting with bilious emesis complicated by diffuse abdominal pain that is unrelenting. She states she has chronic nonbloody diarrhea since her surgery. A review of her records revealed pathology specimen obtained from Laparotomy with Right Hemicolectomy (done for small bowel perforation) from January 2024 showed segments of small and large bowel with extensive area of ischemic changes and hemorrhagic infarction involving mucosa and submucosa with small bowel and colonic donut. She denies associated fever, chills, dysuria, chest pain, shortness of breath, headache or focal motor neurologic deficits but she does admit to confusion. In the ER she was noted to have CT evidence of colonic wall thickening involving the transverse, descending and sigmoid colon possibly due to Acute Infectious or Inflammatory Colitis with dilated small bowel loops in the Right lower quadrant without a transition point likely due to Ileus with evidence of a prior Right- sided colonic resection. It also displayed cholecystectomy and hysterectomy along with trace bilateral pleural effusions with bibasilar atelectasis plus she underwent head CT which revealed no acute intracranial abnormality but did show an Acute Sphenoid Sinusitis complicated by laboratory evidence of Lactic Acidosis of 2.3 mmol/L plus Hypokalemia of 3.1 mmol/L and Hypomagnesemia of 1.4 mg/dL. [facility] Medical History Obesity (BMI 30-39.9) Nausea and vomiting Anemia No natural teeth Wears glasses Depression Anxiety Walker as ambulation aid Arthritis Low iron Excessive bleeding Restless legs Heartburn Shortness of breath on exertion Former smoker History of echocardiogram Hypoalbuminemia Suspected inflammatory bowel disease Elevated troponin Heart failure Gastroenteritis Diarrhea Small bowel perforation Small bowel ischemia Trigger finger, left ring finger Trigger finger, right ring finger Right carpal tunnel syndrome Bilateral carpal tunnel syndrome Hypothyroidism Anxiety and depression High cholesterol Hypertension Home Medications ?Medication ?Instructions ?Recorded ?Last Taken ?Type buspirone 30 mg tablet 15 mg PO BID anxiety 4 Unknown History tizanidine 4 mg tablet 4 mg PO TID muscle relaxer 0 04/28/23 Unknown History trazodone 100 mg tablet 100 mg PO QHS sleep 04/28/23 Unknown History venlafaxine 150 mg 150 mg PO QDAY mental health 04/28/23 Unknown History capsule,extended release 24 hr bupropion HCl 200 mg tablet,12 hr 200 mg PO DAILY [facility] 11/19/23 Unknown History sustained-release melatonin 5 mg capsule 5 mg PO QHS sleep 11/19/23 U nknown History levothyroxine 125 mcg tablet 125 mcg PO DAILY@0600 thy roid #0 11/23/23 Unknown Rx tabs mecobalamin (vitamin B12) 1,000 1,000 mcg PO QDAY ludivina min 12/31/23 Unknown History mcg chewable tablet (B12 Active) pantoprazole 40 mg tablet,delayed 40 mg PO BID reflux 12/31/23 Unknown History release (Protonix) potassium chloride 20 mEq 20 meq PO BID electrolyte Unknown History tablet,extended release fexofenadine 180 mg tablet 180 mg PO DAILY allergies 0 03/10/24 Unknown History ([facility]) rosuvastatin 5 mg tablet 5 mg PO QHS cholesterol 02/11 11/04 Unknown History verapamil 240 mg tablet,extended 240 mg PO DAILY blood pressure #30 03/11/24 Unknown Rx release tabs Held on 03/25/24. Instructions: Resume on 04/08/24. calcium carbonate (Tums) 400 mg PO Q4H PRN heartburn 03/23/24 Unknown History furosemide 20 mg tablet 20 mg PO DAILY water pill 30 days 03/25/24 Unknown Rx #30 tabs midodrine 10 mg tablet 10 mg PO TIDCM blood pressur e 15 03/25/24 Unknown Rx days #45 tabs Allergy/AdvReac Type Severity Reaction Status Date / Time codeine Allergy Mild Vomiting Verified 03/27/24 16:06 cefaclor (From [facility]) Allergy Anaphylaxis Verified 03/27/24 16:06 chlorhexidine Allergy Hives Verified 03/27/24 16:06 paroxetine (From Paxil) Allergy Anaphylaxis Verified 03/27/24 16:06 Penicillins Allergy Anaphylaxis Verified 03/27/24 16:06 Sulfa (Sulfonamide Allergy Anaphylaxis Verified 03/27/24 16:06 Antibiotics) magnesium sulfate AdvReac Severe Nausea/Vom/ Verified 03/27/24 16:06 Diarrhea magnesium AdvReac Intermediate nausea/vomi Verified 03/27/24 16:06 ting Family History Mother Heart disease Father Heart disease Surgical History History of carpal tunnel release of both wrists History of exploratory laparotomy S/P TKR (total knee replacement) History of shoulder replacement History of hysterectomy History of cholecystectomy Hx of appendectomy Social History household members: none Smoking Status: Former smoker alcohol intake: never substance use type: does not use Physical Exam Const alert, oriented x3, no apparent distress and healthy appearing General Appearance: cooperative GI normal to inspection, nondistended, normoactive bowel sounds, soft to palpation, non-tender and non-distended Percussion: normal to percussion Rectal Exam: deferred Medical Records Data Medical Nutrition Assessment Dietitian: Malnutrition Criteria Met Start: 03/28/24 13:59 Freq: Status: Active Protocol: Document 03/28/24 15:09 SB (Rec: 03/28/24 15:09 SB [id number]) Nutrition Malnutrition Evidence of Yes Malnutrition Exists Malnutrition (severe Chronic ): Evidenced By Suboptimal Energy Intake (Severe),Weight Loss (Severe) Clinical Problem Chronic Disease or Condition Related Malnutrition Etiology severe related to inadequate oral intake and GI surgery Signs/Symptoms as evidenced by 26% unintentional weight loss x 6 months and PO meeting <75% of estimated nutrition needs x 6 months. Status Active Problem Recommendation Dietitian Recommend advanced diet as tolerated to liberal regular Recommendations/ diet d/t signs and symptoms of malnutrition. Changes Pt refuses all ONS at this time. Will monitor weight trends, as available. Reviewed and approved by Indiana Carias RD, LD. Lab / Micro Data 03/28/24 05:35 03/28/24 05:35 Labs: Laboratory Results - last 24 hr 03/27/24 17:10: ESR 25, Magnesium 1.4 L, Iron 70, TIBC 138 L, Iron Saturation 50.7, Ferritin 422 H, Folate 3.10, TSH 0.315 L 03/27/24 21:45: Urine Color Yellow, Urine Clarity Clear, Urine pH 6.0, Ur Specific [place] 1.010, Urine Protein Negative, Urine Glucose (UA) Normal, Urine Ketones Negative, Urine Occult Blood Negative, Urine Nitrite Negative, Urine Bilirubin Negative, Urine Urobilinogen Normal, Ur Leukocyte Esterase 100 H, Urine RBC 0 SEEN, Urine WBC 0-5 SEEN, Ur Squamous Epith Cells 0-5 SEEN, Urine Bacteria 0 SEEN, Urine Mucus 0 SEEN, Urine Opiates Screen NEGATIVE, Urine Methadone Screen NEGATIVE, Ur Barbiturates Screen NEGATIVE, Ur Phencyclidine Scrn NEGATIVE, Ur Amphetamines Screen NEGATIVE, MDMA (Ecstasy) Screen POSITIVE H , U Benzodiazepines Scrn NEGATIVE, Urine Cocaine Screen NEGATIVE, U Cannabinoids Screen NEGATIVE, Ur Drug Screen Comment 03/28/24 00:11: Lactic Acid 1.1, Free T4 2.37 H, Free T3 pg/dL 1.8 L, Ethyl Alcohol < 3.0, TORY-1 Antibody TNP 03/28/24 00:11: TORY-1 Antibody Cancelled, SS-A/Ro IgG Antibody TNP 03/28/24 00:11: SS-A/Ro IgG Antibody Cancelled, SS-B/La IgG Antibody TNP 03/28/24 00:11: SS-B/La IgG Antibody Cancelled, Sm (Quan) Antibody TNP 03/28/24 00:11: Sm (Quan) Antibody Cancelled, PAPERBOARD BOX MAKER Antibody TNP 03/28/24 00:11: PAPERBOARD BOX MAKER Antibody Cancelled, Scl-70 Scleroderma Ab Cancelled, Double Strand DNA Ab Cancelled, Antichromatin Antibodies TNP 03/28/24 00:11: Antichromatin Antibodies Cancelled, Centromere B Antibody TNP 03/28/24 00:11: Centromere B Antibody Cancelled 03/28/24 05:35: WBC 3.0 L, RBC 2.88 L, Hgb 8.4 L, Hct 25.7 L, MCV 89.2, MCH 29.2, MCHC 32.7, RDW Std Deviation 50.0 H, RDW Coeff of Vicki 15.3 H, Plt Count 312, MPV 10.2, Immature Gran % (Auto) 0.700, Neut % (Auto) 77.0 H, Lymph % (Auto) 15.7 L, [place] % (Auto) 6.3, Eos % (Auto) 0.0, Baso % (Auto) 0.3, Absolute Neuts (auto) 2.3, Absolute Lymphs (auto) 0.47 L, Nucleated RBC % 0, Diff Path Review May , Sodium 137, Potassium 3.5, Chloride 104, Carbon Dioxide 22.0, Anion Gap 10, BUN 1 L, Creatinine 0.75, Estim Creat Clear Calc 81.33, Est GFR (MDRD) Af Amer 99, Est GFR (MDRD) Non-Af 82, BUN/Creatinine Ratio 1.3 L, Glucose 107 H, Calcium 8.2 L, Phosphorus 3.9, Total Bilirubin 0.70, AST 136 H, ALT 41, A lkaline Phosphatase 175 H, Total Protein 5.6 L, Albumin 1.9 L, Globulin 3.7, A lbumin/Globulin Ratio 0.5 L Imaging Radiology Impression Abdomen/Pelvis CT 03/27/24 16:23 IMPRESSION: 1. Colonic wall thickening involving the transverse, descending and sigmoid colon, possibly due to acute infectious or inflammatory colitis. 2. Dilated small bowel loops are present in the right lower quadrant without a transition point, likely due to ileus. 3. Prior right-sided colonic resection, cholecystectomy and hysterectomy. 4. Trace bilateral pleural effusions with bibasilar atelectasis Reading Location: [facility] Brain CT 03/27/24 18:13 IMPRESSION: 1. No acute intracranial abnormality. 2. Acute sphenoid sinusitis. Reading Location: [facility] Lower Extremity CT 03/27/24 23:57 IMPRESSION: Left total knee arthroplasty with no acute osseous abnormality or hardware failure. One or more dose reduction techniques were used (e.g., Automated exposure control, adjustment of the mA and/or kV according to patient size, use of iterative reconstruction technique). Reading Location: [facility] Assessment & Plan Assessment/Plan (1) Colitis: (2) Chronic diarrhea: (3) Acute metabolic encephalopathy: PLAN: Plan 63-year-old with recent history of acute mesenteric ischemia with perforation status post small bowel resection and right hemicolectomy. Current CT scan abdomen pelvis that show inflammation in the transverse, descending and sigmoid colon with a differential diagnosis being infectious versus inflammatory. The CT scan is different than her previous CT scan she had a week ago.While patients with inflammatory bowel disease are known to be at increased risk of venous thromboembolism. Less is known about the risk of arterial embolism. Thromboembolic occlusion of the superior mesenteric artery is recognized to be a common cause of acute mesenteric ischemia . Despite this there have been few reported cases of superior mesenteric artery thromboembolism related to IBD reported in the literature and most of these relate to chronic ischemia and none of the reported cases resulted in multi-organ infarction. There is one meta- analysis which looked at thromboembolic events and cardiovascular mortality in IBD . It found that the overall risk of venous thromboembolism in IBD patients was increased almost double that of the general population. Comparatively a significant increased risk of mesenteric ischemia was observed in IBD patients compared to the general population. The causes of acute mesenteric ischemia are usually secondary to an underlying cardiac abnormality either structural or electrophysiological. The other common cause is from any process that increases the general risk of arterial thrombosis including smoking, hypertension, hypercholesterolemia, peripheral vascular atherosclerosis, advanced age or chronic inflammatory disease affecting the vascular system such as vasculitis. The segment of bowel affected by CD is also particularly susceptible to ischemia given the greater metabolic demand of the inflamed segment. It has previously been noted that mesenteric blood flow is increased in CD . Hence, any alteration in the supply of oxygenated blood to affected bowel could result in acute ischemia. The mechanism leading to ischemia may result from either unstable thrombus rupture secondary to increased arterial wall stress or chronic ischemia secondary to the build-up of plaque in those with multiple cardiovascular risk factors. She does risk of cardiovascular disease due to atherosclerosis seen on her CT scan. I will order hypercoagulable workup along with workup for inflammatory bowel disease. She has agreed to undergo colonoscopy. Hopefully we will see any etiology to her symptoms. I do not know how much small bowel was removed during her recent surgery so she would need to have more than 100 cm of small bowel removed to have short gut syndrome. And that is using the ileum greater than the jejunum. Charges/Coding Visit Charges Inpatient E&M: 53211 Init Hosp L3
[2024-03-28] MEDS: Bisacodyl 5 MG Tablet 20 MG PO (20:00)
[2024-03-28] MEDS: Polyethylene Glycol 3350 BOWEL PREP PO (20:00)
[2024-03-28 20:51] LABS: Erythrocyte Sedimentation Rate 27 mm/hr (0-30)
[2024-03-28] MEDS: Pantoprazole Sodium 40 MG in 0.9% Normal Saline (100mL MB+) 100 ML 330 MG IV (20:56)
[2024-03-28] MEDS: proMETHazine 25 MG/ML Syringe 12.5 MG IM (22:45)
[2024-03-28] MEDS: MELATONIN 10 MG TABLET 5 MG PO (23:22)
[2024-03-28] MEDS: busPIRone 15 MG TABLET PO (23:22)
[2024-03-29] VITALS (12 sets, daily range): BP systolic 103–159; BP diastolic 53–130; PULSE 73–113; RESP 16–20; TEMP 36.3–37.1; O2SAT 92–98; BMI 36.4
[2024-03-29] MEDS: 0.9% Normal Saline (100mL Bag) 100 ML 15 ML IV (02:53)
[2024-03-29] MEDS: oxyCODONE 5 MG Tablet PO (04:17)
[2024-03-29] MEDS: Ondansetron 4 MG/2 ML Vial IV ×2 (04:17→21:00)
[2024-03-29] MEDS: metroNIDAZOLE 500 MG/100 ML BAG 100 MG IV ×3 (05:04→20:59)
[2024-03-29] MEDS: Levothyroxine 125 MCG Tablet PO (05:06)
[2024-03-29] MEDS: tiZANidine HCl 2 MG Tablet 4 MG PO ×3 (05:07→21:01)
[2024-03-29 05:26] LABS: Absolute Lymphocyte Count 1.01 X10^3/uL (0.83-4.51); Absolute Neutrophil Count 5.6 X10^3/uL (2.0-7.7); Basophil# 0.01 X10^3/uL; Basophil% 0.1 % (0-1); Hematocrit 26.7 % (37-47); Hemoglobin 8.7 g/dL (12.0-15.0); Lymphocyte # 1.01 X10^3/ul (0.83-4.51); Lymphocyte % 13.7 % (19-41); Mean Corp Hgb Conc 32.6 g/dL (32-36); Mean Corpuscular Hgb 29.2 pg (27.0-32.0); Mean Corpuscular Volume 89.6 fL (81-99); Mean Platelet Vol. 9.7 fl (6.2-12.0); Monocyte# 0.73 X10^3/uL; Monocyte% 9.9 % (0-10); NRBC Flagged by Analyzer 0 % (0-5); Neutrophil # 5.55 X10^3/uL (2.7-7.7); Neutrophil % 75.6 % (47-70); Platelet Count 405 K/mm3 (150-450); RBC Distribution Width CV 15.7 % (11.6-14.6); RBC Distribution Width SD 51.8 fl (35.1-43.9); Red Blood Count 2.98 M/mm3 (4.2-5.4); White Blood Count 7.4 K/mm3 (4.4-11.0)
[2024-03-29 05:50] LABS: ALB/GLOB Ratio 0.6 RATIO (0.9-2.4); AST(SGOT) 66 U/L (15-37); Alanine Aminotransfer ALT/SGPT 34 U/L (13-56); Albumin, Serum 2.2 g/dL (3.2-5.0); Alkaline Phosphatase 158 U/L (45-117); Anion Gap 10 (5-15); BUN 1 mg/dL (7-18); BUN/Creat Ratio 1.2 RATIO (10-20); Calcium,Total 8.6 mg/dL (8.5-10.1); Chloride 105 mmol/L (98-107); Creatinine, Serum 0.82 mg/dL (0.55-1.02); EST Glomerular Filtration Rate 74 mL/min (>60); Est Glom Filt Rate - Afr Amer 90 mL/min (>60); Estimated Creatinine Clearance 79.77 ml/min; Globulin 3.4 g/dL (2.2-4.2); Glucose 113 mg/dL (74-106); Magnesium 1.9 mg/dL (1.6-2.6); Phosphorus 2.7 mg/dL (2.5-4.9); Potassium 3.4 mmol/L (3.5-5.1); Protein, Total 5.6 g/dL (6.4-8.2); Sodium Level 137 mmol/L (136-145)
[2024-03-29 08:20] LABS: Vitamin B12 1416 pg/mL (211-911)
[2024-03-29] MEDS: Venlafaxine XR 150 MG Capsule PO (08:35)
[2024-03-29] MEDS: Pantoprazole Sodium 40 MG Tablet PO ×2 (08:35→21:00)
[2024-03-29] MEDS: busPIRone 15 MG TABLET PO ×2 (08:35→21:01)
[2024-03-29] MEDS: Loratadine 10 MG Tablet PO (08:35)
[2024-03-29] MEDS: buPROPion (SR) 100 MG TABLET.SA 200 MG PO (08:35)
[2024-03-29] MEDS: Cyanocobalamin 500 MCG Tablet 1000 MCG PO (08:36)
[2024-03-29] MEDS: Furosemide 40 MG Tablet PO (08:38)
--- NOTE | 2024-03-29 12:09 | PN.HOSP_ITS ---
Reason for Visit Reason for Visit: Diagnoses Unspecified protein-calorie malnutrition (03/27/24) Obesity, unspecified (03/27/24) Hypomagnesemia (03/27/24) Acidosis, unspecified (03/27/24) Hypokalemia (03/27/24) Other disorders of plasma-protein metabolism, not elsewhere classified (03/27/24) Metabolic encephalopathy (03/27/24) Acute sphenoidal sinusitis, unspecified (03/27/24) Noninfective gastroenteritis and colitis, unspecified (03/27/24) Unspecified abdominal pain (03/27/24) Nausea with vomiting, unspecified (03/27/24) Subjective Subjective Saw patient at bedside this morning. Patient had completed the majority of her colonoscopy prep but was unsure if her bowel movements are clear. She continued to have significant abdominal pain and discomfort along with some nausea when I saw her. Stated this was similar to on admission. Denied any fevers or chills. No other new concerns this morning. Objective Data Objective Data Vital Signs: Vital Signs Temp Pulse Resp BP Pulse Ox O2 Del Method 98.2 F 79 16 103/65 92 Room Air 03/29/24 11:09 03/29/24 11:09 03/29/24 11:09 03/29/24 11:09 03/29/24 11:09 03/29/24 11:09 Oxygen Delivery Method Room Air Weight: 99.2 kg Body Mass Index (BMI) 36.4 Intake & Output: Intake and Output for Last 24 Hours 03/27/24 03/28/24 03/29/24 23:59 23:59 23:59 Intake Total 1210 / 1210 3627.75 / 3627.75 350 / 350 Output Total 1450 / 1450 100 / 100 Balance 1210 / 1210 2177.75 / 2177.75 250 / 250 Medical Nutrition Assessment Dietitian: Malnutrition Criteria Met Start: 03/28/24 13:59 Freq: Status: Active Protocol: Document 03/28/24 15:09 SB (Rec: 03/28/24 15:09 SB [id number]) Nutrition Malnutrition Evidence of Yes Malnutrition Exists Malnutrition (severe Chronic ): Evidenced By Suboptimal Energy Intake (Severe),Weight Loss (Severe) Clinical Problem Chronic Disease or Condition Related Malnutrition Etiology severe related to inadequate oral intake and GI surgery Signs/Symptoms as evidenced by 26% unintentional weight loss x 6 months and PO meeting <75% of estimated nutrition needs x 6 months. Status Active Problem Recommendation Dietitian Recommend advanced diet as tolerated to liberal regular Recommendations/ diet d/t signs and symptoms of malnutrition. Changes Pt refuses all ONS at this time. Will monitor weight trends, as available. Reviewed and approved by Indiana Carais RD, LD. Lab / Micro Data 03/30/24 05:52 03/30/24 05:52 Labs: Laboratory Results - last 24 hr 03/28/24 00:11: Vitamin B12 1416 H 03/28/24 05:35: ESR 27, C-React Prot Ext Range 34.30 H 03/29/24 05:12: WBC 7.4, RBC 2.98 L, Hgb 8.7 L, Hct 26.7 L, MCV 89.6, MCH 29.2, MCHC 32.6, RDW Std Deviation 51.8 H, RDW Coeff of Vicki 15.7 H, Plt Count 405, MPV 9.7, Immature Gran % (Auto) 0.700, Neut % (Auto) 75.6 H, Lymph % (Auto) 13.7 L, [place] % (Auto) 9.9, Eos % (Auto) 0.0, Baso % (Auto) 0.1, Absolute Neuts (auto) 5.6, Absolute Lymphs (auto) 1.01, Nucleated RBC % 0, Sodium 137, Potassium 3.4 L , Chloride 105, Carbon Dioxide 22.0, Anion Gap 10, BUN 1 L, Creatinine 0.82, Estim Creat Clear Calc 79.77, Est GFR (MDRD) Af Amer 90, Est GFR (MDRD) Non-Af 74, BUN/Creatinine Ratio 1.2 L, Glucose 113 H, Calcium 8.6, Phosphorus 2.7, Magnesium 1.9, Total Bilirubin 0.40, AST 66 H, ALT 34, Alkaline Phosphatase 158 H, Total Protein 5.6 L, Albumin 2.2 L, Globulin 3.4, Albumin/Globulin Ratio 0.6 L Physical Exam Const alert, oriented x3 and no apparent distress Constitutional Narrative: Upper middle-aged female, class II obesity, mildly fatigued and somewhat uncomfortable appearing due to ongoing abdominal pain and nausea, otherwise sitting back in bed and conversing normally. General Appearance: cooperative HEENT normocephalic, head/scalp atraumatic, hearing grossly normal bilaterally, nasal mucous membranes and turbinates normal and moist oral mucous membranes Eyes PERRL, EOMs intact bilaterally and conjunctivae normal Neck full ROM Chest inspection of chest normal Resp normal respiratory effort, normal air movement, no use of accessory muscles and clear to auscultation bilaterally Cardio regular rate, regular rhythm, no murmurs and peripheral pulses 2+ throughout GI GI Narrative: Mild to moderate tenderness to palpation diffusely in abdomen. Otherwise mildly distended but soft. Back/Spine normal ROM Extremity normal to inspection and no pedal edema Skin no rashes or lesions noted Neuro moves all extremities and no focal motor deficits Speech: speech normal Psych mental status grossly normal Psych Narrative: Flat affect. Assessment & Plan Assessment/Plan (1) Colitis: PLAN: Plan Patient is a 63-year-old female who presented [facility] ED on 03/27/2024 with worsening abdominal pain and nausea with vomiting. 1. Colitis with chronic diarrhea and nausea with vomiting, recent history of acute mesenteric ischemia with perforation s/p small bowel resection and right hemicolectomy ? GI following. CT abdomen pelvis on admit showed colonic wall thickening involving the transverse, descending and sigmoid colon possibly due to acute infectious or inflammatory colitis; also showed dilated small bowel loops in right lower quadrant without transition point likely due to ileus. Notably the CT was slightly worse in appearance than CT abdomen pelvis from 03/20. C. difficile and enteric panel negative. Colonoscopy on 03/29 showed congestion mucosa in the entire examined colon with stool still noted in the rectum, ascending colon and cecum. Per GI, appears most consistent with collagenous colitis. Will be started on budesonide 9 mg daily. Continue IV antibiotics for now as well. Advance diet as tolerated. Appreciate further GI recommendations. 2. Lower extremity edema ? Suspected secondary to third spacing in setting of protein calorie malnutrition. Continue home Lasix. 3. Hyperthyroidism ? Low TSH and elevated free T4 on admit. Holding Synthroid for now. 4. Acute toxic encephalopathy, improving ? CT head negative on admit. Suspected due to medications, improving on 03/29. Continue home medications for anxiety/depression as noted below. Avoid other sedating medications as able. Chronic medical conditions: ? Class II obesity: BMI 36 on admit. Complicates hospital course, care and prognosis. ? Anxiety/depression: Continue home bupropion, BuSpar, venlafaxine and tizanidine. ? Hypertension: Holding home verapamil. ? Hyperlipidemia: Continue home statin. ? GERD: Continue home PPI. ? Chronic anemia: Hemoglobin stable at baseline around 8-9. DVT prophylaxis: SCDs CODE STATUS: DNR CCA, okay to intubate Expected disposition: TBD Total clinical time spent by myself addressing the patient's medical issues, reviewing all the data, and collaborating with patient's care team: 35 minutes. Charges/Coding Visit Charges Inpatient E&M: 70565 Subs Hosp L2
--- NOTE | 2024-03-29 13:58 | CHAPLAIN ---
Type of Pastoral Visit _x__ Initial Visit ___ Follow-up Visit ___ On-call Visit ___ General Patient Visit ___ Spiritual Assessment ___ Family Conference ___ Bereavement ___ Rapid Response ___ Code Blue ___ Other (describe below) Pastoral Care Referral From _x__ Patient ___ Family ___ Nurse ___ Physician ___ Fast Food Cook ___ Clean Rice Broker ___ Other (describe below) Sacrament/Intervention _x__ Active listening ___ Anointing ___ Quaker ___ Bereavement ___ Communion ___ Nalini exploration ___ ___ Life review _x__ Prayer ___ Reconciliation ___ Sacrament of Sick _x__ Supportive presence ___ Wedding ___ Other (describe below) Pastoral Comments patient admits frustration at being in the hospital so often in recent weeks; pt is hoping that the procedure this afternoon will lead to conclusions about cause of health issues; pt goal is to get some sleep as I've not had much sleep at all in three days; pt welcomes prayer for support
--- NOTE | 2024-03-29 15:12 | NURSING ---
pt to endo
--- NOTE | 2024-03-29 15:36 | CASEMGMT ---
SHWETHA GALLARDO Readmission Note Previous Admission: 03/21/24-03/25/24 Diagnosis: N/V/D, electrolyte disturbances DC Disposition: Home with HHC resuming Current Admission: Admitted 03/27/24 Current Diagnosis: acute inflammatory colitis Pt dc'd 2 days prior from this admission with HHC resuming. Per dc f/u t/c pt HHC had come out to the home after being dc'd, pt had picked up medications and was taking them as ordered. Pt also had her PCP appt scheduled. SHWETHA GALLARDO into pt room, pt is off of the floor at this time. Pt returned to ER with abd pain. CT of abdomen showed colitis. Pt is currently receiving colonoscopy. SHWETHA GALLARDO to follow up tomorrow with pt. DC Plan: SHWETHA LOVE CM to meet with pt tomorrow
--- NOTE | 2024-03-29 15:52 | PRE.ANES_ITS ---
ASA Classification* ASA Classification ASA Classification: 3 Assessment & Plan Anesthesia* Anesthesia Assessment Anesthesia Assessment: Discussed sedation and/or anesthesia options, risks, benefits, and alternatives with patient/parents/legal guardian/POA. Questions invited. The patient/parents/legal guardian/POA seems to understand and agrees to proceed with anesthesia plan. Reviewed the physical assessment, medical history, allergy history and patient home medications list prior to surgery/procedure/anesthetic and documented any changes. Performed airway and anesthesia risk assessments. Anesthesia Type Anesthesia Type: MAC Anesthesia Focused Assessment* Temperature: 98.2 F Pulse Rate: 79 Blood Pressure: 103/65 Respiratory Rate: 16 Pulse Ox: 92 Airway Assessment Mouth opens: >3 cm Mallampati Score: II Focused Labs Anesthesia Preop lab: CBC WBC 7.4 K/mm3 (4.4-11.0) 03/29/24 05:12 03/29/24 RBC 2.98 M/mm3 (4.2-5.4) L 03/29/24 05:12 03/29/24 Hgb 8.7 g/dL (12.0-15.0) L 03/29/24 05:12 03/29/24 Hct 26.7 % (37-47) L 03/29/24 05:12 03/29/24 Plt Count 405 K/mm3 (150-450) 03/29/24 05:12 03/29/24 CHEMISTRY Potassium 3.4 mmol/L (3.5-5.1) L 03/29/24 05:12 03/29/24 Sodium 137 mmol/L (136-145) 03/29/24 05:12 03/29/24 Magnesium 1.9 mg/dL (1.6-2.6) 03/29/24 05:12 03/29/24 Phosphorus 2.7 mg/dL (2.5-4.9) 03/29/24 05:12 03/29/24 BUN 1 mg/dL (7-18) L 03/29/24 05:12 03/29/24 Creatinine 0.82 mg/dL (0.55-1.02) 03/29/24 05:12 03/29/24 Glucose 113 mg/dL (74-106) H 03/29/24 05:12 03/29/24 POC Glucose 77 mg/dL (74-106) 11/20/23 01:33 11/20/23 TSH 0.315 uIU/mL (0.358-3.740) L 03/27/24 17:10 COAG PT 14.0 SECONDS (11.7-14.9) 12/30/23 13:57 Pre-Assessment Diagnosis/Proposed Procedure Planned Operative Procedure(s): Colonoscopy with biopsy Anesthesia 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 When Was Last Pacemaker Check QUESTION #4 FULL TEXT: You/Your Family Experience fever (hyperthermia) with Anesthesia Last Oral Intake Last Oral intake: Last Oral Intake NPO since Meds taken in AM with sips of water? 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 Female HX of Motion Sickness HX of N/V After Surgery Non-Smoker Duration of Surgery greater than 60 minutes Number of Risk Factors PONV Score Height & Weight Height & Weight: Anesthesia: Height & Weight Height 5 ft 5 in 03/28/24 13:50 Weight: 99.2 kg 03/29/24 05:11 Body Mass Index (BMI) 36.4 03/29/24 05:11 Respiratory Assessment Respiratory Assessment - freight elevator erector: Respiratory Tract Infection Hx - freight elevator erector Hx Respiratory Tract Infection No 03/28/24 21:33 STOP Sleep Apnea STOP Sleep Apnea - freight elevator erector: STOP Sleep Apnea - freight elevator erector Hx Hypertension Yes 03/28/24 14:34 Hx Sleep Apnea No 03/27/24 21:24 CPAP No 03/10/24 08:38 BIPAP No 03/10/24 08:38 Do you snore loudly (louder No 03/27/24 21:24 than talking or can be heard Do you often feel tired/ No 03/27/24 21:24 fatigued/ sleepy during daytime? Has anyone observed you stop No 03/27/24 21:24 breathing during sleep? STOP Results Negative 03/27/24 21:24 QUESTION #5 FULL TEXT : Do you snore loudly (louder than talking or can be heard through closed doors)? 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 Specify any problems Hx of Preganancy in last 3 No 03/27/24 21:24 Months Nurse Filling Out Transfusion DREDICK 03/27/24 21:24 & Questions: Date: 03/27/24 03/27/24 21:24 Time: 21:03/27/24 21:24 Patient unable to answer at this time (ie. confused, unrespo /Reproduction History /Reproductive History - freight elevator erector: /Reproductive Hx- freight elevator erector Hx Now No 03/28/24 21:33 Gestational Age (in weeks): EDC: Hx Hx Para Hx Section SAB No 01/14/24 12:48 Active Medications Active Medications: Current Medications Generic Name Dose Route Start Last Admin Trade Name Freq PRN Reason Stop Dose Admin Bupropion HCl 200 mg 03/29/24 10:00 03/29/24 08:35 Bupropion (Sr) 100 Mg Tablet.Sa PO 200 mg DAILY ROHITH Administration Buspirone HCl 15 mg 03/28/24 22:35 03/29/24 08:35 Buspirone 15 Mg Tablet PO 15 mg BID ROHITH Administration Calcium Carbonate 500 mg 03/28/24 22:35 Calcium Carbonate 500 Mg Tablet PO Q4H PRN PRN heartburn Cyanocobalamin 1,000 mcg 03/29/24 10:00 03/29/24 08:36 Cyanocobalamin 500 Mcg Tablet PO 1,000 mcg DAILY ROHITH Administration Diphenhydramine HCl 25 mg 03/27/24 23:37 03/28/24 20:56 Diphenhydramine 50 Mg/Ml Syringe IV 25 mg Q6H PRN PRN Administration ITCHING Furosemide 40 mg 03/29/24 10:00 03/29/24 08:38 Furosemide 40 Mg Tablet PO 40 mg DAILY ROHITH Administration Protocol Hydralazine HCl 5 mg 03/27/24 23:01 Hydralazine 20 Mg/Ml Vial IV Q8H PRN PRN SBP GREATER THAN 160 Protocol Levofloxacin 750 mg in 150 mls @ 100 mls/hr 03/27/24 21:16 03/29/24 00:13 Levaquin Iv IV Infused 2200 ROHITH Infusion Metronidazole 500 mg in 100 mls @ 100 mls/hr 03/27/24 22:00 03/29/24 15:12 Flagyl IV Infused Q8 ROHITH Infusion Sodium Chloride 100 mls @ 15 mls/hr 03/27/24 21:17 03/29/24 10:08 IV Infused .Q6H40M PRN Infusion Saline Flush Sodium Chloride 100 mls @ 15 mls/hr 03/27/24 21:17 IV .Q6H40M PRN Additional IVPB Infusion Ketorolac Tromethamine 15 mg 03/27/24 21:16 03/28/24 00:38 Ketorolac 15 Mg/Ml Vial IV 04/01/24 21:16 15 mg Q6H PRN PRN Administration Pain 1-5/10 or Fever Levothyroxine Sodium 125 mcg 03/29/24 06:00 03/29/24 05:06 Levothyroxine 125 Mcg Tablet PO 125 mcg DAILY@0600 ROHITH Administration Loratadine 10 mg 03/29/24 10:00 03/29/24 08:35 Loratadine 10 Mg Tablet PO 10 mg DAILY ROHITH Administration Melatonin 5 mg 03/28/24 22:35 03/28/24 23:22 Melatonin 10 Mg Tablet PO 5 mg QHS ROHITH Administration Methylprednisolone 40 mg 03/27/24 22:00 03/29/24 14:12 Methylprednisolone 40 Mg/Ml Vial IV 40 mg Q8 ROHITH Administration Ondansetron HCl 4 mg 03/27/24 21:16 03/29/24 04:17 Ondansetron 4 Mg/2 Ml Vial IV 4 mg Q6H PRN PRN Administration NAUSEA/VOMITING Oxycodone HCl 5 mg 03/28/24 08:51 03/29/24 04:17 Oxycodone 5 Mg Tablet PO 5 mg Q4H PRN PRN Administration Pain Score 6-10 Pantoprazole Sodium 40 mg 03/29/24 10:00 03/29/24 08:35 Pantoprazole Sodium 40 Mg Tablet PO 40 mg BID ROHITH Administration Promethazine HCl 12.5 mg 03/27/24 21:16 03/28/24 22:45 Promethazine 25 Mg/Ml Syringe IM 12.5 mg Q4H PRN PRN Administration BREAKTHROUGH NAUSEA Scopolamine HBr 1 patch 03/27/24 22:00 03/27/24 22:10 Scopolamine 1mg/72hr Patch TD 1 patch Q3D@2200 ROHITH Administration Sodium Chloride 10 - 40 ml 03/27/24 21:17 03/28/24 14:28 0.9% Saline Lock 10 Ml Syringe IV 20 ml UD PRN Administration SALINE FLUSH Tizanidine HCl 4 mg 03/29/24 06:00 03/29/24 05:07 Tizanidine Hcl 2 Mg Tablet PO 4 mg TID ROHITH Administration Venlafaxine HCl 150 mg 03/29/24 10:00 03/29/24 08:35 Venlafaxine Xr 150 Mg Capsule PO 150 mg DAILY ROHITH Administration [facility] Medical History Obesity (BMI 30-39.9) Nausea and vomiting Anemia No natural teeth Wears glasses Depression Anxiety Walker as ambulation aid Arthritis Low iron Excessive bleeding Restless legs Heartburn Shortness of breath on exertion Former smoker History of echocardiogram Hypoalbuminemia Suspected inflammatory bowel disease Elevated troponin Heart failure Gastroenteritis Diarrhea Small bowel perforation Small bowel ischemia Trigger finger, left ring finger Trigger finger, right ring finger Right carpal tunnel syndrome Bilateral carpal tunnel syndrome Hypothyroidism Anxiety and depression High cholesterol Hypertension Home Medications ?Medication ?Instructions ?Recorded ?Last Taken ?Type buspirone 30 mg tablet 15 mg PO BID anxiety 4 Unknown History tizanidine 4 mg tablet 4 mg PO TID muscle relaxer 0 04/28/23 Unknown History trazodone 100 mg tablet 100 mg PO QHS sleep 04/28/23 Unknown History venlafaxine 150 mg 150 mg PO QDAY mental health 04/28/23 Unknown History capsule,extended release 24 hr bupropion HCl 200 mg tablet,12 hr 200 mg PO DAILY [facility] 11/19/23 Unknown History sustained-release melatonin 5 mg capsule 5 mg PO QHS sleep 11/19/23 U nknown History levothyroxine 125 mcg tablet 125 mcg PO DAILY@0600 thy roid #0 11/23/23 Unknown Rx tabs mecobalamin (vitamin B12) 1,000 1,000 mcg PO QDAY ludivina min 12/31/23 Unknown History mcg chewable tablet (B12 Active) pantoprazole 40 mg tablet,delayed 40 mg PO BID reflux 12/31/23 Unknown History release (Protonix) potassium chloride 20 mEq 20 meq PO BID electrolyte Unknown History tablet,extended release fexofenadine 180 mg tablet 180 mg PO DAILY allergies 0 03/10/24 Unknown History ([place] Allergy) rosuvastatin 5 mg tablet 5 mg PO QHS cholesterol 02/11 11/04 Unknown History verapamil 240 mg tablet,extended 240 mg PO DAILY blood pressure #30 03/11/24 Unknown Rx release tabs Held on 03/25/24. Instructions: Resume on 04/08/24. calcium carbonate (Tums) 400 mg PO Q4H PRN heartburn 03/23/24 Unknown History furosemide 20 mg tablet 20 mg PO DAILY water pill 30 days 03/25/24 Unknown Rx #30 tabs midodrine 10 mg tablet 10 mg PO TIDCM blood pressur e 15 03/25/24 Unknown Rx days #45 tabs Allergy/AdvReac Type Severity Reaction Status Date / Time codeine Allergy Mild Vomiting Verified 03/27/24 16:06 cefaclor (From Ceclor) Allergy Anaphylaxis Verified 03/27/24 16:06 chlorhexidine Allergy Hives Verified 03/27/24 16:06 paroxetine (From Paxil) Allergy Anaphylaxis Verified 03/27/24 16:06 Penicillins Allergy Anaphylaxis Verified 03/27/24 16:06 Sulfa (Sulfonamide Allergy Anaphylaxis Verified 03/27/24 16:06 Antibiotics) magnesium sulfate AdvReac Severe Nausea/Vom/ Verified 03/27/24 16:06 Diarrhea magnesium AdvReac Intermediate nausea/vomi Verified 03/27/24 16:06 ting Family History Mother Heart disease Father Heart disease Surgical History History of carpal tunnel release of both wrists History of exploratory laparotomy S/P TKR (total knee replacement) History of shoulder replacement History of hysterectomy History of cholecystectomy Hx of appendectomy Social History household members: none Smoking Status: Former smoker alcohol intake: never substance use type: does not use Review of Systems (Anesthesia) ROS Narrative System reviewed and no additional complaints, except as documented.
[2024-03-29 16:09] LABS: Pathologist Review Reviewed
--- NOTE | 2024-03-29 16:15 | COLBX_PTH ---
PATIENT: ROSALINDA VALE LOC: ICU U#:[id number] AGE/SX: 63/F ROOM: [place] [address] RE03/27/[address]: Dr. Rosendo Avalos DO : 1960 BED: 1 DIS: 04/02/2024 SPEC #: [id number] RECD: 03/29/24 18:14 STATUS: JH RECirilo #: [id number] DEBBIE: 03/29/24 16:[address]: Madi Reeder DEPT: SURGICAL PATHOLOGY RECD BY: Joy Delvalle ENTERED: 03/30/24 09:41 SP TYPE: COLON BX OTHR DR: DO Chaparro Alonso MD Dr. David de Lorenzo, DO Dr. Olivier Quintero DO Tissues: A - Ileum, NOS B - COLON BIOPSY Procedures: Surgery Specimen Level IV Comments: @ Ordering doctor for SUIV edited from to @ karla NEFF at 03/30/24 1009 @ Submitting doctor edited from to @ by TAWANDA at 03/30/24 1009 HEADER OPERATION: Colonoscopy, biopsy PRE-OP DIAGNOSIS: Colitis, chronic diarrhea, acute metabolic encephalopathy TISSUE SUBMITTED: A- Terminal ileum biopsy, B- Random colon biopsy MICROSCOPIC DIAGNOSIS A. Terminal ileum, biopsy: Fragments of small intestinal mucosa, no pathologic diagnosis. B. Colon, random biopsy: Fragments of colonic mucosa, no pathologic diagnosis. 03/31/2024 MICROSCOPIC DESCRIPTION Slides are reviewed. GROSS DESCRIPTION A. Received in fixative is one container labeled with the patient's name and designated Terminal ileum biopsy. The specimen consists of multiple irregular fragments of light [place] soft tissue that in aggregate measure 1.4 x 0.3 x 0.2 cm. The specimen is totally submitted in one cassette. B. Received in fixative is one container labeled with the patient's name and designated Random colon biopsy. The specimen consists of multiple irregular fragments of light [place] soft tissue that in aggregate measure 2.6 x 0.3 x 0.2 cm. The specimen is totally submitted in one cassette. 03/30/2024 TC:4 CPT:87622e6
--- NOTE | 2024-03-29 16:34 | PN_ITS ---
Progress Note Patient had 4 subset enemas today after ingesting about 800 mL of prep and 2 stool softeners. Physical Exam Const alert, oriented x3, no apparent distress and healthy appearing General Appearance: cooperative GI normal to inspection, nondistended, normoactive bowel sounds, soft to palpation, non-tender and non-distended Percussion: normal to percussion Rectal Exam: deferred Assessment & Plan Assessment/Plan (1) Colitis: (2) Chronic diarrhea: (3) Acute metabolic encephalopathy: PLAN: Plan 63-year-old with recent history of acute mesenteric ischemia with perforation status post small bowel resection and right hemicolectomy. Current CT scan abdomen pelvis that show inflammation in the transverse, descending and sigmoid colon with a differential diagnosis being infectious versus inflammatory. The CT scan is different than her previous CT scan she had a week ago.While patients with inflammatory bowel disease are known to be at increased risk of venous thromboembolism. Less is known about the risk of arterial embolism. Thromboembolic occlusion of the superior mesenteric artery is recognized to be a common cause of acute mesenteric ischemia . Despite this there have been few reported cases of superior mesenteric artery thromboembolism related to IBD reported in the literature and most of these relate to chronic ischemia and none of the reported cases resulted in multi-organ infarction. There is one meta- analysis which looked at thromboembolic events and cardiovascular mortality in IBD . It found that the overall risk of venous thromboembolism in IBD patients was increased almost double that of the general population. Comparatively a significant increased risk of mesenteric ischemia was observed in IBD patients compared to the general population. The causes of acute mesenteric ischemia are usually secondary to an underlying cardiac abnormality either structural or electrophysiological. The other common cause is from any process that increases the general risk of arterial thrombosis including smoking, hypertension, hypercholesterolemia, peripheral vascular atheros clerosis, advanced age or chronic inflammatory disease affecting the vascular system such as vasculitis. The segment of bowel affected by CD is also particularly susceptible to ischemia given the greater metabolic demand of the inflamed segment. It has previously been noted that mesenteric blood flow is increased in CD . Hence, any alteration in the supply of oxygenated blood to affected bowel could result in acute ischemia. The mechanism leading to ischemia may result from either unstable thrombus rupture secondary to increased arterial wall stress or chronic ischemia secondary to the build-up of plaque in those with multiple cardiovascular risk factors. She does risk of cardiovascular disease due to atherosclerosis seen on her CT scan. I will order hypercoagulable workup along with workup for inflammatory bowel disease. She has agreed to undergo colonoscopy. Hopefully we will see any etiology to her symptoms. I do not know how much small bowel was removed during her recent surgery so she would need to have more than 100 cm of small bowel removed to have short gut syndrome. And that is using the ileum greater than the jejunum. Visit Charges Inpatient E&M: 23088 Subs Hosp L3
--- NOTE | 2024-03-29 17:07 | PCM.POST.ANE ---
Anesthesia: Postop Eval I Current Vital Signs Temperature: 98.8 F Pulse Rate: 79 Blood Pressure: 159/80 Respiratory Rate: 16 Pulse Ox: 96 Assessment Airway patent: Yes Spontaneous unlabored respirations: Yes nausea: No Vomiting: No Anesthesia Complication: No Fluid Hydration Crystalloid volume administer (ml): 30 Total IV fluid infused: 30 Progress Note Anesthesia document: Postop Eval 1 completed: Yes
--- NOTE | 2024-03-29 17:11 | OP.CCLET_ITS ---
03/29/2024 Chaparro Mejia Md Re : Colonoscopy procedure for Migdalia Alvarado Dear Jackie This procedure was performed on Friday, March 29, 2024. My impressions and recommendations are as follows: Impressions : - Congested mucosa in the entire examined colon. Biopsied. - Patent end-to-side ileo-colonic anastomosis, characterized by healthy appearing mucosa. - The examined portion of the ileum was normal. Biopsied. - Stool in the rectum, in the ascending colon and in the cecum. Recommendations : - [facility]. - Resume previous diet today. - Continue present medications. - Await pathology results. Suspected collagenous colitis. Start budesonide 9 mg a day. - Repeat colonoscopy in 1 year to evaluate the response to therapy. My findings are described in the full procedure note, which is enclosed. If I can be of further assistance, please feel free to contact me at . Sincerely, Madi Reeder, 03/29/2024 5:10:45 PM This report has been signed electronically.
--- NOTE | 2024-03-29 17:11 | OP.COLON_ITS ---
Patient Name: Migdalia Alvarado Procedure Date: 03/29/2024 4:02 PM Date of : 1960 Age: 63 Procedure: Colonoscopy Indications: Chronic diarrhea Providers: Madi Reeder DO Referring MD: Christoph Patterson Do Medicines: Monitored Anesthesia Care Patient Profile: This is a 63 year old female. Refer to note in patient chart for documentation of history and physical. Last Colonoscopy: none. The patient's first colonoscopy is today. Complications: No immediate complications. Procedure: Pre-Anesthesia Assessment: - Prior to the procedure, a History and Physical was performed, and patient medications and allergies were reviewed. The patient is competent. The risks and benefits of the procedure and the sedation options and risks were discussed with the patient. All questions were answered and informed consent was obtained. Patient identification and proposed procedure were verified by the physician in the pre-procedure area. Mental Status Examination: alert and oriented. Airway Examination: normal oropharyngeal airway and neck mobility. Respiratory Examination: clear to auscultation. CV Examination: normal. Prophylactic Antibiotics: The patient does not require prophylactic antibiotics. Prior Anticoagulants: The patient has taken no anticoagulant or antiplatelet agents except for NSAID medication. ASA Grade Assessment: II - A patient with mild systemic disease. After reviewing the risks and benefits, the patient was deemed in satisfactory condition to undergo the procedure. The anesthesia plan was to use monitored anesthesia care (MAC). Immediately prior to administration of medications, the patient was re-assessed for adequacy to receive sedatives. The heart rate, respiratory rate, oxygen saturations, blood pressure, adequacy of pulmonary ventilation, and response to care were monitored throughout the procedure. The physical status of the patient was re-assessed after the procedure. After I obtained informed consent, the scope was passed under direct vision. Throughout the procedure, the patient's blood pressure, pulse, and oxygen saturations were monitored continuously. The pediatric colonoscope was introduced through the anus and advanced to the terminal ileum. The colonoscopy was performed without difficulty. The patient tolerated the procedure well. The quality of the bowel preparation was adequate. The terminal ileum, ileocecal valve, appendiceal orifice, and rectum were photographed. Scope In: 4:47:03 PM Scope Withdrawal Time 0 hours 8 minutes 42 seconds Scope Out: 5:02:48 PM Total Procedure Duration Time 0 hours 15 minutes 45 seconds Findings: The perianal and digital rectal examinations were normal. An area of moderately congested mucosa was found in the entire colon. Biopsies were taken with a cold forceps for histology. Verification of patient identification for the specimen was done. Estimated blood loss was minimal. There was evidence of a prior end-to-side ileo-colonic anastomosis in the ascending colon. This was patent and was characterized by healthy appearing mucosa. The terminal ileum appeared normal. Biopsies were taken with a cold forceps for histology. Verification of patient identification for the specimen was done. Estimated blood loss was minimal. Stool was found in the rectum, in the ascending colon and in the cecum. Impression: - Congested mucosa in the entire examined colon. Biopsied. - Patent end-to-side ileo-colonic anastomosis, characterized by healthy appearing mucosa. - The examined portion of the ileum was normal. Biopsied. - Stool in the rectum, in the ascending colon and in the cecum. Recommendation: - [facility] patient [facility]. - Resume previous diet today. - Continue present medications. - Await pathology results. Suspected collagenous colitis. Start budesonide 9 mg a day. - Repeat colonoscopy in 1 year to evaluate the response to therapy. Procedure Code(s): --- Professional --- 21768, Colonoscopy, flexible; with biopsy, single or multiple CPT copyright 2021 [employer]. All rights reserved. The codes documented in this report are preliminary and upon managing manager review may be revised to meet current compliance requirements. Madi Reeder DO 03/29/2024 5:10:45 PM This report has been signed electronically. Number of Addenda: 0 Note Initiated On: 03/29/2024 4:02 PM
--- NOTE | 2024-03-29 17:19 | PCM.PN.BLA ---
Progress Note Follow-up in office: [7 days] Patient does not take antiplatelet therapy Patient does not take anticoagulant therapy New GI related medications for discharge: [Budesonide 9 mg a day and cholestyramine at night] Follow-up procedures needed: [Repeat colonoscopy in the future to determine healing from current medical therapy] Visit Charges Inpatient E&M: 95585 Subs Hosp L2
[2024-03-29] MEDS: 0.9% Saline Lock 10 ML Syringe IV (20:59)
[2024-03-29] MEDS: Ketorolac 15 MG/ML Vial IV (21:01)
[2024-03-29] MEDS: MELATONIN 10 MG TABLET 5 MG PO (21:02)
[2024-03-29] MEDS: Budesonide 3 MG CAPSULE.EC 9 MG PO (21:33)
[2024-03-29] MEDS: levoFLOXacin IV 750 MG/150 ML BAG 100 MG IV (22:55)
[2024-03-29] MEDS: Rosuvastatin Calcium 5 MG Tablet PO (22:56)
[2024-03-29] MEDS: Menthol/Lanolin/Calamine/Znox 113 GM Tube 1 APPLIC TOPICAL (22:56)
[2024-03-30 03:58] VITALS: BMI 36.4
[2024-03-30] MEDS: 0.9% Saline Lock 10 ML Syringe IV (05:15)
[2024-03-30] MEDS: Levothyroxine 125 MCG Tablet PO (05:15)
[2024-03-30] MEDS: metroNIDAZOLE 500 MG/100 ML BAG 100 MG IV (05:15)
[2024-03-30] MEDS: tiZANidine HCl 2 MG Tablet 4 MG PO ×3 (05:15→21:56)
[2024-03-30 05:24] VITALS: BP 103/63; PULSE 63; RESP 16; TEMP 36.5; O2SAT 99
[2024-03-30] MEDS: Cholestyramine/Sucrose 4 GM/PACKET PO ×2 (06:33→16:35)
[2024-03-30 06:35] LABS: Hematocrit 26.4 % (37-47); Hemoglobin 8.2 g/dL (12.0-15.0); Mean Corp Hgb Conc 31.1 g/dL (32-36); Mean Corpuscular Hgb 29.2 pg (27.0-32.0); Mean Platelet Vol. 10.4 fl (6.2-12.0); Platelet Count 288 K/mm3 (150-450); RBC Distribution Width CV 16.2 % (11.6-14.6); RBC Distribution Width SD 56.1 fl (35.1-43.9); Red Blood Count 2.81 M/mm3 (4.2-5.4); White Blood Count 6.1 K/mm3 (4.4-11.0)
[2024-03-30 07:13] LABS: Anion Gap 15 (5-15); BUN 3 mg/dL (7-18); BUN/Creat Ratio 2.5 RATIO (10-20); Calcium,Total 8.3 mg/dL (8.5-10.1); Chloride 102 mmol/L (98-107); Creatinine, Serum 1.22 mg/dL (0.55-1.02); EST Glomerular Filtration Rate 47 mL/min (>60); Est Glom Filt Rate - Afr Amer 57 mL/min (>60); Estimated Creatinine Clearance 53.62 ml/min; Glucose 164 mg/dL (74-106); Potassium 3.2 mmol/L (3.5-5.1); Sodium Level 135 mmol/L (136-145)
[2024-03-30] MEDS: buPROPion (SR) 100 MG TABLET.SA 200 MG PO (08:16)
[2024-03-30] MEDS: Furosemide 40 MG Tablet PO (08:17)
[2024-03-30] MEDS: Pantoprazole Sodium 40 MG Tablet PO ×2 (08:17→21:57)
[2024-03-30] MEDS: Cyanocobalamin 500 MCG Tablet 1000 MCG PO (08:17)
[2024-03-30] MEDS: Potassium Chloride Oral Tablet 20 MEQ 40 MEQ PO (08:17)
[2024-03-30] MEDS: Budesonide 3 MG CAPSULE.EC 9 MG PO (08:18)
[2024-03-30] MEDS: Lactated Ringers 1,000 ML 500 ML IV (08:18)
[2024-03-30] MEDS: Venlafaxine XR 150 MG Capsule PO (08:18)
[2024-03-30] MEDS: Loratadine 10 MG Tablet PO (08:18)
[2024-03-30] MEDS: busPIRone 15 MG TABLET PO ×2 (08:18→21:57)
[2024-03-30 09:18] VITALS: BP 127/82; PULSE 58; RESP 18; TEMP 36.2; O2SAT 97
[2024-03-30 09:42] VITALS: O2SAT 95
--- NOTE | 2024-03-30 10:55 | PCM.PN.HOSP ---
Reason for Visit Reason for Visit: Diagnoses Unspecified protein-calorie malnutrition (03/27/24) Obesity, unspecified (03/27/24) Hypomagnesemia (03/27/24) Acidosis, unspecified (03/27/24) Hypokalemia (03/27/24) Other disorders of plasma-protein metabolism, not elsewhere classified (03/27/24) Metabolic encephalopathy (03/27/24) Acute sphenoidal sinusitis, unspecified (03/27/24) Noninfective gastroenteritis and colitis, unspecified (03/27/24) Unspecified abdominal pain (03/27/24) Nausea with vomiting, unspecified (03/27/24) Subjective Subjective Saw patient at bedside this morning. Patient had much improved energy level today. She was on a clear liquid diet for breakfast this morning and was asking for a regular diet for lunch. Denied any nausea today and stated her abdominal pain felt improved. Continue to feel somewhat weak but close to her baseline from a functional standpoint. No other new concerns this morning. Objective Data Objective Data Vital Signs: Vital Signs Temp Pulse Resp BP Pulse Ox O2 Del Method 97.2 F L 58 L 18 127/82 H 95 Room Air 03/30/24 09:18 03/30/24 09:18 03/30/24 09:18 03/30/24 09:18 03/30/24 09:42 03/30/24 09:42 Oxygen Delivery Method Room Air Weight: 99.2 kg Body Mass Index (BMI) 36.4 Intake & Output: Intake and Output for Last 24 Hours 03/28/24 03/29/24 03/30/24 23:59 23:59 23:59 Intake Total 3627.75 / 3627.75 550 / 550 250 / 250 Output Total 1450 / 1450 400 / 400 Balance 2177.75 / 2177.75 150 / 150 250 / 250 Medical Nutrition Assessment Dietitian: Malnutrition Criteria Met Start: 03/28/24 13:59 Freq: Status: Active Protocol: Document 03/28/24 15:09 SB (Rec: 03/28/24 15:09 SB [id number]) Nutrition Malnutrition Evidence of Yes Malnutrition Exists Malnutrition (severe Chronic ): Evidenced By Suboptimal Energy Intake (Severe),Weight Loss (Severe) Clinical Problem Chronic Disease or Condition Related Malnutrition Etiology severe related to inadequate oral intake and GI surgery Signs/Symptoms as evidenced by 26% unintentional weight loss x 6 months and PO meeting <75% of estimated nutrition needs x 6 months. Status Active Problem Recommendation Dietitian Recommend advanced diet as tolerated to liberal regular Recommendations/ diet d/t signs and symptoms of malnutrition. Changes Pt refuses all ONS at this time. Will monitor weight trends, as available. Reviewed and approved by Indiana Carias, RD, LD. Lab / Micro Data 03/30/24 05:52 03/30/24 05:52 Labs: Laboratory Results - last 24 hr 03/28/24 05:35: Diff Path Review Reviewed 03/30/24 05:52: WBC 6.1, RBC 2.81 L, Hgb 8.2 L, Hct 26.4 L, MCV 94.0, MCH 29.2, MCHC 31.1 L, RDW Std Deviation 56.1 H, RDW Coeff of Vicki 16.2 H, Plt Count 288, MPV 10.4, Sodium 135 L, Potassium 3.2 L, Chloride 102, Carbon Dioxide 18.0 L, Anion Gap 15, BUN 3 L, Creatinine 1.22 H, Estim Creat Clear Calc 53.62, Est GFR (MDRD) Af Amer 57 L, Est GFR (MDRD) Non-Af 47 L, BUN/Creatinine Ratio 2.5 L, Glucose 164 H, Calcium 8.3 L Micro: Microbiology 03/28/24 05:35 Blood Culture (Wb) - Right Hand Blood Culture - Preliminary No growth in 48 hours. 03/27/24 19:58 Blood Culture (Wb) - Left Hand Blood Culture - Preliminary No growth in 48 hours. Physical Exam Const alert, oriented x3 and no apparent distress Constitutional Narrative: Upper middle-aged female, class II obesity, energy level improved and sitting back comfortably in bed, answering questions appropriately, in no acute distress. Improved from admission. General Appearance: cooperative HEENT normocephalic, head/scalp atraumatic, hearing grossly normal bilaterally, nasal mucous membranes and turbinates normal and moist oral mucous membranes Eyes PERRL, EOMs intact bilaterally and conjunctivae normal Neck full ROM Chest inspection of chest normal Resp normal respiratory effort, normal air movement, no use of accessory muscles and clear to auscultation bilaterally Cardio regular rate, regular rhythm, no murmurs and peripheral pulses 2+ throughout GI GI Narrative: Abdomen mildly distended but soft and no tenderness to palpation today. Improved. Back/Spine normal ROM Extremity normal to inspection and no pedal edema Skin no rashes or lesions noted Neuro moves all extremities and no focal motor deficits Speech: speech normal Psych mental status grossly normal Assessment & Plan Assessment/Plan (1) Colitis: PLAN: Plan Patient is a 63-year-old female who presented [facility] ED on 03/27/2024 with worsening abdominal pain and nausea with vomiting. 1. Colitis with chronic diarrhea and nausea with vomiting, recent history of acute mesenteric ischemia with perforation s/p small bowel resection and right hemicolectomy ? GI following. CT abdomen pelvis on admit showed colonic wall thickening involving the transverse, descending and sigmoid colon possibly due to acute infectious or inflammatory colitis; also showed dilated small bowel loops in right lower quadrant without transition point likely due to ileus. Notably the CT was slightly worse in appearance than CT abdomen pelvis from 03/20. C. difficile and enteric panel negative. Colonoscopy on 03/29 showed congestion mucosa in the entire examined colon with stool still noted in the rectum, ascending colon and cecum. Per GI, appears most consistent with collagenous colitis. Started on budesonide and cholestyramine on 03/29. IV antibiotics and IV steroids discontinued on 03/30. Advanced to regular diet on 03/30 and tolerating well. If patient continues to feel improved tomorrow, should be medically ready for discharge. 2. Lower extremity edema ? Suspected secondary to third spacing in setting of protein calorie malnutrition. Continue home Lasix. 3. Hyperthyroidism ? Low TSH and elevated free T4 on admit. Holding Synthroid for now. 4. Acute toxic encephalopathy, resolved ? CT head negative on admit. Suspected due to medications, now resolved. Continue home medications for anxiety/depression as noted below. Avoid other sedating medications as able. Chronic medical conditions: ? Class II obesity: BMI 36 on admit. Complicates hospital course, care and prognosis. ? Anxiety/depression: Continue home bupropion, BuSpar, venlafaxine and tizanidine. ? Hypertension: Holding home verapamil. ? Hyperlipidemia: Continue home statin. ? GERD: Continue home PPI. ? Chronic anemia: Hemoglobin stable at baseline around 8-9. DVT prophylaxis: SCDs CODE STATUS: DNR CCA, okay to intubate Expected disposition: Home with home health care, 1 to 2 days Total clinical time spent by myself addressing the patient's medical issues, reviewing all the data, and collaborating with patient's care team: 35 minutes. Charges/Coding Visit Charges Inpatient E&M: 02565 Subs Hosp L2
[2024-03-30] MEDS: oxyCODONE 5 MG Tablet PO ×2 (11:08→21:55)
[2024-03-30 11:40] VITALS: BP 122/80; PULSE 65; RESP 18; TEMP 36.1; O2SAT 97
[2024-03-30 12:08] LABS: Anti-Centromere B Ab <0.2 AI (0.0-0.9); Anti-Chromatin <0.2 AI (0.0-0.9); Anti-Jo <0.2 AI (0.0-0.9); Anti-Scleroderma-70 AB <0.2 AI (0.0-0.9); Anti-dsDNA Ab 1 IU/mL (0-9); RNP Ab <0.2 AI (0.0-0.9); SJOGREN'S Anti-SS-A test < 0.2 AI (0.0-0.9); SJOGREN'S Anti-SS-B test < 0.2 AI (0.0-0.9); Smith Ab <0.2 AI (0.0-0.9)
--- NOTE | 2024-03-30 13:00 | CASEMGMT ---
SHWETHA CM into pt room, pt sitting up in bed. Pt reports she returned d/t vomiting again. She states she was told she now has IBS and feels better that she has a reason to this N/V. Pt states since she was home she was taking her meds as ordered, HHC had resumed. Pt would like her HHC to resume again. She denies need for a list of other options. Plan to dc with [facility].
--- NOTE | 2024-03-30 13:41 | CASEMGMT ---
Pt has directives on chart naming dtr Renetta as HCPOA. ZACKARY Hills
[2024-03-30 15:08] LABS: Cytoplasmic Ab (C-ANCA) <1:20 titer (Neg:<1:20); Perinuclear Ab (P-ANCA) <1:20 titer (Neg:<1:20)
--- NOTE | 2024-03-30 15:24 | CASEMGMT ---
[facility] GUANAKO remains available to follow and fax discharge documentation. ZACKARY Hills
[2024-03-30 15:46] VITALS: BP 108/81; PULSE 64; RESP 18; TEMP 36.3; O2SAT 95
--- NOTE | 2024-03-30 17:19 | PN_ITS ---
Progress Note Patient underwent colonoscopy yesterday for her continued diarrhea. She is not having any problems today. Does not have any signs or symptoms of bleeding. Physical Exam Const alert, oriented x3, no apparent distress and healthy appearing General Appearance: cooperative GI normal to inspection, nondistended, normoactive bowel sounds, soft to palpation, non-tender and non-distended Percussion: normal to percussion Rectal Exam: deferred Assessment & Plan Assessment/Plan (1) Colitis: (2) Chronic diarrhea: (3) Acute metabolic encephalopathy: PLAN: Plan 63-year-old with recent history of acute mesenteric ischemia with perforation status post small bowel resection and right hemicolectomy. Current CT scan abdomen pelvis that show inflammation in the transverse, descending and sigmoid colon with a differential diagnosis being infectious versus inflammatory. The CT scan is different than her previous CT scan she had a week ago.While patients with inflammatory bowel disease are known to be at increased risk of venous thromboembolism. Less is known about the risk of arterial embolism. Thromboembolic occlusion of the superior mesenteric artery is recognized to be a common cause of acute mesenteric ischemia . Despite this there have been few reported cases of superior mesenteric artery thromboembolism related to IBD reported in the literature and most of these relate to chronic ischemia and none of the reported cases resulted in multi-organ infarction. There is one meta- analysis which looked at thromboembolic events and cardiovascular mortality in IBD . It found that the overall risk of venous thromboembolism in IBD patients was increased almost double that of the general population. Comparatively a significant increased risk of mesenteric ischemia was observed in IBD patients compared to the general population. The causes of acute mesenteric ischemia are usually secondary to an underlying cardiac abnormality either structural or electrophysiological. The other common cause is from any process that increases the general risk of arterial thrombosis including smoking, hypertension, hypercholesterolemia, peripheral vascular atherosclerosis, advanced age or chronic inflammatory disease affecting the vascular system such as vasculitis. The segment of bowel affected by CD is also particularly susceptible to ischemia given the greater metabolic demand of the inflamed segment. It has previously been noted that mesenteric blood flow is increased in CD . Hence, any alteration in the supply of oxygenated blood to affected bowel could result in acute ischemia. The mechanism leading to ischemia may result from either unstable thrombus rupture secondary to increased arterial wall stress or chronic ischemia secondary to the build-up of plaque in those with multiple cardiovascular risk factors. She does risk of cardiovascular disease due to atherosclerosis seen on her CT scan. I will order hypercoagulable workup along with workup for inflammatory bowel disease. She has agreed to undergo colonoscopy. Hopefully we will see any etiology to her symptoms. I do not know how much small bowel was removed during her recent surgery so she would need to have more than 100 cm of small bowel removed to have short gut syndrome. And that is using the ileum greater than the jejunum. 03/30/2024: Findings: The perianal and digital rectal examinations were normal. An area of moderately congested mucosa was found in the entire colon. Biopsies were taken with a cold forceps for histology. Verification of patient identification for the specimen was done. Estimated blood loss was minimal. There was evidence of a prior end-to-side ileo-colonic anastomosis in the ascending colon. This was patent and was characterized by healthy appearing mucosa. The terminal ileum appeared normal. Biopsies were taken with a cold forceps for histology. Verification of patient identification for the specimen was done. Estimated blood loss was minimal. Stool was found in the rectum, in the ascending colon and in the cecum. Impression: - Congested mucosa in the entire examined colon. Biopsied. - Patent end-to-side ileo-colonic anastomosis, characterized by healthy appearing mucosa. - The examined portion of the ileum was normal. Biopsied. - Stool in the rectum, in the ascending colon and in the cecum. Recommendation: - [facility]. - Resume previous diet today. - Continue present medications. - Await pathology results. Suspected collagenous colitis. Start budesonide 9 mg a day. - Repeat colonoscopy in 1 year to evaluate the response to therapy. Patient was put on budesonide for possible inflammatory bowel disease versus collagenous colitis versus lymphocytic colitis. She was also put on cholestyramine for bile acid induced diarrhea. She is tolerating that very well. I told her that we can increase it to twice a day if needed but for now I will like to stay the course with the current new medications. Await biopsies. Visit Charges Inpatient E&M: [address] [facility] Hosp L3
--- NOTE | 2024-03-30 19:01 | POSTOPAN2_ITS ---
Anesthesia Postop Eval I Sum Postop Eval Completion status Anesthesia document: Postop Eval 1 completed: Yes Anesthesia Postop Eval I Summary Anesthesia Postop Eval I Summary: Anesthesia Postop Eval I: Assessment Summary Airway patent Yes 03/29/24 17:07 ELECTRIC CELL TENDER.TNES Spontaneous unlabored Yes 03/29/24 17:07 ELECTRIC CELL TENDER.TNES respirations Mental status nausea No 03/29/24 17:07 ELECTRIC CELL TENDER.TNES Vomiting No 03/29/24 17:07 ELECTRIC CELL TENDER.TNES Anesthesia Postop Eval I: Fluid Summary Crystalloid volume administer 30 03/29/24 17:07 ELECTRIC CELL TENDER.TNES (ml) Colloids volume administered ( ml) Blood Product volume administered (ml) Total IV fluid infused 30 03/29/24 17:07 ELECTRIC CELL TENDER.TNES Anesthesia Postop Eval I: Summary Notes Anesthesia Complication No 03/29/24 17:07 ELECTRIC CELL TENDER.TNES Anesthesia Complication Comment: Post-operative progress note Anesthesia: Postop Eval II Evaluation Mental status: Awake and Calm Pain Level: 0 nausea: No Vomiting: No Complications Anesthesia Complication: No
--- NOTE | 2024-03-30 19:01 | PCM.POSTANE2 ---
Anesthesia Postop Eval I Sum Postop Eval Completion status Anesthesia document: Postop Eval 1 completed: Yes Anesthesia Postop Eval I Summary Anesthesia Postop Eval I Summary: Anesthesia Postop Eval I: Assessment Summary Airway patent Yes 03/29/24 17:07 MATERIAL REQUIREMENTS PLANNING MANAGER.TNES Spontaneous unlabored Yes 03/29/24 17:07 MATERIAL REQUIREMENTS PLANNING MANAGER.TNES respirations Mental status nausea No 03/29/24 17:07 MATERIAL REQUIREMENTS PLANNING MANAGER.TNES Vomiting No 03/29/24 17:07 MATERIAL REQUIREMENTS PLANNING MANAGER.TNES Anesthesia Postop Eval I: Fluid Summary Crystalloid volume administer 30 03/29/24 17:07 MATERIAL REQUIREMENTS PLANNING MANAGER.TNES (ml) Colloids volume administered ( ml) Blood Product volume administered (ml) Total IV fluid infused 30 03/29/24 17:07 MATERIAL REQUIREMENTS PLANNING MANAGER.TNES Anesthesia Postop Eval I: Summary Notes Anesthesia Complication No 03/29/24 17:07 MATERIAL REQUIREMENTS PLANNING MANAGER.TNES Anesthesia Complication Comment: Post-operative progress note Anesthesia: Postop Eval II Evaluation Mental status: Awake and Calm Pain Level: 0 nausea: No Vomiting: No Complications Anesthesia Complication: No
[2024-03-30] MEDS: Menthol/Lanolin/Calamine/Znox 113 GM Tube 1 APPLIC TOPICAL (21:56)
[2024-03-30] MEDS: MELATONIN 10 MG TABLET 5 MG PO (21:57)
[2024-03-30] MEDS: Rosuvastatin Calcium 5 MG Tablet PO (22:01)
[2024-03-30 22:14] VITALS: BP 134/82; PULSE 66; RESP 16; TEMP 36.1; O2SAT 96
[2024-03-31] VITALS (7 sets, daily range): BP systolic 96–120; BP diastolic 71–85; PULSE 60–64; RESP 16–18; TEMP 36.1–36.6; O2SAT 92–99; BMI 36.4
[2024-03-31] MEDS: Levothyroxine 125 MCG Tablet PO (05:27)
[2024-03-31] MEDS: tiZANidine HCl 2 MG Tablet 4 MG PO ×3 (05:28→20:11)
[2024-03-31] MEDS: Cholestyramine/Sucrose 4 GM/PACKET PO ×2 (06:38→15:39)
[2024-03-31] MEDS: busPIRone 15 MG TABLET PO ×2 (09:15→20:11)
[2024-03-31] MEDS: Budesonide 3 MG CAPSULE.EC 9 MG PO (09:15)
[2024-03-31] MEDS: Loratadine 10 MG Tablet PO (09:16)
[2024-03-31] MEDS: Cyanocobalamin 500 MCG Tablet 1000 MCG PO (09:16)
[2024-03-31] MEDS: Venlafaxine XR 150 MG Capsule PO (09:16)
[2024-03-31] MEDS: buPROPion (SR) 100 MG TABLET.SA 200 MG PO (09:16)
[2024-03-31] MEDS: Pantoprazole Sodium 40 MG Tablet PO ×2 (09:16→20:11)
[2024-03-31] MEDS: Furosemide 40 MG Tablet PO (09:16)
--- NOTE | 2024-03-31 10:22 | PCM.DC.SUM ---
Providers Date of Admission: 03/27/24 Date of Discharge: 03/31/24 Primary Care Physician: Chaparro Mejia MD Consultations 03/27/24 21:16 Consult: Gastroenterology Routine Consulting Provider: [facility] Reason for Consult: Suspected acute inflammatory colitis. EMERGENT Consult: No MD Notified: Yes Date Notified: 03/28/24 Time Notified: 07:38 Method of Notification: Text Consult: Onc/Wound/pastoral assistant Routine Comment: Reason for Consult:: Buttock wounds. Reason For Visit: ACUTE INFLAMMATORY COLITIS Diagnosis Discharge Diagnosis (1) Colitis: Status: Acute Code(s): K52.9 - Noninfective gastroenteritis and colitis, unspecified (2) Chronic diarrhea: Status: Chronic Code(s): K52.9 - Noninfective gastroenteritis and colitis, unspecified (3) Acute metabolic encephalopathy: Status: Acute Code(s): G93.41 - Metabolic encephalopathy Medications at Discharge Home Medications buspirone 30 mg tablet 15 mg PO BID anxiety 04/28/23 tizanidine 4 mg tablet 4 mg PO TID muscle relaxer 04/28/23 trazodone 100 mg tablet 100 mg PO QHS sleep 04/28/23 venlafaxine 150 mg capsule,extended release 24 hr 150 mg PO QDAY mental health 04/28/23 bupropion HCl 200 mg tablet,12 hr sustained-release 200 mg PO DAILY mental health 11/19/23 melatonin 5 mg capsule 5 mg PO QHS sleep 11/19/23 levothyroxine 125 mcg tablet 125 mcg PO DAILY@0600 thyroid #0 tabs 11/23/23 mecobalamin (vitamin B12) 1,000 mcg chewable tablet (B12 Active) 1,000 mcg PO QDAY vitamin 12/31/23 pantoprazole 40 mg tablet,delayed release (Protonix) 40 mg PO BID reflux 12/31/23 potassium chloride 20 mEq tablet,extended release 20 meq PO BID electrolyte 01/22/24 fexofenadine 180 mg tablet (Akilah Allergy) 180 mg PO DAILY allergies 03/10/24 rosuvastatin 5 mg tablet 5 mg PO QHS cholesterol 03/10/24 verapamil 240 mg tablet,extended release 240 mg PO DAILY blood pressure #30 tabs 03/11/24 Held on 03/31/24. Instructions: Resume on 04/12/24. Discussed with PCP before resuming. calcium carbonate (Tums) 400 mg PO Q4H PRN heartburn 03/23/24 furosemide 20 mg tablet 20 mg PO DAILY water pill 30 days #30 tabs 03/25/24 midodrine 10 mg tablet 10 mg PO TIDCM blood pressure 15 days #45 tabs 03/25/24 budesonide 3 mg capsule,delayed,extended release 9 mg (3 x 3 mg) PO DAILY 30 days #90 ea 03/31/24 cholestyramine (with sugar) 4 gram powder for susp in a packet 1 ea PO BIDAC 30 days #60 ea 03/31/24 Hospital Course Operations None Procedures Colonoscopy, EKG and - (CT abdomen pelvis, CT brain, CT lower extremity) Summary of Care Provided Minutes Spent on Discharge: 35 Hospital Course: Patient is a 63-year-old female who presented [facility] ED on 03/27/2024 with worsening abdominal pain and nausea with vomiting. Hospital course as noted below. Patient discharged home with home health care in stable condition on 03/31. 1. Colitis with chronic diarrhea and nausea with vomiting, recent history of acute mesenteric ischemia with perforation s/p small bowel resection and right hemicolectomy ? GI followed. CT abdomen pelvis on admit showed colonic wall thickening involving the transverse, descending and sigmoid colon possibly due to acute infectious or inflammatory colitis; also showed dilated small bowel loops in right lower quadrant without transition point likely due to ileus. Notably the CT was slightly worse in appearance than CT abdomen pelvis from 03/20. C. difficile and enteric panel negative. Colonoscopy on 03/29 showed congestion mucosa in the entire examined colon with stool still noted in the rectum, ascending colon and cecum. Per GI, appears most consistent with collagenous colitis. Started on budesonide and cholestyramine on 03/29. IV antibiotics and IV steroids discontinued on 03/30. Advanced to regular diet on 03/30 and tolerating well. Discharged on budesonide and cholestyramine with plan for close outpatient follow-up with GI. 2. Lower extremity edema ? Suspected secondary to third spacing in setting of protein calorie malnutrition. Continue home Lasix. 3. Hyperthyroidism ? Low TSH and elevated free T4 on admit. Held Synthroid during hospitalization, okay to resume on discharge. 4. Acute toxic encephalopathy, resolved ? CT head negative on admit. Suspected due to medications, now resolved. Continue home medications for anxiety/depression as noted below. Avoid other sedating medications as able. Chronic medical conditions: ? Class II obesity: BMI 36 on admit. Complicates hospital course, care and prognosis. ? Anxiety/depression: Continue home bupropion, BuSpar, venlafaxine and tizanidine. ? Hypertension: Holding home verapamil, will defer to PCP on timing of restarting. ? Hyperlipidemia: Continue home statin. ? GERD: Continue home PPI. ? Chronic anemia: Hemoglobin stable at baseline around 8-9. Total clinical time spent by myself addressing the patient's medical issues, reviewing all the data, and collaborating with patient's care team: 35 minutes. Physical Exam Const alert, oriented x3 and no apparent distress Constitutional Narrative: Upper middle-aged female, class II obesity, energy level improved and sitting back comfortably in bed, answering questions appropriately, in no acute distress. Improved from admission. General Appearance: cooperative HEENT normocephalic, head/scalp atraumatic, hearing grossly normal bilaterally, nasal mucous membranes and turbinates normal and moist oral mucous membranes Eyes PERRL, EOMs intact bilaterally and conjunctivae normal Neck full ROM Chest inspection of chest normal Resp normal respiratory effort, normal air movement, no use of accessory muscles and clear to auscultation bilaterally Cardio regular rate, regular rhythm, no murmurs and peripheral pulses 2+ throughout GI GI Narrative: Abdomen mildly distended but soft and no tenderness to palpation today. Improved. Back/Spine normal ROM Extremity normal to inspection and no pedal edema Skin no rashes or lesions noted Neuro moves all extremities and no focal motor deficits Speech: speech normal Psych mental status grossly normal Medical Records Data Medical Nutrition Assessment Dietitian: Malnutrition Criteria Met Start: 03/28/24 13:59 Freq: Status: Active Protocol: Document 03/28/24 15:09 SB (Rec: 03/28/24 15:09 SB [id number]) Nutrition Malnutrition Evidence of Yes Malnutrition Exists Malnutrition (severe Chronic ): Evidenced By Suboptimal Energy Intake (Severe),Weight Loss (Severe) Clinical Problem Chronic Disease or Condition Related Malnutrition Etiology severe related to inadequate oral intake and GI surgery Signs/Symptoms as evidenced by 26% unintentional weight loss x 6 months and PO meeting <75% of estimated nutrition needs x 6 months. Status Active Problem Recommendation Dietitian Recommend advanced diet as tolerated to liberal regular Recommendations/ diet d/t signs and symptoms of malnutrition. Changes Pt refuses all ONS at this time. Will monitor weight trends, as available. Reviewed and approved by Indiana Carias RD, LD. Weight / BMI Weight Weight: 99.2 kg Body Mass Index (BMI) 36.4 ABG / Lab / Microbiology Data 03/30/24 05:52 03/30/24 05:52 Laboratory: Laboratory Results - last 24 hr 03/28/24 00:11: C-React Prot High Sens 41.60 H, c-ANCA Antibody <1:20, Atypical p-ANCA <1:20, p-ANCA Antibody <1:20, TORY-1 Antibody <0.2, SS-A/Ro IgG Antibody < 0.2, SS-B/La IgG Antibody < 0.2, Sm (Quan) Antibody <0.2, MILK HANDLER Antibody <0.2, Scl-70 Scleroderma Ab <0.2, Double Strand DNA Ab 1, Antichromatin Antibodies <0.2, Centromere B Antibody <0.2 Microbiology: Microbiology 03/28/24 05:35 Blood Culture (Wb) - Right Hand Blood Culture - Preliminary No growth in 48 hours. 03/27/24 19:58 Blood Culture (Wb) - Left Hand Blood Culture - Preliminary No growth in 48 hours. D/C Instructions DC O2, CPAP, BIPAP Needs Home O2 Discharge instructions: No Meaningful Use Info Meaningful Use Meaningful Use Diagnoses (Choose all that apply): None applicable Ischemic Stroke Statin Dosing Therapy Reference: STATIN DOSE THERAPY REFERENCE: * Patients > 75 years receive moderate or high dose statin therapy. * Patients 75 years or YOUNGER should receive HIGH intensity statin dose unless contraindicated. You will be required to document reason for non-treatment if statin daily dose does not meet guidelines. HIGH DOSE STATIN THERAPY DAILY Atorvastatin > than or = to 40 mg Rosuvastatin > than or = to 20 mg Amlodipine + Atorvastatin > than or = to 2.5/40 mg Ezetimibe + Simvastatin 10/80 mg Simvastatin 80mg Discharge Plan Admission Admit Date/Time: 03/27/24 20:57 Primary Reason for Your Visit: Abdominal pain and nausea with vomiting Attending Provider: Rosendo Avalos Primary Care Provider: Chaparro Mejia Consulting Providers: Christoph Coronel; Olivier Quintero Discharge Orders/Prescriptions Prescriptions: New budesonide 3 mg Capsule,Delayed,Extend.Release 9 mg PO DAILY 30 Days Qty: 90 0RF cholestyramine (with sugar) 4 gram Powder In Packet 1 ea PO BIDAC 30 Days Qty: 60 0RF Continued venlafaxine 150 mg capsule,extended release 24hr 150 mg PO QDAY buspirone 30 mg tablet 15 mg PO BID trazodone 100 mg tablet 100 mg PO QHS tizanidine 4 mg tablet 4 mg PO TID pantoprazole [Protonix] 40 mg tablet,delayed release (DR/EC) 40 mg PO BID mecobalamin (vitamin B12) [B12 Active] 1,000 mcg tablet,chewable 1,000 mcg PO QDAY bupropion HCl 200 mg tablet sustained-release 12 hr 200 mg PO DAILY melatonin 5 mg capsule 5 mg PO QHS levothyroxine 125 mcg Tablet 125 mcg PO DAILY@0600 Qty: 0 0RF rosuvastatin 5 mg tablet 5 mg PO QHS fexofenadine [Akilah Allergy] 180 mg tablet 180 mg PO DAILY potassium chloride 20 mEq tablet extended release 20 meq PO BID calcium carbonate [Tums] 200 mg calcium (500 mg) tablet,chewable 400 mg PO Q4H PRN (Reason: heartburn) furosemide 20 mg Tablet 20 mg PO DAILY 30 Days Qty: 30 0RF midodrine 10 mg tablet 10 mg PO TIDCM 15 Days Qty: 45 0RF Held verapamil 240 mg Tablet Extended Release 240 mg PO DAILY Qty: 30 0RF Hold Instructions: Resume on 04/12/24. Discussed with PCP before resuming. Referrals / Follow Up: Chaparro Mejia MD [Primary Care Provider] - Disposition Disposition (needs filled in before D/C Order can be placed): Home Health Service Charges/Coding Visit Charges Inpatient E&M: 99475 Disch Hosp >30min
--- NOTE | 2024-03-31 10:23 | CASEMGMT ---
Addendum entered by Virginia Martinez 03/31/24 11:16: TC to Joana at [facility], she is aware pt will dc today. Original Note: Per [facility], pt is active with SN, PT, OT and BLENDING KETTLE TENDER. Resumed these services for dc.
--- NOTE | 2024-03-31 11:31 | CASEMGMT ---
Addendum entered by Thalia Chacon 03/31/24 12:05: GUANAKO called and left a voicemail for Tran Welsh CM regarding pt discharge and faxed documentation. ZACKARY Hills Original Note: Social Work- GUANAKO faxed discharge summary to Tran Welsh CM. Plan: Home with [facility] ZACKARY Hills
--- NOTE | 2024-03-31 13:18 | CASEMGMT ---
Social Work- SW received notice from bedside nurse that pt reports that she needs a wheelchair transport home, as pt reports the distance from the parking lot to her apartment is too far for her to ambulate. SW verified with pt that she feels the distance is greater than the distance travelled with therapy. SW arranged transportation with [facility] for for 4PM via wheelchair. Pt reports that pt dtr is hoping to move pt to an assisted living in [place] soon. Pt reports that she has hr aide coming Friday, but feels she will need additional aide hours. GUANAKO let pt know that GUANAKO notified [facility] of discharge and encouraged pt to follow up with case management specialist. ZACKARY Hills
[2024-03-31] MEDS: Rosuvastatin Calcium 5 MG Tablet PO ×2 (20:11→20:12)
[2024-03-31] MEDS: oxyCODONE 5 MG Tablet PO (20:13)
--- NOTE | 2024-03-31 20:21 | EKG12_ITS ---
Test Reason : AM EKG Blood Pressure : */* mmHG Vent. Rate : 77 BPM Atrial Rate : 77 BPM P-R Int : 150 ms QRS Dur : 82 ms QT Int : 434 ms P-R-T Axes : 47 2 211 degrees QTcB Int : 491 ms Normal sinus rhythm ST & T wave abnormality, consider inferior ischemia ST & T wave abnormality, consider anterolateral ischemia Prolonged QT Abnormal ECG When compared with ECG of 31-Mar-2024 20:34, MANUAL COMPARISON REQUIRED DATA IS UNCONFIRMED Confirmed by Sherif Bravo ([id number]), editorial cartoonist ARUN DUEÑAS ([id number]) on 04/05/2024 10:39:12 AM Referred By: Christoph Coronel Confirmed By: Sherif Bravo
--- NOTE | 2024-03-31 21:07 | PCM.HOSP.N ---
Hospitalist Note Patient with onset of chest pain, midsternal without radiation, notes pressure like sensation. EKG with nonspecific ST-T changes different than prior EKG. Will obtain trop series to be safe, mag level, administer FS ASA and place on telemetry.
[2024-03-31] MEDS: Aspirin 325 MG Tablet PO (21:33)
[2024-03-31] MEDS: Morphine 2 MG/ML Syringe IV (21:33)
--- NOTE | 2024-03-31 21:37 | NURSING ---
pt c/o epigastric chest pain, EKG obtained, changes noted by Dr. Hunt. pt placed on tele, ASA & morphine given per new order and labs ordered. pt rates chest pain 9/10 along with chronic lower back pain 9/10. vss. transport notified by charge nurse that transport is cancelled d/t new onset of chest pain. will continue to monitor
[2024-03-31] MEDS: traZODone 100 MG Tablet PO (22:10)
[2024-03-31] MEDS: MELATONIN 10 MG TABLET 5 MG PO (22:10)
[2024-03-31 23:35] LABS: Magnesium 1.8 mg/dL (1.6-2.6); Troponin-I HS 1228 pg/mL (3.0-54.0)
[2024-04-01] VITALS (11 sets, daily range): BP systolic 113–143; BP diastolic 51–77; PULSE 58–78; RESP 16–22; TEMP 36.1–37.3; O2SAT 94–99; BMI 38.7
[2024-04-01 01:44] LABS: Troponin-I HS 1127 pg/mL (3.0-54.0)
[2024-04-01] MEDS: 0.9% Normal Saline (1000mL) 1,000 ML 100 ML IV (02:00)
[2024-04-01] MEDS: Levothyroxine 125 MCG Tablet PO (05:31)
[2024-04-01] MEDS: oxyCODONE 5 MG Tablet PO ×2 (05:32→11:27)
[2024-04-01] MEDS: tiZANidine HCl 2 MG Tablet 4 MG PO ×3 (05:32→23:48)
--- NOTE | 2024-04-01 05:55 | ECHOCS_ITS ---
Reason For Study Reason For Study: NSTEMI Procedure This was a 2D Doppler, Color Flow transthoracic echocardiogram. Contrast injection was performed. Exam performed portable in patient room. Left Ventricle Normal LV size. Mild concentric left ventricular hypertrophy. Severe LV systolic dysfunction. Mid to distal inferior septal and anterior septal severe hypokinesis to akinesis, apical akinesis. Mid to distal inferior severe hypokinesis to akinesis. Estimated LVEF 25 to 30%. Stage I diastolic dysfunction. Right Ventricle Normal right ventricle. Atria The left and right atria are normal. Mitral Valve Moderate to severe mitral valve regurgitation. Tricuspid Valve Moderate tricuspid valve regurgitation. Right ventricular systolic pressure estimated at 40 mmHg. Aortic Valve Trisinus/trileaflet aortic valve. Mild-Moderate (1-2+) aortic valve insufficiency. Pulmonic Valve The pulmonic valve is not well visualized. Great Vessels Normal sized aortic root. Pericardium/Pleural No pericardial effusion. Medication Diluted definity 3ml given slow IV push to enhance endocardial definition. MMode/2D Measurements & Calculations LVIDd: 4.7 cm IVSd: 1.2 cm Ao root diam: 3.1 cm LVIDs: 4.0 cm LVPWd: 1.4 cm RVDd: 3.6 cm FS: 16.4 % LAV(MOD-bp): 56.5 ml LVAd ap4: 38.6 cm2 SV(MOD-sp4): 45.9 ml LAV(MOD-bp) Indexed: 27.5 ml/m2 LVLd ap4: 8.5 cm SI(MOD-sp4): 22.4 ml/m2 LAV(MOD-sp2): 56.6 ml EDV(MOD-sp4): 143.6 ml LAV(MOD-sp4): 55.8 ml EDV(sp4-el): 148.8 ml LVAs ap4: 30.9 cm2 LVLs ap4: 7.9 cm ESV(MOD-sp4): 97.7 ml ESV(sp4-el): 103.0 ml EF(MOD-sp4): 32.0 % EF(sp4-el): 30.8 % SV(sp4-el): 45.8 ml LA A4 area: 20.3 cm2 LA dimension(2D): 4.1 cm RA A4 area: 16.4 cm2 Time Measurements MV dec time: 0.21 sec Doppler Measurements & Calculations MV E max shmuel: 70.4 cm/sec Lat Peak E' Shmuel: 6.0 cm/sec Med Peak E' Shmuel: 6.6 cm/sec MV A max shmuel: 60.9 cm/sec E/E' lat: 11.7 E/E' med: 10.7 MV E/A: 1.2 MV V2 max: 101.9 cm/sec MV P1/2t max shmuel: 101.9 cm/sec Ao V2 max: 93.3 cm/sec MV max P.2 mmHg MV P1/2t: 78.3 msec Ao max P.5 mmHg MV V2 mean: 47.3 cm/sec MV dec slope: 381.3 cm/sec2 MV mean P.1 mmHg MVA(P1/2t): 2.8 cm2 MV V2 VTI: 25.4 cm LV V1 max: 55.0 cm/sec MR max shmuel: 463.5 cm/sec TR max shmuel: 251.2 cm/sec LV V1 max P.2 mmHg MR max P.9 mmHg TR max P.2 mmHg MR mean shmuel: 348.9 cm/sec MR mean P.7 mmHg MR VTI: 179.3 cm ECHO/Echo Complete W/ Contrast Interpretation Summary Severe LV systolic dysfunction. Mid to distal inferior septal and anterior sept al severe hypokinesis to akinesis, apical akinesis. Mid to distal inferior severe hypokinesis to akinesis. Estimated LVEF 25 to 30%. Stage I diastolic dysfunction. Moderate to severe mitral valve regurgitation. Moderate tricuspid valve regurgitation. Right ventricular systolic pressure est imated at 40 mmHg. Mild-Moderate (1-2+) aortic valve insufficiency. Ordering Physician: Kassie Hunt Referring Physician: Christoph Coronel Performed By: Anthony Meng RCS
[2024-04-01 06:31] LABS: ALB/GLOB Ratio 0.5 RATIO (0.9-2.4); AST(SGOT) 761 U/L (15-37); Alanine Aminotransfer ALT/SGPT 170 U/L (13-56); Albumin, Serum 1.9 g/dL (3.2-5.0); Alkaline Phosphatase 125 U/L (45-117); Anion Gap 11 (5-15); BUN 4 mg/dL (7-18); BUN/Creat Ratio 5.3 RATIO (10-20); Calcium,Total 8.1 mg/dL (8.5-10.1); Chloride 102 mmol/L (98-107); Creatinine, Serum 0.75 mg/dL (0.55-1.02); EST Glomerular Filtration Rate 82 mL/min (>60); Est Glom Filt Rate - Afr Amer 99 mL/min (>60); Globulin 3.6 g/dL (2.2-4.2); Glucose 79 mg/dL (74-106); Potassium 3.9 mmol/L (3.5-5.1); Protein, Total 5.5 g/dL (6.4-8.2); Sodium Level 130 mmol/L (136-145); Troponin-I HS 928 pg/mL (3.0-54.0)
[2024-04-01 07:29] LABS: Absolute Lymphocyte Count 1.13 X10^3/uL (0.83-4.51); Absolute Neutrophil Count 5.9 X10^3/uL (2.0-7.7); Basophil# 0.01 X10^3/uL; Basophil% 0.1 % (0-1); Eosinophil# 0.01 X10^3/uL; Eosinophils% 0.1 % (0-5); Hematocrit 28.1 % (37-47); Hemoglobin 8.8 g/dL (12.0-15.0); Lymphocyte # 1.13 X10^3/ul (0.83-4.51); Lymphocyte % 14.1 % (19-41); Mean Corp Hgb Conc 31.3 g/dL (32-36); Mean Corpuscular Hgb 29.1 pg (27.0-32.0); Mean Platelet Vol. 10.6 fl (6.2-12.0); NRBC Flagged by Analyzer 0.8 % (0-5); Neutrophil # 5.92 X10^3/uL (2.7-7.7); Neutrophil % 74.1 % (47-70); Platelet Count 287 K/mm3 (150-450); RBC Distribution Width SD 54.2 fl (35.1-43.9); Red Blood Count 3.02 M/mm3 (4.2-5.4)
[2024-04-01 08:45] LABS: D-Dimer Quantitative (DVT/PE) 0.64 FEU/ug/m (0.27-0.49)
--- NOTE | 2024-04-01 08:57 | CASEMGMT ---
SHWETHA GALLARDO NOTE: Joana @ [facility] made aware discharge was cancelled yesterday. Obinna NASH RN CM
--- NOTE | 2024-04-01 10:28 | CT_ITS ---
PROCEDURE: CTA CHEST W/WO CONTRAST REASON FOR EXAM: Chest pain. Possible pulmonary embolism. TECHNIQUE: CTA imaging of the chest with intravenous contrast. 3D reconstructions. CONTRAST: 100 mL of Isovue 370. COMPARISON: Comparison is made with prior study dated October 01, 2023. FINDINGS: Hardware: None. Lymph nodes: No mediastinal hilar or axillary lymphadenopathy. Heart: Normal heart size. No pericardial effusion. RV/LV Diameter Ratio: N/A Thoracic Aorta: No thoracic aortic aneurysm or dissection. Atherosclerotic plaque formation. Pulmonary Vessels: No evidence of acute pulmonary emboli through the major subsegmental branches. Most Proximal Level of Embolus (if embolus present): N/A Lungs and Airways: Bilateral pleural effusions with bibasilar dependent atelectasis. Mild increased interstitial markings/septal markings suggestive of superimposed CHF. Upper Abdomen: Visualized portions of the upper abdominal viscera are unremarkable. Bones: Degenerative changes of the thoracic spine. CT/CTA Chest W/WO Contrast IMPRESSION: No evidence of pulmonary embolism. Bilateral pleural effusions with bibasilar atelectasis with findings suggestive of mild vascular congestion. One or more dose reduction techniques were used (e.g., Automated exposure contr ol, adjustment of the mA and/or kV according to patient size, use of iterative reconstruction technique). Reading Location: [facility]
--- NOTE | 2024-04-01 10:45 | CON.PCM.CA_ITS ---
Assessment & Plan Assessment/Plan (1) NSTEMI (non-ST elevated myocardial infarction): PLAN: Aspirin. Nitrates. Check echocardiogram. Patient is noted to have elevated D-dimers. A CTA of the chest has already been ordered for her to rule out PE. If the CTA of the chest was negative, then will recommend coronary angiography with possible revascularization. However prior to undertaking coronary angiography, we will need an okay from GI as she has been having acute colitis with some ileus as well. (2) Colitis: PLAN: As per GI. Started on steroids. (3) Ileus: PLAN: As per GI. (4) Obesity (BMI 30-39.9): PLAN: Lose weight. (5) Chronic diarrhea: PLAN: History of colitis. History of previous intestinal surgery. Follow as per GI. (6) Dyslipidemia: PLAN: On rosuvastatin. Transaminitis noted. GI following. (7) Anemia: PLAN: Monitor. HPI Consult Data Date of Consult: 04/01/24 HPI Narrative Reason for Consultation: NSTEMI HPI Narrative: 63-year-old lady with chronic abdominal problems. She has history of colitis. According to the patient, she has chronic diarrhea. She has been admitted to the hospital this time with complaints of abdominal pain, nausea and vomiting. She has had CT scan of her abdomen reported as possible infectious or inflammatory colitis. Also ileus was noted. She has had a colonoscopy done as well. Last night, patient developed anterior chest pressure. No radiation to the arm neck or jaw. Positive associated shortness of breath. As part of her workup, troponins were checked. These were noted to be elevated. Patient denies any previous history of heart disease. Denies any previous history of angina. She does however complain of shortness of breath with exertion. [facility] Medical History (Updated 04/01/24 @ 10:[address] Lex Lester MD) Obesity (BMI 30-39.9) Nausea and vomiting Anemia No natural teeth Wears glasses Depression Anxiety Walker as ambulation aid Arthritis Low iron Excessive bleeding Restless legs Heartburn Shortness of breath on exertion Former smoker History of echocardiogram Hypoalbuminemia Suspected inflammatory bowel disease Elevated troponin Heart failure Gastroenteritis Diarrhea Small bowel perforation Small bowel ischemia Trigger finger, left ring finger Trigger finger, right ring finger Right carpal tunnel syndrome Bilateral carpal tunnel syndrome Hypothyroidism Anxiety and depression High cholesterol Hypertension Home Medications ?Medication ?Instructions ?Recorded ?Last Taken ?Type buspirone 30 mg tablet 15 mg PO BID anxiety 4 Unknown History tizanidine 4 mg tablet 4 mg PO TID muscle relaxer 0 04/28/23 Unknown History trazodone 100 mg tablet 100 mg PO QHS sleep 04/28/23 Unknown History venlafaxine 150 mg 150 mg PO QDAY mental health 04/28/23 Unknown History capsule,extended release 24 hr bupropion HCl 200 mg tablet,12 hr 200 mg PO DAILY [facility] 11/19/23 Unknown History sustained-release melatonin 5 mg capsule 5 mg PO QHS sleep 11/19/23 U nknown History levothyroxine 125 mcg tablet 125 mcg PO DAILY@0600 thy roid #0 11/23/23 Unknown Rx tabs mecobalamin (vitamin B12) 1,000 1,000 mcg PO QDAY ludivina min 12/31/23 Unknown History mcg chewable tablet (B12 Active) pantoprazole 40 mg tablet,delayed 40 mg PO BID reflux 12/31/23 Unknown History release (Protonix) potassium chloride 20 mEq 20 meq PO BID electrolyte Unknown History tablet,extended release fexofenadine 180 mg tablet 180 mg PO DAILY allergies 0 03/10/24 Unknown History ([place] [facility]) rosuvastatin 5 mg tablet 5 mg PO QHS cholesterol 02/11 11/04 Unknown History verapamil 240 mg tablet,extended 240 mg PO DAILY blood pressure #30 03/11/24 Unknown Rx release tabs Held on 03/31/24. Instructions: Resume on 04/12/24. Discussed with PCP before resuming. calcium carbonate (Tums) 400 mg PO Q4H PRN heartburn 03/23/24 Unknown History furosemide 20 mg tablet 20 mg PO DAILY water pill 30 days 03/25/24 Unknown Rx #30 tabs midodrine 10 mg tablet 10 mg PO TIDCM blood pressur e 15 03/25/24 Unknown Rx days #45 tabs budesonide 3 mg 9 mg (3 x 3 mg) PO DAILY 30 days 03/31/24 Unknown Rx capsule,delayed,extended release #90 ea cholestyramine (with sugar) 4 gram 1 ea PO BIDAC 30 da ys #60 ea 03/31/24 Unknown Rx powder for susp in a packet Allergy/AdvReac Type Severity Reaction Status Date / Time codeine Allergy Mild Vomiting Verified 03/27/24 16:06 cefaclor (From Ceclor) Allergy Anaphylaxis Verified 03/27/24 16:06 chlorhexidine Allergy Hives Verified 03/27/24 16:06 paroxetine (From Paxil) Allergy Anaphylaxis Verified 03/27/24 16:06 Penicillins Allergy Anaphylaxis Verified 03/27/24 16:06 Sulfa (Sulfonamide Allergy Anaphylaxis Verified 03/27/24 16:06 Antibiotics) magnesium sulfate AdvReac Severe Nausea/Vom/ Verified 03/27/24 16:06 Diarrhea magnesium AdvReac Intermediate nausea/vomi Verified 03/27/24 16:06 ting Family History Mother Heart disease Father Heart disease Surgical History History of carpal tunnel release of both wrists History of exploratory laparotomy S/P TKR (total knee replacement) History of shoulder replacement History of hysterectomy History of cholecystectomy Hx of appendectomy Social History household members: none Smoking Status: Former smoker alcohol intake: never substance use type: does not use Physical Exam Narrative Obese. Lying flat in the bed. No apparent distress. Heart sounds 1 and 2 are noted. Chest clear to auscultation bilaterally. Alert, awake. 1+ bilateral lower extremity edema is noted. Risk Stratification Risk Stratification Applicable: No Objective Data Vital Signs: Vital Signs Temp Pulse Resp BP Pulse Ox O2 Del Method O2 Flow Rate 97.0 F L 60 16 113/75 95 Nasal Cannula 2 04/01/24 03:30 04/01/24 03:30 04/01/24 03:30 04/01/24 03:30 04/01/24 07:40 04/01/24 07:40 04/01/24 07:40 Oxygen Flow Rate (L/min) 2 Oxygen Delivery Method Nasal Cannula Weight: 232 lb 12.93 oz Body Mass Index (BMI) 38.7 Intake & Output: Intake and Output for Last 24 Hours 03/30/24 03/31/24 04/01/24 23:59 23:59 23:59 Intake Total 1989 50 / 50 Output Total 200 / 200 150 / 150 250 / 250 Balance 1790 / 1790 -150 / -150 -200 / -200 Lab / Micro Data Attestation: I reviewed the patient's lab results. 04/01/24 01:05 04/01/24 05:18 Labs: Laboratory Results - last 24 hr 03/31/24 22:40: Magnesium 1.8, Troponin I High Sens 1228 H* 04/01/24 01:05: WBC 8.0, RBC 3.02 L, Hgb 8.8 L, Hct 28.1 L, MCV 93.0, MCH 29.1, MCHC 31.3 L, RDW Std Deviation 54.2 H, RDW Coeff of Vicki 16.0 H, Plt Count 287, MPV 10.6, Immature Gran % (Auto) 1.600 H, Neut % (Auto) 74.1 H, Lymph % (Auto) 14.1 L, [place] % (Auto) 10.0, Eos % (Auto) 0.1, Baso % (Auto) 0.1, Absolute Neuts (auto) 5.9, Absolute Lymphs (auto) 1.13, Nucleated RBC % 0.8, D-Dimer Quant (PE/DVT) 0.64 H*, Troponin I High Sens 1127 H* 04/01/24 05:18: WBC Cancelled, Corrected WBC Cancelled, RBC Cancelled, Hgb Cancelled, Hct Cancelled, MCV Cancelled, MCH Cancelled, MCHC Cancelled, RDW Std Deviation Cancelled, RDW Coeff of Vicki Cancelled, Plt Count Cancelled, MPV Cancelled, Immature Gran % (Auto) Cancelled, Neut % (Auto) Cancelled, Lymph % (Auto) Cancelled, [place] % (Auto) Cancelled, Eos % (Auto) Cancelled, Baso % (Auto) Cancelled, Absolute Neuts (auto) Cancelled, Absolute Lymphs (auto) Cancelled, Total Counted Cancelled, Neutrophils % (Manual) Cancelled, Band Neutrophils % Cancelled, Lymphocytes % (Manual) Cancelled, Monocytes % (Manual) Cancelled, Eosinophils % (Manual) Cancelled, Basophils % (Manual) Cancelled, Metamyelocytes % Cancelled, Myelocytes % Cancelled, Promyelocytes % Cancelled, Blast Cells % Cancelled, Plasma Cell % (Manual) Cancelled, Other Cells % Cancelled, Nucleated RBC % Cancelled, Nucleated RBCs/100 WBC Cancelled, Differential Comment Cancelled, Diff Path Review Cancelled, Hypersegmented Neuts Cancelled, Atypical Lymphocytes Cancelled, Reactive Lymphocytes Cancelled, Smudge Cells Cancelled, Toxic Granulation Cancelled, Toxic Vacuolation Cancelled, Dohle Bodies Cancelled, June Rods Cancelled, Platelet Estimate Cancelled, Plt Morphology Comment Cancelled, RBC Morphology Cancelled 04/01/24 05:18: RBC Morphology Cancelled, Polychromasia Cancelled, Hypochromasia Cancelled, Basophilic Stippling Cancelled, Anisocytosis Cancelled, Microcytosis Cancelled, Macrocytosis Cancelled, Spherocytes Cancelled, Sickle Cells Cancelled, Target Cells Cancelled, Tear Drop Cells Cancelled, Ovalocytes Cancelled, Stomatocytes Cancelled, [place] Bodies Cancelled, [place] Cells Cancelled, Bite Cells Cancelled, Crenated Cell Cancelled, Acanthocytes (Spur) Cancelled, Rouleaux Cancelled, Schistocytes Cancelled, Sodium 130 L, Potassium 3.9, Chloride 102, Carbon Dioxide 17.0 L, Anion Gap 11, BUN 4 L, Creatinine 0.75, Estim Creat Clear Calc 84.60, Est GFR (MDRD) Af Amer 99, Est GFR (MDRD) Non-Af 82, BUN/Creatinine Ratio 5.3 L, Glucose 79, Calcium 8.1 L, Total Bilirubin 0.40, AST 761 H, ALT 170 H, Alkaline Phosphatase 125 H, Troponin I High Sens 928 H*, Total Protein 5.5 L, Albumin 1.9 L, Globulin 3.6, A lbumin/Globulin Ratio 0.5 L Rhythm Strip Rhythm Strip: Sinus Rhythm Cardiology Labs/Tests 03/31/24 22:40: Magnesium 1.8 04/01/24 01:05: WBC 8.0, RBC 3.02 L, Hgb 8.8 L, Hct 28.1 L, MCV 93.0, MCH 29.1, MCHC 31.3 L, Plt Count 287, MPV 10.6, Immature Gran % (Auto) 1.600 H, Neut % (Auto) 74.1 H, Lymph % (Auto) 14.1 L, [place] % (Auto) 10.0, Eos % (Auto) 0.1, Baso % (Auto) 0.1, Absolute Neuts (auto) 5.9, Nucleated RBC % 0.8, D-Dimer Quant (PE/DVT) 0.64 H* 04/01/24 05:18: WBC Cancelled, Corrected WBC Cancelled, RBC Cancelled, Hgb Cancelled, Hct Cancelled, MCV Cancelled, MCH Cancelled, MCHC Cancelled, Plt Count Cancelled, MPV Cancelled, Immature Gran % (Auto) Cancelled, Neut % (Auto) Cancelled, Lymph % (Auto) Cancelled, [place] % (Auto) Cancelled, Eos % (Auto) Cancelled, Baso % (Auto) Cancelled, Absolute Neuts (auto) Cancelled, Total Counted Cancelled, Neutrophils % (Manual) Cancelled, Band Neutrophils % Cancelled, Lymphocytes % (Manual) Cancelled, Monocytes % (Manual) Cancelled, Eosinophils % (Manual) Cancelled, Basophils % (Manual) Cancelled, Metamyelocytes % Cancelled, Myelocytes % Cancelled, Promyelocytes % Cancelled, Blast Cells % Cancelled, Plasma Cell % (Manual) Cancelled, Other Cells % Cancelled, Nucleated RBC % Cancelled, Sodium 130 L, Potassium 3.9, Chloride 102, Carbon Dioxide 17.0 L, Anion Gap 11, BUN 4 L, Creatinine 0.75, Est GFR (MDRD) Af Amer 99, Est GFR (MDRD) Non-Af 82, BUN/Creatinine Ratio 5.3 L, Glucose 79, Calcium 8.1 L, Total Bilirubin 0.40 Rhythm: EKG: ECG shows sinus rhythm with ST depressions in anterolateral leads suggestive of ischemia. Compared to her previous EKGs, no new changes noted. ECHO: Stress Test: Cardiac Cath: PCI: CT Surgery: Holter monitor: EPS: PPM: CXR: Chest CT Scan:
--- NOTE | 2024-04-01 10:48 | PCM.PN.HOSP ---
Reason for Visit Reason for Visit: Diagnoses Unspecified protein-calorie malnutrition (03/27/24) Obesity, unspecified (03/27/24) Hypomagnesemia (03/27/24) Acidosis, unspecified (03/27/24) Hypokalemia (03/27/24) Other disorders of plasma-protein metabolism, not elsewhere classified (03/27/24) Metabolic encephalopathy (03/27/24) Acute sphenoidal sinusitis, unspecified (03/27/24) Noninfective gastroenteritis and colitis, unspecified (03/27/24) Unspecified abdominal pain (03/27/24) Nausea with vomiting, unspecified (03/27/24) Subjective Subjective Saw patient at bedside this morning. Patient was laying back comfortably in bed and in no acute distress. She did appear fatigued but similar to previous days. Patient had episode yesterday evening where she had chest pain, and she was found to have positive troponins and EKG changes concerning for NSTEMI. She currently denies any chest pain or shortness of breath at rest. No other new concerns this morning. Objective Data Objective Data Vital Signs: Vital Signs Temp Pulse Resp BP Pulse Ox O2 Del Method O2 Flow Rate 97.0 F L 60 16 113/75 95 Nasal Cannula 2 04/01/24 03:30 04/01/24 03:30 04/01/24 03:30 04/01/24 03:30 04/01/24 07:40 04/01/24 07:40 04/01/24 07:40 Oxygen Flow Rate (L/min) 2 Oxygen Delivery Method Nasal Cannula Weight: 105.6 kg Body Mass Index (BMI) 38.7 Intake & Output: Intake and Output for Last 24 Hours 03/30/24 03/31/24 04/01/24 23:59 23:59 23:59 Intake Total 1989 50 / 50 Output Total 200 / 200 150 / 150 250 / 250 Balance 1790 / 1790 -150 / -150 -200 / -200 Medical Nutrition Assessment Dietitian: Malnutrition Criteria Met Start: 03/28/24 13:59 Freq: Status: Active Protocol: Document 03/28/24 15:09 SB (Rec: 03/28/24 15:09 SB [id number]) Nutrition Malnutrition Evidence of Yes Malnutrition Exists Malnutrition (severe Chronic ): Evidenced By Suboptimal Energy Intake (Severe),Weight Loss (Severe) Clinical Problem Chronic Disease or Condition Related Malnutrition Etiology severe related to inadequate oral intake and GI surgery Signs/Symptoms as evidenced by 26% unintentional weight loss x 6 months and PO meeting <75% of estimated nutrition needs x 6 months. Status Active Problem Recommendation Dietitian Recommend advanced diet as tolerated to liberal regular Recommendations/ diet d/t signs and symptoms of malnutrition. Changes Pt refuses all ONS at this time. Will monitor weight trends, as available. Reviewed and approved by Indiana Carias, RD, LD. Lab / Micro Data 04/01/24 01:05 04/01/24 05:18 Labs: Laboratory Results - last 24 hr 03/31/24 22:40: Magnesium 1.8, Troponin I High Sens 1228 H* 04/01/24 01:05: WBC 8.0, RBC 3.02 L, Hgb 8.8 L, Hct 28.1 L, MCV 93.0, MCH 29.1, MCHC 31.3 L, RDW Std Deviation 54.2 H, RDW Coeff of Vicki 16.0 H, Plt Count 287, MPV 10.6, Immature Gran % (Auto) 1.600 H, Neut % (Auto) 74.1 H, Lymph % (Auto) 14.1 L, [place] % (Auto) 10.0, Eos % (Auto) 0.1, Baso % (Auto) 0.1, Absolute Neuts (auto) 5.9, Absolute Lymphs (auto) 1.13, Nucleated RBC % 0.8, D-Dimer Quant (PE/DVT) 0.64 H*, Troponin I High Sens 1127 H* 04/01/24 05:18: WBC Cancelled, Corrected WBC Cancelled, RBC Cancelled, Hgb Cancelled, Hct Cancelled, MCV Cancelled, MCH Cancelled, MCHC Cancelled, RDW Std Deviation Cancelled, RDW Coeff of Vicki Cancelled, Plt Count Cancelled, MPV Cancelled, Immature Gran % (Auto) Cancelled, Neut % (Auto) Cancelled, Lymph % (Auto) Cancelled, [place] % (Auto) Cancelled, Eos % (Auto) Cancelled, Baso % (Auto) Cancelled, Absolute Neuts (auto) Cancelled, Absolute Lymphs (auto) Cancelled, Total Counted Cancelled, Neutrophils % (Manual) Cancelled, Band Neutrophils % Cancelled, Lymphocytes % (Manual) Cancelled, Monocytes % (Manual) Cancelled, Eosinophils % (Manual) Cancelled, Basophils % (Manual) Cancelled, Metamyelocytes % Cancelled, Myelocytes % Cancelled, Promyelocytes % Cancelled, Blast Cells % Cancelled, Plasma Cell % (Manual) Cancelled, Other Cells % Cancelled, Nucleated RBC % Cancelled, Nucleated RBCs/100 WBC Cancelled, Differential Comment Cancelled, Diff Path Review Cancelled, Hypersegmented Neuts Cancelled, Atypical Lymphocytes Cancelled, Reactive Lymphocytes Cancelled, Smudge Cells Cancelled, Toxic Granulation Cancelled, Toxic Vacuolation Cancelled, Dohle Bodies Cancelled, June Rods Cancelled, Platelet Estimate Cancelled, Plt Morphology Comment Cancelled, RBC Morphology Cancelled 04/01/24 05:18: RBC Morphology Cancelled, Polychromasia Cancelled, Hypochromasia Cancelled, Basophilic Stippling Cancelled, Anisocytosis Cancelled, Microcytosis Cancelled, Macrocytosis Cancelled, Spherocytes Cancelled, Sickle Cells Cancelled, Target Cells Cancelled, Tear Drop Cells Cancelled, Ovalocytes Cancelled, Stomatocytes Cancelled, [place] Bodies Cancelled, Dat Cells Cancelled, Bite Cells Cancelled, Crenated Cell Cancelled, Acanthocytes (Spur) Cancelled, Rouleaux Cancelled, Schistocytes Cancelled, Sodium 130 L, Potassium 3.9, Chloride 102, Carbon Dioxide 17.0 L, Anion Gap 11, BUN 4 L, Creatinine 0.75, Estim Creat Clear Calc 84.60, Est GFR (MDRD) Af Amer 99, Est GFR (MDRD) Non-Af 82, BUN/Creatinine Ratio 5.3 L, Glucose 79, Calcium 8.1 L, Total Bilirubin 0.40, AST 761 H, ALT 170 H, Alkaline Phosphatase 125 H, Troponin I High Sens 928 H*, Total Protein 5.5 L, Albumin 1.9 L, Globulin 3.6, Albumin/Globulin Ratio 0.5 L Micro: Microbiology 03/28/24 05:35 Blood Culture (Wb) - Right Hand Blood Culture - Preliminary No growth in 48 hours. 03/27/24 19:58 Blood Culture (Wb) - Left Hand Blood Culture - Preliminary No growth in 48 hours. Physical Exam Const alert, oriented x3 and no apparent distress Constitutional Narrative: Upper middle-aged female, class II obesity, mildly fatigued but otherwise sitting back comfortably in bed, answering questions appropriately, in no acute distress. General Appearance: cooperative HEENT normocephalic, head/scalp atraumatic, hearing grossly normal bilaterally, nasal mucous membranes and turbinates normal and moist oral mucous membranes Eyes PERRL, EOMs intact bilaterally and conjunctivae normal Neck full ROM Chest inspection of chest normal Resp normal respiratory effort, normal air movement, no use of accessory muscles and clear to auscultation bilaterally Cardio regular rate, regular rhythm, no murmurs and peripheral pulses 2+ throughout GI normal to inspection, nondistended, normoactive bowel sounds, soft to palpation, non-tender and non-distended Back/Spine normal ROM Extremity normal to inspection and no pedal edema Skin no rashes or lesions noted Neuro moves all extremities and no focal motor deficits Speech: speech normal Psych mental status grossly normal Assessment & Plan Assessment/Plan (1) Colitis: (2) NSTEMI (non-ST elevated myocardial infarction): PLAN: Plan Patient is a 63-year-old female who presented [facility] ED on 03/27/2024 with worsening abdominal pain and nausea with vomiting. 1. Colitis with chronic diarrhea and nausea with vomiting, recent history of acute mesenteric ischemia with perforation s/p small bowel resection and right hemicolectomy ? GI followed. CT abdomen pelvis on admit showed colonic wall thickening involving the transverse, descending and sigmoid colon possibly due to acute infectious or inflammatory colitis; also showed dilated small bowel loops in right lower quadrant without transition point likely due to ileus. Notably the CT was slightly worse in appearance than CT abdomen pelvis from 03/20. C. difficile and enteric panel negative. Colonoscopy on 03/29 showed congestion mucosa in the entire examined colon with stool still noted in the rectum, ascending colon and cecum. Per GI, appears most consistent with collagenous colitis. Started on budesonide and cholestyramine on 03/29. IV antibiotics and IV steroids discontinued on 03/30. Advanced to regular diet on 03/30 and tolerating well. Continue budesonide and cholestyramine. 2. NSTEMI with new onset HFrEF ? Cardiology following. Initial plan was for discharge on 03/31 but patient developed acute chest pain that afternoon. EKG showed ischemic changes and troponin was elevated to 1228. Troponin trend 1228 > 1127 > 928. D-dimer was positive but CTA chest was negative for PE. Echo on 04/01 showed EF 25 to 30%, mid to distal inferior septal and anterior septal severe hypokinesis to akinesis along with apical akinesis, mild concentric LV hypertrophy and stage I diastolic dysfunction. Unclear if due to vascular disease versus possible Takotsubo cardiomyopathy. Per cardiology, planning for left heart cath on 04/02, n.p.o. at midnight. Continue aspirin but hold off on starting heparin drip per cardiology given prior history of GI bleed. 3. Elevated LFTs ? AST 761, ALT 170, alk phos 125 on 04/01. Suspect AST is primarily elevated due to NSTEMI as noted above and others are mildly elevated due to ischemic injury. Monitor daily CMP. 4. Lower extremity edema ? Suspected secondary to third spacing in setting of protein calorie malnutrition. Continue home Lasix. 5. Hyperthyroidism ? Low TSH and elevated free T4 on admit. Held Synthroid during hospitalization, okay to resume on discharge. 6. Acute toxic encephalopathy, resolved ? CT head negative on admit. Suspected due to medications, now resolved. Continue home medications for anxiety/depression as noted below. Avoid other sedating medications as able. 7. Chronic debility ? PT/OT/case management following. Planning for home with resumption of home health care on discharge. Chronic medical conditions: ? Class II obesity: BMI 36 on admit. Complicates hospital course, care and prognosis. ? Anxiety/depression: Continue home bupropion, BuSpar, venlafaxine and tizanidine. ? Hyperlipidemia: Continue home statin. ? GERD: Continue home PPI. ? Chronic anemia: Hemoglobin stable at baseline around 8-9. DVT prophylaxis: Lovenox CODE STATUS: DNR CCA, okay to intubate Expected disposition: Home with home health care, 1 to 2 days Total clinical time spent by myself addressing the patient's medical issues, reviewing all the data, and collaborating with patient's care team: 35 minutes. Charges/Coding Visit Charges Inpatient E&M: 59142 Subs Hosp L2
[2024-04-01] MEDS: Aspirin 81 MG TAB.CHEW PO (11:51)
[2024-04-01] MEDS: buPROPion (SR) 100 MG TABLET.SA 200 MG PO (11:52)
[2024-04-01] MEDS: Pantoprazole Sodium 40 MG Tablet PO ×2 (11:52→23:47)
[2024-04-01] MEDS: Cyanocobalamin 500 MCG Tablet 1000 MCG PO (11:52)
[2024-04-01] MEDS: Furosemide 40 MG Tablet PO (11:52)
[2024-04-01] MEDS: Budesonide 3 MG CAPSULE.EC 9 MG PO (11:53)
[2024-04-01] MEDS: Venlafaxine XR 150 MG Capsule PO (11:53)
[2024-04-01] MEDS: busPIRone 15 MG TABLET PO ×2 (11:54→23:47)
[2024-04-01] MEDS: Menthol/Lanolin/Calamine/Znox 113 GM Tube 1 APPLIC TOPICAL (11:54)
[2024-04-01] MEDS: Loratadine 10 MG Tablet PO (11:55)
[2024-04-01 12:20] LABS: CPK Total, Creatine Kinase 70 U/L (26-192); LDH 727 U/L (84-246)
[2024-04-01] MEDS: Enoxaparin 40 MG/0.4 ML Syringe SC (13:00)
--- NOTE | 2024-04-01 15:07 | CASEMGMT ---
Insurance review for hospitals In-network with [facility] insurance if transfer is recommended is as follows: [facility], [facility], [place], [facility], [facility], [facility], , [place], [facility], [facility], and [place]. Deborah Núñez, Discharge Planning Asst.
[2024-04-01] MEDS: Nitroglycerin Oint 1 INCH PACKET TD ×2 (15:08→23:46)
[2024-04-01] MEDS: Cholestyramine/Sucrose 4 GM/PACKET PO (17:15)
[2024-04-01] MEDS: Spironolactone 25 MG Tablet 12.5 MG PO (17:47)
[2024-04-01] MEDS: Albuterol 2.5 MG/3 ML VIAL.NEB. INHALATION (23:20)
[2024-04-01] MEDS: MELATONIN 10 MG TABLET 5 MG PO (23:47)
[2024-04-01] MEDS: traZODone 100 MG Tablet PO (23:47)
[2024-04-02] MEDS: oxyCODONE 5 MG Tablet PO (01:10)
[2024-04-02 05:25] VITALS: BMI 39.6
[2024-04-02 06:00] VITALS: BP 136/94; PULSE 78; RESP 24; TEMP 36.5; O2SAT 98
[2024-04-02 06:02] VITALS: BP 136/94; PULSE 78
[2024-04-02] MEDS: Nitroglycerin Oint 1 INCH PACKET TD (06:02)
[2024-04-02] MEDS: Levothyroxine 125 MCG Tablet PO (06:06)
[2024-04-02] MEDS: Lisinopril 2.5 MG Tablet PO (06:06)
[2024-04-02] MEDS: Aspirin 81 MG TAB.CHEW PO (06:07)
[2024-04-02 07:30] VITALS: BP 153/130; PULSE 100; PULSE 150; RESP 17; RESP 18; TEMP 36.2; O2SAT 95; O2SAT 96
[2024-04-02] MEDS: Albuterol 2.5 MG/3 ML VIAL.NEB. INHALATION (07:50)
[2024-04-02] MEDS: 0.9% Saline Lock 10 ML Syringe IV (08:03)
--- NOTE | 2024-04-02 08:33 | ED.RN ---
PATIENT BROUGHT TO THE HEALTH INFORMATION TECHNOLOGIST FOR HEART CATH. PATIENT PRESENTS TO THE HEALTH INFORMATION TECHNOLOGIST WITH SHORTNESS OF BREATH AND DIFFICULTLY BREATHING. PATIENT ATTEMPTED TO LAY FLAT AND WAS NOT ABLE TO LAY FLAT. PATIENT HAS WET LUNG SOUNDS AND LOWER LEG EDEMA. DR. FORDE CALLED TO THE ROOM TO ASSESS THE PATIENT. DECISION MADE TO NOT CONTINUE WITH CATH AND TRANSFER PATIENT TO ICU START IV LASIX AND BIPAP AND REVALUATION OF THE PATIENT IN THE MORNING AND SEE IF CONDITION IMPROVES. PCU MADE AWARE. REPORT TO ICU.
[2024-04-02] MEDS: Furosemide 40 MG/4 ML Vial IV (08:37)
--- NOTE | 2024-04-02 08:48 | WOUNDNOTE ---
Pt is currently off unit for testing.
--- NOTE | 2024-04-02 08:58 | PN.CARD_ITS ---
Objective Data Vital Signs: Vital Signs Temp Pulse Resp BP Pulse Ox O2 Del Method O2 Flow Rate 97.2 F L 100 17 153/130 H 95 Nasal Cannula 4 04/02/24 07:30 04/02/24 07:30 04/02/24 07:30 04/02/24 07:30 04/02/24 07:30 04/02/24 08:07 04/02/24 08:07 Oxygen Flow Rate (L/min) 4 Oxygen Delivery Method Nasal Cannula Weight: 237 lb 14.06 oz Body Mass Index (BMI) 39.6 Intake & Output: Intake and Output for Last 24 Hours 03/31/24 04/01/24 04/02/24 23:59 23:59 23:59 Intake Total 1500 / 1850 350 / 350 Output Total 150 / 150 250 / 550 500 / 500 Balance -150 / -150 1250 / 1300 -150 / -150 Lab / Micro Data 04/01/24 01:05 04/01/24 05:18 Labs: Laboratory Results - last 24 hr 04/01/24 05:18: Lactate Dehydrogenase 727 H, Total Creatine Kinase 70 04/01/24 08:28: TORY-1 Antibody TNP, SS-A/Ro IgG Antibody TNP, SS-B/La IgG Antibody TNP, Sm (Quan) Antibody TNP, ORAL SURGERY TECHNICIAN Antibody TNP, Antichromatin Antibodies TNP, Centromere B Antibody TNP Micro: Microbiology 03/27/24 19:58 Blood Culture (Wb) - Left Hand Blood Culture - Final No growth in 5 days. 03/28/24 05:35 Blood Culture (Wb) - Right Hand Blood Culture - Final No growth in 5 days. Rhythm Strip Rhythm Strip: Sinus Rhythm Cardiology Labs/Tests Rhythm: EKG: ECHO: Stress Test: Cardiac Cath: PCI: CT Surgery: Holter monitor: EPS: PPM: CXR: Chest CT Scan: Radiography Diagnostic Testing: Radiology Impression Echocardiogram 04/01/24 05:55 Interpretation Summary Severe LV systolic dysfunction. Mid to distal inferior septal and anterior septal severe hypokinesis to akinesis, apical akinesis. Mid to distal inferior severe hypokinesis to akinesis. Estimated LVEF 25 to 30%. Stage I diastolic dysfunction. Moderate to severe mitral valve regurgitation. Moderate tricuspid valve regurgitation. Right ventricular systolic pressure estimated at 40 mmHg. Mild-Moderate (1-2+) aortic valve insufficiency. Ordering Physician: Kassie Hunt Referring Physician: Christoph Coronel Performed By: Anthony Meng RCS Chest CTA 04/01/24 10:28 IMPRESSION: No evidence of pulmonary embolism. Bilateral pleural effusions with bibasilar atelectasis with findings suggestive of mild vascular congestion. One or more dose reduction techniques were used (e.g., Automated exposure control, adjustment of the mA and/or kV according to patient size, use of iterative reconstruction technique). Reading Location: [facility] Physical Exam Cardio Cardio Narrative: Very short of breath Remarkable lower extremity swelling Cardiac rhythm is sinus rhythm Cardiac exam S1-S2 is regular Chest exam bilateral inspiratory rales. Assessment & Plan Assessment/Plan (1) Inflammatory bowel disease (ulcerative colitis): (2) Dyslipidemia: (3) NSTEMI (non-ST elevated myocardial infarction): PLAN: Cardiac care plan recommendation I saw this patient in the Attending Anesthesiologist 63-year-old presentation to hospital with abdominal pain nausea She had a history of inflammatory colitis and has been seen and followed by the GI As part of cardiac evaluation she had a series of high sensitive troponin which showed elevated troponin which is trending down With the clinical diagnosis of non-ST elevation WI CTA showed no evidence of pulm embolism Echocardiogram showed severe LV systolic dysfunction which is remarkably different from a previous echocardiogram in January 03, 2024 at that time her EF was within normal Now the ejection fraction is around 25-30% Moderate to severe mitral regurgitation Moderate tricuspid dilatation with RV systolic pressure around 40% she has segmental wall motion abnormality clearly noted on the inferior septal and anterior apical. Patient while in Attending Anesthesiologist was very short of breath she had remarkable lower extremity edema with clinical impression of severe heart failure Plan recommendation 1. I transferred the patient to ICU 2. Will start on BiPAP 3. Start on Lasix to diurese the patient Her renal function within normal with a creatinine of 0.75. She had a history of anemia however she had significant elevation of high sensitive troponin and her hemoglobin is 8.8 with recommend to start on heparin at this point and to watch CBC She does not have any active symptoms of chest pain we will repeat the cardiac markers as well the EKG 4. Once heart failure treated she is stable we will plan for cardiac catheterization. She is a critical patient and obviously she will require high risk PCI based on the finding of cardiac catheterizations as she had a moderate to severe MR with severe LV dysfunction. Patient will be seen and evaluated with the wall washer in ICU and will make an arrangement for possible transfer, to tertiary cardiac center. Very high risk patient and may require hemodynamic support possible darwin Roque MD,FACC,[facility] supervisor [employer]
[2024-04-02 09:30] VITALS: BP 124/67; PULSE 77; RESP 20; TEMP 37.1; O2SAT 98
[2024-04-02 09:35] LABS: Hematocrit 27.3 % (37-47); Hemoglobin 8.8 g/dL (12.0-15.0); Mean Corp Hgb Conc 32.2 g/dL (32-36); Mean Corpuscular Hgb 29.6 pg (27.0-32.0); Mean Corpuscular Volume 91.9 fL (81-99); Mean Platelet Vol. 10.7 fl (6.2-12.0); Platelet Count 239 K/mm3 (150-450); RBC Distribution Width CV 15.9 % (11.6-14.6); RBC Distribution Width SD 53.2 fl (35.1-43.9); Red Blood Count 2.97 M/mm3 (4.2-5.4); White Blood Count 7.8 K/mm3 (4.4-11.0)
[2024-04-02 09:59] LABS: ALB/GLOB Ratio 0.6 RATIO (0.9-2.4); AST(SGOT) 1703 U/L (15-37); Alanine Aminotransfer ALT/SGPT 386 U/L (13-56); Alkaline Phosphatase 125 U/L (45-117); Anion Gap 9 (5-15); BUN 6 mg/dL (7-18); BUN/Creat Ratio 6.9 RATIO (10-20); Calcium,Total 8.2 mg/dL (8.5-10.1); Chloride 99 mmol/L (98-107); Cholesterol < 50 mg/dL (200); Creatinine, Serum 0.87 mg/dL (0.55-1.02); EST Glomerular Filtration Rate 69 mL/min (>60); Est Glom Filt Rate - Afr Amer 83 mL/min (>60); Estimated Creatinine Clearance 78.73 ml/min; Globulin 3.2 g/dL (2.2-4.2); Glucose 86 mg/dL (74-106); High Density Lipoprotein 19 mg/dL; Potassium 3.7 mmol/L (3.5-5.1); Protein, Total 5.2 g/dL (6.4-8.2); Sodium Level 131 mmol/L (136-145); Triglycerides 79 mg/dL; Very Low Density Lipoprotein 16 mg/dL (5-40)
[2024-04-02] MEDS: Furosemide 500 MG in Empty Viaflex 50 mL 1 EACH CONT INF (10:17)
[2024-04-02 10:19] VITALS: PULSE 84; RESP 12; RESP 28; O2SAT 100
[2024-04-02 11:08] LABS: ACCA 54 units (0-90); ALCA 10 units (0-60); AMCA 49 units (0-100); gASCA 35 units (0-50)
[2024-04-02] MEDS: Menthol/Lanolin/Calamine/Znox 113 GM Tube 1 APPLIC TOPICAL (11:25)
[2024-04-02 12:50] VITALS: PULSE 68; RESP 12; RESP 26; O2SAT 100
[2024-04-02 13:08] LABS: Anti-Centromere B Ab <0.2 AI (0.0-0.9); Anti-Chromatin <0.2 AI (0.0-0.9); Anti-Jo <0.2 AI (0.0-0.9); Anti-Scleroderma-70 AB <0.2 AI (0.0-0.9); Anti-dsDNA Ab <1 IU/mL (0-9); RNP Ab <0.2 AI (0.0-0.9); SJOGREN'S Anti-SS-A test < 0.2 AI (0.0-0.9); SJOGREN'S Anti-SS-B test < 0.2 AI (0.0-0.9); Smith Ab <0.2 AI (0.0-0.9)
--- NOTE | 2024-04-02 13:56 | PCM.DC.SUM ---
Providers Date of Admission: 03/27/24 Date of Discharge: 04/02/24 Primary Care Physician: Chaparro Mejia MD Consultations 03/27/24 21:16 Consult: Gastroenterology Routine Consulting Provider: [facility] Reason for Consult: Suspected acute inflammatory colitis. 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 04/01/24 00:47 Consult: Cardiology Routine Consulting Provider: Lex Lester Reason for Consult: NSTEMI EMERGENT Consult: No Notified: Yes Date Notified: 03/31/24 Time Notified: 23:59 Method of Notification: Text Reason For Visit: ACUTE INFLAMMATORY COLITIS Diagnosis Discharge Diagnosis (1) Inflammatory bowel disease (ulcerative colitis): Status: Acute Code(s): K51.90 - Ulcerative colitis, unspecified, without complications (2) Dyslipidemia: Status: Acute Code(s): E78.5 - Hyperlipidemia, unspecified (3) NSTEMI (non-ST elevated myocardial infarction): Status: Acute Code(s): I21.4 - Non-ST elevation (NSTEMI) myocardial infarction Medications at Discharge Home Medications buspirone 30 mg tablet 15 mg PO BID anxiety 04/28/23 tizanidine 4 mg tablet 4 mg PO TID muscle relaxer 04/28/23 trazodone 100 mg tablet 100 mg PO QHS sleep 04/28/23 venlafaxine 150 mg capsule,extended release 24 hr 150 mg PO QDAY mental health 04/28/23 bupropion HCl 200 mg tablet,12 hr sustained-release 200 mg PO DAILY mental health 11/19/23 melatonin 5 mg capsule 5 mg PO QHS sleep 11/19/23 levothyroxine 125 mcg tablet 125 mcg PO DAILY@0600 thyroid #0 tabs 11/23/23 mecobalamin (vitamin B12) 1,000 mcg chewable tablet (B12 Active) 1,000 mcg PO QDAY vitamin 12/31/23 pantoprazole 40 mg tablet,delayed release (Protonix) 40 mg PO BID reflux 12/31/23 potassium chloride 20 mEq tablet,extended release 20 meq PO BID electrolyte 01/22/24 fexofenadine 180 mg tablet (Akilah Allergy) 180 mg PO DAILY allergies 03/10/24 rosuvastatin 5 mg tablet 5 mg PO QHS cholesterol 03/10/24 verapamil 240 mg tablet,extended release 240 mg PO DAILY blood pressure #30 tabs 03/11/24 Held on 03/31/24. Instructions: Resume on 04/12/24. Discussed with PCP before resuming. calcium carbonate (Tums) 400 mg PO Q4H PRN heartburn 03/23/24 furosemide 20 mg tablet 20 mg PO DAILY water pill 30 days #30 tabs 03/25/24 Held on 04/02/24. Instructions: Resume on 04/12/24. midodrine 10 mg tablet 10 mg PO TIDCM blood pressure 15 days #45 tabs 03/25/24 budesonide 3 mg capsule,delayed,extended release 9 mg (3 x 3 mg) PO DAILY 30 days #90 ea 03/31/24 cholestyramine (with sugar) 4 gram powder for susp in a packet 1 ea PO BIDAC 30 days #60 ea 03/31/24 aspirin 81 mg chewable tablet 81 mg PO BREAKFAST 30 days #0 tabs 04/02/24 lisinopril 2.5 mg tablet 2.5 mg PO DAILY 30 days #0 tabs 04/02/24 spironolactone 25 mg tablet 12.5 mg (1/2 x 25 mg) PO DAILY 30 days #0 tabs 04/02/24 Hospital Course Operations None Procedures Colonoscopy, EKG, Transthoracic echo and - (CT abdomen pelvis, brain CT, CT lower extremity, CTA chest) Summary of Care Provided Minutes Spent on Discharge: 35 Hospital Course: Patient is a 63-year-old female who presented [facility] ED on 03/27/2024 with worsening abdominal pain and nausea with vomiting. Hospital course was complicated by NSTEMI with new onset HFrEF. Patient transferred to [facility] for further cardiology evaluation on 04/02. 1. Colitis with chronic diarrhea and nausea with vomiting, recent history of acute mesenteric ischemia with perforation s/p small bowel resection and right hemicolectomy ? GI followed. CT abdomen pelvis on admit showed colonic wall thickening involving the transverse, descending and sigmoid colon possibly due to acute infectious or inflammatory colitis; also showed dilated small bowel loops in right lower quadrant without transition point likely due to ileus. Notably the CT was slightly worse in appearance than CT abdomen pelvis from 03/20. C. difficile and enteric panel negative. Colonoscopy on 03/29 showed congestion mucosa in the entire examined colon with stool still noted in the rectum, ascending colon and cecum. Per GI, appears most consistent with collagenous colitis. Started on budesonide and cholestyramine on 03/29. IV antibiotics and IV steroids discontinued on 03/30. Advanced to regular diet on 03/30 and tolerated well. Continue budesonide and cholestyramine. 2. NSTEMI with new onset HFrEF ? Cardiology followed. Initial plan was for discharge on 03/31 but patient developed acute chest pain that afternoon. EKG showed ischemic changes and troponin was elevated to 1228. Troponin trend 1228 > 1127 > 928. D-dimer was positive but CTA chest was negative for PE. Echo on 04/01 showed EF 25 to 30%, mid to distal inferior septal and anterior septal severe hypokinesis to akinesis along with apical akinesis, mild concentric LV hypertrophy and stage I diastolic dysfunction. Unclear if due to vascular disease versus possible Takotsubo cardiomyopathy. Plan was for left heart cath on morning of 04/02 the patient had severe shortness of breath with desaturation and significant crackles noted bilaterally. Catheterization was not performed and patient was given a dose of IV Lasix, placed on BiPAP and transported to the ICU. She was then started on a Lasix drip at 10 ml/hr. She was also started on a heparin drip by cardiology. Given the complexity of her case, cardiology opted to transfer the patient for further evaluation. Transferred to [facility] on 04/02. 3. Elevated LFTs ? AST 761, ALT 170, alk phos 125 on 04/01. Suspect AST is primarily elevated due to NSTEMI as noted above and others are mildly elevated due to ischemic injury. Monitored daily CMP. 4. Lower extremity edema ? Suspected secondary to third spacing in setting of protein calorie malnutrition. On Lasix drip as noted above. 5. Hyperthyroidism ? Low TSH and elevated free T4 on admit. Held Synthroid during hospitalization. 6. Acute toxic encephalopathy, resolved ? CT head negative on admit. Suspected due to medications, now resolved. Continue home medications for anxiety/depression as noted below. Avoid other sedating medications as able. 7. Chronic debility ? PT/OT/case management followed. Plan was for home with resumption of home health care on discharge. Chronic medical conditions: ? Class II obesity: BMI 36 on admit. Complicates hospital course, care and prognosis. ? Anxiety/depression: Continue home bupropion, BuSpar, venlafaxine and tizanidine. ? Hyperlipidemia: Continue home statin. ? GERD: Continue home PPI. ? Chronic anemia: Hemoglobin stable at baseline around 8-9. Total clinical time spent by myself addressing the patient's medical issues, reviewing all the data, and collaborating with patient's care team: 35 minutes. Physical Exam Const alert, oriented x3 and no apparent distress Constitutional Narrative: Upper middle-aged female, class II obesity, mild increased work of breathing noted on BiPAP, mildly fatigued appearing but still mentating appropriately and sitting back comfortably in bed. General Appearance: cooperative HEENT normocephalic, head/scalp atraumatic, hearing grossly normal bilaterally, nasal mucous membranes and turbinates normal and moist oral mucous membranes Eyes PERRL, EOMs intact bilaterally and conjunctivae normal Neck full ROM Chest inspection of chest normal Resp Resp Narrative: Mild increased work of breathing noted on BiPAP. Diffuse crackles noted bilaterally with diminished breath sounds. No wheezing noted. Cardio regular rate, regular rhythm, no murmurs and peripheral pulses 2+ throughout GI normal to inspection, nondistended, normoactive bowel sounds, soft to palpation, non-tender and non-distended Back/Spine normal ROM Extremity Extremity Narrative: +2-3 lower extremity pitting edema noted. Skin no rashes or lesions noted Neuro moves all extremities and no focal motor deficits Speech: speech normal Psych mental status grossly normal Medical Records Data Medical Nutrition Assessment Dietitian: Malnutrition Criteria Met Start: 03/28/24 13:59 Freq: Status: Active Protocol: Document 04/01/24 15:34 (Rec: 04/01/24 15:34 [id number]) Nutrition Malnutrition Evidence of Yes Malnutrition Exists Malnutrition (severe Chronic ): Evidenced By Suboptimal Energy Intake (Severe),Weight Loss (Severe) Clinical Problem Chronic Disease or Condition Related Malnutrition Etiology severe related to inadequate oral intake and GI surgery Signs/Symptoms as evidenced by 26% unintentional weight loss x 6 months and PO meeting <75% of estimated nutrition needs x 6 months. Status Active Problem Recommendation Dietitian Adjust to liberal regular diet d/t signs and symptoms Recommendations/ of malnutrition. Changes Pt refuses all ONS at this time. Will monitor weight trends, as available. Weight / BMI Weight Weight: 107.9 kg Body Mass Index (BMI) 39.6 ABG / Lab / Microbiology Data 04/02/24 06:10 04/02/24 06:10 Laboratory: Laboratory Results - last 24 hr 03/29/24 05:12: Atypical p-ANCA Negative, ALCA IgG Ab 10, AMCA IgG Ab 49, ACCA IgA Ab 54, IBD Serology Comment Comment, S.cerevisiae (Ken)IgG 35 04/01/24 08:28: TORY-1 Antibody <0.2, SS-A/Ro IgG Antibody < 0.2, SS-B/La IgG Antibody < 0.2, Sm (Quan) Antibody <0.2, WEB MARKETING COORDINATOR Antibody <0.2, Scl-70 Scleroderma Ab <0.2, Double Strand DNA Ab <1, Antichromatin Antibodies <0.2, Centromere B Antibody <0.2 04/02/24 06:10: WBC 7.8, RBC 2.97 L, Hgb 8.8 L, Hct 27.3 L, MCV 91.9, MCH 29.6, MCHC 32.2, RDW Std Deviation 53.2 H, RDW Coeff of Vicki 15.9 H, Plt Count 239, MPV 10.7, Sodium 131 L, Potassium 3.7, Chloride 99, Carbon Dioxide 24.0, Anion Gap 9, BUN 6 L, Creatinine 0.87, Estim Creat Clear Calc 78.73, Est GFR (MDRD) Af Amer 83, Est GFR (MDRD) Non-Af 69, BUN/Creatinine Ratio 6.9 L, Glucose 86, Calcium 8.2 L, Total Bilirubin 0.50, AST 1703 H, ALT 386 H, Alkaline Phosphatase 125 H, Total Protein 5.2 L, Albumin 2.0 L, Globulin 3.2, Albumin/Globulin Ratio 0.6 L, Triglycerides 79, Cholesterol < 50, LDL Cholesterol TNP, VLDL Cholesterol 16, HDL Cholesterol 19 L Microbiology: Microbiology 03/27/24 19:58 Blood Culture (Wb) - Left Hand Blood Culture - Final No growth in 5 days. 03/28/24 05:35 Blood Culture (Wb) - Right Hand Blood Culture - Final No growth in 5 days. Radiography Diagnostic Testing: Radiology Impression Echocardiogram 04/01/24 05:55 Interpretation Summary Severe LV systolic dysfunction. Mid to distal inferior septal and anterior septal severe hypokinesis to akinesis, apical akinesis. Mid to distal inferior severe hypokinesis to akinesis. Estimated LVEF 25 to 30%. Stage I diastolic dysfunction. Moderate to severe mitral valve regurgitation. Moderate tricuspid valve regurgitation. Right ventricular systolic pressure estimated at 40 mmHg. Mild-Moderate (1-2+) aortic valve insufficiency. Ordering Physician: Kassie Hunt Referring Physician: Christoph Coronel Performed By: Anthony Meng RCS D/C Instructions Discharge Diet: No restrictions DC O2, CPAP, BIPAP Needs PSN CPAP & BiPAP: BiPAP & CPAP Settings per PSN Mode BiPAP 04/02/24 12:50 Bipap Delivery Device Face Mask 04/02/24 12:50 BiPAP Inspiratory Pressure 12 04/02/24 12:50 BiPAP Expiratory Pressure 8 04/02/24 12:50 BiPAP Rate 12 04/02/24 12:50 Fraction of Inspired Oxygen ( 30 04/02/24 12:50 FIO2) Home O2 Discharge instructions: No Meaningful Use Info Meaningful Use Meaningful Use Diagnoses (Choose all that apply): None applicable Ischemic Stroke Statin Dosing Therapy Reference: STATIN DOSE THERAPY REFERENCE: * Patients > 75 years receive moderate or high dose statin therapy. * Patients 75 years or YOUNGER should receive HIGH intensity statin dose unless contraindicated. You will be required to document reason for non-treatment if statin daily dose does not meet guidelines. HIGH DOSE STATIN THERAPY DAILY Atorvastatin > than or = to 40 mg Rosuvastatin > than or = to 20 mg Amlodipine + Atorvastatin > than or = to 2.5/40 mg Ezetimibe + Simvastatin 10/80 mg Simvastatin 80mg Discharge Plan Admission Admit Date/Time: 03/27/24 20:57 Primary Reason for Your Visit: abdominal pain, chest pain w/ shortness of breath Attending Provider: Rosendo Avalos Primary Care Provider: Chaparro Mejia Consulting Providers: Christoph Coronel; Olivier Quintero; Lex Lester Discharge Orders/Prescriptions Prescriptions: New budesonide 3 mg Capsule,Delayed,Extend.Release 9 mg PO DAILY 30 Days Qty: 90 0RF cholestyramine (with sugar) 4 gram Powder In Packet 1 ea PO BIDAC 30 Days Qty: 60 0RF spironolactone 25 mg Tablet 12.5 mg PO DAILY 30 Days Qty: 0 0RF aspirin 81 mg Tablet,Chewable 81 mg PO BREAKFAST 30 Days Qty: 0 0RF lisinopril 2.5 mg Tablet 2.5 mg PO DAILY 30 Days Qty: 0 0RF Continued venlafaxine 150 mg capsule,extended release 24hr 150 mg PO QDAY buspirone 30 mg tablet 15 mg PO BID trazodone 100 mg tablet 100 mg PO QHS tizanidine 4 mg tablet 4 mg PO TID pantoprazole [Protonix] 40 mg tablet,delayed release (DR/EC) 40 mg PO BID mecobalamin (vitamin B12) [B12 Active] 1,000 mcg tablet,chewable 1,000 mcg PO QDAY bupropion HCl 200 mg tablet sustained-release 12 hr 200 mg PO DAILY melatonin 5 mg capsule 5 mg PO QHS levothyroxine 125 mcg Tablet 125 mcg PO DAILY@0600 Qty: 0 0RF rosuvastatin 5 mg tablet 5 mg PO QHS fexofenadine [Akilah Allergy] 180 mg tablet 180 mg PO DAILY potassium chloride 20 mEq tablet extended release 20 meq PO BID calcium carbonate [Tums] 200 mg calcium (500 mg) tablet,chewable 400 mg PO Q4H PRN (Reason: heartburn) midodrine 10 mg tablet 10 mg PO TIDCM 15 Days Qty: 45 0RF Held verapamil 240 mg Tablet Extended Release 240 mg PO DAILY Qty: 30 0RF Hold Instructions: Resume on 04/12/24. Discussed with PCP before resuming. furosemide 20 mg Tablet 20 mg PO DAILY 30 Days Qty: 30 0RF Hold Instructions: Resume on 04/12/24. Referrals / Follow Up: Chaparro Mejia MD [Primary Care Provider] - 04/02/24 11:10 am Disposition Disposition (needs filled in before D/C Order can be placed): Acute Care Hospital Charges/Coding Visit Charges Inpatient E&M: 88904 Disch Hosp >30min
[2024-04-02] MEDS: HEPARIN/D5w 25,000 UNITS 25,000 UNITS/250 ML IV.SOLN. 15 UNITS CONT INF (14:00)
--- NOTE | 2024-04-02 14:30 | CASEMGMT ---
Social Work SW called pt's registered nurse hh case manager Rocio Anthony, message left letting her know pt is getting transferred today to [facility]. DARRIAN Atwood
[2024-04-02 15:20] LABS: International Normalized Ratio 2.3; Prothrombin Time (Protime)PT. 26.1 SECONDS (11.7-14.9)
[2024-04-02 15:21] LABS: Partial Thromboplast Time 38.5 Seconds (24.1-36.2)
[2024-04-02 16:09] LABS: Cytoplasmic Ab (C-ANCA) <1:20 titer (Neg:<1:20); Perinuclear Ab (P-ANCA) <1:20 titer (Neg:<1:20)
[2024-04-05 14:08] LABS: Anti-Cardiolipin Ab, IgG, Qn < 9 GPL U/mL (0-14); Anti-Cardiolipin Ab, IgM, Qn < 9 MPL U/mL (0-12); Anti-Thrombin 3 AG, Immunol 81 % (72-124); Antithrombin 3 Function 89 % (75-135); Beta-2-Glycoprotein I IgA <9 (0-25); Beta-2-Glycoprotein I IgG <9 (0-20); Beta-2-Glycoprotein I IgM <9 (0-32); Protein C Antigen 72 % (60-150); Protein C, Functional 89 % (73-180)
[2024-04-05 16:09] LABS: Albumin 2.3 g/dL (2.9-4.4); Alpha-1-Globulins 0.2 g/dL (0.0-0.4); Alpha-2-Globulins 0.7 g/dL (0.4-1.0); Deamidated Gliadin IgA 7 units (0-19); Deamidated Gliadin IgG 2 units (0-19); Dopamine, Pl 159 pg/mL (0-48); Endomysial Antibody IgA Negative (Negative); Epinephrine, Pl 38 pg/mL (0-62); Gamma Globulin 1.1 g/dL (0.4-1.8); Gastrin, Serum 174 pg/mL (0-115); Immunoglobulin A 316 mg/dL (87-352); Immunoglobulin G 1146 mg/dL (586-1602); Immunoglobulin M 120 mg/dL (26-217); Norepinephrine, Pl 1534 pg/mL (0-874); PROEL- TOTAL PROTEIN 5.2 g/dL (6.0-8.5); t-Transglutaminase IgA <2 U/mL (0-3)
== END 2024-04-02 18:15 | disposition short-term general hospital (02) | DRG 347 ==
LOC: ED 20:08 → MS3 20:46 → PCU 04-01 02:24 → ICU 04-02 09:43
PROVIDERS: Family Medicine; Internal Medicine Gastroenterology; Internal Medicine Interventional Cardiology; Admitting Provider Internal Medicine; Emergency Provider Emergency Medicine; PCP Family Medicine; Referring Provider Internal Medicine; Visit Provider Hospitalist
PROC: 0DJD8ZZ Inspection of Lower Intestinal Tract, Via Natural or Artificial Opening Endoscopic (ICD-10-PCS; CPT 45378; principal; 2024-03-29 16:10)
DX: K52.9 Noninfective gastroenteritis and colitis, unspecified (principal); E43 Unspecified severe protein-calorie malnutrition; G93.41 Metabolic encephalopathy; I21.4 Non-ST elevation (NSTEMI) myocardial infarction; I50.21 Acute systolic (congestive) heart failure; K56.7 Ileus, unspecified; E87.20 Acidosis, unspecified; I11.0 Hypertensive heart disease with heart failure; D50.9 Iron deficiency anemia, unspecified; E03.9 Hypothyroidism, unspecified; E66.812 Obesity, class 2; E88.09 Other disorders of plasma-protein metabolism, not elsewhere classified; K21.9 Gastro-esophageal reflux disease without esophagitis; F41.8 Other specified anxiety disorders; J01.30 Acute sphenoidal sinusitis, unspecified; M19.019 Primary osteoarthritis, unspecified shoulder; E83.42 Hypomagnesemia; E78.00 Pure hypercholesterolemia, unspecified; Z66 Do not resuscitate; G89.4 Chronic pain syndrome; Z87.891 Personal history of nicotine dependence; Z68.36 Body mass index [BMI] 36.0-36.9, adult; Z90.710 Acquired absence of both cervix and uterus; Z79.82 Long term (current) use of aspirin; R53.81 Other malaise; Z79.51 Long term (current) use of inhaled steroids; Z79.890 Hormone replacement therapy; Z79.899 Other long term (current) drug therapy; Z79.52 Long term (current) use of systemic steroids; Z79.02 Long term (current) use of antithrombotics/antiplatelets; Z88.5 Allergy status to narcotic agent; Z88.2 Allergy status to sulfonamides; Z88.8 Allergy status to other drugs, medicaments and biological substances; Z82.49 Family history of ischemic heart disease and other diseases of the circulatory system; Z96.619 Presence of unspecified artificial shoulder joint; Z98.0 Intestinal bypass and anastomosis status
CPT/HCPCS: 36415; 70450; 71275; 73700; 74177; 80048; 80053; 80061; 80307; 81001; 81240; 81241; 82077; 82384; 82550; 82607; 82728; 82746; 82784; 82941; 83516; 83540; 83550; 83605; 83615; 83735; 84100; 84165; 84439; 84443; 84481; 84484; 85025; 85027; 85300; 85301; 85302; 85303; 85379; 85610; 85652; 85730; 86036; 86037; 86140; 86141; 86146; 86147; 86225; 86235; 86255; 86334; 86671; 87040; 88305; 93005; 93306; 94002; 94640; 94668; 97162; 97166; 97530; 97535; 97802; 97803; 99285; Q9957; Q9967; A4216; C8929; J1940; J2405